=== PATIENT | female | born 1965 ===

== ENCOUNTER 2016-11-25 02:43 | Inpatient (IN) | payer MEDICAID ==
[2016-11-25 03:09] VITALS: BMI 20.7
[2016-11-25 03:26] LABS: HEMATOCRIT 29.7 % (36.0-48.0); MEAN CELL VOLUME 79.4 fL (80.0-105.0); MEAN CORPUSCULAR HEMOGLOBIN 26.2 pg (25.0-35.0); MEAN PLATELET VOLUME 8.7 fl (7.0-11.0); RED CELL DISTRIBUTION WIDTH 16.6 % (11.5-14.5); WHITE BLOOD COUNT 6.1 10^3/ul (4.5-11.0)
--- NOTE | 2016-11-25 03:26 | ED PDOC ---
Arrival/HPI - General Time Seen by Provider: 11/25/16 02:44 Historian: Patient - History of Present Illness Narrative History of Present Illness (Text): 11/25/16 03:19 Susan Kerr is a 51 year old female, whose past medical history includes MT, asthma, bipolar disorder, cholecystitis, chronic kidney disease, depression, diabetes, DVT, hyperlipidemia, hypertension, uterine CA, Lung CA, and thromboembolic disorder, presents to the emergency department complaining of chest pain and right heal pain. Patient was recently transferred to the [facility], after being treated for right heel osteomyelitis at [facility] (Formerly [facility]). Patient on IV Zosyn and is requesting pain medication for right heal pain. Earlier yesterday, patient developed some chest pain, but no shortness of breath. Currently patient denies any chest pain. Denies fever, chills, headache, nausea, vomiting, diarrhea, urinary symptoms, or any other complaints at this time. Time/Duration: Other (yesterday ) Symptom Onset: Gradual Symptom Course: Improving Activities at Onset: Light Past Medical History - Provider Review Nursing Documentation Reviewed: Yes Family/Social History - Physician Review Nursing Documentation Reviewed: Yes Family/Social History: No Known Family HX Allergies/Home Meds Allergies/Adverse Reactions: Allergies ketorolac [From Toradol] Allergy (Verified 11/25/16 02:56) RASH morphine Allergy (Verified 11/25/16 02:56) VOMITING Home Medications: Home Meds Medication Instructions Recorded Confirmed Albuterol/Ipratropium [Duoneb 3 0.5 - 2.5 mg INH Q6 PRN 11/25/16 11/25/16 mg/0.5 mg (3 ml) UD] Carisoprodol [Soma] 350 mg PO QID PRN 11/25/16 11/25/16 Clopidogrel [Plavix] 75 mg PO DAILY 11/25/16 11/25/16 DiphenhydrAMINE [Benadryl] 25 mg PO HS 11/25/16 11/25/16 Docusate [Colace] 100 mg PO DAILY 11/25/16 11/25/16 Fluticasone Nasal [Flonase] 0.05 mg NS DAILY 11/25/16 11/25/16 Furosemide [Lasix] 20 mg PO BID 11/25/16 11/25/16 HYDROmorphone [Dilaudid] 4 mg PO Q4 PRN 11/25/16 11/25/16 Heparin Sod,Porcine/0.9 % NaCl 30 unit IV Q8 PRN 11/25/16 11/25/16 [Heparin-Ns 30 Units/3 ml Syrng] Insulin Glargine,Hum.rec.anlog 20 unit SQ HS 11/25/16 11/25/16 [Lantus Solostar] Metoprolol Tartrate [Lopressor] 25 mg PO BID 11/25/16 11/25/16 Morphine [Morphine Extended 30 mg PO Q12 11/25/16 11/25/16 Release Tab] Nystatin [Nyamyc] 1 applic TOP DAILY 11/25/16 11/25/16 Pregabalin [Lyrica] 50 mg PO BID 11/25/16 11/25/16 Simvastatin 40 mg PO DAILY 11/25/16 11/25/16 Review of Systems - Physician Review All systems were reviewed & negative as marked: Yes - Review of Systems Constitutional: Normal. absent: Fatigue, Fevers Respiratory: absent: SOB, Cough, Sputum Cardiovascular: Chest Pain. absent: Palpitations, Edema Gastrointestinal: absent: Abdominal Pain, Diarrhea, Nausea, Vomiting Genitourinary Female: Normal. absent: Dysuria, Frequency Musculoskeletal: Other (right heal pain ). absent: Arthralgias, Back Pain, Neck Pain Skin: Normal Neurological: Normal. absent: Headache, Dizziness Psychiatric: Normal Physical Exam Vital Signs Reviewed: Yes Vital Signs Temp Pulse Resp BP Pulse Ox 11/25/16 05:28 89 14 151/93 H 100 11/25/16 02:56 98.0 F 100 H 20 147/92 H 96 Temperature: Afebrile Blood Pressure: Normal Pulse: Regular Respiratory Rate: Normal Appearance: Positive for: Well-Appearing, Non-Toxic, Comfortable Pain Distress: None Mental Status: Positive for: Alert and Oriented X 3 - Systems Exam Head: Present: Atraumatic, Normocephalic Pupils: Present: PERRL Extroacular Muscles: Present: EOMI Conjunctiva: Present: Normal Ears: Present: Normal, NORMAL TM, Normal Canal. No: Erythema, TM Bulging, Fluid Mouth: Present: Moist Mucous Membranes Pharnyx: Present: Normal. No: ERYTHEMA, EXUDATE, TONSILS ENLARGED Neck: Present: Normal Range of Motion Respiratory/Chest: Present: Clear to Auscultation, Good Air Exchange. No: Respiratory Distress, Accessory Muscle Use Cardiovascular: Present: Regular Rate and Rhythm, Normal S1, S2. No: Murmurs Abdomen: Present: Normal Bowel Sounds. No: Tenderness, Distention, Peritoneal Signs Upper Extremity: Present: Normal Inspection. No: Cyanosis, Edema Lower Extremity: Present: NORMAL PULSES, Normal ROM, Neurovascularly Intact, Capillary Refill < 2 s, Other (right heal ulcer, dressing in place. ). No: Edema, CALF TENDERNESS, Cyanosis, Valerie's Sign, Tenderness, Swelling, Erythema, Deformity, Temperature Abnormalties Neurological: Present: GCS=15, CN II-XII Intact, Speech Normal, Motor Func Grossly Intact, Normal Sensory Function Skin: Present: Warm Psychiatric: Present: Alert, Oriented x 3, Normal Insight, Normal Concentration Medical Decision Making ED Course and Treatment: 11/25/16 03:28 Impression: a 51 year old female who presents to the ed complaining of chest pain and right heal pain. States chest pain has resolved now. Plan: -- EKG -- Labs, cardiac enzymes -- CXR -- Duplex lower extremity Progress Notes: 11/25/16 03:29 EKG interpreted by me: Sinus Tachycardia @ 117 bpm. PVCs. LAD. non specific ST/T changes. 11/25/16 04:27 CXR interpreted by me: CXR shows lung masses. US tech informs that Doppler negative for DVT. Patient with a positive d-dimer. Due to poor renal function, will need to under go VQ scan. - Lab Interpretations Lab Results: 11/25/16 03:00 11/25/16 03:00 Lab Results 11/25/16 03:00: D-Dimer, Quantitative 1.55 H 11/25/16 03:00: WBC 6.1, RBC 3.74, Hgb 9.8 L, Hct 29.7 L, MCV 79.4 L, MCH 26.2, MCHC 33.0, RDW 16.6 H, Plt Count 314, MPV 8.7 11/25/16 03:00: Sodium 134, Potassium 5.2 H, Chloride 102, Carbon Dioxide 23, Anion Gap 14, BUN 55 H, Creatinine 1.5 H, Est GFR ( Amer) 44, Est GFR ( Non-Af Amer) 36, Random Glucose 379 H*, Calcium 9.5, Total Bilirubin 0.5, AST 58 H, ALT 66 H, Alkaline Phosphatase 704 H, Lactate Dehydrogenase 499, Total Creatine Kinase 50, Troponin I 0.01, Total Protein 8.0, Albumin 4.0, Globulin 4.0, Albumin/Globulin Ratio 1.0 L 11/25/16 03:00: PT 11.6, INR 1.07, APTT 24.2 - RAD Interpretation Radiology Orders: 11/25/16 03:10 CHEST PORTABLE [RAD] Stat 11/25/16 03:12 DUPLEX LOWER EXTRM VEIN BILAT [US] Stat 11/25/16 04:24 LUNG PERF & VENT SCAN [NM] Stat - Medication Orders Current Medication Orders: Discontinued Medications Hydromorphone HCl (Dilaudid) 2 mg IVP STAT STA Stop: 11/25/16 05:17 Last Admin: 11/25/16 05:27 Dose: 2 mg - Transfer of Care Patient signed out to Dr:: Peoln Pending Radiology Studies:: V/Q Scan/reassess/anticipate admission/final disposition - Scribe Statement The provider has reviewed the documentation as recorded by the Elena Guerrier Provider Attestation: All medical record entries made by the Jennieibe were at my direction and personally dictated by me. I have reviewed the chart and agree that the record accurately reflects my personal performance of the history, physical exam, medical decision making, and the department course for this patient. I have also personally directed, reviewed, and agree with the discharge instructions and disposition. Disposition/Present on Arrival - Present on Arrival Any Indicators Present on Arrival: No - Disposition Have Diagnosis and Disposition been Completed?: No Diagnosis: Chest pain Disposition Time: 07:00 Condition: STABLE Discharge Instructions (ExitCare): Chest Pain (ED)
[2016-11-25 03:27] LABS: BILIRUBIN,TOTAL 0.5 mg/dL (0.2-1.3); CALCIUM 9.5 mg/dL (8.4-10.5); POTASSIUM 5.2 mmol/L (3.6-5.0)
[2016-11-25 03:33] LABS: INR 1.07 (0.93-1.08); PARTIAL THROMBOPLASTIN TIME 24.2 Seconds (23.7-30.8)
[2016-11-25 03:38] LABS: TROPONIN I 0.01 ng/mL
[2016-11-25] MEDS ORDERED: HYDROmorphone 2 mg/ml ISec IVP STA (05:16)
--- NOTE | 2016-11-25 08:45 | CARD ---
APPROVED REPORT EKG Measurement Heart [id number] <Conclusion> Sinus tachycardia Left axis deviation Low voltage QRS Abnormal ECG
--- NOTE | 2016-11-25 08:51 | NM ---
PROCEDURE: Ventilation-perfusion scan HISTORY: r/o DVT COMPARISON: Not available TECHNIQUE: Pulmonary ventilation scan was performed utilizing 35.0 mCi of technetium 99 M DTPA, inhaled. Images of the lungs were obtained in multiple projections. A pulmonary perfusion scan was performed utilizing 4.0 mCi of technetium 99 M and a a administered intravenously. Images of the lungs were obtained in multiple projections. FINDINGS: There is no pulmonary perfusion defect identified. There is no pulmonary ventilation defect identified. Normal examination. No evidence of pulmonary embolism IMPRESSION: Normal examination. No evidence of pulmonary embolism.
--- NOTE | 2016-11-25 11:01 | RAD ---
HISTORY: pain COMPARISON: No prior. FINDINGS: LUNGS: Examination limited. Patient's hands obscure lung apices. No consolidation identified. PLEURA: No significant pleural effusion identified, no pneumothorax apparent. CARDIOVASCULAR: Normal. OSSEOUS STRUCTURES: No significant abnormalities. VISUALIZED UPPER ABDOMEN: Normal. OTHER FINDINGS: None. IMPRESSION: Normal limited examination.
[2016-11-25] MEDS ORDERED: Albuterol-Ipratrop 3 mg / 0.5 (3 ml) UD IH PRN (11:33)
[2016-11-25] MEDS ORDERED: Morphine 2 mg/ml ISec IVP PRN (12:09)
[2016-11-25] MEDS: Insulin Reg-LOW-Coverage SC SCH ×2 (12:30→18:16)
--- NOTE | 2016-11-25 12:51 | US ---
HISTORY: Leg pain and swelling. Evaluate for DVT PHYSICIAN(S): Celio Elder MD. TECHNIQUE: Duplex sonography and color-flow Doppler with graded compression were used to evaluate the deep venous systems of both lower extremities. The left tibial vessels are not visualized. FINDINGS: The visualized deep venous systems of both lower extremities are sonographically normal and compressible. Normal wave forms and augmentation are seen. There is no sonographic evidence for deep venous thrombosis in the visualized segments of both lower extremities. IMPRESSION: No sonographic evidence for deep venous thrombosis in the visualized segments of both lower extremities. Limited study
[2016-11-25 13:11] LABS: CHOLESTEROL 201 mg/dL (130-200); PHOSPHOROUS 3.6 mg/dL (2.5-4.5)
[2016-11-25 13:22] LABS: TROPONIN I < 0.01 ng/mL
[2016-11-25 13:26] LABS: IRON 78 ug/dL (45-180)
--- NOTE | 2016-11-25 13:30 | CP.PCM.CON ---
History of Present Illness - History of Present Illness History of Present Illness: left heel pain and ulcer 51 yo female [place] LEFT ARM PIC LINE Review of Systems - Constitutional Constitutional: Lethargy, Weight Loss, Weakness - EENT Eyes: absent: As Per HPI, Blind Spots, Blurred Vision, Change in Vision, Decreased Night Vision, Diplopia, Discharge, Dry Eye, Exophthalmos, Floaters, Irritation, Itchy Eyes, Loss of Peripheral Vision, Pain, Photophobia, Requires Corrective Lenses, Sees Flashes, Spots in Vision, Tunnel Vision, Other Visual Disturbances, Loss of Vision, Other Ears: absent: As Per HPI, Decreased Hearing, Ear Discharge, Ear Pain, Tinnitus, Abnormal Hearing, Disequilibrium, Dizziness, Other Nose/Mouth/Throat: absent: As Per HPI, Epistaxis, Nasal Congestion, Nasal Discharge, Nasal Obstruction, Nasal Trauma, Nose Pain, Post Nasal Drip, Sinus Pain, Sinus Pressure, Bleeding Gums, Change in Voice, Dental Pain, Dry Mouth, Dysphagia, Halitosis, Hoarsness, Lip Swelling, Mouth Lesions, Mouth Pain, Odynophagia, Sore Throat, Throat Swelling, Tongue Swelling, Facial Pain, Neck Pain, Neck Mass, Other - Breasts Breasts: absent: As Per HPI, Change in Shape, Mass, Pain, Nipple Discharge, Nipple Inversion, Skin Changes, Swelling, Other - Cardiovascular Cardiovascular: absent: As Per HPI, Acrocyanosis, Chest Pain, Chest Pain at Rest , Chest Pain with Activity, Claudication, Diaphoresis, Dyspnea, Dyspnea on Exertion, Edema, Irregular Heart Rhythm, Pain Radiating to Arm/Neck/Jaw, Leg Edema, Leg Ulcers, Lightheadedness, Orthopnea, Palpitations, Paroxysmal Nocturnal Dyspnea, Pedal Edema, Radiating Pain, Rapid Heart Rate, Slow Heart Rate, Syncope, Other - Respiratory Respiratory: absent: As Per HPI, Cough, Dyspnea, Hemoptysis, Dyspnea on Exertion , Wheezing, Snoring, Stridor, Pain on Inspiration, Chest Congestion, Excessive Mucous Production, Change in Mucous Color, Pain with Coughing, Other - Gastrointestinal Gastrointestinal: absent: As Per HPI, Abdominal Pain, Belching, Bloating, Change in Bowel Habits, Change in Stool Character, Coffee Ground Emesis, Constipation, Cramping, Diarrhea, Dyspepsia, Dysphagia, Early Satiety, Excessive Flatus, Fecal Incontinence, Heartburn, Hematemesis, Hematochezia, Loose Stools, Melena, Nausea, Odynophagia, Temesmus, Vomiting, Other - Genitourinary Genitourinary: absent: As Per HPI, Change in Urinary Stream, Difficulty Urinating, Dysuria, Flank Pain, Hematuria, Pyuria, Nocturia, Urinary Incontinence, Urinary Frequency, Urinary Hesitance, Urinary Urgency, Voiding Freq/Small Amts, Freq UTI, Hx Renal/Bladder Calculi, Hx /Renal Surgery, Bladder Distension, Other - Musculoskeletal Musculoskeletal: Abnormal Gait, Muscle Weakness - Integumentary Integumentary: Lesions, Non-Healing Lesions, Skin Pain, Skin Ulcer (LEFT HEAL LARGE ULCR DICHARGE ERYTHEMA), Swelling, Wounds - Endocrine Endocrine: absent: As Per HPI, Change in Body Appearance, Change in Libido, Cold Intolorance, Deepening of Voice, Excessive Sweating, Fatigue, Flushing, Heat Intolorance, Increase in Ring/Shoe/Hat Size, Palpitations, Polydipsia, Polyphagia, Polyuria, Other Past Patient History - Past Medical History & Family History Past Medical History?: Yes - Past Social History Smoking Status: Never Smoked - CARDIAC Hx Heart Attack: Yes Hx Hypertension: Yes - PULMONARY Hx Asthma: Yes Hx Lung Cancer: Yes - HEENT Hx HEENT Problems: Yes Other/Comment: diff vision - RENAL Hx Renal Failure: Yes Other/Comment: cancer - ENDOCRINE/METABOLIC Hx Diabetes Mellitus Type 2: Yes - INTEGUMENTARY Other/Comment: osteomylitis r foot - MUSCULOSKELETAL/RHEUMATOLOGICAL Hx Osteomyelitis: Yes (r foot) Other/Comment: dvt rue - PSYCHIATRIC Hx Bipolar Disorder: Yes Hx Depression: Yes Hx Substance Use: No Other/Comment: drug seeking - SURGICAL HISTORY Other/Comment: r nephrectomy/r foot. / picc left upper arm Meds Allergies/Adverse Reactions: Allergies Allergy/AdvReac Type Severity Reaction Status Date / Time ketorolac [From Toradol] Allergy RASH Verified 11/25/16 02:56 morphine Allergy VOMITING Verified 11/25/16 02:56 - Medications Medications: Current Medications Albuterol/Ipratropium (Duoneb 3 Mg/0.5 Mg (3 Ml) Ud) 3 ml IH [id number] PRN PRN Reason: Shortness of Breath Aspirin (Aspirin Chewable) 81 mg PO DAILY [facility] Atorvastatin Calcium (Lipitor) 20 mg PO DIN [facility] Clopidogrel Bisulfate (Plavix) 75 mg PO DAILY [facility] Last Admin: 11/25/16 12:36 Dose: Not Given Docusate Sodium (Colace) 100 mg PO DAILY [facility] Furosemide (Lasix) 20 mg PO BID [facility] Heparin Sodium (Porcine) (Heparin) 5,000 units SC Q12 MIKKI PRN Reason: Protocol Hydromorphone HCl (Dilaudid) 0.5 mg IVP Q4H PRN PRN Reason: Pain, severe (8-10) Sodium Chloride (Sodium Chloride 0.9%) 1,000 mls @ 75 mls/hr IV .[id number] [facility] Ceftaroline Fosamil 400 mg/ (Sodium Chloride) 100 mls @ 100 mls/hr IVPB Q12 MIKKI PRN Reason: Protocol Stop: 12/04/16 22:01 Insulin Detemir (Levemir) 10 unit SC HS [facility] Insulin Human Regular (Humulin R Low) 0 units SC ACHS MIKKI PRN Reason: Protocol Last Admin: 11/25/16 12:30 Dose: 4 units Metoprolol Tartrate (Lopressor) 25 mg PO BID [facility] Pantoprazole Sodium (Protonix Inj) 40 mg IVP DAILY [facility] Physical Exam - Constitutional Appears: Well - Head Exam Head Exam: ATRAUMATIC, NORMAL INSPECTION, NORMOCEPHALIC - Eye Exam Eye Exam: EOMI, Normal appearance, PERRL Pupil Exam: NORMAL ACCOMODATION, PERRL - ENT Exam ENT Exam: Mucous Membranes Moist, Normal Exam. absent: Mucous Membranes Dry, Normal External Ear Exam, Normal Oropharynx, TM's Normal Bilaterally - Neck Exam Neck exam: Positive for: Normal Inspection - Respiratory Exam Respiratory Exam: Clear to Auscultation Bilateral, NORMAL BREATHING PATTERN. absent: Accessory Muscle Use, Chest Wall Tenderness, Decreased Breath Sounds, Prolonged Expiratory Phase, Rales, Rhonchi, Wheezes, Respiratory Distress, Stridor - Cardiovascular Exam Cardiovascular Exam: REGULAR RHYTHM. absent: Bradycardia, Tachycardia, Clicks, Diastolic murmur, Gallop, Irregular Rhythm, JVD, RRR, Rubs, +S1, +S2, +S4, Systolic Murmur - GI/Abdominal Exam GI & Abdominal Exam: Normal Bowel Sounds, Soft - Rectal Exam Rectal Exam: NORMAL INSPECTION. absent: Deferred, Black Stool, Bloody Stool, Hemorrhoids, Fecal Impaction - Exam Exam: Circumcision, NORMAL INSPECTION External exam: NORMAL EXTERNAL EXAM Speculum exam: NORMAL SPECULUM EXAM Bimanual exam: NORMAL BIMANUAL EXAM - Extremities Exam Extremities exam: Positive for: normal inspection - Expanded Lower Extremities Exam Left Foot/Toe exam: abrasion, full ROM, laceration, nail avulsion, normal inspection , onychomycosis, puncture wound, subungual hematoma, swelling, tenderness, tenderness at base of 5th metatarsal, amputation, calcaneal tenderness, crepitus , deformity, dislocation, ecchymosis, erythema (LEFT HEEL LARGE ULCERN AND DISCHARGE), foreign body - Back Exam Back exam: NORMAL INSPECTION - Neurological Exam Neurological exam: Alert, CN II-XII Intact, Normal Gait, Oriented x3, Reflexes Normal - Psychiatric Exam Psychiatric exam: Normal Affect, Normal Mood - Skin Skin Exam: Dry, Intact, Normal Color, Warm Results - Vital Signs Recent Vital Signs: Last Vital Signs Temp 98.1 F 11/25/16 11:00 Pulse 93 H 11/25/16 11:00 Resp 16 11/25/16 11:00 BP 142/77 11/25/16 11:00 Pulse Ox 95 11/25/16 11:00 - Labs Result Diagrams: 11/25/16 03:00 11/25/16 03:00 Assessment & Plan (1) Chest pain Status: Acute (2) Intractable left heel pain Status: Acute (3) Open wound of left heel Status: Acute (4) Cellulitis of left heel Status: Acute (5) Foot osteomyelitis, left Status: Acute (6) Renal failure Status: Acute (7) Hepatitis Status: Acute - Assessment and Plan (Free Text) Plan: [facility] VASCULAR COOK CULTURES PT HAS LEFT ARM PIC LINE DOPPLERS WOUND CULTURES RENAL EVAL OLD RECORDS ,CULTURE AND IMAGING - Date & Time Date: 11/25/16 Time: 13:00
--- NOTE | 2016-11-25 14:15 | CP.PCM.CON ---
History of Present Illness - History of Present Illness History of Present Illness: reason for Consult: chest pain, Hx of CAD. 51 year old female tx from [facility] b/c of nonhealing left foot ulcer, Hx of CAD, S/p PTCA with two stents at [facility] 2 years ago, c/o reproducible chest pain and non healing ulcer on lef foot PMHX. Bipolar CAD as above CKD PAD [place] ca [place] DVT with thromoembolic issuesHx of AK as above shx denies smoking, ETOH mostly bed bound. Past Patient History - Past Medical History & Family History Past Medical History?: Yes - Past Social History Smoking Status: Never Smoked - CARDIAC Hx Heart Attack: Yes Hx Hypertension: Yes - PULMONARY Hx Asthma: Yes Hx Lung Cancer: Yes - HEENT Hx HEENT Problems: Yes Other/Comment: diff vision - RENAL Hx Renal Failure: Yes Other/Comment: cancer - ENDOCRINE/METABOLIC Hx Diabetes Mellitus Type 2: Yes - INTEGUMENTARY Other/Comment: osteomylitis r foot - MUSCULOSKELETAL/RHEUMATOLOGICAL Hx Osteomyelitis: Yes (r foot) Other/Comment: dvt rue - PSYCHIATRIC Hx Bipolar Disorder: Yes Hx Depression: Yes Hx Substance Use: No Other/Comment: drug seeking - SURGICAL HISTORY Other/Comment: r nephrectomy/r foot. / picc left upper arm Meds Allergies/Adverse Reactions: Allergies Allergy/AdvReac Type Severity Reaction Status Date / Time ketorolac [From Toradol] Allergy RASH Verified 11/25/16 02:56 morphine Allergy VOMITING Verified 11/25/16 02:56 - Medications Medications: Current Medications Albuterol/Ipratropium (Duoneb 3 Mg/0.5 Mg (3 Ml) Ud) 3 ml IH [id number] PRN PRN Reason: Shortness of Breath Aspirin (Aspirin Chewable) 81 mg PO DAILY [facility] Atorvastatin Calcium (Lipitor) 20 mg PO DIN [facility] Clopidogrel Bisulfate (Plavix) 75 mg PO DAILY [facility] Last Admin: 11/25/16 12:36 Dose: Not Given Docusate Sodium (Colace) 100 mg PO DAILY [facility] Furosemide (Lasix) 20 mg PO BID [facility] Heparin Sodium (Porcine) (Heparin) 5,000 units SC Q12 [facility] PRN Reason: Protocol Hydromorphone HCl (Dilaudid) 0.5 mg IVP Q4H PRN PRN Reason: Pain, severe (8-10) Sodium Chloride (Sodium Chloride 0.9%) 1,000 mls @ 75 mls/hr IV .[id number] [facility] Ceftaroline Fosamil 400 mg/ (Sodium Chloride) 100 mls @ 100 mls/hr IVPB Q12 [facility] PRN Reason: Protocol Stop: 12/04/16 22:01 Insulin Detemir (Levemir) 10 unit SC HS [facility] Insulin Human Regular (Humulin R Low) 0 units SC ACHS [facility] PRN Reason: Protocol Last Admin: 11/25/16 12:30 Dose: 4 units Metoprolol Tartrate (Lopressor) 25 mg PO BID [facility] Pantoprazole Sodium (Protonix Inj) 40 mg IVP DAILY [facility] Results - Vital Signs Recent Vital Signs: Last Vital Signs Temp 98.1 F 11/25/16 11:00 Pulse 93 H 11/25/16 11:00 Resp 16 11/25/16 11:00 BP 142/77 11/25/16 11:00 Pulse Ox 95 11/25/16 11:00 - Labs Result Diagrams: 11/25/16 03:00 11/25/16 03:00 Labs: Laboratory Results - last 24 hr 11/25/16 11/25/16 11/25/16 12:55 12:55 12:55 Phosphorus 3.6 Magnesium 2.0 Iron TIBC % Saturation Troponin I < 0.01 < 0.01 NT-Pro-B Natriuret Pep 1060 H Triglycerides 111 Cholesterol 201 H LDL Cholesterol Direct 103 HDL Cholesterol 54 TSH 3rd Generation 3.86 11/25/16 12:55 Phosphorus Magnesium Iron 78 TIBC 285 % Saturation 27 Troponin I NT-Pro-B Natriuret Pep Triglycerides Cholesterol LDL Cholesterol Direct HDL Cholesterol TSH 3rd Generation - EKG Data EKG comments: sinus tach at 108 Assessment & Plan - Assessment and Plan (Free Text) Assessment: 51 year old female tx from [facility] with Non healing left foot ulcer C/o atypical chest pain , tenderness with reproducible Hx of Mi, Hx of PTCa two years ago in [facility] HTN Hyperlidemias CKD Hx Of DVT with thrombo-embolic issues Bipolar diorder Hx of Ut Ca hx of lung Ca So far no evidece of ACS / STEMI/NSTEMI Plan: ASA/ Plavix/ beta rima/ statin/Lovenox f/o serial CPK, doubt mi lizzy foloow echo to assessd lvfx TSH. Lipids profile, Ha1c. thx
[2016-11-25] MEDS: Sodium Chloride 0.9% 1,000 ML IV SCH (14:58)
[2016-11-25] MEDS: HYDROmorphone 0.5 mg/0.5 ml ISec IVP PRN ×3 (15:02→22:57)
--- NOTE | 2016-11-25 16:13 | CP.PCM.HP ---
<TRES ARTHUR - Last Filed: 11/25/16 16:13> History of Present Illness - History of Present Illness History of Present Illness: History of Present Illness: cc: chest pain/L heel pain HPI: 51 year old female presents with a one day duration of chest pain and left heel pain. Patient reports that the chest pain lasted about one hour in duration and started when she was mistakenly transferred to an [facility] by mistake after undergoing wound debridement of an ulcer complicated by osteomyelitis on her L heel one week ago at [facility]. Today she reports that the chest pain is still present but has lessened in intensity. In the ED, she reported that the chest pain had completely resolved but that she began experiencing it to a lesser degree once she was moved to the floor and that it was now accompanied by palpitations. She reports that her L heel pain has been present for quite some time and that this isn't a new complication. Patient denies fevers, chills, headaches, changes in vision, LOC, dysphagia, shortness of breath, hemoptysis, focal motor deficits, abdominal pain, nausea, vomiting, or diarrhea. 12point ROS as per HPI above, otherwise negative PMHx: PR (2016), hyperlipidemia, diabetes, HTN, CKD, asthma, bipolar disease, cholecystitis, depression, DVT, uterine cancer, lung cancer and thromboembolic disease PSHx: Removal of R kidney d/t cancer Allergies: Ketorolac, Morphine Family Hx: Father: Heart Attack, Diabetes; Mother: Lung Ca Social Hx: Nonsmoker, No alcohol, No drug use, Lives in [place] with son, aunt and cousin. Present on Admission - Present on Admission Any Indicators Present on Admission: No History of DVT/PE: Yes History of Uncontrolled Diabetes: Yes Urinary Catheter: No Decubitus Ulcer Present: No Past Patient History - Tetanus Immunizations Tetanus Immunization: Unknown - Past Medical History & Family History Past Medical History?: Yes - Past Social History Smoking Status: Never Smoked Alcohol: None Drugs: Denies Home Situation {Lives}: With Family - CARDIAC Hx Heart Attack: Yes Hx Hypertension: Yes - PULMONARY Hx Asthma: Yes Hx Lung Cancer: Yes - HEENT Hx HEENT Problems: Yes Other/Comment: diff vision - RENAL Hx Chronic Kidney Disease: Yes Hx Renal Failure: Yes Other/Comment: cancer - ENDOCRINE/METABOLIC Hx Diabetes Mellitus Type 2: Yes - INTEGUMENTARY Other/Comment: osteomylitis r foot - MUSCULOSKELETAL/RHEUMATOLOGICAL Hx Osteomyelitis: Yes (r foot) Other/Comment: dvt rue - PSYCHIATRIC Hx Bipolar Disorder: Yes Hx Depression: Yes Hx Substance Use: No Other/Comment: drug seeking - SURGICAL HISTORY Other/Comment: r nephrectomy/r foot. / picc left upper arm Meds Allergies/Adverse Reactions: Allergies Allergy/AdvReac Type Severity Reaction Status Date / Time ketorolac [From Toradol] Allergy RASH Verified 11/25/16 02:56 morphine Allergy VOMITING Verified 11/25/16 02:56 Physical Exam - Constitutional Appears: Unkempt - Head Exam Head Exam: ATRAUMATIC, NORMAL INSPECTION - Eye Exam Eye Exam: EOMI, Normal appearance - ENT Exam ENT Exam: Mucous Membranes Moist, Normal Exam - Neck Exam Neck exam: Positive for: Full Rom - Respiratory Exam Respiratory Exam: Clear to Auscultation Bilateral, NORMAL BREATHING PATTERN. absent: Rales, Rhonchi, Wheezes, Respiratory Distress - Cardiovascular Exam Cardiovascular Exam: REGULAR RHYTHM, RRR. absent: Systolic Murmur - GI/Abdominal Exam GI & Abdominal Exam: Normal Bowel Sounds. absent: Distended, Firm, Guarding, Tenderness - Extremities Exam Extremities exam: Negative for: calf tenderness, pedal edema - Neurological Exam Neurological exam: Alert, Oriented x3 - Psychiatric Exam Psychiatric exam: Flat Affect - Skin Skin Exam: Dry, Intact, Normal Color, Warm Additional comments: Open wound on L heel; PICC line in place on L upper ext Results - Vital Signs Recent Vital Signs: Last Vital Signs Temp 98.1 F 11/25/16 11:00 Pulse 93 H 11/25/16 11:00 Resp 16 11/25/16 11:00 BP 142/77 11/25/16 11:00 Pulse Ox 95 11/25/16 11:00 - Labs Result Diagrams: 11/25/16 03:00 11/25/16 03:00 Labs: Laboratory Results - last 24 hr 11/25/16 11/25/16 11/25/16 12:55 12:55 12:55 Phosphorus 3.6 Magnesium 2.0 Iron TIBC % Saturation Troponin I < 0.01 < 0.01 NT-Pro-B Natriuret Pep 1060 H Triglycerides 111 Cholesterol 201 H LDL Cholesterol Direct 103 HDL Cholesterol 54 TSH 3rd Generation 3.86 11/25/16 12:55 Phosphorus Magnesium Iron 78 TIBC 285 % Saturation 27 Troponin I NT-Pro-B Natriuret Pep Triglycerides Cholesterol LDL Cholesterol Direct HDL Cholesterol TSH 3rd Generation Assessment & Plan - Assessment and Plan (Free Text) Assessment: 51 yo female with a history of PR, hyperlipidemia, diabetes, HTN, CKD, asthma, DVT, uterine cancer, lung cancer and thromboembolic disease S/P left heel osteo debridement presents with chest pain and left heel pain. 1. Chest pain/ACS rule out -EKG in ED showed sinus tachycardia and left axis deviation -cardiology consulted -first troponin negative -BNP elevated at 1060 -ECHO pending -TSH, lipid panel, A1c -mag/phos within normal limits -continue aspirin, lipitor, plavix, lasix, lopressor 2. Elevated d-dimer/history of cancer and thromboembolic disease -V/Q scan negative -LE venous doppler showed no DVT's -placed on heparin drip 3. S/P Left heel ulcer debridement/osteomyelitis -consulted ID and podiatry -started on ceftaroline -wound and blood cultures pending -pt has left arm PICC line -will try to obtain records of procedure done at [facility] -PT/OT eval 4. Anemia -Hb/Hct are 9.8/29.7 -B12, Folate, Iron Studies pending 5. Asthma -Duoneb q4 PRN 6. GI/DVT prophylaxis -protonix/heparin Patient seen and case discussed with attending physician, Dr. Poe. Decision To Admit - . Admitting Physician: Matthew Poe <Matthew Poe - Last Filed: 11/25/16 17:47> Results - Vital Signs Recent Vital Signs: Last Vital Signs Temp 98.2 F 11/25/16 11:19 Pulse 90 11/25/16 11:19 Resp 16 11/25/16 11:19 BP 163/83 H 11/25/16 11:19 Pulse Ox 95 11/25/16 11:00 - Labs Result Diagrams: 11/25/16 03:00 11/25/16 03:00 Labs: Laboratory Results - last 24 hr 11/25/16 11/25/16 11/25/16 12:55 12:55 12:55 Phosphorus 3.6 Magnesium 2.0 Iron TIBC % Saturation Ferritin 33.1 Troponin I < 0.01 < 0.01 NT-Pro-B Natriuret Pep 1060 H Triglycerides 111 Cholesterol 201 H LDL Cholesterol Direct 103 HDL Cholesterol 54 TSH 3rd Generation 3.86 11/25/16 12:55 Phosphorus Magnesium Iron 78 TIBC 285 % Saturation 27 Ferritin Troponin I NT-Pro-B Natriuret Pep Triglycerides Cholesterol LDL Cholesterol Direct HDL Cholesterol TSH 3rd Generation Attending/Attestation - Attestation I have personally seen and examined this patient.: Yes I have fully participated in the care of the patient.: Yes I have reviewed all pertinent clinical information: Yes Notes (Text): 11/25/16 17:38 51 year old female with past medical history of PR, diabetes, hypertension, ? history of DVT, ?history of uterine and lung cancer (patient is poor historian) , chronic left heel ulcer and ?OM who was recently discharged to [place] on iv antibiotics who presents with complaint of chest pain. Will obtain serial cardiac enzymes to rule out ACS. Cardiology evaluation is requested and echocardiogram is ordered. Continue with aspirin, plavix, statin and lopressor. Ddimer was elevated however VQ scan and LE doppler is negative. Patient is on SC heparin. ID and podiatry evaluation is requested for left heel ulcer. Patient reports she was on iv antibiotics which we will resume and request for prior recent medical records from [facility]. Patient also reports CKD and anemia (possibly from anemia of chronic disease) which we will continue to monitor. Patient reports she will follow up with her pmd/oncologist for history of lung and uterine cancer. Matthew Poe MD Hospitalist.
[2016-11-25 17:35] LABS: URINE BILIRUBIN NEGATIVE (NEGATIVE); URINE BLOOD TRACE-INTACT (NEGATIVE); URINE GLUCOSE (UA) 250 mg/dL (NEGATIVE); URINE KETONE NEGATIVE (NEGATIVE); URINE LEUKOCYTE ESTERASE NEGATIVE Leu/uL (NEGATIVE); URINE PROTEIN 100 mg/dL (<30 mg/dL); URINE UROBILINOGEN 0.2 E.U./dL (<1 E.U./dL)
[2016-11-25 17:42] LABS: URINE APPEARANCE CLEAR (CLEAR); URINE COLOR YELLOW (YELLOW)
[2016-11-25 17:49] LABS: FOLATE > 20.0 ng/mL
[2016-11-25 17:57] LABS: URINE WBC 0 - 2 /hpf (0-6)
[2016-11-25] MEDS ORDERED: Piperacillin/Tazobact 3.375 gm 100 ML IVPB SCH (18:00)
[2016-11-25] MEDS: Insulin Detemir 100 units/ml Vial (Levemir) SC SCH (21:53)
[2016-11-26] MEDS: Insulin Reg-LOW-Coverage SC SCH ×4 (00:14→19:30)
[2016-11-26] MEDS ORDERED: HYDROmorphone 0.5 mg/0.5 ml ISec IVP STA ×2 (00:41→14:17)
[2016-11-26] MEDS: Sodium Chloride 0.9% 1,000 ML IV SCH (00:55)
[2016-11-26] MEDS: HYDROmorphone 0.5 mg/0.5 ml ISec IVP PRN ×3 (03:04→13:29)
[2016-11-26 06:31] LABS: ADD MANUAL DIFF? NO
[2016-11-26 06:41] LABS: BASO # 0.04 K/mm3 (0.0-2.0); BASO % 0.7 % (0.0-3.0); EOS # 0.2 (0.0-0.7); EOS % 3.1 % (1.5-5.0); GRAN # 2.72 (1.4-6.5); GRAN % 44.6 % (50.0-68.0); HEMATOCRIT 27.5 % (36.0-48.0); LYMPH # 2.8 (1.2-3.4); LYMPH % 45.2 % (22.0-35.0); MEAN CELL VOLUME 79.9 fL (80.0-105.0); MEAN CORPUSCULAR HEMOGLOBIN 25.9 pg (25.0-35.0); MEAN CORPUSCULAR HGB CONC 32.4 g/dl (31.0-37.0); MEAN PLATELET VOLUME 9.2 fl (7.0-11.0); MONO # 0.4 (0.1-0.6); MONO % 6.4 % (1.0-6.0); PLATELET COUNT 283 10^3/uL (120.0-450.0); RED CELL DISTRIBUTION WIDTH 16.8 % (11.5-14.5); WHITE BLOOD COUNT 6.1 10^3/ul (4.5-11.0)
[2016-11-26 07:08] LABS: ALB/GLOB RATIO 0.9 (1.1-1.8); BILIRUBIN,TOTAL 0.5 mg/dL (0.2-1.3); CALCIUM 9.3 mg/dL (8.4-10.5); MAGNESIUM 1.8 mg/dL (1.7-2.2); PHOSPHOROUS 3.3 mg/dL (2.5-4.5); POTASSIUM 4.1 mmol/L (3.6-5.0); TOTAL PROTEIN 7.2 g/dL (5.8-8.3)
[2016-11-26] MEDS ORDERED: HYDROmorphone 1 mg/ml ISec IVP STA (09:11)
--- NOTE | 2016-11-26 09:42 | CP.PCM.PN ---
Subjective - Date & Time of Evaluation Date of Evaluation: 11/26/16 Time of Evaluation: 07:00 - Subjective Subjective: Denies any chest pain today, but mild tender on left side of chest. Objective - Vital Signs/Intake and Output Vital Signs (last 24 hours): Temp Pulse Resp BP Pulse Ox 97.8 F 78 18 128/74 98 11/26/16 04:00 11/26/16 04:00 11/26/16 04:00 11/26/16 04:00 11/26/16 04:00 Intake and Output: 11/26/16 11/26/16 06:59 18:59 Intake Total 310 Output Total 1200 Balance -890 - Medications Medications: Current Medications Albuterol/Ipratropium (Duoneb 3 Mg/0.5 Mg (3 Ml) Ud) 3 ml IH [id number] PRN PRN Reason: Shortness of Breath Aspirin (Aspirin Chewable) 81 mg PO DAILY [facility] Atorvastatin Calcium (Lipitor) 20 mg PO DIN [facility] Last Admin: 11/25/16 18:15 Dose: 20 mg Clopidogrel Bisulfate (Plavix) 75 mg PO DAILY [facility] Last Admin: 11/25/16 12:36 Dose: Not Given Docusate Sodium (Colace) 100 mg PO DAILY [facility] Furosemide (Lasix) 20 mg PO BID [facility] Last Admin: 11/25/16 18:15 Dose: 20 mg Heparin Sodium (Porcine) (Heparin) 5,000 units SC Q12 [facility] PRN Reason: Protocol Last Admin: 11/26/16 00:19 Dose: Not Given Hydromorphone HCl (Dilaudid) 0.5 mg IVP Q4H PRN PRN Reason: Pain, severe (8-10) Last Admin: 11/26/16 07:40 Dose: 0.5 mg Sodium Chloride (Sodium Chloride 0.9%) 1,000 mls @ 75 mls/hr IV .[id number] [facility] Last Admin: 11/26/16 00:55 Dose: 75 mls/hr Ceftaroline Fosamil 400 mg/ (Sodium Chloride) 100 mls @ 100 mls/hr IVPB Q12 [facility] PRN Reason: Protocol Stop: 12/04/16 22:01 Last Admin: 11/25/16 21:52 Dose: 100 mls/hr Insulin Detemir (Levemir) 10 unit SC [facility] Last Admin: 11/25/16 21:53 Dose: 10 unit Insulin Human Regular (Humulin R Low) 0 units SC ACHS [facility] PRN Reason: Protocol Last Admin: 11/26/16 00:14 Dose: Not Given Metoprolol Tartrate (Lopressor) 25 mg PO BID [facility] Last Admin: 11/25/16 18:14 Dose: 25 mg Pantoprazole Sodium (Protonix Inj) 40 mg IVP DAILY [facility] - Labs Labs: 11/26/16 05:45 11/26/16 05:45 PT 11.6 Seconds (9.9-11.8) 11/25/16 03:00 INR 1.07 (0.93-1.08) 11/25/16 03:00 APTT 24.2 Seconds (23.7-30.8) 11/25/16 03:00 - Respiratory Exam Respiratory Exam: Chest Wall Tenderness Additional comments: Tenderness on left dide of chest. Assessment and Plan - Assessment and Plan (Free Text) Assessment: Atypical chest pain, with tenderness on left side of chest. Hx of CAD ,S/p Ptca 2 tears ago in [facility] HTN Hyperlidemia Non healing wouind in left foot Hx of Ut ca Hx of lung Csa No evidence of ACS/ nor unstable angina CKD Bipolar disorder Plan: Aggressive medical treatment Dc telemetry.
--- NOTE | 2016-11-26 10:42 | CP.PCM.CON ---
<Andree Mcdonough - Last Filed: 11/26/16 10:37> History of Present Illness - History of Present Illness History of Present Illness: 51 year old female with PMHx including LA, hyperlipidemia, diabetes, HTN, CKD, asthma, bipolar disease, cholecystitis, depression, DVT, uterine cancer, lung cancer and thromboembolic disease was seen at bedside with attending, Dr. Brady regarding left heel ulcer. Patient states that a week ago she was at a [facility] ([place]) and had a wound debridement of her left heel. She states that she has pain to her left heel. Admits that she has not walked in 4 years. She denies any n/v/f/c/sob/cp. Past Patient History - Tetanus Immunizations Tetanus Immunization: Unknown - Past Medical History & Family History Past Medical History?: Yes - Past Social History Smoking Status: Never Smoked Alcohol: None Drugs: Denies Home Situation {Lives}: With Family - CARDIAC Hx Heart Attack: Yes Hx Hypertension: Yes - PULMONARY Hx Asthma: Yes Hx Lung Cancer: Yes - HEENT Hx HEENT Problems: Yes Other/Comment: diff vision - RENAL Hx Chronic Kidney Disease: Yes Hx Renal Failure: Yes Other/Comment: cancer - ENDOCRINE/METABOLIC Hx Diabetes Mellitus Type 2: Yes - HEMATOLOGICAL/ONCOLOGICAL Hx Anemia: Yes Hx Cancer: Yes Hx Chemotherapy: Yes - INTEGUMENTARY Other/Comment: osteomylitis r foot - MUSCULOSKELETAL/RHEUMATOLOGICAL Hx Osteomyelitis: Yes (r foot) Other/Comment: dvt rue - GASTROINTESTINAL Hx Gastrointestinal Disorders: No - GENITOURINARY/GYNECOLOGICAL Hx Genitourinary Disorders: No - PSYCHIATRIC Hx Bipolar Disorder: Yes Hx Depression: Yes Hx Substance Use: No Other/Comment: drug seeking - SURGICAL HISTORY Other/Comment: r nephrectomy/r foot. / picc left upper arm Meds Allergies/Adverse Reactions: Allergies Allergy/AdvReac Type Severity Reaction Status Date / Time ketorolac [From Toradol] Allergy RASH Verified 11/25/16 02:56 - Medications Medications: Current Medications Albuterol/Ipratropium (Duoneb 3 Mg/0.5 Mg (3 Ml) Ud) 3 ml IH [id number] PRN PRN Reason: Shortness of Breath Aspirin (Aspirin Chewable) 81 mg PO DAILY [facility] Last Admin: 11/26/16 10:18 Dose: 81 mg Atorvastatin Calcium (Lipitor) 20 mg PO DIN [facility] Last Admin: 11/25/16 18:15 Dose: 20 mg Clopidogrel Bisulfate (Plavix) 75 mg PO DAILY [facility] Last Admin: 11/26/16 10:18 Dose: 75 mg Docusate Sodium (Colace) 100 mg PO DAILY [facility] Last Admin: 11/26/16 10:18 Dose: 100 mg Furosemide (Lasix) 20 mg PO BID [facility] Last Admin: 11/26/16 10:25 Dose: Not Given Heparin Sodium (Porcine) (Heparin) 5,000 units SC Q12 [facility] PRN Reason: Protocol Last Admin: 11/26/16 10:27 Dose: Not Given Hydromorphone HCl (Dilaudid) 0.5 mg IVP Q4H PRN PRN Reason: Pain, severe (8-10) Last Admin: 11/26/16 07:40 Dose: 0.5 mg Sodium Chloride (Sodium Chloride 0.9%) 1,000 mls @ 75 mls/hr IV .[id number] [facility] Last Admin: 11/26/16 00:55 Dose: 75 mls/hr Ceftaroline Fosamil 400 mg/ (Sodium Chloride) 100 mls @ 100 mls/hr IVPB Q12 [facility] PRN Reason: Protocol Stop: 12/04/16 22:01 Last Admin: 11/25/16 21:52 Dose: 100 mls/hr Insulin Detemir (Levemir) 10 unit SC HS [facility] Last Admin: 11/25/16 21:53 Dose: 10 unit Insulin Human Regular (Humulin R Low) 0 units SC ACHS [facility] PRN Reason: Protocol Last Admin: 11/26/16 10:19 Dose: Not Given Metoprolol Tartrate (Lopressor) 25 mg PO BID [facility] Last Admin: 11/26/16 10:26 Dose: Not Given Pantoprazole Sodium (Protonix Inj) 40 mg IVP DAILY [facility] Last Admin: 11/26/16 10:17 Dose: 40 mg Physical Exam - Constitutional Appears: Non-toxic, No Acute Distress - Extremities Exam Additional comments: Left lower extremity focused exam: Vasc: DP and PT pulses noted. CFT < 3 seconds to digits x5. Skin temperature warm to cool from proximal to distal Derm: Ulceration noted to the left heel measuring approximately 4 cm by 4 cm by 0.4 cm with exposed bone. no abscess noted, no necrotic tissue noted, no drainage noted, edema noted to the maren-wound area. Sutures noted to the proximal and distal aspect of ulcer to left heel Ortho: Tenderness to palpation of the left heel Neuro: Gross sensation diminished - Neurological Exam Neurological exam: Alert, Oriented x3 - Psychiatric Exam Psychiatric exam: Normal Affect, Normal Mood Results - Vital Signs Recent Vital Signs: Last Vital Signs Temp 97.8 F 11/26/16 04:00 Pulse 78 11/26/16 04:00 Resp 18 11/26/16 04:00 BP 128/74 11/26/16 04:00 Pulse Ox 98 11/26/16 04:00 - Labs Result Diagrams: 11/26/16 05:45 11/26/16 05:45 Labs: Laboratory Results - last 24 hr 11/25/16 11/25/16 11/25/16 12:26 12:55 12:55 WBC RBC Hgb Hct MCV MCH MCHC RDW Plt Count MPV Gran % Lymph % (Auto) [place] % (Auto) Eos % (Auto) Baso % (Auto) Gran # Lymph # [place] # Eos # Baso # Sodium Potassium Chloride Carbon Dioxide Anion Gap BUN Creatinine Est GFR ( Amer) Est GFR (Non-Af Amer) POC Glucose (mg/dL) 344 H Random Glucose Hemoglobin A1c 8.1 H Calcium Phosphorus 3.6 Magnesium 2.0 Iron TIBC % Saturation Ferritin 33.1 Total Bilirubin AST ALT Alkaline Phosphatase Troponin I < 0.01 NT-Pro-B Natriuret Pep 1060 H Total Protein Albumin Globulin Albumin/Globulin Ratio Triglycerides 111 Cholesterol 201 H LDL Cholesterol Direct 103 HDL Cholesterol 54 Vitamin B12 282 Folate > 20.0 TSH 3rd Generation Urine Color Urine Appearance Urine pH Ur Specific [place] Urine Protein Urine Glucose (UA) Urine Ketones Urine Blood Urine Nitrate Urine Bilirubin Urine Urobilinogen Ur Leukocyte Esterase Urine RBC Urine WBC Ur Epithelial Cells 11/25/16 11/25/16 11/25/16 12:55 12:55 12:55 WBC RBC Hgb Hct MCV MCH MCHC RDW Plt Count MPV Gran % Lymph % (Auto) Catron % (Auto) Eos % (Auto) Baso % (Auto) Gran # Lymph # [place] # Eos # Baso # Sodium Potassium Chloride Carbon Dioxide Anion Gap BUN Creatinine Est GFR ( Amer) Est GFR (Non-Af Amer) POC Glucose (mg/dL) Random Glucose Hemoglobin A1c Calcium Phosphorus Magnesium Iron 78 TIBC 285 % Saturation 27 Ferritin Total Bilirubin AST ALT Alkaline Phosphatase Troponin I < 0.01 NT-Pro-B Natriuret Pep Total Protein Albumin Globulin Albumin/Globulin Ratio Triglycerides Cholesterol LDL Cholesterol Direct HDL Cholesterol Vitamin B12 Folate TSH 3rd Generation 3.86 Urine Color Urine Appearance Urine pH Ur Specific [place] Urine Protein Urine Glucose (UA) Urine Ketones Urine Blood Urine Nitrate Urine Bilirubin Urine Urobilinogen Ur Leukocyte Esterase Urine RBC Urine WBC Ur Epithelial Cells 11/25/16 11/25/16 11/25/16 16:10 17:20 21:18 WBC RBC Hgb Hct MCV MCH MCHC RDW Plt Count MPV Gran % Lymph % (Auto) Catron % (Auto) Eos % (Auto) Baso % (Auto) Gran # Lymph # Cat[place] # Eos # Baso # Sodium Potassium Chloride Carbon Dioxide Anion Gap BUN Creatinine Est GFR ( Amer) Est GFR (Non-Af Amer) POC Glucose (mg/dL) 304 H 170 H Random Glucose Hemoglobin A1c Calcium Phosphorus Magnesium Iron TIBC % Saturation Ferritin Total Bilirubin AST ALT Alkaline Phosphatase Troponin I NT-Pro-B Natriuret Pep Total Protein Albumin Globulin Albumin/Globulin Ratio Triglycerides Cholesterol LDL Cholesterol Direct HDL Cholesterol Vitamin B12 Folate TSH 3rd Generation Urine Color Yellow Urine Appearance Clear Urine pH 6.0 Ur Specific [place] 1.025 Urine Protein 100 H Urine Glucose (UA) 250 H Urine Ketones Negative Urine Blood Trace-intact H Urine Nitrate Negative Urine Bilirubin Negative Urine Urobilinogen 0.2 Ur Leukocyte Esterase Negative Urine RBC 1 - 3 Urine WBC 0 - 2 Ur Epithelial Cells 3 - 4 11/26/16 11/26/16 05:45 05:45 WBC 6.1 RBC 3.44 L Hgb 8.9 L Hct 27.5 L MCV 79.9 L MCH 25.9 MCHC 32.4 RDW 16.8 H Plt Count 283 MPV 9.2 Gran % 44.6 L Lymph % (Auto) 45.2 H Catron % (Auto) 6.4 H Eos % (Auto) 3.1 Baso % (Auto) 0.7 Gran # 2.72 Lymph # 2.8 Catron # 0.4 Eos # 0.2 Baso # 0.04 Sodium 142 Potassium 4.1 Chloride 108 H Carbon Dioxide 25 Anion Gap 13 BUN 47 H Creatinine 1.4 Est GFR ( Amer) 48 Est GFR (Non-Af Amer) 39 POC Glucose (mg/dL) Random Glucose 119 H Hemoglobin A1c Calcium 9.3 Phosphorus 3.3 Magnesium 1.8 Iron TIBC % Saturation Ferritin Total Bilirubin 0.5 AST 46 H ALT 53 Alkaline Phosphatase 580 H Troponin I NT-Pro-B Natriuret Pep Total Protein 7.2 Albumin 3.5 Globulin 3.7 Albumin/Globulin Ratio 0.9 L Triglycerides Cholesterol LDL Cholesterol Direct HDL Cholesterol Vitamin B12 Folate TSH 3rd Generation Urine Color Urine Appearance Urine pH Ur Specific [place] Urine Protein Urine Glucose (UA) Urine Ketones Urine Blood Urine Nitrate Urine Bilirubin Urine Urobilinogen Ur Leukocyte Esterase Urine RBC Urine WBC Ur Epithelial Cells Assessment & Plan - Assessment and Plan (Free Text) Assessment: 51 year old female with ulceration to left heel with exposed bone and osteomylitis Plan: patient examined and evaluated with attending, Dr. Brady chart, labs, vitals reviewed wound culture-pending left heel cleansed with normal sterile saline sutures removed from distal aspect of ulcer, proximal sutures left intact left heel dressed with 4x4 gauze, ABD, kerlix heel offloading shoe to LLE multipodus boots ordered, to be worn at all times in bed to offload heels b/l Stable for d/c to [facility] for longterm abx <Sheridan Brady - Last Filed: 11/29/16 14:47> Meds - Medications Medications: Current Medications Albuterol/Ipratropium (Duoneb 3 Mg/0.5 Mg (3 Ml) Ud) 3 ml IH [id number] PRN PRN Reason: Shortness of Breath Aspirin (Aspirin Chewable) 81 mg PO DAILY [facility] Last Admin: 11/29/16 09:46 Dose: 81 mg Atorvastatin Calcium (Lipitor) 20 mg PO DIN [facility] Last Admin: 11/28/16 17:49 Dose: 20 mg Clopidogrel Bisulfate (Plavix) 75 mg PO DAILY [facility] Last Admin: 11/29/16 09:46 Dose: 75 mg Docusate Sodium (Colace) 100 mg PO DAILY [facility] Last Admin: 11/29/16 09:45 Dose: 100 mg Furosemide (Lasix) 20 mg PO BID [facility] Last Admin: 11/29/16 09:42 Dose: Not Given Heparin Sodium (Porcine) (Heparin) 5,000 units SC Q12 [facility] PRN Reason: Protocol Last Admin: 11/28/16 21:28 Dose: Not Given Hydromorphone HCl (Dilaudid) 0.5 mg IVP Q4H PRN PRN Reason: Pain, severe (8-10) Last Admin: 11/29/16 14:41 Dose: 0.5 mg Sodium Chloride (Sodium Chloride 0.9%) 1,000 mls @ 75 mls/hr IV .[id number] [facility] Last Admin: 11/29/16 10:44 Dose: Not Given Piperacillin Sod/Tazobactam Sod (Zosyn 3.375 In Ns 100ml) 100 mls @ 200 mls/hr IVPB Q6 [facility] PRN Reason: Protocol Stop: 12/06/16 12:01 Last Admin: 11/29/16 13:40 Dose: Not Given Insulin Detemir (Levemir) 10 unit SC [facility] Last Admin: 11/28/16 22:39 Dose: Not Given Insulin Human Regular (Humulin R Low) 0 units SC [facility] PRN Reason: Protocol Last Admin: 11/29/16 13:40 Dose: Not Given Lorazepam (Ativan) 0.5 mg PO TID PRN; Protocol PRN Reason: Anxiety Last Admin: 11/29/16 09:46 Dose: 0.5 mg Metoprolol Tartrate (Lopressor) 25 mg PO BID [facility] Last Admin: 11/29/16 09:47 Dose: 25 mg Morphine Sulfate (Morphine Extended Release Tab) 30 mg PO Q12 [facility] Last Admin: 11/29/16 09:45 Dose: 30 mg Risperidone (Risperdal Oral Soln) 0.5 mg PO TID PRN; Protocol PRN Reason: agitation/psychosis Trazodone HCl (Desyrel) 50 mg PO [facility] Last Admin: 11/28/16 21:33 Dose: 50 mg Ziprasidone (Geodon Inj) 10 mg IM Q6 PRN; Protocol PRN Reason: Agitation Results - Vital Signs Recent Vital Signs: Last Vital Signs Temp 98.4 F 11/29/16 08:00 Pulse 72 11/29/16 09:47 Resp 18 11/29/16 08:00 BP 123/88 11/29/16 09:47 Pulse Ox 96 11/29/16 08:00 - Labs Result Diagrams: 11/29/16 06:00 11/28/16 06:10 Labs: Laboratory Results - last 24 hr 11/28/16 11/28/16 11/29/16 16:08 22:03 06:00 WBC 3.6 L D RBC 3.38 L Hgb 8.7 L Hct 27.0 L MCV 79.9 L MCH 25.7 MCHC 32.2 RDW 16.2 H Plt Count 90 L MPV 9.8 Gran % 41.9 L Lymph % (Auto) 48.3 H Catron % (Auto) 6.1 H Eos % (Auto) 3.4 Baso % (Auto) 0.3 Gran # 1.50 Lymph # 1.7 Catron # 0.2 Eos # 0.1 Baso # 0.01 POC Glucose (mg/dL) 226 H 208 H Attending/Attestation - Attestation I have personally seen and examined this patient.: Yes I have fully participated in the care of the patient.: Yes I have reviewed all pertinent clinical information: Yes
--- NOTE | 2016-11-26 10:59 | CP.PCM.PN ---
Subjective - Date & Time of Evaluation Date of Evaluation: 11/26/16 Time of Evaluation: 10:00 - Subjective Subjective: Patient is still complaining of occasional pain in the left foot, no fevers overnight. Objective - Vital Signs/Intake and Output Vital Signs (last 24 hours): Temp Pulse Resp BP Pulse Ox 97.8 F 78 18 128/74 98 11/26/16 04:00 11/26/16 04:00 11/26/16 04:00 11/26/16 04:00 11/26/16 04:00 Intake and Output: 11/26/16 11/26/16 06:59 18:59 Intake Total 310 Output Total 1200 Balance -890 - Medications Medications: Current Medications Albuterol/Ipratropium (Duoneb 3 Mg/0.5 Mg (3 Ml) Ud) 3 ml IH [id number] PRN PRN Reason: Shortness of Breath Aspirin (Aspirin Chewable) 81 mg PO DAILY [facility] Atorvastatin Calcium (Lipitor) 20 mg PO DIN [facility] Last Admin: 11/25/16 18:15 Dose: 20 mg Clopidogrel Bisulfate (Plavix) 75 mg PO DAILY [facility] Last Admin: 11/25/16 12:36 Dose: Not Given Docusate Sodium (Colace) 100 mg PO DAILY [facility] Furosemide (Lasix) 20 mg PO BID [facility] Last Admin: 11/25/16 18:15 Dose: 20 mg Heparin Sodium (Porcine) (Heparin) 5,000 units SC Q12 [facility] PRN Reason: Protocol Last Admin: 11/26/16 00:19 Dose: Not Given Hydromorphone HCl (Dilaudid) 0.5 mg IVP Q4H PRN PRN Reason: Pain, severe (8-10) Last Admin: 11/26/16 07:40 Dose: 0.5 mg Sodium Chloride (Sodium Chloride 0.9%) 1,000 mls @ 75 mls/hr IV .[id number] [facility] Last Admin: 11/26/16 00:55 Dose: 75 mls/hr Ceftaroline Fosamil 400 mg/ (Sodium Chloride) 100 mls @ 100 mls/hr IVPB Q12 [facility] PRN Reason: Protocol Stop: 12/04/16 22:01 Last Admin: 11/25/16 21:52 Dose: 100 mls/hr Insulin Detemir (Levemir) 10 unit SC [facility] Last Admin: 11/25/16 21:53 Dose: 10 unit Insulin Human Regular (Humulin R Low) 0 units SC ACHS [facility] PRN Reason: Protocol Last Admin: 11/26/16 00:14 Dose: Not Given Metoprolol Tartrate (Lopressor) 25 mg PO BID [facility] Last Admin: 11/25/16 18:14 Dose: 25 mg Pantoprazole Sodium (Protonix Inj) 40 mg IVP DAILY [facility] - Labs Labs: 11/26/16 05:45 11/26/16 05:45 PT 11.6 Seconds (9.9-11.8) 11/25/16 03:00 INR 1.07 (0.93-1.08) 11/25/16 03:00 APTT 24.2 Seconds (23.7-30.8) 11/25/16 03:00 - Constitutional Appears: Non-toxic, No Acute Distress - Head Exam Head Exam: NORMAL INSPECTION - Neck Exam Neck Exam: absent: Meningismus - Respiratory Exam Respiratory Exam: Decreased Breath Sounds - Cardiovascular Exam Cardiovascular Exam: +S1, +S2 - GI/Abdominal Exam GI & Abdominal Exam: Soft. absent: Tenderness - Extremities Exam Additional comments: left foot with dry dressings in place Assessment and Plan - Assessment and Plan (Free Text) Plan: Assessment Probable left foot osteomyelitis (was on antibiotics prior to admission) chest pain rule out acute coronary syndrome S/P left PICC line placement dyslipidemia DM HTN history of cholecystitis chronic renal failure history of uterine cancer CAD history of depression history of DVT Plan Continue Teflaro (day 2) and follow up Podiatry evaluation and old medical records to see culture results from the bone (patient apparently had a sample of the bone from the heel removed) will follow clinically
--- NOTE | 2016-11-26 15:34 | RAD ---
HISTORY: PICC line placement COMPARISON: No prior. FINDINGS: LUNGS: No active pulmonary disease. PLEURA: No significant pleural effusion identified, no pneumothorax apparent. CARDIOVASCULAR: Normal. OSSEOUS STRUCTURES: No significant abnormalities. VISUALIZED UPPER ABDOMEN: Normal. OTHER FINDINGS: There is a left-sided PICC line which terminates in the SVC IMPRESSION: No active disease.
[2016-11-26] MEDS: HYDROmorphone 1 mg/ml ISec IVP PRN ×2 (17:51→21:28)
--- NOTE | 2016-11-26 18:47 | CP.PCM.PN ---
<TRES ARTHUR - Last Filed: 11/26/16 18:31> Subjective - Date & Time of Evaluation Date of Evaluation: 11/26/16 Time of Evaluation: 12:15 - Subjective Subjective: Medicine Progress Note: Pt seen and assessed at bedside. Pt had complaints of her pain not being controlled with current pain regimen. Left heel pain has not improved, per pt. Pt denies headache, fever, changes in vision, SOB, or nausea/vomiting. Objective - Vital Signs/Intake and Output Vital Signs (last 24 hours): Temp Pulse Resp BP Pulse Ox 97.9 F 80 20 141/81 98 11/26/16 16:00 11/26/16 16:00 11/26/16 16:00 11/26/16 16:00 11/26/16 16:00 Intake and Output: 11/26/16 11/26/16 06:59 18:59 Intake Total 310 Output Total 1200 Balance -890 - Medications Medications: Current Medications Albuterol/Ipratropium (Duoneb 3 Mg/0.5 Mg (3 Ml) Ud) 3 ml IH [id number] PRN PRN Reason: Shortness of Breath Aspirin (Aspirin Chewable) 81 mg PO DAILY [facility] Last Admin: 11/26/16 10:18 Dose: 81 mg Atorvastatin Calcium (Lipitor) 20 mg PO DIN [facility] Last Admin: 11/25/16 18:15 Dose: 20 mg Clopidogrel Bisulfate (Plavix) 75 mg PO DAILY [facility] Last Admin: 11/26/16 10:18 Dose: 75 mg Docusate Sodium (Colace) 100 mg PO DAILY [facility] Last Admin: 11/26/16 10:18 Dose: 100 mg Furosemide (Lasix) 20 mg PO BID [facility] Last Admin: 11/26/16 10:25 Dose: Not Given Heparin Sodium (Porcine) (Heparin) 5,000 units SC Q12 [facility] PRN Reason: Protocol Last Admin: 11/26/16 10:27 Dose: Not Given Hydromorphone HCl (Dilaudid) 1 mg IVP Q4H PRN PRN Reason: Pain, severe (8-10) Last Admin: 11/26/16 17:51 Dose: 1 mg Sodium Chloride (Sodium Chloride 0.9%) 1,000 mls @ 75 mls/hr IV .[id number] [facility] Last Admin: 11/26/16 00:55 Dose: 75 mls/hr Ceftaroline Fosamil 400 mg/ (Sodium Chloride) 100 mls @ 100 mls/hr IVPB Q12 [facility] PRN Reason: Protocol Stop: 12/04/16 22:01 Last Admin: 11/26/16 10:45 Dose: Not Given Insulin Detemir (Levemir) 10 unit SC HS [facility] Last Admin: 11/25/16 21:53 Dose: 10 unit Insulin Human Regular (Humulin R Low) 0 units SC ACHS [facility] PRN Reason: Protocol Last Admin: 11/26/16 13:14 Dose: Not Given Metoprolol Tartrate (Lopressor) 25 mg PO BID [facility] Last Admin: 11/26/16 10:26 Dose: Not Given Pantoprazole Sodium (Protonix Inj) 40 mg IVP DAILY [facility] Last Admin: 11/26/16 10:17 Dose: 40 mg - Labs Labs: 11/26/16 05:45 11/26/16 05:45 PT 11.6 Seconds (9.9-11.8) 11/25/16 03:00 INR 1.07 (0.93-1.08) 11/25/16 03:00 APTT 24.2 Seconds (23.7-30.8) 11/25/16 03:00 - Constitutional Appears: No Acute Distress - Head Exam Head Exam: ATRAUMATIC, NORMAL INSPECTION - Eye Exam Eye Exam: EOMI, Normal appearance - ENT Exam ENT Exam: Mucous Membranes Moist, Normal Exam - Respiratory Exam Respiratory Exam: Clear to Ausculation Bilateral, NORMAL BREATHING PATTERN. absent: Rales, Rhonchi, Wheezes - Cardiovascular Exam Cardiovascular Exam: REGULAR RHYTHM, +S1, +S2. absent: Murmur - GI/Abdominal Exam GI & Abdominal Exam: absent: Distended, Tenderness - Extremities Exam Extremities Exam: absent: Calf Tenderness, Pedal Edema - Neurological Exam Neurological Exam: Alert, Awake - Psychiatric Exam Psychiatric exam: Agitated - Skin Skin Exam: Dry, Intact, Normal Color, Warm Additional comments: Wound dressing on L heel Assessment and Plan - Assessment and Plan (Free Text) Assessment: 51 yo female with a history of MT, hyperlipidemia, diabetes, HTN, CKD, asthma, DVT, uterine cancer, lung cancer and thromboembolic disease S/P left heel osteo debridement presents with chest pain and left heel pain. 1. S/P Left heel ulcer debridement/osteomyelitis -sutures removed, wound dressing reapplied, heel offloading shoe to LLE, multipodus boots to be worn at all times in bed and patient stable to [facility], per podiatry -continue Teflaro, per ID -blood and wound cultures negative after 24 hours -Chest Xray confirmed PICC line terminating in SVC, dressing applied to relieve pain -reviewed [facility] records which revealed no bone culture or imaging of LLE -PT/OT will see once boot is on patient -case assistant working on fpc placement; only care facility that has accepted patient thus far has been refused by patient; trying to reach family members for home care assessment -pain controlled with increase in dilaudid to 1mg IV q4 2. Atypical chest pain/ACS rule out -cardiology doubts MT, DC telemetry -three troponins negative -awaiting TSH and lipid panel -continue aspirin, lipitor, plavix, lasix, lopressor 3. Elevated d-dimer/history of cancer and thromboembolic disease -V/Q scan negative -LE venous doppler showed no DVT's 4. Anemia -Hb/Hct are 8.9/27.5 -Iron studies within normal limits -awaiting B12, Folate -continuing to monitor with daily CBC's 5. Asthma -Duoneb q4 PRN 6. GI/DVT prophylaxis -protonix/heparin Patient seen and case discussed with attending physician, Dr. Poe. <Matthew Poe - Last Filed: 11/27/16 07:22> Objective - Vital Signs/Intake and Output Vital Signs (last 24 hours): Temp Pulse Resp BP Pulse Ox 97.9 F 80 20 156/94 H 98 11/26/16 16:00 11/26/16 19:27 11/26/16 16:00 11/26/16 19:27 11/26/16 16:00 Intake and Output: 11/27/16 11/27/16 06:59 18:59 Intake Total 360 Balance 360 - Medications Medications: Current Medications Albuterol/Ipratropium (Duoneb 3 Mg/0.5 Mg (3 Ml) Ud) 3 ml IH [id number] PRN PRN Reason: Shortness of Breath Aspirin (Aspirin Chewable) 81 mg PO DAILY [facility] Last Admin: 11/26/16 10:18 Dose: 81 mg Atorvastatin Calcium (Lipitor) 20 mg PO DIN [facility] Last Admin: 11/26/16 21:25 Dose: Not Given Clopidogrel Bisulfate (Plavix) 75 mg PO DAILY [facility] Last Admin: 11/26/16 10:18 Dose: 75 mg Docusate Sodium (Colace) 100 mg PO DAILY [facility] Last Admin: 11/26/16 10:18 Dose: 100 mg Furosemide (Lasix) 20 mg PO BID [facility] Last Admin: 11/26/16 19:27 Dose: 20 mg Heparin Sodium (Porcine) (Heparin) 5,000 units SC Q12 [facility] PRN Reason: Protocol Last Admin: 11/27/16 00:06 Dose: Not Given Hydromorphone HCl (Dilaudid) 1 mg IVP Q4H PRN PRN Reason: Pain, severe (8-10) Last Admin: 11/27/16 04:31 Dose: 1 mg Sodium Chloride (Sodium Chloride 0.9%) 1,000 mls @ 75 mls/hr IV .[id number] [facility] Last Admin: 11/26/16 00:55 Dose: 75 mls/hr Ceftaroline Fosamil 400 mg/ (Sodium Chloride) 100 mls @ 100 mls/hr IVPB Q12 [facility] PRN Reason: Protocol Stop: 12/04/16 22:01 Last Admin: 11/27/16 00:03 Dose: Not Given Insulin Detemir (Levemir) 10 unit SC HS [facility] Last Admin: 11/27/16 00:05 Dose: Not Given Insulin Human Regular (Humulin R Low) 0 units SC ACHS [facility] PRN Reason: Protocol Last Admin: 11/27/16 00:05 Dose: Not Given Metoprolol Tartrate (Lopressor) 25 mg PO BID [facility] Last Admin: 11/26/16 19:27 Dose: 25 mg Pantoprazole Sodium (Protonix Inj) 40 mg IVP DAILY [facility] Last Admin: 11/26/16 10:17 Dose: 40 mg - Labs Labs: 11/26/16 05:45 11/26/16 05:45 PT 11.6 Seconds (9.9-11.8) 11/25/16 03:00 INR 1.07 (0.93-1.08) 11/25/16 03:00 APTT 24.2 Seconds (23.7-30.8) 11/25/16 03:00 Attending/Attestation - Attestation I have personally seen and examined this patient.: Yes I have fully participated in the care of the patient.: Yes I have reviewed all pertinent clinical information, including history, physical exam and plan: Yes Notes (Text): 11/26/16 51 year old female with past medical history of MT, diabetes, hypertension, ? history of DVT, ?history of uterine and lung cancer (patient is poor historian) , chronic left heel ulcer and ?OM who was recently discharged to [facility] on iv antibiotics who presented with complaint of chest pain. Serial cardiac enzymes were negative and ACS was ruled out. Cardiology evaluation was appreciated. Continue with aspirin, plavix, statin and lopressor. Ddimer was elevated however VQ scan and LE doppler is negative. Patient is on SC heparin. ID and podiatry evaluation was appreciated for chronic left heel ulcer. Prior recent medical records from [facility] were reviewed. Continue with iv antibiotics as per ID and wound care as per podiatry. Picc line will need to be assessed by vascular nurse and cxr. Patient also has CKD and anemia (possibly from anemia of chronic disease) which we will continue to monitor. Patient reports she will follow up with her pmd/oncologist for history of lung and uterine cancer. Case was discussed with case assistant / director of social work regarding d/c planning to [facility]. Matthew Poe MD Hospitalist.
[2016-11-27] MEDS: Insulin Reg-LOW-Coverage SC SCH ×5 (00:05→21:12)
[2016-11-27] MEDS: Insulin Detemir 100 units/ml Vial (Levemir) SC SCH ×2 (00:05→21:11)
[2016-11-27] MEDS: HYDROmorphone 1 mg/ml ISec IVP PRN ×4 (00:59→12:59)
[2016-11-27 08:29] LABS: ADD MANUAL DIFF? NO
[2016-11-27 08:33] LABS: BASO # 0.05 K/mm3 (0.0-2.0); BASO % 0.8 % (0.0-3.0); EOS # 0.2 (0.0-0.7); EOS % 3.1 % (1.5-5.0); GRAN # 3.24 (1.4-6.5); GRAN % 50.2 % (50.0-68.0); HEMATOCRIT 28.8 % (36.0-48.0); LYMPH # 2.4 (1.2-3.4); LYMPH % 37.7 % (22.0-35.0); MEAN CELL VOLUME 79.8 fL (80.0-105.0); MEAN CORPUSCULAR HEMOGLOBIN 26.3 pg (25.0-35.0); MEAN PLATELET VOLUME 8.8 fl (7.0-11.0); MONO # 0.5 (0.1-0.6); MONO % 8.2 % (1.0-6.0); PLATELET COUNT 274 10^3/uL (120.0-450.0); RED CELL DISTRIBUTION WIDTH 16.2 % (11.5-14.5); WHITE BLOOD COUNT 6.5 10^3/ul (4.5-11.0)
[2016-11-27 08:41] LABS: BILIRUBIN,TOTAL 0.6 mg/dL (0.2-1.3); CALCIUM 9.2 mg/dL (8.4-10.5); POTASSIUM 3.9 mmol/L (3.6-5.0); TOTAL PROTEIN 7.4 g/dL (5.8-8.3)
--- NOTE | 2016-11-27 10:05 | CP.PCM.PN ---
Subjective - Date & Time of Evaluation Date of Evaluation: 11/27/16 Time of Evaluation: 09:15 - Subjective Subjective: C/o pain in back, No chest pain Objective - Vital Signs/Intake and Output Vital Signs (last 24 hours): Temp Pulse Resp BP Pulse Ox 97.8 F 72 20 144/75 97 11/27/16 07:39 11/27/16 07:39 11/27/16 07:39 11/27/16 07:39 11/27/16 07:39 Intake and Output: 11/27/16 11/27/16 06:59 18:59 Intake Total 360 Balance 360 - Medications Medications: Current Medications Albuterol/Ipratropium (Duoneb 3 Mg/0.5 Mg (3 Ml) Ud) 3 ml IH [id number] PRN PRN Reason: Shortness of Breath Aspirin (Aspirin Chewable) 81 mg PO DAILY [facility] Last Admin: 11/26/16 10:18 Dose: 81 mg Atorvastatin Calcium (Lipitor) 20 mg PO DIN [facility] Last Admin: 11/26/16 21:25 Dose: Not Given Clopidogrel Bisulfate (Plavix) 75 mg PO DAILY [facility] Last Admin: 11/26/16 10:18 Dose: 75 mg Docusate Sodium (Colace) 100 mg PO DAILY [facility] Last Admin: 11/26/16 10:18 Dose: 100 mg Furosemide (Lasix) 20 mg PO BID [facility] Last Admin: 11/26/16 19:27 Dose: 20 mg Heparin Sodium (Porcine) (Heparin) 5,000 units SC Q12 [facility] PRN Reason: Protocol Last Admin: 11/27/16 00:06 Dose: Not Given Hydromorphone HCl (Dilaudid) 1 mg IVP Q4H PRN PRN Reason: Pain, severe (8-10) Last Admin: 11/27/16 07:56 Dose: 1 mg Sodium Chloride (Sodium Chloride 0.9%) 1,000 mls @ 75 mls/hr IV .[id number] [facility] Last Admin: 11/26/16 00:55 Dose: 75 mls/hr Ceftaroline Fosamil 400 mg/ (Sodium Chloride) 100 mls @ 100 mls/hr IVPB Q12 [facility] PRN Reason: Protocol Stop: 12/04/16 22:01 Last Admin: 11/27/16 00:03 Dose: Not Given Insulin Detemir (Levemir) 10 unit SC [facility] Last Admin: 11/27/16 00:05 Dose: Not Given Insulin Human Regular (Humulin R Low) [address] [facility] PRN Reason: Protocol Last Admin: 11/27/16 00:05 Dose: Not Given Metoprolol Tartrate (Lopressor) 25 mg PO BID [facility] Last Admin: 11/26/16 19:27 Dose: 25 mg Morphine Sulfate (Morphine Extended Release Tab) 30 mg PO Q12 [facility] Pantoprazole Sodium (Protonix Inj) 40 mg IVP DAILY [facility] Last Admin: 11/26/16 10:17 Dose: 40 mg - Labs Labs: 11/27/16 08:20 11/27/16 08:20 PT 11.6 Seconds (9.9-11.8) 11/25/16 03:00 INR 1.07 (0.93-1.08) 11/25/16 03:00 APTT 24.2 Seconds (23.7-30.8) 11/25/16 03:00 - Constitutional Appears: Non-toxic - Head Exam Head Exam: ATRAUMATIC - Eye Exam Eye Exam: EOMI - ENT Exam ENT Exam: Mucous Membranes Moist - Neck Exam Neck Exam: Full ROM - Respiratory Exam Respiratory Exam: Chest Wall Tenderness, Clear to Ausculation Bilateral Additional comments: On left side - Cardiovascular Exam Cardiovascular Exam: REGULAR RHYTHM Assessment and Plan - Assessment and Plan (Free Text) Assessment: Non ischemic chest pain with tenderness CAD Hx of two Stent in past no evidence of ACS ... during this admission Bipolar diorder Ca Ut Back olivia, Lung ca non healinf left foot ulcer Plan: Aggressive medical treatment Adequate analgesia CVs status ok no further cardiac w.u is waerrented.
[2016-11-27] MEDS: Morphine 30 mg SR Tab PO SCH ×2 (10:07→21:00)
[2016-11-27] MEDS ORDERED: Lidocaine 2% Inj (20ml) ONE (10:27)
--- NOTE | 2016-11-27 11:02 | CP.PCM.PN ---
<Andree Mcdonough - Last Filed: 11/27/16 10:57> Subjective - Date & Time of Evaluation Date of Evaluation: 11/27/16 Time of Evaluation: 10:58 - Subjective Subjective: 51 year old female was seen at bedside with attending, Dr. Brady regarding left heel ulcer. She states that she has pain to her left heel. States that she does use her left foot for transferring. She denies any n/v/f/c/sob/cp. Objective - Vital Signs/Intake and Output Vital Signs (last 24 hours): Temp Pulse Resp BP Pulse Ox 97.8 F 72 20 145/75 97 11/27/16 07:39 11/27/16 10:08 11/27/16 07:39 11/27/16 10:11 11/27/16 07:39 Intake and Output: 11/27/16 11/27/16 06:59 18:59 Intake Total 360 Balance 360 - Medications Medications: Current Medications Albuterol/Ipratropium (Duoneb 3 Mg/0.5 Mg (3 Ml) Ud) 3 ml IH [id number] PRN PRN Reason: Shortness of Breath Aspirin (Aspirin Chewable) 81 mg PO DAILY [facility] Last Admin: 11/26/16 10:18 Dose: 81 mg Atorvastatin Calcium (Lipitor) 20 mg PO DIN [facility] Last Admin: 11/26/16 21:25 Dose: Not Given Clopidogrel Bisulfate (Plavix) 75 mg PO DAILY [facility] Last Admin: 11/26/16 10:18 Dose: 75 mg Docusate Sodium (Colace) 100 mg PO DAILY [facility] Last Admin: 11/27/16 10:26 Dose: Not Given Furosemide (Lasix) 20 mg PO BID [facility] Last Admin: 11/27/16 10:11 Dose: 20 mg Heparin Sodium (Porcine) (Heparin) 5,000 units SC Q12 [facility] PRN Reason: Protocol Last Admin: 11/27/16 00:06 Dose: Not Given Hydromorphone HCl (Dilaudid) 1 mg IVP Q4H PRN PRN Reason: Pain, severe (8-10) Last Admin: 11/27/16 07:56 Dose: 1 mg Sodium Chloride (Sodium Chloride 0.9%) 1,000 mls @ 75 mls/hr IV .[id number] [facility] Last Admin: 11/26/16 00:55 Dose: 75 mls/hr Ceftaroline Fosamil 400 mg/ (Sodium Chloride) 100 mls @ 100 mls/hr IVPB Q12 [facility] PRN Reason: Protocol Stop: 12/04/16 22:01 Last Admin: 11/27/16 10:11 Dose: 100 mls/hr Insulin Detemir (Levemir) 10 unit SC HS [facility] Last Admin: 11/27/16 00:05 Dose: Not Given Insulin Human Regular (Humulin R Low) 0 units SC ACHS [facility] PRN Reason: Protocol Last Admin: 11/27/16 08:10 Dose: Not Given Metoprolol Tartrate (Lopressor) 25 mg PO BID [facility] Last Admin: 11/27/16 10:08 Dose: 25 mg Morphine Sulfate (Morphine Extended Release Tab) 30 mg PO Q12 [facility] Last Admin: 11/27/16 10:07 Dose: 30 mg Pantoprazole Sodium (Protonix Inj) 40 mg IVP DAILY [facility] Last Admin: 11/27/16 10:05 Dose: 40 mg - Labs Labs: 11/27/16 08:20 11/27/16 08:20 PT 11.6 Seconds (9.9-11.8) 11/25/16 03:00 INR 1.07 (0.93-1.08) 11/25/16 03:00 APTT 24.2 Seconds (23.7-30.8) 11/25/16 03:00 - Constitutional Appears: No Acute Distress, Chronically Ill - Extremities Exam Additional comments: Left lower extremity focused exam: Vasc: DP and PT pulses noted. CFT < 3 seconds to digits x5. Skin temperature warm to cool from proximal to distal Derm: Ulceration noted to the left heel measuring approximately 4 cm by 4 cm by 0.4 cm with exposed bone, with small pieces of bone coming out of the wound. no abscess noted, no necrotic tissue noted, scant amount of sanginous drainage noted, edema noted to the maren-wound area. Sutures noted to the proximal and distal aspect of ulcer to left heel Ortho: Tenderness to palpation of the left heel Neuro: Gross sensation diminished - Neurological Exam Neurological Exam: Alert, Awake - Psychiatric Exam Psychiatric exam: Normal Affect, Normal Mood Assessment and Plan - Assessment and Plan (Free Text) Assessment: 51 year old female with ulceration to left heel with exposed bone and osteomylitis Plan: patient examined and evaluated with attending, Dr. Brady chart, labs, vitals reviewed wound culture-pending continue iv abx per ID left heel cleansed with normal sterile saline left heel dressed with vaseline gauze dressing,4x4 gauze, ABD, kerlix heel offloading shoe to LLE while patient transfering multipodus boots ordered, to be worn at all times in bed to offload heels b/l Stable for d/c to [facility] for detention abx <Sheridan Brady - Last Filed: 11/29/16 14:53> Objective - Vital Signs/Intake and Output Vital Signs (last 24 hours): Temp Pulse Resp BP Pulse Ox 98.4 F 72 18 123/88 96 11/29/16 08:00 11/29/16 09:47 11/29/16 08:00 11/29/16 09:47 11/29/16 08:00 Intake and Output: 11/29/16 11/29/16 06:59 18:59 Intake Total 240 Output Total 0 Balance 240 - Medications Medications: Current Medications Albuterol/Ipratropium (Duoneb 3 Mg/0.5 Mg (3 Ml) Ud) 3 ml IH [id number] PRN PRN Reason: Shortness of Breath Aspirin (Aspirin Chewable) 81 mg PO DAILY [facility] Last Admin: 11/29/16 09:46 Dose: 81 mg Atorvastatin Calcium (Lipitor) 20 mg PO DIN [facility] Last Admin: 11/28/16 17:49 Dose: 20 mg Clopidogrel Bisulfate (Plavix) 75 mg PO DAILY [facility] Last Admin: 11/29/16 09:46 Dose: 75 mg Docusate Sodium (Colace) 100 mg PO DAILY [facility] Last Admin: 11/29/16 09:45 Dose: 100 mg Furosemide (Lasix) 20 mg PO BID [facility] Last Admin: 11/29/16 09:42 Dose: Not Given Heparin Sodium (Porcine) (Heparin) 5,000 units SC Q12 [facility] PRN Reason: Protocol Last Admin: 11/28/16 21:28 Dose: Not Given Hydromorphone HCl (Dilaudid) 0.5 mg IVP Q4H PRN PRN Reason: Pain, severe (8-10) Last Admin: 11/29/16 14:41 Dose: 0.5 mg Sodium Chloride (Sodium Chloride 0.9%) 1,000 mls @ 75 mls/hr IV .[id number] [facility] Last Admin: 11/29/16 10:44 Dose: Not Given Piperacillin Sod/Tazobactam Sod (Zosyn 3.375 In Ns 100ml) 100 mls @ 200 mls/hr IVPB Q6 [facility] PRN Reason: Protocol Stop: 12/06/16 12:01 Last Admin: 11/29/16 13:40 Dose: Not Given Insulin Detemir (Levemir) 10 unit SC [facility] Last Admin: 11/28/16 22:39 Dose: Not Given Insulin Human Regular (Humulin R Low) 0 units SC ACHS [facility] PRN Reason: Protocol Last Admin: 11/29/16 13:40 Dose: Not Given Lorazepam (Ativan) 0.5 mg PO TID PRN; Protocol PRN Reason: Anxiety Last Admin: 11/29/16 09:46 Dose: 0.5 mg Metoprolol Tartrate (Lopressor) 25 mg PO BID [facility] Last Admin: 11/29/16 09:47 Dose: 25 mg Morphine Sulfate (Morphine Extended Release Tab) 30 mg PO Q12 [facility] Last Admin: 11/29/16 09:45 Dose: 30 mg Risperidone (Risperdal Oral Soln) 0.5 mg PO TID PRN; Protocol PRN Reason: agitation/psychosis Trazodone HCl (Desyrel) 50 mg PO [facility] Last Admin: 11/28/16 21:33 Dose: 50 mg Ziprasidone (Geodon Inj) 10 mg IM Q6 PRN; Protocol PRN Reason: Agitation - Labs Labs: 11/29/16 06:00 11/28/16 06:10 PT 11.6 Seconds (9.9-11.8) 11/25/16 03:00 INR 1.07 (0.93-1.08) 11/25/16 03:00 APTT 24.2 Seconds (23.7-30.8) 11/25/16 03:00 Attending/Attestation - Attestation I have personally seen and examined this patient.: Yes I have fully participated in the care of the patient.: Yes I have reviewed all pertinent clinical information, including history, physical exam and plan: Yes
--- NOTE | 2016-11-27 11:55 | CP.PCM.PN ---
Subjective - Date & Time of Evaluation Date of Evaluation: 11/27/16 Time of Evaluation: 11:20 - Subjective Subjective: Comfortable, not in distress, afebrile, still with occasional pain in the foot. Objective - Vital Signs/Intake and Output Vital Signs (last 24 hours): Temp Pulse Resp BP Pulse Ox 97.8 F 72 20 144/75 97 11/27/16 07:39 11/27/16 07:39 11/27/16 07:39 11/27/16 07:39 11/27/16 07:39 Intake and Output: 11/27/16 11/27/16 06:59 18:59 Intake Total 360 Balance 360 - Medications Medications: Current Medications Albuterol/Ipratropium (Duoneb 3 Mg/0.5 Mg (3 Ml) Ud) 3 ml IH [id number] PRN PRN Reason: Shortness of Breath Aspirin (Aspirin Chewable) 81 mg PO DAILY [facility] Last Admin: 11/26/16 10:18 Dose: 81 mg Atorvastatin Calcium (Lipitor) 20 mg PO DIN [facility] Last Admin: 11/26/16 21:25 Dose: Not Given Clopidogrel Bisulfate (Plavix) 75 mg PO DAILY [facility] Last Admin: 11/26/16 10:18 Dose: 75 mg Docusate Sodium (Colace) 100 mg PO DAILY [facility] Last Admin: 11/26/16 10:18 Dose: 100 mg Furosemide (Lasix) 20 mg PO BID [facility] Last Admin: 11/26/16 19:27 Dose: 20 mg Heparin Sodium (Porcine) (Heparin) 5,000 units SC Q12 [facility] PRN Reason: Protocol Last Admin: 11/27/16 00:06 Dose: Not Given Hydromorphone HCl (Dilaudid) 1 mg IVP Q4H PRN PRN Reason: Pain, severe (8-10) Last Admin: 11/27/16 07:56 Dose: 1 mg Sodium Chloride (Sodium Chloride 0.9%) 1,000 mls @ 75 mls/hr IV .[id number] [facility] Last Admin: 11/26/16 00:55 Dose: 75 mls/hr Ceftaroline Fosamil 400 mg/ (Sodium Chloride) 100 mls @ 100 mls/hr IVPB Q12 [facility] PRN Reason: Protocol Stop: 12/04/16 22:01 Last Admin: 11/27/16 00:03 Dose: Not Given Insulin Detemir (Levemir) 10 unit SC HS [facility] Last Admin: 11/27/16 00:05 Dose: Not Given Insulin Human Regular (Humulin R Low) 0 units SC [facility] PRN Reason: Protocol Last Admin: 11/27/16 00:05 Dose: Not Given Metoprolol Tartrate (Lopressor) 25 mg PO BID [facility] Last Admin: 11/26/16 19:27 Dose: 25 mg Pantoprazole Sodium (Protonix Inj) 40 mg IVP DAILY [facility] Last Admin: 11/26/16 10:17 Dose: 40 mg - Labs Labs: 11/27/16 08:20 11/27/16 08:20 PT 11.6 Seconds (9.9-11.8) 11/25/16 03:00 INR 1.07 (0.93-1.08) 11/25/16 03:00 APTT 24.2 Seconds (23.7-30.8) 11/25/16 03:00 - Constitutional Appears: Non-toxic, No Acute Distress - Head Exam Head Exam: NORMAL INSPECTION - Neck Exam Neck Exam: absent: Meningismus - Respiratory Exam Respiratory Exam: Decreased Breath Sounds - Cardiovascular Exam Cardiovascular Exam: +S1, +S2 - GI/Abdominal Exam GI & Abdominal Exam: Soft. absent: Tenderness Assessment and Plan - Assessment and Plan (Free Text) Plan: Assessment Probable left foot osteomyelitis (was on antibiotics prior to admission) chest pain rule out acute coronary syndrome S/P left PICC line placement dyslipidemia DM HTN history of cholecystitis chronic renal failure history of uterine cancer CAD history of depression history of DVT Plan Continue Teflaro (day 3) and follow up Podiatry evaluation and old medical records to see culture results from the bone (patient apparently had a sample of the bone from the heel removed) will follow clinically while the patient is in the hospital Discussed with Dr. Poe
--- NOTE | 2016-11-27 14:48 | VASCULAR ---
PROCEDURE: Ultrasound and fluoroscopically placed left upper extremity PICC line. HISTORY: Left heel osteomyelitis. Long-term IV antibiotics. Needs PICC line. PHYSICIAN(S): Celio Elder MD. TECHNIQUE: The relative risks and indications of the procedure were explained to the patient and consent obtained. The patient's malfunctioning left upper extremity PICC line was removed and hemostasis obtained. The patient was placed supine on the arteriogram table and the left arm prepped and draped in the usual sterile fashion. A tourniquet was applied to the left axilla. 1% Xylocaine was used to anesthetize the skin and soft tissues at the puncture site above the elbow. The left basilic vein was punctured under direct ultrasound guidance with a micropuncture set. A 0.018 guidewire was advanced centrally and used to measure the length to the SVC/RA junction. A 5 [place] single-lumen PICC line 44 cm long was advanced to the SVC/RA junction. The catheter was flushed and secured. The patient tolerated the procedure well. IMPRESSION: 1. Ultrasound and fluoroscopically placed left upper extremity PICC line. A 5 [place] single-lumen PICC line 44 cm long was advanced to the SVC/RA junction.
[2016-11-27] MEDS: Sodium Chloride 0.9% 1,000 ML IV SCH (17:40)
[2016-11-27] MEDS: HYDROmorphone 0.5 mg/0.5 ml ISec IVP PRN ×2 (17:42→22:00)
--- NOTE | 2016-11-27 18:31 | CP.PCM.PN ---
<TRES ARTHUR - Last Filed: 11/27/16 18:24> Subjective - Date & Time of Evaluation Date of Evaluation: 11/27/16 Time of Evaluation: 11:30 - Subjective Subjective: Medicine Progress Note: Pt seen and assessed at bedside. Pt continued to have complaints of her pain not being controlled with current pain regimen, which nursing confirmed. Left heel pain has not improved, per pt. Pt denies headache, fever, dizziness, SOB, edema, nausea/vomiting or diarrhea. Objective - Vital Signs/Intake and Output Vital Signs (last 24 hours): Temp Pulse Resp BP Pulse Ox 97.5 F L 104 H 20 110/67 97 11/27/16 16:00 11/27/16 17:39 11/27/16 16:00 11/27/16 17:39 11/27/16 07:39 - Medications Medications: Current Medications Albuterol/Ipratropium (Duoneb 3 Mg/0.5 Mg (3 Ml) Ud) 3 ml IH [id number] PRN PRN Reason: Shortness of Breath Aspirin (Aspirin Chewable) 81 mg PO DAILY [facility] Last Admin: 11/27/16 12:59 Dose: 81 mg Atorvastatin Calcium (Lipitor) 20 mg PO DIN [facility] Last Admin: 11/27/16 17:39 Dose: 20 mg Clopidogrel Bisulfate (Plavix) 75 mg PO DAILY [facility] Last Admin: 11/27/16 12:59 Dose: 75 mg Docusate Sodium (Colace) 100 mg PO DAILY [facility] Last Admin: 11/27/16 10:26 Dose: Not Given Furosemide (Lasix) 20 mg PO BID [facility] Last Admin: 11/27/16 10:11 Dose: 20 mg Heparin Sodium (Porcine) (Heparin) 5,000 units SC Q12 [facility] PRN Reason: Protocol Last Admin: 11/27/16 12:58 Dose: 5,000 units Hydromorphone HCl (Dilaudid) 0.5 mg IVP Q4H PRN PRN Reason: Pain, severe (8-10) Last Admin: 11/27/16 17:42 Dose: 0.5 mg Sodium Chloride (Sodium Chloride 0.9%) 1,000 mls @ 75 mls/hr IV .[id number] [facility] Last Admin: 11/27/16 17:40 Dose: Not Given Ceftaroline Fosamil 400 mg/ (Sodium Chloride) 100 mls @ 100 mls/hr IVPB Q12 [facility] PRN Reason: Protocol Stop: 12/04/16 22:01 Last Admin: 11/27/16 10:11 Dose: 100 mls/hr Insulin Detemir (Levemir) 10 unit SC HS [facility] Last Admin: 11/27/16 00:05 Dose: Not Given Insulin Human Regular (Humulin R Low) 0 units SC ACHS [facility] PRN Reason: Protocol Last Admin: 11/27/16 16:28 Dose: Not Given Metoprolol Tartrate (Lopressor) 25 mg PO BID [facility] Last Admin: 11/27/16 17:39 Dose: 25 mg Morphine Sulfate (Morphine Extended Release Tab) 30 mg PO Q12 [facility] Last Admin: 11/27/16 10:07 Dose: 30 mg Pantoprazole Sodium (Protonix Inj) 40 mg IVP DAILY [facility] Last Admin: 11/27/16 10:05 Dose: 40 mg - Labs Labs: PT 11.6 Seconds (9.9-11.8) 11/25/16 03:00 INR 1.07 (0.93-1.08) 11/25/16 03:00 APTT 24.2 Seconds (23.7-30.8) 11/25/16 03:00 - Constitutional Appears: No Acute Distress - Head Exam Head Exam: NORMAL INSPECTION, NORMOCEPHALIC - ENT Exam ENT Exam: Mucous Membranes Moist, Normal Exam - Neck Exam Neck Exam: Full ROM - Respiratory Exam Respiratory Exam: Clear to Ausculation Bilateral, NORMAL BREATHING PATTERN. absent: Rales, Rhonchi, Wheezes - Cardiovascular Exam Cardiovascular Exam: REGULAR RHYTHM, +S1, +S2. absent: Murmur - GI/Abdominal Exam GI & Abdominal Exam: Normal Bowel Sounds. absent: Distended, Tenderness - Extremities Exam Extremities Exam: absent: Calf Tenderness, Tenderness - Neurological Exam Neurological Exam: Alert, Awake - Psychiatric Exam Psychiatric exam: Normal Affect, Normal Mood - Skin Skin Exam: Dry, Intact, Normal Color, Warm Assessment and Plan - Assessment and Plan (Free Text) Assessment: 51 yo female with a history of HI, hyperlipidemia, diabetes, HTN, CKD, asthma, DVT, uterine cancer, lung cancer and thromboembolic disease S/P left heel osteo debridement presents with chest pain and left heel pain. 1. 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 Atypical chest pain/ACS rule out -awaiting TSH and lipid panel -continue aspirin, lipitor, plavix, lasix, lopressor -three troponins negative 3. Elevated d-dimer/history of cancer and thromboembolic disease -V/Q scan negative -LE venous doppler showed no DVT's 4. Anemia -Hb/Hct improving at 9.5/28.8 -Iron studies within normal limits -awaiting B12, Folate -continuing to monitor with daily CBC's 5. Asthma -Duoneb q4 PRN 6. GI/DVT prophylaxis -protonix/heparin Patient seen and case discussed with attending physician, Dr. Poe. <Matthew Poe - Last Filed: 11/28/16 07:32> Objective - Vital Signs/Intake and Output Vital Signs (last 24 hours): Temp Pulse Resp BP Pulse Ox 97.5 F L 104 H 20 131/70 97 11/27/16 16:00 11/27/16 17:39 11/27/16 16:00 11/27/16 18:26 11/27/16 07:39 Intake and Output: 11/28/16 11/28/16 06:59 18:59 Intake Total 420 Balance 420 - Medications Medications: Current Medications Albuterol/Ipratropium (Duoneb 3 Mg/0.5 Mg (3 Ml) Ud) 3 ml IH [id number] PRN PRN Reason: Shortness of Breath Aspirin (Aspirin Chewable) 81 mg PO DAILY [facility] Last Admin: 11/27/16 12:59 Dose: 81 mg Atorvastatin Calcium (Lipitor) 20 mg PO DIN [facility] Last Admin: 11/27/16 17:39 Dose: 20 mg Clopidogrel Bisulfate (Plavix) 75 mg PO DAILY [facility] Last Admin: 11/27/16 12:59 Dose: 75 mg Docusate Sodium (Colace) 100 mg PO DAILY [facility] Last Admin: 11/27/16 10:26 Dose: Not Given Furosemide (Lasix) 20 mg PO BID [facility] Last Admin: 11/27/16 18:26 Dose: Not Given Heparin Sodium (Porcine) (Heparin) 5,000 units SC Q12 [facility] PRN Reason: Protocol Last Admin: 11/27/16 23:49 Dose: Not Given Hydromorphone HCl (Dilaudid) 0.5 mg IVP Q4H PRN PRN Reason: Pain, severe (8-10) Last Admin: 11/28/16 06:11 Dose: 0.5 mg Sodium Chloride (Sodium Chloride 0.9%) 1,000 mls @ 75 mls/hr IV .[id number] [facility] Last Admin: 11/27/16 17:40 Dose: Not Given Ceftaroline Fosamil 400 mg/ (Sodium Chloride) 100 mls @ 100 mls/hr IVPB Q12 [facility] PRN Reason: Protocol Stop: 12/04/16 22:01 Last Admin: 11/27/16 21:00 Dose: 100 mls/hr Insulin Detemir (Levemir) 10 unit SC HS [facility] Last Admin: 11/27/16 21:11 Dose: 10 unit Insulin Human Regular (Humulin R Low) 0 units SC ACHS [facility] PRN Reason: Protocol Last Admin: 11/27/16 21:12 Dose: Not Given Metoprolol Tartrate (Lopressor) 25 mg PO BID [facility] Last Admin: 11/27/16 17:39 Dose: 25 mg Morphine Sulfate (Morphine Extended Release Tab) 30 mg PO Q12 [facility] Last Admin: 11/27/16 21:00 Dose: 30 mg Pantoprazole Sodium (Protonix Inj) 40 mg IVP DAILY [facility] - Labs Labs: 11/28/16 06:10 11/28/16 06:10 PT 11.6 Seconds (9.9-11.8) 11/25/16 03:00 INR 1.07 (0.93-1.08) 11/25/16 03:00 APTT 24.2 Seconds (23.7-30.8) 11/25/16 03:00 Attending/Attestation - Attestation I have personally seen and examined this patient.: Yes I have fully participated in the care of the patient.: Yes I have reviewed all pertinent clinical information, including history, physical exam and plan: Yes Notes (Text): 11/27/16 51 year old female with past medical history of HI, diabetes, hypertension, ? history of DVT, ?history of uterine and lung cancer (patient is poor historian) , chronic left heel ulcer and ?OM who was recently discharged to [place] on iv antibiotics who presented with complaint of chest pain. Serial cardiac enzymes were negative and ACS was ruled out. Cardiology is following and she is on aspirin, plavix, statin and lopressor. Ddimer was elevated however VQ scan and LE doppler is negative. Continue with iv antibiotics as per ID and wound care as per podiatry for chronic left heel ulcer. Prior recent medical records from [facility] were reviewed. Wound culture is growing gram negative rods and Staph Aureus. She is on levemir and insulin ss for diabetes. Patient also has CKD and anemia (possibly from anemia of chronic disease) which we will continue to monitor. Patient reports she will follow up with her pmd/oncologist for history of lung and uterine cancer. She complains of chronic pain. As per nurse she is refusing to eat at times and asking only for iv dilaudid every 4 hours. Morphine ER was added. Case was discussed with onsite case manager / nursing home social worker regarding d/c planning to [place]. Matthew Poe MD Hospitalist.
[2016-11-28] MEDS: HYDROmorphone 0.5 mg/0.5 ml ISec IVP PRN ×5 (02:00→20:29)
[2016-11-28] MEDS ORDERED: Pantoprazole 40 mg EC Tab PO SCH (06:00)
[2016-11-28 06:53] LABS: ADD MANUAL DIFF? NO
[2016-11-28 07:07] LABS: ALB/GLOB RATIO 0.9 (1.1-1.8); BILIRUBIN,TOTAL 0.5 mg/dL (0.2-1.3); CALCIUM 9.3 mg/dL (8.4-10.5); TOTAL PROTEIN 7.6 g/dL (5.8-8.3)
[2016-11-28 07:11] LABS: BASO # 0.03 K/mm3 (0.0-2.0); BASO % 0.4 % (0.0-3.0); EOS # 0.3 (0.0-0.7); GRAN # 3.23 (1.4-6.5); GRAN % 46.2 % (50.0-68.0); HEMATOCRIT 30.7 % (36.0-48.0); LYMPH # 2.9 (1.2-3.4); MEAN CELL VOLUME 79.7 fL (80.0-105.0); MEAN CORPUSCULAR HGB CONC 32.6 g/dl (31.0-37.0); MEAN PLATELET VOLUME 9.1 fl (7.0-11.0); MONO # 0.5 (0.1-0.6); MONO % 7.4 % (1.0-6.0); PLATELET COUNT 286 10^3/uL (120.0-450.0); RED CELL DISTRIBUTION WIDTH 16.2 % (11.5-14.5)
[2016-11-28] MEDS: Insulin Reg-LOW-Coverage SC SCH ×3 (08:19→22:33)
--- NOTE | 2016-11-28 09:41 | CP.PCM.PN ---
Subjective - Date & Time of Evaluation Date of Evaluation: 11/28/16 Time of Evaluation: 08:30 - Subjective Subjective: No chest pain, C/o back pain Objective - Vital Signs/Intake and Output Vital Signs (last 24 hours): Temp Pulse Resp BP Pulse Ox 98.3 F 75 20 155/70 H 97 11/28/16 07:54 11/28/16 07:54 11/28/16 07:54 11/28/16 07:54 11/28/16 07:54 Intake and Output: 11/28/16 11/28/16 06:59 18:59 Intake Total 420 Balance 420 - Medications Medications: Current Medications Albuterol/Ipratropium (Duoneb 3 Mg/0.5 Mg (3 Ml) Ud) 3 ml IH [id number] PRN PRN Reason: Shortness of Breath Aspirin (Aspirin Chewable) 81 mg PO DAILY [facility] Last Admin: 11/27/16 12:59 Dose: 81 mg Atorvastatin Calcium (Lipitor) 20 mg PO DIN [facility] Last Admin: 11/27/16 17:39 Dose: 20 mg Clopidogrel Bisulfate (Plavix) 75 mg PO DAILY [facility] Last Admin: 11/27/16 12:59 Dose: 75 mg Docusate Sodium (Colace) 100 mg PO DAILY [facility] Last Admin: 11/27/16 10:26 Dose: Not Given Furosemide (Lasix) 20 mg PO BID [facility] Last Admin: 11/27/16 18:26 Dose: Not Given Heparin Sodium (Porcine) (Heparin) 5,000 units SC Q12 [facility] PRN Reason: Protocol Last Admin: 11/27/16 23:49 Dose: Not Given Hydromorphone HCl (Dilaudid) 0.5 mg IVP Q4H PRN PRN Reason: Pain, severe (8-10) Last Admin: 11/28/16 06:11 Dose: 0.5 mg Sodium Chloride (Sodium Chloride 0.9%) 1,000 mls @ 75 mls/hr IV .[id number] [facility] Last Admin: 11/27/16 17:40 Dose: Not Given Ceftaroline Fosamil 400 mg/ (Sodium Chloride) 100 mls @ 100 mls/hr IVPB Q12 [facility] PRN Reason: Protocol Stop: 12/04/16 22:01 Last Admin: 11/27/16 21:00 Dose: 100 mls/hr Insulin Detemir (Levemir) 10 unit SC HS [facility] Last Admin: 11/27/16 21:11 Dose: 10 unit Insulin Human Regular (Humulin R Low) 0 units SC ACHS [facility] PRN Reason: Protocol Last Admin: 11/27/16 21:12 Dose: Not Given Metoprolol Tartrate (Lopressor) 25 mg PO BID [facility] Last Admin: 11/27/16 17:39 Dose: 25 mg Morphine Sulfate (Morphine Extended Release Tab) 30 mg PO Q12 [facility] Last Admin: 11/27/16 21:00 Dose: 30 mg Pantoprazole Sodium (Protonix Inj) 40 mg IVP DAILY [facility] - Labs Labs: 11/28/16 06:10 11/28/16 06:10 PT 11.6 Seconds (9.9-11.8) 11/25/16 03:00 INR 1.07 (0.93-1.08) 11/25/16 03:00 APTT 24.2 Seconds (23.7-30.8) 11/25/16 03:00 - Constitutional Appears: Non-toxic - Head Exam Head Exam: ATRAUMATIC - Eye Exam Eye Exam: Conjunctival injection - ENT Exam ENT Exam: Mucous Membranes Moist - Neck Exam Neck Exam: Full ROM - Respiratory Exam Respiratory Exam: Chest Wall Tenderness, Clear to Ausculation Bilateral Additional comments: Mild tenderness on left side of chest. - Cardiovascular Exam Cardiovascular Exam: REGULAR RHYTHM - GI/Abdominal Exam GI & Abdominal Exam: Soft Assessment and Plan - Assessment and Plan (Free Text) Assessment: tenderness in chest wall Non ischemic Chest pain Hx of CAD, S/p PTCA with two stent in the past no Evidence of ACS Hx of Ca uterus Hx of Ca lung Bipolar disrde Hx of Spinalstenosi CKD Anemia Plan: Aggressive medical treatment ASa/Plavix statin adequate analgesia Rehab. No invasive cardiac w/u is warranted for now.
[2016-11-28] MEDS: Morphine 30 mg SR Tab PO SCH ×2 (09:59→21:33)
[2016-11-28] MEDS: Sodium Chloride 0.9% 1,000 ML IV SCH (09:59)
--- NOTE | 2016-11-28 11:22 | CP.PCM.PN ---
<Andree Mcdonough - Last Filed: 11/28/16 11:44> Subjective - Date & Time of Evaluation Date of Evaluation: 11/28/16 Time of Evaluation: 11:16 - Subjective Subjective: 51 year old female was seen at bedside regarding left heel ulcer. She states that she has pain to her left heel. She has an offloading boot to her left foot. She She denies any n/v/f/c/sob/cp. Objective - Vital Signs/Intake and Output Vital Signs (last 24 hours): Temp Pulse Resp BP Pulse Ox 98.3 F 75 20 155/70 H 97 11/28/16 07:54 11/28/16 09:56 11/28/16 07:54 11/28/16 09:56 11/28/16 07:54 Intake and Output: 11/28/16 11/28/16 06:59 18:59 Intake Total 420 Balance 420 - Medications Medications: Current Medications Albuterol/Ipratropium (Duoneb 3 Mg/0.5 Mg (3 Ml) Ud) 3 ml IH [id number] PRN PRN Reason: Shortness of Breath Aspirin (Aspirin Chewable) 81 mg PO DAILY [facility] Last Admin: 11/28/16 09:56 Dose: 81 mg Atorvastatin Calcium (Lipitor) 20 mg PO DIN [facility] Last Admin: 11/27/16 17:39 Dose: 20 mg Clopidogrel Bisulfate (Plavix) 75 mg PO DAILY [facility] Last Admin: 11/28/16 09:56 Dose: 75 mg Docusate Sodium (Colace) 100 mg PO DAILY [facility] Last Admin: 11/28/16 09:56 Dose: 100 mg Furosemide (Lasix) 20 mg PO BID [facility] Last Admin: 11/28/16 09:55 Dose: Not Given Heparin Sodium (Porcine) (Heparin) 5,000 units SC Q12 [facility] PRN Reason: Protocol Last Admin: 11/28/16 10:07 Dose: Not Given Hydromorphone HCl (Dilaudid) 0.5 mg IVP Q4H PRN PRN Reason: Pain, severe (8-10) Last Admin: 11/28/16 10:09 Dose: 0.5 mg Sodium Chloride (Sodium Chloride 0.9%) 1,000 mls @ 75 mls/hr IV .[id number] [facility] Last Admin: 11/28/16 09:59 Dose: Not Given Ceftaroline Fosamil 400 mg/ (Sodium Chloride) 100 mls @ 100 mls/hr IVPB Q12 [facility] PRN Reason: Protocol Stop: 12/04/16 22:01 Last Admin: 11/28/16 09:57 Dose: 100 mls/hr Insulin Detemir (Levemir) 10 unit SC HS [facility] Last Admin: 11/27/16 21:11 Dose: 10 unit Insulin Human Regular (Humulin R Low) 0 units SC ACHS [facility] PRN Reason: Protocol Last Admin: 11/27/16 21:12 Dose: Not Given Metoprolol Tartrate (Lopressor) 25 mg PO BID [facility] Last Admin: 11/28/16 09:56 Dose: 25 mg Morphine Sulfate (Morphine Extended Release Tab) 30 mg PO Q12 [facility] Last Admin: 11/28/16 09:59 Dose: 30 mg Pantoprazole Sodium (Protonix Inj) 40 mg IVP DAILY [facility] Last Admin: 11/28/16 09:55 Dose: 40 mg - Labs Labs: 11/28/16 06:10 11/28/16 06:10 PT 11.6 Seconds (9.9-11.8) 11/25/16 03:00 INR 1.07 (0.93-1.08) 11/25/16 03:00 APTT 24.2 Seconds (23.7-30.8) 11/25/16 03:00 - Constitutional Appears: No Acute Distress, Chronically Ill - Extremities Exam Additional comments: Left lower extremity focused exam: Vasc: DP and PT pulses noted. CFT < 3 seconds to digits x5. Skin temperature warm to cool from proximal to distal Derm: Ulceration noted to the left heel measuring approximately 4 cm by 4 cm by 0.4 cm with exposed bone,no abscess noted, no necrotic tissue noted, scant amount of sanginous drainage noted, edema noted to the maren-wound area. Sutures noted to the proximal and distal aspect of ulcer to left heel Ortho: Tenderness to palpation of the left heel Neuro: Gross sensation diminished - Neurological Exam Neurological Exam: Alert, Awake - Psychiatric Exam Psychiatric exam: Normal Affect, Normal Mood Assessment and Plan - Assessment and Plan (Free Text) Assessment: 51 year old female with ulceration to left heel with exposed bone and osteomylitis Plan: patient examined and evaluated discussed with attending, Dr. 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 <Tyler Hughes - Last Filed: 11/28/16 12:17> Objective - Vital Signs/Intake and Output Vital Signs (last 24 hours): Temp Pulse Resp BP Pulse Ox 98.3 F 75 20 155/70 H 97 11/28/16 07:54 11/28/16 09:56 11/28/16 07:54 11/28/16 09:56 11/28/16 07:54 Intake and Output: 11/28/16 11/28/16 06:59 18:59 Intake Total 420 Balance 420 - Medications Medications: Current Medications Albuterol/Ipratropium (Duoneb 3 Mg/0.5 Mg (3 Ml) Ud) 3 ml IH [id number] PRN PRN Reason: Shortness of Breath Aspirin (Aspirin Chewable) 81 mg PO DAILY [facility] Last Admin: 11/28/16 09:56 Dose: 81 mg Atorvastatin Calcium (Lipitor) 20 mg PO DIN [facility] Last Admin: 11/27/16 17:39 Dose: 20 mg Clopidogrel Bisulfate (Plavix) 75 mg PO DAILY [facility] Last Admin: 11/28/16 09:56 Dose: 75 mg Docusate Sodium (Colace) 100 mg PO DAILY [facility] Last Admin: 11/28/16 09:56 Dose: 100 mg Furosemide (Lasix) 20 mg PO BID [facility] Last Admin: 11/28/16 09:55 Dose: Not Given Heparin Sodium (Porcine) (Heparin) 5,000 units SC Q12 [facility] PRN Reason: Protocol Last Admin: 11/28/16 10:07 Dose: Not Given Hydromorphone HCl (Dilaudid) 0.5 mg IVP Q4H PRN PRN Reason: Pain, severe (8-10) Last Admin: 11/28/16 10:09 Dose: 0.5 mg Sodium Chloride (Sodium Chloride 0.9%) 1,000 mls @ 75 mls/hr IV .[id number] [facility] Last Admin: 11/28/16 09:59 Dose: Not Given Ceftaroline Fosamil 400 mg/ (Sodium Chloride) 100 mls @ 100 mls/hr IVPB Q12 [facility] PRN Reason: Protocol Stop: 12/04/16 22:01 Last Admin: 11/28/16 09:57 Dose: 100 mls/hr Insulin Detemir (Levemir) 10 unit SC HS [facility] Last Admin: 11/27/16 21:11 Dose: 10 unit Insulin Human Regular (Humulin R Low) 0 units SC ACHS [facility] PRN Reason: Protocol Last Admin: 11/27/16 21:12 Dose: Not Given Metoprolol Tartrate (Lopressor) 25 mg PO BID [facility] Last Admin: 11/28/16 09:56 Dose: 25 mg Morphine Sulfate (Morphine Extended Release Tab) 30 mg PO Q12 [facility] Last Admin: 11/28/16 09:59 Dose: 30 mg Pantoprazole Sodium (Protonix Inj) 40 mg IVP DAILY [facility] Last Admin: 11/28/16 09:55 Dose: 40 mg - Labs Labs: 11/28/16 06:10 11/28/16 06:10 PT 11.6 Seconds (9.9-11.8) 11/25/16 03:00 INR 1.07 (0.93-1.08) 11/25/16 03:00 APTT 24.2 Seconds (23.7-30.8) 11/25/16 03:00 Attending/Attestation - Attestation I have personally seen and examined this patient.: Yes I have fully participated in the care of the patient.: Yes I have reviewed all pertinent clinical information, including history, physical exam and plan: Yes
--- NOTE | 2016-11-28 11:27 | CP.PCM.PN ---
Subjective - Date & Time of Evaluation Date of Evaluation: 11/28/16 Time of Evaluation: 10:25 - Subjective Subjective: Comfortable in bed, not in distress, afebrile, still with some pain in the foot. Objective - Vital Signs/Intake and Output Vital Signs (last 24 hours): Temp Pulse Resp BP Pulse Ox 98.3 F 75 20 155/70 H 97 11/28/16 07:54 11/28/16 07:54 11/28/16 07:54 11/28/16 07:54 11/28/16 07:54 Intake and Output: 11/28/16 11/28/16 06:59 18:59 Intake Total 420 Balance 420 - Medications Medications: Current Medications Albuterol/Ipratropium (Duoneb 3 Mg/0.5 Mg (3 Ml) Ud) 3 ml IH [id number] PRN PRN Reason: Shortness of Breath Aspirin (Aspirin Chewable) 81 mg PO DAILY [facility] Last Admin: 11/27/16 12:59 Dose: 81 mg Atorvastatin Calcium (Lipitor) 20 mg PO DIN [facility] Last Admin: 11/27/16 17:39 Dose: 20 mg Clopidogrel Bisulfate (Plavix) 75 mg PO DAILY [facility] Last Admin: 11/27/16 12:59 Dose: 75 mg Docusate Sodium (Colace) 100 mg PO DAILY [facility] Last Admin: 11/27/16 10:26 Dose: Not Given Furosemide (Lasix) 20 mg PO BID [facility] Last Admin: 11/27/16 18:26 Dose: Not Given Heparin Sodium (Porcine) (Heparin) 5,000 units SC Q12 MIKKI PRN Reason: Protocol Last Admin: 11/27/16 23:49 Dose: Not Given Hydromorphone HCl (Dilaudid) 0.5 mg IVP Q4H PRN PRN Reason: Pain, severe (8-10) Last Admin: 11/28/16 06:11 Dose: 0.5 mg Sodium Chloride (Sodium Chloride 0.9%) 1,000 mls @ 75 mls/hr IV .[id number] [facility] Last Admin: 11/27/16 17:40 Dose: Not Given Ceftaroline Fosamil 400 mg/ (Sodium Chloride) 100 mls @ 100 mls/hr IVPB Q12 MIKKI PRN Reason: Protocol Stop: 12/04/16 22:01 Last Admin: 11/27/16 21:00 Dose: 100 mls/hr Insulin Detemir (Levemir) 10 unit SC HS [facility] Last Admin: 11/27/16 21:11 Dose: 10 unit Insulin Human Regular (Humulin R Low) 0 units SC ACHS [facility] PRN Reason: Protocol Last Admin: 11/27/16 21:12 Dose: Not Given Metoprolol Tartrate (Lopressor) 25 mg PO BID [facility] Last Admin: 11/27/16 17:39 Dose: 25 mg Morphine Sulfate (Morphine Extended Release Tab) 30 mg PO Q12 [facility] Last Admin: 11/27/16 21:00 Dose: 30 mg Pantoprazole Sodium (Protonix Inj) 40 mg IVP DAILY [facility] - Labs Labs: 11/28/16 06:10 11/28/16 06:10 PT 11.6 Seconds (9.9-11.8) 11/25/16 03:00 INR 1.07 (0.93-1.08) 11/25/16 03:00 APTT 24.2 Seconds (23.7-30.8) 11/25/16 03:00 - Constitutional Appears: Non-toxic, No Acute Distress - Head Exam Head Exam: NORMAL INSPECTION - Neck Exam Neck Exam: absent: Meningismus - Respiratory Exam Respiratory Exam: Decreased Breath Sounds - Cardiovascular Exam Cardiovascular Exam: +S1, +S2 - GI/Abdominal Exam GI & Abdominal Exam: Soft. absent: Tenderness - Extremities Exam Additional comments: foot with dressings in place Assessment and Plan - Assessment and Plan (Free Text) Plan: Assessment Probable left foot osteomyelitis (was on antibiotics prior to admission) chest pain rule out acute coronary syndrome S/P left PICC line placement dyslipidemia DM HTN history of cholecystitis chronic renal failure history of uterine cancer CAD history of depression history of DVT Plan Continue Teflaro (day 4) pending final wound cx results; reviewed Podiatry evaluation and old medical records (patient apparently had a sample of the bone from the heel removed but no cultures seen on the medical records) will follow clinically while the patient is in the hospital Discussed with Dr. Poe
--- NOTE | 2016-11-28 16:51 | CP.PCM.CON ---
History of Present Illness - History of Present Illness History of Present Illness: Shortly patient is 51 years old female, reported history of bipolar disorder, patient denied, patient was admitted on the medical side for evaluation of chest pain, psych consult was called for evaluation of possible depressive symptoms, patient is verbal abuse towards staff, possible medication management. Patient was seen and examined, patient reluctant to have interview, patient made statement "I do need psychiatrist, I am fine, I don't want to speak to you ". Patient has multiple medical issues including [place], asthma, cholecystitis, chronic kidney disease, depression, diabetes, DVT, hyperlipidemia, hypertension , uterine CA, Lung CA, and thromboembolic disorder, right heel osteomyelitis on IV Zosyn. she reported that she has difficulty to fall asleep, patient seems to be aware of psychotropic medications, patient knows that Zyprexa is antipsychotic medications, patient also knows majority of antidepressants. Patient was in agreement to take trazodone as needed for insomnia, patient was educated about the risk, benefits, and alternatives of the medications, patient was reluctantly accepting this advertising copy writer help. Patient was obviously irritable, angry, guarded. pt asked this advertising copy writer to leave. RN approached this advertising copy writer 3 times, because patient is verbally abusive, patient demanding, disrespectful. this wrier will start some PRN meds for the pt. patient denied thoughts of harming herself or others. Patient denied history of mental illness, but obviously has symptoms, as well as patient is aware of majority off psychotropic medications, which gives this advertising copy writer impression that patient has long history of mental illness. 11/28/16 06:10 11/28/16 06:10 Lab Results 11/28/16 16:08: POC Glucose (mg/dL) 226 H 11/28/16 11:54: POC Glucose (mg/dL) 198 H 11/28/16 06:10: Sodium 138, Potassium 4.0, Chloride 103, Carbon Dioxide 26, Anion Gap 13, BUN 39 H, Creatinine 1.5 H, Est GFR ( Amer) 44, Est GFR ( Non-Af Amer) 36, Random Glucose 165 H, Calcium 9.3, Total Bilirubin 0.5, AST 35 , ALT 52, Alkaline Phosphatase 553 H, Total Protein 7.6, Albumin 3.7, Globulin 3.9, Albumin/Globulin Ratio 0.9 L 11/28/16 06:10: WBC 7.0, RBC 3.85, Hgb 10.0 L, Hct 30.7 L, MCV 79.7 L, MCH 26.0 , MCHC 32.6, RDW 16.2 H, Plt Count 286, MPV 9.1, Gran % 46.2 L, Lymph % (Auto) 42.0 H, [place] % (Auto) 7.4 H, Eos % (Auto) 4.0, Baso % (Auto) 0.4, Gran # 3.23, Lymph # 2.9, [place] # 0.5, Eos # 0.3, Baso # 0.03 11/27/16 12:50: POC Glucose (mg/dL) 231 H 11/27/16 08:20: Sodium 141, Potassium 3.9, Chloride 105, Carbon Dioxide 25, Anion Gap 15, BUN 39 H, Creatinine 1.4, Est GFR ( Amer) 48, Est GFR (Non- Af Amer) 39, Random Glucose 198 H, Calcium 9.2, Total Bilirubin 0.6, AST 50 H, ALT 53, Alkaline Phosphatase 619 H, Total Protein 7.4, Albumin 3.7, Globulin 3.8 , Albumin/Globulin Ratio 1.0 L 11/27/16 08:20: WBC 6.5, RBC 3.61, Hgb 9.5 L, Hct 28.8 L, MCV 79.8 L, MCH 26.3, MCHC 33.0, RDW 16.2 H, Plt Count 274, MPV 8.8, Gran % 50.2, Lymph % (Auto) 37.7 H, [place] % (Auto) 8.2 H, Eos % (Auto) 3.1, Baso % (Auto) 0.8, Gran # 3.24, Lymph # 2.4, [place] # 0.5, Eos # 0.2, Baso # 0.05 11/27/16 07:35: POC Glucose (mg/dL) 222 H 11/26/16 11:30: POC Glucose (mg/dL) 189 H 11/26/16 07:39: POC Glucose (mg/dL) 109 11/26/16 05:45: Hemoglobin A1c 8.2 H 11/26/16 05:45: Sodium 142, Potassium 4.1, Chloride 108 H, Carbon Dioxide 25, Anion Gap 13, BUN 47 H, Creatinine 1.4, Est GFR ( Amer) 48, Est GFR (Non- Af Amer) 39, Random Glucose 119 H, Calcium 9.3, Phosphorus 3.3, Magnesium 1.8, Total Bilirubin 0.5, AST 46 H, ALT 53, Alkaline Phosphatase 580 H, Total Protein 7.2, Albumin 3.5, Globulin 3.7, Albumin/Globulin Ratio 0.9 L 11/26/16 05:45: WBC 6.1, RBC 3.44 L, Hgb 8.9 L, Hct 27.5 L, MCV 79.9 L, MCH 25.9 , MCHC 32.4, RDW 16.8 H, Plt Count 283, MPV 9.2, Gran % 44.6 L, Lymph % (Auto) 45.2 H, [place] % (Auto) 6.4 H, Eos % (Auto) 3.1, Baso % (Auto) 0.7, Gran # 2.72, Lymph # 2.8, [place] # 0.4, Eos # 0.2, Baso # 0.04 11/25/16 21:18: POC Glucose (mg/dL) 170 H 11/25/16 17:20: Urine Color Yellow, Urine Appearance Clear, Urine pH 6.0, Ur Specific [place] 1.025, Urine Protein 100 H, Urine Glucose (UA) 250 H, Urine Ketones Negative, Urine Blood Trace-intact H, Urine Nitrate Negative, Urine Bilirubin Negative, Urine Urobilinogen 0.2, Ur Leukocyte Esterase Negative, Urine RBC 1 - 3, Urine WBC 0 - 2, Ur Epithelial Cells 3 - 4 11/25/16 16:10: POC Glucose (mg/dL) 304 H 11/25/16 12:55: Iron 78, TIBC 285, % Saturation 27 11/25/16 12:55: Troponin I < 0.01 11/25/16 12:55: TSH 3rd Generation 3.86 11/25/16 12:55: Hemoglobin A1c 8.1 H 11/25/16 12:55: Phosphorus 3.6, Magnesium 2.0, Ferritin 33.1, Troponin I < 0.01 , NT-Pro-B Natriuret Pep 1060 H, Triglycerides 111, Cholesterol 201 H, LDL Cholesterol Direct 103, HDL Cholesterol 54, Vitamin B12 282, Folate > 20.0 11/25/16 12:26: POC Glucose (mg/dL) 344 H 11/25/16 03:00: D-Dimer, Quantitative 1.55 H 11/25/16 03:00: WBC 6.1, RBC 3.74, Hgb 9.8 L, Hct 29.7 L, MCV 79.4 L, MCH 26.2, MCHC 33.0, RDW 16.6 H, Plt Count 314, MPV 8.7 11/25/16 03:00: Sodium 134, Potassium 5.2 H, Chloride 102, Carbon Dioxide 23, Anion Gap 14, BUN 55 H, Creatinine 1.5 H, Est GFR ( Amer) 44, Est GFR ( Non-Af Amer) 36, Random Glucose 379 H*, Calcium 9.5, Total Bilirubin 0.5, AST 58 H, ALT 66 H, Alkaline Phosphatase 704 H, Lactate Dehydrogenase 499, Total Creatine Kinase 50, Troponin I 0.01, Total Protein 8.0, Albumin 4.0, Globulin 4.0, Albumin/Globulin Ratio 1.0 L 11/25/16 03:00: PT 11.6, INR 1.07, APTT 24.2 Temp Pulse Resp BP Pulse Ox 97.4 F L 69 20 143/72 92 L 11/28/16 16:00 11/28/16 16:00 11/28/16 16:00 11/28/16 16:00 11/28/16 16:00 mental status examination: Patient presented to be alert, oriented, intense eye contact, angry Luke, speech is underproductive, yes no answers, mood described "I'm fine, I do need to speak to psychiatrist", affect is mood congruent, thought process is concrete, thought content patient is guarded, seems to be paranoid, but denied visual distorted tactile hallucinations, denied thoughts of harming self or others. Insight and judgment are limited, impulses are unpredictable. Impression this advertising copy writer would like to rule out mood disorder due to general medical condition patient has multiple medical issues As per history most likely patient has bipolar disorder versus schizoaffective disorder Rule out adjustment disorder Plan: Risperdal 0.5 mg 3 times a day as needed for possible agitation and psychosis Geodon 10 mg 3 times a day as needed for severe agitation and aggression Head 7.5 mg 3 times a day as needed for anxiety Trazodone 50 mg at the nighttime for mood symptoms as well as for insomnia Continue current management call me if you have any questions SW evaluation family involvement this advertising copy writer will sign off if pt will change her mind and willing to talk to this wrier, please reconsult. Past Patient History - Tetanus Immunizations Tetanus Immunization: Unknown - Past Medical History & Family History Past Medical History?: Yes - Past Social History Smoking Status: Never Smoked Alcohol: None Drugs: Denies Home Situation {Lives}: With Family - CARDIAC Hx Heart Attack: Yes Hx Hypertension: Yes - PULMONARY Hx Asthma: Yes Hx Lung Cancer: Yes - HEENT Hx HEENT Problems: Yes Other/Comment: diff vision - RENAL Hx Chronic Kidney Disease: Yes Hx Renal Failure: Yes Other/Comment: cancer - ENDOCRINE/METABOLIC Hx Diabetes Mellitus Type 2: Yes - HEMATOLOGICAL/ONCOLOGICAL Hx Anemia: Yes Hx Cancer: Yes Hx Chemotherapy: Yes - INTEGUMENTARY Other/Comment: osteomylitis r foot - MUSCULOSKELETAL/RHEUMATOLOGICAL Hx Osteomyelitis: Yes (r foot) Other/Comment: dvt rue - GASTROINTESTINAL Hx Gastrointestinal Disorders: No - GENITOURINARY/GYNECOLOGICAL Hx Genitourinary Disorders: No - PSYCHIATRIC Hx Bipolar Disorder: Yes Hx Depression: Yes Hx Substance Use: No Other/Comment: drug seeking - SURGICAL HISTORY Other/Comment: r nephrectomy/r foot. / picc left upper arm Meds Allergies/Adverse Reactions: Allergies Allergy/AdvReac Type Severity Reaction Status Date / Time ketorolac [From Toradol] Allergy RASH Verified 11/25/16 02:56 - Medications Medications: Current Medications Albuterol/Ipratropium (Duoneb 3 Mg/0.5 Mg (3 Ml) Ud) 3 ml IH [id number] PRN PRN Reason: Shortness of Breath Aspirin (Aspirin Chewable) 81 mg PO DAILY [facility] Last Admin: 11/28/16 09:56 Dose: 81 mg Atorvastatin Calcium (Lipitor) 20 mg PO DIN [facility] Last Admin: 11/27/16 17:39 Dose: 20 mg Clopidogrel Bisulfate (Plavix) 75 mg PO DAILY [facility] Last Admin: 11/28/16 09:56 Dose: 75 mg Docusate Sodium (Colace) 100 mg PO DAILY [facility] Last Admin: 11/28/16 09:56 Dose: 100 mg Furosemide (Lasix) 20 mg PO BID [facility] Last Admin: 11/28/16 09:55 Dose: Not Given Heparin Sodium (Porcine) (Heparin) 5,000 units SC Q12 [facility] PRN Reason: Protocol Last Admin: 11/28/16 10:07 Dose: Not Given Hydromorphone HCl (Dilaudid) 0.5 mg IVP Q4H PRN PRN Reason: Pain, severe (8-10) Last Admin: 11/28/16 15:10 Dose: 0.5 mg Sodium Chloride (Sodium Chloride 0.9%) 1,000 mls @ 75 mls/hr IV .[id number] [facility] Last Admin: 11/28/16 09:59 Dose: Not Given Ceftaroline Fosamil 400 mg/ (Sodium Chloride) 100 mls @ 100 mls/hr IVPB Q12 [facility] PRN Reason: Protocol Stop: 12/04/16 22:01 Last Admin: 11/28/16 09:57 Dose: 100 mls/hr Insulin Detemir (Levemir) 10 unit SC HS [facility] Last Admin: 11/27/16 21:11 Dose: 10 unit Insulin Human Regular (Humulin R Low) 0 units SC ACHS [facility] PRN Reason: Protocol Last Admin: 11/28/16 12:00 Dose: Not Given Lorazepam (Ativan) 0.5 mg PO TID PRN; Protocol PRN Reason: Anxiety Metoprolol Tartrate (Lopressor) 25 mg PO BID [facility] Last Admin: 11/28/16 09:56 Dose: 25 mg Morphine Sulfate (Morphine Extended Release Tab) 30 mg PO Q12 [facility] Last Admin: 11/28/16 09:59 Dose: 30 mg Pantoprazole Sodium (Protonix Inj) 40 mg IVP DAILY [facility] Last Admin: 11/28/16 09:55 Dose: 40 mg Trazodone HCl (Desyrel) 50 mg PO HS [facility] Ziprasidone (Geodon Inj) 10 mg IM Q6 PRN; Protocol PRN Reason: Agitation Results - Vital Signs Recent Vital Signs: Last Vital Signs Temp 97.4 F L 11/28/16 16:00 Pulse 69 11/28/16 16:00 Resp 20 11/28/16 16:00 BP 143/72 11/28/16 16:00 Pulse Ox 92 L 11/28/16 16:00 - Labs Result Diagrams: 11/28/16 06:10 11/28/16 06:10 Labs: Laboratory Results - last 24 hr 11/28/16 11/28/16 11/28/16 06:10 06:10 11:54 WBC 7.0 RBC 3.85 Hgb 10.0 L Hct 30.7 L MCV 79.7 L MCH 26.0 MCHC 32.6 RDW 16.2 H Plt Count 286 MPV 9.1 Gran % 46.2 L Lymph % (Auto) 42.0 H [place] % (Auto) 7.4 H Eos % (Auto) 4.0 Baso % (Auto) 0.4 Gran # 3.23 Lymph # 2.9 [place] # 0.5 Eos # 0.3 Baso # 0.03 Sodium 138 Potassium 4.0 Chloride 103 Carbon Dioxide 26 Anion Gap 13 BUN 39 H Creatinine 1.5 H Est GFR ( Amer) 44 Est GFR (Non-Af Amer) 36 POC Glucose (mg/dL) 198 H Random Glucose 165 H Calcium 9.3 Total Bilirubin 0.5 AST 35 ALT 52 Alkaline Phosphatase 553 H Total Protein 7.6 Albumin 3.7 Globulin 3.9 Albumin/Globulin Ratio 0.9 L 11/28/16 16:08 WBC RBC Hgb Hct MCV MCH MCHC RDW Plt Count MPV Gran % Lymph % (Auto) [place] % (Auto) Eos % (Auto) Baso % (Auto) Gran # Lymph # [place] # Eos # Baso # Sodium Potassium Chloride Carbon Dioxide Anion Gap BUN Creatinine Est GFR ( Amer) Est GFR (Non-Af Amer) POC Glucose (mg/dL) 226 H Random Glucose Calcium Total Bilirubin AST ALT Alkaline Phosphatase Total Protein Albumin Globulin Albumin/Globulin Ratio
--- NOTE | 2016-11-28 18:49 | CP.PCM.PN ---
<JERSONTRES - Last Filed: 11/28/16 18:42> Subjective - Date & Time of Evaluation Date of Evaluation: 11/28/16 Time of Evaluation: 07:50 - Subjective Subjective: Medicine Progress Note: Pt was seen and assessed at bedside. Pt reports that she is concerned with changes in her vision. She reports that this has been ongoing for a few months. She describes it as "I just can't see as well as I used to". She denies any acute optic pain, sudden vision loss or trauma. She had no other complaints. She denies headache, dizziness, chest pain, shortness of breath, nausea/ vomiting or abdominal pain. Objective - Vital Signs/Intake and Output Vital Signs (last 24 hours): Temp Pulse Resp BP Pulse Ox 97.4 F L 70 20 143/72 92 L 11/28/16 16:00 11/28/16 17:49 11/28/16 16:00 11/28/16 17:49 11/28/16 16:00 Intake and Output: 11/28/16 11/28/16 06:59 18:59 Intake Total 420 Balance 420 - Medications Medications: Current Medications Albuterol/Ipratropium (Duoneb 3 Mg/0.5 Mg (3 Ml) Ud) 3 ml IH [id number] PRN PRN Reason: Shortness of Breath Aspirin (Aspirin Chewable) 81 mg PO DAILY [facility] Last Admin: 11/28/16 09:56 Dose: 81 mg Atorvastatin Calcium (Lipitor) 20 mg PO DIN [facility] Last Admin: 11/28/16 17:49 Dose: 20 mg Clopidogrel Bisulfate (Plavix) 75 mg PO DAILY [facility] Last Admin: 11/28/16 09:56 Dose: 75 mg Docusate Sodium (Colace) 100 mg PO DAILY [facility] Last Admin: 11/28/16 09:56 Dose: 100 mg Furosemide (Lasix) 20 mg PO BID [facility] Last Admin: 11/28/16 17:48 Dose: Not Given Heparin Sodium (Porcine) (Heparin) 5,000 units SC Q12 [facility] PRN Reason: Protocol Last Admin: 11/28/16 10:07 Dose: Not Given Hydromorphone HCl (Dilaudid) 0.5 mg IVP Q4H PRN PRN Reason: Pain, severe (8-10) Last Admin: 11/28/16 15:10 Dose: 0.5 mg Sodium Chloride (Sodium Chloride 0.9%) 1,000 mls @ 75 mls/hr IV .[id number] [facility] Last Admin: 11/28/16 09:59 Dose: Not Given Ceftaroline Fosamil 400 mg/ (Sodium Chloride) 100 mls @ 100 mls/hr IVPB Q12 [facility] PRN Reason: Protocol Stop: 12/04/16 22:01 Last Admin: 11/28/16 09:57 Dose: 100 mls/hr Insulin Detemir (Levemir) 10 unit SC HS [facility] Last Admin: 11/27/16 21:11 Dose: 10 unit Insulin Human Regular (Humulin R Low) 0 units SC ACHS [facility] PRN Reason: Protocol Last Admin: 11/28/16 12:00 Dose: Not Given Lorazepam (Ativan) 0.5 mg PO TID PRN; Protocol PRN Reason: Anxiety Metoprolol Tartrate (Lopressor) 25 mg PO BID [facility] Last Admin: 11/28/16 17:49 Dose: 25 mg Morphine Sulfate (Morphine Extended Release Tab) 30 mg PO Q12 [facility] Last Admin: 11/28/16 09:59 Dose: 30 mg Pantoprazole Sodium (Protonix Inj) 40 mg IVP DAILY [facility] Last Admin: 11/28/16 09:55 Dose: 40 mg Risperidone (Risperdal Oral Soln) 0.5 mg PO TID PRN; Protocol PRN Reason: agitation/psychosis Trazodone HCl (Desyrel) 50 mg PO [facility] Ziprasidone (Geodon Inj) 10 mg IM Q6 PRN; Protocol PRN Reason: Agitation - Labs Labs: 11/28/16 06:10 11/28/16 06:10 PT 11.6 Seconds (9.9-11.8) 11/25/16 03:00 INR 1.07 (0.93-1.08) 11/25/16 03:00 APTT 24.2 Seconds (23.7-30.8) 11/25/16 03:00 - Constitutional Appears: No Acute Distress - Head Exam Head Exam: NORMAL INSPECTION, NORMOCEPHALIC - Eye Exam Eye Exam: EOMI, Normal appearance - ENT Exam ENT Exam: Mucous Membranes Moist, Normal Exam - Neck Exam Neck Exam: Full ROM, Normal Inspection. absent: Lymphadenopathy - Respiratory Exam Respiratory Exam: Clear to Ausculation Bilateral, NORMAL BREATHING PATTERN. absent: Rales, Rhonchi, Wheezes - Cardiovascular Exam Cardiovascular Exam: REGULAR RHYTHM, +S1, +S2. absent: Murmur - GI/Abdominal Exam GI & Abdominal Exam: Normal Bowel Sounds. absent: Tenderness - Rectal Exam Rectal Exam: absent: NORMAL INSPECTION - Extremities Exam Extremities Exam: absent: Calf Tenderness, Pedal Edema - Neurological Exam Neurological Exam: Alert, Awake - Psychiatric Exam Psychiatric exam: Agitated - Skin Skin Exam: Dry, Intact, Normal Color, Warm Assessment and Plan - Assessment and Plan (Free Text) Assessment: 51 yo female with a history of ID, hyperlipidemia, diabetes, HTN, CKD, asthma, DVT, uterine cancer, lung cancer and thromboembolic disease S/P left heel osteo debridement presents with chest pain and left heel pain. 1. 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 Vision Changes -optho consulted and agreed to see as outpatient 3. Agitation -PRN Geodon, Risperidone and Ativan added PRN 4. Atypical chest pain/ACS rule out -TSH and lipid panel WNL -continue aspirin, lipitor, plavix, lasix, lopressor -three troponins negative 5. Elevated d-dimer/history of cancer and thromboembolic disease -V/Q scan negative -LE venous doppler showed no DVT's 6. Anemia -Hb/Hct improving at 10.0/30.7 -Iron studies within normal limits -B12 and Folate WNL -continuing to monitor with daily CBC's 7. Asthma -Duoneb q4 PRN 8. GI/DVT prophylaxis -protonix/heparin Patient seen and case discussed with attending physician, Dr. Poe. <Matthew Poe - Last Filed: 11/29/16 06:57> Objective - Vital Signs/Intake and Output Vital Signs (last 24 hours): Temp Pulse Resp BP Pulse Ox 97.4 F L 70 20 143/72 92 L 11/28/16 16:00 11/28/16 17:49 11/28/16 16:00 11/28/16 17:49 11/28/16 16:00 Intake and Output: 11/28/16 11/29/16 18:59 06:59 Intake Total 240 Output Total 0 Balance 240 - Medications Medications: Current Medications Albuterol/Ipratropium (Duoneb 3 Mg/0.5 Mg (3 Ml) Ud) 3 ml IH [id number] PRN PRN Reason: Shortness of Breath Aspirin (Aspirin Chewable) 81 mg PO DAILY [facility] Last Admin: 11/28/16 09:56 Dose: 81 mg Atorvastatin Calcium (Lipitor) 20 mg PO DIN [facility] Last Admin: 11/28/16 17:49 Dose: 20 mg Clopidogrel Bisulfate (Plavix) 75 mg PO DAILY [facility] Last Admin: 11/28/16 09:56 Dose: 75 mg Docusate Sodium (Colace) 100 mg PO DAILY [facility] Last Admin: 11/28/16 09:56 Dose: 100 mg Furosemide (Lasix) 20 mg PO BID [facility] Last Admin: 11/28/16 17:48 Dose: Not Given Heparin Sodium (Porcine) (Heparin) 5,000 units SC Q12 [facility] PRN Reason: Protocol Last Admin: 11/28/16 21:28 Dose: Not Given Hydromorphone HCl (Dilaudid) 0.5 mg IVP Q4H PRN PRN Reason: Pain, severe (8-10) Last Admin: 11/29/16 05:22 Dose: 0.5 mg Sodium Chloride (Sodium Chloride 0.9%) 1,000 mls @ 75 mls/hr IV .[id number] [facility] Last Admin: 11/28/16 09:59 Dose: Not Given Ceftaroline Fosamil 400 mg/ (Sodium Chloride) 100 mls @ 100 mls/hr IVPB Q12 [facility] PRN Reason: Protocol Stop: 12/04/16 22:01 Last Admin: 11/28/16 22:40 Dose: Not Given Insulin Detemir (Levemir) 10 unit SC HS [facility] Last Admin: 11/28/16 22:39 Dose: Not Given Insulin Human Regular (Humulin R Low) 0 units SC ACHS [facility] PRN Reason: Protocol Last Admin: 11/28/16 22:33 Dose: Not Given Lorazepam (Ativan) 0.5 mg PO TID PRN; Protocol PRN Reason: Anxiety Last Admin: 11/29/16 01:21 Dose: 0.5 mg Metoprolol Tartrate (Lopressor) 25 mg PO BID [facility] Last Admin: 11/28/16 17:49 Dose: 25 mg Morphine Sulfate (Morphine Extended Release Tab) 30 mg PO Q12 [facility] Last Admin: 11/28/16 21:33 Dose: 30 mg Pantoprazole Sodium (Protonix Inj) 40 mg IVP DAILY [facility] Last Admin: 11/28/16 09:55 Dose: 40 mg Risperidone (Risperdal Oral Soln) 0.5 mg PO TID PRN; Protocol PRN Reason: agitation/psychosis Trazodone HCl (Desyrel) 50 mg PO HS [facility] Last Admin: 11/28/16 21:33 Dose: 50 mg Ziprasidone (Geodon Inj) 10 mg IM Q6 PRN; Protocol PRN Reason: Agitation - Labs Labs: 11/29/16 06:00 11/28/16 06:10 PT 11.6 Seconds (9.9-11.8) 11/25/16 03:00 INR 1.07 (0.93-1.08) 11/25/16 03:00 APTT 24.2 Seconds (23.7-30.8) 11/25/16 03:00 Attending/Attestation - Attestation I have personally seen and examined this patient.: Yes I have fully participated in the care of the patient.: Yes I have reviewed all pertinent clinical information, including history, physical exam and plan: Yes Notes (Text): 11/28/16 51 year old female with past medical history of ID, diabetes, hypertension, ? history of uterine and lung cancer (patient is poor historian), chronic left heel ulcer and ?OM who was recently discharged to [place] on iv antibiotics who presented with complaint of chest pain. Serial cardiac enzymes were negative and ACS was ruled out. Cardiology is following and she is on aspirin, plavix, statin and lopressor. Ddimer was elevated however VQ scan and LE doppler is negative. Continue with iv antibiotics as per ID and wound care as per podiatry for chronic left heel ulcer. Prior recent medical records from [facility] were reviewed. Wound culture is growing Proteus Mirabilis and Staph Aureus. She is on levemir and insulin ss for diabetes. Patient also has CKD and anemia (possibly from anemia of chronic disease) which we will continue to monitor. Patient reports she will follow up with her pmd/oncologist for history of lung and uterine cancer. She complains of chronic pain. As per nurse she is refusing to eat at times and asking only for iv dilaudid every 4 hours. Morphine ER was added. She is agitated at times and often refusing medications and even eating. Psychiatry evaluation was requested. She complains of poor vision over the past few weeks-months and ophthalmology evaluation was requested. Case was discussed with porter sample case / sr. social media & mobile manager regarding d/c planning to [place]. Matthew Poe MD Hospitalist.
[2016-11-28] MEDS: Insulin Detemir 100 units/ml Vial (Levemir) SC SCH (22:39)
[2016-11-29] MEDS: HYDROmorphone 0.5 mg/0.5 ml ISec IVP PRN ×5 (01:13→19:54)
[2016-11-29 06:18] LABS: ADD MANUAL DIFF? NO
[2016-11-29 06:26] LABS: BASO # 0.01 K/mm3 (0.0-2.0); BASO % 0.3 % (0.0-3.0); EOS # 0.1 (0.0-0.7); EOS % 3.4 % (1.5-5.0); GRAN % 41.9 % (50.0-68.0); LYMPH # 1.7 (1.2-3.4); LYMPH % 48.3 % (22.0-35.0); MEAN CELL VOLUME 79.9 fL (80.0-105.0); MEAN CORPUSCULAR HEMOGLOBIN 25.7 pg (25.0-35.0); MEAN CORPUSCULAR HGB CONC 32.2 g/dl (31.0-37.0); MEAN PLATELET VOLUME 9.8 fl (7.0-11.0); MONO # 0.2 (0.1-0.6); MONO % 6.1 % (1.0-6.0); PLATELET COUNT 90 10^3/uL (120.0-450.0); RED CELL DISTRIBUTION WIDTH 16.2 % (11.5-14.5); WHITE BLOOD COUNT 3.6 10^3/ul (4.5-11.0)
[2016-11-29] MEDS: Insulin Reg-LOW-Coverage SC SCH ×4 (07:54→22:34)
[2016-11-29] MEDS: Morphine 30 mg SR Tab PO SCH ×2 (09:45→21:41)
--- NOTE | 2016-11-29 10:01 | CP.PCM.PN ---
<KandyMahesh - Last Filed: 11/29/16 09:54> Subjective - Date & Time of Evaluation Date of Evaluation: 11/29/16 Time of Evaluation: 09:54 - Subjective Subjective: 51 year old female seen at bedside for left heel ulceration with osteomyelitis. She states that she is in some discomfort this morning but denies any acute overnight events. Patient denies N/V/F/C/CP/SOB. Patient denies any further pedal complaints at this time Objective - Vital Signs/Intake and Output Vital Signs (last 24 hours): Temp Pulse Resp BP Pulse Ox 98.4 F 72 18 123/88 96 11/29/16 08:00 11/29/16 09:47 11/29/16 08:00 11/29/16 09:47 11/29/16 08:00 Intake and Output: 11/29/16 11/29/16 06:59 18:59 Intake Total 240 Output Total 0 Balance 240 - Medications Medications: Current Medications Albuterol/Ipratropium (Duoneb 3 Mg/0.5 Mg (3 Ml) Ud) 3 ml IH [id number] PRN PRN Reason: Shortness of Breath Aspirin (Aspirin Chewable) 81 mg PO DAILY [facility] Last Admin: 11/29/16 09:46 Dose: 81 mg Atorvastatin Calcium (Lipitor) 20 mg PO DIN [facility] Last Admin: 11/28/16 17:49 Dose: 20 mg Clopidogrel Bisulfate (Plavix) 75 mg PO DAILY [facility] Last Admin: 11/29/16 09:46 Dose: 75 mg Docusate Sodium (Colace) 100 mg PO DAILY [facility] Last Admin: 11/29/16 09:45 Dose: 100 mg Furosemide (Lasix) 20 mg PO BID [facility] Last Admin: 11/29/16 09:42 Dose: Not Given Heparin Sodium (Porcine) (Heparin) 5,000 units SC Q12 [facility] PRN Reason: Protocol Last Admin: 11/28/16 21:28 Dose: Not Given Hydromorphone HCl (Dilaudid) 0.5 mg IVP Q4H PRN PRN Reason: Pain, severe (8-10) Last Admin: 11/29/16 05:22 Dose: 0.5 mg Sodium Chloride (Sodium Chloride 0.9%) 1,000 mls @ 75 mls/hr IV .[id number] [facility] Last Admin: 11/28/16 09:59 Dose: Not Given Piperacillin Sod/Tazobactam Sod (Zosyn 3.375 In Ns 100ml) 100 mls @ 200 mls/hr IVPB Q6 [facility] PRN Reason: Protocol Stop: 12/06/16 12:01 Insulin Detemir (Levemir) 10 unit SC HS [facility] Last Admin: 11/28/16 22:39 Dose: Not Given Insulin Human Regular (Humulin R Low) 0 units SC ACHS [facility] PRN Reason: Protocol Last Admin: 11/29/16 07:54 Dose: Not Given Lorazepam (Ativan) 0.5 mg PO TID PRN; Protocol PRN Reason: Anxiety Last Admin: 11/29/16 09:46 Dose: 0.5 mg Metoprolol Tartrate (Lopressor) 25 mg PO BID [facility] Last Admin: 11/29/16 09:47 Dose: 25 mg Morphine Sulfate (Morphine Extended Release Tab) 30 mg PO Q12 [facility] Last Admin: 11/29/16 09:45 Dose: 30 mg Risperidone (Risperdal Oral Soln) 0.5 mg PO TID PRN; Protocol PRN Reason: agitation/psychosis Trazodone HCl (Desyrel) 50 mg PO [facility] Last Admin: 11/28/16 21:33 Dose: 50 mg Ziprasidone (Geodon Inj) 10 mg IM Q6 PRN; Protocol PRN Reason: Agitation - Labs Labs: 11/29/16 06:00 11/28/16 06:10 PT 11.6 Seconds (9.9-11.8) 11/25/16 03:00 INR 1.07 (0.93-1.08) 11/25/16 03:00 APTT 24.2 Seconds (23.7-30.8) 11/25/16 03:00 - Constitutional Appears: Well, Non-toxic, No Acute Distress - Extremities Exam Additional comments: LLE focused exam: Vasc: DP/PT pulses present. CFT < 3 seconds to digits 1-10. Skin temperature warm to cool from proximal to distal Neuro: Epicrtic and protective sensation grossly diminished Derm: Ulceration noted to left heel measuring roughly 4 cm x 4 cm x 0.4 cm with exposed bone present. No abcess or fluctuance is noted at this time. No necrotic tissue or drainage noted. Mild, pitting edema noted to the periwound area. Sutures noted to proximal and distal ends of ulcer. Sutures are intact with skin edges well coapted. No signs of dehiscence noted MSK: Pain on palpation noted to left heel - Neurological Exam Neurological Exam: Alert, Awake, Oriented x3 - Psychiatric Exam Psychiatric exam: Normal Affect, Normal Mood Assessment and Plan - Assessment and Plan (Free Text) Assessment: 51 year old female with left posterior heel ulceration and osteomyelitis Plan: Patient seen and evaluated at bedside with attending Dr. Brady Labs, charts and vitals reviewed; pt afebrile, WBC low at 3.6 Wound dressed with xeroform, ABD and kirlix Patient to continue NWB at this time Continue abx per ID Possible D/C to [facility] Podiatry will continue to follow while in house <Sheridan Brady - Last Filed: 11/29/16 14:55> Objective - Vital Signs/Intake and Output Vital Signs (last 24 hours): Temp Pulse Resp BP Pulse Ox 98.4 F 72 18 123/88 96 11/29/16 08:00 11/29/16 09:47 11/29/16 08:00 11/29/16 09:47 11/29/16 08:00 Intake and Output: 11/29/16 11/29/16 06:59 18:59 Intake Total 240 Output Total 0 Balance 240 - Medications Medications: Current Medications Albuterol/Ipratropium (Duoneb 3 Mg/0.5 Mg (3 Ml) Ud) 3 ml IH [id number] PRN PRN Reason: Shortness of Breath Aspirin (Aspirin Chewable) 81 mg PO DAILY [facility] Last Admin: 11/29/16 09:46 Dose: 81 mg Atorvastatin Calcium (Lipitor) 20 mg PO DIN [facility] Last Admin: 11/28/16 17:49 Dose: 20 mg Clopidogrel Bisulfate (Plavix) 75 mg PO DAILY [facility] Last Admin: 11/29/16 09:46 Dose: 75 mg Docusate Sodium (Colace) 100 mg PO DAILY [facility] Last Admin: 11/29/16 09:45 Dose: 100 mg Furosemide (Lasix) 20 mg PO BID [facility] Last Admin: 11/29/16 09:42 Dose: Not Given Heparin Sodium (Porcine) (Heparin) 5,000 units SC Q12 [facility] PRN Reason: Protocol Last Admin: 11/28/16 21:28 Dose: Not Given Hydromorphone HCl (Dilaudid) 0.5 mg IVP Q4H PRN PRN Reason: Pain, severe (8-10) Last Admin: 11/29/16 14:41 Dose: 0.5 mg Sodium Chloride (Sodium Chloride 0.9%) 1,000 mls @ 75 mls/hr IV .[id number] [facility] Last Admin: 11/29/16 10:44 Dose: Not Given Piperacillin Sod/Tazobactam Sod (Zosyn 3.375 In Ns 100ml) 100 mls @ 200 mls/hr IVPB Q6 [facility] PRN Reason: Protocol Stop: 12/06/16 12:01 Last Admin: 11/29/16 13:40 Dose: Not Given Insulin Detemir (Levemir) 10 unit SC [facility] Last Admin: 11/28/16 22:39 Dose: Not Given Insulin Human Regular (Humulin R Low) [address] [facility] PRN Reason: Protocol Last Admin: 11/29/16 13:40 Dose: Not Given Lorazepam (Ativan) 0.5 mg PO TID PRN; Protocol PRN Reason: Anxiety Last Admin: 11/29/16 09:46 Dose: 0.5 mg Metoprolol Tartrate (Lopressor) 25 mg PO BID [facility] Last Admin: 11/29/16 09:47 Dose: 25 mg Morphine Sulfate (Morphine Extended Release Tab) 30 mg PO Q12 [facility] Last Admin: 11/29/16 09:45 Dose: 30 mg Risperidone (Risperdal Oral Soln) 0.5 mg PO TID PRN; Protocol PRN Reason: agitation/psychosis Trazodone HCl (Desyrel) 50 mg PO [facility] Last Admin: 11/28/16 21:33 Dose: 50 mg Ziprasidone (Geodon Inj) 10 mg IM Q6 PRN; Protocol PRN Reason: Agitation - Labs Labs: 11/29/16 06:00 11/28/16 06:10 PT 11.6 Seconds (9.9-11.8) 11/25/16 03:00 INR 1.07 (0.93-1.08) 11/25/16 03:00 APTT 24.2 Seconds (23.7-30.8) 11/25/16 03:00 Attending/Attestation - Attestation I have personally seen and examined this patient.: Yes I have fully participated in the care of the patient.: Yes I have reviewed all pertinent clinical information, including history, physical exam and plan: Yes
[2016-11-29] MEDS: Sodium Chloride 0.9% 1,000 ML IV SCH (10:44)
--- NOTE | 2016-11-29 11:49 | CP.PCM.PN ---
Subjective - Date & Time of Evaluation Date of Evaluation: 11/29/16 Time of Evaluation: 11:15 - Subjective Subjective: Comfortable in bed, not in distress, afebrile. Still with some foot pain. Objective - Vital Signs/Intake and Output Vital Signs (last 24 hours): Temp Pulse Resp BP Pulse Ox 97.4 F L 70 20 143/72 92 L 11/28/16 16:00 11/28/16 17:49 11/28/16 16:00 11/28/16 17:49 11/28/16 16:00 Intake and Output: 11/28/16 11/29/16 18:59 06:59 Intake Total 240 Output Total 0 Balance 240 - Medications Medications: Current Medications Albuterol/Ipratropium (Duoneb 3 Mg/0.5 Mg (3 Ml) Ud) 3 ml IH [id number] PRN PRN Reason: Shortness of Breath Aspirin (Aspirin Chewable) 81 mg PO DAILY [facility] Last Admin: 11/28/16 09:56 Dose: 81 mg Atorvastatin Calcium (Lipitor) 20 mg PO DIN [facility] Last Admin: 11/28/16 17:49 Dose: 20 mg Clopidogrel Bisulfate (Plavix) 75 mg PO DAILY [facility] Last Admin: 11/28/16 09:56 Dose: 75 mg Docusate Sodium (Colace) 100 mg PO DAILY [facility] Last Admin: 11/28/16 09:56 Dose: 100 mg Furosemide (Lasix) 20 mg PO BID [facility] Last Admin: 11/28/16 17:48 Dose: Not Given Heparin Sodium (Porcine) (Heparin) 5,000 units SC Q12 [facility] PRN Reason: Protocol Last Admin: 11/28/16 21:28 Dose: Not Given Hydromorphone HCl (Dilaudid) 0.5 mg IVP Q4H PRN PRN Reason: Pain, severe (8-10) Last Admin: 11/29/16 05:22 Dose: 0.5 mg Sodium Chloride (Sodium Chloride 0.9%) 1,000 mls @ 75 mls/hr IV .[id number] [facility] Last Admin: 11/28/16 09:59 Dose: Not Given Piperacillin Sod/Tazobactam Sod (Zosyn 3.375 In Ns 100ml) 100 mls @ 200 mls/hr IVPB Q6 [facility] PRN Reason: Protocol Stop: 12/06/16 12:01 Insulin Detemir (Levemir) 10 unit SC [facility] Last Admin: 11/28/16 22:39 Dose: Not Given Insulin Human Regular (Humulin R Low) 0 units SC [facility] PRN Reason: Protocol Last Admin: 11/28/16 22:33 Dose: Not Given Lorazepam (Ativan) 0.5 mg PO TID PRN; Protocol PRN Reason: Anxiety Last Admin: 11/29/16 01:21 Dose: 0.5 mg Metoprolol Tartrate (Lopressor) 25 mg PO BID [facility] Last Admin: 11/28/16 17:49 Dose: 25 mg Morphine Sulfate (Morphine Extended Release Tab) 30 mg PO Q12 [facility] Last Admin: 11/28/16 21:33 Dose: 30 mg Pantoprazole Sodium (Protonix Inj) 40 mg IVP DAILY [facility] Last Admin: 11/28/16 09:55 Dose: 40 mg Risperidone (Risperdal Oral Soln) 0.5 mg PO TID PRN; Protocol PRN Reason: agitation/psychosis Trazodone HCl (Desyrel) 50 mg PO [facility] Last Admin: 11/28/16 21:33 Dose: 50 mg Ziprasidone (Geodon Inj) 10 mg IM Q6 PRN; Protocol PRN Reason: Agitation - Labs Labs: 11/29/16 06:00 11/28/16 06:10 PT 11.6 Seconds (9.9-11.8) 11/25/16 03:00 INR 1.07 (0.93-1.08) 11/25/16 03:00 APTT 24.2 Seconds (23.7-30.8) 11/25/16 03:00 - Constitutional Appears: Non-toxic, No Acute Distress - ENT Exam ENT Exam: Mucous Membranes Moist - Neck Exam Neck Exam: absent: Lymphadenopathy, Meningismus - Respiratory Exam Respiratory Exam: Decreased Breath Sounds - Cardiovascular Exam Cardiovascular Exam: +S1, +S2 - GI/Abdominal Exam GI & Abdominal Exam: Soft. absent: Tenderness Assessment and Plan - Assessment and Plan (Free Text) Plan: Assessment Probable left foot osteomyelitis (was on antibiotics prior to admission), growing staph aureus and multidrug resistant Proteus only sensitive to Zosyn thrombocytopenia, acute, etiology to be determined chest pain rule out acute coronary syndrome S/P left PICC line placement dyslipidemia DM HTN history of cholecystitis chronic renal failure history of uterine cancer CAD history of depression history of DVT Plan switch Teflaro to Zosyn; reviewed Podiatry evaluation and old medical records ( patient apparently had a sample of the bone from the heel removed but no cultures seen on the medical records) will follow clinically while the patient is in the hospital; patient should have 4-6 weeks of antibiotics with weekly ESR, CRP, CBC, CMP follow up repeat CBC
--- NOTE | 2016-11-29 11:59 | CP.PCM.PN ---
<Orlando Brasher - Last Filed: 11/29/16 13:32> Subjective - Date & Time of Evaluation Date of Evaluation: 11/29/16 Time of Evaluation: 10:30 - Subjective Subjective: Patient seen and examined at bedside. No acute events overnight. Patient is resting in bed. States that she is having vision changes which is chronic in nature. Patient education provided regarding medication compliance. Denies fever , chills, chest pain, SOB, abdominal pain, N/V. Objective - Vital Signs/Intake and Output Vital Signs (last 24 hours): Temp Pulse Resp BP Pulse Ox 98.4 F 72 18 123/88 96 11/29/16 08:00 11/29/16 09:47 11/29/16 08:00 11/29/16 09:47 11/29/16 08:00 Intake and Output: 11/29/16 11/29/16 06:59 18:59 Intake Total 240 Output Total 0 Balance 240 - Medications Medications: Current Medications Albuterol/Ipratropium (Duoneb 3 Mg/0.5 Mg (3 Ml) Ud) 3 ml IH [id number] PRN PRN Reason: Shortness of Breath Aspirin (Aspirin Chewable) 81 mg PO DAILY [facility] Last Admin: 11/29/16 09:46 Dose: 81 mg Atorvastatin Calcium (Lipitor) 20 mg PO DIN [facility] Last Admin: 11/28/16 17:49 Dose: 20 mg Clopidogrel Bisulfate (Plavix) 75 mg PO DAILY [facility] Last Admin: 11/29/16 09:46 Dose: 75 mg Docusate Sodium (Colace) 100 mg PO DAILY [facility] Last Admin: 11/29/16 09:45 Dose: 100 mg Furosemide (Lasix) 20 mg PO BID [facility] Last Admin: 11/29/16 09:42 Dose: Not Given Heparin Sodium (Porcine) (Heparin) 5,000 units SC Q12 [facility] PRN Reason: Protocol Last Admin: 11/28/16 21:28 Dose: Not Given Hydromorphone HCl (Dilaudid) 0.5 mg IVP Q4H PRN PRN Reason: Pain, severe (8-10) Last Admin: 11/29/16 10:40 Dose: 0.5 mg Sodium Chloride (Sodium Chloride 0.9%) 1,000 mls @ 75 mls/hr IV .[id number] [facility] Last Admin: 11/29/16 10:44 Dose: Not Given Piperacillin Sod/Tazobactam Sod (Zosyn 3.375 In Ns 100ml) 100 mls @ 200 mls/hr IVPB Q6 [facility] PRN Reason: Protocol Stop: 12/06/16 12:01 Insulin Detemir (Levemir) 10 unit SC [facility] Last Admin: 11/28/16 22:39 Dose: Not Given Insulin Human Regular (Humulin R Low) 0 units SC ACHS [facility] PRN Reason: Protocol Last Admin: 11/29/16 07:54 Dose: Not Given Lorazepam (Ativan) 0.5 mg PO TID PRN; Protocol PRN Reason: Anxiety Last Admin: 11/29/16 09:46 Dose: 0.5 mg Metoprolol Tartrate (Lopressor) 25 mg PO BID [facility] Last Admin: 11/29/16 09:47 Dose: 25 mg Morphine Sulfate (Morphine Extended Release Tab) 30 mg PO Q12 [facility] Last Admin: 11/29/16 09:45 Dose: 30 mg Risperidone (Risperdal Oral Soln) 0.5 mg PO TID PRN; Protocol PRN Reason: agitation/psychosis Trazodone HCl (Desyrel) 50 mg PO [facility] Last Admin: 11/28/16 21:33 Dose: 50 mg Ziprasidone (Geodon Inj) 10 mg IM Q6 PRN; Protocol PRN Reason: Agitation - Labs Labs: 11/29/16 06:00 11/28/16 06:10 PT 11.6 Seconds (9.9-11.8) 11/25/16 03:00 INR 1.07 (0.93-1.08) 11/25/16 03:00 APTT 24.2 Seconds (23.7-30.8) 11/25/16 03:00 - Additional Findings Additional findings: - Constitutional Appears: No Acute Distress - Head Exam Head Exam: NORMAL INSPECTION, NORMOCEPHALIC - Eye Exam Eye Exam: EOMI, Normal appearance - ENT Exam ENT Exam: Mucous Membranes Moist, Normal Exam - Neck Exam Neck Exam: Full ROM, Normal Inspection. absent: Lymphadenopathy - Respiratory Exam Respiratory Exam: Clear to Ausculation Bilateral, NORMAL BREATHING PATTERN. absent: Rales, Rhonchi, Wheezes - Cardiovascular Exam Cardiovascular Exam: REGULAR RHYTHM, +S1, +S2. absent: Murmur - GI/Abdominal Exam GI & Abdominal Exam: Normal Bowel Sounds. - Extremities Exam Extremities Exam: absent: Calf Tenderness, Pedal Edema - Neurological Exam Neurological Exam: Alert, Awake, responds to verbal stimuli, answers questions, follows commands. - Psychiatric Exam Psychiatric exam: Normal Mood - Skin Skin Exam: Left Heel ucler covered with bandage Assessment and Plan - Assessment and Plan (Free Text) Assessment: Patient is a 51 yo female with a past medical history of [place], hyperlipidemia, diabetes, HTN, CKD, asthma, DVT, uterine cancer, lung cancer and thromboembolic disease S/P left heel osteo debridement who was admitted for evaluation and treatment of chest pain and left heel pain. Plan: 1. S/P Left heel ulcer debridement/osteomyelitis -wound cultures have grown staph aureus and amikacin sensitive proteus mirabilis -antibiotic switched to zosyn per ID -patient should have 4-6 weeks of antibiotics with weekly ESR, CRP, CBC, CMP as per ID -blood cultures negative after 48 hours -PICC line replaced to ensure adequate mcfp use for IV antibiotics -pain control with PO morphine and IV dilaudid -pt is continues to refuse PT/OT -podiatry and wound care on board- recs include Wound dressed with xeroform, ABD and kirlix; patient to continue NWB at this time -SW/case management working on acute care placement 2. Vision Changes -optho consulted and agreed to see as outpatient 3. Agitation -PRN Geodon, Risperidone and Ativan added PRN 4. Atypical chest pain/ACS rule out -TSH and lipid panel WNL -continue aspirin, lipitor, plavix, lasix, lopressor -three troponins negative 5. Elevated d-dimer/history of cancer and thromboembolic disease -V/Q scan negative -LE venous doppler showed no DVT's 6. Anemia -Hb/Hct decreased to 8.12/18, patient currently asymptomatic and no reported source of bleed, monitor via daily CBC -Iron studies within normal limits -B12 and Folate WNL -continuing to monitor with daily CBC's 7. Asthma -Duoneb q4 PRN 8. GI/DVT prophylaxis -protonix - stop heparin, replaced with SCD 9. Medication Noncompliance - patient education provided Patient seen and case discussed with attending physician, Dr. Poe. <Lui,Anwar A - Last Filed: 11/29/16 14:57> Objective - Vital Signs/Intake and Output Vital Signs (last 24 hours): Temp Pulse Resp BP Pulse Ox 98.4 F 72 18 123/88 96 11/29/16 08:00 11/29/16 09:47 11/29/16 08:00 11/29/16 09:47 11/29/16 08:00 Intake and Output: 11/29/16 11/29/16 06:59 18:59 Intake Total 240 Output Total 0 Balance 240 - Medications Medications: Current Medications Albuterol/Ipratropium (Duoneb 3 Mg/0.5 Mg (3 Ml) Ud) 3 ml IH [id number] PRN PRN Reason: Shortness of Breath Aspirin (Aspirin Chewable) 81 mg PO DAILY [facility] Last Admin: 11/29/16 09:46 Dose: 81 mg Atorvastatin Calcium (Lipitor) 20 mg PO DIN [facility] Last Admin: 11/28/16 17:49 Dose: 20 mg Clopidogrel Bisulfate (Plavix) 75 mg PO DAILY [facility] Last Admin: 11/29/16 09:46 Dose: 75 mg Docusate Sodium (Colace) 100 mg PO DAILY [facility] Last Admin: 11/29/16 09:45 Dose: 100 mg Furosemide (Lasix) 20 mg PO BID [facility] Last Admin: 11/29/16 09:42 Dose: Not Given Heparin Sodium (Porcine) (Heparin) 5,000 units SC Q12 [facility] PRN Reason: Protocol Last Admin: 11/28/16 21:28 Dose: Not Given Hydromorphone HCl (Dilaudid) 0.5 mg IVP Q4H PRN PRN Reason: Pain, severe (8-10) Last Admin: 11/29/16 14:41 Dose: 0.5 mg Sodium Chloride (Sodium Chloride 0.9%) 1,000 mls @ 75 mls/hr IV .[id number] [facility] Last Admin: 11/29/16 10:44 Dose: Not Given Piperacillin Sod/Tazobactam Sod (Zosyn 3.375 In Ns 100ml) 100 mls @ 200 mls/hr IVPB Q6 [facility] PRN Reason: Protocol Stop: 12/06/16 12:01 Last Admin: 11/29/16 13:40 Dose: Not Given Insulin Detemir (Levemir) 10 unit SC HS [facility] Last Admin: 11/28/16 22:39 Dose: Not Given Insulin Human Regular (Humulin R Low) 0 units SC ACHS [facility] PRN Reason: Protocol Last Admin: 11/29/16 13:40 Dose: Not Given Lorazepam (Ativan) 0.5 mg PO TID PRN; Protocol PRN Reason: Anxiety Last Admin: 11/29/16 09:46 Dose: 0.5 mg Metoprolol Tartrate (Lopressor) 25 mg PO BID [facility] Last Admin: 11/29/16 09:47 Dose: 25 mg Morphine Sulfate (Morphine Extended Release Tab) 30 mg PO Q12 [facility] Last Admin: 11/29/16 09:45 Dose: 30 mg Risperidone (Risperdal Oral Soln) 0.5 mg PO TID PRN; Protocol PRN Reason: agitation/psychosis Trazodone HCl (Desyrel) 50 mg PO [facility] Last Admin: 11/28/16 21:33 Dose: 50 mg Ziprasidone (Geodon Inj) 10 mg IM Q6 PRN; Protocol PRN Reason: Agitation - Labs Labs: 11/29/16 06:00 11/28/16 06:10 PT 11.6 Seconds (9.9-11.8) 11/25/16 03:00 INR 1.07 (0.93-1.08) 11/25/16 03:00 APTT 24.2 Seconds (23.7-30.8) 11/25/16 03:00 Attending/Attestation - Attestation I have personally seen and examined this patient.: Yes I have fully participated in the care of the patient.: Yes I have reviewed all pertinent clinical information, including history, physical exam and plan: Yes Notes (Text): 11/29/16 14:52 51 year old female with past medical history of [place], diabetes, hypertension, ? history of uterine and lung cancer (patient is poor historian), chronic left heel ulcer and ?OM who was recently discharged to [facility] on iv antibiotics who presented with complaint of chest pain. Ddimer was elevated however VQ scan and LE doppler is negative. Serial cardiac enzymes were negative and ACS was ruled out. Cardiology is following and she is on aspirin, plavix, statin and lopressor. Prior recent medical records from [facility] were reviewed. Wound culture is growing Proteus Mirabilis and Staph Aureus. Continue with iv antibiotics as per ID and wound care as per podiatry for chronic left heel ulcer. As per nurse she is still refusing medications at times. Refusing IVF and eating as well at times. I did speak with the patient regarding importance of treatment as above including antibiotics and she was agreeable. However shortly after nurse again informed me she was refusing medications and labs. Psychiatry evaluation was requested. Will follow up with recommendations. Patient also has CKD and anemia (possibly from anemia of chronic disease) which we will continue to monitor. Patient reports she will follow up with her pmd/oncologist for history of lung and uterine cancer. She is on levemir and insulin ss for diabetes. She complains of poor vision over the past few weeks-months and ophthalmology evaluation was requested. Matthew Poe MD Hospitalist.
[2016-11-29] MEDS: Piperacillin/Tazobact 3.375 gm 100 ML IVPB SCH ×2 (13:40→17:52)
[2016-11-29] MEDS: Insulin Detemir 100 units/ml Vial (Levemir) SC SCH (22:35)
[2016-11-30] MEDS: Sodium Chloride 0.9% 1,000 ML IV SCH ×2 (00:18→17:58)
[2016-11-30] MEDS: Piperacillin/Tazobact 3.375 gm 100 ML IVPB SCH ×5 (00:18→23:00)
[2016-11-30] MEDS: HYDROmorphone 0.5 mg/0.5 ml ISec IVP PRN ×3 (00:48→10:19)
[2016-11-30 05:33] LABS: ADD MANUAL DIFF? NO
[2016-11-30 06:06] LABS: BASO # 0.04 K/mm3 (0.0-2.0); BASO % 0.6 % (0.0-3.0); EOS # 0.3 (0.0-0.7); EOS % 3.9 % (1.5-5.0); GRAN # 3.57 (1.4-6.5); GRAN % 55.2 % (50.0-68.0); HEMATOCRIT 31.2 % (36.0-48.0); LYMPH # 2.2 (1.2-3.4); LYMPH % 33.2 % (22.0-35.0); MEAN CELL VOLUME 79.8 fL (80.0-105.0); MEAN CORPUSCULAR HEMOGLOBIN 26.6 pg (25.0-35.0); MEAN CORPUSCULAR HGB CONC 33.3 g/dl (31.0-37.0); MEAN PLATELET VOLUME 9.3 fl (7.0-11.0); MONO # 0.5 (0.1-0.6); MONO % 7.1 % (1.0-6.0); PLATELET COUNT 274 10^3/uL (120.0-450.0); RED CELL DISTRIBUTION WIDTH 16.3 % (11.5-14.5); WHITE BLOOD COUNT 6.5 10^3/ul (4.5-11.0)
[2016-11-30] MEDS: Morphine 30 mg SR Tab PO SCH ×2 (10:06→22:44)
[2016-11-30] MEDS: Insulin Reg-LOW-Coverage SC SCH ×3 (10:07→17:57)
[2016-11-30] MEDS ORDERED: HYDROmorphone 0.5 mg/0.5 ml ISec SC PRN (10:36)
--- NOTE | 2016-11-30 12:10 | CP.PCM.PN ---
Subjective - Date & Time of Evaluation Date of Evaluation: 11/30/16 Time of Evaluation: 10:50 - Subjective Subjective: Afebrile, still with some foot pain, refusing to take her antibiotics currently. Objective - Vital Signs/Intake and Output Vital Signs (last 24 hours): Temp Pulse Resp BP Pulse Ox 97.6 F 87 20 143/98 H 96 11/30/16 08:08 11/30/16 08:08 11/30/16 08:08 11/30/16 08:08 11/30/16 08:08 Intake and Output: 11/30/16 11/30/16 06:59 18:59 Intake Total 480 Balance 480 - Medications Medications: Current Medications Albuterol/Ipratropium (Duoneb 3 Mg/0.5 Mg (3 Ml) Ud) 3 ml IH [id number] PRN PRN Reason: Shortness of Breath Aspirin (Aspirin Chewable) 81 mg PO DAILY [facility] Last Admin: 11/29/16 09:46 Dose: 81 mg Atorvastatin Calcium (Lipitor) 20 mg PO DIN [facility] Last Admin: 11/29/16 17:40 Dose: Not Given Clopidogrel Bisulfate (Plavix) 75 mg PO DAILY [facility] Last Admin: 11/29/16 09:46 Dose: 75 mg Docusate Sodium (Colace) 100 mg PO DAILY [facility] Last Admin: 11/29/16 09:45 Dose: 100 mg Furosemide (Lasix) 20 mg PO BID [facility] Last Admin: 11/29/16 17:39 Dose: Not Given Heparin Sodium (Porcine) (Heparin) 5,000 units SC Q12 [facility] PRN Reason: Protocol Last Admin: 11/28/16 21:28 Dose: Not Given Hydromorphone HCl (Dilaudid) 0.5 mg IVP Q4H PRN PRN Reason: Pain, severe (8-10) Last Admin: 11/30/16 04:27 Dose: 0.5 mg Sodium Chloride (Sodium Chloride 0.9%) 1,000 mls @ 75 mls/hr IV .[id number] [facility] Last Admin: 11/30/16 00:18 Dose: Not Given Piperacillin Sod/Tazobactam Sod (Zosyn 3.375 In Ns 100ml) 100 mls @ 200 mls/hr IVPB Q6 [facility] PRN Reason: Protocol Stop: 12/06/16 12:01 Last Admin: 11/30/16 00:18 Dose: Not Given Insulin Detemir (Levemir) 10 unit SC HS [facility] Last Admin: 11/29/16 22:35 Dose: Not Given Insulin Human Regular (Humulin R Low) 0 units SC [facility] PRN Reason: Protocol Last Admin: 11/29/16 22:34 Dose: Not Given Lorazepam (Ativan) 0.5 mg PO TID PRN; Protocol PRN Reason: Anxiety Last Admin: 11/30/16 04:27 Dose: 0.5 mg Metoprolol Tartrate (Lopressor) 25 mg PO BID [facility] Last Admin: 11/29/16 17:40 Dose: Not Given Morphine Sulfate (Morphine Extended Release Tab) 30 mg PO Q12 [facility] Last Admin: 11/29/16 21:41 Dose: 30 mg Risperidone (Risperdal Oral Soln) 0.5 mg PO TID PRN; Protocol PRN Reason: agitation/psychosis Trazodone HCl (Desyrel) 50 mg PO [facility] Last Admin: 11/29/16 21:41 Dose: 50 mg Ziprasidone (Geodon Inj) 10 mg IM Q6 PRN; Protocol PRN Reason: Agitation - Labs Labs: 11/30/16 05:05 11/28/16 06:10 PT 11.6 Seconds (9.9-11.8) 11/25/16 03:00 INR 1.07 (0.93-1.08) 11/25/16 03:00 APTT 24.2 Seconds (23.7-30.8) 11/25/16 03:00 - Constitutional Appears: Non-toxic, No Acute Distress - Head Exam Head Exam: NORMAL INSPECTION - Neck Exam Neck Exam: absent: Meningismus - Respiratory Exam Respiratory Exam: Decreased Breath Sounds - Cardiovascular Exam Cardiovascular Exam: +S1, +S2 - GI/Abdominal Exam GI & Abdominal Exam: Soft. absent: Tenderness - Extremities Exam Additional comments: left foot with dry dressings in place Assessment and Plan - Assessment and Plan (Free Text) Plan: Assessment Probable left foot osteomyelitis (was on antibiotics prior to admission), growing staph aureus and multidrug resistant Proteus only sensitive to Zosyn S/P left PICC line placement dyslipidemia DM HTN history of cholecystitis chronic renal failure history of uterine cancer CAD history of depression history of DVT Plan continue Zosyn; reviewed Podiatry evaluation and old medical records (patient apparently had a sample of the bone from the heel removed but no cultures seen on the medical records) will follow clinically while the patient is in the hospital; patient should have 4-6 weeks of antibiotics with weekly ESR, CRP, CBC, CMP explained to patient she needs to take antibiotics otherwise she may lose the foot or worse lead to
--- NOTE | 2016-11-30 12:56 | CP.PCM.PN ---
<Orlando Brasher - Last Filed: 11/30/16 12:52> Subjective - Date & Time of Evaluation Date of Evaluation: 11/30/16 Time of Evaluation: 10:45 - Subjective Subjective: Patient seen and examined at bedside. . Patient is resting in bed. Patient was thoroughly educated on the importance of antibiotics for treatment of her foot infection. Patient is still refusing antibiotics despite being informed that not receiving the appropriate medications can increase her risk of morbidity and mortality. Denies fever, chills, chest pain, SOB, abdominal pain, N/V. Objective - Vital Signs/Intake and Output Vital Signs (last 24 hours): Temp Pulse Resp BP Pulse Ox 97.6 F 87 20 143/98 H 96 11/30/16 08:08 11/30/16 09:53 11/30/16 08:08 11/30/16 09:54 11/30/16 08:08 Intake and Output: 11/30/16 11/30/16 06:59 18:59 Intake Total 480 Balance 480 - Medications Medications: Current Medications Albuterol/Ipratropium (Duoneb 3 Mg/0.5 Mg (3 Ml) Ud) 3 ml IH [id number] PRN PRN Reason: Shortness of Breath Aspirin (Aspirin Chewable) 81 mg PO DAILY [facility] Last Admin: 11/30/16 09:54 Dose: Not Given Atorvastatin Calcium (Lipitor) 20 mg PO DIN [facility] Last Admin: 11/29/16 17:40 Dose: Not Given Clopidogrel Bisulfate (Plavix) 75 mg PO DAILY [facility] Last Admin: 11/30/16 10:06 Dose: Not Given Docusate Sodium (Colace) 100 mg PO DAILY [facility] Last Admin: 11/30/16 09:54 Dose: Not Given Furosemide (Lasix) 20 mg PO BID [facility] Last Admin: 11/30/16 09:54 Dose: Not Given Heparin Sodium (Porcine) (Heparin) 5,000 units SC Q12 [facility]I PRN Reason: Protocol Last Admin: 11/28/16 21:28 Dose: Not Given Hydromorphone HCl (Dilaudid) 0.5 mg SC Q6H PRN PRN Reason: pain Sodium Chloride (Sodium Chloride 0.9%) 1,000 mls @ 75 mls/hr IV .[id number] [facility] Last Admin: 11/30/16 00:18 Dose: Not Given Piperacillin Sod/Tazobactam Sod (Zosyn 3.375 In Ns 100ml) 100 mls @ 200 mls/hr IVPB Q6 [facility] PRN Reason: Protocol Stop: 12/06/16 12:01 Last Admin: 11/30/16 10:05 Dose: Not Given Insulin Detemir (Levemir) 10 unit SC [facility] Last Admin: 11/29/16 22:35 Dose: Not Given Insulin Human Regular (Humulin R Low) 0 units SC [facility] PRN Reason: Protocol Last Admin: 11/30/16 10:07 Dose: Not Given Lorazepam (Ativan) 0.5 mg PO TID PRN; Protocol PRN Reason: Anxiety Last Admin: 11/30/16 04:27 Dose: 0.5 mg Metoprolol Tartrate (Lopressor) 25 mg PO BID [facility] Last Admin: 11/30/16 09:53 Dose: Not Given Morphine Sulfate (Morphine Extended Release Tab) 30 mg PO Q12 [facility] Last Admin: 11/30/16 10:06 Dose: Not Given Risperidone (Risperdal Oral Soln) 0.5 mg PO TID PRN; Protocol PRN Reason: agitation/psychosis Trazodone HCl (Desyrel) 50 mg PO [facility] Last Admin: 11/29/16 21:41 Dose: 50 mg Ziprasidone (Geodon Inj) 10 mg IM Q6 PRN; Protocol PRN Reason: Agitation - Labs Labs: 11/30/16 05:05 11/28/16 06:10 PT 11.6 Seconds (9.9-11.8) 11/25/16 03:00 INR 1.07 (0.93-1.08) 11/25/16 03:00 APTT 24.2 Seconds (23.7-30.8) 11/25/16 03:00 - Additional Findings Additional findings: - Constitutional Appears: No Acute Distress - Head Exam Head Exam: NORMAL INSPECTION, NORMOCEPHALIC - Eye Exam Eye Exam: EOMI, Normal appearance - ENT Exam ENT Exam: Mucous Membranes Moist, Normal Exam - Neck Exam Neck Exam: Full ROM, Normal Inspection. absent: Lymphadenopathy - Respiratory Exam Respiratory Exam: Clear to Ausculation Bilateral, NORMAL BREATHING PATTERN. absent: Rales, Rhonchi, Wheezes - Cardiovascular Exam Cardiovascular Exam: REGULAR RHYTHM, +S1, +S2. absent: Murmur - GI/Abdominal Exam GI & Abdominal Exam: Normal Bowel Sounds. - Extremities Exam Extremities Exam: absent: Calf Tenderness, Pedal Edema - Neurological Exam Neurological Exam: Alert, Awake, responds to verbal stimuli, answers questions, - Psychiatric Exam Psychiatric exam: Mildly agitated, irritated when asked about medication compliance - Skin Skin Exam: Left Heel ucler covered with bandage Assessment and Plan - Assessment and Plan (Free Text) Assessment: Patient is a 51 yo female with a past medical history of MA, hyperlipidemia, diabetes, HTN, CKD, asthma, DVT, uterine cancer, lung cancer and thromboembolic disease S/P left heel osteo debridement who was admitted for evaluation and treatment of chest pain and left heel pain. Plan: 1. S/P Left heel ulcer debridement/osteomyelitis - zosyn per ID- patient encouraged to resume antibiotic regiment -pain control with PO morphine and IV dilaudid- reduced frequency of IV dilaudid from q4 to q6 -wound cultures have grown staph aureus and amikacin sensitive proteus mirabilis -patient should have 4-6 weeks of antibiotics with weekly ESR, CRP, CBC, CMP as per ID -blood cultures negative after 48 hours -PICC line replaced to ensure adequate exterminator termite use for IV antibiotics -pt is continues to refuse PT/OT -podiatry and wound care on board- recs include Wound dressed with xeroform, ABD and kirlix; patient to continue NWB at this time -SW/case management working on acute care placement 2. Vision Changes -optho consulted and agreed to see as outpatient 3. Agitation -PRN Geodon, Risperidone and Ativan added PRN 4. Atypical chest pain/ACS rule out -TSH and lipid panel WNL -continue aspirin, lipitor, plavix, lasix, lopressor -three troponins negative 5. Elevated d-dimer/history of cancer and thromboembolic disease -V/Q scan negative -LE venous doppler showed no DVT's 6. Anemia -Hb/Hct increased to 10.4/31.2 -Iron studies within normal limits -B12 and Folate WNL -continuing to monitor with daily CBC's 7. Asthma -Duoneb q4 PRN 8. GI/DVT prophylaxis -protonix - stop heparin, replaced with SCD 9. Medication Noncompliance - patient education provided 10. Patient Reports History of Heart and Uterine Cancer - no written record or means of attaining written record were provided by patient despite multiple inquiries - noncontrast CT of Chest, Abdomen, and Pelvis Patient seen and case discussed with attending physician, Dr. Poe. <Matthew Poe - Last Filed: 11/30/16 14:11> Objective - Vital Signs/Intake and Output Vital Signs (last 24 hours): Temp Pulse Resp BP Pulse Ox 97.6 F 87 20 143/98 H 96 11/30/16 08:08 11/30/16 09:53 11/30/16 08:08 11/30/16 09:54 11/30/16 08:08 Intake and Output: 11/30/16 11/30/16 06:59 18:59 Intake Total 480 Balance 480 - Medications Medications: Current Medications Albuterol/Ipratropium (Duoneb 3 Mg/0.5 Mg (3 Ml) Ud) 3 ml IH [id number] PRN PRN Reason: Shortness of Breath Aspirin (Aspirin Chewable) 81 mg PO DAILY [facility] Last Admin: 11/30/16 09:54 Dose: Not Given Atorvastatin Calcium (Lipitor) 20 mg PO DIN [facility] Last Admin: 11/29/16 17:40 Dose: Not Given Clopidogrel Bisulfate (Plavix) 75 mg PO DAILY [facility] Last Admin: 11/30/16 10:06 Dose: Not Given Docusate Sodium (Colace) 100 mg PO DAILY [facility] Last Admin: 11/30/16 09:54 Dose: Not Given Furosemide (Lasix) 20 mg PO BID [facility] Last Admin: 11/30/16 09:54 Dose: Not Given Heparin Sodium (Porcine) (Heparin) 5,000 units SC Q12 [facility] PRN Reason: Protocol Last Admin: 11/28/16 21:28 Dose: Not Given Hydromorphone HCl (Dilaudid) 0.5 mg SC Q6H PRN PRN Reason: pain Sodium Chloride (Sodium Chloride 0.9%) 1,000 mls @ 75 mls/hr IV .[id number] [facility] Last Admin: 11/30/16 00:18 Dose: Not Given Piperacillin Sod/Tazobactam Sod (Zosyn 3.375 In Ns 100ml) 100 mls @ 200 mls/hr IVPB Q6 [facility] PRN Reason: Protocol Stop: 12/06/16 12:01 Last Admin: 11/30/16 10:05 Dose: Not Given Insulin Detemir (Levemir) 10 unit SC [facility] Last Admin: 11/29/16 22:35 Dose: Not Given Insulin Human Regular (Humulin R Low) 0 units SC [facility] PRN Reason: Protocol Last Admin: 11/30/16 10:07 Dose: Not Given Lorazepam (Ativan) 0.5 mg PO TID PRN; Protocol PRN Reason: Anxiety Last Admin: 11/30/16 04:27 Dose: 0.5 mg Metoprolol Tartrate (Lopressor) 25 mg PO BID [facility] Last Admin: 11/30/16 09:53 Dose: Not Given Morphine Sulfate (Morphine Extended Release Tab) 30 mg PO Q12 [facility] Last Admin: 11/30/16 10:06 Dose: Not Given Pantoprazole Sodium (Protonix Ec Tab) 40 mg PO 0600 [facility] Risperidone (Risperdal Oral Soln) 0.5 mg PO TID PRN; Protocol PRN Reason: agitation/psychosis Trazodone HCl (Desyrel) 50 mg PO [facility] Last Admin: 11/29/16 21:41 Dose: 50 mg Ziprasidone (Geodon Inj) 10 mg IM Q6 PRN; Protocol PRN Reason: Agitation - Labs Labs: 11/30/16 05:05 11/28/16 06:10 PT 11.6 Seconds (9.9-11.8) 11/25/16 03:00 INR 1.07 (0.93-1.08) 11/25/16 03:00 APTT 24.2 Seconds (23.7-30.8) 11/25/16 03:00 Attending/Attestation - Attestation I have personally seen and examined this patient.: Yes I have fully participated in the care of the patient.: Yes I have reviewed all pertinent clinical information, including history, physical exam and plan: Yes Notes (Text): 11/30/16 13:58 51 year old female with past medical history of MA, diabetes, hypertension, ? history of uterine and lung cancer (patient is poor historian), chronic left heel ulcer and ?OM who was recently discharged to [facility] on iv antibiotics who presented with complaint of chest pain. D-dimer was elevated however VQ scan and LE doppler is negative. Serial cardiac enzymes were negative and ACS was ruled out. Cardiology is following and she is on aspirin, plavix, statin and lopressor. She refused echocardiogram. Prior recent medical records from [facility] were reviewed. Wound culture is growing Proteus Mirabilis and Staph Aureus. Continue with iv antibiotics as per ID and wound care as per podiatry for chronic left heel ulcer. Patient also has CKD and anemia (possibly from anemia of chronic disease) which we will continue to monitor. However patient is intermittently refusing labs. She is on levemir and insulin ss for diabetes. She is intermittently refusing fingersticks. She complains of poor vision over the past few weeks-months and ophthalmology evaluation was requested. The patient has been refusing labs, iv antibiotics, fluids and medications over the past few days. She is only requesting iv dilaudid every 4 hrs. When asked why she is in the hospital she acknowledges she has "a foot infection." However she states she "has been on antibiotics for months and this one won't do anything." When asked why she has a picc line she states "it was placed because for cancer treatment". She initially stated she has history of lung and uterine cancer. Today she states it is heart and uterine cancer. She is unable to provide any of her provider's names or number. She states her daughter is a nurse and her son is a doctor but again is unable to provide any numbers. Overall the patient is a very poor historian. The number listed on her face sheet is a non-working number. At this point we will begin to taper her dilaudid. CT chest/abd/pelvis is ordered to assess for any malignancies. If positive may consider oncology evaluation. In the meantime she is encouraged to take her medications. Risks of medication noncompliance were explained to the patient. We will request psychiatry follow up and speak with JOHNNY/Beena in AM as well. Matthew Poe MD Hospitalist.
--- NOTE | 2016-11-30 21:42 | CT ---
EXAM: CT Chest Without Intravenous Contrast CLINICAL HISTORY: 51 years old, female; Pain; Abdominal pain; Generalized; Chest pain; Type not specified; Additional info: Intract pain, HX ovarian ca, previous nephrectomy TECHNIQUE: Axial computed tomography images of the chest without intravenous contrast. This CT exam was performed using one or more of the following dose reduction techniques: automated exposure control, adjustment of the mA and/or kV according to patient size, and/or use of iterative reconstruction technique. Coronal and sagittal reformatted images were created and reviewed. COMPARISON: No relevant prior studies available. FINDINGS: Limitations: Lack of intravenous contrast. Lungs: Minimal atelectasis. No consolidation. Pleural space: No pneumothorax. No significant effusion. Heart: No cardiomegaly. No significant pericardial effusion. Coronary artery calcifications. Thyroid: 3.6 x 3.0 x 3.1 cm cyst or nodule RIGHT lobe of thyroid. Bones/joints: Mild degenerative changes of spine. Soft tissues: Unremarkable. Vasculature: Minimal atherosclerotic disease. No aneurysm. Lymph nodes: No pathologically enlarged lymph nodes. Tubes, lines and devices: PICC, tip deep within RIGHT atrium. IMPRESSION: 1. Thyroid nodule. Followup as clinically warranted. 2. PICC, tip within RIGHT atrium. Clinical correlation is needed. 3. Incidental/non-acute findings are described above. EXAM: CT Abdomen and Pelvis Without Intravenous Contrast CLINICAL HISTORY: 51 years old, female; Pain; Abdominal pain; Generalized; Chest pain; Type not specified; Additional info: Intract pain, HX ovarian ca, previous nephrectomy TECHNIQUE: Axial computed tomography images of the abdomen and pelvis without intravenous contrast. This CT exam was performed using one or more of the following dose reduction techniques: automated exposure control, adjustment of the mA and/or kV according to patient size, and/or use of iterative reconstruction technique. Coronal and sagittal reformatted images were created and reviewed. COMPARISON: No relevant prior studies available. FINDINGS: Limitations: Lack of intravenous contrast. ABDOMEN: Liver: Unremarkable. Gallbladder and bile ducts: Cholecystectomy. Mild prominence of common bile duct. Pancreas: Multiple calcifications within pancreas. No ductal dilation. Spleen: No splenomegaly. Adrenals: No mass. Kidneys and ureters: LEFT nephrectomy. No renal calculi. No hydronephrosis. Stomach and bowel: Segmental areas of mild mural thickening vs underdistention of ascending, transverse, descending colon; rectum. No associated inflammatory stranding. No obstruction. Appendix: Normal caliber. No definite inflammation. PELVIS: Bladder: Unremarkable. No stones. Reproductive: Lobulated uterus with few coarse calcifications. Suboptimal evaluation of adnexa. ABDOMEN and PELVIS: Intraperitoneal space: No significant fluid collection. No free air. Bones/joints: No acute fracture. Soft tissues: Unremarkable. Vasculature: Mild atherosclerotic disease. No aneurysm. Lymph nodes: No pathologically enlarged lymph nodes. IMPRESSION: 1. Mild colitis versus underdistention. Clinical correlation is needed. 2. Probable fibroid uterus. 3. Suboptimal evaluation of the adnexa. Suggest ultrasound. 4. Chronic pancreatitis. 5. Incidental/non-acute findings are described above.
[2016-11-30] MEDS: Insulin Detemir 100 units/ml Vial (Levemir) SC SCH (22:44)
[2016-12-01] MEDS: HYDROmorphone 0.5 mg/0.5 ml ISec IVP PRN ×4 (03:00→21:24)
[2016-12-01] MEDS: Piperacillin/Tazobact 3.375 gm 100 ML IVPB SCH ×4 (05:55→23:55)
[2016-12-01] MEDS: Pantoprazole 40 mg EC Tab PO SCH (06:03)
[2016-12-01] MEDS: Insulin Reg-LOW-Coverage SC SCH ×4 (08:30→22:54)
[2016-12-01] MEDS: Morphine 30 mg SR Tab PO SCH ×2 (09:30→21:26)
--- NOTE | 2016-12-01 09:37 | CP.PCM.PN ---
Subjective - Date & Time of Evaluation Date of Evaluation: 11/30/16 Time of Evaluation: 08:30 - Subjective Subjective: Pt s&e at bedside to d/c obtaining a CT scan for her abdomen. Patient was advised of the risks and benefits of obtaining the CT, namely, addressing any potential infections or malignancies to apply warranted intervention. Patient was agreeable to CT as long as she could take something for anxiety. I agreed to two grams of ativan for the procedure. Objective - Vital Signs/Intake and Output Vital Signs (last 24 hours): Temp Pulse Resp BP Pulse Ox 97.7 F 91 H 20 135/78 99 12/01/16 08:07 12/01/16 08:07 12/01/16 08:07 12/01/16 08:07 12/01/16 08:07 - Medications Medications: Current Medications Albuterol/Ipratropium (Duoneb 3 Mg/0.5 Mg (3 Ml) Ud) 3 ml IH [id number] PRN PRN Reason: Shortness of Breath Aspirin (Aspirin Chewable) 81 mg PO DAILY [facility] Last Admin: 12/01/16 09:28 Dose: Not Given Atorvastatin Calcium (Lipitor) 20 mg PO DIN [facility] Last Admin: 11/30/16 17:57 Dose: Not Given Clopidogrel Bisulfate (Plavix) 75 mg PO DAILY [facility] Last Admin: 12/01/16 09:30 Dose: Not Given Docusate Sodium (Colace) 100 mg PO DAILY [facility] Last Admin: 12/01/16 09:28 Dose: Not Given Furosemide (Lasix) 20 mg PO BID [facility] Last Admin: 12/01/16 09:29 Dose: Not Given Heparin Sodium (Porcine) (Heparin) 5,000 units SC Q12 [facility] PRN Reason: Protocol Last Admin: 11/28/16 21:28 Dose: Not Given Hydromorphone HCl (Dilaudid) 0.5 mg IVP Q6H PRN PRN Reason: pain Last Admin: 12/01/16 09:25 Dose: 0.5 mg Sodium Chloride (Sodium Chloride 0.9%) 1,000 mls @ 75 mls/hr IV .[id number] [facility] Last Admin: 11/30/16 17:58 Dose: Not Given Piperacillin Sod/Tazobactam Sod (Zosyn 3.375 In Ns 100ml) 100 mls @ 200 mls/hr IVPB Q6 [facility] PRN Reason: Protocol Stop: 12/06/16 12:01 Last Admin: 12/01/16 05:55 Dose: 200 mls/hr Insulin Detemir (Levemir) 10 unit SC HS [facility] Last Admin: 11/30/16 22:44 Dose: 10 unit Insulin Human Regular (Humulin R Low) 0 units SC [facility] PRN Reason: Protocol Last Admin: 12/01/16 08:30 Dose: Not Given Lorazepam (Ativan) 0.5 mg PO TID PRN; Protocol PRN Reason: Anxiety Last Admin: 11/30/16 04:27 Dose: 0.5 mg Metoprolol Tartrate (Lopressor) 25 mg PO BID [facility] Last Admin: 12/01/16 09:30 Dose: Not Given Morphine Sulfate (Morphine Extended Release Tab) 30 mg PO Q12 [facility] Last Admin: 12/01/16 09:30 Dose: Not Given Pantoprazole Sodium (Protonix Ec Tab) 40 mg PO 0600 [facility] Last Admin: 12/01/16 06:03 Dose: Not Given Risperidone (Risperdal Oral Soln) 0.5 mg PO TID PRN; Protocol PRN Reason: agitation/psychosis Trazodone HCl (Desyrel) 50 mg PO HS [facility] Last Admin: 11/30/16 22:00 Dose: Not Given Ziprasidone (Geodon Inj) 10 mg IM Q6 PRN; Protocol PRN Reason: Agitation - Labs Labs: 11/30/16 05:05 11/28/16 06:10 PT 11.6 Seconds (9.9-11.8) 11/25/16 03:00 INR 1.07 (0.93-1.08) 11/25/16 03:00 APTT 24.2 Seconds (23.7-30.8) 11/25/16 03:00
--- NOTE | 2016-12-01 11:45 | CP.PCM.PN ---
Subjective - Date & Time of Evaluation Date of Evaluation: 12/01/16 Time of Evaluation: 08:30 - Subjective Subjective: Complains of Back Pain.Lying Flat in Bed. Objective - Vital Signs/Intake and Output Vital Signs (last 24 hours): Temp Pulse Resp BP Pulse Ox 97.7 F 91 H 20 135/78 99 12/01/16 08:07 12/01/16 08:07 12/01/16 08:07 12/01/16 08:07 12/01/16 08:07 - Medications Medications: Current Medications Albuterol/Ipratropium (Duoneb 3 Mg/0.5 Mg (3 Ml) Ud) 3 ml IH [id number] PRN PRN Reason: Shortness of Breath Aspirin (Aspirin Chewable) 81 mg PO DAILY [facility] Last Admin: 12/01/16 09:28 Dose: Not Given Atorvastatin Calcium (Lipitor) 20 mg PO DIN [facility] Last Admin: 11/30/16 17:57 Dose: Not Given Clopidogrel Bisulfate (Plavix) 75 mg PO DAILY [facility] Last Admin: 12/01/16 09:30 Dose: Not Given Docusate Sodium (Colace) 100 mg PO DAILY [facility] Last Admin: 12/01/16 09:28 Dose: Not Given Furosemide (Lasix) 20 mg PO BID [facility] Last Admin: 12/01/16 09:29 Dose: Not Given Heparin Sodium (Porcine) (Heparin) 5,000 units SC Q12 [facility] PRN Reason: Protocol Last Admin: 11/28/16 21:28 Dose: Not Given Hydromorphone HCl (Dilaudid) 0.5 mg IVP Q6H PRN PRN Reason: pain Last Admin: 12/01/16 09:25 Dose: 0.5 mg Sodium Chloride (Sodium Chloride 0.9%) 1,000 mls @ 75 mls/hr IV .[id number] [facility] Last Admin: 11/30/16 17:58 Dose: Not Given Piperacillin Sod/Tazobactam Sod (Zosyn 3.375 In Ns 100ml) 100 mls @ 200 mls/hr IVPB Q6 [facility] PRN Reason: Protocol Stop: 12/06/16 12:01 Last Admin: 12/01/16 05:55 Dose: 200 mls/hr Insulin Detemir (Levemir) 10 unit SC HS [facility] Last Admin: 11/30/16 22:44 Dose: 10 unit Insulin Human Regular (Humulin R Low) 0 units SC ACHS [facility] PRN Reason: Protocol Last Admin: 12/01/16 08:30 Dose: Not Given Lorazepam (Ativan) 0.5 mg PO TID PRN; Protocol PRN Reason: Anxiety Last Admin: 11/30/16 04:27 Dose: 0.5 mg Metoprolol Tartrate (Lopressor) 25 mg PO BID [facility] Last Admin: 12/01/16 09:30 Dose: Not Given Pantoprazole Sodium (Protonix Ec Tab) 40 mg PO 0600 [facility] Last Admin: 12/01/16 06:03 Dose: Not Given Risperidone (Risperdal Oral Soln) 0.5 mg PO TID PRN; Protocol PRN Reason: agitation/psychosis Trazodone HCl (Desyrel) 50 mg PO HS [facility] Last Admin: 11/30/16 22:00 Dose: Not Given Ziprasidone (Geodon Inj) 10 mg IM Q6 PRN; Protocol PRN Reason: Agitation - Labs Labs: 11/30/16 05:05 11/28/16 06:10 PT 11.6 Seconds (9.9-11.8) 11/25/16 03:00 INR 1.07 (0.93-1.08) 11/25/16 03:00 APTT 24.2 Seconds (23.7-30.8) 11/25/16 03:00 - Constitutional Appears: Well - Head Exam Head Exam: NORMOCEPHALIC - Eye Exam Additional comments: Conjunctiva Slightly Pale. - ENT Exam ENT Exam: Mucous Membranes Moist, Normal Exam - Neck Exam Neck Exam: Full ROM, Normal Inspection. absent: Lymphadenopathy - Respiratory Exam Respiratory Exam: Clear to Ausculation Bilateral, NORMAL BREATHING PATTERN - Cardiovascular Exam Cardiovascular Exam: REGULAR RHYTHM, +S1, +S2 - GI/Abdominal Exam GI & Abdominal Exam: Soft, Normal Bowel Sounds. absent: Tenderness Assessment and Plan - Assessment and Plan (Free Text) Assessment: Back Pain. CAD h/o Two Stents in Past.H/O CA Lung. H/O CA Uterus, Anaemia, Spinal Stenosis, Bipolar Disorder. Plan: Analgesics, Heparin,Metoprolol, Plavix. Clinically no Anginal Symptoms.
--- NOTE | 2016-12-01 11:45 | CP.PCM.PN ---
Subjective - Date & Time of Evaluation Date of Evaluation: 12/01/16 Time of Evaluation: 10:45 - Subjective Subjective: Patient would still intermittently refuse antibiotics. No fevers overnight. Objective - Vital Signs/Intake and Output Vital Signs (last 24 hours): Temp Pulse Resp BP Pulse Ox 97.7 F 91 H 20 135/78 99 12/01/16 08:07 12/01/16 08:07 12/01/16 08:07 12/01/16 08:07 12/01/16 08:07 - Medications Medications: Current Medications Albuterol/Ipratropium (Duoneb 3 Mg/0.5 Mg (3 Ml) Ud) 3 ml IH [id number] PRN PRN Reason: Shortness of Breath Aspirin (Aspirin Chewable) 81 mg PO DAILY [facility] Last Admin: 12/01/16 09:28 Dose: Not Given Atorvastatin Calcium (Lipitor) 20 mg PO DIN [facility] Last Admin: 11/30/16 17:57 Dose: Not Given Clopidogrel Bisulfate (Plavix) 75 mg PO DAILY [facility] Last Admin: 12/01/16 09:30 Dose: Not Given Docusate Sodium (Colace) 100 mg PO DAILY [facility] Last Admin: 12/01/16 09:28 Dose: Not Given Furosemide (Lasix) 20 mg PO BID [facility] Last Admin: 12/01/16 09:29 Dose: Not Given Heparin Sodium (Porcine) (Heparin) 5,000 units SC Q12 MIKKI PRN Reason: Protocol Last Admin: 11/28/16 21:28 Dose: Not Given Hydromorphone HCl (Dilaudid) 0.5 mg IVP Q6H PRN PRN Reason: pain Last Admin: 12/01/16 09:25 Dose: 0.5 mg Sodium Chloride (Sodium Chloride 0.9%) 1,000 mls @ 75 mls/hr IV .[id number] [facility] Last Admin: 11/30/16 17:58 Dose: Not Given Piperacillin Sod/Tazobactam Sod (Zosyn 3.375 In Ns 100ml) 100 mls @ 200 mls/hr IVPB Q6 [facility]KKI PRN Reason: Protocol Stop: 12/06/16 12:01 Last Admin: 12/01/16 05:55 Dose: 200 mls/hr Insulin Detemir (Levemir) 10 unit SC HS [facility] Last Admin: 11/30/16 22:44 Dose: 10 unit Insulin Human Regular (Humulin R Low) 0 units SC ACHS MIKKI PRN Reason: Protocol Last Admin: 12/01/16 08:30 Dose: Not Given Linezolid (Zyvox) 600 mg PO BID [facility] PRN Reason: Protocol Stop: 12/29/16 18:01 Lorazepam (Ativan) 0.5 mg PO TID PRN; Protocol PRN Reason: Anxiety Last Admin: 11/30/16 04:27 Dose: 0.5 mg Metoprolol Tartrate (Lopressor) 25 mg PO BID [facility] Last Admin: 12/01/16 09:30 Dose: Not Given Pantoprazole Sodium (Protonix Ec Tab) 40 mg PO 0600 [facility] Last Admin: 12/01/16 06:03 Dose: Not Given Risperidone (Risperdal Oral Soln) 0.5 mg PO TID PRN; Protocol PRN Reason: agitation/psychosis Trazodone HCl (Desyrel) 50 mg PO HS [facility] Last Admin: 11/30/16 22:00 Dose: Not Given Ziprasidone (Geodon Inj) 10 mg IM Q6 PRN; Protocol PRN Reason: Agitation - Labs Labs: 11/30/16 05:05 11/28/16 06:10 PT 11.6 Seconds (9.9-11.8) 11/25/16 03:00 INR 1.07 (0.93-1.08) 11/25/16 03:00 APTT 24.2 Seconds (23.7-30.8) 11/25/16 03:00 - Constitutional Appears: Non-toxic, No Acute Distress - Head Exam Head Exam: NORMAL INSPECTION - ENT Exam ENT Exam: Mucous Membranes Moist - Neck Exam Neck Exam: absent: Lymphadenopathy, Meningismus - Respiratory Exam Respiratory Exam: Decreased Breath Sounds - Cardiovascular Exam Cardiovascular Exam: +S1, +S2 - GI/Abdominal Exam GI & Abdominal Exam: Soft. absent: Tenderness - Extremities Exam Additional comments: left foot with dressings in place Assessment and Plan - Assessment and Plan (Free Text) Plan: Assessment Probable left foot osteomyelitis (was on antibiotics prior to admission), growing staph aureus and multidrug resistant Proteus only sensitive to Zosyn and MRSA S/P left PICC line placement dyslipidemia DM HTN history of cholecystitis chronic renal failure history of uterine cancer CAD history of depression history of DVT Plan continue Zosyn and add Zyvox; reviewed Podiatry evaluation and old medical records (patient apparently had a sample of the bone from the heel removed but no cultures seen on the medical records) will follow clinically while the patient is in the hospital; patient should have 4-6 weeks of Zosyn with weekly ESR, CRP, CBC, CMP and 3-4 more weeks of Zyvox explained to patient she needs to take antibiotics otherwise she may lose the foot or worse lead to
--- NOTE | 2016-12-01 12:13 | CP.PCM.PN ---
<Andree Mcdonough - Last Filed: 12/01/16 12:35> Subjective - Date & Time of Evaluation Date of Evaluation: 12/01/16 Time of Evaluation: 11:53 - Subjective Subjective: 51 year old female was seen at bedside regarding left heel ulcer. She states that she has pain to her left heel. She does not have any offloading boots to her LE b/l. She denies any n/v/f/c/sob/cp. Objective - Vital Signs/Intake and Output Vital Signs (last 24 hours): Temp Pulse Resp BP Pulse Ox 97.7 F 91 H 20 135/78 99 12/01/16 08:07 12/01/16 08:07 12/01/16 08:07 12/01/16 08:07 12/01/16 08:07 - Medications Medications: Current Medications Albuterol/Ipratropium (Duoneb 3 Mg/0.5 Mg (3 Ml) Ud) 3 ml IH [id number] PRN PRN Reason: Shortness of Breath Aspirin (Aspirin Chewable) 81 mg PO DAILY [facility] Last Admin: 12/01/16 09:28 Dose: Not Given Atorvastatin Calcium (Lipitor) 20 mg PO DIN [facility] Last Admin: 11/30/16 17:57 Dose: Not Given Clopidogrel Bisulfate (Plavix) 75 mg PO DAILY [facility] Last Admin: 12/01/16 09:30 Dose: Not Given Docusate Sodium (Colace) 100 mg PO DAILY [facility] Last Admin: 12/01/16 09:28 Dose: Not Given Furosemide (Lasix) 20 mg PO BID [facility] Last Admin: 12/01/16 09:29 Dose: Not Given Heparin Sodium (Porcine) (Heparin) 5,000 units SC Q12 [facility]KKI PRN Reason: Protocol Last Admin: 11/28/16 21:28 Dose: Not Given Hydromorphone HCl (Dilaudid) 0.5 mg IVP Q6H PRN PRN Reason: pain Last Admin: 12/01/16 09:25 Dose: 0.5 mg Sodium Chloride (Sodium Chloride 0.9%) 1,000 mls @ 75 mls/hr IV .[id number] [facility] Last Admin: 11/30/16 17:58 Dose: Not Given Piperacillin Sod/Tazobactam Sod (Zosyn 3.375 In Ns 100ml) 100 mls @ 200 mls/hr IVPB Q6 [facility] PRN Reason: Protocol Stop: 12/06/16 12:01 Last Admin: 12/01/16 05:55 Dose: 200 mls/hr Insulin Detemir (Levemir) 10 unit SC [facility] Last Admin: 11/30/16 22:44 Dose: 10 unit Insulin Human Regular (Humulin R Low) 0 units SC [facility] PRN Reason: Protocol Last Admin: 12/01/16 08:30 Dose: Not Given Linezolid (Zyvox) 600 mg PO BID [facility] PRN Reason: Protocol Stop: 12/29/16 18:01 Lorazepam (Ativan) 0.5 mg PO TID PRN; Protocol PRN Reason: Anxiety Last Admin: 11/30/16 04:27 Dose: 0.5 mg Metoprolol Tartrate (Lopressor) 25 mg PO BID [facility] Last Admin: 12/01/16 09:30 Dose: Not Given Pantoprazole Sodium (Protonix Ec Tab) 40 mg PO 0600 [facility] Last Admin: 12/01/16 06:03 Dose: Not Given Risperidone (Risperdal Oral Soln) 0.5 mg PO TID PRN; Protocol PRN Reason: agitation/psychosis Trazodone HCl (Desyrel) 50 [address] [facility] Last Admin: 11/30/16 22:00 Dose: Not Given Ziprasidone (Geodon Inj) 10 mg IM Q6 PRN; Protocol PRN Reason: Agitation - Labs Labs: 11/30/16 05:05 11/28/16 06:10 PT 11.6 Seconds (9.9-11.8) 11/25/16 03:00 INR 1.07 (0.93-1.08) 11/25/16 03:00 APTT 24.2 Seconds (23.7-30.8) 11/25/16 03:00 - Constitutional Appears: Chronically Ill - Extremities Exam Additional comments: Left lower extremity focused exam: Vasc: DP and PT pulses noted. CFT < 3 seconds to digits x5. Skin temperature warm to cool from proximal to distal Derm: Ulceration noted to the left heel measuring approximately 4 cm by 4 cm by 0.4 cm with exposed bone,no abscess noted, no necrotic tissue noted, scant amount of sanginous drainage noted, edema noted to the maren-wound area. Sutures noted to the proximal aspect of ulcer to left heel Ortho: Tenderness to palpation of the left heel Neuro: Gross sensation diminished Assessment and Plan - Assessment and Plan (Free Text) Assessment: 51 year old female with ulceration to left heel with exposed bone and osteomylitis Plan: patient examined and evaluated with attending, Dr. Brady chart, labs, vitals reviewed;afebrile wound culture-staph aureus continue IV abx per ID left heel cleansed with normal sterile saline left heel dressed with vaseline gauze dressing,4x4 gauze, ABD, kerlix offloading boots to be applied to LE b/l at all times while in bed Stable for d/c to [facility] for ultrasound supervisor abx <Sheridan Brady - Last Filed: 12/07/16 17:18> Objective - Vital Signs/Intake and Output Vital Signs (last 24 hours): Temp Pulse Resp BP Pulse Ox 98.7 F 80 15 243/144 H 100 12/07/16 16:00 12/07/16 16:00 12/07/16 16:00 12/07/16 16:00 12/07/16 16:00 Intake and Output: 12/07/16 12/07/16 06:59 18:59 Intake Total 240 Balance 240 - Medications Medications: Current Medications Albuterol/Ipratropium (Duoneb 3 Mg/0.5 Mg (3 Ml) Ud) 3 ml IH [id number] PRN PRN Reason: Shortness of Breath Aspirin (Aspirin Chewable) 81 mg PO DAILY [facility] Last Admin: 12/07/16 09:15 Dose: 81 mg Atorvastatin Calcium (Lipitor) 20 mg PO DIN [facility] Last Admin: 12/06/16 17:43 Dose: Not Given Clopidogrel Bisulfate (Plavix) 75 mg PO DAILY [facility] Last Admin: 12/07/16 09:14 Dose: 75 mg Docusate Sodium (Colace) 100 mg PO BID [facility] Heparin Sodium (Porcine) (Heparin) 5,000 units SC Q12 [facility]I PRN Reason: Protocol Last Admin: 11/28/16 21:28 Dose: Not Given Hydralazine HCl (Apresoline) 10 mg IVP Q6 PRN PRN Reason: Systolic Blood Pressure Hydromorphone HCl (Dilaudid) 0.5 mg IVP Q6H PRN PRN Reason: Pain, severe (8-10) Last Admin: 12/07/16 12:40 Dose: 0.5 mg Piperacillin Sod/Tazobactam Sod (Zosyn 3.375 In Ns 100ml) 100 mls @ 200 mls/hr IVPB Q6 [facility]I PRN Reason: Protocol Stop: 12/27/16 12:01 Last Admin: 12/07/16 12:12 Dose: 200 mls/hr Insulin Detemir (Levemir) 12 unit SC HS [facility] Last Admin: 12/06/16 22:41 Dose: Not Given Insulin Human Regular (Humulin R Low) 0 units SC ACHS [facility] PRN Reason: Protocol Last Admin: 12/07/16 12:12 Dose: 3 units Linezolid (Zyvox) 600 mg PO BID [facility] PRN Reason: Protocol Stop: 12/29/16 18:01 Last Admin: 12/07/16 09:14 Dose: 600 mg Lorazepam (Ativan) 0.5 mg PO TID PRN; Protocol PRN Reason: Anxiety Last Admin: 12/04/16 21:12 Dose: 0.5 mg Metoclopramide HCl (Reglan) 5 mg IVP [facility] Metoprolol Tartrate (Lopressor) 25 mg PO BID [facility] Last Admin: 12/07/16 09:16 Dose: 25 mg Morphine Sulfate (Morphine Extended Release Tab) 30 mg PO Q12 [facility] Last Admin: 12/07/16 09:16 Dose: 30 mg Olanzapine (Zyprexa Zydis) 5 mg PO HS [facility] PRN Reason: Protocol Last Admin: 12/06/16 22:41 Dose: Not Given Ondansetron HCl (Zofran Inj) 4 mg IVP Q4 PRN PRN Reason: Nausea/Vomiting Pantoprazole Sodium (Protonix Ec Tab) 40 mg PO 0600 [facility] Last Admin: 12/07/16 06:26 Dose: Not Given Polyethylene Glycol (Miralax) 17 gm PO DAILY PRN PRN Reason: Constipation Last Admin: 12/07/16 15:12 Dose: 17 gm Trazodone HCl (Desyrel) 50 mg PO HS [facility] Last Admin: 12/06/16 22:41 Dose: Not Given Ziprasidone (Geodon Inj) 20 mg IM Q6 PRN; Protocol PRN Reason: Agitation - Labs Labs: 12/03/16 18:45 12/07/16 06:30 PT 11.6 Seconds (9.9-11.8) 11/25/16 03:00 INR 1.07 (0.93-1.08) 11/25/16 03:00 APTT 24.2 Seconds (23.7-30.8) 11/25/16 03:00 Attending/Attestation - Attestation I have personally seen and examined this patient.: Yes I have fully participated in the care of the patient.: Yes I have reviewed all pertinent clinical information, including history, physical exam and plan: Yes
--- NOTE | 2016-12-01 15:13 | CP.PCM.PN ---
<TRES ARTHUR - Last Filed: 12/01/16 16:14> Subjective - Date & Time of Evaluation Date of Evaluation: 12/01/16 Time of Evaluation: 09:00 - Subjective Subjective: Medicine Progress Note: Patient seen and examined at bedside. . Patient is resting in bed. Patient was again thoroughly educated on the importance of antibiotics for treatment of her foot infection as well as all of her other recommended pharmacotherapy. Denies fever, chills, chest pain, SOB, abdominal pain, N/V or diarrhea. Objective - Vital Signs/Intake and Output Vital Signs (last 24 hours): Temp Pulse Resp BP Pulse Ox 97.7 F 91 H 20 135/78 99 12/01/16 08:07 12/01/16 08:07 12/01/16 08:07 12/01/16 08:07 12/01/16 08:07 Intake and Output: 12/01/16 12/01/16 06:59 18:59 Intake Total 620 Balance 620 - Medications Medications: Current Medications Albuterol/Ipratropium (Duoneb 3 Mg/0.5 Mg (3 Ml) Ud) 3 ml IH [id number] PRN PRN Reason: Shortness of Breath Aspirin (Aspirin Chewable) 81 mg PO DAILY [facility] Last Admin: 12/01/16 09:28 Dose: Not Given Atorvastatin Calcium (Lipitor) 20 mg PO DIN [facility] Last Admin: 11/30/16 17:57 Dose: Not Given Clopidogrel Bisulfate (Plavix) 75 mg PO DAILY [facility] Last Admin: 12/01/16 09:30 Dose: Not Given Docusate Sodium (Colace) 100 mg PO DAILY [facility] Last Admin: 12/01/16 09:28 Dose: Not Given Furosemide (Lasix) 20 mg PO BID [facility] Last Admin: 12/01/16 09:29 Dose: Not Given Heparin Sodium (Porcine) (Heparin) 5,000 units SC Q12 [facility]KKI PRN Reason: Protocol Last Admin: 11/28/16 21:28 Dose: Not Given Hydromorphone HCl (Dilaudid) 0.5 mg IVP Q6H PRN PRN Reason: pain Last Admin: 12/01/16 14:57 Dose: 0.5 mg Sodium Chloride (Sodium Chloride 0.9%) 1,000 mls @ 75 mls/hr IV .[id number] [facility] Last Admin: 11/30/16 17:58 Dose: Not Given Piperacillin Sod/Tazobactam Sod (Zosyn 3.375 In Ns 100ml) 100 mls @ 200 mls/hr IVPB Q6 [facility] PRN Reason: Protocol Stop: 12/06/16 12:01 Last Admin: 12/01/16 05:55 Dose: 200 mls/hr Insulin Detemir (Levemir) 10 unit SC HS [facility] Last Admin: 11/30/16 22:44 Dose: 10 unit Insulin Human Regular (Humulin R Low) 0 units SC ACHS [facility] PRN Reason: Protocol Last Admin: 12/01/16 08:30 Dose: Not Given Linezolid (Zyvox) 600 mg PO BID [facility] PRN Reason: Protocol Stop: 12/29/16 18:01 Lorazepam (Ativan) 0.5 mg PO TID PRN; Protocol PRN Reason: Anxiety Last Admin: 11/30/16 04:27 Dose: 0.5 mg Metoprolol Tartrate (Lopressor) 25 mg PO BID [facility] Last Admin: 12/01/16 09:30 Dose: Not Given Morphine Sulfate (Morphine Extended Release Tab) 30 mg PO Q12 [facility] Pantoprazole Sodium (Protonix Ec Tab) 40 mg PO 0600 [facility] Last Admin: 12/01/16 06:03 Dose: Not Given Risperidone (Risperdal Oral Soln) 0.5 mg PO TID PRN; Protocol PRN Reason: agitation/psychosis Trazodone HCl (Desyrel) 50 mg PO [facility] Last Admin: 11/30/16 22:00 Dose: Not Given Ziprasidone (Geodon Inj) 10 mg IM Q6 PRN; Protocol PRN Reason: Agitation - Labs Labs: 11/30/16 05:05 11/28/16 06:10 PT 11.6 Seconds (9.9-11.8) 11/25/16 03:00 INR 1.07 (0.93-1.08) 11/25/16 03:00 APTT 24.2 Seconds (23.7-30.8) 11/25/16 03:00 - Constitutional Appears: No Acute Distress - Head Exam Head Exam: NORMAL INSPECTION, NORMOCEPHALIC - Eye Exam Eye Exam: Normal appearance - ENT Exam ENT Exam: Mucous Membranes Moist, Normal Exam - Neck Exam Neck Exam: Full ROM - Respiratory Exam Respiratory Exam: Clear to Ausculation Bilateral. absent: Rales, Rhonchi, Wheezes - Cardiovascular Exam Cardiovascular Exam: REGULAR RHYTHM, RRR, +S1, +S2 - GI/Abdominal Exam GI & Abdominal Exam: absent: Tenderness - Extremities Exam Extremities Exam: absent: Calf Tenderness, Pedal Edema - Neurological Exam Neurological Exam: Alert, Awake, Oriented x3 - Psychiatric Exam Psychiatric exam: Agitated - Skin Skin Exam: Dry, Intact, Normal Color, Warm Assessment and Plan - Assessment and Plan (Free Text) Assessment: Patient is a 51 yo female with a past medical history of NJ, hyperlipidemia, diabetes, HTN, CKD, asthma, DVT, uterine cancer, lung cancer and thromboembolic disease S/P left heel osteo debridement who was admitted for evaluation and treatment of chest pain and left heel pain. Plan: 1. S/P Left heel ulcer debridement/osteomyelitis - Zosyn and Zyvox ID- patient encouraged to resume antibiotic regiment -pain control with PO morphine and IV dilaudid -wound cultures have grown MRSA and amikacin sensitive proteus mirabilis -patient should have 4-6 weeks of Zosyn and 3-4 weeks of Zyvox with weekly ESR, CRP, CBC, CMP as per ID -blood cultures negative -PICC line replaced to ensure adequate prison use for IV antibiotics -pt is continues to refuse PT/OT -podiatry and wound care on board- recs include Wound dressed with xeroform, ABD and kirlix; patient to continue NWB at this time -SW/case management working on acute care placement 2. Chronic Pancreatitis -patient currently refusing insulin -pain control with morphine and dilaudid -heart healthy diet with low fat 3. Thyroid Nodule -TSH wnl -asymptomatic at this time 4. Vision Changes -optho consulted and agreed to see as outpatient 5. Agitation -PRN Geodon, PRN Risperidone and PRN Ativan added 6. Atypical chest pain/ACS rule out -TSH and lipid panel WNL -continue aspirin, lipitor, plavix, lasix, lopressor -three troponins negative 7. Elevated d-dimer/history of cancer and thromboembolic disease -V/Q scan negative -LE venous doppler showed no DVT's 8. Anemia -Iron studies within normal limits -B12 and Folate WNL -continuing to monitor with daily CBC's 9. Asthma -Duoneb q4 PRN 10. GI/DVT prophylaxis -protonix - stop heparin, replaced with SCD 11. Medication Noncompliance - patient education provided 12. Patient Reports History of Heart and Uterine Cancer - no written record or means of attaining written record were provided by patient despite multiple inquiries - noncontrast CT of chest/abdomen/ pelvis showed no acute disease processes in heart or lungs Patient seen and case discussed with attending physician, Dr. Poe. <Matthew Poe - Last Filed: 12/01/16 17:54> Objective - Vital Signs/Intake and Output Vital Signs (last 24 hours): Temp Pulse Resp BP Pulse Ox 97.7 F 91 H 20 135/78 99 12/01/16 08:07 12/01/16 08:07 12/01/16 08:07 12/01/16 08:07 12/01/16 08:07 Intake and Output: 12/01/16 12/01/16 06:59 18:59 Intake Total 620 Balance 620 - Medications Medications: Current Medications Albuterol/Ipratropium (Duoneb 3 Mg/0.5 Mg (3 Ml) Ud) 3 ml IH [id number] PRN PRN Reason: Shortness of Breath Aspirin (Aspirin Chewable) 81 mg PO DAILY [facility] Last Admin: 12/01/16 09:28 Dose: Not Given Atorvastatin Calcium (Lipitor) 20 mg PO DIN [facility] Last Admin: 11/30/16 17:57 Dose: Not Given Clopidogrel Bisulfate (Plavix) 75 mg PO DAILY [facility] Last Admin: 12/01/16 09:30 Dose: Not Given Docusate Sodium (Colace) 100 mg PO DAILY [facility] Last Admin: 12/01/16 09:28 Dose: Not Given Furosemide (Lasix) 20 mg PO BID [facility] Last Admin: 12/01/16 09:29 Dose: Not Given Heparin Sodium (Porcine) (Heparin) 5,000 units SC Q12 [facility] PRN Reason: Protocol Last Admin: 11/28/16 21:28 Dose: Not Given Hydromorphone HCl (Dilaudid) 0.5 mg IVP Q6H PRN PRN Reason: pain Last Admin: 12/01/16 14:57 Dose: 0.5 mg Sodium Chloride (Sodium Chloride 0.9%) 1,000 mls @ 75 mls/hr IV .[id number] [facility] Last Admin: 11/30/16 17:58 Dose: Not Given Piperacillin Sod/Tazobactam Sod (Zosyn 3.375 In Ns 100ml) 100 mls @ 200 mls/hr IVPB Q6 [facility] PRN Reason: Protocol Stop: 12/06/16 12:01 Last Admin: 12/01/16 05:55 Dose: 200 mls/hr Insulin Detemir (Levemir) 10 unit SC [facility] Last Admin: 11/30/16 22:44 Dose: 10 unit Insulin Human Regular (Humulin R Low) [address] [facility] PRN Reason: Protocol Last Admin: 12/01/16 12:30 Dose: Not Given Linezolid (Zyvox) 600 mg PO BID [facility] PRN Reason: Protocol Stop: 12/29/16 18:01 Lorazepam (Ativan) 0.5 mg PO TID PRN; Protocol PRN Reason: Anxiety Last Admin: 11/30/16 04:27 Dose: 0.5 mg Metoprolol Tartrate (Lopressor) 25 mg PO BID [facility] Last Admin: 12/01/16 09:30 Dose: Not Given Morphine Sulfate (Morphine Extended Release Tab) 30 mg PO Q12 [facility] Pantoprazole Sodium (Protonix Ec Tab) 40 mg PO 0600 [facility] Last Admin: 12/01/16 06:03 Dose: Not Given Risperidone (Risperdal Oral Soln) 0.5 mg PO TID PRN; Protocol PRN Reason: agitation/psychosis Trazodone HCl (Desyrel) 50 mg PO [facility] Last Admin: 11/30/16 22:00 Dose: Not Given Ziprasidone (Geodon Inj) 10 mg IM Q6 PRN; Protocol PRN Reason: Agitation - Labs Labs: 11/30/16 05:05 11/28/16 06:10 PT 11.6 Seconds (9.9-11.8) 11/25/16 03:00 INR 1.07 (0.93-1.08) 11/25/16 03:00 APTT 24.2 Seconds (23.7-30.8) 11/25/16 03:00 Attending/Attestation - Attestation I have personally seen and examined this patient.: Yes I have fully participated in the care of the patient.: Yes I have reviewed all pertinent clinical information, including history, physical exam and plan: Yes Notes (Text): 12/01/16 17:49 51 year old female with past medical history of [place], diabetes, hypertension, ? history of uterine and lung cancer (patient is poor historian), chronic left heel ulcer and ?OM who was recently discharged to [facility] on iv antibiotics who presented with complaint of chest pain. D-dimer was elevated however VQ scan and LE doppler is negative. Serial cardiac enzymes were negative and ACS was ruled out. Cardiology is following and she is on aspirin, plavix, statin and lopressor. She refused echocardiogram. Prior recent medical records from [facility] were reviewed. Wound culture is growing Proteus Mirabilis and Staph Aureus. Continue with iv antibiotics as per ID and wound care as per podiatry for chronic left heel ulcer. Patient also has CKD and anemia (possibly from anemia of chronic disease) which we will continue to monitor. However patient is intermittently refusing labs. She is on levemir and insulin ss for diabetes. She is intermittently refusing fingersticks. She complains of poor vision over the past few weeks-months and ophthalmology evaluation was requested. Patient continues to be refusing labs, iv antibiotics, fluids and medications as she have for the past few days. She is only requesting iv dilaudid but refusing all other medications. She states she is in pain because of her lung/ heart/uterus cancer. However CT chest/abdomen/pelvis was obtained which showed chronic pancreatitis and ?fibroid uterus. She is overall a poor and unreliable historian. Psychiatry is following. Case was also discussed with social work lecturer today if more information can be obtained from her prior hospitalization as her only listed number is an non-working number. Again she is encouraged to take her medications. Risks of medication noncompliance were explained to the patient. Matthew Poe MD Hospitalist.
[2016-12-01 18:50] LABS: ADD MANUAL DIFF? NO
[2016-12-01 18:53] LABS: BASO # 0.03 K/mm3 (0.0-2.0); BASO % 0.5 % (0.0-3.0); EOS # 0.3 (0.0-0.7); EOS % 4.2 % (1.5-5.0); GRAN # 4.06 (1.4-6.5); GRAN % 62.3 % (50.0-68.0); HEMATOCRIT 30.2 % (36.0-48.0); LYMPH # 1.7 (1.2-3.4); LYMPH % 26.5 % (22.0-35.0); MEAN CELL VOLUME 79.1 fL (80.0-105.0); MEAN CORPUSCULAR HEMOGLOBIN 26.2 pg (25.0-35.0); MEAN CORPUSCULAR HGB CONC 33.1 g/dl (31.0-37.0); MEAN PLATELET VOLUME 9.8 fl (7.0-11.0); MONO # 0.4 (0.1-0.6); MONO % 6.5 % (1.0-6.0); PLATELET COUNT 249 10^3/uL (120.0-450.0); RED CELL DISTRIBUTION WIDTH 16.1 % (11.5-14.5); WHITE BLOOD COUNT 6.5 10^3/ul (4.5-11.0)
[2016-12-01] MEDS: Sodium Chloride 0.9% 1,000 ML IV SCH (19:02)
[2016-12-01] MEDS: Insulin Detemir 100 units/ml Vial (Levemir) SC SCH ×2 (21:27→22:37)
[2016-12-02] MEDS: HYDROmorphone 0.5 mg/0.5 ml ISec IVP PRN ×3 (03:28→18:39)
[2016-12-02] MEDS: Sodium Chloride 0.9% 1,000 ML IV SCH (04:53)
[2016-12-02] MEDS: Piperacillin/Tazobact 3.375 gm 100 ML IVPB SCH ×3 (05:20→17:53)
[2016-12-02 06:12] LABS: BILIRUBIN,TOTAL 0.5 mg/dL (0.2-1.3); POTASSIUM 4.1 mmol/L (3.6-5.0)
[2016-12-02] MEDS: Pantoprazole 40 mg EC Tab PO SCH (06:39)
[2016-12-02] MEDS: Insulin Reg-LOW-Coverage SC SCH ×4 (10:04→16:57)
--- NOTE | 2016-12-02 11:47 | CP.PCM.PN ---
Subjective - Date & Time of Evaluation Date of Evaluation: 12/02/16 Time of Evaluation: 10:00 - Subjective Subjective: feels ok but not happy here and thinking to sign out AMA. Objective - Vital Signs/Intake and Output Vital Signs (last 24 hours): Temp Pulse Resp BP Pulse Ox 97.9 F 94 H 18 138/68 99 12/02/16 07:30 12/02/16 07:30 12/02/16 07:30 12/02/16 07:30 12/02/16 07:30 Intake and Output: 12/02/16 12/02/16 06:59 18:59 Intake Total 480 Balance 480 - Medications Medications: Current Medications Albuterol/Ipratropium (Duoneb 3 Mg/0.5 Mg (3 Ml) Ud) 3 ml IH [id number] PRN PRN Reason: Shortness of Breath Aspirin (Aspirin Chewable) 81 mg PO DAILY [facility] Last Admin: 12/02/16 10:08 Dose: 81 mg Atorvastatin Calcium (Lipitor) 20 mg PO DIN [facility] Last Admin: 12/01/16 19:02 Dose: Not Given Clopidogrel Bisulfate (Plavix) 75 mg PO DAILY [facility] Last Admin: 12/02/16 10:08 Dose: 75 mg Docusate Sodium (Colace) 100 mg PO DAILY [facility] Last Admin: 12/02/16 10:08 Dose: 100 mg Furosemide (Lasix) 20 mg PO BID [facility] Last Admin: 12/02/16 10:04 Dose: Not Given Heparin Sodium (Porcine) (Heparin) 5,000 units SC Q12 [facility] PRN Reason: Protocol Last Admin: 11/28/16 21:28 Dose: Not Given Hydromorphone HCl (Dilaudid) 0.5 mg IVP Q6H PRN PRN Reason: pain Last Admin: 12/02/16 10:15 Dose: 0.5 mg Sodium Chloride (Sodium Chloride 0.9%) 1,000 mls @ 75 mls/hr IV .[id number] [facility] Last Admin: 12/02/16 04:53 Dose: Not Given Piperacillin Sod/Tazobactam Sod (Zosyn 3.375 In Ns 100ml) 100 mls @ 200 mls/hr IVPB Q6 [facility] PRN Reason: Protocol Stop: 12/06/16 12:01 Last Admin: 12/02/16 05:20 Dose: 200 mls/hr Insulin Detemir (Levemir) 10 unit SC HS [facility] Last Admin: 12/01/16 22:37 Dose: Not Given Insulin Human Regular (Humulin R Low) [address] [facility] PRN Reason: Protocol Last Admin: 12/02/16 10:04 Dose: Not Given Linezolid (Zyvox) 600 mg PO BID [facility] PRN Reason: Protocol Stop: 12/29/16 18:01 Last Admin: 12/02/16 10:08 Dose: 600 mg Lorazepam (Ativan) 0.5 mg PO TID PRN; Protocol PRN Reason: Anxiety Last Admin: 12/02/16 01:33 Dose: 0.5 mg Metoprolol Tartrate (Lopressor) 25 mg PO BID [facility] Last Admin: 12/02/16 10:08 Dose: 25 mg Morphine Sulfate (Morphine Extended Release Tab) 30 mg PO Q12 [facility] Last Admin: 12/01/16 21:26 Dose: 30 mg Pantoprazole Sodium (Protonix Ec Tab) 40 mg PO 0600 [facility] Last Admin: 12/02/16 06:39 Dose: 40 mg Risperidone (Risperdal Oral Soln) 0.5 mg PO TID PRN; Protocol PRN Reason: agitation/psychosis Trazodone HCl (Desyrel) 50 mg PO HS [facility] Last Admin: 12/01/16 22:34 Dose: Not Given Ziprasidone (Geodon Inj) 10 mg IM Q6 PRN; Protocol PRN Reason: Agitation - Labs Labs: 12/01/16 18:49 12/02/16 05:30 PT 11.6 Seconds (9.9-11.8) 11/25/16 03:00 INR 1.07 (0.93-1.08) 11/25/16 03:00 APTT 24.2 Seconds (23.7-30.8) 11/25/16 03:00 Assessment and Plan - Assessment and Plan (Free Text) Assessment: Atypical chest pain Hx of CAD S/p Ptca No evidence of ACS Hx of spinal stenosis Hx of Ca col;on Hx of ca uterus Plan: continue current meds no anginal symptoms CV status ok will sign out and Glad to follow PRN, Thx.
[2016-12-02] MEDS: Morphine 30 mg SR Tab PO SCH ×2 (12:08→22:03)
--- NOTE | 2016-12-02 12:09 | CP.PCM.PN ---
<Andree Mcdonough - Last Filed: 12/02/16 12:05> Subjective - Date & Time of Evaluation Date of Evaluation: 12/02/16 Time of Evaluation: 12:05 - Subjective Subjective: 51 year old female was seen at bedside regarding left heel ulcer. Patient NAD. She does not have any offloading boots to her LE b/l, per nurse, she refuses to wear them. Objective - Vital Signs/Intake and Output Vital Signs (last 24 hours): Temp Pulse Resp BP Pulse Ox 97.9 F 94 H 18 138/68 99 12/02/16 07:30 12/02/16 07:30 12/02/16 07:30 12/02/16 07:30 12/02/16 07:30 Intake and Output: 12/02/16 12/02/16 06:59 18:59 Intake Total 480 Balance 480 - Medications Medications: Current Medications Albuterol/Ipratropium (Duoneb 3 Mg/0.5 Mg (3 Ml) Ud) 3 ml IH [id number] PRN PRN Reason: Shortness of Breath Aspirin (Aspirin Chewable) 81 mg PO DAILY [facility] Last Admin: 12/02/16 10:08 Dose: 81 mg Atorvastatin Calcium (Lipitor) 20 mg PO DIN [facility] Last Admin: 12/01/16 19:02 Dose: Not Given Clopidogrel Bisulfate (Plavix) 75 mg PO DAILY [facility] Last Admin: 12/02/16 10:08 Dose: 75 mg Docusate Sodium (Colace) 100 mg PO DAILY [facility] Last Admin: 12/02/16 10:08 Dose: 100 mg Furosemide (Lasix) 20 mg PO BID [facility] Last Admin: 12/02/16 10:04 Dose: Not Given Heparin Sodium (Porcine) (Heparin) 5,000 units SC Q12 [facility] PRN Reason: Protocol Last Admin: 11/28/16 21:28 Dose: Not Given Hydromorphone HCl (Dilaudid) 0.5 mg IVP Q6H PRN PRN Reason: pain Last Admin: 12/02/16 10:15 Dose: 0.5 mg Sodium Chloride (Sodium Chloride 0.9%) 1,000 mls @ 75 mls/hr IV .[id number] [facility] Last Admin: 12/02/16 04:53 Dose: Not Given Piperacillin Sod/Tazobactam Sod (Zosyn 3.375 In Ns 100ml) 100 mls @ 200 mls/hr IVPB Q6 [facility] PRN Reason: Protocol Stop: 12/06/16 12:01 Last Admin: 12/02/16 05:20 Dose: 200 mls/hr Insulin Detemir (Levemir) 10 unit SC HS [facility] Last Admin: 12/01/16 22:37 Dose: Not Given Insulin Human Regular (Humulin R Low) 0 units SC ACHS [facility] PRN Reason: Protocol Last Admin: 12/02/16 10:04 Dose: Not Given Linezolid (Zyvox) 600 mg PO BID [facility] PRN Reason: Protocol Stop: 12/29/16 18:01 Last Admin: 12/02/16 10:08 Dose: 600 mg Lorazepam (Ativan) 0.5 mg PO TID PRN; Protocol PRN Reason: Anxiety Last Admin: 12/02/16 01:33 Dose: 0.5 mg Metoprolol Tartrate (Lopressor) 25 mg PO BID [facility] Last Admin: 12/02/16 10:08 Dose: 25 mg Morphine Sulfate (Morphine Extended Release Tab) 30 mg PO Q12 [facility] Last Admin: 12/01/16 21:26 Dose: 30 mg Pantoprazole Sodium (Protonix Ec Tab) 40 mg PO 0600 [facility] Last Admin: 12/02/16 06:39 Dose: 40 mg Risperidone (Risperdal Oral Soln) 0.5 mg PO TID PRN; Protocol PRN Reason: agitation/psychosis Trazodone HCl (Desyrel) 50 mg PO [facility] Last Admin: 12/01/16 22:34 Dose: Not Given Ziprasidone (Geodon Inj) 10 mg IM Q6 PRN; Protocol PRN Reason: Agitation - Labs Labs: 12/01/16 18:49 12/02/16 05:30 PT 11.6 Seconds (9.9-11.8) 11/25/16 03:00 INR 1.07 (0.93-1.08) 11/25/16 03:00 APTT 24.2 Seconds (23.7-30.8) 11/25/16 03:00 - Constitutional Appears: No Acute Distress - Extremities Exam Additional comments: Left lower extremity focused exam: Vasc: DP and PT pulses noted. CFT < 3 seconds to digits x5. Skin temperature warm to cool from proximal to distal Derm: Ulceration noted to the left heel measuring approximately 4 cm by 4 cm by 0.4 cm with exposed bone, no abscess noted, no necrotic tissue noted, mild amount of sanginous drainage noted, edema noted to the maren-wound area. Sutures noted to the proximal aspect of ulcer to left heel Ortho: Tenderness to palpation of the left heel Neuro: Gross sensation diminished - Neurological Exam Neurological Exam: Awake Assessment and Plan - Assessment and Plan (Free Text) Assessment: 51 year old female with ulceration to left heel with exposed bone and osteomylitis Plan: patient examined and evaluated discussed with attending, Dr. Brady chart, labs, vitals reviewed;afebrile, WBC 6.5 (12/01/16) wound culture-staph aureus continue IV abx per ID left heel cleansed with normal sterile saline left heel dressed with vaseline gauze dressing,4x4 gauze, ABD, kerlix offloading boots to be applied to LE b/l at all times while in bed Stable for d/c to [facility] for assistant terminal manager abx <Sheridan Brady - Last Filed: 12/07/16 17:20> Objective - Vital Signs/Intake and Output Vital Signs (last 24 hours): Temp Pulse Resp BP Pulse Ox 98.7 F 80 15 243/144 H 100 12/07/16 16:00 12/07/16 16:00 12/07/16 16:00 12/07/16 16:00 12/07/16 16:00 Intake and Output: 12/07/16 12/07/16 06:59 18:59 Intake Total 240 Balance 240 - Medications Medications: Current Medications Albuterol/Ipratropium (Duoneb 3 Mg/0.5 Mg (3 Ml) Ud) 3 ml IH [id number] PRN PRN Reason: Shortness of Breath Aspirin (Aspirin Chewable) 81 mg PO DAILY [facility] Last Admin: 12/07/16 09:15 Dose: 81 mg Atorvastatin Calcium (Lipitor) 20 mg PO DIN [facility] Last Admin: 12/06/16 17:43 Dose: Not Given Clopidogrel Bisulfate (Plavix) 75 mg PO DAILY [facility] Last Admin: 12/07/16 09:14 Dose: 75 mg Docusate Sodium (Colace) 100 mg PO BID [facility] Heparin Sodium (Porcine) (Heparin) 5,000 units SC Q12 [facility] PRN Reason: Protocol Last Admin: 11/28/16 21:28 Dose: Not Given Hydralazine HCl (Apresoline) 10 mg IVP Q6 PRN PRN Reason: Systolic Blood Pressure Hydromorphone HCl (Dilaudid) 0.5 mg IVP Q6H PRN PRN Reason: Pain, severe (8-10) Last Admin: 12/07/16 12:40 Dose: 0.5 mg Piperacillin Sod/Tazobactam Sod (Zosyn 3.375 In Ns 100ml) 100 mls @ 200 mls/hr IVPB Q6 [facility] PRN Reason: Protocol Stop: 12/27/16 12:01 Last Admin: 12/07/16 12:12 Dose: 200 mls/hr Insulin Detemir (Levemir) 12 unit SC HS [facility] Last Admin: 12/06/16 22:41 Dose: Not Given Insulin Human Regular (Humulin R Low) 0 units SC ACHS [facility] PRN Reason: Protocol Last Admin: 12/07/16 12:12 Dose: 3 units Linezolid (Zyvox) 600 mg PO BID [facility] PRN Reason: Protocol Stop: 12/29/16 18:01 Last Admin: 12/07/16 09:14 Dose: 600 mg Lorazepam (Ativan) 0.5 mg PO TID PRN; Protocol PRN Reason: Anxiety Last Admin: 12/04/16 21:12 Dose: 0.5 mg Metoclopramide HCl (Reglan) 5 mg IVP ACHS [facility] Metoprolol Tartrate (Lopressor) 25 mg PO BID [facility] Last Admin: 12/07/16 09:16 Dose: 25 mg Morphine Sulfate (Morphine Extended Release Tab) 30 mg PO Q12 [facility] Last Admin: 12/07/16 09:16 Dose: 30 mg Olanzapine (Zyprexa Zydis) 5 mg PO HS [facility] PRN Reason: Protocol Last Admin: 12/06/16 22:41 Dose: Not Given Ondansetron HCl (Zofran Inj) 4 mg IVP Q4 PRN PRN Reason: Nausea/Vomiting Pantoprazole Sodium (Protonix Ec Tab) 40 mg PO 0600 [facility] Last Admin: 12/07/16 06:26 Dose: Not Given Polyethylene Glycol (Miralax) 17 gm PO DAILY PRN PRN Reason: Constipation Last Admin: 12/07/16 15:12 Dose: 17 gm Trazodone HCl (Desyrel) 50 mg PO HS [facility] Last Admin: 12/06/16 22:41 Dose: Not Given Ziprasidone (Geodon Inj) 20 mg IM Q6 PRN; Protocol PRN Reason: Agitation - Labs Labs: 12/03/16 18:45 12/07/16 06:30 PT 11.6 Seconds (9.9-11.8) 11/25/16 03:00 INR 1.07 (0.93-1.08) 11/25/16 03:00 APTT 24.2 Seconds (23.7-30.8) 11/25/16 03:00 Attending/Attestation - Attestation I have personally seen and examined this patient.: Yes I have fully participated in the care of the patient.: Yes I have reviewed all pertinent clinical information, including history, physical exam and plan: Yes
--- NOTE | 2016-12-02 15:58 | CP.PCM.PN ---
<TRES ARTHUR - Last Filed: 12/02/16 16:23> Subjective - Date & Time of Evaluation Date of Evaluation: 12/02/16 Time of Evaluation: 07:30 - Subjective Subjective: Medicine Progress Note: Pt seen and assessed at bedside. Pt currently refusing meals because she "doesn' t have an appetite" and offered no reasoning for refusing many of her medications. Pt verbalized understanding the importance of eating and taking her medications. Pt has no new complaints. Pt denies fever, headache, chest pain , shortness of breath, N/V or diarrhea. Objective - Vital Signs/Intake and Output Vital Signs (last 24 hours): Temp Pulse Resp BP Pulse Ox 97.9 F 94 H 18 138/68 99 12/02/16 07:30 12/02/16 07:30 12/02/16 07:30 12/02/16 07:30 12/02/16 07:30 Intake and Output: 12/02/16 12/02/16 06:59 18:59 Intake Total 480 240 Balance 480 240 - Medications Medications: Current Medications Albuterol/Ipratropium (Duoneb 3 Mg/0.5 Mg (3 Ml) Ud) 3 ml IH [id number] PRN PRN Reason: Shortness of Breath Aspirin (Aspirin Chewable) 81 mg PO DAILY [facility] Last Admin: 12/02/16 10:08 Dose: 81 mg Atorvastatin Calcium (Lipitor) 20 mg PO DIN [facility] Last Admin: 12/01/16 19:02 Dose: Not Given Clopidogrel Bisulfate (Plavix) 75 mg PO DAILY [facility] Last Admin: 12/02/16 10:08 Dose: 75 mg Docusate Sodium (Colace) 100 mg PO DAILY [facility] Last Admin: 12/02/16 10:08 Dose: 100 mg Furosemide (Lasix) 20 mg PO BID [facility] Last Admin: 12/02/16 10:04 Dose: Not Given Heparin Sodium (Porcine) (Heparin) 5,000 units SC Q12 [facility] PRN Reason: Protocol Last Admin: 11/28/16 21:28 Dose: Not Given Hydromorphone HCl (Dilaudid) 0.5 mg IVP Q6H PRN PRN Reason: pain Last Admin: 12/02/16 10:15 Dose: 0.5 mg Sodium Chloride (Sodium Chloride 0.9%) 1,000 mls @ 75 mls/hr IV .[id number] [facility] Last Admin: 12/02/16 04:53 Dose: Not Given Piperacillin Sod/Tazobactam Sod (Zosyn 3.375 In Ns 100ml) 100 mls @ 200 mls/hr IVPB Q6 [facility] PRN Reason: Protocol Stop: 12/06/16 12:01 Last Admin: 12/02/16 13:09 Dose: Not Given Insulin Detemir (Levemir) 10 unit SC [facility] Last Admin: 12/01/16 22:37 Dose: Not Given Insulin Human Regular (Humulin R Low) 0 units SC [facility] PRN Reason: Protocol Last Admin: 12/02/16 12:23 Dose: Not Given Linezolid (Zyvox) 600 mg PO BID [facility] PRN Reason: Protocol Stop: 12/29/16 18:01 Last Admin: 12/02/16 10:08 Dose: 600 mg Lorazepam (Ativan) 0.5 mg PO TID PRN; Protocol PRN Reason: Anxiety Last Admin: 12/02/16 13:21 Dose: 0.5 mg Metoprolol Tartrate (Lopressor) 25 mg PO BID [facility] Last Admin: 12/02/16 10:08 Dose: 25 mg Morphine Sulfate (Morphine Extended Release Tab) 30 mg PO Q12 [facility] Last Admin: 12/02/16 12:08 Dose: 30 mg Pantoprazole Sodium (Protonix Ec Tab) 40 mg PO 0600 [facility] Last Admin: 12/02/16 06:39 Dose: 40 mg Risperidone (Risperdal Oral Soln) 0.5 mg PO TID PRN; Protocol PRN Reason: agitation/psychosis Trazodone HCl (Desyrel) 50 mg PO [facility] Last Admin: 12/01/16 22:34 Dose: Not Given Ziprasidone (Geodon Inj) 10 mg IM Q6 PRN; Protocol PRN Reason: Agitation - Labs Labs: 12/01/16 18:49 12/02/16 05:30 PT 11.6 Seconds (9.9-11.8) 11/25/16 03:00 INR 1.07 (0.93-1.08) 11/25/16 03:00 APTT 24.2 Seconds (23.7-30.8) 11/25/16 03:00 - Constitutional Appears: No Acute Distress - Head Exam Head Exam: NORMAL INSPECTION - Eye Exam Eye Exam: EOMI, Normal appearance - ENT Exam ENT Exam: Mucous Membranes Moist, Normal Exam - Neck Exam Neck Exam: absent: Full ROM - Respiratory Exam Respiratory Exam: Clear to Ausculation Bilateral, NORMAL BREATHING PATTERN. absent: Rales, Rhonchi, Wheezes - Cardiovascular Exam Cardiovascular Exam: REGULAR RHYTHM, +S1, +S2. absent: Murmur - GI/Abdominal Exam GI & Abdominal Exam: absent: Distended - Extremities Exam Extremities Exam: absent: Calf Tenderness, Pedal Edema Additional comments: Left heel wound dressing clean, dry and intact - Neurological Exam Neurological Exam: Alert, Awake, Oriented x3 - Psychiatric Exam Psychiatric exam: Agitated - Skin Skin Exam: Dry, Intact, Normal Color, Warm Assessment and Plan - Assessment and Plan (Free Text) Assessment: Patient is a 51 yo female with a past medical history of DE, hyperlipidemia, diabetes, HTN, CKD, asthma, DVT, uterine cancer, lung cancer and thromboembolic disease S/P left heel osteo debridement who was admitted for evaluation and treatment of chest pain and left heel pain. Plan: 1. S/P Left heel ulcer debridement/osteomyelitis - Zosyn and Zyvox ID- patient encouraged to resume antibiotic regiment -pain control with PO morphine and IV dilaudid -wound cultures have grown MRSA and amikacin sensitive proteus mirabilis -patient should have 4-6 weeks of Zosyn and 3-4 weeks of Zyvox with weekly ESR, CRP, CBC, CMP as per ID -blood cultures negative -PICC line replaced to ensure adequate rodent exterminator use for IV antibiotics -pt continues to refuse PT/OT -pt currently refusing boots -podiatry and wound care on board- recs include Wound dressed with xeroform, ABD and kirlix; patient to continue NWB at this time -SW/case management working on acute care placement 2. Chronic Pancreatitis -patient currently refusing insulin -pain control with morphine and dilaudid -heart healthy diet with low fat -will continue to monitor 3. Thyroid Nodule -TSH wnl -asymptomatic at this time -will continue to monitor 4. Vision Changes -optho consulted and agreed to see as outpatient -will assist pt in scheduling upon d/c 5. Agitation -PRN Geodon, PRN Risperidone and PRN Ativan 6. Anemia -Iron studies within normal limits -B12 and Folate WNL -continuing to monitor with daily CBC's 7. Asthma -Duoneb q4 PRN 8. Medication Noncompliance - patient education provided 9. Patient Reports History of Heart and Uterine Cancer - no written record or means of attaining written record were provided by patient despite multiple inquiries - noncontrast CT of chest/abdomen/ pelvis showed no acute disease processes in heart or lungs 10. GI/DVT prophylaxis -protonix/ SCD Patient seen and case discussed with attending physician, Dr. Manuel. <Jorge Manuel - Last Filed: 12/02/16 18:03> Objective - Vital Signs/Intake and Output Vital Signs (last 24 hours): Temp Pulse Resp BP Pulse Ox 97.9 F 94 H 18 138/68 99 12/02/16 07:30 12/02/16 07:30 12/02/16 07:30 12/02/16 07:30 12/02/16 07:30 Intake and Output: 12/02/16 12/02/16 06:59 18:59 Intake Total 480 240 Balance 480 240 - Medications Medications: Current Medications Albuterol/Ipratropium (Duoneb 3 Mg/0.5 Mg (3 Ml) Ud) 3 ml IH [id number] PRN PRN Reason: Shortness of Breath Aspirin (Aspirin Chewable) 81 mg PO DAILY [facility] Last Admin: 12/02/16 10:08 Dose: 81 mg Atorvastatin Calcium (Lipitor) 20 mg PO DIN [facility] Last Admin: 12/02/16 17:52 Dose: Not Given Clopidogrel Bisulfate (Plavix) 75 mg PO DAILY [facility] Last Admin: 12/02/16 10:08 Dose: 75 mg Docusate Sodium (Colace) 100 mg PO DAILY [facility] Last Admin: 12/02/16 10:08 Dose: 100 mg Furosemide (Lasix) 20 mg PO BID [facility] Last Admin: 12/02/16 17:51 Dose: Not Given Heparin Sodium (Porcine) (Heparin) 5,000 units SC Q12 [facility] PRN Reason: Protocol Last Admin: 11/28/16 21:28 Dose: Not Given Hydromorphone HCl (Dilaudid) 0.5 mg IVP Q6H PRN PRN Reason: pain Last Admin: 12/02/16 10:15 Dose: 0.5 mg Sodium Chloride (Sodium Chloride 0.9%) 1,000 mls @ 75 mls/hr IV .[id number] [facility] Last Admin: 12/02/16 04:53 Dose: Not Given Piperacillin Sod/Tazobactam Sod (Zosyn 3.375 In Ns 100ml) 100 mls @ 200 mls/hr IVPB Q6 [facility] PRN Reason: Protocol Stop: 12/06/16 12:01 Last Admin: 12/02/16 17:53 Dose: Not Given Insulin Detemir (Levemir) 10 unit SC HS [facility] Last Admin: 12/01/16 22:37 Dose: Not Given Insulin Human Regular (Humulin R Low) 0 units SC [facility] PRN Reason: Protocol Last Admin: 12/02/16 16:57 Dose: Not Given Linezolid (Zyvox) 600 mg PO BID [facility] PRN Reason: Protocol Stop: 12/29/16 18:01 Last Admin: 12/02/16 17:53 Dose: Not Given Lorazepam (Ativan) 0.5 mg PO TID PRN; Protocol PRN Reason: Anxiety Last Admin: 12/02/16 13:21 Dose: 0.5 mg Metoprolol Tartrate (Lopressor) 25 mg PO BID [facility] Last Admin: 12/02/16 17:52 Dose: Not Given Morphine Sulfate (Morphine Extended Release Tab) 30 mg PO Q12 [facility] Last Admin: 12/02/16 12:08 Dose: 30 mg Pantoprazole Sodium (Protonix Ec Tab) 40 mg PO 0600 [facility] Last Admin: 12/02/16 06:39 Dose: 40 mg Risperidone (Risperdal Oral Soln) 0.5 mg PO TID PRN; Protocol PRN Reason: agitation/psychosis Trazodone HCl (Desyrel) 50 mg PO [facility] Last Admin: 12/01/16 22:34 Dose: Not Given Ziprasidone (Geodon Inj) 10 mg IM Q6 PRN; Protocol PRN Reason: Agitation - Labs Labs: 12/02/16 16:19 12/02/16 05:30 PT 11.6 Seconds (9.9-11.8) 11/25/16 03:00 INR 1.07 (0.93-1.08) 11/25/16 03:00 APTT 24.2 Seconds (23.7-30.8) 11/25/16 03:00 Attending/Attestation - Attestation I have personally seen and examined this patient.: Yes I have fully participated in the care of the patient.: Yes I have reviewed all pertinent clinical information, including history, physical exam and plan: Yes Notes (Text): 12/02/16 17:58 Attending note; Patient seen and examined with resident. Patient is a 51 year old female with past medical history of DE, diabetes, hypertension, ?history of uterine and lung cancer (patient is poor historian), chronic left heel ulcer and ?OM who was recently discharged to [facility] on iv antibiotics who presented with complaint of chest pain. D-dimer was elevated however VQ scan and LE doppler is negative. Serial cardiac enzymes were negative and ACS was ruled out. Cardiology is following and she is on aspirin, plavix, statin and lopressor. Follow-up with podiatry for chronic left heel ulcer. Dressing changed. Off loading boots ordered. Compliance advised. Patient also has CKD and anemia (possibly from anemia of chronic disease) which we will continue to monitor. She is on levemir and insulin ss for diabetes. Dosage increased. Patient continues to be refusing labs, iv antibiotics, fluids and medications on and off. Patient is alert, awake and oriented. Psychiatric re evaluation requested. She states she is in pain because of her lung/heart/uterus cancer. However CT chest/abdomen/pelvis was obtained which showed chronic pancreatitis and ? fibroid uterus. Again she is encouraged to take her medications. Risks of medication noncompliance were explained to the patient. Case discussed with caser shoe parts and social media marketing analyst for discharge planning. Patient wanted to sign AGAINST MEDICAL ADVICE. We will wait for the family member to visit the patient.
[2016-12-02 16:20] LABS: ADD MANUAL DIFF? NO
[2016-12-02 16:27] LABS: BASO # 0.03 K/mm3 (0.0-2.0); BASO % 0.5 % (0.0-3.0); EOS # 0.3 (0.0-0.7); EOS % 5.3 % (1.5-5.0); GRAN # 2.98 (1.4-6.5); GRAN % 51.1 % (50.0-68.0); HEMATOCRIT 29.9 % (36.0-48.0); LYMPH % 34.9 % (22.0-35.0); MEAN CELL VOLUME 80.6 fL (80.0-105.0); MEAN CORPUSCULAR HEMOGLOBIN 26.7 pg (25.0-35.0); MEAN CORPUSCULAR HGB CONC 33.1 g/dl (31.0-37.0); MEAN PLATELET VOLUME 9.6 fl (7.0-11.0); MONO # 0.5 (0.1-0.6); MONO % 8.2 % (1.0-6.0); PLATELET COUNT 225 10^3/uL (120.0-450.0); RED CELL DISTRIBUTION WIDTH 16.2 % (11.5-14.5); WHITE BLOOD COUNT 5.8 10^3/ul (4.5-11.0)
[2016-12-02] MEDS: Insulin Detemir 100 units/ml Vial (Levemir) SC SCH (22:00)
[2016-12-03] MEDS: HYDROmorphone 0.5 mg/0.5 ml ISec IVP PRN ×4 (00:40→18:30)
[2016-12-03] MEDS: Piperacillin/Tazobact 3.375 gm 100 ML IVPB SCH ×5 (00:40→18:54)
[2016-12-03] MEDS: Pantoprazole 40 mg EC Tab PO SCH (06:00)
[2016-12-03 07:17] LABS: BILIRUBIN,TOTAL 0.5 mg/dL (0.2-1.3); CALCIUM 9.5 mg/dL (8.4-10.5); POTASSIUM 4.2 mmol/L (3.6-5.0); TOTAL PROTEIN 7.8 g/dL (5.8-8.3)
[2016-12-03] MEDS: Insulin Reg-LOW-Coverage SC SCH ×4 (08:33→21:38)
--- NOTE | 2016-12-03 11:17 | CP.PCM.PN ---
Subjective - Date & Time of Evaluation Date of Evaluation: 12/03/16 Time of Evaluation: 08:10 - Subjective Subjective: Patient would still refuse antibiotics on occasion, still complaining of occasional foot pain. No fevers overnight. Objective - Vital Signs/Intake and Output Vital Signs (last 24 hours): Temp Pulse Resp BP Pulse Ox 97.9 F 94 H 18 138/68 99 12/02/16 07:30 12/02/16 07:30 12/02/16 07:30 12/02/16 07:30 12/02/16 07:30 Intake and Output: 12/03/16 12/03/16 06:59 18:59 Intake Total 170 Balance 170 - Medications Medications: Current Medications Albuterol/Ipratropium (Duoneb 3 Mg/0.5 Mg (3 Ml) Ud) 3 ml IH [id number] PRN PRN Reason: Shortness of Breath Aspirin (Aspirin Chewable) 81 mg PO DAILY [facility] Last Admin: 12/02/16 10:08 Dose: 81 mg Atorvastatin Calcium (Lipitor) 20 mg PO DIN [facility] Last Admin: 12/02/16 17:52 Dose: Not Given Clopidogrel Bisulfate (Plavix) 75 mg PO DAILY [facility] Last Admin: 12/02/16 10:08 Dose: 75 mg Docusate Sodium (Colace) 100 mg PO DAILY [facility] Last Admin: 12/02/16 10:08 Dose: 100 mg Furosemide (Lasix) 20 mg PO BID [facility] Last Admin: 12/02/16 17:51 Dose: Not Given Heparin Sodium (Porcine) (Heparin) 5,000 units SC Q12 [facility] PRN Reason: Protocol Last Admin: 11/28/16 21:28 Dose: Not Given Hydromorphone HCl (Dilaudid) 0.5 mg IVP Q6H PRN PRN Reason: pain Last Admin: 12/03/16 06:13 Dose: 0.5 mg Sodium Chloride (Sodium Chloride 0.9%) 1,000 mls @ 75 mls/hr IV .[id number] [facility] Last Admin: 12/02/16 04:53 Dose: Not Given Piperacillin Sod/Tazobactam Sod (Zosyn 3.375 In Ns 100ml) 100 mls @ 200 mls/hr IVPB Q6 [facility] PRN Reason: Protocol Stop: 12/06/16 12:01 Last Admin: 12/03/16 06:14 Dose: 200 mls/hr Insulin Detemir (Levemir) 12 unit SC HS [facility] Last Admin: 12/02/16 22:00 Dose: Not Given Insulin Human Regular (Humulin R Low) 0 units SC ACHS [facility] PRN Reason: Protocol Last Admin: 12/03/16 08:33 Dose: Not Given Linezolid (Zyvox) 600 mg PO BID [facility] PRN Reason: Protocol Stop: 12/29/16 18:01 Last Admin: 12/02/16 17:53 Dose: Not Given Lorazepam (Ativan) 0.5 mg PO TID PRN; Protocol PRN Reason: Anxiety Last Admin: 12/03/16 06:13 Dose: 0.5 mg Metoprolol Tartrate (Lopressor) 25 mg PO BID [facility] Last Admin: 12/02/16 17:52 Dose: Not Given Morphine Sulfate (Morphine Extended Release Tab) 30 mg PO Q12 [facility] Last Admin: 12/02/16 22:03 Dose: 30 mg Pantoprazole Sodium (Protonix Ec Tab) 40 mg PO 0600 [facility] Last Admin: 12/02/16 06:39 Dose: 40 mg Risperidone (Risperdal Oral Soln) 0.5 mg PO TID PRN; Protocol PRN Reason: agitation/psychosis Trazodone HCl (Desyrel) 50 mg PO [facility] Last Admin: 12/03/16 00:18 Dose: Not Given Ziprasidone (Geodon Inj) 10 mg IM Q6 PRN; Protocol PRN Reason: Agitation - Labs Labs: 12/02/16 16:19 12/03/16 06:30 PT 11.6 Seconds (9.9-11.8) 11/25/16 03:00 INR 1.07 (0.93-1.08) 11/25/16 03:00 APTT 24.2 Seconds (23.7-30.8) 11/25/16 03:00 - Constitutional Appears: Non-toxic, No Acute Distress - Head Exam Head Exam: NORMAL INSPECTION - Neck Exam Neck Exam: absent: Meningismus - Respiratory Exam Respiratory Exam: Decreased Breath Sounds - Cardiovascular Exam Cardiovascular Exam: +S1, +S2 - GI/Abdominal Exam GI & Abdominal Exam: Soft. absent: Tenderness Assessment and Plan - Assessment and Plan (Free Text) Plan: Assessment Probable left foot osteomyelitis (was on antibiotics prior to admission), growing staph aureus and multidrug resistant Proteus only sensitive to Zosyn and MRSA S/P left PICC line placement dyslipidemia DM HTN history of cholecystitis chronic renal failure history of uterine cancer CAD history of depression history of DVT Plan continue Zosyn and Zyvox; reviewed Podiatry evaluation and old medical records ( patient apparently had a sample of the bone from the heel removed but no cultures seen on the medical records) will follow clinically while the patient is in the hospital; patient should have 4-6 weeks of Zosyn and Zyvox with weekly ESR, CRP, CBC, CMP explained to patient she needs to take antibiotics otherwise she may lose the foot or worse lead to
[2016-12-03] MEDS: Morphine 30 mg SR Tab PO SCH ×2 (11:25→21:35)
--- NOTE | 2016-12-03 15:19 | CP.PCM.PN ---
<TRES ARTHUR - Last Filed: 12/03/16 15:28> Subjective - Date & Time of Evaluation Date of Evaluation: 12/03/16 Time of Evaluation: 09:35 - Subjective Subjective: Medicine Progress Note: Pt seen and assessed at bedside. Pt continues to refuse most medications, including PO Zyvox and Insulin. Pt states that she isn't taking Zyvox because "it isn't the antibiotic my foot doctor gave me". Pt also refusing to eat food. Pt states that "If I'm not eating I don't need insulin". Pt states that her pain has not alleviated. Pt has no other complaints at this time. Pt denies fever, headache, chills, chest pain, shortness of breath, N/V or diarrhea. Objective - Vital Signs/Intake and Output Vital Signs (last 24 hours): Temp Pulse Resp BP Pulse Ox 97.9 F 94 H 18 138/68 99 12/02/16 07:30 12/02/16 07:30 12/02/16 07:30 12/02/16 07:30 12/02/16 07:30 Intake and Output: 12/03/16 12/03/16 06:59 18:59 Intake Total 170 480 Balance 170 480 - Medications Medications: Current Medications Albuterol/Ipratropium (Duoneb 3 Mg/0.5 Mg (3 Ml) Ud) 3 ml IH [id number] PRN PRN Reason: Shortness of Breath Aspirin (Aspirin Chewable) 81 mg PO DAILY [facility] Last Admin: 12/03/16 11:24 Dose: Not Given Atorvastatin Calcium (Lipitor) 20 mg PO DIN [facility] Last Admin: 12/02/16 17:52 Dose: Not Given Clopidogrel Bisulfate (Plavix) 75 mg PO DAILY [facility] Last Admin: 12/03/16 11:25 Dose: Not Given Docusate Sodium (Colace) 100 mg PO DAILY [facility] Last Admin: 12/03/16 11:24 Dose: Not Given Furosemide (Lasix) 20 mg PO BID [facility] Last Admin: 12/03/16 11:24 Dose: Not Given Heparin Sodium (Porcine) (Heparin) 5,000 units SC Q12 [facility] PRN Reason: Protocol Last Admin: 11/28/16 21:28 Dose: Not Given Hydromorphone HCl (Dilaudid) 0.5 mg IVP Q6H PRN PRN Reason: pain Last Admin: 12/03/16 12:25 Dose: 0.5 mg Sodium Chloride (Sodium Chloride 0.9%) 1,000 mls @ 75 mls/hr IV .[id number] [facility] Last Admin: 12/02/16 04:53 Dose: Not Given Piperacillin Sod/Tazobactam Sod (Zosyn 3.375 In Ns 100ml) 100 mls @ 200 mls/hr IVPB Q6 [facility] PRN Reason: Protocol Stop: 12/06/16 12:01 Last Admin: 12/03/16 12:27 Dose: 200 mls/hr Insulin Detemir (Levemir) 12 unit SC [facility] Last Admin: 12/02/16 22:00 Dose: Not Given Insulin Human Regular (Humulin R Low) 0 units SC [facility] PRN Reason: Protocol Last Admin: 12/03/16 12:26 Dose: Not Given Linezolid (Zyvox) 600 mg PO BID [facility] PRN Reason: Protocol Stop: 12/29/16 18:01 Last Admin: 12/03/16 11:25 Dose: Not Given Lorazepam (Ativan) 0.5 mg PO TID PRN; Protocol PRN Reason: Anxiety Last Admin: 12/03/16 06:13 Dose: 0.5 mg Metoprolol Tartrate (Lopressor) 25 mg PO BID [facility] Last Admin: 12/03/16 11:25 Dose: Not Given Morphine Sulfate (Morphine Extended Release Tab) 30 mg PO Q12 [facility] Last Admin: 12/03/16 11:25 Dose: Not Given Ondansetron HCl (Zofran Inj) 4 mg IVP Q6H PRN PRN Reason: Nausea/Vomiting Pantoprazole Sodium (Protonix Ec Tab) 40 mg PO 0600 [facility] Last Admin: 12/02/16 06:39 Dose: 40 mg Risperidone (Risperdal Oral Soln) 0.5 mg PO TID PRN; Protocol PRN Reason: agitation/psychosis Trazodone HCl (Desyrel) 50 mg PO [facility] Last Admin: 12/03/16 00:18 Dose: Not Given Ziprasidone (Geodon Inj) 10 mg IM Q6 PRN; Protocol PRN Reason: Agitation - Labs Labs: 12/02/16 16:19 12/03/16 06:30 PT 11.6 Seconds (9.9-11.8) 11/25/16 03:00 INR 1.07 (0.93-1.08) 11/25/16 03:00 APTT 24.2 Seconds (23.7-30.8) 11/25/16 03:00 - Constitutional Appears: No Acute Distress - Head Exam Head Exam: NORMAL INSPECTION - Eye Exam Eye Exam: Normal appearance - ENT Exam ENT Exam: Mucous Membranes Moist, Normal Exam - Neck Exam Neck Exam: Full ROM - Respiratory Exam Respiratory Exam: Clear to Ausculation Bilateral, NORMAL BREATHING PATTERN. absent: Rales, Rhonchi, Wheezes, Respiratory Distress - Cardiovascular Exam Cardiovascular Exam: REGULAR RHYTHM, +S1, +S2. absent: Murmur - GI/Abdominal Exam GI & Abdominal Exam: absent: Distended, Guarding - Extremities Exam Extremities Exam: absent: Calf Tenderness, Pedal Edema - Neurological Exam Neurological Exam: Alert, Awake, Normal Gait - Psychiatric Exam Psychiatric exam: Normal Affect, Normal Mood - Skin Skin Exam: Dry, Intact, Normal Color, Warm - Additional Findings Additional findings: R heel dressing clean, dry and intact. PICC line insertion site free of erythema or drainage. Assessment and Plan - Assessment and Plan (Free Text) Assessment: Patient is a 51 yo female with a past medical history of [place], hyperlipidemia, diabetes, HTN, CKD, asthma, DVT, uterine cancer, lung cancer and thromboembolic disease S/P left heel osteo debridement who was admitted for evaluation and treatment of chest pain and left heel pain. Plan: 1. S/P Left heel ulcer debridement/osteomyelitis - Zosyn and Zyvox ID- patient encouraged to stop refusing Zyvox and explained in detail the importance of doing so -pain control with PO morphine and IV dilaudid -wound cultures have grown MRSA and amikacin sensitive proteus mirabilis -patient should have 4-6 weeks of Zosyn and 3-4 weeks of Zyvox with weekly ESR, CRP, CBC, CMP as per ID; would consider PO antibiotics if these trend downward -blood cultures negative -PICC line replaced to ensure adequate manager terminal use for IV antibiotics -pt continues to refuse PT/OT -pt currently refusing boots -podiatry and wound care on board- recs include Wound dressed with xeroform, ABD and kirlix; patient to continue NWB at this time -SW/case management working on acute care placement 2. Chronic Pancreatitis -patient currently refusing insulin -pain control with morphine and dilaudid -heart healthy diet with low fat -will continue to monitor 3. Thyroid Nodule -TSH wnl -asymptomatic at this time -will continue to monitor 4. Vision Changes -optho consulted and agreed to see as outpatient -will assist pt in scheduling upon d/c 5. Agitation -PRN Geodon, PRN Risperidone and PRN Ativan -psychiatry following 6. Anemia -Iron studies within normal limits -B12 and Folate WNL -continuing to monitor with daily CBC's 7. Asthma -Duoneb q4 PRN 8. Medication Noncompliance - patient education provided 9. Patient Reports History of Heart and Uterine Cancer - no written record or means of attaining written record were provided by patient despite multiple inquiries - noncontrast CT of chest/abdomen/ pelvis showed no acute disease processes in heart or lungs 10. GI/DVT prophylaxis -protonix/ SCD Patient seen and case discussed with attending physician, Dr. Manuel. <Jorge Manuel - Last Filed: 12/03/16 17:02> Objective - Vital Signs/Intake and Output Vital Signs (last 24 hours): Temp Pulse Resp BP Pulse Ox 97.9 F 94 H 18 138/68 99 12/02/16 07:30 12/02/16 07:30 12/02/16 07:30 12/02/16 07:30 12/02/16 07:30 Intake and Output: 12/03/16 12/03/16 06:59 18:59 Intake Total 170 480 Balance 170 480 - Medications Medications: Current Medications Albuterol/Ipratropium (Duoneb 3 Mg/0.5 Mg (3 Ml) Ud) 3 ml IH [id number] PRN PRN Reason: Shortness of Breath Aspirin (Aspirin Chewable) 81 mg PO DAILY [facility] Last Admin: 12/03/16 11:24 Dose: Not Given Atorvastatin Calcium (Lipitor) 20 mg PO DIN [facility] Last Admin: 12/02/16 17:52 Dose: Not Given Clopidogrel Bisulfate (Plavix) 75 mg PO DAILY [facility] Last Admin: 12/03/16 11:25 Dose: Not Given Docusate Sodium (Colace) 100 mg PO DAILY [facility] Last Admin: 12/03/16 11:24 Dose: Not Given Furosemide (Lasix) 20 mg PO BID [facility] Last Admin: 12/03/16 11:24 Dose: Not Given Heparin Sodium (Porcine) (Heparin) 5,000 units SC Q12 [facility] PRN Reason: Protocol Last Admin: 11/28/16 21:28 Dose: Not Given Hydromorphone HCl (Dilaudid) 0.5 mg IVP Q6H PRN PRN Reason: pain Last Admin: 12/03/16 12:25 Dose: 0.5 mg Sodium Chloride (Sodium Chloride 0.9%) 1,000 mls @ 75 mls/hr IV .[id number] [facility] Last Admin: 12/02/16 04:53 Dose: Not Given Piperacillin Sod/Tazobactam Sod (Zosyn 3.375 In Ns 100ml) 100 mls @ 200 mls/hr IVPB Q6 [facility] PRN Reason: Protocol Stop: 12/06/16 12:01 Last Admin: 12/03/16 12:27 Dose: 200 mls/hr Insulin Detemir (Levemir) 12 unit SC HS [facility] Last Admin: 12/02/16 22:00 Dose: Not Given Insulin Human Regular (Humulin R Low) 0 units SC ACHS [facility] PRN Reason: Protocol Last Admin: 12/03/16 12:26 Dose: Not Given Linezolid (Zyvox) 600 mg PO BID [facility] PRN Reason: Protocol Stop: 12/29/16 18:01 Last Admin: 12/03/16 11:25 Dose: Not Given Lorazepam (Ativan) 0.5 mg PO TID PRN; Protocol PRN Reason: Anxiety Last Admin: 12/03/16 16:11 Dose: 0.5 mg Metoprolol Tartrate (Lopressor) 25 mg PO BID [facility] Last Admin: 12/03/16 11:25 Dose: Not Given Morphine Sulfate (Morphine Extended Release Tab) 30 mg PO Q12 [facility] Last Admin: 12/03/16 11:25 Dose: Not Given Olanzapine (Zyprexa Zydis) 5 mg PO HS [facility] PRN Reason: Protocol Ondansetron HCl (Zofran Inj) 4 mg IVP Q6H PRN PRN Reason: Nausea/Vomiting Pantoprazole Sodium (Protonix Ec Tab) 40 mg PO 0600 [facility] Last Admin: 12/02/16 06:39 Dose: 40 mg Risperidone (Risperdal Oral Soln) 0.5 mg PO TID PRN; Protocol PRN Reason: agitation/psychosis Trazodone HCl (Desyrel) 50 mg PO HS [facility] Last Admin: 12/03/16 00:18 Dose: Not Given Ziprasidone (Geodon Inj) 10 mg IM Q6 PRN; Protocol PRN Reason: Agitation - Labs Labs: 12/02/16 16:19 12/03/16 06:30 PT 11.6 Seconds (9.9-11.8) 11/25/16 03:00 INR 1.07 (0.93-1.08) 11/25/16 03:00 APTT 24.2 Seconds (23.7-30.8) 11/25/16 03:00 Attending/Attestation - Attestation I have personally seen and examined this patient.: Yes I have fully participated in the care of the patient.: Yes I have reviewed all pertinent clinical information, including history, physical exam and plan: Yes Notes (Text): 12/03/16 16:53 Attending note; Patient seen and examined with resident and psychiatrist. Patient is a 51 year old female with past medical history of [place], diabetes, hypertension, ?history of uterine and lung cancer (patient is poor historian), chronic left heel ulcer and ?OM who was recently discharged to [facility] on iv antibiotics who presented with complaint of chest pain. D-dimer was elevated however VQ scan and LE doppler is negative. Serial cardiac enzymes were negative and ACS was ruled out. Cardiology is following and she is on aspirin, plavix, statin and lopressor. Follow-up with podiatry for chronic left heel ulcer. Dressing changed. Off loading boots ordered. Compliance advised. Patient also has CKD and anemia (possibly from anemia of chronic disease) which we will continue to monitor. cr is 1.5 today. She is on levemir and insulin ss for diabetes. Patient continues to be refusing labs, iv antibiotics, fluids and medications on and off. Patient is alert, awake and oriented. Psychiatric evaluation appreciated. Again she is encouraged to take her medications. Risks of medication noncompliance were explained to the patient. Case discussed with transplant case manager and social welfare research worker for discharge planning. patient is refusing to back to [facility].
--- NOTE | 2016-12-03 15:41 | CP.PCM.PN ---
Subjective - Date & Time of Evaluation Date of Evaluation: 12/03/16 Time of Evaluation: 15:29 - Subjective Subjective: 51 year old female was seen at bedside with nurse regarding left heel ulcer. Patient states that she is hungry and "need to eat my sandwich because I am a diabetic". Patient did not object to a dressing change while she was eating. She does not have any offloading boots to her LE b/l, per nurse, she refuses to wear them. Objective - Vital Signs/Intake and Output Vital Signs (last 24 hours): Temp Pulse Resp BP Pulse Ox 97.9 F 94 H 18 138/68 99 12/02/16 07:30 12/02/16 07:30 12/02/16 07:30 12/02/16 07:30 12/02/16 07:30 Intake and Output: 12/03/16 12/03/16 06:59 18:59 Intake Total 170 480 Balance 170 480 - Medications Medications: Current Medications Albuterol/Ipratropium (Duoneb 3 Mg/0.5 Mg (3 Ml) Ud) 3 ml IH [id number] PRN PRN Reason: Shortness of Breath Aspirin (Aspirin Chewable) 81 mg PO DAILY [facility] Last Admin: 12/03/16 11:24 Dose: Not Given Atorvastatin Calcium (Lipitor) 20 mg PO DIN [facility] Last Admin: 12/02/16 17:52 Dose: Not Given Clopidogrel Bisulfate (Plavix) 75 mg PO DAILY [facility] Last Admin: 12/03/16 11:25 Dose: Not Given Docusate Sodium (Colace) 100 mg PO DAILY [facility] Last Admin: 12/03/16 11:24 Dose: Not Given Furosemide (Lasix) 20 mg PO BID [facility] Last Admin: 12/03/16 11:24 Dose: Not Given Heparin Sodium (Porcine) (Heparin) 5,000 units SC Q12 [facility] PRN Reason: Protocol Last Admin: 11/28/16 21:28 Dose: Not Given Hydromorphone HCl (Dilaudid) 0.5 mg IVP Q6H PRN PRN Reason: pain Last Admin: 12/03/16 12:25 Dose: 0.5 mg Sodium Chloride (Sodium Chloride 0.9%) 1,000 mls @ 75 mls/hr IV .[id number] [facility] Last Admin: 12/02/16 04:53 Dose: Not Given Piperacillin Sod/Tazobactam Sod (Zosyn 3.375 In Ns 100ml) 100 mls @ 200 mls/hr IVPB Q6 [facility] PRN Reason: Protocol Stop: 12/06/16 12:01 Last Admin: 12/03/16 12:27 Dose: 200 mls/hr Insulin Detemir (Levemir) 12 unit SC HS [facility] Last Admin: 12/02/16 22:00 Dose: Not Given Insulin Human Regular (Humulin R Low) [address] [facility] PRN Reason: Protocol Last Admin: 12/03/16 12:26 Dose: Not Given Linezolid (Zyvox) 600 mg PO BID [facility] PRN Reason: Protocol Stop: 12/29/16 18:01 Last Admin: 12/03/16 11:25 Dose: Not Given Lorazepam (Ativan) 0.5 mg PO TID PRN; Protocol PRN Reason: Anxiety Last Admin: 12/03/16 06:13 Dose: 0.5 mg Metoprolol Tartrate (Lopressor) 25 mg PO BID [facility] Last Admin: 12/03/16 11:25 Dose: Not Given Morphine Sulfate (Morphine Extended Release Tab) 30 mg PO Q12 [facility] Last Admin: 12/03/16 11:25 Dose: Not Given Olanzapine (Zyprexa Zydis) 5 mg PO HS [facility] PRN Reason: Protocol Ondansetron HCl (Zofran Inj) 4 mg IVP Q6H PRN PRN Reason: Nausea/Vomiting Pantoprazole Sodium (Protonix Ec Tab) 40 mg PO 0600 [facility] Last Admin: 12/02/16 06:39 Dose: 40 mg Risperidone (Risperdal Oral Soln) 0.5 mg PO TID PRN; Protocol PRN Reason: agitation/psychosis Trazodone HCl (Desyrel) 50 mg PO HS [facility] Last Admin: 12/03/16 00:18 Dose: Not Given Ziprasidone (Geodon Inj) 10 mg IM Q6 PRN; Protocol PRN Reason: Agitation - Labs Labs: 12/02/16 16:19 12/03/16 06:30 PT 11.6 Seconds (9.9-11.8) 11/25/16 03:00 INR 1.07 (0.93-1.08) 11/25/16 03:00 APTT 24.2 Seconds (23.7-30.8) 11/25/16 03:00 - Constitutional Appears: No Acute Distress - Extremities Exam Additional comments: Left lower extremity focused exam: Vasc: DP and PT pulses noted. CFT < 3 seconds to digits x5. Skin temperature warm to cool from proximal to distal Derm: Ulceration noted to the left heel measuring approximately 4 cm by 4 cm by 0.4 cm with exposed bone, no abscess noted, no necrotic tissue noted, mild amount of sanginous drainage noted, maceration and edema noted to the maren- wound area. Sutures noted to the proximal aspect of ulcer to left heel Ortho: Tenderness to palpation of the left heel Neuro: Gross sensation diminished - Neurological Exam Neurological Exam: Alert, Awake Assessment and Plan - Assessment and Plan (Free Text) Assessment: 51 year old female with ulceration to left heel with exposed bone and osteomylitis Plan: patient examined and evaluated discussed with attending, Dr. Brady chart, labs, vitals reviewed;afebrile, WBC 5.8 (12/02/16) wound culture-MRSA, proteus continue IV abx per ID left heel dressed with vaseline gauze dressing, ABD, kerlix offloading boots to be applied to LE b/l at all times while in bed Stable for d/c to [facility] for custodial abx patient to follow up with her surgeon for further wound treatment
[2016-12-03 18:46] LABS: ADD MANUAL DIFF? NO
[2016-12-03 18:51] LABS: BASO # 0.02 K/mm3 (0.0-2.0); BASO % 0.3 % (0.0-3.0); EOS # 0.3 (0.0-0.7); EOS % 3.8 % (1.5-5.0); GRAN % 65.3 % (50.0-68.0); HEMATOCRIT 31.1 % (36.0-48.0); LYMPH # 1.8 (1.2-3.4); LYMPH % 24.5 % (22.0-35.0); MEAN CORPUSCULAR HEMOGLOBIN 26.8 pg (25.0-35.0); MEAN CORPUSCULAR HGB CONC 33.1 g/dl (31.0-37.0); MEAN PLATELET VOLUME 9.7 fl (7.0-11.0); MONO # 0.4 (0.1-0.6); MONO % 6.1 % (1.0-6.0); PLATELET COUNT 255 10^3/uL (120.0-450.0); RED CELL DISTRIBUTION WIDTH 16.2 % (11.5-14.5); WHITE BLOOD COUNT 7.2 10^3/ul (4.5-11.0)
[2016-12-03] MEDS: Sodium Chloride 0.9% 1,000 ML IV SCH ×2 (20:00→23:27)
[2016-12-03 20:04] LABS: ERYTHROCYTE SEDIMENTATION RATE 70 mm/hr (0.0-20.0)
[2016-12-03] MEDS: Insulin Detemir 100 units/ml Vial (Levemir) SC SCH (21:39)
[2016-12-03] MEDS: OLANZapine 5 mg Disintegrating Tab PO SCH (23:28)
[2016-12-04] MEDS: HYDROmorphone 0.5 mg/0.5 ml ISec IVP PRN ×3 (00:49→21:14)
[2016-12-04] MEDS: Piperacillin/Tazobact 3.375 gm 100 ML IVPB SCH ×5 (05:54→23:59)
[2016-12-04] MEDS: Pantoprazole 40 mg EC Tab PO SCH (06:00)
--- NOTE | 2016-12-04 10:12 | CP.PCM.PN ---
<Andree Mcdonough - Last Filed: 12/04/16 10:08> Subjective - Date & Time of Evaluation Date of Evaluation: 12/04/16 Time of Evaluation: 10:09 - Subjective Subjective: 51 year old female was seen at bedside with attending, Dr. Brady, regarding left heel ulcer. She does not have any offloading boots to her LE b/l, per nurse , she refuses to wear them. She is NAD. Objective - Vital Signs/Intake and Output Vital Signs (last 24 hours): Temp Pulse Resp BP Pulse Ox 97.9 F 94 H 18 138/68 99 12/02/16 07:30 12/02/16 07:30 12/02/16 07:30 12/02/16 07:30 12/02/16 07:30 Intake and Output: 12/04/16 12/04/16 06:59 18:59 Intake Total 360 480 Balance 360 480 - Medications Medications: Current Medications Albuterol/Ipratropium (Duoneb 3 Mg/0.5 Mg (3 Ml) Ud) 3 ml IH [id number] PRN PRN Reason: Shortness of Breath Aspirin (Aspirin Chewable) 81 mg PO DAILY [facility] Last Admin: 12/03/16 11:24 Dose: Not Given Atorvastatin Calcium (Lipitor) 20 mg PO DIN [facility] Last Admin: 12/03/16 18:52 Dose: Not Given Clopidogrel Bisulfate (Plavix) 75 mg PO DAILY [facility] Last Admin: 12/03/16 11:25 Dose: Not Given Docusate Sodium (Colace) 100 mg PO DAILY [facility] Last Admin: 12/03/16 11:24 Dose: Not Given Furosemide (Lasix) 20 mg PO BID [facility] Last Admin: 12/03/16 18:52 Dose: Not Given Heparin Sodium (Porcine) (Heparin) 5,000 units SC Q12 [facility] PRN Reason: Protocol Last Admin: 11/28/16 21:28 Dose: Not Given Hydromorphone HCl (Dilaudid) 0.5 mg IVP Q6H PRN PRN Reason: pain Last Admin: 12/04/16 00:49 Dose: 0.5 mg Sodium Chloride (Sodium Chloride 0.9%) 1,000 mls @ 75 mls/hr IV .[id number] [facility] Last Admin: 12/03/16 23:27 Dose: Not Given Piperacillin Sod/Tazobactam Sod (Zosyn 3.375 In Ns 100ml) 100 mls @ 200 mls/hr IVPB Q6 [facility] PRN Reason: Protocol Stop: 12/06/16 12:01 Last Admin: 12/04/16 05:54 Dose: 200 mls/hr Insulin Detemir (Levemir) 12 unit SC HS [facility] Last Admin: 12/03/16 21:39 Dose: Not Given Insulin Human Regular (Humulin R Low) 0 units SC [facility] PRN Reason: Protocol Last Admin: 12/03/16 21:38 Dose: Not Given Linezolid (Zyvox) 600 mg PO BID [facility] PRN Reason: Protocol Stop: 12/29/16 18:01 Last Admin: 12/03/16 18:53 Dose: Not Given Lorazepam (Ativan) 0.5 mg PO TID PRN; Protocol PRN Reason: Anxiety Last Admin: 12/03/16 16:11 Dose: 0.5 mg Metoprolol Tartrate (Lopressor) 25 mg PO BID [facility] Last Admin: 12/03/16 18:52 Dose: Not Given Morphine Sulfate (Morphine Extended Release Tab) 30 mg PO Q12 [facility] Last Admin: 12/03/16 21:35 Dose: 30 mg Olanzapine (Zyprexa Zydis) 5 mg PO [facility] PRN Reason: Protocol Last Admin: 12/03/16 23:28 Dose: Not Given Ondansetron HCl (Zofran Inj) 4 mg IVP Q4 PRN PRN Reason: Nausea/Vomiting Pantoprazole Sodium (Protonix Ec Tab) 40 mg PO 0600 [facility] Last Admin: 12/04/16 06:00 Dose: Not Given Trazodone HCl (Desyrel) 50 mg PO HS [facility] Last Admin: 12/03/16 21:35 Dose: 50 mg Ziprasidone (Geodon Inj) 10 mg IM Q6 PRN; Protocol PRN Reason: Agitation - Labs Labs: 12/03/16 18:45 12/03/16 06:30 PT 11.6 Seconds (9.9-11.8) 11/25/16 03:00 INR 1.07 (0.93-1.08) 11/25/16 03:00 APTT 24.2 Seconds (23.7-30.8) 11/25/16 03:00 - Constitutional Appears: Non-toxic, No Acute Distress - Extremities Exam Additional comments: Left lower extremity focused exam: Vasc: DP and PT pulses noted. CFT < 3 seconds to digits x 5. Skin temperature warm to cool from proximal to distal Derm: Ulceration noted to the left heel measuring approximately 4 cm by 4 cm by 0.4 cm with exposed bone, no abscess noted, no necrotic tissue noted, mild amount of sanginous drainage noted, maceration and edema noted to the maren- wound area. Sutures noted to the proximal aspect of ulcer to left heel Ortho: Tenderness to palpation of the left heel Neuro: Gross sensation diminished - Neurological Exam Neurological Exam: Alert, Awake, Oriented x3 - Psychiatric Exam Psychiatric exam: Normal Affect, Normal Mood Assessment and Plan - Assessment and Plan (Free Text) Assessment: 51 year old female with ulceration to left heel with exposed bone and osteomyelitis Plan: patient examined and evaluated with attending, Dr. 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 patient to follow up with her surgeon for further wound treatment podiatry will continue to follow patient while in house <Sheridan Brady - Last Filed: 12/07/16 17:30> Objective - Vital Signs/Intake and Output Vital Signs (last 24 hours): Temp Pulse Resp BP Pulse Ox 98.7 F 80 15 243/144 H 100 12/07/16 16:00 12/07/16 16:00 12/07/16 16:00 12/07/16 16:00 12/07/16 16:00 Intake and Output: 12/07/16 12/07/16 06:59 18:59 Intake Total 240 Balance 240 - Medications Medications: Current Medications Albuterol/Ipratropium (Duoneb 3 Mg/0.5 Mg (3 Ml) Ud) 3 ml IH [id number] PRN PRN Reason: Shortness of Breath Aspirin (Aspirin Chewable) 81 mg PO DAILY [facility] Last Admin: 12/07/16 09:15 Dose: 81 mg Atorvastatin Calcium (Lipitor) 20 mg PO DIN [facility] Last Admin: 12/06/16 17:43 Dose: Not Given Clopidogrel Bisulfate (Plavix) 75 mg PO DAILY [facility] Last Admin: 12/07/16 09:14 Dose: 75 mg Docusate Sodium (Colace) 100 mg PO BID [facility] Heparin Sodium (Porcine) (Heparin) 5,000 units SC Q12 [facility] PRN Reason: Protocol Last Admin: 11/28/16 21:28 Dose: Not Given Hydralazine HCl (Apresoline) 10 mg IVP Q6 PRN PRN Reason: Systolic Blood Pressure Hydromorphone HCl (Dilaudid) 0.5 mg IVP Q6H PRN PRN Reason: Pain, severe (8-10) Last Admin: 12/07/16 12:40 Dose: 0.5 mg Piperacillin Sod/Tazobactam Sod (Zosyn 3.375 In Ns 100ml) 100 mls @ 200 mls/hr IVPB Q6 [facility] PRN Reason: Protocol Stop: 12/27/16 12:01 Last Admin: 12/07/16 12:12 Dose: 200 mls/hr Insulin Detemir (Levemir) 12 unit SC HS [facility] Last Admin: 12/06/16 22:41 Dose: Not Given Insulin Human Regular (Humulin R Low) 0 units SC ACHS [facility] PRN Reason: Protocol Last Admin: 12/07/16 12:12 Dose: 3 units Linezolid (Zyvox) 600 mg PO BID [facility] PRN Reason: Protocol Stop: 12/29/16 18:01 Last Admin: 12/07/16 09:14 Dose: 600 mg Lorazepam (Ativan) 0.5 mg PO TID PRN; Protocol PRN Reason: Anxiety Last Admin: 12/04/16 21:12 Dose: 0.5 mg Metoclopramide HCl (Reglan) 5 mg IVP ACHS [facility] Metoprolol Tartrate (Lopressor) 25 mg PO BID [facility] Last Admin: 12/07/16 09:16 Dose: 25 mg Morphine Sulfate (Morphine Extended Release Tab) 30 mg PO Q12 [facility] Last Admin: 12/07/16 09:16 Dose: 30 mg Olanzapine (Zyprexa Zydis) 5 mg PO HS [facility] PRN Reason: Protocol Last Admin: 12/06/16 22:41 Dose: Not Given Ondansetron HCl (Zofran Inj) 4 mg IVP Q4 PRN PRN Reason: Nausea/Vomiting Pantoprazole Sodium (Protonix Ec Tab) 40 mg PO 0600 [facility] Last Admin: 12/07/16 06:26 Dose: Not Given Polyethylene Glycol (Miralax) 17 gm PO DAILY PRN PRN Reason: Constipation Last Admin: 12/07/16 15:12 Dose: 17 gm Trazodone HCl (Desyrel) 50 mg PO HS [facility] Last Admin: 12/06/16 22:41 Dose: Not Given Ziprasidone (Geodon Inj) 20 mg IM Q6 PRN; Protocol PRN Reason: Agitation - Labs Labs: 12/03/16 18:45 12/07/16 06:30 PT 11.6 Seconds (9.9-11.8) 11/25/16 03:00 INR 1.07 (0.93-1.08) 11/25/16 03:00 APTT 24.2 Seconds (23.7-30.8) 11/25/16 03:00 Attending/Attestation - Attestation I have personally seen and examined this patient.: Yes I have fully participated in the care of the patient.: Yes I have reviewed all pertinent clinical information, including history, physical exam and plan: Yes
--- NOTE | 2016-12-04 14:03 | CP.PCM.PN ---
<TRES ARTHUR - Last Filed: 12/04/16 14:08> Subjective - Date & Time of Evaluation Date of Evaluation: 12/04/16 Time of Evaluation: 09:00 - Subjective Subjective: Medicine Progress Note: Pt seen and assessed at bedside. Pt continues to refuse PO antibiotics, hypertension medications and insulin. Pt states "I just don't want to" when asked for reasoning behind refusing these medications. Pt denies fever, headache , shortness of breath, chest pain, nausea, vomiting and diarrhea. Objective - Vital Signs/Intake and Output Vital Signs (last 24 hours): Temp Pulse Resp BP Pulse Ox 97.9 F 94 H 18 138/68 99 12/02/16 07:30 12/02/16 07:30 12/02/16 07:30 12/02/16 07:30 12/02/16 07:30 Intake and Output: 12/04/16 12/04/16 06:59 18:59 Intake Total 360 980 Balance 360 980 - Medications Medications: Current Medications Albuterol/Ipratropium (Duoneb 3 Mg/0.5 Mg (3 Ml) Ud) 3 ml IH [id number] PRN PRN Reason: Shortness of Breath Aspirin (Aspirin Chewable) 81 mg PO DAILY [facility] Last Admin: 12/03/16 11:24 Dose: Not Given Atorvastatin Calcium (Lipitor) 20 mg PO DIN [facility] Last Admin: 12/03/16 18:52 Dose: Not Given Clopidogrel Bisulfate (Plavix) 75 mg PO DAILY [facility] Last Admin: 12/03/16 11:25 Dose: Not Given Docusate Sodium (Colace) 100 mg PO DAILY [facility] Last Admin: 12/03/16 11:24 Dose: Not Given Furosemide (Lasix) 20 mg PO BID [facility] Last Admin: 12/03/16 18:52 Dose: Not Given Heparin Sodium (Porcine) (Heparin) 5,000 units SC Q12 [facility] PRN Reason: Protocol Last Admin: 11/28/16 21:28 Dose: Not Given Hydromorphone HCl (Dilaudid) 0.5 mg IVP Q6H PRN PRN Reason: pain Last Admin: 12/04/16 00:49 Dose: 0.5 mg Sodium Chloride (Sodium Chloride 0.9%) 1,000 mls @ 75 mls/hr IV .[id number] [facility] Last Admin: 12/03/16 23:27 Dose: Not Given Piperacillin Sod/Tazobactam Sod (Zosyn 3.375 In Ns 100ml) 100 mls @ 200 mls/hr IVPB Q6 [facility] PRN Reason: Protocol Stop: 12/06/16 12:01 Last Admin: 12/04/16 05:54 Dose: 200 mls/hr Insulin Detemir (Levemir) 12 unit SC HS [facility] Last Admin: 12/03/16 21:39 Dose: Not Given Insulin Human Regular (Humulin R Low) 0 units SC ACHS [facility] PRN Reason: Protocol Last Admin: 12/03/16 21:38 Dose: Not Given Linezolid (Zyvox) 600 mg PO BID [facility] PRN Reason: Protocol Stop: 12/29/16 18:01 Last Admin: 12/03/16 18:53 Dose: Not Given Lorazepam (Ativan) 0.5 mg PO TID PRN; Protocol PRN Reason: Anxiety Last Admin: 12/03/16 16:11 Dose: 0.5 mg Metoprolol Tartrate (Lopressor) 25 mg PO BID [facility] Last Admin: 12/03/16 18:52 Dose: Not Given Morphine Sulfate (Morphine Extended Release Tab) 30 mg PO Q12 [facility] Last Admin: 12/03/16 21:35 Dose: 30 mg Olanzapine (Zyprexa Zydis) 5 mg PO HS [facility] PRN Reason: Protocol Last Admin: 12/03/16 23:28 Dose: Not Given Ondansetron HCl (Zofran Inj) 4 mg IVP Q4 PRN PRN Reason: Nausea/Vomiting Pantoprazole Sodium (Protonix Ec Tab) 40 mg PO 0600 [facility] Last Admin: 12/04/16 06:00 Dose: Not Given Trazodone HCl (Desyrel) 50 mg PO HS [facility] Last Admin: 12/03/16 21:35 Dose: 50 mg Ziprasidone (Geodon Inj) 10 mg IM Q6 PRN; Protocol PRN Reason: Agitation - Labs Labs: 12/03/16 18:45 12/03/16 06:30 PT 11.6 Seconds (9.9-11.8) 11/25/16 03:00 INR 1.07 (0.93-1.08) 11/25/16 03:00 APTT 24.2 Seconds (23.7-30.8) 11/25/16 03:00 - Constitutional Appears: In Acute Distress - Head Exam Head Exam: NORMAL INSPECTION - Eye Exam Eye Exam: EOMI, Normal appearance - ENT Exam ENT Exam: Mucous Membranes Moist, Normal Exam - Neck Exam Neck Exam: Full ROM - Respiratory Exam Respiratory Exam: Clear to Ausculation Bilateral, NORMAL BREATHING PATTERN. absent: Rales, Rhonchi, Wheezes - Cardiovascular Exam Cardiovascular Exam: REGULAR RHYTHM, +S1, +S2. absent: Murmur - GI/Abdominal Exam GI & Abdominal Exam: Normal Bowel Sounds - Extremities Exam Extremities Exam: absent: Calf Tenderness, Pedal Edema - Neurological Exam Neurological Exam: Alert, Awake - Psychiatric Exam Psychiatric exam: Agitated - Skin Skin Exam: Dry, Intact, Normal Color, Warm - Additional Findings Additional findings: Left heel wound dressing clean, dry and intact. Assessment and Plan - Assessment and Plan (Free Text) Assessment: Patient is a 51 yo female with a past medical history of MA, hyperlipidemia, diabetes, HTN, CKD, asthma, DVT, uterine cancer, lung cancer and thromboembolic disease S/P left heel osteo debridement who was admitted for evaluation and treatment of chest pain and left heel pain. Plan: 1. S/P Left heel ulcer debridement/osteomyelitis - Zosyn and Zyvox ID- patient encouraged to stop refusing Zyvox and explained in detail the importance of doing so -pain control with PO morphine and IV dilaudid -wound cultures have grown MRSA and amikacin sensitive proteus mirabilis -patient should have 4-6 weeks of Zosyn and 3-4 weeks of Zyvox with weekly ESR, CRP, CBC, CMP as per ID; would consider PO antibiotics if these trend downward -PICC line replaced to ensure adequate [facility] use for IV antibiotics -pt continues to refuse PT/OT -pt currently refusing boots -podiatry and wound care on board- recs include Wound dressed with xeroform, ABD and kirlix; patient to continue NWB at this time -SW/case management working on acute care placement 2. Chronic Pancreatitis -patient currently refusing insulin -pain control with morphine and dilaudid -heart healthy diet with low fat -will continue to monitor 3. Thyroid Nodule -TSH wnl -asymptomatic at this time -will continue to monitor 4. Vision Changes -optho consulted and agreed to see as outpatient -will assist pt in scheduling upon d/c 5. Agitation -PRN Geodon, PRN Risperidone and PRN Ativan -psychiatry suggested mood stabilizers but patient refused -psychiatry following 6. Anemia -Iron studies within normal limits -B12 and Folate WNL -continuing to monitor with daily CBC's 7. Asthma -Duoneb q4 PRN 8. Medication Noncompliance - patient education provided 9. Patient Reports History of Heart and Uterine Cancer - no written record or means of attaining written record were provided by patient despite multiple inquiries - noncontrast CT of chest/abdomen/ pelvis showed no acute disease processes in heart or lungs 10. GI/DVT prophylaxis -protonix/ SCD Patient seen and case discussed with attending physician, Dr. Manuel. <Jorge Manuel - Last Filed: 12/04/16 17:31> Objective - Vital Signs/Intake and Output Vital Signs (last 24 hours): Temp Pulse Resp BP Pulse Ox 97.8 F 94 H 20 210/112 H 99 12/04/16 16:00 12/04/16 16:00 12/04/16 16:00 12/04/16 16:00 12/02/16 07:30 Intake and Output: 12/04/16 12/04/16 06:59 18:59 Intake Total 360 1140 Balance 360 1140 - Medications Medications: Current Medications Albuterol/Ipratropium (Duoneb 3 Mg/0.5 Mg (3 Ml) Ud) 3 ml IH [id number] PRN PRN Reason: Shortness of Breath Aspirin (Aspirin Chewable) 81 mg PO DAILY [facility] Last Admin: 12/04/16 14:18 Dose: 81 mg Atorvastatin Calcium (Lipitor) 20 mg PO DIN [facility] Last Admin: 12/03/16 18:52 Dose: Not Given Clopidogrel Bisulfate (Plavix) 75 mg PO DAILY [facility] Last Admin: 12/04/16 14:19 Dose: 75 mg Docusate Sodium (Colace) 100 mg PO DAILY [facility] Last Admin: 12/04/16 14:18 Dose: 100 mg Heparin Sodium (Porcine) (Heparin) 5,000 units SC Q12 [facility] PRN Reason: Protocol Last Admin: 11/28/16 21:28 Dose: Not Given Hydromorphone HCl (Dilaudid) 0.5 mg IVP Q6H PRN PRN Reason: pain Last Admin: 12/04/16 16:03 Dose: 0.5 mg Sodium Chloride (Sodium Chloride 0.9%) 1,000 mls @ 75 mls/hr IV .[id number] [facility] Last Admin: 12/03/16 23:27 Dose: Not Given Piperacillin Sod/Tazobactam Sod (Zosyn 3.375 In Ns 100ml) 100 mls @ 200 mls/hr IVPB Q6 [facility] PRN Reason: Protocol Stop: 12/06/16 12:01 Last Admin: 12/04/16 14:07 Dose: 200 mls/hr Insulin Detemir (Levemir) 12 unit SC HS [facility] Last Admin: 12/03/16 21:39 Dose: Not Given Insulin Human Regular (Humulin R Low) 0 units SC ACHS [facility] PRN Reason: Protocol Last Admin: 12/03/16 21:38 Dose: Not Given Linezolid (Zyvox) 600 mg PO BID [facility] PRN Reason: Protocol Stop: 12/29/16 18:01 Last Admin: 12/04/16 14:19 Dose: 600 mg Lorazepam (Ativan) 0.5 mg PO TID PRN; Protocol PRN Reason: Anxiety Last Admin: 12/03/16 16:11 Dose: 0.5 mg Metoprolol Tartrate (Lopressor) 25 mg PO BID [facility] Last Admin: 12/03/16 18:52 Dose: Not Given Morphine Sulfate (Morphine Extended Release Tab) 30 mg PO Q12 [facility] Last Admin: 12/04/16 14:18 Dose: 30 mg Olanzapine (Zyprexa Zydis) 5 mg PO [facility] PRN Reason: Protocol Last Admin: 12/03/16 23:28 Dose: Not Given Ondansetron HCl (Zofran Inj) 4 mg IVP Q4 PRN PRN Reason: Nausea/Vomiting Pantoprazole Sodium (Protonix Ec Tab) 40 mg PO 0600 [facility] Last Admin: 12/04/16 06:00 Dose: Not Given Trazodone HCl (Desyrel) 50 mg PO HS [facility] Last Admin: 12/03/16 21:35 Dose: 50 mg Ziprasidone (Geodon Inj) 10 mg IM Q6 PRN; Protocol PRN Reason: Agitation - Labs Labs: 12/03/16 18:45 12/03/16 06:30 PT 11.6 Seconds (9.9-11.8) 11/25/16 03:00 INR 1.07 (0.93-1.08) 11/25/16 03:00 APTT 24.2 Seconds (23.7-30.8) 11/25/16 03:00 Attending/Attestation - Attestation I have personally seen and examined this patient.: Yes I have fully participated in the care of the patient.: Yes I have reviewed all pertinent clinical information, including history, physical exam and plan: Yes Notes (Text): 12/04/16 16:54 Attending note; Patient seen and examined with resident. Patient is still with labile mood and refusing medications on and off. Patient is a 51 year old female with past medical history of MA, diabetes, hypertension, ?history of uterine and lung cancer ( not confirmed), chronic heel ulcer and chronic OM who was recently discharged to [facility] on iv antibiotics who presented with complaint of chest pain. D-dimer was elevated however VQ scan and LE doppler is negative. Serial cardiac enzymes were negative and ACS was ruled out. she is on aspirin, plavix, statin and lopressor. Podiatry follow-up appreciated. Dressing changed. Off loading boots ordered. Compliance advised. Patient also has CKD and anemia. She is on levemir and insulin ss for diabetes. not taking insulin. Psychiatric re evaluation appreciated. Again she is encouraged to take her medications. Risks of medication noncompliance explained to the patient. Chart from [facility] reviewed. Patient has been in multiple hospitals before. She is from [facility]. Has been refused by multiple rehabs. cargo station worker got in touch with the family/aunt. Patient doesn't have power of erisa attorney or healthcare proxy. Patient is refusing to go back to [facility]. Refusing to go to [place] [facility] acute [facility]. We'll follow up with manager social work and shoe parts caser for discharge planning closely.
[2016-12-04] MEDS: Morphine 30 mg SR Tab PO SCH ×2 (14:18→21:13)
[2016-12-04] MEDS: Insulin Reg-LOW-Coverage SC SCH ×2 (21:08→21:58)
[2016-12-04] MEDS: Insulin Detemir 100 units/ml Vial (Levemir) SC SCH (21:58)
[2016-12-04] MEDS: OLANZapine 5 mg Disintegrating Tab PO SCH (21:59)
[2016-12-05] MEDS: HYDROmorphone 0.5 mg/0.5 ml ISec IVP PRN ×4 (02:28→22:14)
[2016-12-05] MEDS: Pantoprazole 40 mg EC Tab PO SCH (06:00)
[2016-12-05] MEDS: Piperacillin/Tazobact 3.375 gm 100 ML IVPB SCH ×4 (06:41→23:13)
[2016-12-05 07:29] LABS: ALB/GLOB RATIO 0.9 (1.1-1.8); BILIRUBIN,TOTAL 0.5 mg/dL (0.2-1.3); CALCIUM 9.2 mg/dL (8.4-10.5); POTASSIUM 4.2 mmol/L (3.6-5.0)
[2016-12-05] MEDS: Insulin Reg-LOW-Coverage SC SCH ×3 (08:45→15:51)
[2016-12-05] MEDS: Morphine 30 mg SR Tab PO SCH ×3 (09:20→23:13)
--- NOTE | 2016-12-05 15:41 | CP.PCM.PN ---
Subjective - Date & Time of Evaluation Date of Evaluation: 12/05/16 Time of Evaluation: 10:30 - Subjective Subjective: Comfortable in bed, afebrile, still refusing meds. Objective - Vital Signs/Intake and Output Vital Signs (last 24 hours): Temp Pulse Resp BP Pulse Ox 97.8 F 94 H 20 210/112 H 99 12/04/16 16:00 12/04/16 16:00 12/04/16 16:00 12/04/16 16:00 12/02/16 07:30 Intake and Output: 12/05/16 12/05/16 06:59 18:59 Intake Total 360 Balance 360 - Medications Medications: Current Medications Albuterol/Ipratropium (Duoneb 3 Mg/0.5 Mg (3 Ml) Ud) 3 ml IH [id number] PRN PRN Reason: Shortness of Breath Aspirin (Aspirin Chewable) 81 mg PO DAILY [facility] Last Admin: 12/04/16 14:18 Dose: 81 mg Atorvastatin Calcium (Lipitor) 20 mg PO DIN [facility] Last Admin: 12/04/16 21:08 Dose: Not Given Clopidogrel Bisulfate (Plavix) 75 mg PO DAILY [facility] Last Admin: 12/04/16 14:19 Dose: 75 mg Docusate Sodium (Colace) 100 mg PO DAILY [facility] Last Admin: 12/04/16 14:18 Dose: 100 mg Heparin Sodium (Porcine) (Heparin) 5,000 units SC Q12 [facility] PRN Reason: Protocol Last Admin: 11/28/16 21:28 Dose: Not Given Hydromorphone HCl (Dilaudid) 0.5 mg IVP Q6H PRN PRN Reason: Pain, severe (8-10) Last Admin: 12/05/16 02:28 Dose: 0.5 mg Sodium Chloride (Sodium Chloride 0.9%) 1,000 mls @ 75 mls/hr IV .[id number] [facility] Last Admin: 12/03/16 23:27 Dose: Not Given Piperacillin Sod/Tazobactam Sod (Zosyn 3.375 In Ns 100ml) 100 mls @ 200 mls/hr IVPB Q6 [facility] PRN Reason: Protocol Stop: 12/27/16 12:01 Last Admin: 12/05/16 06:41 Dose: 200 mls/hr Insulin Detemir (Levemir) 12 unit SC HS [facility] Last Admin: 12/04/16 21:58 Dose: Not Given Insulin Human Regular (Humulin R Low) 0 units SC [facility] PRN Reason: Protocol Last Admin: 12/04/16 21:58 Dose: Not Given Linezolid (Zyvox) 600 mg PO BID [facility] PRN Reason: Protocol Stop: 12/29/16 18:01 Last Admin: 12/04/16 21:11 Dose: Not Given Lorazepam (Ativan) 0.5 mg PO TID PRN; Protocol PRN Reason: Anxiety Last Admin: 12/04/16 21:12 Dose: 0.5 mg Metoprolol Tartrate (Lopressor) 25 mg PO BID [facility] Last Admin: 12/04/16 21:10 Dose: Not Given Morphine Sulfate (Morphine Extended Release Tab) 30 mg PO Q12 [facility] Last Admin: 12/04/16 21:13 Dose: 30 mg Olanzapine (Zyprexa Zydis) [address] [facility] PRN Reason: Protocol Last Admin: 12/04/16 21:59 Dose: Not Given Ondansetron HCl (Zofran Inj) 4 mg IVP Q4 PRN PRN Reason: Nausea/Vomiting Pantoprazole Sodium (Protonix Ec Tab) 40 mg PO 0600 [facility] Last Admin: 12/05/16 06:00 Dose: Not Given Trazodone HCl (Desyrel) [address] [facility] Last Admin: 12/04/16 21:59 Dose: Not Given Ziprasidone (Geodon Inj) 10 mg IM Q6 PRN; Protocol PRN Reason: Agitation - Labs Labs: 12/03/16 18:45 12/05/16 06:30 PT 11.6 Seconds (9.9-11.8) 11/25/16 03:00 INR 1.07 (0.93-1.08) 11/25/16 03:00 APTT 24.2 Seconds (23.7-30.8) 11/25/16 03:00 - Constitutional Appears: Non-toxic, No Acute Distress - Head Exam Head Exam: NORMAL INSPECTION - Neck Exam Neck Exam: absent: Meningismus - Respiratory Exam Respiratory Exam: Decreased Breath Sounds - Cardiovascular Exam Cardiovascular Exam: +S1, +S2 - GI/Abdominal Exam GI & Abdominal Exam: Soft. absent: Tenderness Assessment and Plan - Assessment and Plan (Free Text) Plan: Assessment Probable left foot osteomyelitis (was on antibiotics prior to admission), growing staph aureus and multidrug resistant Proteus only sensitive to Zosyn and MRSA S/P left PICC line placement dyslipidemia DM HTN history of cholecystitis chronic renal failure history of uterine cancer CAD history of depression history of DVT Plan continue Zosyn and Zyvox; reviewed Podiatry evaluation and old medical records ( patient apparently had a sample of the bone from the heel removed but no cultures seen on the medical records) will follow clinically while the patient is in the hospital; patient should have 4-6 weeks of Zosyn and Zyvox with weekly ESR, CRP, CBC, CMP we have explained to patient she needs to take her antibiotics otherwise she may lose the foot or worse even lead to
--- NOTE | 2016-12-05 15:44 | CP.PCM.PN ---
<TRES ARTHUR - Last Filed: 12/05/16 15:40> Subjective - Date & Time of Evaluation Date of Evaluation: 12/05/16 Time of Evaluation: 09:00 - Subjective Subjective: Medicine Progress Note: Pt was seen and assessed at bedside. Pt has no new complaints this morning. Pt continues to refuse most of her medications and offered no explanation this morning when asked her reasoning for this. Pt denies fever, headache, chest pain , shortness of breath, N/V or diarrhea. Objective - Vital Signs/Intake and Output Vital Signs (last 24 hours): Temp Pulse Resp BP Pulse Ox 98.2 F 95 H 20 148/88 98 12/05/16 07:30 12/05/16 07:30 12/05/16 07:30 12/05/16 07:30 12/05/16 07:30 Intake and Output: 12/05/16 12/05/16 06:59 18:59 Intake Total 360 480 Balance 360 480 - Medications Medications: Current Medications Albuterol/Ipratropium (Duoneb 3 Mg/0.5 Mg (3 Ml) Ud) 3 ml IH [id number] PRN PRN Reason: Shortness of Breath Aspirin (Aspirin Chewable) 81 mg PO DAILY [facility] Last Admin: 12/05/16 09:20 Dose: Not Given Atorvastatin Calcium (Lipitor) 20 mg PO DIN [facility] Last Admin: 12/04/16 21:08 Dose: Not Given Clopidogrel Bisulfate (Plavix) 75 mg PO DAILY [facility] Last Admin: 12/05/16 09:20 Dose: Not Given Docusate Sodium (Colace) 100 mg PO DAILY [facility] Last Admin: 12/05/16 09:20 Dose: Not Given Heparin Sodium (Porcine) (Heparin) 5,000 units SC Q12 MIKKI PRN Reason: Protocol Last Admin: 11/28/16 21:28 Dose: Not Given Hydromorphone HCl (Dilaudid) 0.5 mg IVP Q6H PRN PRN Reason: Pain, severe (8-10) Last Admin: 12/05/16 08:44 Dose: 0.5 mg Sodium Chloride (Sodium Chloride 0.9%) 1,000 mls @ 75 mls/hr IV .[id number] [facility] Last Admin: 12/03/16 23:27 Dose: Not Given Piperacillin Sod/Tazobactam Sod (Zosyn 3.375 In Ns 100ml) 100 mls @ 200 mls/hr IVPB Q6 MIKKI PRN Reason: Protocol Stop: 12/27/16 12:01 Last Admin: 12/05/16 13:34 Dose: 200 mls/hr Insulin Detemir (Levemir) 12 unit SC HS [facility] Last Admin: 12/04/16 21:58 Dose: Not Given Insulin Human Regular (Humulin R Low) 0 units SC ACHS [facility] PRN Reason: Protocol Last Admin: 12/05/16 13:34 Dose: 2 units Linezolid (Zyvox) 600 mg PO BID [facility] PRN Reason: Protocol Stop: 12/29/16 18:01 Last Admin: 12/04/16 21:11 Dose: Not Given Lorazepam (Ativan) 0.5 mg PO TID PRN; Protocol PRN Reason: Anxiety Last Admin: 12/04/16 21:12 Dose: 0.5 mg Metoprolol Tartrate (Lopressor) 25 mg PO BID [facility] Last Admin: 12/05/16 09:20 Dose: Not Given Morphine Sulfate (Morphine Extended Release Tab) 30 mg PO Q12 [facility] Last Admin: 12/05/16 13:35 Dose: 30 mg Olanzapine (Zyprexa Zydis) 5 mg PO HS [facility] PRN Reason: Protocol Last Admin: 12/04/16 21:59 Dose: Not Given Ondansetron HCl (Zofran Inj) 4 mg IVP Q4 PRN PRN Reason: Nausea/Vomiting Pantoprazole Sodium (Protonix Ec Tab) 40 mg PO 0600 [facility] Last Admin: 12/05/16 06:00 Dose: Not Given Trazodone HCl (Desyrel) 50 mg PO HS [facility] Last Admin: 12/04/16 21:59 Dose: Not Given Ziprasidone (Geodon Inj) 10 mg IM Q6 PRN; Protocol PRN Reason: Agitation - Labs Labs: 12/03/16 18:45 12/05/16 06:30 PT 11.6 Seconds (9.9-11.8) 11/25/16 03:00 INR 1.07 (0.93-1.08) 11/25/16 03:00 APTT 24.2 Seconds (23.7-30.8) 11/25/16 03:00 - Constitutional Appears: No Acute Distress - Head Exam Head Exam: NORMOCEPHALIC - Eye Exam Eye Exam: EOMI, Normal appearance Pupil Exam: PERRL - ENT Exam ENT Exam: Mucous Membranes Moist, Normal Exam - Neck Exam Neck Exam: Full ROM - Respiratory Exam Respiratory Exam: Clear to Ausculation Bilateral, NORMAL BREATHING PATTERN. absent: Rales, Rhonchi, Wheezes - Cardiovascular Exam Cardiovascular Exam: REGULAR RHYTHM, +S1, +S2. absent: Murmur - GI/Abdominal Exam GI & Abdominal Exam: Normal Bowel Sounds. absent: Distended - Extremities Exam Extremities Exam: absent: Calf Tenderness, Pedal Edema - Neurological Exam Neurological Exam: Alert, Awake, Oriented x3 - Psychiatric Exam Psychiatric exam: Normal Affect, Normal Mood - Skin Skin Exam: Dry, Intact, Normal Color, Warm - Additional Findings Additional findings: L heel wound dressing clean, dry and intact. Assessment and Plan - Assessment and Plan (Free Text) Assessment: Patient is a 51 yo female with a past medical history of AZ, hyperlipidemia, diabetes, HTN, CKD, asthma, DVT, uterine cancer, lung cancer and thromboembolic disease S/P left heel osteo debridement who was admitted for evaluation and treatment of chest pain and left heel pain. Plan: 1. S/P Left heel ulcer debridement/osteomyelitis - Zosyn and Zyvox ID- patient encouraged to stop refusing Zyvox despite multiple conversations explaining the importance of doing so -pain control with PO morphine and IV dilaudid -wound cultures have grown MRSA and amikacin sensitive proteus mirabilis -patient should have 4-6 weeks of Zosyn and 3-4 weeks of Zyvox with weekly ESR, CRP, CBC, CMP as per ID; would consider PO antibiotics if these trend downward -PICC line replaced to ensure adequate oil heaterman use for IV antibiotics -pt continues to refuse PT/OT -pt currently refusing boots -podiatry and wound care on board- recs include Wound dressed with xeroform, ABD and kirlix; patient to continue NWB at this time -SW/case management working on acute care placement 2. Chronic Pancreatitis -pt given 2 units of humulin today; cont to refuse levemir -pain control with morphine and dilaudid -heart healthy diet with low fat -will continue to monitor 3. Thyroid Nodule -TSH wnl -asymptomatic at this time -will continue to monitor 4. Vision Changes -optho consulted and agreed to see as outpatient -will assist pt in scheduling upon d/c 5. Agitation -PRN Geodon, PRN Risperidone and PRN Ativan -psychiatry suggested mood stabilizers but patient refused -psychiatry following 6. Anemia -Iron studies within normal limits -B12 and Folate WNL -continuing to monitor with daily CBC's 7. Asthma -Duoneb q4 PRN 8. Medication Noncompliance - patient education provided 9. Patient Reports History of Heart and Uterine Cancer - no mention of heart cancer or labs/imaging documenting other malignancies/ treatment of said malignancies in review of [facility] records - no written record or means of attaining written record were provided by patient despite multiple inquiries - noncontrast CT of chest/abdomen/ pelvis showed no acute disease processes in heart or lungs 10. GI/DVT prophylaxis -protonix/ SCD Patient seen and case discussed with attending physician, Dr. Manuel. <Jorge Manuel - Last Filed: 12/05/16 17:29> Objective - Vital Signs/Intake and Output Vital Signs (last 24 hours): Temp Pulse Resp BP Pulse Ox 98.2 F 95 H 20 148/88 98 12/05/16 07:30 12/05/16 07:30 12/05/16 07:30 12/05/16 07:30 12/05/16 07:30 Intake and Output: 12/05/16 12/05/16 06:59 18:59 Intake Total 360 480 Balance 360 480 - Medications Medications: Current Medications Albuterol/Ipratropium (Duoneb 3 Mg/0.5 Mg (3 Ml) Ud) 3 ml IH [id number] PRN PRN Reason: Shortness of Breath Aspirin (Aspirin Chewable) 81 mg PO DAILY [facility] Last Admin: 12/05/16 09:20 Dose: Not Given Atorvastatin Calcium (Lipitor) 20 mg PO DIN [facility] Last Admin: 12/04/16 21:08 Dose: Not Given Clopidogrel Bisulfate (Plavix) 75 mg PO DAILY [facility] Last Admin: 12/05/16 09:20 Dose: Not Given Docusate Sodium (Colace) 100 mg PO DAILY [facility] Last Admin: 12/05/16 09:20 Dose: Not Given Heparin Sodium (Porcine) (Heparin) 5,000 units SC Q12 MIKKI PRN Reason: Protocol Last Admin: 11/28/16 21:28 Dose: Not Given Hydromorphone HCl (Dilaudid) 0.5 mg IVP Q6H PRN PRN Reason: Pain, severe (8-10) Last Admin: 12/05/16 16:16 Dose: 0.5 mg Sodium Chloride (Sodium Chloride 0.9%) 1,000 mls @ 75 mls/hr IV .[id number] [facility] Last Admin: 12/03/16 23:27 Dose: Not Given Piperacillin Sod/Tazobactam Sod (Zosyn 3.375 In Ns 100ml) 100 mls @ 200 mls/hr IVPB Q6 MIKKI PRN Reason: Protocol Stop: 12/27/16 12:01 Last Admin: 12/05/16 13:34 Dose: 200 mls/hr Insulin Detemir (Levemir) 12 unit SC HS [facility] Last Admin: 12/04/16 21:58 Dose: Not Given Insulin Human Regular (Humulin R Low) 0 units SC ACHS [facility] PRN Reason: Protocol Last Admin: 12/05/16 15:51 Dose: Not Given Linezolid (Zyvox) 600 mg PO BID [facility] PRN Reason: Protocol Stop: 12/29/16 18:01 Last Admin: 12/04/16 21:11 Dose: Not Given Lorazepam (Ativan) 0.5 mg PO TID PRN; Protocol PRN Reason: Anxiety Last Admin: 12/04/16 21:12 Dose: 0.5 mg Metoprolol Tartrate (Lopressor) 25 mg PO BID [facility] Last Admin: 12/05/16 09:20 Dose: Not Given Morphine Sulfate (Morphine Extended Release Tab) 30 mg PO Q12 [facility] Last Admin: 12/05/16 13:35 Dose: 30 mg Olanzapine (Zyprexa Zydis) 5 mg PO HS [facility] PRN Reason: Protocol Last Admin: 12/04/16 21:59 Dose: Not Given Ondansetron HCl (Zofran Inj) 4 mg IVP Q4 PRN PRN Reason: Nausea/Vomiting Pantoprazole Sodium (Protonix Ec Tab) 40 mg PO 0600 [facility] Last Admin: 12/05/16 06:00 Dose: Not Given Trazodone HCl (Desyrel) 50 mg PO [facility] Last Admin: 12/04/16 21:59 Dose: Not Given Ziprasidone (Geodon Inj) 10 mg IM Q6 PRN; Protocol PRN Reason: Agitation - Labs Labs: 12/03/16 18:45 12/05/16 06:30 PT 11.6 Seconds (9.9-11.8) 11/25/16 03:00 INR 1.07 (0.93-1.08) 11/25/16 03:00 APTT 24.2 Seconds (23.7-30.8) 11/25/16 03:00 Attending/Attestation - Attestation I have personally seen and examined this patient.: Yes I have fully participated in the care of the patient.: Yes I have reviewed all pertinent clinical information, including history, physical exam and plan: Yes Notes (Text): 12/05/16 17:27 Attending note; Patient seen and examined with resident. Patient is still with labile mood and refusing medications on and off. Patient is a 51 year old female with past medical history of AZ, diabetes, hypertension, ?history of uterine and lung cancer ( not confirmed), chronic heel ulcer and chronic OM who was recently discharged to [facility] on iv antibiotics who presented with complaint of chest pain. D-dimer was elevated however VQ scan and LE doppler is negative. Serial cardiac enzymes were negative and ACS was ruled out. she is on aspirin, plavix, statin and lopressor. Podiatry follow-up appreciated. Dressing changed. Off loading boots ordered. Compliance advised. Patient also has CKD and anemia. cr 1.3 today. She is on levemir and insulin ss for diabetes. not taking insulin. Psychiatric re evaluation appreciated. Again she is encouraged to take her medications. Risks of medication noncompliance explained to the patient. Chart from [facility] reviewed. Patient has been in multiple hospitals before. She is from [facility]. Has been refused by multiple rehabs. day care worker got in touch with the family/aunt. Patient doesn't have power of patent attorney or healthcare proxy. Patient is refusing to go back to [facility]. Refusing to go to [place] [facility]. We'll follow up with social psychologist and comp field case manager for discharge planning closely.
[2016-12-05] MEDS: Insulin Detemir 100 units/ml Vial (Levemir) SC SCH (23:15)
[2016-12-05] MEDS: OLANZapine 5 mg Disintegrating Tab PO SCH (23:50)
[2016-12-06] MEDS: Insulin Reg-LOW-Coverage SC SCH ×5 (03:15→22:40)
[2016-12-06] MEDS: HYDROmorphone 0.5 mg/0.5 ml ISec IVP PRN ×4 (03:52→23:58)
[2016-12-06] MEDS: Piperacillin/Tazobact 3.375 gm 100 ML IVPB SCH ×3 (05:26→17:42)
[2016-12-06] MEDS: Pantoprazole 40 mg EC Tab PO SCH ×2 (07:32→10:21)
[2016-12-06 07:34] LABS: ALB/GLOB RATIO 0.9 (1.1-1.8); BILIRUBIN,TOTAL 0.5 mg/dL (0.2-1.3); CALCIUM 9.1 mg/dL (8.4-10.5); POTASSIUM 4.4 mmol/L (3.6-5.0); TOTAL PROTEIN 7.1 g/dL (5.8-8.3)
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
--- NOTE | 2016-12-06 10:28 | CP.PCM.CON ---
History of Present Illness - History of Present Illness History of Present Illness: Shortly patient is 51 years old female, reported history of bipolar disorder, (most likely pt has schizoaffective disorder) but patient denied h/o mental illness, patient was admitted on the medical side for evaluation of chest pain, initially psych consult was called for evaluation of possible depressive symptoms, patient is verbal abuse towards staff, possible medication management, please see initial note for more detailed information. medical team called psychiatric f/u for this pt because pt was not making rational decisions , was refusing antibiotics, emotionally labile, pt was seen by this fha underwriter on daily basis since 12/03/16. pt was followed up today, presented the same way, irritable, angry, simple questions making pt scream at this fha underwriter and cursing her out "you are asking so many questions...", pt takes abx sporadically, pt took only two doses of PO antibiotics and 9doses of IV antibiotics. when this fha underwriter asked about reason "what do you mean, I am taking them....", pt then offered to take po abx now, pt said "I do not take it now, I will take it later moreover it was started two days ago". No reasoning ability. as per staffing executive pt is still irritable, screaming, cursing, refused majority of meds, not giving explanation why. this fha underwriter initiated zyprexa zydis 5mg hs for mood stabilization and psychosis , pt was educated about this medication, risk, benefits and alternatives, pt said "I know my rights, I will not take sh...t from you". today pt said "I have Power of [employer]", when this fha underwriter asked who is he, pt said "I don't know his name", pt was asked how he related to the pt, pt said " he is a kettleman", pt said that "he is my mother's "?. there is no option to have meaningful conversation. Patient denied history of mental illness, but obviously has symptoms of mood disorder, borderline and passive aggressive personality traits, as well as patient is aware of majority of psychotropic medications, which gives this fha underwriter impression that patient has long history of mental illness. "a lot of psychiatrists said that I am fine, I am good", when was asked why psychiatrists were involved in pt's care, pt said "It was only one, I was 14, everyone would need to have psychiatrist at age of 14, I had a boyfriend problems". as per RN report takes meds sporadically, was refusing BP medications, antibiotics, FS, refused PT, OT. MSE: pt alert, knows the name of the hospital, but disoriented in time, does not remember this fha underwriter "I cannot see as you know". poor hygiene, intense eye contact, speech was loud, overproductive, mood "why you asking all these stupid questions?", affect was irritable, angry, mood incongruent, thought process is disorganized, circumstantial and tangential, thought content: pt obviously psychotic, delusional, paranoid. Pt has no insight into her illness psychiatric and medical illness, poor judgment, impulses unpredictable. Impression: r/o schizophrenia spectrum d/co r/o schizoaffective disorder r/o paranoid personality r/o borderline personality passive aggressive Plan: pt has no capacity to sing AMA (pt was nota able to understand what are the consequences of being without treatment even ID and medical team as well as this wrier educated pt about) pt has no capacity to refuse abx pt was started on zyprexa zydis 5mg hs (pt was on this medication before, pt refused, this fha underwriter educated pt about the risk, benefits and alternatives of this medication) d/w medical, ID, [facility], housing case manager pt has case management involved PT (pt refused) pt also was refusing to go to the most of the [facility] Chart from [facility] reviewed with yesterday, pt was not consulted by psychiatrist there behavior description was "pt is drug seeking behavior" we will f/u and advise accordingly today pt said that she has POA "he is a kettleman, he is my mother's , I don 't remember his name or phone number". Past Patient History - Tetanus Immunizations Tetanus Immunization: Unknown - Past Medical History & Family History Past Medical History?: Yes - Past Social History Smoking Status: Never Smoked Alcohol: None Drugs: Denies Home Situation {Lives}: With Family - CARDIAC Hx Heart Attack: Yes Hx Hypertension: Yes - PULMONARY Hx Asthma: Yes Hx Lung Cancer: Yes - HEENT Hx HEENT Problems: Yes Other/Comment: diff vision - RENAL Hx Chronic Kidney Disease: Yes Hx Renal Failure: Yes Other/Comment: cancer - ENDOCRINE/METABOLIC Hx Diabetes Mellitus Type 2: Yes - HEMATOLOGICAL/ONCOLOGICAL Hx Anemia: Yes Hx Cancer: Yes Hx Chemotherapy: Yes - INTEGUMENTARY Other/Comment: osteomylitis r foot - MUSCULOSKELETAL/RHEUMATOLOGICAL Hx Osteomyelitis: Yes (r foot) Other/Comment: dvt rue - GASTROINTESTINAL Hx Gastrointestinal Disorders: No - GENITOURINARY/GYNECOLOGICAL Hx Genitourinary Disorders: No - PSYCHIATRIC Hx Bipolar Disorder: Yes Hx Depression: Yes Hx Substance Use: No Other/Comment: drug seeking - SURGICAL HISTORY Other/Comment: r nephrectomy/r foot. / picc left upper arm Meds Allergies/Adverse Reactions: Allergies Allergy/AdvReac Type Severity Reaction Status Date / Time ketorolac [From Toradol] Allergy RASH Verified 11/25/16 02:56 - Medications Medications: Current Medications Albuterol/Ipratropium (Duoneb 3 Mg/0.5 Mg (3 Ml) Ud) 3 ml IH [id number] PRN PRN Reason: Shortness of Breath Aspirin (Aspirin Chewable) 81 mg PO DAILY [facility] Last Admin: 12/04/16 14:18 Dose: 81 mg Atorvastatin Calcium (Lipitor) 20 mg PO DIN [facility] Last Admin: 12/04/16 21:08 Dose: Not Given Clopidogrel Bisulfate (Plavix) 75 mg PO DAILY [facility] Last Admin: 12/04/16 14:19 Dose: 75 mg Docusate Sodium (Colace) 100 mg PO DAILY [facility] Last Admin: 12/04/16 14:18 Dose: 100 mg Heparin Sodium (Porcine) (Heparin) 5,000 units SC Q12 [facility]KKI PRN Reason: Protocol Last Admin: 11/28/16 21:28 Dose: Not Given Hydromorphone HCl (Dilaudid) 0.5 mg IVP Q6H PRN PRN Reason: Pain, severe (8-10) Last Admin: 12/05/16 02:28 Dose: 0.5 mg Sodium Chloride (Sodium Chloride 0.9%) 1,000 mls @ 75 mls/hr IV .[id number] [facility] Last Admin: 12/03/16 23:27 Dose: Not Given Piperacillin Sod/Tazobactam Sod (Zosyn 3.375 In Ns 100ml) 100 mls @ 200 mls/hr IVPB Q6 MIKKI PRN Reason: Protocol Stop: 12/06/16 12:01 Last Admin: 12/05/16 06:41 Dose: 200 mls/hr Insulin Detemir (Levemir) 12 unit SC HS [facility] Last Admin: 12/04/16 21:58 Dose: Not Given Insulin Human Regular (Humulin R Low) 0 units SC [facility] PRN Reason: Protocol Last Admin: 12/04/16 21:58 Dose: Not Given Linezolid (Zyvox) 600 mg PO BID [facility] PRN Reason: Protocol Stop: 12/29/16 18:01 Last Admin: 12/04/16 21:11 Dose: Not Given Lorazepam (Ativan) 0.5 mg PO TID PRN; Protocol PRN Reason: Anxiety Last Admin: 12/04/16 21:12 Dose: 0.5 mg Metoprolol Tartrate (Lopressor) 25 mg PO BID [facility] Last Admin: 12/04/16 21:10 Dose: Not Given Morphine Sulfate (Morphine Extended Release Tab) 30 mg PO Q12 [facility] Last Admin: 12/04/16 21:13 Dose: 30 mg Olanzapine (Zyprexa Zydis) 5 mg PO [facility] PRN Reason: Protocol Last Admin: 12/04/16 21:59 Dose: Not Given Ondansetron HCl (Zofran Inj) 4 mg IVP Q4 PRN PRN Reason: Nausea/Vomiting Pantoprazole Sodium (Protonix Ec Tab) 40 mg PO 0600 [facility] Last Admin: 12/05/16 06:00 Dose: Not Given Trazodone HCl (Desyrel) 50 mg PO [facility] Last Admin: 12/04/16 21:59 Dose: Not Given Ziprasidone (Geodon Inj) 10 mg IM Q6 PRN; Protocol PRN Reason: Agitation Results - Vital Signs Recent Vital Signs: Last Vital Signs Temp 97.8 F 12/04/16 16:00 Pulse 94 H 12/04/16 16:00 Resp 20 12/04/16 16:00 BP 210/112 H 12/04/16 16:00 Pulse Ox 99 12/02/16 07:30 - Labs Result Diagrams: 12/03/16 18:45 12/05/16 06:30 Labs: Laboratory Results - last 24 hr 12/03/16 12/04/16 12/04/16 18:30 11:37 19:09 Sodium Potassium Chloride Carbon Dioxide Anion Gap BUN Creatinine Est GFR ( Amer) Est GFR (Non-Af Amer) POC Glucose (mg/dL) 332 H 222 H Random Glucose Calcium Total Bilirubin AST ALT Alkaline Phosphatase C-React Prot High Sens 4.90 H Total Protein Albumin Globulin Albumin/Globulin Ratio 12/05/16 06:30 Sodium 138 Potassium 4.2 Chloride 103 Carbon Dioxide 27 Anion Gap 12 BUN 26 H Creatinine 1.3 Est GFR ( Amer) 52 Est GFR (Non-Af Amer) 43 POC Glucose (mg/dL) Random Glucose 249 H Calcium 9.2 Total Bilirubin 0.5 AST 43 H ALT 53 Alkaline Phosphatase 510 H C-React Prot High Sens Total Protein 7.0 Albumin 3.4 Globulin 3.6 Albumin/Globulin Ratio 0.9 L
[2016-12-06] MEDS: Morphine 30 mg SR Tab PO SCH ×2 (10:30→22:40)
--- NOTE | 2016-12-06 10:39 | CP.PCM.CON ---
History of Present Illness - History of Present Illness History of Present Illness: Shortly patient is 51 years old female, reported history of bipolar disorder, (most likely pt has schizoaffective disorder) but patient denied h/o mental illness, patient was admitted on the medical side for evaluation of chest pain, initially psych consult was called for evaluation of possible depressive symptoms, patient is verbal abuse towards staff, possible medication management, please see initial note for more detailed information. medical team called psychiatric f/u for this pt because pt was not making rational decisions , was refusing antibiotics, emotionally labile, pt was seen by this creative services writer on daily basis since 12/03/16. pt was followed up today, presented the same way, irritable, angry, pt said "I miss my mom", started to cry, then pt said while she was in [facility] "my family was coming every day", this creative services writer asked why family does not come to visit pt here, pt said "are you stupid or what?, they all live in [place]", when was asked how come they could visit pt in [facility] and not here , pt started to scream "I want to peee, call the nurse or I will urinate on the floor....". Pt is disorganized, passive-aggressive. pt is preoccupied with pain medication only but was compliant with IV antibiotics yesterday, pt was refusing all po meds besides Ativan. medical and ID teams educating pt about poor prognosis if pt will be noncompliant with meds, but pt still takes them sporadically. as per RN report takes meds sporadically, cursing, agitated, loud, demanding. MSE: pt alert, knows the name of the hospital, but disoriented in time, does not remember this creative services writer "I cannot see as you know". poor hygiene, intense eye contact, speech was loud, overproductive, mood "why you asking all these stupid questions?", affect was irritable, angry, mood incongruent, thought process is disorganized, circumstantial and tangential, thought content: pt obviously disorganized, irrational. Pt has no insight into her psychiatric illness, pt has basic understanding of her medical dx, but poor judgment, impulses unpredictable. Impression: r/o schizophrenia spectrum d/co r/o schizoaffective disorder r/o paranoid personality r/o borderline personality r/o delirium due to a [facility] passive aggressive Plan: pt has no capacity to sing AMA (pt was nota able to understand what are the consequences of being without treatment even ID and medical team as well as this wrier educated pt about) pt was compliant with IV antibiotics yesterday (4doses) but no PO antibiotics, this creative services writer cannot exclude pt's mental status will be improving if medical condition will be better pt was started on zyprexa zydis 5mg hs (pt was on this medication before, pt refused, this creative services writer educated pt about the risk, benefits and alternatives of this medication) d/w medical, ID, [facility], adult protective caseworker pt has case management involved, pt does not have POA or legal guardian PT (pt refused) pt also was refusing to go to the most of the [facility] Chart from [facility] reviewed with 09/04/2016, pt was not consulted by psychiatrist there behavior description was "pt is drug seeking behavior" we will f/u and advise accordingly Past Patient History - Tetanus Immunizations Tetanus Immunization: Unknown - Past Medical History & Family History Past Medical History?: Yes - Past Social History Smoking Status: Never Smoked Alcohol: None Drugs: Denies Home Situation {Lives}: With Family - CARDIAC Hx Heart Attack: Yes Hx Hypertension: Yes - PULMONARY Hx Asthma: Yes Hx Lung Cancer: Yes - HEENT Hx HEENT Problems: Yes Other/Comment: diff vision - RENAL Hx Chronic Kidney Disease: Yes Hx Renal Failure: Yes Other/Comment: cancer - ENDOCRINE/METABOLIC Hx Diabetes Mellitus Type 2: Yes - HEMATOLOGICAL/ONCOLOGICAL Hx Anemia: Yes Hx Cancer: Yes Hx Chemotherapy: Yes - INTEGUMENTARY Other/Comment: osteomylitis r foot - MUSCULOSKELETAL/RHEUMATOLOGICAL Hx Osteomyelitis: Yes (r foot) Other/Comment: dvt rue - GASTROINTESTINAL Hx Gastrointestinal Disorders: No - GENITOURINARY/GYNECOLOGICAL Hx Genitourinary Disorders: No - PSYCHIATRIC Hx Bipolar Disorder: Yes Hx Depression: Yes Hx Substance Use: No Other/Comment: drug seeking - SURGICAL HISTORY Other/Comment: r nephrectomy/r foot. / picc left upper arm Meds Allergies/Adverse Reactions: Allergies Allergy/AdvReac Type Severity Reaction Status Date / Time chicken derived Allergy RASH Verified 12/05/16 16:21 ketorolac [From Toradol] Allergy RASH Verified 11/25/16 02:56 - Medications Medications: Current Medications Albuterol/Ipratropium (Duoneb 3 Mg/0.5 Mg (3 Ml) Ud) 3 ml IH [id number] PRN PRN Reason: Shortness of Breath Aspirin (Aspirin Chewable) [address] [facility] Last Admin: 12/06/16 10:20 Dose: 81 mg Atorvastatin Calcium (Lipitor) [address] [facility] Last Admin: 12/05/16 17:30 Dose: Not Given Clopidogrel Bisulfate (Plavix) [address] [facility] Last Admin: 12/06/16 10:20 Dose: 75 mg Docusate Sodium (Colace) [address] [facility] Last Admin: 12/06/16 10:20 Dose: 100 mg Heparin Sodium (Porcine) (Heparin) 5,000 units SC Q12 [facility]KK[facility] PRN Reason: Protocol Last Admin: 11/28/16 21:28 Dose: Not Given Hydromorphone HCl (Dilaudid) 0.5 mg IVP Q6H PRN PRN Reason: Pain, severe (8-10) Last Admin: 12/06/16 10:24 Dose: 0.5 mg Sodium Chloride (Sodium Chloride 0.9%) 1,000 mls @ 75 mls/hr IV .[id number] [facility] Last Admin: 12/03/16 23:27 Dose: Not Given Piperacillin Sod/Tazobactam Sod (Zosyn 3.375 In Ns 100ml) 100 mls @ 200 mls/hr IVPB Q6 [facility] PRN Reason: Protocol Stop: 12/27/16 12:01 Last Admin: 12/06/16 05:26 Dose: 200 mls/hr Insulin Detemir (Levemir) [address] [facility] Last Admin: 12/05/16 23:15 Dose: 12 unit Insulin Human Regular (Humulin R Low) [address] [facility] PRN Reason: Protocol Last Admin: 12/06/16 10:24 Dose: 2 units Linezolid (Zyvox) [address] [facility] PRN Reason: Protocol Stop: 12/29/16 18:01 Last Admin: 12/05/16 17:31 Dose: Not Given Lorazepam (Ativan) 0.5 mg PO TID PRN; Protocol PRN Reason: Anxiety Last Admin: 12/04/16 21:12 Dose: 0.5 mg Metoprolol Tartrate (Lopressor) [address] [facility] Last Admin: 12/06/16 10:20 Dose: 25 mg Morphine Sulfate (Morphine Extended Release Tab) 30 mg PO Q12 [facility] Last Admin: 12/05/16 23:13 Dose: 30 mg Olanzapine (Zyprexa Zydis) [address] [facility] PRN Reason: Protocol Last Admin: 12/05/16 23:50 Dose: Not Given Ondansetron HCl (Zofran Inj) 4 mg IVP Q4 PRN PRN Reason: Nausea/Vomiting Pantoprazole Sodium (Protonix Ec Tab) [address] [facility] Last Admin: 12/06/16 10:21 Dose: 40 mg Trazodone HCl (Desyrel) [address] [facility] Last Admin: 12/05/16 22:20 Dose: 50 mg Ziprasidone (Geodon Inj) 10 mg IM Q6 PRN; Protocol PRN Reason: Agitation Last Admin: 12/06/16 09:49 Dose: 10 mg Results - Vital Signs Recent Vital Signs: Last Vital Signs Temp 98.2 F 12/05/16 07:30 Pulse 95 H 12/05/16 07:30 Resp 20 12/05/16 07:30 BP 132/74 12/06/16 10:20 Pulse Ox 98 12/05/16 07:30 - Labs Result Diagrams: 12/03/16 18:45 12/06/16 06:15 Labs: Laboratory Results - last 24 hr 12/05/16 12/05/16 12/05/16 11:42 15:49 21:48 Sodium Potassium Chloride Carbon Dioxide Anion Gap BUN Creatinine Est GFR ( Amer) Est GFR (Non-Af Amer) POC Glucose (mg/dL) 220 H 52 L 159 H Random Glucose Calcium Total Bilirubin AST ALT Alkaline Phosphatase Total Protein Albumin Globulin Albumin/Globulin Ratio 12/06/16 12/06/16 06:15 07:38 Sodium 139 Potassium 4.4 Chloride 105 Carbon Dioxide 25 Anion Gap 13 BUN 26 H Creatinine 1.5 H Est GFR ( Amer) 44 Est GFR (Non-Af Amer) 36 POC Glucose (mg/dL) 227 H Random Glucose 203 H Calcium 9.1 Total Bilirubin 0.5 AST 57 H ALT 56 Alkaline Phosphatase 517 H Total Protein 7.1 Albumin 3.4 Globulin 3.7 Albumin/Globulin Ratio 0.9 L
--- NOTE | 2016-12-06 10:59 | PN ---
DATE: 12/04/2016 SUBJECTIVE: The patient was seen earlier today in room 571 and bed 2. No fevers, no chills. PHYSICAL EXAMINATION: VITAL SIGNS: Temperature is 97, blood pressure is 130/60, respiratory rate of 18, heart rate 94. HEENT: Unremarkable. NECK: Supple. CARDIOPULMONARY: Normal S1, S2. LUNGS: Decreased breath sounds. ABDOMEN: Soft. LABORATORY DATA: Reveals a white count of 7.2, hemoglobin of 10, and platelets of 255. BUN of 35, creatinine 1.5 and urinalysis was noted. Microbiology reveals a left foot with Proteus mirabilis and MRSA, and sensitivity of the Proteus is noted, panresistant and MRSA is noted and review of orders. MEDICATIONS: The patient to be on Zosyn and Zyvox. ASSESSMENT AND PLAN: A 51-year-old female with probable left foot osteomyelitis and with methicillin-resistant Staphylococcus aureus and Proteus. Currently, on Zyvox and Zosyn. The patient with dyslipidemia, diabetes, hypertension, history of cholecystitis, chronic renal failure, and follow weekly sed rate, C-reactive protein and CBC *------*. Should have 4 to 6 weeks of Zosyn and Zyvox. Chandana Acevedo MD
--- NOTE | 2016-12-06 14:31 | CP.PCM.PN ---
Addendum entered and electronically signed by TRES ARTHUR DO 12/06/16 16:23 : Patient seen and case discussed with attending physician, Dr. Woodward. Original Note: <TRES ARTHUR - Last Filed: 12/06/16 14:28> Subjective - Date & Time of Evaluation Date of Evaluation: 12/06/16 Time of Evaluation: 07:30 - Subjective Subjective: Medicine Progress Note: Pt was seen and assessed at bedside. Pt has no new complaints this morning. Pt continues to refuse most of her medications and became agitated when her reasoning behind this was questioned. Pt began to yell in senegalese after being questioned. Pt denies fever, headache, chest pain, shortness of breath, N/V or diarrhea. Objective - Vital Signs/Intake and Output Vital Signs (last 24 hours): Temp Pulse Resp BP Pulse Ox 98.2 F 95 H 20 132/74 98 12/05/16 07:30 12/05/16 07:30 12/05/16 07:30 12/06/16 10:20 12/05/16 07:30 Intake and Output: 12/06/16 12/06/16 06:59 18:59 Intake Total 720 Output Total 0 Balance 720 - Medications Medications: Current Medications Albuterol/Ipratropium (Duoneb 3 Mg/0.5 Mg (3 Ml) Ud) 3 ml IH [id number] PRN PRN Reason: Shortness of Breath Aspirin (Aspirin Chewable) 81 mg PO DAILY [facility] Last Admin: 12/06/16 10:20 Dose: 81 mg Atorvastatin Calcium (Lipitor) 20 mg PO DIN [facility] Last Admin: 12/05/16 17:30 Dose: Not Given Clopidogrel Bisulfate (Plavix) 75 mg PO DAILY [facility] Last Admin: 12/06/16 10:20 Dose: 75 mg Docusate Sodium (Colace) 100 mg PO DAILY [facility] Last Admin: 12/06/16 10:20 Dose: 100 mg Heparin Sodium (Porcine) (Heparin) 5,000 units SC Q12 [facility] PRN Reason: Protocol Last Admin: 11/28/16 21:28 Dose: Not Given Hydromorphone HCl (Dilaudid) 0.5 mg IVP Q6H PRN PRN Reason: Pain, severe (8-10) Last Admin: 12/06/16 10:24 Dose: 0.5 mg Sodium Chloride (Sodium Chloride 0.9%) 1,000 mls @ 75 mls/hr IV .[id number] [facility] Last Admin: 12/03/16 23:27 Dose: Not Given Piperacillin Sod/Tazobactam Sod (Zosyn 3.375 In Ns 100ml) 100 mls @ 200 mls/hr IVPB Q6 [facility] PRN Reason: Protocol Stop: 12/27/16 12:01 Last Admin: 12/06/16 11:42 Dose: 200 mls/hr Insulin Detemir (Levemir) 12 unit SC HS [facility] Last Admin: 12/05/16 23:15 Dose: 12 unit Insulin Human Regular (Humulin R Low) 0 units SC ACHS [facility] PRN Reason: Protocol Last Admin: 12/06/16 11:41 Dose: Not Given Linezolid (Zyvox) 600 mg PO BID [facility] PRN Reason: Protocol Stop: 12/29/16 18:01 Last Admin: 12/06/16 11:42 Dose: Not Given Lorazepam (Ativan) 0.5 mg PO TID PRN; Protocol PRN Reason: Anxiety Last Admin: 12/04/16 21:12 Dose: 0.5 mg Metoprolol Tartrate (Lopressor) 25 mg PO BID [facility] Last Admin: 12/06/16 10:20 Dose: 25 mg Morphine Sulfate (Morphine Extended Release Tab) 30 mg PO Q12 [facility] Last Admin: 12/06/16 10:30 Dose: Not Given Olanzapine (Zyprexa Zydis) [address] [facility] PRN Reason: Protocol Last Admin: 12/05/16 23:50 Dose: Not Given Ondansetron HCl (Zofran Inj) 4 mg IVP Q4 PRN PRN Reason: Nausea/Vomiting Pantoprazole Sodium (Protonix Ec Tab) 40 mg PO 0600 [facility] Last Admin: 12/06/16 10:21 Dose: 40 mg Trazodone HCl (Desyrel) 50 mg PO HS [facility] Last Admin: 12/05/16 22:20 Dose: 50 mg Ziprasidone (Geodon Inj) 10 mg IM Q6 PRN; Protocol PRN Reason: Agitation Last Admin: 12/06/16 09:49 Dose: 10 mg - Labs Labs: 12/03/16 18:45 12/06/16 06:15 PT 11.6 Seconds (9.9-11.8) 11/25/16 03:00 INR 1.07 (0.93-1.08) 11/25/16 03:00 APTT 24.2 Seconds (23.7-30.8) 11/25/16 03:00 - Constitutional Appears: No Acute Distress, Agitated, Confused - Head Exam Head Exam: NORMAL INSPECTION, NORMOCEPHALIC - Eye Exam Eye Exam: EOMI, Normal appearance - ENT Exam ENT Exam: Mucous Membranes Moist, Normal Exam - Neck Exam Neck Exam: Full ROM - Respiratory Exam Respiratory Exam: Clear to Ausculation Bilateral, NORMAL BREATHING PATTERN. absent: Rales, Rhonchi, Wheezes, Respiratory Distress - Cardiovascular Exam Cardiovascular Exam: REGULAR RHYTHM, +S1, +S2. absent: Murmur - GI/Abdominal Exam GI & Abdominal Exam: absent: Distended, Guarding - Extremities Exam Extremities Exam: absent: Calf Tenderness, Pedal Edema Additional comments: L heel wound dressing clean, dry and intact. - Neurological Exam Neurological Exam: Alert, Awake - Psychiatric Exam Psychiatric exam: Normal Affect, Normal Mood - Skin Skin Exam: Dry, Intact, Normal Color, Warm Assessment and Plan - Assessment and Plan (Free Text) Assessment: Patient is a 51 yo female with a past medical history of NE, hyperlipidemia, diabetes, HTN, CKD, asthma, DVT, uterine cancer, lung cancer and thromboembolic disease S/P left heel osteo debridement who was admitted for evaluation and treatment of chest pain and left heel pain. Plan: 1. S/P Left heel ulcer debridement/osteomyelitis - Zosyn and Zyvox ID- patient encouraged to stop refusing Zyvox despite multiple conversations explaining the importance of doing so -pain control with PO morphine and IV dilaudid -wound cultures have grown MRSA and amikacin sensitive proteus mirabilis -patient should have 4-6 weeks of Zosyn and 3-4 weeks of Zyvox with weekly ESR, CRP, CBC, CMP as per ID; would consider PO antibiotics if these trend downward -PICC line replaced to ensure adequate longterm use for IV antibiotics -pt continues to refuse PT/OT -pt currently refusing boots -podiatry and wound care on board- recs include Wound dressed with xeroform, ABD and kirlix; patient to continue NWB at this time -SW/case management working on acute care placement 2. Chronic Pancreatitis -pt refused humulin but received 12u of levemir overnight -pain control with morphine and dilaudid -heart healthy diet with low fat -will continue to monitor 3. Agitation -PRN Geodon, PRN Risperidone and PRN Ativan -likely has schizoaffective disorder and patient started on zyprexa zydis 5mg HS , per psych -psychiatry following 4. Thyroid Nodule -TSH wnl -asymptomatic at this time -will continue to monitor 5. Vision Changes -optho consulted and agreed to see as outpatient -will assist pt in scheduling upon d/c 6. Anemia -Iron studies within normal limits -B12 and Folate WNL -continuing to monitor with daily CBC's 7. Asthma -Duoneb q4 PRN 8. Medication Noncompliance - patient education provided 9. Patient Reports History of Heart and Uterine Cancer - no mention of heart cancer or labs/imaging documenting other malignancies/ treatment of said malignancies in review of [facility] records - no written record or means of attaining written record were provided by patient despite multiple inquiries - noncontrast CT of chest/abdomen/ pelvis showed no acute disease processes in heart or lungs 10. GI/DVT prophylaxis -protonix/ SCD Patient seen and case discussed with attending physician, Dr. Manuel. <Crissy HER,Mimi - Last Filed: 12/06/16 17:31> Objective - Vital Signs/Intake and Output Vital Signs (last 24 hours): Temp Pulse Resp BP Pulse Ox 98.2 F 95 H 20 132/74 98 12/05/16 07:30 12/05/16 07:30 12/05/16 07:30 12/06/16 10:20 12/05/16 07:30 Intake and Output: 12/06/16 12/06/16 06:59 18:59 Intake Total 720 240 Output Total 0 Balance 720 240 - Medications Medications: Current Medications Albuterol/Ipratropium (Duoneb 3 Mg/0.5 Mg (3 Ml) Ud) 3 ml IH [id number] PRN PRN Reason: Shortness of Breath Aspirin (Aspirin Chewable) 81 mg PO DAILY [facility] Last Admin: 12/06/16 10:20 Dose: 81 mg Atorvastatin Calcium (Lipitor) 20 mg PO DIN [facility] Last Admin: 12/05/16 17:30 Dose: Not Given Clopidogrel Bisulfate (Plavix) 75 mg PO DAILY [facility] Last Admin: 12/06/16 10:20 Dose: 75 mg Docusate Sodium (Colace) 100 mg PO DAILY [facility] Last Admin: 12/06/16 10:20 Dose: 100 mg Heparin Sodium (Porcine) (Heparin) 5,000 units SC Q12 [facility] PRN Reason: Protocol Last Admin: 11/28/16 21:28 Dose: Not Given Hydromorphone HCl (Dilaudid) 0.5 mg IVP Q6H PRN PRN Reason: Pain, severe (8-10) Last Admin: 12/06/16 10:24 Dose: 0.5 mg Sodium Chloride (Sodium Chloride 0.9%) 1,000 mls @ 75 mls/hr IV .[id number] [facility] Last Admin: 12/03/16 23:27 Dose: Not Given Piperacillin Sod/Tazobactam Sod (Zosyn 3.375 In Ns 100ml) 100 mls @ 200 mls/hr IVPB Q6 [facility] PRN Reason: Protocol Stop: 12/27/16 12:01 Last Admin: 12/06/16 11:42 Dose: 200 mls/hr Insulin Detemir (Levemir) 12 unit SC HS [facility] Last Admin: 12/05/16 23:15 Dose: 12 unit Insulin Human Regular (Humulin R Low) 0 units SC ACHS [facility] PRN Reason: Protocol Last Admin: 12/06/16 11:41 Dose: Not Given Linezolid (Zyvox) 600 mg PO BID [facility] PRN Reason: Protocol Stop: 12/29/16 18:01 Last Admin: 12/06/16 11:42 Dose: Not Given Lorazepam (Ativan) 0.5 mg PO TID PRN; Protocol PRN Reason: Anxiety Last Admin: 12/04/16 21:12 Dose: 0.5 mg Metoprolol Tartrate (Lopressor) 25 mg PO BID [facility] Last Admin: 12/06/16 10:20 Dose: 25 mg Morphine Sulfate (Morphine Extended Release Tab) 30 mg PO Q12 [facility] Last Admin: 12/06/16 10:30 Dose: Not Given Olanzapine (Zyprexa Zydis) 5 mg PO HS [facility] PRN Reason: Protocol Last Admin: 12/05/16 23:50 Dose: Not Given Ondansetron HCl (Zofran Inj) 4 mg IVP Q4 PRN PRN Reason: Nausea/Vomiting Pantoprazole Sodium (Protonix Ec Tab) 40 mg PO 0600 [facility] Last Admin: 12/06/16 10:21 Dose: 40 mg Trazodone HCl (Desyrel) 50 mg PO HS [facility] Last Admin: 12/05/16 22:20 Dose: 50 mg Ziprasidone (Geodon Inj) 10 mg IM Q6 PRN; Protocol PRN Reason: Agitation Last Admin: 12/06/16 09:49 Dose: 10 mg - Labs Labs: 12/03/16 18:45 12/06/16 06:15 PT 11.6 Seconds (9.9-11.8) 11/25/16 03:00 INR 1.07 (0.93-1.08) 11/25/16 03:00 APTT 24.2 Seconds (23.7-30.8) 11/25/16 03:00 Attending/Attestation - Attestation I have personally seen and examined this patient.: Yes I have fully participated in the care of the patient.: Yes I have reviewed all pertinent clinical information, including history, physical exam and plan: Yes Notes (Text): 12/06/16 17:26 Patient was seen and examined with medical illustrator. 51 year old female with past medical history of NE, diabetes, hypertension, obesity left heel osteomylitis , wound cultures are growing MRSA and proteus mirabilis, on antibiotics as per ID.Patient is still with labile mood and refusing medications on and off. The issue of compliance with medication was discussed in detail. Prognosis is guarded.
--- NOTE | 2016-12-06 17:25 | CP.PCM.PN ---
<Gwendolyn Iniguez - Last Filed: 12/06/16 18:06> Subjective - Date & Time of Evaluation Date of Evaluation: 12/06/16 Time of Evaluation: 11:20 - Subjective Subjective: 51 year old female was seen at bedside with attending, Dr. Brady, regarding left heel ulcer. Patient currently not wearing offloading boots despite our recommendation. As per nurse, she continually refuses to wear them. She is NAD. Objective - Vital Signs/Intake and Output Vital Signs (last 24 hours): Temp Pulse Resp BP Pulse Ox 98.2 F 95 H 20 132/74 98 12/05/16 07:30 12/05/16 07:30 12/05/16 07:30 12/06/16 10:20 12/05/16 07:30 Intake and Output: 12/06/16 12/06/16 06:59 18:59 Intake Total 720 240 Output Total 0 Balance 720 240 - Medications Medications: Current Medications Albuterol/Ipratropium (Duoneb 3 Mg/0.5 Mg (3 Ml) Ud) 3 ml IH [id number] PRN PRN Reason: Shortness of Breath Aspirin (Aspirin Chewable) 81 mg PO DAILY [facility] Last Admin: 12/06/16 10:20 Dose: 81 mg Atorvastatin Calcium (Lipitor) 20 mg PO DIN [facility] Last Admin: 12/05/16 17:30 Dose: Not Given Clopidogrel Bisulfate (Plavix) 75 mg PO DAILY [facility] Last Admin: 12/06/16 10:20 Dose: 75 mg Docusate Sodium (Colace) 100 mg PO DAILY [facility] Last Admin: 12/06/16 10:20 Dose: 100 mg Heparin Sodium (Porcine) (Heparin) 5,000 units SC Q12 [facility] PRN Reason: Protocol Last Admin: 11/28/16 21:28 Dose: Not Given Hydromorphone HCl (Dilaudid) 0.5 mg IVP Q6H PRN PRN Reason: Pain, severe (8-10) Last Admin: 12/06/16 10:24 Dose: 0.5 mg Sodium Chloride (Sodium Chloride 0.9%) 1,000 mls @ 75 mls/hr IV .[id number] [facility] Last Admin: 12/03/16 23:27 Dose: Not Given Piperacillin Sod/Tazobactam Sod (Zosyn 3.375 In Ns 100ml) 100 mls @ 200 mls/hr IVPB Q6 [facility] PRN Reason: Protocol Stop: 12/27/16 12:01 Last Admin: 12/06/16 11:42 Dose: 200 mls/hr Insulin Detemir (Levemir) 12 unit SC HS [facility] Last Admin: 12/05/16 23:15 Dose: 12 unit Insulin Human Regular (Humulin R Low) 0 units SC ACHS [facility] PRN Reason: Protocol Last Admin: 12/06/16 11:41 Dose: Not Given Linezolid (Zyvox) 600 mg PO BID [facility] PRN Reason: Protocol Stop: 12/29/16 18:01 Last Admin: 12/06/16 11:42 Dose: Not Given Lorazepam (Ativan) 0.5 mg PO TID PRN; Protocol PRN Reason: Anxiety Last Admin: 12/04/16 21:12 Dose: 0.5 mg Metoprolol Tartrate (Lopressor) 25 mg PO BID [facility] Last Admin: 12/06/16 10:20 Dose: 25 mg Morphine Sulfate (Morphine Extended Release Tab) 30 mg PO Q12 [facility] Last Admin: 12/06/16 10:30 Dose: Not Given Olanzapine (Zyprexa Zydis) 5 mg PO HS [facility] PRN Reason: Protocol Last Admin: 12/05/16 23:50 Dose: Not Given Ondansetron HCl (Zofran Inj) 4 mg IVP Q4 PRN PRN Reason: Nausea/Vomiting Pantoprazole Sodium (Protonix Ec Tab) 40 mg PO 0600 [facility] Last Admin: 12/06/16 10:21 Dose: 40 mg Trazodone HCl (Desyrel) 50 mg PO HS [facility] Last Admin: 12/05/16 22:20 Dose: 50 mg Ziprasidone (Geodon Inj) 10 mg IM Q6 PRN; Protocol PRN Reason: Agitation Last Admin: 12/06/16 09:49 Dose: 10 mg - Labs Labs: 12/03/16 18:45 12/06/16 06:15 PT 11.6 Seconds (9.9-11.8) 11/25/16 03:00 INR 1.07 (0.93-1.08) 11/25/16 03:00 APTT 24.2 Seconds (23.7-30.8) 11/25/16 03:00 - Constitutional Appears: Well, Non-toxic, No Acute Distress - Extremities Exam Additional comments: Left lower extremity focused exam: Vasc: DP and PT pulses palpable to L foot. CFT < 3 seconds to digits x 5. Skin temperature warm to cool from proximal to distal Derm: Ulceration noted to the left heel measuring approximately 4 cm by 4 cm by 0.4 cm with exposed bone, no abscess noted, no necrotic tissue noted, mild amount of sanginous drainage noted, maceration and edema noted to the maren- wound area. Sutures noted to the proximal aspect of ulcer to left heel Ortho: Tenderness to palpation of the left heel Neuro: Gross sensation diminished - Neurological Exam Neurological Exam: Alert, Awake, Oriented x3 - Psychiatric Exam Psychiatric exam: Normal Affect, Normal Mood Assessment and Plan - Assessment and Plan (Free Text) Assessment: 51 year old female with ulceration to left heel with exposed bone and osteomyelitis Plan: Patient examined and evaluated with attending, Dr. 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 Patient to follow up with her surgeon for further wound treatment Podiatry will continue to follow patient while in house <Sheridan Brady - Last Filed: 12/07/16 18:39> Objective - Vital Signs/Intake and Output Vital Signs (last 24 hours): Temp Pulse Resp BP Pulse Ox 98.7 F 80 15 243/144 H 100 12/07/16 16:00 12/07/16 16:00 12/07/16 16:00 12/07/16 16:00 12/07/16 16:00 Intake and Output: 12/07/16 12/07/16 06:59 18:59 Intake Total 240 Balance 240 - Medications Medications: Current Medications Albuterol/Ipratropium (Duoneb 3 Mg/0.5 Mg (3 Ml) Ud) 3 ml IH [id number] PRN PRN Reason: Shortness of Breath Aspirin (Aspirin Chewable) 81 mg PO DAILY [facility] Last Admin: 12/07/16 09:15 Dose: 81 mg Atorvastatin Calcium (Lipitor) 20 mg PO DIN [facility] Last Admin: 12/06/16 17:43 Dose: Not Given Clopidogrel Bisulfate (Plavix) 75 mg PO DAILY [facility] Last Admin: 12/07/16 09:14 Dose: 75 mg Docusate Sodium (Colace) 100 mg PO BID [facility] Heparin Sodium (Porcine) (Heparin) 5,000 units SC Q12 [facility] PRN Reason: Protocol Last Admin: 11/28/16 21:28 Dose: Not Given Hydralazine HCl (Apresoline) 10 mg IVP Q6 PRN PRN Reason: Systolic Blood Pressure Hydromorphone HCl (Dilaudid) 0.5 mg IVP Q6H PRN PRN Reason: Pain, severe (8-10) Last Admin: 12/07/16 12:40 Dose: 0.5 mg Piperacillin Sod/Tazobactam Sod (Zosyn 3.375 In Ns 100ml) 100 mls @ 200 mls/hr IVPB Q6 [facility] PRN Reason: Protocol Stop: 12/27/16 12:01 Last Admin: 12/07/16 12:12 Dose: 200 mls/hr Insulin Detemir (Levemir) 12 unit SC HS [facility] Last Admin: 12/06/16 22:41 Dose: Not Given Insulin Human Regular (Humulin R Low) 0 units SC ACHS [facility] PRN Reason: Protocol Last Admin: 12/07/16 12:12 Dose: 3 units Linezolid (Zyvox) 600 mg PO BID [facility] PRN Reason: Protocol Stop: 12/29/16 18:01 Last Admin: 12/07/16 09:14 Dose: 600 mg Lorazepam (Ativan) 0.5 mg PO TID PRN; Protocol PRN Reason: Anxiety Last Admin: 12/04/16 21:12 Dose: 0.5 mg Metoclopramide HCl (Reglan) 5 mg IVP Q6 PRN PRN Reason: Nausea/Vomiting Metoprolol Tartrate (Lopressor) 25 mg PO BID [facility] Last Admin: 12/07/16 09:16 Dose: 25 mg Morphine Sulfate (Morphine Extended Release Tab) 30 mg PO Q12 [facility] Last Admin: 12/07/16 09:16 Dose: 30 mg Olanzapine (Zyprexa Zydis) 5 mg PO HS [facility] PRN Reason: Protocol Last Admin: 12/06/16 22:41 Dose: Not Given Ondansetron HCl (Zofran Inj) 4 mg IVP Q4 PRN PRN Reason: Nausea/Vomiting Pantoprazole Sodium (Protonix Ec Tab) 40 mg PO 0600 [facility] Last Admin: 12/07/16 06:26 Dose: Not Given Polyethylene Glycol (Miralax) 17 gm PO DAILY PRN PRN Reason: Constipation Last Admin: 12/07/16 15:12 Dose: 17 gm Trazodone HCl (Desyrel) 50 mg PO HS [facility] Last Admin: 12/06/16 22:41 Dose: Not Given Ziprasidone (Geodon Inj) 20 mg IM Q6 PRN; Protocol PRN Reason: Agitation - Labs Labs: 12/03/16 18:45 12/07/16 06:30 PT 11.6 Seconds (9.9-11.8) 11/25/16 03:00 INR 1.07 (0.93-1.08) 11/25/16 03:00 APTT 24.2 Seconds (23.7-30.8) 11/25/16 03:00 Attending/Attestation - Attestation I have personally seen and examined this patient.: Yes I have fully participated in the care of the patient.: Yes I have reviewed all pertinent clinical information, including history, physical exam and plan: Yes
[2016-12-06] MEDS: OLANZapine 5 mg Disintegrating Tab PO SCH (22:41)
[2016-12-06] MEDS: Insulin Detemir 100 units/ml Vial (Levemir) SC SCH (22:41)
[2016-12-07] MEDS: Piperacillin/Tazobact 3.375 gm 100 ML IVPB SCH ×4 (01:00→19:14)
[2016-12-07] MEDS: Sodium Chloride 0.9% 1,000 ML IV SCH (05:00)
[2016-12-07] MEDS: HYDROmorphone 0.5 mg/0.5 ml ISec IVP PRN ×3 (06:25→19:03)
[2016-12-07] MEDS: Pantoprazole 40 mg EC Tab PO SCH (06:26)
[2016-12-07 08:28] LABS: BILIRUBIN,TOTAL 0.5 mg/dL (0.2-1.3); CALCIUM 9.4 mg/dL (8.4-10.5); POTASSIUM 4.2 mmol/L (3.6-5.0)
[2016-12-07] MEDS: Morphine 30 mg SR Tab PO SCH ×2 (09:16→22:00)
--- NOTE | 2016-12-07 10:38 | CP.PCM.CON ---
History of Present Illness - History of Present Illness History of Present Illness: Shortly patient is 51 years old female, reported history of bipolar disorder, (most likely pt has schizoaffective disorder) but patient denied h/o mental illness, patient was admitted on the medical side for evaluation of chest pain, initially psych consult was called for evaluation of possible depressive symptoms, patient is verbal abuse towards staff, possible medication management, please see initial note for more detailed information. medical team called psychiatric f/u for this pt because pt was not making rational decisions , was refusing antibiotics, emotionally labile, pt was seen by this ticket writer on daily basis since 12/03/16. pt was followed up today, presented the same way, irritable, angry, pt was selectively mute today, pt refused to talk initially, then started to speak in [place], pt "I don't want to talk to you because after talking to you my stomach is sour". pt was medicated IM of Geodon yesterday because pt was was trying to attack RN, then said "I am leaving here. I will get the lieutenant to come and pick me up. The police will be here with guns." Patient also used terms like "bitch" and "nigger" to nurse charge rn, pt also was threatening staff "I will get the mob on you , and will use a higher power to get back at you for what you've done to me." Pt is disorganized, passive-aggressive. pt is preoccupied with pain medication and ativa only, takes IV antibiotics sporadically, this ticket writer educated pt that she is on 4times a day doses, pt was yelling "I am compliant with medications, what are you talking about?", takes abx and all meds sporadically. pt was not able to repeat back back to this ticket writer what are potential risks are if pt will be noncompliant with meds. yesterday, pt was refusing all po meds besides Ativan. medical and ID teams educating pt about poor prognosis if pt will be noncompliant with meds. as per RN pt is cursing, agitated, loud, demanding. MSE: pt alert, knows the name of the hospital, does not remember this ticket writer "I cannot see as you know". hygiene is better, today pt asked about a tooth brush, intense eye contact, speech was loud, overproductive, mood "I don't want to talk to you", affect was irritable, angry, mood incongruent, thought process is disorganized, circumstantial and tangential, thought content: pt obviously disorganized, irrational. Pt has no insight into her psychiatric illness, pt has basic understanding of her medical dx, but poor judgment, impulses unpredictable. Impression: r/o schizophrenia spectrum d/co r/o schizoaffective disorder r/o paranoid personality r/o borderline personality r/o delirium due to a [facility] passive aggressive Plan: pt has no capacity to sing AMA (pt was nota able to understand what are the consequences of being without treatment even ID and medical team as well as this wrier educated pt about) pt takes IV and PO antibiotics sporadically, educated, but pt was not receptive pt was started on zyprexa zydis 5mg hs (pt was on this medication before, pt refused, this ticket writer educated pt about the risk, benefits and alternatives of this medication) Pt needed to be medicated (ALIX rapp), will continue PRN d/w medical, ID, [facility], bilingual patient support caseworker pt has case management involved, pt does not have POA or legal guardian PT (pt refused) pt also was refusing to go to the most of the [facility] Chart from [facility] reviewed with 09/04/2016, pt was not consulted by psychiatrist there behavior description was "pt is drug seeking behavior" we will f/u and advise accordingly Past Patient History - Tetanus Immunizations Tetanus Immunization: Unknown - Past Medical History & Family History Past Medical History?: Yes - Past Social History Smoking Status: Never Smoked Alcohol: None Drugs: Denies Home Situation {Lives}: With Family - CARDIAC Hx Heart Attack: Yes Hx Hypertension: Yes - PULMONARY Hx Asthma: Yes Hx Lung Cancer: Yes - HEENT Hx HEENT Problems: Yes Other/Comment: diff vision - RENAL Hx Chronic Kidney Disease: Yes Hx Renal Failure: Yes Other/Comment: cancer - ENDOCRINE/METABOLIC Hx Diabetes Mellitus Type 2: Yes - HEMATOLOGICAL/ONCOLOGICAL Hx Anemia: Yes Hx Cancer: Yes Hx Chemotherapy: Yes - INTEGUMENTARY Other/Comment: osteomylitis r foot - MUSCULOSKELETAL/RHEUMATOLOGICAL Hx Osteomyelitis: Yes (r foot) Other/Comment: dvt rue - GASTROINTESTINAL Hx Gastrointestinal Disorders: No - GENITOURINARY/GYNECOLOGICAL Hx Genitourinary Disorders: No - PSYCHIATRIC Hx Bipolar Disorder: Yes Hx Depression: Yes Hx Substance Use: No Other/Comment: drug seeking - SURGICAL HISTORY Other/Comment: r nephrectomy/r foot. / picc left upper arm Meds Allergies/Adverse Reactions: Allergies Allergy/AdvReac Type Severity Reaction Status Date / Time chicken derived Allergy RASH Verified 12/05/16 16:21 ketorolac [From Toradol] Allergy RASH Verified 11/25/16 02:56 - Medications Medications: Current Medications Albuterol/Ipratropium (Duoneb 3 Mg/0.5 Mg (3 Ml) Ud) 3 ml IH [id number] PRN PRN Reason: Shortness of Breath Aspirin (Aspirin Chewable) 81 mg PO DAILY [facility] Last Admin: 12/07/16 09:15 Dose: 81 mg Atorvastatin Calcium (Lipitor) 20 mg PO DIN [facility] Last Admin: 12/06/16 17:43 Dose: Not Given Clopidogrel Bisulfate (Plavix) 75 mg PO DAILY [facility] Last Admin: 12/07/16 09:14 Dose: 75 mg Docusate Sodium (Colace) 100 mg PO DAILY [facility] Last Admin: 12/07/16 09:14 Dose: 100 mg Heparin Sodium (Porcine) (Heparin) 5,000 units SC Q12 MIKKI PRN Reason: Protocol Last Admin: 11/28/16 21:28 Dose: Not Given Hydromorphone HCl (Dilaudid) 0.5 mg IVP Q6H PRN PRN Reason: Pain, severe (8-10) Last Admin: 12/07/16 06:25 Dose: 0.5 mg Sodium Chloride (Sodium Chloride 0.9%) 1,000 mls @ 75 mls/hr IV .[id number] [facility] Last Admin: 12/07/16 05:00 Dose: Not Given Piperacillin Sod/Tazobactam Sod (Zosyn 3.375 In Ns 100ml) 100 mls @ 200 mls/hr IVPB Q6 MIKKI PRN Reason: Protocol Stop: 12/27/16 12:01 Last Admin: 12/07/16 06:25 Dose: 200 mls/hr Insulin Detemir (Levemir) 12 unit SC HS [facility] Last Admin: 12/06/16 22:41 Dose: Not Given Insulin Human Regular (Humulin R Low) 0 units SC ACHS MIKKI PRN Reason: Protocol Last Admin: 12/06/16 22:40 Dose: Not Given Linezolid (Zyvox) 600 mg PO BID MIKKI PRN Reason: Protocol Stop: 12/29/16 18:01 Last Admin: 12/07/16 09:14 Dose: 600 mg Lorazepam (Ativan) 0.5 mg PO TID PRN; Protocol PRN Reason: Anxiety Last Admin: 12/04/16 21:12 Dose: 0.5 mg Metoprolol Tartrate (Lopressor) 25 mg PO BID [facility] Last Admin: 12/07/16 09:16 Dose: 25 mg Morphine Sulfate (Morphine Extended Release Tab) 30 mg PO Q12 MIKKI Last Admin: 12/07/16 09:16 Dose: 30 mg Olanzapine (Zyprexa Zydis) 5 mg PO HS MIKKI PRN Reason: Protocol Last Admin: 12/06/16 22:41 Dose: Not Given Ondansetron HCl (Zofran Inj) 4 mg IVP Q4 PRN PRN Reason: Nausea/Vomiting Pantoprazole Sodium (Protonix Ec Tab) 40 mg PO 0600 [facility] Last Admin: 12/07/16 06:26 Dose: Not Given Trazodone HCl (Desyrel) 50 mg PO HS [facility] Last Admin: 12/06/16 22:41 Dose: Not Given Ziprasidone (Geodon Inj) 10 mg IM Q6 PRN; Protocol PRN Reason: Agitation Last Admin: 12/07/16 01:00 Dose: 10 mg Results - Vital Signs Recent Vital Signs: Last Vital Signs Temp 98.2 F 12/05/16 07:30 Pulse 110 H 12/07/16 09:16 Resp 20 12/05/16 07:30 BP 140/109 H 12/07/16 09:16 Pulse Ox 98 12/05/16 07:30 - Labs Result Diagrams: 12/03/16 18:45 12/07/16 06:30 Labs: Laboratory Results - last 24 hr 12/06/16 12/07/16 17:15 06:30 Sodium 143 Potassium 4.2 Chloride 106 Carbon Dioxide 25 Anion Gap 16 BUN 24 H Creatinine 1.4 Est GFR ( Amer) 48 Est GFR (Non-Af Amer) 39 POC Glucose (mg/dL) 102 Random Glucose 106 Calcium 9.4 Total Bilirubin 0.5 AST 56 H ALT 56 Alkaline Phosphatase 508 H Total Protein 7.0 Albumin 3.5 Globulin 3.5 Albumin/Globulin Ratio 1.0 L
[2016-12-07] MEDS: Insulin Reg-LOW-Coverage SC SCH ×4 (12:12→22:10)
--- NOTE | 2016-12-07 14:29 | CP.PCM.PN ---
<TRES ARTHUR - Last Filed: 12/07/16 19:55> Subjective - Date & Time of Evaluation Date of Evaluation: 12/07/16 Time of Evaluation: 09:00 - Subjective Subjective: Medicine Progress Note: Pt seen and assessed at bedside. Pt complained that she hasn't had a BM in "a few days" and that this wasn't normal for her. This was the only new complaint the pt had at this time. Pt denied headache, fever, palpitations, shortness of breath, chest pain, N/V or abdominal pain. Objective - Vital Signs/Intake and Output Vital Signs (last 24 hours): Temp Pulse Resp BP Pulse Ox 98.2 F 110 H 20 140/109 H 98 12/05/16 07:30 12/07/16 09:16 12/05/16 07:30 12/07/16 09:16 12/05/16 07:30 Intake and Output: 12/07/16 12/07/16 06:59 18:59 Intake Total 240 Balance 240 - Medications Medications: Current Medications Albuterol/Ipratropium (Duoneb 3 Mg/0.5 Mg (3 Ml) Ud) 3 ml IH [id number] PRN PRN Reason: Shortness of Breath Aspirin (Aspirin Chewable) 81 mg PO DAILY [facility] Last Admin: 12/07/16 09:15 Dose: 81 mg Atorvastatin Calcium (Lipitor) 20 mg PO DIN [facility] Last Admin: 12/06/16 17:43 Dose: Not Given Clopidogrel Bisulfate (Plavix) 75 mg PO DAILY [facility] Last Admin: 12/07/16 09:14 Dose: 75 mg Docusate Sodium (Colace) 100 mg PO BID [facility] Heparin Sodium (Porcine) (Heparin) 5,000 units SC Q12 MIKKI PRN Reason: Protocol Last Admin: 11/28/16 21:28 Dose: Not Given Hydromorphone HCl (Dilaudid) 0.5 mg IVP Q6H PRN PRN Reason: Pain, severe (8-10) Last Admin: 12/07/16 12:40 Dose: 0.5 mg Sodium Chloride (Sodium Chloride 0.9%) 1,000 mls @ 75 mls/hr IV .[id number] [facility] Last Admin: 12/07/16 05:00 Dose: Not Given Piperacillin Sod/Tazobactam Sod (Zosyn 3.375 In Ns 100ml) 100 mls @ 200 mls/hr IVPB Q6 MIKKI PRN Reason: Protocol Stop: 12/27/16 12:01 Last Admin: 12/07/16 12:12 Dose: 200 mls/hr Insulin Detemir (Levemir) 12 unit SC HS [facility] Last Admin: 12/06/16 22:41 Dose: Not Given Insulin Human Regular (Humulin R Low) 0 units SC ACHS [facility] PRN Reason: Protocol Last Admin: 12/07/16 12:12 Dose: 3 units Linezolid (Zyvox) 600 mg PO BID [facility] PRN Reason: Protocol Stop: 12/29/16 18:01 Last Admin: 12/07/16 09:14 Dose: 600 mg Lorazepam (Ativan) 0.5 mg PO TID PRN; Protocol PRN Reason: Anxiety Last Admin: 12/04/16 21:12 Dose: 0.5 mg Metoprolol Tartrate (Lopressor) 25 mg PO BID [facility] Last Admin: 12/07/16 09:16 Dose: 25 mg Morphine Sulfate (Morphine Extended Release Tab) 30 mg PO Q12 [facility] Last Admin: 12/07/16 09:16 Dose: 30 mg Olanzapine (Zyprexa Zydis) 5 mg PO HS [facility] PRN Reason: Protocol Last Admin: 12/06/16 22:41 Dose: Not Given Ondansetron HCl (Zofran Inj) 4 mg IVP Q4 PRN PRN Reason: Nausea/Vomiting Pantoprazole Sodium (Protonix Ec Tab) 40 mg PO 0600 [facility] Last Admin: 12/07/16 06:26 Dose: Not Given Polyethylene Glycol (Miralax) 17 gm PO DAILY PRN PRN Reason: Constipation Trazodone HCl (Desyrel) 50 mg PO HS [facility] Last Admin: 12/06/16 22:41 Dose: Not Given Ziprasidone (Geodon Inj) 20 mg IM Q6 PRN; Protocol PRN Reason: Agitation - Labs Labs: 12/03/16 18:45 12/07/16 06:30 PT 11.6 Seconds (9.9-11.8) 11/25/16 03:00 INR 1.07 (0.93-1.08) 11/25/16 03:00 APTT 24.2 Seconds (23.7-30.8) 11/25/16 03:00 - Constitutional Appears: No Acute Distress - Head Exam Head Exam: NORMAL INSPECTION - Eye Exam Eye Exam: EOMI - ENT Exam ENT Exam: Mucous Membranes Moist - Neck Exam Neck Exam: Full ROM - Respiratory Exam Respiratory Exam: Clear to Ausculation Bilateral, NORMAL BREATHING PATTERN. absent: Rales, Rhonchi, Wheezes, Respiratory Distress - Cardiovascular Exam Cardiovascular Exam: REGULAR RHYTHM, +S1, +S2. absent: Murmur - GI/Abdominal Exam GI & Abdominal Exam: Normal Bowel Sounds. absent: Distended, Tenderness - Extremities Exam Extremities Exam: absent: Calf Tenderness, Pedal Edema Additional comments: Wound dressing on L heel clean dry and intact - Neurological Exam Neurological Exam: Alert, Awake, Oriented x3 - Psychiatric Exam Psychiatric exam: Normal Affect, Normal Mood - Skin Skin Exam: Dry, Intact, Normal Color, Warm Assessment and Plan - Assessment and Plan (Free Text) Assessment: Ms. Kerr is a 51 yo female with a past medical history of ME, hyperlipidemia, diabetes, HTN, CKD, asthma, DVT, uterine cancer, lung cancer and thromboembolic disease S/P left heel osteo debridement who was admitted for evaluation and treatment of chest pain and left heel pain. Plan: 1. S/P Left heel ulcer debridement/osteomyelitis - Zosyn and Zyvox ID- patient encouraged to stop refusing Zyvox -pain controlled with PO morphine and IV dilaudid -wound cultures showed MRSA and amikacin sensitive proteus mirabilis -"patient should have 4-6 weeks of Zosyn and 3-4 weeks of Zyvox with weekly ESR , CRP, CBC, CMP. Would consider PO antibiotics if these trend downward", per ID -pt continues to refuse PT/OT and to wear boots recommended by podiatry -podiatry and wound care on board; added petroleum gauze dressing today -SW/case management working on acute care placement 2. Chronic Pancreatitis -pt refused levemir but received 3u of humulin -pain control with morphine and dilaudid -heart healthy diet with low fat -will continue to monitor 3. Agitation -PRN Geodon, PRN Risperidone and PRN Ativan -likely has schizoaffective disorder and patient started on zyprexa zydis 5mg HS , per psych -psychiatry following, all recs appreciated 4. Constipation - PRN Miralax added - scheduled colace 5. Thyroid Nodule -TSH wnl -asymptomatic at this time -will continue to monitor 6. Vision Changes -optho consulted and agreed to see as outpatient -will assist pt in scheduling upon d/c 7. Anemia -Iron studies within normal limits -B12 and Folate WNL -continuing to monitor with daily CBC's 8. Asthma -Duoneb q4 PRN 9. Medication Noncompliance - patient education provided - no refusals today, per nursing - will continue to educate patient on the importance of medication compliance 10. Patient Reports History of Heart and Uterine Cancer - no mention of heart cancer or labs/imaging documenting other malignancies/ treatment of said malignancies in review of [facility] records - no written record or means of attaining written record were provided by patient despite multiple inquiries - noncontrast CT of chest/abdomen/ pelvis showed no acute disease processes in heart or lungs 11. GI/DVT prophylaxis -protonix/ SCD Patient seen and case discussed with attending physician, Dr. Manuel. <Jorge Manuel - Last Filed: 12/09/16 12:28> Objective - Vital Signs/Intake and Output Vital Signs (last 24 hours): Temp Pulse Resp BP Pulse Ox 98.7 F 25 L 15 166/88 H 100 12/07/16 16:00 12/08/16 10:37 12/07/16 16:00 12/08/16 10:37 12/07/16 16:00 Intake and Output: 12/08/16 12/08/16 06:59 18:59 Intake Total 480 480 Balance 480 480 - Medications Medications: Current Medications Albuterol/Ipratropium (Duoneb 3 Mg/0.5 Mg (3 Ml) Ud) 3 ml IH [id number] PRN PRN Reason: Shortness of Breath Aspirin (Aspirin Chewable) 81 mg PO DAILY [facility] Last Admin: 12/08/16 12:40 Dose: Not Given Atorvastatin Calcium (Lipitor) 20 mg PO DIN [facility] Last Admin: 12/07/16 19:13 Dose: Not Given Clopidogrel Bisulfate (Plavix) 75 mg PO DAILY [facility] Last Admin: 12/08/16 10:37 Dose: 75 mg Docusate Sodium (Colace) 100 mg PO BID [facility] Last Admin: 12/08/16 12:40 Dose: Not Given Heparin Sodium (Porcine) (Heparin) 5,000 units SC Q12 MIKKI PRN Reason: Protocol Last Admin: 11/28/16 21:28 Dose: Not Given Hydralazine HCl (Apresoline) 10 mg IVP Q6 PRN PRN Reason: Systolic Blood Pressure Hydromorphone HCl (Dilaudid) 0.5 mg IVP Q6H PRN PRN Reason: Pain, severe (8-10) Last Admin: 12/08/16 06:44 Dose: 0.5 mg Piperacillin Sod/Tazobactam Sod (Zosyn 3.375 In Ns 100ml) 100 mls @ 200 mls/hr IVPB Q6 MIKKI PRN Reason: Protocol Stop: 12/27/16 12:01 Last Admin: 12/08/16 12:43 Dose: 200 mls/hr Sodium Chloride (Sodium Chloride 0.9%) 1,000 mls @ 100 mls/hr IV .Q10H [facility] Last Admin: 12/08/16 12:39 Dose: 100 mls/hr Insulin Detemir (Levemir) 12 unit SC HS [facility] Last Admin: 12/07/16 22:10 Dose: Not Given Insulin Human Regular (Humulin R Low) 0 units SC ACHS [facility] PRN Reason: Protocol Last Admin: 12/08/16 12:40 Dose: Not Given Linezolid (Zyvox) 600 mg PO BID [facility] PRN Reason: Protocol Stop: 12/29/16 18:01 Last Admin: 12/08/16 12:41 Dose: Not Given Lorazepam (Ativan) 0.5 mg PO TID PRN; Protocol PRN Reason: Anxiety Last Admin: 12/08/16 10:37 Dose: 0.5 mg Metoclopramide HCl (Reglan) 5 mg IVP Q6 PRN PRN Reason: Nausea/Vomiting Metoprolol Tartrate (Lopressor) 25 mg PO BID [facility] Last Admin: 12/08/16 10:37 Dose: 25 mg Morphine Sulfate (Morphine Extended Release Tab) 30 mg PO Q12 [facility] Last Admin: 12/08/16 10:32 Dose: 30 mg Olanzapine (Zyprexa Zydis) 5 mg PO HS [facility] PRN Reason: Protocol Last Admin: 12/07/16 22:00 Dose: Not Given Ondansetron HCl (Zofran Inj) 4 mg IVP Q4 PRN PRN Reason: Nausea/Vomiting Pantoprazole Sodium (Protonix Ec Tab) 40 mg PO 0600 [facility] Last Admin: 12/08/16 06:42 Dose: Not Given Polyethylene Glycol (Miralax) 17 gm PO DAILY PRN PRN Reason: Constipation Last Admin: 12/07/16 15:12 Dose: 17 gm Trazodone HCl (Desyrel) 50 mg PO HS [facility] Last Admin: 12/07/16 22:00 Dose: Not Given Ziprasidone (Geodon Inj) 20 mg IM Q6 PRN; Protocol PRN Reason: Agitation - Labs Labs: 12/08/16 11:30 12/08/16 11:30 PT 11.6 Seconds (9.9-11.8) 11/25/16 03:00 INR 1.07 (0.93-1.08) 11/25/16 03:00 APTT 24.2 Seconds (23.7-30.8) 11/25/16 03:00 Attending/Attestation - Attestation I have personally seen and examined this patient.: Yes I have fully participated in the care of the patient.: Yes I have reviewed all pertinent clinical information, including history, physical exam and plan: Yes Notes (Text): 12/08/16 16:53 Attending note; Patient seen and examined with resident. Patient is still with labile mood. crying sometimes. patient complained of nausea and vomiting. Patient also had enema and had BM. NOt doing therapy. Right arm in compression bandage. Patient is a 51 year old female with past medical history of ME, diabetes, hypertension, ?history of uterine and lung cancer ( not confirmed), chronic heel ulcer and chronic OM who was recently discharged to [facility] on iv antibiotics who presented with complaint of chest pain.workup is negative. Podiatry follow-up appreciated. Dressing changed. Off loading boots ordered. Patient also has CKD and anemia. She is on levemir and insulin ss for diabetes. not taking insulin on and off. Psychiatric reevaluation appreciated. Again she is encouraged to take her medications. Risks of medication noncompliance explained to the patient. Patient doesn't have power of insurance attorney or healthcare proxy. We'll follow up with neonatal social worker and corrections caseworker for discharge planning closely.
[2016-12-07] MEDS: POLYETHYLENE GLYCOL 3350 17 GM/Dose PACKET PO PRN (15:12)
--- NOTE | 2016-12-07 15:55 | CP.PCM.PN ---
<HiraGwendolyn - Last Filed: 12/07/16 16:25> Subjective - Date & Time of Evaluation Date of Evaluation: 12/07/16 Time of Evaluation: 13:05 - Subjective Subjective: 51 year old female was seen at bedside regarding left heel ulceration. Patient currently not wearing offloading boots. As per nurse, she has no interest in them whatsoever. She is NAD. Denies F/C/N/V/SOB. Objective - Vital Signs/Intake and Output Vital Signs (last 24 hours): Temp Pulse Resp BP Pulse Ox 98.2 F 110 H 20 140/109 H 98 12/05/16 07:30 12/07/16 09:16 12/05/16 07:30 12/07/16 09:16 12/05/16 07:30 Intake and Output: 12/07/16 12/07/16 06:59 18:59 Intake Total 240 Balance 240 - Medications Medications: Current Medications Albuterol/Ipratropium (Duoneb 3 Mg/0.5 Mg (3 Ml) Ud) 3 ml IH [id number] PRN PRN Reason: Shortness of Breath Aspirin (Aspirin Chewable) 81 mg PO DAILY [facility] Last Admin: 12/07/16 09:15 Dose: 81 mg Atorvastatin Calcium (Lipitor) 20 mg PO DIN [facility] Last Admin: 12/06/16 17:43 Dose: Not Given Clopidogrel Bisulfate (Plavix) 75 mg PO DAILY [facility] Last Admin: 12/07/16 09:14 Dose: 75 mg Docusate Sodium (Colace) 100 mg PO BID [facility] Heparin Sodium (Porcine) (Heparin) 5,000 units SC Q12 [facility] PRN Reason: Protocol Last Admin: 11/28/16 21:28 Dose: Not Given Hydromorphone HCl (Dilaudid) 0.5 mg IVP Q6H PRN PRN Reason: Pain, severe (8-10) Last Admin: 12/07/16 12:40 Dose: 0.5 mg Sodium Chloride (Sodium Chloride 0.9%) 1,000 mls @ 75 mls/hr IV .[id number] [facility] Last Admin: 12/07/16 05:00 Dose: Not Given Piperacillin Sod/Tazobactam Sod (Zosyn 3.375 In Ns 100ml) 100 mls @ 200 mls/hr IVPB Q6 [facility] PRN Reason: Protocol Stop: 12/27/16 12:01 Last Admin: 12/07/16 12:12 Dose: 200 mls/hr Insulin Detemir (Levemir) 12 unit SC [facility] Last Admin: 12/06/16 22:41 Dose: Not Given Insulin Human Regular (Humulin R Low) 0 units SC [facility] PRN Reason: Protocol Last Admin: 12/07/16 12:12 Dose: 3 units Linezolid (Zyvox) 600 mg PO BID [facility] PRN Reason: Protocol Stop: 12/29/16 18:01 Last Admin: 12/07/16 09:14 Dose: 600 mg Lorazepam (Ativan) 0.5 mg PO TID PRN; Protocol PRN Reason: Anxiety Last Admin: 12/04/16 21:12 Dose: 0.5 mg Metoprolol Tartrate (Lopressor) 25 mg PO BID [facility] Last Admin: 12/07/16 09:16 Dose: 25 mg Morphine Sulfate (Morphine Extended Release Tab) 30 mg PO Q12 [facility] Last Admin: 12/07/16 09:16 Dose: 30 mg Olanzapine (Zyprexa Zydis) 5 mg PO [facility] PRN Reason: Protocol Last Admin: 12/06/16 22:41 Dose: Not Given Ondansetron HCl (Zofran Inj) 4 mg IVP Q4 PRN PRN Reason: Nausea/Vomiting Pantoprazole Sodium (Protonix Ec Tab) 40 mg PO 0600 [facility] Last Admin: 12/07/16 06:26 Dose: Not Given Polyethylene Glycol (Miralax) 17 gm PO DAILY PRN PRN Reason: Constipation Last Admin: 12/07/16 15:12 Dose: 17 gm Trazodone HCl (Desyrel) 50 mg PO [facility] Last Admin: 12/06/16 22:41 Dose: Not Given Ziprasidone (Geodon Inj) 20 mg IM Q6 PRN; Protocol PRN Reason: Agitation - Labs Labs: 12/03/16 18:45 12/07/16 06:30 PT 11.6 Seconds (9.9-11.8) 11/25/16 03:00 INR 1.07 (0.93-1.08) 11/25/16 03:00 APTT 24.2 Seconds (23.7-30.8) 11/25/16 03:00 - Constitutional Appears: Well, Non-toxic - Extremities Exam Additional comments: Left lower extremity focused exam: Vasc: DP and PT pulses palpable to L foot. CFT < 3 seconds to digits x 5. Skin temperature warm to cool from proximal to distal Derm: Ulceration noted to the left heel measuring approximately 3.8 cm by 3.5 cm by 0.4 cm with exposed bone, no abscess noted, no necrotic tissue noted, mild amount of sanguinous drainage noted on dressing, edema noted to the maren- wound area. Sutures noted to the proximal aspect of ulcer to left heel are intact. Ortho: Mild tenderness to palpation of the left heel Neuro: Gross sensation diminished - Neurological Exam Neurological Exam: Alert, Awake, Oriented x3 - Psychiatric Exam Psychiatric exam: Normal Affect, Normal Mood Assessment and Plan - Assessment and Plan (Free Text) Assessment: 51 year old female with ulceration to left heel with exposed bone and osteomyelitis Plan: Patient examined and evaluated at bedside Discussed plan in detail with attending Dr. 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 Patient to follow up with her surgeon for further wound treatment Podiatry will continue to follow patient while in house <Sheridan Brady - Last Filed: 12/07/16 18:44> Objective - Vital Signs/Intake and Output Vital Signs (last 24 hours): Temp Pulse Resp BP Pulse Ox 98.7 F 80 15 243/144 H 100 12/07/16 16:00 12/07/16 16:00 12/07/16 16:00 12/07/16 16:00 12/07/16 16:00 Intake and Output: 12/07/16 12/07/16 06:59 18:59 Intake Total 240 Balance 240 - Medications Medications: Current Medications Albuterol/Ipratropium (Duoneb 3 Mg/0.5 Mg (3 Ml) Ud) 3 ml IH [id number] PRN PRN Reason: Shortness of Breath Aspirin (Aspirin Chewable) 81 mg PO DAILY [facility] Last Admin: 12/07/16 09:15 Dose: 81 mg Atorvastatin Calcium (Lipitor) 20 mg PO DIN [facility] Last Admin: 12/06/16 17:43 Dose: Not Given Clopidogrel Bisulfate (Plavix) 75 mg PO DAILY [facility] Last Admin: 12/07/16 09:14 Dose: 75 mg Docusate Sodium (Colace) 100 mg PO BID [facility] Heparin Sodium (Porcine) (Heparin) 5,000 units SC Q12 [facility] PRN Reason: Protocol Last Admin: 11/28/16 21:28 Dose: Not Given Hydralazine HCl (Apresoline) 10 mg IVP Q6 PRN PRN Reason: Systolic Blood Pressure Hydromorphone HCl (Dilaudid) 0.5 mg IVP Q6H PRN PRN Reason: Pain, severe (8-10) Last Admin: 12/07/16 12:40 Dose: 0.5 mg Piperacillin Sod/Tazobactam Sod (Zosyn 3.375 In Ns 100ml) 100 mls @ 200 mls/hr IVPB Q6 [facility] PRN Reason: Protocol Stop: 12/27/16 12:01 Last Admin: 12/07/16 12:12 Dose: 200 mls/hr Insulin Detemir (Levemir) 12 unit SC HS [facility] Last Admin: 12/06/16 22:41 Dose: Not Given Insulin Human Regular (Humulin R Low) 0 units SC ACHS [facility] PRN Reason: Protocol Last Admin: 12/07/16 12:12 Dose: 3 units Linezolid (Zyvox) 600 mg PO BID [facility] PRN Reason: Protocol Stop: 12/29/16 18:01 Last Admin: 12/07/16 09:14 Dose: 600 mg Lorazepam (Ativan) 0.5 mg PO TID PRN; Protocol PRN Reason: Anxiety Last Admin: 12/04/16 21:12 Dose: 0.5 mg Metoclopramide HCl (Reglan) 5 mg IVP Q6 PRN PRN Reason: Nausea/Vomiting Metoprolol Tartrate (Lopressor) 25 mg PO BID [facility] Last Admin: 12/07/16 09:16 Dose: 25 mg Morphine Sulfate (Morphine Extended Release Tab) 30 mg PO Q12 [facility] Last Admin: 12/07/16 09:16 Dose: 30 mg Olanzapine (Zyprexa Zydis) 5 mg PO HS [facility] PRN Reason: Protocol Last Admin: 12/06/16 22:41 Dose: Not Given Ondansetron HCl (Zofran Inj) 4 mg IVP Q4 PRN PRN Reason: Nausea/Vomiting Pantoprazole Sodium (Protonix Ec Tab) 40 mg PO 0600 [facility] Last Admin: 12/07/16 06:26 Dose: Not Given Polyethylene Glycol (Miralax) 17 gm PO DAILY PRN PRN Reason: Constipation Last Admin: 12/07/16 15:12 Dose: 17 gm Trazodone HCl (Desyrel) 50 mg PO HS [facility] Last Admin: 12/06/16 22:41 Dose: Not Given Ziprasidone (Geodon Inj) 20 mg IM Q6 PRN; Protocol PRN Reason: Agitation - Labs Labs: 12/03/16 18:45 12/07/16 06:30 PT 11.6 Seconds (9.9-11.8) 11/25/16 03:00 INR 1.07 (0.93-1.08) 11/25/16 03:00 APTT 24.2 Seconds (23.7-30.8) 11/25/16 03:00 Attending/Attestation - Attestation I have personally seen and examined this patient.: Yes I have fully participated in the care of the patient.: Yes I have reviewed all pertinent clinical information, including history, physical exam and plan: Yes
--- NOTE | 2016-12-07 16:08 | CP.PCM.PN ---
Subjective - Date & Time of Evaluation Date of Evaluation: 12/07/16 Time of Evaluation: 11:50 - Subjective Subjective: Comfortable, afebrile. Objective - Vital Signs/Intake and Output Vital Signs (last 24 hours): Temp Pulse Resp BP Pulse Ox 98.2 F 110 H 20 140/109 H 98 12/05/16 07:30 12/07/16 09:16 12/05/16 07:30 12/07/16 09:16 12/05/16 07:30 Intake and Output: 12/07/16 12/07/16 06:59 18:59 Intake Total 240 Balance 240 - Medications Medications: Current Medications Albuterol/Ipratropium (Duoneb 3 Mg/0.5 Mg (3 Ml) Ud) 3 ml IH [id number] PRN PRN Reason: Shortness of Breath Aspirin (Aspirin Chewable) 81 mg PO DAILY [facility] Last Admin: 12/07/16 09:15 Dose: 81 mg Atorvastatin Calcium (Lipitor) 20 mg PO DIN [facility] Last Admin: 12/06/16 17:43 Dose: Not Given Clopidogrel Bisulfate (Plavix) 75 mg PO DAILY [facility] Last Admin: 12/07/16 09:14 Dose: 75 mg Docusate Sodium (Colace) 100 mg PO BID [facility] Heparin Sodium (Porcine) (Heparin) 5,000 units SC Q12 [facility] PRN Reason: Protocol Last Admin: 11/28/16 21:28 Dose: Not Given Hydromorphone HCl (Dilaudid) 0.5 mg IVP Q6H PRN PRN Reason: Pain, severe (8-10) Last Admin: 12/07/16 12:40 Dose: 0.5 mg Sodium Chloride (Sodium Chloride 0.9%) 1,000 mls @ 75 mls/hr IV .[id number] [facility] Last Admin: 12/07/16 05:00 Dose: Not Given Piperacillin Sod/Tazobactam Sod (Zosyn 3.375 In Ns 100ml) 100 mls @ 200 mls/hr IVPB Q6 [facility] PRN Reason: Protocol Stop: 12/27/16 12:01 Last Admin: 12/07/16 12:12 Dose: 200 mls/hr Insulin Detemir (Levemir) 12 unit SC HS [facility] Last Admin: 12/06/16 22:41 Dose: Not Given Insulin Human Regular (Humulin R Low) 0 units SC ACHS [facility] PRN Reason: Protocol Last Admin: 12/07/16 12:12 Dose: 3 units Linezolid (Zyvox) 600 mg PO BID [facility] PRN Reason: Protocol Stop: 12/29/16 18:01 Last Admin: 12/07/16 09:14 Dose: 600 mg Lorazepam (Ativan) 0.5 mg PO TID PRN; Protocol PRN Reason: Anxiety Last Admin: 12/04/16 21:12 Dose: 0.5 mg Metoprolol Tartrate (Lopressor) 25 mg PO BID [facility] Last Admin: 12/07/16 09:16 Dose: 25 mg Morphine Sulfate (Morphine Extended Release Tab) 30 mg PO Q12 [facility] Last Admin: 12/07/16 09:16 Dose: 30 mg Olanzapine (Zyprexa Zydis) 5 mg PO [facility] PRN Reason: Protocol Last Admin: 12/06/16 22:41 Dose: Not Given Ondansetron HCl (Zofran Inj) 4 mg IVP Q4 PRN PRN Reason: Nausea/Vomiting Pantoprazole Sodium (Protonix Ec Tab) 40 mg PO 0600 [facility] Last Admin: 12/07/16 06:26 Dose: Not Given Polyethylene Glycol (Miralax) 17 gm PO DAILY PRN PRN Reason: Constipation Last Admin: 12/07/16 15:12 Dose: 17 gm Trazodone HCl (Desyrel) 50 mg PO HS [facility] Last Admin: 12/06/16 22:41 Dose: Not Given Ziprasidone (Geodon Inj) 20 mg IM Q6 PRN; Protocol PRN Reason: Agitation - Labs Labs: 12/03/16 18:45 12/07/16 06:30 PT 11.6 Seconds (9.9-11.8) 11/25/16 03:00 INR 1.07 (0.93-1.08) 11/25/16 03:00 APTT 24.2 Seconds (23.7-30.8) 11/25/16 03:00 - Constitutional Appears: Non-toxic, No Acute Distress - Head Exam Head Exam: NORMAL INSPECTION - Neck Exam Neck Exam: absent: Meningismus - Respiratory Exam Respiratory Exam: Decreased Breath Sounds - Cardiovascular Exam Cardiovascular Exam: +S1, +S2 - GI/Abdominal Exam GI & Abdominal Exam: Soft. absent: Tenderness Assessment and Plan - Assessment and Plan (Free Text) Plan: Assessment Probable left foot osteomyelitis (was on antibiotics prior to admission), growing staph aureus and multidrug resistant Proteus only sensitive to Zosyn, and MRSA S/P left PICC line placement dyslipidemia DM HTN history of cholecystitis chronic renal failure history of uterine cancer CAD history of depression history of DVT Plan continue Zosyn and Zyvox; reviewed Podiatry evaluation and old medical records ( patient apparently had a sample of the bone from the heel removed but no cultures seen on the medical records) will follow clinically while the patient is in the hospital; patient should have 4-6 weeks of Zosyn and Zyvox with weekly ESR, CRP, CBC, CMP we have explained to patient she needs to take her antibiotics otherwise she may lose the foot or worse even lead to (needs to take both antibiotics)
[2016-12-07] MEDS: OLANZapine 5 mg Disintegrating Tab PO SCH (22:00)
[2016-12-07] MEDS: Insulin Detemir 100 units/ml Vial (Levemir) SC SCH (22:10)
[2016-12-08] MEDS: HYDROmorphone 0.5 mg/0.5 ml ISec IVP PRN ×4 (01:12→18:12)
[2016-12-08] MEDS: Piperacillin/Tazobact 3.375 gm 100 ML IVPB SCH ×6 (06:10→23:45)
[2016-12-08] MEDS: Pantoprazole 40 mg EC Tab PO SCH (06:42)
[2016-12-08] MEDS: Morphine 30 mg SR Tab PO SCH ×2 (10:32→22:18)
[2016-12-08 11:36] LABS: ADD MANUAL DIFF? NO
[2016-12-08 11:41] LABS: BASO # 0.02 K/mm3 (0.0-2.0); BASO % 0.3 % (0.0-3.0); EOS # 0.2 (0.0-0.7); EOS % 2.8 % (1.5-5.0); GRAN # 4.59 (1.4-6.5); GRAN % 63.7 % (50.0-68.0); HEMATOCRIT 30.6 % (36.0-48.0); LYMPH # 2.1 (1.2-3.4); LYMPH % 28.7 % (22.0-35.0); MEAN CELL VOLUME 79.5 fL (80.0-105.0); MEAN CORPUSCULAR HEMOGLOBIN 26.8 pg (25.0-35.0); MEAN CORPUSCULAR HGB CONC 33.7 g/dl (31.0-37.0); MEAN PLATELET VOLUME 9.5 fl (7.0-11.0); MONO # 0.3 (0.1-0.6); MONO % 4.5 % (1.0-6.0); PLATELET COUNT 255 10^3/uL (120.0-450.0); RED CELL DISTRIBUTION WIDTH 15.8 % (11.5-14.5); WHITE BLOOD COUNT 7.2 10^3/ul (4.5-11.0)
[2016-12-08 11:47] LABS: BILIRUBIN,TOTAL 0.6 mg/dL (0.2-1.3); CALCIUM 8.8 mg/dL (8.4-10.5); POTASSIUM 3.7 mmol/L (3.6-5.0); TOTAL PROTEIN 7.3 g/dL (5.8-8.3)
[2016-12-08] MEDS ORDERED: HYDROmorphone 0.5 mg/0.5 ml ISec IVP STA (11:54)
[2016-12-08] MEDS: Sodium Chloride 0.9% 1,000 ML IV SCH ×2 (12:39→22:18)
[2016-12-08] MEDS: Insulin Reg-LOW-Coverage SC SCH ×3 (12:40→22:20)
--- NOTE | 2016-12-08 14:45 | CP.PCM.PN ---
Subjective - Date & Time of Evaluation Date of Evaluation: 12/08/16 Time of Evaluation: 11:40 - Subjective Subjective: Resting comfortably in bed, not in distress, afebrile. Objective - Vital Signs/Intake and Output Vital Signs (last 24 hours): Temp Pulse Resp BP Pulse Ox 98.7 F 76 15 178/97 H 100 12/07/16 16:00 12/07/16 19:04 12/07/16 16:00 12/07/16 19:04 12/07/16 16:00 Intake and Output: 12/08/16 12/08/16 06:59 18:59 Intake Total 480 Balance 480 - Medications Medications: Current Medications Albuterol/Ipratropium (Duoneb 3 Mg/0.5 Mg (3 Ml) Ud) 3 ml IH [id number] PRN PRN Reason: Shortness of Breath Aspirin (Aspirin Chewable) 81 mg PO DAILY [facility] Last Admin: 12/07/16 09:15 Dose: 81 mg Atorvastatin Calcium (Lipitor) 20 mg PO DIN [facility] Last Admin: 12/07/16 19:13 Dose: Not Given Clopidogrel Bisulfate (Plavix) 75 mg PO DAILY [facility] Last Admin: 12/07/16 09:14 Dose: 75 mg Docusate Sodium (Colace) 100 mg PO BID [facility] Last Admin: 12/07/16 19:13 Dose: Not Given Heparin Sodium (Porcine) (Heparin) 5,000 units SC Q12 [facility] PRN Reason: Protocol Last Admin: 11/28/16 21:28 Dose: Not Given Hydralazine HCl (Apresoline) 10 mg IVP Q6 PRN PRN Reason: Systolic Blood Pressure Hydromorphone HCl (Dilaudid) 0.5 mg IVP Q6H PRN PRN Reason: Pain, severe (8-10) Last Admin: 12/08/16 06:44 Dose: 0.5 mg Piperacillin Sod/Tazobactam Sod (Zosyn 3.375 In Ns 100ml) 100 mls @ 200 mls/hr IVPB Q6 [facility] PRN Reason: Protocol Stop: 12/27/16 12:01 Last Admin: 12/08/16 06:43 Dose: Not Given Insulin Detemir (Levemir) 12 unit SC HS [facility] Last Admin: 12/07/16 22:10 Dose: Not Given Insulin Human Regular (Humulin R Low) 0 units SC A[facility]S [facility] PRN Reason: Protocol Last Admin: 12/07/16 22:10 Dose: Not Given Linezolid (Zyvox) 600 mg PO BID [facility] PRN Reason: Protocol Stop: 12/29/16 18:01 Last Admin: 12/07/16 19:14 Dose: Not Given Lorazepam (Ativan) 0.5 mg PO TID PRN; Protocol PRN Reason: Anxiety Last Admin: 12/04/16 21:12 Dose: 0.5 mg Metoclopramide HCl (Reglan) 5 mg IVP Q6 PRN PRN Reason: Nausea/Vomiting Metoprolol Tartrate (Lopressor) 25 mg PO BID [facility] Last Admin: 12/07/16 19:04 Dose: 25 mg Morphine Sulfate (Morphine Extended Release Tab) 30 mg PO Q12 [facility] Last Admin: 12/07/16 22:00 Dose: Not Given Olanzapine (Zyprexa Zydis) 5 mg PO HS [facility] PRN Reason: Protocol Last Admin: 12/07/16 22:00 Dose: Not Given Ondansetron HCl (Zofran Inj) 4 mg IVP Q4 PRN PRN Reason: Nausea/Vomiting Pantoprazole Sodium (Protonix Ec Tab) 40 mg PO 0600 [facility] Last Admin: 12/08/16 06:42 Dose: Not Given Polyethylene Glycol (Miralax) 17 gm PO DAILY PRN PRN Reason: Constipation Last Admin: 12/07/16 15:12 Dose: 17 gm Trazodone HCl (Desyrel) 50 mg PO HS [facility] Last Admin: 12/07/16 22:00 Dose: Not Given Ziprasidone (Geodon Inj) 20 mg IM Q6 PRN; Protocol PRN Reason: Agitation - Labs Labs: 12/03/16 18:45 12/07/16 06:30 PT 11.6 Seconds (9.9-11.8) 11/25/16 03:00 INR 1.07 (0.93-1.08) 11/25/16 03:00 APTT 24.2 Seconds (23.7-30.8) 11/25/16 03:00 - Constitutional Appears: Non-toxic, No Acute Distress - Head Exam Head Exam: NORMAL INSPECTION - Neck Exam Neck Exam: absent: Meningismus - Respiratory Exam Respiratory Exam: Decreased Breath Sounds - Cardiovascular Exam Cardiovascular Exam: +S1, +S2 - GI/Abdominal Exam GI & Abdominal Exam: Soft. absent: Tenderness - Extremities Exam Additional comments: left foot with dressings in place Assessment and Plan - Assessment and Plan (Free Text) Plan: Assessment Probable left foot osteomyelitis (was on antibiotics prior to admission), growing staph aureus and multidrug resistant Proteus only sensitive to Zosyn, and MRSA S/P left PICC line placement dyslipidemia DM HTN history of cholecystitis chronic renal failure history of uterine cancer CAD history of depression history of DVT Plan continue Zosyn and Zyvox; discussed with Dr. Brady and old medical records ( patient apparently had a sample of the bone from the heel removed but no cultures seen on the medical records - patient has exposed bone) will follow clinically while the patient is in the hospital; patient should have 4-6 weeks of Zosyn and Zyvox with weekly ESR, CRP, CBC, CMP we have explained to patient she needs to take her antibiotics otherwise she may lose the foot or worse even lead to (needs to take both antibiotics)
--- NOTE | 2016-12-08 15:31 | CP.PCM.PN ---
Addendum entered and electronically signed by Tiffany Joya DPM 12/08/16 15:35 : -Pt may shower if she is able to ambulate with plastic bag to foot, is not to get dressing or left foot wet. Original Note: <Tiffany Joya - Last Filed: 12/08/16 15:26> Subjective - Date & Time of Evaluation Date of Evaluation: 12/08/16 Time of Evaluation: 15:00 - Subjective Subjective: 51 year old female pt seen at bedside today with Dr. Brady present regarding left heel ulceration. Pt seen resting in bed at time of visit, appears AAOx3 and in NAD. Denies pain or discomfort to the foot at this time. Is complaining of feeling nauseous and states she has been throwing up for 2 days. Seen without wearing prevalon boot to right foot (however boot is present in pt's bed ). Pt is requesting to shower. Objective - Vital Signs/Intake and Output Vital Signs (last 24 hours): Temp Pulse Resp BP Pulse Ox 98.7 F 25 L 15 166/88 H 100 12/07/16 16:00 12/08/16 10:37 12/07/16 16:00 12/08/16 10:37 12/07/16 16:00 Intake and Output: 12/08/16 12/08/16 06:59 18:59 Intake Total 480 480 Balance 480 480 - Medications Medications: Current Medications Albuterol/Ipratropium (Duoneb 3 Mg/0.5 Mg (3 Ml) Ud) 3 ml IH [id number] PRN PRN Reason: Shortness of Breath Aspirin (Aspirin Chewable) 81 mg PO DAILY [facility] Last Admin: 12/08/16 12:40 Dose: Not Given Atorvastatin Calcium (Lipitor) 20 mg PO DIN [facility] Last Admin: 12/07/16 19:13 Dose: Not Given Clopidogrel Bisulfate (Plavix) 75 mg PO DAILY [facility] Last Admin: 12/08/16 10:37 Dose: 75 mg Docusate Sodium (Colace) 100 mg PO BID [facility] Last Admin: 12/08/16 12:40 Dose: Not Given Heparin Sodium (Porcine) (Heparin) 5,000 units SC Q12 [facility] PRN Reason: Protocol Last Admin: 11/28/16 21:28 Dose: Not Given Hydralazine HCl (Apresoline) 10 mg IVP Q6 PRN PRN Reason: Systolic Blood Pressure Hydromorphone HCl (Dilaudid) 0.5 mg IVP Q6H PRN PRN Reason: Pain, severe (8-10) Last Admin: 12/08/16 06:44 Dose: 0.5 mg Piperacillin Sod/Tazobactam Sod (Zosyn 3.375 In Ns 100ml) 100 mls @ 200 mls/hr IVPB Q6 [facility] PRN Reason: Protocol Stop: 12/27/16 12:01 Last Admin: 12/08/16 12:43 Dose: 200 mls/hr Sodium Chloride (Sodium Chloride 0.9%) 1,000 mls @ 100 mls/hr IV .Q10H [facility] Last Admin: 12/08/16 12:39 Dose: 100 mls/hr Insulin Detemir (Levemir) 12 unit SC HS [facility] Last Admin: 12/07/16 22:10 Dose: Not Given Insulin Human Regular (Humulin R Low) 0 units SC ACHS [facility] PRN Reason: Protocol Last Admin: 12/08/16 12:40 Dose: Not Given Linezolid (Zyvox) 600 mg PO BID [facility] PRN Reason: Protocol Stop: 12/29/16 18:01 Last Admin: 12/08/16 12:41 Dose: Not Given Lorazepam (Ativan) 0.5 mg PO TID PRN; Protocol PRN Reason: Anxiety Last Admin: 12/08/16 10:37 Dose: 0.5 mg Metoclopramide HCl (Reglan) 5 mg IVP Q6 PRN PRN Reason: Nausea/Vomiting Metoprolol Tartrate (Lopressor) 25 mg PO BID [facility] Last Admin: 12/08/16 10:37 Dose: 25 mg Morphine Sulfate (Morphine Extended Release Tab) 30 mg PO Q12 [facility] Last Admin: 12/08/16 10:32 Dose: 30 mg Olanzapine (Zyprexa Zydis) 5 mg PO HS [facility] PRN Reason: Protocol Last Admin: 12/07/16 22:00 Dose: Not Given Ondansetron HCl (Zofran Inj) 4 mg IVP Q4 PRN PRN Reason: Nausea/Vomiting Pantoprazole Sodium (Protonix Ec Tab) 40 mg PO 0600 [facility] Last Admin: 12/08/16 06:42 Dose: Not Given Polyethylene Glycol (Miralax) 17 gm PO DAILY PRN PRN Reason: Constipation Last Admin: 12/07/16 15:12 Dose: 17 gm Trazodone HCl (Desyrel) 50 mg PO HS [facility] Last Admin: 12/07/16 22:00 Dose: Not Given Ziprasidone (Geodon Inj) 20 mg IM Q6 PRN; Protocol PRN Reason: Agitation - Labs Labs: 12/08/16 11:30 12/08/16 11:30 PT 11.6 Seconds (9.9-11.8) 11/25/16 03:00 INR 1.07 (0.93-1.08) 11/25/16 03:00 APTT 24.2 Seconds (23.7-30.8) 11/25/16 03:00 - Constitutional Appears: Non-toxic, No Acute Distress, Agitated - Extremities Exam Extremities Exam: absent: Calf Tenderness Additional comments: LLE exam: Dressing to left foot appears c/d/i with no strikethrough Vasc: DP & PT pulses are palpable to L foot, skin temp runs warm to cool from proximal to distal, CFT < 3 seconds to digits x 5, no pedal edema Derm: there is a full thickness ulceration noted to the left heel measuring approximately 3.8x 3.5x0.4 cm with 100% granular base (bone is covered now), no purulence, slight sero-sanguinous drained noted to dressing, no fluctuance, (-) probe to bone, 3 sutures are intact to proximal aspect of ulceration Neuro: protective pedal sensation is grossly diminished Ortho:mild tenderness to palpation of the left heel - Neurological Exam Neurological Exam: Alert, Awake, Oriented x3 - Psychiatric Exam Psychiatric exam: Agitated, Flat Affect Assessment and Plan - Assessment and Plan (Free Text) Assessment: 51 year old female with unstageable ulceration to left heel with OM Plan: Patient S&E at the bedside w/ attending Dr. Brady present. Chart, labs, vitals reviewed: afebrile, wbc 7.2 All sutures removed from left foot. Pt tolerated well without incident. Ulceration cleansed with sterile water, petroleum gauze, ABD and kerlix applied to left heel. Advised pt of importance of wearing offloading boot for healing. Pt refusing boot at this time Pt is stable from podiatry standpoint to be D/C to [facility] for per diem clerk abx for + OM Patient to follow up with her surgeon for further wound treatment Podiatry will continue to follow patient while in house <Sheridan Brady - Last Filed: 12/08/16 19:49> Objective - Vital Signs/Intake and Output Vital Signs (last 24 hours): Temp Pulse Resp BP Pulse Ox 97.8 F 83 18 175/102 H 98 12/08/16 16:00 12/08/16 16:00 12/08/16 16:00 12/08/16 16:00 12/08/16 16:00 Intake and Output: 12/08/16 12/09/16 18:59 06:59 Intake Total 480 Balance 480 - Medications Medications: Current Medications Albuterol/Ipratropium (Duoneb 3 Mg/0.5 Mg (3 Ml) Ud) 3 ml IH [id number] PRN PRN Reason: Shortness of Breath Aspirin (Aspirin Chewable) 81 mg PO DAILY [facility] Last Admin: 12/08/16 12:40 Dose: Not Given Atorvastatin Calcium (Lipitor) 20 mg PO DIN [facility] Last Admin: 12/07/16 19:13 Dose: Not Given Clopidogrel Bisulfate (Plavix) 75 mg PO DAILY [facility] Last Admin: 12/08/16 10:37 Dose: 75 mg Docusate Sodium (Colace) 100 mg PO BID [facility] Last Admin: 12/08/16 18:32 Dose: Not Given Heparin Sodium (Porcine) (Heparin) 5,000 units SC Q12 [facility] PRN Reason: Protocol Last Admin: 11/28/16 21:28 Dose: Not Given Hydralazine HCl (Apresoline) 10 mg IVP Q6 PRN PRN Reason: Systolic Blood Pressure Hydromorphone HCl (Dilaudid) 0.5 mg IVP Q6H PRN PRN Reason: Pain, severe (8-10) Last Admin: 12/08/16 18:12 Dose: 0.5 mg Piperacillin Sod/Tazobactam Sod (Zosyn 3.375 In Ns 100ml) 100 mls @ 200 mls/hr IVPB Q6 [facility] PRN Reason: Protocol Stop: 12/27/16 12:01 Last Admin: 12/08/16 18:03 Dose: 200 mls/hr Sodium Chloride (Sodium Chloride 0.9%) 1,000 mls @ 100 mls/hr IV .Q10H [facility] Last Admin: 12/08/16 12:39 Dose: 100 mls/hr Insulin Detemir (Levemir) 12 unit SC HS [facility] Last Admin: 12/07/16 22:10 Dose: Not Given Insulin Human Regular (Humulin R Low) 0 units SC ACHS [facility] PRN Reason: Protocol Last Admin: 12/08/16 18:32 Dose: Not Given Linezolid (Zyvox) 600 mg PO BID [facility] PRN Reason: Protocol Stop: 12/29/16 18:01 Last Admin: 12/08/16 18:33 Dose: Not Given Lorazepam (Ativan) 0.5 mg PO TID PRN; Protocol PRN Reason: Anxiety Last Admin: 12/08/16 10:37 Dose: 0.5 mg Metoclopramide HCl (Reglan) 5 mg IVP Q6 PRN PRN Reason: Nausea/Vomiting Last Admin: 12/08/16 11:40 Dose: 5 mg Metoprolol Tartrate (Lopressor) 25 mg PO BID [facility] Last Admin: 12/08/16 10:37 Dose: 25 mg Morphine Sulfate (Morphine Extended Release Tab) 30 mg PO Q12 [facility] Last Admin: 12/08/16 10:32 Dose: 30 mg Olanzapine (Zyprexa Zydis) 5 mg PO HS [facility] PRN Reason: Protocol Last Admin: 12/07/16 22:00 Dose: Not Given Ondansetron HCl (Zofran Inj) 4 mg IVP Q4 PRN PRN Reason: Nausea/Vomiting Pantoprazole Sodium (Protonix Ec Tab) 40 mg PO 0600 [facility] Last Admin: 12/08/16 06:42 Dose: Not Given Polyethylene Glycol (Miralax) 17 gm PO DAILY PRN PRN Reason: Constipation Last Admin: 12/07/16 15:12 Dose: 17 gm Trazodone HCl (Desyrel) 50 mg PO HS [facility] Last Admin: 12/07/16 22:00 Dose: Not Given Ziprasidone (Geodon Inj) 20 mg IM Q6 PRN; Protocol PRN Reason: Agitation - Labs Labs: 12/08/16 11:30 12/08/16 11:30 PT 11.6 Seconds (9.9-11.8) 11/25/16 03:00 INR 1.07 (0.93-1.08) 11/25/16 03:00 APTT 24.2 Seconds (23.7-30.8) 11/25/16 03:00 Attending/Attestation - Attestation I have personally seen and examined this patient.: Yes I have fully participated in the care of the patient.: Yes I have reviewed all pertinent clinical information, including history, physical exam and plan: Yes
--- NOTE | 2016-12-08 15:46 | CP.PCM.CON ---
History of Present Illness - History of Present Illness History of Present Illness: follow-up note: Shortly patient is 51 years old female, reported history of bipolar disorder, (most likely pt has schizoaffective disorder) but patient denied h/o mental illness, patient was admitted on the medical side for evaluation of chest pain, initially psych consult was called for evaluation of possible depressive symptoms, patient is verbal abuse towards staff, possible medication management, please see initial note for more detailed information. medical team called psychiatric f/u for this pt because pt was not making rational decisions , was refusing antibiotics, emotionally labile, pt was seen by this marketing writer on daily basis since 12/03/16. pt was followed up today, presented the same way, irritable, angry, pt was selectively mute, on question how pt feels today, pt said "don't you see, I do not feel well", pt c/o nausea, pain in stomach. pt then started to cry hysterically, scream, said that "I don't want to talk to you, I don't feel well ". over the weekend pt was medicated IM jordy Tong 12/06/16 because pt was was trying to attack RN, then said "I am leaving here. I will get the lieutenant to come and pick me up. The police will be here with guns." Patient also used terms like "bitch" and "nigger" to dry pan charger, pt also was threatening staff "I will get the mob on you, and will use a higher power to get back at you for what you've done to me." Pt is disorganized, passive-aggressive. pt is preoccupied with pain medication and ativan only, takes IV antibiotics sporadically, this marketing writer educated pt that she is on 4times a day doses, pt was yelling "I am compliant with medications, what are you talking about?", takes abx and all meds sporadically. pt was not able to repeat back back to this marketing writer what are potential risks are if pt will be noncompliant with meds. medical and ID teams educating pt about poor prognosis if pt will be noncompliant with meds. as per RN pt is cursing, agitated, loud, demanding. MSE: pt alert, knows the name of the hospital, does not remember this marketing writer "I cannot see as you know". hygiene is better, today pt asked about a tooth brush, intense eye contact, speech was loud, overproductive, mood "I don't want to talk to you", affect was irritable, angry, mood incongruent, thought process is disorganized, circumstantial and tangential, thought content: pt obviously disorganized, irrational. Pt has no insight into her psychiatric illness, pt has basic understanding of her medical dx, but poor judgment, impulses unpredictable. Impression: r/o schizophrenia spectrum d/co r/o schizoaffective disorder r/o paranoid personality r/o borderline personality r/o delirium due to a [facility] passive aggressive Plan: pt has no capacity to sing AMA (pt was not able to understand what are the consequences of being without treatment even ID and medical team as well as this wrier educated pt about) pt takes IV and PO antibiotics sporadically, educated, but pt was not receptive pt was started on zyprexa zydis 5mg hs (pt was on this medication before, pt refused, this marketing writer educated pt about the risk, benefits and alternatives of this medication) Pt needed to be medicated (ALIX tong), will continue PRN d/w medical, ID, [facility], correctional case manager pt has case management involved, pt does not have POA or legal guardian PT (pt refused) pt also was refusing to go to the most of the [facility] reviewed with 09/04/2016, pt was not consulted by psychiatrist there behavior description was "pt is drug seeking behavior" we will f/u and advise accordingly Past Patient History - Tetanus Immunizations Tetanus Immunization: Unknown - Past Medical History & Family History Past Medical History?: Yes - Past Social History Smoking Status: Never Smoked Alcohol: None Drugs: Denies Home Situation {Lives}: With Family - CARDIAC Hx Heart Attack: Yes Hx Hypertension: Yes - PULMONARY Hx Asthma: Yes Hx Lung Cancer: Yes - HEENT Hx HEENT Problems: Yes Other/Comment: diff vision - RENAL Hx Chronic Kidney Disease: Yes Hx Renal Failure: Yes Other/Comment: cancer - ENDOCRINE/METABOLIC Hx Diabetes Mellitus Type 2: Yes - HEMATOLOGICAL/ONCOLOGICAL Hx Anemia: Yes Hx Cancer: Yes Hx Chemotherapy: Yes - INTEGUMENTARY Other/Comment: osteomylitis r foot - MUSCULOSKELETAL/RHEUMATOLOGICAL Hx Osteomyelitis: Yes (r foot) Other/Comment: dvt rue - GASTROINTESTINAL Hx Gastrointestinal Disorders: No - GENITOURINARY/GYNECOLOGICAL Hx Genitourinary Disorders: No - PSYCHIATRIC Hx Bipolar Disorder: Yes Hx Depression: Yes Hx Substance Use: No Other/Comment: drug seeking - SURGICAL HISTORY Other/Comment: r nephrectomy/r foot. / picc left upper arm Meds Allergies/Adverse Reactions: Allergies Allergy/AdvReac Type Severity Reaction Status Date / Time chicken derived Allergy RASH Verified 12/05/16 16:21 ketorolac [From Toradol] Allergy RASH Verified 11/25/16 02:56 - Medications Medications: Current Medications Albuterol/Ipratropium (Duoneb 3 Mg/0.5 Mg (3 Ml) Ud) 3 ml IH [id number] PRN PRN Reason: Shortness of Breath Aspirin (Aspirin Chewable) 81 mg PO DAILY [facility] Last Admin: 12/08/16 12:40 Dose: Not Given Atorvastatin Calcium (Lipitor) 20 mg PO DIN [facility] Last Admin: 12/07/16 19:13 Dose: Not Given Clopidogrel Bisulfate (Plavix) 75 mg PO DAILY [facility] Last Admin: 12/08/16 10:37 Dose: 75 mg Docusate Sodium (Colace) 100 mg PO BID [facility] Last Admin: 12/08/16 12:40 Dose: Not Given Heparin Sodium (Porcine) (Heparin) 5,000 units SC Q12 [facility] PRN Reason: Protocol Last Admin: 11/28/16 21:28 Dose: Not Given Hydralazine HCl (Apresoline) 10 mg IVP Q6 PRN PRN Reason: Systolic Blood Pressure Hydromorphone HCl (Dilaudid) 0.5 mg IVP Q6H PRN PRN Reason: Pain, severe (8-10) Last Admin: 12/08/16 06:44 Dose: 0.5 mg Piperacillin Sod/Tazobactam Sod (Zosyn 3.375 In Ns 100ml) 100 mls @ 200 mls/hr IVPB Q6 [facility] PRN Reason: Protocol Stop: 12/27/16 12:01 Last Admin: 12/08/16 12:43 Dose: 200 mls/hr Sodium Chloride (Sodium Chloride 0.9%) 1,000 mls @ 100 mls/hr IV .Q10H [facility] Last Admin: 12/08/16 12:39 Dose: 100 mls/hr Insulin Detemir (Levemir) 12 unit SC [facility] Last Admin: 12/07/16 22:10 Dose: Not Given Insulin Human Regular (Humulin R Low) 0 units SC [facility] PRN Reason: Protocol Last Admin: 12/08/16 12:40 Dose: Not Given Linezolid (Zyvox) 600 mg PO BID [facility] PRN Reason: Protocol Stop: 12/29/16 18:01 Last Admin: 12/08/16 12:41 Dose: Not Given Lorazepam (Ativan) 0.5 mg PO TID PRN; Protocol PRN Reason: Anxiety Last Admin: 12/08/16 10:37 Dose: 0.5 mg Metoclopramide HCl (Reglan) 5 mg IVP Q6 PRN PRN Reason: Nausea/Vomiting Metoprolol Tartrate (Lopressor) 25 mg PO BID [facility] Last Admin: 12/08/16 10:37 Dose: 25 mg Morphine Sulfate (Morphine Extended Release Tab) 30 mg PO Q12 [facility] Last Admin: 12/08/16 10:32 Dose: 30 mg Olanzapine (Zyprexa Zydis) 5 mg PO [facility] PRN Reason: Protocol Last Admin: 12/07/16 22:00 Dose: Not Given Ondansetron HCl (Zofran Inj) 4 mg IVP Q4 PRN PRN Reason: Nausea/Vomiting Pantoprazole Sodium (Protonix Ec Tab) 40 mg PO 0600 [facility] Last Admin: 12/08/16 06:42 Dose: Not Given Polyethylene Glycol (Miralax) 17 gm PO DAILY PRN PRN Reason: Constipation Last Admin: 12/07/16 15:12 Dose: 17 gm Trazodone HCl (Desyrel) 50 mg PO [facility] Last Admin: 12/07/16 22:00 Dose: Not Given Ziprasidone (Geodon Inj) 20 mg IM Q6 PRN; Protocol PRN Reason: Agitation Results - Vital Signs Recent Vital Signs: Last Vital Signs Temp 98.7 F 12/07/16 16:00 Pulse 25 L 12/08/16 10:37 Resp 15 12/07/16 16:00 BP 166/88 H 12/08/16 10:37 Pulse Ox 100 12/07/16 16:00 - Labs Result Diagrams: 12/08/16 11:30 12/08/16 11:30 Labs: Laboratory Results - last 24 hr 12/07/16 12/08/16 12/08/16 16:29 03:50 07:22 WBC RBC Hgb Hct MCV MCH MCHC RDW Plt Count MPV Gran % Lymph % (Auto) Gray % (Auto) Eos % (Auto) Baso % (Auto) Gran # Lymph # Gray # Eos # Baso # Sodium Potassium Chloride Carbon Dioxide Anion Gap BUN Creatinine Est GFR ( Amer) Est GFR (Non-Af Amer) POC Glucose (mg/dL) 283 H 221 H 202 H Random Glucose Calcium Total Bilirubin AST ALT Alkaline Phosphatase Total Protein Albumin Globulin Albumin/Globulin Ratio Lipase 12/08/16 12/08/16 12/08/16 11:28 11:30 11:30 WBC 7.2 RBC 3.85 Hgb 10.3 L Hct 30.6 L MCV 79.5 L MCH 26.8 MCHC 33.7 RDW 15.8 H Plt Count 255 MPV 9.5 Gran % 63.7 Lymph % (Auto) 28.7 Gray % (Auto) 4.5 Eos % (Auto) 2.8 Baso % (Auto) 0.3 Gran # 4.59 Lymph # 2.1 Gray # 0.3 Eos # 0.2 Baso # 0.02 Sodium 143 Potassium 3.7 Chloride 103 Carbon Dioxide 27 Anion Gap 17 BUN 24 H Creatinine 1.3 Est GFR ( Amer) 52 Est GFR (Non-Af Amer) 43 POC Glucose (mg/dL) 213 H Random Glucose 214 H Calcium 8.8 Total Bilirubin 0.6 AST 47 H ALT 51 Alkaline Phosphatase 488 H Total Protein 7.3 Albumin 3.7 Globulin 3.7 Albumin/Globulin Ratio 1.0 L Lipase 12/08/16 11:30 WBC RBC Hgb Hct MCV MCH MCHC RDW Plt Count MPV Gran % Lymph % (Auto) Gray % (Auto) Eos % (Auto) Baso % (Auto) Gran # Lymph # Gray # Eos # Baso # Sodium Potassium Chloride Carbon Dioxide Anion Gap BUN Creatinine Est GFR ( Amer) Est GFR (Non-Af Amer) POC Glucose (mg/dL) Random Glucose Calcium Total Bilirubin AST ALT Alkaline Phosphatase Total Protein Albumin Globulin Albumin/Globulin Ratio Lipase < 10 L
--- NOTE | 2016-12-08 16:40 | CP.PCM.PN ---
<TRES ARTHUR - Last Filed: 12/08/16 16:32> Subjective - Date & Time of Evaluation Date of Evaluation: 12/08/16 Time of Evaluation: 11:00 - Subjective Subjective: Medicine Progress Note: Pt seen and assessed at bedside. Pt reports that previous constipation has resolved and that she has had a BM since her exam yesterday. Pt continues to express that her pain isn't controlled, with sporadic crying and agitation when discussed during exam. Pt denied headache, fever, chills, palpitations, shortness of breath, chest pain, N/V, abdominal pain or constipation. Objective - Vital Signs/Intake and Output Vital Signs (last 24 hours): Temp Pulse Resp BP Pulse Ox 98.7 F 25 L 15 166/88 H 100 12/07/16 16:00 12/08/16 10:37 12/07/16 16:00 12/08/16 10:37 12/07/16 16:00 Intake and Output: 12/08/16 12/08/16 06:59 18:59 Intake Total 480 480 Balance 480 480 - Medications Medications: Current Medications Albuterol/Ipratropium (Duoneb 3 Mg/0.5 Mg (3 Ml) Ud) 3 ml IH [id number] PRN PRN Reason: Shortness of Breath Aspirin (Aspirin Chewable) 81 mg PO DAILY [facility] Last Admin: 12/08/16 12:40 Dose: Not Given Atorvastatin Calcium (Lipitor) 20 mg PO DIN [facility] Last Admin: 12/07/16 19:13 Dose: Not Given Clopidogrel Bisulfate (Plavix) 75 mg PO DAILY [facility] Last Admin: 12/08/16 10:37 Dose: 75 mg Docusate Sodium (Colace) 100 mg PO BID [facility] Last Admin: 12/08/16 12:40 Dose: Not Given Heparin Sodium (Porcine) (Heparin) 5,000 units SC Q12 [facility] PRN Reason: Protocol Last Admin: 11/28/16 21:28 Dose: Not Given Hydralazine HCl (Apresoline) 10 mg IVP Q6 PRN PRN Reason: Systolic Blood Pressure Hydromorphone HCl (Dilaudid) 0.5 mg IVP Q6H PRN PRN Reason: Pain, severe (8-10) Last Admin: 12/08/16 06:44 Dose: 0.5 mg Piperacillin Sod/Tazobactam Sod (Zosyn 3.375 In Ns 100ml) 100 mls @ 200 mls/hr IVPB Q6 [facility] PRN Reason: Protocol Stop: 12/27/16 12:01 Last Admin: 12/08/16 12:43 Dose: 200 mls/hr Sodium Chloride (Sodium Chloride 0.9%) 1,000 mls @ 100 mls/hr IV .Q10H [facility] Last Admin: 12/08/16 12:39 Dose: 100 mls/hr Insulin Detemir (Levemir) 12 unit SC [facility] Last Admin: 12/07/16 22:10 Dose: Not Given Insulin Human Regular (Humulin R Low) [address] [facility] PRN Reason: Protocol Last Admin: 12/08/16 12:40 Dose: Not Given Linezolid (Zyvox) 600 mg PO BID [facility] PRN Reason: Protocol Stop: 12/29/16 18:01 Last Admin: 12/08/16 12:41 Dose: Not Given Lorazepam (Ativan) 0.5 mg PO TID PRN; Protocol PRN Reason: Anxiety Last Admin: 12/08/16 10:37 Dose: 0.5 mg Metoclopramide HCl (Reglan) 5 mg IVP Q6 PRN PRN Reason: Nausea/Vomiting Metoprolol Tartrate (Lopressor) 25 mg PO BID [facility] Last Admin: 12/08/16 10:37 Dose: 25 mg Morphine Sulfate (Morphine Extended Release Tab) 30 mg PO Q12 [facility] Last Admin: 12/08/16 10:32 Dose: 30 mg Olanzapine (Zyprexa Zydis) 5 mg PO [facility] PRN Reason: Protocol Last Admin: 12/07/16 22:00 Dose: Not Given Ondansetron HCl (Zofran Inj) 4 mg IVP Q4 PRN PRN Reason: Nausea/Vomiting Pantoprazole Sodium (Protonix Ec Tab) 40 mg PO 0600 [facility] Last Admin: 12/08/16 06:42 Dose: Not Given Polyethylene Glycol (Miralax) 17 gm PO DAILY PRN PRN Reason: Constipation Last Admin: 12/07/16 15:12 Dose: 17 gm Trazodone HCl (Desyrel) 50 mg PO [facility] Last Admin: 12/07/16 22:00 Dose: Not Given Ziprasidone (Geodon Inj) 20 mg IM Q6 PRN; Protocol PRN Reason: Agitation - Labs Labs: 12/08/16 11:30 12/08/16 11:30 PT 11.6 Seconds (9.9-11.8) 11/25/16 03:00 INR 1.07 (0.93-1.08) 11/25/16 03:00 APTT 24.2 Seconds (23.7-30.8) 11/25/16 03:00 - Constitutional Appears: No Acute Distress - Head Exam Head Exam: NORMAL INSPECTION - Eye Exam Eye Exam: EOMI, Normal appearance - ENT Exam ENT Exam: Mucous Membranes Moist, Normal Exam - Neck Exam Neck Exam: Full ROM - Respiratory Exam Respiratory Exam: Clear to Ausculation Bilateral, NORMAL BREATHING PATTERN. absent: Rales, Rhonchi, Wheezes, Respiratory Distress - Cardiovascular Exam Cardiovascular Exam: REGULAR RHYTHM, +S1, +S2. absent: Murmur - GI/Abdominal Exam GI & Abdominal Exam: Normal Bowel Sounds. absent: Distended, Tenderness - Extremities Exam Extremities Exam: absent: Calf Tenderness, Pedal Edema - Neurological Exam Neurological Exam: Alert, Awake, Oriented x3 Additional comments: pt wheelchair bound - Psychiatric Exam Psychiatric exam: Normal Affect, Normal Mood - Skin Skin Exam: Dry, Intact, Normal Color, Warm - Additional Findings Additional findings: L heel wound dressing clean, dry and intact Assessment and Plan - Assessment and Plan (Free Text) Assessment: Ms. Kerr is a 51 yo female with a past medical history of OH, hyperlipidemia, diabetes, HTN, CKD, asthma, DVT, uterine cancer, lung cancer and thromboembolic disease S/P left heel osteo debridement who was admitted for evaluation and treatment of chest pain and left heel pain. Plan: 1. S/P Left heel ulcer debridement/osteomyelitis - Zosyn and Zyvox ID- patient encouraged to stop refusing Zyvox -pain control with PO morphine and IV dilaudid -wound cultures showed MRSA and amikacin sensitive proteus mirabilis -"4-6 weeks of Zosyn and 3-4 weeks of Zyvox with weekly ESR, CRP, CBC, CMP. Would consider PO antibiotics if these trend downward", per ID -pt continues to refuse PT/OT and to wear offloading boots recommended by podiatry -podiatry and wound care on board -SW/case management working on acute care placement 2. Chronic Pancreatitis -pt refused insulin today 12/08 -pain control with morphine and dilaudid -heart healthy diet with low fat -will continue to monitor 3. Agitation -PRN Geodon, PRN Risperidone and PRN Ativan -likely has schizoaffective disorder and patient started on zyprexa zydis 5mg HS , per psych -psychiatry following, all recs appreciated 4. Constipation - added enema and glycerin suppository, per patient request with no contraindications - cont scheduled colace and PRN miralax 5. Thyroid Nodule -TSH wnl -asymptomatic at this time -will continue to monitor 6. Vision Changes -optho consulted and agreed to see as outpatient -will assist pt in scheduling upon d/c -will cont to monitor 7. Anemia -Iron studies within normal limits -B12 and Folate WNL -continuing to monitor with daily CBC's 8. Asthma -Duoneb q4 PRN 9. Medication Noncompliance - 12/08 patient refused heparin, lipitor, zyprexa, trazadone, levemir, protonix , ASA, colace, humulin, and zyvox - of note, patient has not once refused IV dilaudid - will continue to educate patient on the importance of medication compliance 10. Patient Reports History of Heart and Uterine Cancer - no mention of heart cancer or labs/imaging documenting other malignancies/ treatment of said malignancies in review of [facility] records - no written record or means of attaining written record were provided by patient despite multiple inquiries - noncontrast CT of chest/abdomen/ pelvis showed no acute disease processes in heart or lungs 11. GI/DVT prophylaxis -protonix/ SCD Patient seen and case discussed with attending physician, Dr. Manuel. <Jorge Manuel - Last Filed: 12/09/16 12:29> Objective - Vital Signs/Intake and Output Vital Signs (last 24 hours): Temp Pulse Resp BP Pulse Ox 97.2 F L 93 H 20 173/96 H 100 12/09/16 07:30 12/09/16 10:13 12/09/16 07:30 12/09/16 10:13 12/09/16 07:30 Intake and Output: 12/09/16 12/09/16 06:59 18:59 Intake Total 660 Balance 660 - Medications Medications: Current Medications Albuterol/Ipratropium (Duoneb 3 Mg/0.5 Mg (3 Ml) Ud) 3 ml IH [id number] PRN PRN Reason: Shortness of Breath Aspirin (Aspirin Chewable) 81 mg PO DAILY [facility] Last Admin: 12/09/16 10:14 Dose: 81 mg Atorvastatin Calcium (Lipitor) 20 mg PO DIN [facility] Last Admin: 12/08/16 20:45 Dose: Not Given Clopidogrel Bisulfate (Plavix) 75 mg PO DAILY [facility] Last Admin: 12/09/16 10:14 Dose: 75 mg Docusate Sodium (Colace) 100 mg PO BID [facility] Last Admin: 12/09/16 10:20 Dose: Not Given Gabapentin (Neurontin) 300 mg PO TID [facility] PRN Reason: Protocol Heparin Sodium (Porcine) (Heparin) 5,000 units SC Q12 [facility] PRN Reason: Protocol Last Admin: 11/28/16 21:28 Dose: Not Given Hydralazine HCl (Apresoline) 10 mg IVP Q6 PRN PRN Reason: Systolic Blood Pressure Hydromorphone HCl (Dilaudid) 0.5 mg IVP Q6H PRN PRN Reason: Pain, severe (8-10) Last Admin: 12/09/16 12:18 Dose: 0.5 mg Piperacillin Sod/Tazobactam Sod (Zosyn 3.375 In Ns 100ml) 100 mls @ 200 mls/hr IVPB Q6 [facility] PRN Reason: Protocol Stop: 12/27/16 12:01 Last Admin: 12/09/16 06:20 Dose: 200 mls/hr Sodium Chloride (Sodium Chloride 0.9%) 1,000 mls @ 100 mls/hr IV .Q10H [facility] Last Admin: 12/08/16 22:18 Dose: 100 mls/hr Insulin Detemir (Levemir) 12 unit SC HS [facility] Last Admin: 12/08/16 22:21 Dose: 12 unit Insulin Human Regular (Humulin R Low) 0 units SC [facility] PRN Reason: Protocol Last Admin: 12/09/16 12:16 Dose: 1 units Linezolid (Zyvox) 600 mg PO BID [facility] PRN Reason: Protocol Stop: 12/29/16 18:01 Last Admin: 07/18/17 10:16 Dose: 600 mg Lorazepam (Ativan) 0.5 mg PO TID PRN; Protocol PRN Reason: Anxiety Last Admin: 12/08/16 10:37 Dose: 0.5 mg Metoclopramide HCl (Reglan) 5 mg IVP Q6 PRN PRN Reason: Nausea/Vomiting Last Admin: 12/08/16 11:40 Dose: 5 mg Metoprolol Tartrate (Lopressor) 25 mg PO BID [facility] Last Admin: 12/09/16 10:13 Dose: 25 mg Morphine Sulfate (Morphine Extended Release Tab) 30 mg PO Q12 [facility] Last Admin: 12/09/16 10:15 Dose: 30 mg Olanzapine (Zyprexa Zydis) 5 mg PO HS [facility] PRN Reason: Protocol Last Admin: 12/08/16 22:15 Dose: Not Given Ondansetron HCl (Zofran Inj) 4 mg IVP Q4 PRN PRN Reason: Nausea/Vomiting Pantoprazole Sodium (Protonix Ec Tab) 40 mg PO 0600 [facility] Last Admin: 12/09/16 06:21 Dose: 40 mg Polyethylene Glycol (Miralax) 17 gm PO DAILY PRN PRN Reason: Constipation Last Admin: 12/07/16 15:12 Dose: 17 gm Potassium Chloride (K-Dur 20 Meq Er Tab) 40 meq PO DAILY [facility] Last Admin: 12/09/16 10:06 Dose: 40 meq Trazodone HCl (Desyrel) 50 mg PO HS [facility] Last Admin: 12/08/16 22:15 Dose: Not Given Ziprasidone (Geodon Inj) 20 mg IM Q6 PRN; Protocol PRN Reason: Agitation - Labs Labs: 12/09/16 06:30 12/09/16 06:30 PT 11.6 Seconds (9.9-11.8) 11/25/16 03:00 INR 1.07 (0.93-1.08) 11/25/16 03:00 APTT 24.2 Seconds (23.7-30.8) 11/25/16 03:00 Attending/Attestation - Attestation I have personally seen and examined this patient.: Yes I have fully participated in the care of the patient.: Yes I have reviewed all pertinent clinical information, including history, physical exam and plan: Yes Notes (Text): 12/09/16 12:29 Attending note; Patient seen and examined with resident. Patient is still with labile mood. crying sometimes. patient complained of nausea and vomiting. Patient also had enema and had BM. screaming at times. Patient is a 51 year old female with past medical history of OH, diabetes, hypertension, ?history of uterine and lung cancer ( not confirmed), chronic heel ulcer and chronic OM who was recently discharged to [facility] on iv antibiotics who presented with complaint of chest pain.workup is negative. Podiatry follow-up appreciated. Dressing changed. Off loading boots ordered. Patient also has CKD and anemia. She is on levemir and insulin ss for diabetes. not taking insulin on and off. Psychiatric reevaluation appreciated. Again she is encouraged to take her medications. Risks of medication noncompliance explained to the patient. Patient doesn't have power of prosecuting attorney or healthcare proxy. We'll follow up with social work administrator and case making machine operator for discharge planning closely.
[2016-12-08] MEDS: OLANZapine 5 mg Disintegrating Tab PO SCH ×2 (22:15→22:18)
[2016-12-08] MEDS: Insulin Detemir 100 units/ml Vial (Levemir) SC SCH (22:21)
[2016-12-09] MEDS: HYDROmorphone 0.5 mg/0.5 ml ISec IVP PRN ×4 (00:47→17:34)
[2016-12-09] MEDS: Piperacillin/Tazobact 3.375 gm 100 ML IVPB SCH ×4 (06:20→23:20)
[2016-12-09] MEDS: Pantoprazole 40 mg EC Tab PO SCH (06:21)
[2016-12-09 07:02] LABS: ADD MANUAL DIFF? NO
[2016-12-09 07:06] LABS: BASO # 0.03 K/mm3 (0.0-2.0); BASO % 0.4 % (0.0-3.0); EOS # 0.2 (0.0-0.7); EOS % 2.9 % (1.5-5.0); GRAN # 3.94 (1.4-6.5); GRAN % 51.4 % (50.0-68.0); HEMATOCRIT 29.9 % (36.0-48.0); LYMPH # 3.1 (1.2-3.4); LYMPH % 39.9 % (22.0-35.0); MEAN CELL VOLUME 79.9 fL (80.0-105.0); MEAN CORPUSCULAR HEMOGLOBIN 26.5 pg (25.0-35.0); MEAN CORPUSCULAR HGB CONC 33.1 g/dl (31.0-37.0); MEAN PLATELET VOLUME 9.2 fl (7.0-11.0); MONO # 0.4 (0.1-0.6); MONO % 5.4 % (1.0-6.0); PLATELET COUNT 254 10^3/uL (120.0-450.0); RED CELL DISTRIBUTION WIDTH 15.9 % (11.5-14.5); WHITE BLOOD COUNT 7.7 10^3/ul (4.5-11.0)
[2016-12-09 07:13] LABS: BILIRUBIN,TOTAL 0.5 mg/dL (0.2-1.3); CALCIUM 8.3 mg/dL (8.4-10.5); POTASSIUM 3.4 mmol/L (3.6-5.0); TOTAL PROTEIN 7.4 g/dL (5.8-8.3)
[2016-12-09] MEDS: Insulin Reg-LOW-Coverage SC SCH ×4 (08:24→22:45)
[2016-12-09] MEDS ORDERED: Potassium Chloride 10 mEq ER Tab PO SCH (09:45)
[2016-12-09] MEDS: Potassium Chloride 20 mEq ER Tab PO SCH (10:06)
[2016-12-09] MEDS: Morphine 30 mg SR Tab PO SCH ×2 (10:15→22:30)
--- NOTE | 2016-12-09 14:53 | PN ---
DATE: 12/09/2016 SUBJECTIVE: The patient is in bed and in no acute distress and nontoxic. No fevers or chills. PHYSICAL EXAMINATION GENERAL: The patient was seen early this morning in 571, bed 2. VITAL SIGNS: With a temperature of 97, blood pressure is 130/70, and respiratory rate of 16. HEENT: Examination of HEENT is unremarkable. NECK: Supple. CARDIOPULMONARY: Hear exam has normal S1 and S2. LUNGS: Have decreased breath sounds. ABDOMEN: Soft and nontender. LABORATORY DATA: Examination reveals a white count of 7.7, hemoglobin of 9, and platelets of 254. BUN of and creatinine of 1.2. Urinalysis is noted. Microbiology reveals that the left foot culture is Proteus mirabilis and MRSA. Review of orders revealed that the patient to be on Zosyn and Zyvox. ASSESSMENT AND PLAN: A 51-year-old female with left foot osteomyelitis with methicillin-resistant Staphylococcus aureus and high drug resistant Proteus, currently on Zyvox and Zosyn and would complete four to six weeks of antibiotics with a weekly CBC, sedimentation rate, C-reactive protein and chemistries. Chandana Acevedo MD
--- NOTE | 2016-12-09 16:15 | CP.PCM.CON ---
History of Present Illness - History of Present Illness History of Present Illness: follow-up note: Shortly patient is 51 years old female, reported history of bipolar disorder, (most likely pt has schizoaffective disorder) but patient denied h/o mental illness, patient was admitted on the medical side for evaluation of chest pain, initially psych consult was called for evaluation of possible depressive symptoms, patient is verbal abuse towards staff, possible medication management, please see initial note for more detailed information. medical team called psychiatric f/u for this pt because pt was not making rational decisions , was refusing antibiotics, emotionally labile, pt was seen by this food writer on daily basis since 12/03/16. pt was followed up today with , as well as Director of Case Management, pt presented better today, was able to have somewhat meaningful conversation. Pt was compliant with IV abx yesterday, PO pt took today one dose , she refused to have po abx yesterday because of nausea. pt was in agreement to go to the [facility], SW is on this case. pt was encouraged to be compliant with meds, pt said that she will do, will keep eye on it because pt is passive-aggressive. "I am compliant with medications, what are you talking about?", takes abx and all meds sporadically. pt was not able to repeat back back to this food writer what are potential risks are if pt will be noncompliant with meds. medical and ID teams educating pt about poor prognosis if pt will be noncompliant with meds. as per RN pt is cursing, agitated, loud, demanding. MSE: pt alert, knows the name of the hospital, month. does not remember this food writer "I cannot see as you know". hygiene is better, intense eye contact, speech was loud, overproductive, mood "I don't want to talk to you", affect was irritable, angry, mood incongruent, thought process is disorganized, circumstantial and tangential, thought content: pt obviously disorganized, irrational. Pt has no insight into her psychiatric illness, pt has basic understanding of her medical dx, but poor judgment, impulses unpredictable. Impression: r/o schizophrenia spectrum d/co r/o schizoaffective disorder r/o paranoid personality r/o borderline personality r/o delirium due to a [facility] passive aggressive Plan: pt has no capacity to sing AMA (pt was not able to understand what are the consequences of being without treatment even ID and medical team as well as this wrier educated pt about) pt takes IV and PO antibiotics sporadically, educated, pt was receptive today pt was started on zyprexa zydis 5mg hs (pt was on this medication before, pt refused, "I have no mental issues") Pt needed to be medicated (IM geodon), will continue PRN d/w medical, ID, JC, briefcase sewer pt does not have POA or legal guardian pt was in agreement to go to [facility] Chart from [facility] reviewed with 09/04/2016, pt was not consulted by psychiatrist there behavior description was "pt is drug seeking behavior" we will f/u and advise accordingly Past Patient History - Tetanus Immunizations Tetanus Immunization: Unknown - Past Medical History & Family History Past Medical History?: Yes - Past Social History Smoking Status: Never Smoked Alcohol: None Drugs: Denies Home Situation {Lives}: With Family - CARDIAC Hx Heart Attack: Yes Hx Hypertension: Yes - PULMONARY Hx Asthma: Yes Hx Lung Cancer: Yes - HEENT Hx HEENT Problems: Yes Other/Comment: diff vision - RENAL Hx Chronic Kidney Disease: Yes Hx Renal Failure: Yes Other/Comment: cancer - ENDOCRINE/METABOLIC Hx Diabetes Mellitus Type 2: Yes - HEMATOLOGICAL/ONCOLOGICAL Hx Anemia: Yes Hx Cancer: Yes Hx Chemotherapy: Yes - INTEGUMENTARY Other/Comment: osteomylitis r foot - MUSCULOSKELETAL/RHEUMATOLOGICAL Hx Osteomyelitis: Yes (r foot) Other/Comment: dvt rue - GASTROINTESTINAL Hx Gastrointestinal Disorders: No - GENITOURINARY/GYNECOLOGICAL Hx Genitourinary Disorders: No - PSYCHIATRIC Hx Bipolar Disorder: Yes Hx Depression: Yes Hx Substance Use: No Other/Comment: drug seeking - SURGICAL HISTORY Other/Comment: r nephrectomy/r foot. / picc left upper arm Meds Allergies/Adverse Reactions: Allergies Allergy/AdvReac Type Severity Reaction Status Date / Time chicken derived Allergy RASH Verified 12/05/16 16:21 ketorolac [From Toradol] Allergy RASH Verified 11/25/16 02:56 - Medications Medications: Current Medications Albuterol/Ipratropium (Duoneb 3 Mg/0.5 Mg (3 Ml) Ud) 3 ml IH [id number] PRN PRN Reason: Shortness of Breath Aspirin (Aspirin Chewable) 81 mg PO DAILY [facility] Last Admin: 12/09/16 10:14 Dose: 81 mg Atorvastatin Calcium (Lipitor) 20 mg PO DIN [facility] Last Admin: 12/08/16 20:45 Dose: Not Given Clopidogrel Bisulfate (Plavix) 75 mg PO DAILY [facility] Last Admin: 12/09/16 10:14 Dose: 75 mg Diphenhydramine HCl (Benadryl) 25 mg PO Q6 PRN PRN Reason: Itching / Pruritus Last Admin: 12/09/16 14:19 Dose: 25 mg Docusate Sodium (Colace) 100 mg PO BID [facility] Last Admin: 12/09/16 10:20 Dose: Not Given Gabapentin (Neurontin) 300 mg PO TID [facility] PRN Reason: Protocol Last Admin: 12/09/16 14:54 Dose: 300 mg Heparin Sodium (Porcine) (Heparin) 5,000 units SC Q12 [facility] PRN Reason: Protocol Last Admin: 11/28/16 21:28 Dose: Not Given Hydralazine HCl (Apresoline) 10 mg IVP Q6 PRN PRN Reason: Systolic Blood Pressure Hydromorphone HCl (Dilaudid) 0.5 mg IVP Q6H PRN PRN Reason: Pain, severe (8-10) Last Admin: 12/09/16 12:18 Dose: 0.5 mg Piperacillin Sod/Tazobactam Sod (Zosyn 3.375 In Ns 100ml) 100 mls @ 200 mls/hr IVPB Q6 [facility] PRN Reason: Protocol Stop: 12/27/16 12:01 Last Admin: 12/09/16 12:42 Dose: 200 mls/hr Sodium Chloride (Sodium Chloride 0.9%) 1,000 mls @ 100 mls/hr IV .Q10H [facility] Last Admin: 12/08/16 22:18 Dose: 100 mls/hr Insulin Detemir (Levemir) 12 unit SC HS [facility] Last Admin: 12/08/16 22:21 Dose: 12 unit Insulin Human Regular (Humulin R Low) 0 units SC ACHS [facility] PRN Reason: Protocol Last Admin: 12/09/16 12:16 Dose: 1 units Linezolid (Zyvox) 600 mg PO BID [facility] PRN Reason: Protocol Stop: 08/07/17 18:01 Last Admin: 12/09/16 10:16 Dose: 600 mg Lorazepam (Ativan) 0.5 mg PO TID PRN; Protocol PRN Reason: Anxiety Last Admin: 12/08/16 10:37 Dose: 0.5 mg Metoclopramide HCl (Reglan) 5 mg IVP Q6 PRN PRN Reason: Nausea/Vomiting Last Admin: 12/08/16 11:40 Dose: 5 mg Metoprolol Tartrate (Lopressor) 25 mg PO BID [facility] Last Admin: 12/09/16 10:13 Dose: 25 mg Morphine Sulfate (Morphine Extended Release Tab) 30 mg PO Q12 [facility] Last Admin: 12/09/16 10:15 Dose: 30 mg Olanzapine (Zyprexa Zydis) 5 mg PO HS [facility] PRN Reason: Protocol Last Admin: 12/08/16 22:15 Dose: Not Given Ondansetron HCl (Zofran Inj) 4 mg IVP Q4 PRN PRN Reason: Nausea/Vomiting Pantoprazole Sodium (Protonix Ec Tab) 40 mg PO 0600 [facility] Last Admin: 12/09/16 06:21 Dose: 40 mg Polyethylene Glycol (Miralax) 17 gm PO DAILY PRN PRN Reason: Constipation Last Admin: 12/07/16 15:12 Dose: 17 gm Potassium Chloride (K-Dur 20 Meq Er Tab) 40 meq PO DAILY [facility] Last Admin: 12/09/16 10:06 Dose: 40 meq Trazodone HCl (Desyrel) 50 mg PO HS [facility] Last Admin: 12/08/16 22:15 Dose: Not Given Ziprasidone (Geodon Inj) 20 mg IM Q6 PRN; Protocol PRN Reason: Agitation Results - Vital Signs Recent Vital Signs: Last Vital Signs Temp 97.2 F L 12/09/16 07:30 Pulse 93 H 12/09/16 10:13 Resp 20 12/09/16 07:30 BP 173/96 H 12/09/16 10:13 Pulse Ox 100 12/09/16 07:30 - Labs Result Diagrams: 12/09/16 06:30 12/09/16 06:30 Labs: Laboratory Results - last 24 hr 11/27/16 12/08/16 12/08/16 21:04 16:17 21:42 WBC RBC Hgb Hct MCV MCH MCHC RDW Plt Count MPV Gran % Lymph % (Auto) Cloud % (Auto) Eos % (Auto) Baso % (Auto) Gran # Lymph # Cloud # Eos # Baso # Sodium Potassium Chloride Carbon Dioxide Anion Gap BUN Creatinine Est GFR ( Amer) Est GFR (Non-Af Amer) POC Glucose (mg/dL) 272 H 218 H 267 H Random Glucose Calcium Total Bilirubin AST ALT Alkaline Phosphatase Total Protein Albumin Globulin Albumin/Globulin Ratio 12/09/16 12/09/16 12/09/16 06:30 06:30 07:28 WBC 7.7 RBC 3.74 Hgb 9.9 L Hct 29.9 L MCV 79.9 L MCH 26.5 MCHC 33.1 RDW 15.9 H Plt Count 254 MPV 9.2 Gran % 51.4 Lymph % (Auto) 39.9 H Cloud % (Auto) 5.4 Eos % (Auto) 2.9 Baso % (Auto) 0.4 Gran # 3.94 Lymph # 3.1 Cloud # 0.4 Eos # 0.2 Baso # 0.03 Sodium 143 Potassium 3.4 L Chloride 106 Carbon Dioxide 26 Anion Gap 14 BUN 18 Creatinine 1.2 Est GFR ( Amer) 57 Est GFR (Non-Af Amer) 47 POC Glucose (mg/dL) 186 H Random Glucose 178 H Calcium 8.3 L Total Bilirubin 0.5 AST 40 H ALT 52 Alkaline Phosphatase 502 H Total Protein 7.4 Albumin 3.7 Globulin 3.7 Albumin/Globulin Ratio 1.0 L 12/09/16 11:20 WBC RBC Hgb Hct MCV MCH MCHC RDW Plt Count MPV Gran % Lymph % (Auto) Cloud % (Auto) Eos % (Auto) Baso % (Auto) Gran # Lymph # Cloud # Eos # Baso # Sodium Potassium Chloride Carbon Dioxide Anion Gap BUN Creatinine Est GFR ( Amer) Est GFR (Non-Af Amer) POC Glucose (mg/dL) 154 H Random Glucose Calcium Total Bilirubin AST ALT Alkaline Phosphatase Total Protein Albumin Globulin Albumin/Globulin Ratio
--- NOTE | 2016-12-09 16:39 | CP.PCM.PN ---
<Tiffany Joya - Last Filed: 12/09/16 16:34> Subjective - Date & Time of Evaluation Date of Evaluation: 12/09/16 Time of Evaluation: 16:00 - Subjective Subjective: 51 year old female pt seen at bedside today with Dr. Hughes present regarding followup of left heel ulceration. Pt seen resting comfortably in bed at time of visit. Dressing to left foot seen not adhered to to foot today and patient seen not wearing offloading heel boot. Pt denies any pain or discomfort to the foot at this time. Denies any other pedal complaints today. Objective - Vital Signs/Intake and Output Vital Signs (last 24 hours): Temp Pulse Resp BP Pulse Ox 97.2 F L 93 H 20 173/96 H 100 12/09/16 07:30 12/09/16 10:13 12/09/16 07:30 12/09/16 10:13 12/09/16 07:30 Intake and Output: 12/09/16 12/09/16 06:59 18:59 Intake Total 660 960 Output Total 550 Balance 660 410 - Medications Medications: Current Medications Albuterol/Ipratropium (Duoneb 3 Mg/0.5 Mg (3 Ml) Ud) 3 ml IH [id number] PRN PRN Reason: Shortness of Breath Aspirin (Aspirin Chewable) 81 mg PO DAILY [facility] Last Admin: 12/09/16 10:14 Dose: 81 mg Atorvastatin Calcium (Lipitor) 20 mg PO DIN [facility] Last Admin: 12/08/16 20:45 Dose: Not Given Clopidogrel Bisulfate (Plavix) 75 mg PO DAILY [facility] Last Admin: 12/09/16 10:14 Dose: 75 mg Diphenhydramine HCl (Benadryl) 25 mg PO Q6 PRN PRN Reason: Itching / Pruritus Last Admin: 12/09/16 14:19 Dose: 25 mg Docusate Sodium (Colace) 100 mg PO BID [facility] Last Admin: 12/09/16 10:20 Dose: Not Given Gabapentin (Neurontin) 300 mg PO TID [facility] PRN Reason: Protocol Last Admin: 12/09/16 14:54 Dose: 300 mg Heparin Sodium (Porcine) (Heparin) 5,000 units SC Q12 [facility] PRN Reason: Protocol Last Admin: 11/28/16 21:28 Dose: Not Given Hydralazine HCl (Apresoline) 10 mg IVP Q6 PRN PRN Reason: Systolic Blood Pressure Hydromorphone HCl (Dilaudid) 0.5 mg IVP Q6H PRN PRN Reason: Pain, severe (8-10) Last Admin: 12/09/16 12:18 Dose: 0.5 mg Piperacillin Sod/Tazobactam Sod (Zosyn 3.375 In Ns 100ml) 100 mls @ 200 mls/hr IVPB Q6 [facility] PRN Reason: Protocol Stop: 12/27/16 12:01 Last Admin: 12/09/16 12:42 Dose: 200 mls/hr Sodium Chloride (Sodium Chloride 0.9%) 1,000 mls @ 100 mls/hr IV .Q10H [facility] Last Admin: 12/08/16 22:18 Dose: 100 mls/hr Insulin Detemir (Levemir) 12 unit SC HS [facility] Last Admin: 12/08/16 22:21 Dose: 12 unit Insulin Human Regular (Humulin R Low) 0 units SC ACHS [facility] PRN Reason: Protocol Last Admin: 12/09/16 12:16 Dose: 1 units Linezolid (Zyvox) 600 mg PO BID [facility] PRN Reason: Protocol Stop: 12/29/16 18:01 Last Admin: 12/09/16 10:16 Dose: 600 mg Lorazepam (Ativan) 0.5 mg PO TID PRN; Protocol PRN Reason: Anxiety Last Admin: 12/08/16 10:37 Dose: 0.5 mg Metoclopramide HCl (Reglan) 5 mg IVP Q6 PRN PRN Reason: Nausea/Vomiting Last Admin: 12/08/16 11:40 Dose: 5 mg Metoprolol Tartrate (Lopressor) 25 mg PO BID [facility] Last Admin: 12/09/16 10:13 Dose: 25 mg Morphine Sulfate (Morphine Extended Release Tab) 30 mg PO Q12 [facility] Last Admin: 12/09/16 10:15 Dose: 30 mg Olanzapine (Zyprexa Zydis) 5 mg PO HS [facility] PRN Reason: Protocol Last Admin: 12/08/16 22:15 Dose: Not Given Ondansetron HCl (Zofran Inj) 4 mg IVP Q4 PRN PRN Reason: Nausea/Vomiting Pantoprazole Sodium (Protonix Ec Tab) 40 mg PO 0600 [facility] Last Admin: 12/09/16 06:21 Dose: 40 mg Polyethylene Glycol (Miralax) 17 gm PO DAILY PRN PRN Reason: Constipation Last Admin: 12/07/16 15:12 Dose: 17 gm Potassium Chloride (K-Dur 20 Meq Er Tab) 40 meq PO DAILY [facility] Last Admin: 12/09/16 10:06 Dose: 40 meq Trazodone HCl (Desyrel) 50 mg PO HS [facility] Last Admin: 12/08/16 22:15 Dose: Not Given Ziprasidone (Geodon Inj) 20 mg IM Q6 PRN; Protocol PRN Reason: Agitation - Labs Labs: 12/09/16 06:30 12/09/16 06:30 PT 11.6 Seconds (9.9-11.8) 11/25/16 03:00 INR 1.07 (0.93-1.08) 11/25/16 03:00 APTT 24.2 Seconds (23.7-30.8) 11/25/16 03:00 - Constitutional Appears: Non-toxic, No Acute Distress - Extremities Exam Additional comments: LLE exam: Vasc: DP & PT pulses are palpable to L foot, skin temp runs warm to cool from proximal to distal, CFT < 3 seconds to digits x 5, no pedal edema Derm: there is a full thickness ulceration noted to the left heel measuring approximately 3.8x 3.5x0.4 cm with 100% granular base (bone is covered now), no purulence, slight sero-sanguinous drained noted to dressing, no fluctuance, (-) probe to bone Neuro: protective pedal sensation is grossly diminished Ortho:mild tenderness to palpation of the left heel - Neurological Exam Neurological Exam: Alert, Awake - Psychiatric Exam Psychiatric exam: Agitated, Anxious, Flat Affect Assessment and Plan - Assessment and Plan (Free Text) Assessment: 51 year old female with unstageable ulceration to left heel with OM Plan: Patient S&E at the bedside w/ attending Dr. Hughse present Chart, labs, vitals reviewed: afebrile, wbc 7.7 Left foot ulceration cleansed with sterile water, dressing applied with petroleum gauze and DSD. Again readvised pt to wear offloading prevalon boot to heels at all times while in bed, advised pt that if she continues to refuse wearing the offloading boot she may risk worsening the ulcer and infection and potential loss of limb Pt is stable from podiatry standpoint to be D/C to [facility] for [facility] abx for + OM Patient to follow up with her surgeon for further wound treatment Podiatry will continue to follow patient while in house <John PaulsammyTyler - Last Filed: 12/12/16 11:22> Objective - Vital Signs/Intake and Output Vital Signs (last 24 hours): Temp Pulse Resp BP Pulse Ox 98 F 74 18 140/77 94 L 12/11/16 16:00 12/12/16 10:46 12/11/16 16:00 12/12/16 10:46 12/11/16 16:00 Intake and Output: 12/12/16 12/12/16 06:59 18:59 Intake Total 900 Output Total 350 Balance 550 - Medications Medications: Current Medications Albuterol/Ipratropium (Duoneb 3 Mg/0.5 Mg (3 Ml) Ud) 3 ml IH [id number] PRN PRN Reason: Shortness of Breath Atorvastatin Calcium (Lipitor) 20 mg PO DIN [facility] Last Admin: 12/11/16 19:04 Dose: 20 mg Clopidogrel Bisulfate (Plavix) 75 mg PO DAILY [facility] Last Admin: 12/12/16 10:49 Dose: 75 mg Diphenhydramine HCl (Benadryl) 25 mg PO Q6 PRN PRN Reason: Itching / Pruritus Last Admin: 12/11/16 15:01 Dose: 25 mg Diphenhydramine HCl (Benadryl) 25 mg PO HS PRN PRN Reason: Insomnia Last Admin: 12/12/16 00:42 Dose: 25 mg Docusate Sodium (Colace) 100 mg PO BID [facility] Last Admin: 12/11/16 09:24 Dose: 100 mg Gabapentin (Neurontin) 300 mg PO TID [facility] PRN Reason: Protocol Last Admin: 12/12/16 10:49 Dose: 300 mg Heparin Sodium (Porcine) (Heparin) 5,000 units SC Q12 [facility] PRN Reason: Protocol Last Admin: 11/28/16 21:28 Dose: Not Given Hydralazine HCl (Apresoline) 10 mg IVP Q6 PRN PRN Reason: Systolic Blood Pressure Hydromorphone HCl (Dilaudid) 0.5 mg IVP Q4H PRN PRN Reason: Pain, severe (8-10) Last Admin: 12/12/16 10:53 Dose: 0.5 mg Piperacillin Sod/Tazobactam Sod (Zosyn 3.375 In Ns 100ml) 100 mls @ 200 mls/hr IVPB Q6 [facility] PRN Reason: Protocol Stop: 12/27/16 12:01 Last Admin: 12/12/16 05:28 Dose: 200 mls/hr Sodium Chloride (Sodium Chloride 0.9%) 1,000 mls @ 100 mls/hr IV .Q10H [facility] Last Admin: 12/12/16 10:54 Dose: Not Given Insulin Detemir (Levemir) 12 unit SC HS [facility] Last Admin: 12/11/16 22:26 Dose: 12 unit Insulin Human Regular (Humulin R Low) 0 units SC ACHS [facility] PRN Reason: Protocol Last Admin: 12/11/16 22:21 Dose: Not Given Linezolid (Zyvox) 600 mg PO BID [facility] PRN Reason: Protocol Stop: 12/29/16 18:01 Last Admin: 12/12/16 10:49 Dose: 600 mg Lorazepam (Ativan) 0.5 mg PO TID PRN; Protocol PRN Reason: Anxiety Last Admin: 12/08/16 10:37 Dose: 0.5 mg Metoclopramide HCl (Reglan) 5 mg IVP Q6 PRN PRN Reason: Nausea/Vomiting Last Admin: 12/08/16 11:40 Dose: 5 mg Metoprolol Tartrate (Lopressor) 25 mg PO BID [facility] Last Admin: 12/12/16 10:46 Dose: 25 mg Morphine Sulfate (Morphine Extended Release Tab) 30 mg PO Q12 [facility] Last Admin: 12/12/16 10:45 Dose: 30 mg Olanzapine (Zyprexa Zydis) 5 mg PO HS [facility] PRN Reason: Protocol Last Admin: 12/11/16 22:25 Dose: Not Given Ondansetron HCl (Zofran Inj) 4 mg IVP Q4 PRN PRN Reason: Nausea/Vomiting Pantoprazole Sodium (Protonix Ec Tab) 40 mg PO 0600 [facility] Last Admin: 12/12/16 05:29 Dose: 40 mg Polyethylene Glycol (Miralax) 17 gm PO DAILY PRN PRN Reason: Constipation Last Admin: 12/11/16 09:22 Dose: 17 gm Potassium Chloride (K-Dur 20 Meq Er Tab) 40 meq PO DAILY [facility] Last Admin: 12/12/16 10:50 Dose: Not Given Trazodone HCl (Desyrel) 50 mg PO HS [facility] Last Admin: 12/11/16 22:26 Dose: Not Given Ziprasidone (Geodon Inj) 20 mg IM Q6 PRN; Protocol PRN Reason: Agitation - Labs Labs: 12/12/16 06:45 12/12/16 06:45 PT 11.6 Seconds (9.9-11.8) 11/25/16 03:00 INR 1.07 (0.93-1.08) 11/25/16 03:00 APTT 24.2 Seconds (23.7-30.8) 11/25/16 03:00 Attending/Attestation - Attestation I have personally seen and examined this patient.: Yes I have fully participated in the care of the patient.: Yes I have reviewed all pertinent clinical information, including history, physical exam and plan: Yes
--- NOTE | 2016-12-09 19:17 | CP.PCM.PN ---
<TRES ARTHUR - Last Filed: 12/09/16 19:06> Subjective - Date & Time of Evaluation Date of Evaluation: 12/09/16 Time of Evaluation: 09:15 - Subjective Subjective: Medicine Progress Note: Pt seen and assessed at bedside. Pt had no new complaints at this time. She reports that she had insomnia overnight but that the benadryl she was given resolved this issue. Pt denied headache, fever, shortness of breath, chest pain , N/V, abdominal pain or constipation. Objective - Vital Signs/Intake and Output Vital Signs (last 24 hours): Temp Pulse Resp BP Pulse Ox 97.2 F L 73 20 137/78 100 12/09/16 07:30 12/09/16 17:26 12/09/16 07:30 12/09/16 17:26 12/09/16 07:30 Intake and Output: 12/09/16 12/10/16 18:59 06:59 Intake Total 960 Output Total 550 Balance 410 - Medications Medications: Current Medications Albuterol/Ipratropium (Duoneb 3 Mg/0.5 Mg (3 Ml) Ud) 3 ml IH [id number] PRN PRN Reason: Shortness of Breath Aspirin (Aspirin Chewable) 81 mg PO DAILY [facility] Last Admin: 12/09/16 10:14 Dose: 81 mg Atorvastatin Calcium (Lipitor) 20 mg PO DIN [facility] Last Admin: 12/09/16 17:20 Dose: 20 mg Clopidogrel Bisulfate (Plavix) 75 mg PO DAILY [facility] Last Admin: 12/09/16 10:14 Dose: 75 mg Diphenhydramine HCl (Benadryl) 25 mg PO Q6 PRN PRN Reason: Itching / Pruritus Last Admin: 12/09/16 14:19 Dose: 25 mg Docusate Sodium (Colace) 100 mg PO BID [facility] Last Admin: 12/09/16 10:20 Dose: Not Given Gabapentin (Neurontin) 300 mg PO TID [facility] PRN Reason: Protocol Last Admin: 12/09/16 14:54 Dose: 300 mg Heparin Sodium (Porcine) (Heparin) 5,000 units SC Q12 [facility] PRN Reason: Protocol Last Admin: 11/28/16 21:28 Dose: Not Given Hydralazine HCl (Apresoline) 10 mg IVP Q6 PRN PRN Reason: Systolic Blood Pressure Hydromorphone HCl (Dilaudid) 0.5 mg IVP Q6H PRN PRN Reason: Pain, severe (8-10) Last Admin: 12/09/16 17:34 Dose: 0.5 mg Piperacillin Sod/Tazobactam Sod (Zosyn 3.375 In Ns 100ml) 100 mls @ 200 mls/hr IVPB Q6 [facility] PRN Reason: Protocol Stop: 12/27/16 12:01 Last Admin: 12/09/16 17:26 Dose: 200 mls/hr Sodium Chloride (Sodium Chloride 0.9%) 1,000 mls @ 100 mls/hr IV .Q10H [facility] Last Admin: 12/08/16 22:18 Dose: 100 mls/hr Insulin Detemir (Levemir) 12 unit SC HS [facility] Last Admin: 12/08/16 22:21 Dose: 12 unit Insulin Human Regular (Humulin R Low) 0 units SC ACHS [facility] PRN Reason: Protocol Last Admin: 12/09/16 12:16 Dose: 1 units Linezolid (Zyvox) 600 mg PO BID [facility] PRN Reason: Protocol Stop: 12/29/16 18:01 Last Admin: 12/09/16 10:16 Dose: 600 mg Lorazepam (Ativan) 0.5 mg PO TID PRN; Protocol PRN Reason: Anxiety Last Admin: 12/08/16 10:37 Dose: 0.5 mg Metoclopramide HCl (Reglan) 5 mg IVP Q6 PRN PRN Reason: Nausea/Vomiting Last Admin: 12/08/16 11:40 Dose: 5 mg Metoprolol Tartrate (Lopressor) 25 mg PO BID [facility] Last Admin: 12/09/16 17:26 Dose: 25 mg Morphine Sulfate (Morphine Extended Release Tab) 30 mg PO Q12 [facility] Last Admin: 12/09/16 10:15 Dose: 30 mg Olanzapine (Zyprexa Zydis) 5 mg PO HS [facility] PRN Reason: Protocol Last Admin: 12/08/16 22:15 Dose: Not Given Ondansetron HCl (Zofran Inj) 4 mg IVP Q4 PRN PRN Reason: Nausea/Vomiting Pantoprazole Sodium (Protonix Ec Tab) 40 mg PO 0600 [facility] Last Admin: 12/09/16 06:21 Dose: 40 mg Polyethylene Glycol (Miralax) 17 gm PO DAILY PRN PRN Reason: Constipation Last Admin: 12/07/16 15:12 Dose: 17 gm Potassium Chloride (K-Dur 20 Meq Er Tab) 40 meq PO DAILY [facility] Last Admin: 12/09/16 10:06 Dose: 40 meq Trazodone HCl (Desyrel) 50 mg PO HS [facility] Last Admin: 12/08/16 22:15 Dose: Not Given Ziprasidone (Geodon Inj) 20 mg IM Q6 PRN; Protocol PRN Reason: Agitation - Labs Labs: 12/09/16 06:30 12/09/16 06:30 PT 11.6 Seconds (9.9-11.8) 11/25/16 03:00 INR 1.07 (0.93-1.08) 11/25/16 03:00 APTT 24.2 Seconds (23.7-30.8) 11/25/16 03:00 - Constitutional Appears: No Acute Distress - Head Exam Head Exam: NORMAL INSPECTION - Eye Exam Eye Exam: EOMI, Normal appearance - ENT Exam ENT Exam: Mucous Membranes Moist, Normal Exam - Neck Exam Neck Exam: Full ROM - Respiratory Exam Respiratory Exam: Clear to Ausculation Bilateral, NORMAL BREATHING PATTERN. absent: Rales, Rhonchi, Wheezes, Respiratory Distress - Cardiovascular Exam Cardiovascular Exam: REGULAR RHYTHM, RRR, +S1, +S2 - GI/Abdominal Exam GI & Abdominal Exam: Normal Bowel Sounds. absent: Distended, Tenderness - Extremities Exam Extremities Exam: absent: Calf Tenderness, Pedal Edema Additional comments: L heel ulcer wound dressing clean dry and intact - Neurological Exam Neurological Exam: Alert, Awake, Oriented x3 - Psychiatric Exam Psychiatric exam: Normal Affect, Normal Mood - Skin Skin Exam: Dry, Intact, Normal Color, Warm Assessment and Plan - Assessment and Plan (Free Text) Assessment: Ms. Kerr is a 51 yo female with a past medical history of VA, hyperlipidemia, diabetes, HTN, CKD, asthma, DVT, uterine cancer, lung cancer and thromboembolic disease S/P left heel osteomyelitis debridement who was admitted for evaluation and treatment of chest pain and left heel pain. Plan: 1. S/P Left heel ulcer debridement/osteomyelitis - Zosyn and Zyvox ID, patient compliant with both on 12/09 -pain control with PO morphine and IV dilaudid -wound cultures showed MRSA and amikacin sensitive proteus mirabilis -"4-6 weeks of Zosyn and 3-4 weeks of Zyvox with weekly ESR, CRP, CBC, CMP. Would consider PO antibiotics if these trend downward", per ID -pt continues to refuse PT/OT and to wear offloading boots recommended by podiatry -podiatry and wound care on board -SW/case management working on acute care placement 2. Chronic Pancreatitis -pt given 3 units of humulin and 12 units of levimir -pain control with morphine and dilaudid -heart healthy diet with low fat -will continue to monitor 3. Agitation -PRN Geodon, PRN Risperidone and PRN Ativan -zyprexa zydis 5mg HS, per psych -psychiatry following, all recs appreciated 4. Constipation - cont scheduled colace and PRN miralax 5. Thyroid Nodule -TSH wnl -asymptomatic at this time -will continue to monitor 6. Vision Changes -optho consulted and agreed to see as outpatient -will assist pt in scheduling upon d/c -will cont to monitor 7. Anemia -Iron studies within normal limits -B12 and Folate WNL -continuing to monitor with daily CBC's 8. Asthma -Duoneb q4 PRN 9. Medication Noncompliance - 12/09 patient refused zyprexa and trazadone. - of note, patient has not refused IV dilaudid - will continue to educate patient on the importance of medication compliance with all prescribed medications 10. Patient Reports History of Heart and Uterine Cancer - no mention of heart cancer or labs/imaging documenting other malignancies/ treatment of said malignancies in review of [facility] records - no written record or means of attaining written record were provided by patient despite multiple inquiries - noncontrast CT of chest/abdomen/ pelvis showed no acute disease processes in heart or lungs 11. GI/DVT prophylaxis -protonix/ SCD Patient seen and case discussed with attending physician, Dr. Manuel. <Jorge Manuel - Last Filed: 12/13/16 11:42> Objective - Vital Signs/Intake and Output Vital Signs (last 24 hours): Temp Pulse Resp BP Pulse Ox 97.5 F L 71 18 144/80 100 12/12/16 18:09 12/12/16 18:14 12/12/16 18:09 12/12/16 18:14 12/12/16 18:09 Intake and Output: 12/13/16 12/13/16 06:59 18:59 Intake Total 840 Balance 840 - Medications Medications: Current Medications Albuterol/Ipratropium (Duoneb 3 Mg/0.5 Mg (3 Ml) Ud) 3 ml IH [id number] PRN PRN Reason: Shortness of Breath Atorvastatin Calcium (Lipitor) 20 mg PO DIN [facility] Last Admin: 12/12/16 18:10 Dose: 20 mg Clopidogrel Bisulfate (Plavix) 75 mg PO DAILY [facility] Last Admin: 12/13/16 09:12 Dose: 75 mg Diphenhydramine HCl (Benadryl) 25 mg PO Q6 PRN PRN Reason: Itching / Pruritus Last Admin: 12/12/16 13:10 Dose: 25 mg Diphenhydramine HCl (Benadryl) 25 mg PO HS PRN PRN Reason: Insomnia Last Admin: 12/13/16 00:16 Dose: 25 mg Docusate Sodium (Colace) 100 mg PO BID [facility] Last Admin: 12/11/16 09:24 Dose: 100 mg Gabapentin (Neurontin) 300 mg PO TID [facility] PRN Reason: Protocol Last Admin: 12/13/16 09:14 Dose: 300 mg Heparin Sodium (Porcine) (Heparin) 5,000 units SC Q12 [facility] PRN Reason: Protocol Last Admin: 11/28/16 21:28 Dose: Not Given Hydralazine HCl (Apresoline) 10 mg IVP Q6 PRN PRN Reason: Systolic Blood Pressure Hydromorphone HCl (Dilaudid) 0.5 mg IVP Q4H PRN PRN Reason: Pain, severe (8-10) Last Admin: 12/13/16 10:25 Dose: 0.5 mg Piperacillin Sod/Tazobactam Sod (Zosyn 3.375 In Ns 100ml) 100 mls @ 200 mls/hr IVPB Q6 [facility] PRN Reason: Protocol Stop: 12/27/16 12:01 Last Admin: 12/13/16 05:13 Dose: 200 mls/hr Sodium Chloride (Sodium Chloride 0.9%) 1,000 mls @ 100 mls/hr IV .Q10H [facility] Last Admin: 12/13/16 04:37 Dose: Not Given Insulin Detemir (Levemir) 12 unit SC HS [facility] Last Admin: 12/12/16 21:37 Dose: 12 unit Insulin Human Regular (Humulin R Low) 0 units SC [facility] PRN Reason: Protocol Last Admin: 12/13/16 08:35 Dose: 4 units Linezolid (Zyvox) 600 mg PO BID [facility] PRN Reason: Protocol Stop: 12/29/16 18:01 Last Admin: 12/13/16 09:15 Dose: 600 mg Lorazepam (Ativan) 0.5 mg PO TID PRN; Protocol PRN Reason: Anxiety Last Admin: 12/08/16 10:37 Dose: 0.5 mg Metoclopramide HCl (Reglan) 5 mg IVP Q6 PRN PRN Reason: Nausea/Vomiting Last Admin: 12/08/16 11:40 Dose: 5 mg Metoprolol Tartrate (Lopressor) 25 mg PO BID [facility] Last Admin: 12/13/16 09:13 Dose: 25 mg Morphine Sulfate (Morphine Extended Release Tab) 30 mg PO Q12 [facility] Last Admin: 12/13/16 09:13 Dose: 30 mg Olanzapine (Zyprexa Zydis) 5 mg PO [facility] PRN Reason: Protocol Last Admin: 12/13/16 00:15 Dose: 5 mg Ondansetron HCl (Zofran Inj) 4 mg IVP Q4 PRN PRN Reason: Nausea/Vomiting Pantoprazole Sodium (Protonix Ec Tab) 40 mg PO 0600 [facility] Last Admin: 12/13/16 05:12 Dose: 40 mg Polyethylene Glycol (Miralax) 17 gm PO DAILY PRN PRN Reason: Constipation Last Admin: 12/13/16 09:12 Dose: 17 gm Potassium Chloride (K-Dur 20 Meq Er Tab) 40 meq PO DAILY [facility] Last Admin: 12/13/16 09:14 Dose: 40 meq Trazodone HCl (Desyrel) 50 mg PO [facility] Last Admin: 12/13/16 04:37 Dose: Not Given Ziprasidone (Geodon Inj) 20 mg IM Q6 PRN; Protocol PRN Reason: Agitation - Labs Labs: 12/13/16 05:20 12/13/16 05:20 PT 11.6 Seconds (9.9-11.8) 11/25/16 03:00 INR 1.07 (0.93-1.08) 11/25/16 03:00 APTT 24.2 Seconds (23.7-30.8) 11/25/16 03:00 Attending/Attestation - Attestation I have personally seen and examined this patient.: Yes I have fully participated in the care of the patient.: Yes I have reviewed all pertinent clinical information, including history, physical exam and plan: Yes Notes (Text): 12/13/16 11:31 Attending note; Patient seen and examined with resident. Patient is still with labile mood. crying sometimes. Patient is a 51 year old female with past medical history of VA, diabetes, hypertension, ?history of uterine and lung cancer ( not confirmed), chronic heel ulcer and chronic OM who was recently discharged to [facility] on iv antibiotics who presented with complaint of chest pain.workup is negative. Podiatry follow-up appreciated. Dressing changed. Off loading boots ordered. Patient also has CKD and anemia. She is on levemir and insulin ss for diabetes. not taking insulin on and off. Psychiatric reevaluation appreciated. Again she is encouraged to take her medications. Risks of medication noncompliance explained to the patient. case discussed with case hardener Sushma zheng and perinatal social worker Kevin Crockett in detail.
[2016-12-09] MEDS: OLANZapine 5 mg Disintegrating Tab PO SCH (22:44)
[2016-12-09] MEDS: Insulin Detemir 100 units/ml Vial (Levemir) SC SCH (22:46)
[2016-12-10] MEDS: HYDROmorphone 0.5 mg/0.5 ml ISec IVP PRN ×5 (00:13→21:21)
[2016-12-10] MEDS: Piperacillin/Tazobact 3.375 gm 100 ML IVPB SCH ×3 (05:30→17:38)
[2016-12-10] MEDS: Pantoprazole 40 mg EC Tab PO SCH (06:50)
[2016-12-10 07:48] LABS: ADD MANUAL DIFF? NO
[2016-12-10 07:55] LABS: BASO # 0.03 K/mm3 (0.0-2.0); BASO % 0.5 % (0.0-3.0); EOS # 0.3 (0.0-0.7); GRAN # 3.08 (1.4-6.5); GRAN % 49.6 % (50.0-68.0); HEMATOCRIT 29.7 % (36.0-48.0); LYMPH # 2.5 (1.2-3.4); LYMPH % 39.8 % (22.0-35.0); MEAN CELL VOLUME 80.5 fL (80.0-105.0); MEAN CORPUSCULAR HGB CONC 32.3 g/dl (31.0-37.0); MEAN PLATELET VOLUME 9.2 fl (7.0-11.0); MONO # 0.4 (0.1-0.6); MONO % 6.1 % (1.0-6.0); PLATELET COUNT 235 10^3/uL (120.0-450.0); RED CELL DISTRIBUTION WIDTH 15.8 % (11.5-14.5); WHITE BLOOD COUNT 6.2 10^3/ul (4.5-11.0)
[2016-12-10 08:09] LABS: BILIRUBIN,TOTAL 0.6 mg/dL (0.2-1.3); CALCIUM 8.5 mg/dL (8.4-10.5); TOTAL PROTEIN 6.6 g/dL (5.8-8.3)
[2016-12-10] MEDS: Insulin Reg-LOW-Coverage SC SCH ×3 (08:22→17:16)
--- NOTE | 2016-12-10 10:26 | CP.PCM.PCO ---
Physician Communication Note - Physician Communication Note Physician Communication Note: no acute issues, pt refused po abx, will f/u tomorrow
[2016-12-10] MEDS: Potassium Chloride 20 mEq ER Tab PO SCH (11:09)
[2016-12-10] MEDS: Morphine 30 mg SR Tab PO SCH (11:10)
--- NOTE | 2016-12-10 15:18 | CP.PCM.PN ---
Subjective - Date & Time of Evaluation Date of Evaluation: 12/10/16 Time of Evaluation: 14:30 - Subjective Subjective: 51 year old female pt seen at bedside today regarding followup of left heel ulceration. Pt seen resting comfortably in bed at time of visit. Dressing to left foot appears clean dry and intact. Pt seen not wearing offloading boot to left heel again. Denies f/n/v/c/sob/cp at this time. Denies pain or discomfort to the foot, however pt is requesting nails to be cut today. Denies any other problems today. Objective - Vital Signs/Intake and Output Vital Signs (last 24 hours): Temp Pulse Resp BP Pulse Ox 97.2 F L 79 20 149/80 100 12/09/16 07:30 12/10/16 11:08 12/09/16 07:30 12/10/16 11:08 12/09/16 07:30 Intake and Output: 12/10/16 12/10/16 06:59 18:59 Intake Total 800 Output Total 250 Balance 550 - Medications Medications: Current Medications Albuterol/Ipratropium (Duoneb 3 Mg/0.5 Mg (3 Ml) Ud) 3 ml IH [id number] PRN PRN Reason: Shortness of Breath Aspirin (Aspirin Chewable) 81 mg PO DAILY [facility] Last Admin: 12/10/16 11:07 Dose: 81 mg Atorvastatin Calcium (Lipitor) 20 mg PO DIN [facility] Last Admin: 12/09/16 17:20 Dose: 20 mg Clopidogrel Bisulfate (Plavix) 75 mg PO DAILY [facility] Last Admin: 12/10/16 11:08 Dose: 75 mg Diphenhydramine HCl (Benadryl) 25 mg PO Q6 PRN PRN Reason: Itching / Pruritus Last Admin: 12/09/16 14:19 Dose: 25 mg Diphenhydramine HCl (Benadryl) 25 mg PO HS PRN PRN Reason: Insomnia Last Admin: 12/10/16 02:57 Dose: 25 mg Docusate Sodium (Colace) 100 mg PO BID [facility] Last Admin: 12/10/16 14:36 Dose: Not Given Gabapentin (Neurontin) 300 mg PO TID [facility] PRN Reason: Protocol Last Admin: 12/10/16 11:07 Dose: 300 mg Heparin Sodium (Porcine) (Heparin) 5,000 units SC Q12 [facility] PRN Reason: Protocol Last Admin: 11/28/16 21:28 Dose: Not Given Hydralazine HCl (Apresoline) 10 mg IVP Q6 PRN PRN Reason: Systolic Blood Pressure Hydromorphone HCl (Dilaudid) 0.5 mg IVP Q6H PRN PRN Reason: Pain, severe (8-10) Last Admin: 12/10/16 12:35 Dose: 0.5 mg Piperacillin Sod/Tazobactam Sod (Zosyn 3.375 In Ns 100ml) 100 mls @ 200 mls/hr IVPB Q6 [facility] PRN Reason: Protocol Stop: 12/27/16 12:01 Last Admin: 12/10/16 11:11 Dose: 200 mls/hr Sodium Chloride (Sodium Chloride 0.9%) 1,000 mls @ 100 mls/hr IV .Q10H [facility] Last Admin: 12/08/16 22:18 Dose: 100 mls/hr Insulin Detemir (Levemir) 12 unit SC HS [facility] Last Admin: 12/09/16 22:46 Dose: Not Given Insulin Human Regular (Humulin R Low) 0 units SC ACHS [facility] PRN Reason: Protocol Last Admin: 12/10/16 12:24 Dose: 4 units Linezolid (Zyvox) 600 mg PO BID [facility] PRN Reason: Protocol Stop: 12/29/16 18:01 Last Admin: 12/10/16 11:10 Dose: 600 mg Lorazepam (Ativan) 0.5 mg PO TID PRN; Protocol PRN Reason: Anxiety Last Admin: 12/08/16 10:37 Dose: 0.5 mg Metoclopramide HCl (Reglan) 5 mg IVP Q6 PRN PRN Reason: Nausea/Vomiting Last Admin: 12/08/16 11:40 Dose: 5 mg Metoprolol Tartrate (Lopressor) 25 mg PO BID [facility] Last Admin: 12/10/16 11:08 Dose: 25 mg Morphine Sulfate (Morphine Extended Release Tab) 30 mg PO Q12 [facility] Last Admin: 12/10/16 11:10 Dose: 30 mg Olanzapine (Zyprexa Zydis) 5 mg PO HS [facility] PRN Reason: Protocol Last Admin: 12/09/16 22:44 Dose: Not Given Ondansetron HCl (Zofran Inj) 4 mg IVP Q4 PRN PRN Reason: Nausea/Vomiting Pantoprazole Sodium (Protonix Ec Tab) 40 mg PO 0600 [facility] Last Admin: 12/10/16 06:50 Dose: 40 mg Polyethylene Glycol (Miralax) 17 gm PO DAILY PRN PRN Reason: Constipation Last Admin: 12/07/16 15:12 Dose: 17 gm Potassium Chloride (K-Dur 20 Meq Er Tab) 40 meq PO DAILY [facility] Last Admin: 12/10/16 11:09 Dose: 40 meq Trazodone HCl (Desyrel) 50 mg PO HS [facility] Last Admin: 12/09/16 22:47 Dose: Not Given Ziprasidone (Geodon Inj) 20 mg IM Q6 PRN; Protocol PRN Reason: Agitation - Labs Labs: 12/10/16 07:30 12/10/16 07:30 PT 11.6 Seconds (9.9-11.8) 11/25/16 03:00 INR 1.07 (0.93-1.08) 11/25/16 03:00 APTT 24.2 Seconds (23.7-30.8) 11/25/16 03:00 - Constitutional Appears: Non-toxic, No Acute Distress - Extremities Exam Extremities Exam: absent: Calf Tenderness Additional comments: LLE exam: Vasc: DP & PT pulses are palpable to L foot, skin temp runs warm to cool from proximal to distal, CFT < 3 seconds to digits x 5, no pedal edema Derm: there is a full thickness ulceration noted to the left heel measuring approximately 3.8x 3.5x0.4 cm with 100% granular base, negative probe to bone, no purulence, slight sero-sanguinous drained noted to dressing, no fluctuance Ortho:mild tenderness to palpation of the left heel - Neurological Exam Neurological Exam: Alert, Awake - Psychiatric Exam Psychiatric exam: Flat Affect Assessment and Plan - Assessment and Plan (Free Text) Assessment: 51 year old female with unstageable ulceration to left heel with OM Plan: Patient S&E at the bedside Plan discussed with attending Dr. Brady Chart, labs, vitals reviewed: afebrile, wbc 6.2 Left foot ulceration cleansed with sterile water, dressing applied with petroleum gauze and DSD. Again discussed with pt the importance of strict use of wearing offloading heel cushion to bed at all times when in bed (pt non-compliant) Again reminded pt of potential worsening of ulceration or potential loss of limb if she is not compliant. Pt is stable from podiatry standpoint to be D/C to [facility] for long-term abx for + OM c/w IV abx as per ID Patient to follow up with her surgeon for further wound treatment Podiatry will continue to follow patient while in house
--- NOTE | 2016-12-10 18:11 | CP.PCM.PN ---
<TRES ARTHUR - Last Filed: 12/10/16 18:05> Subjective - Date & Time of Evaluation Date of Evaluation: 12/10/16 Time of Evaluation: 10:00 - Subjective Subjective: Medicine Progress Note: Pt seen and assessed at bedside. Pt complained of increased pain and stated that the current pain regimen was not adequate. PT discussed and agreed to new pain regimen with medicine team. Pt denied headache, fever, shortness of breath , chest pain, N/V, abdominal pain or constipation. Objective - Vital Signs/Intake and Output Vital Signs (last 24 hours): Temp Pulse Resp BP Pulse Ox 98.6 F 74 16 137/82 100 12/10/16 16:00 12/10/16 17:38 12/10/16 16:00 12/10/16 17:38 12/10/16 16:00 Intake and Output: 12/10/16 12/10/16 06:59 18:59 Intake Total 800 600 Output Total 250 Balance 550 600 - Medications Medications: Current Medications Albuterol/Ipratropium (Duoneb 3 Mg/0.5 Mg (3 Ml) Ud) 3 ml IH [id number] PRN PRN Reason: Shortness of Breath Aspirin (Aspirin Chewable) 81 mg PO DAILY [facility] Last Admin: 12/10/16 11:07 Dose: 81 mg Atorvastatin Calcium (Lipitor) 20 mg PO DIN [facility] Last Admin: 12/10/16 17:32 Dose: 20 mg Clopidogrel Bisulfate (Plavix) 75 mg PO DAILY [facility] Last Admin: 12/10/16 11:08 Dose: 75 mg Diphenhydramine HCl (Benadryl) 25 mg PO Q6 PRN PRN Reason: Itching / Pruritus Last Admin: 12/09/16 14:19 Dose: 25 mg Diphenhydramine HCl (Benadryl) 25 mg PO HS PRN PRN Reason: Insomnia Last Admin: 12/10/16 02:57 Dose: 25 mg Docusate Sodium (Colace) 100 mg PO BID [facility] Last Admin: 12/10/16 14:36 Dose: Not Given Gabapentin (Neurontin) 300 mg PO TID [facility] PRN Reason: Protocol Last Admin: 12/10/16 17:32 Dose: 300 mg Heparin Sodium (Porcine) (Heparin) 5,000 units SC Q12 [facility] PRN Reason: Protocol Last Admin: 11/28/16 21:28 Dose: Not Given Hydralazine HCl (Apresoline) 10 mg IVP Q6 PRN PRN Reason: Systolic Blood Pressure Hydromorphone HCl (Dilaudid) 0.5 mg IVP Q4H PRN PRN Reason: Pain, severe (8-10) Last Admin: 12/10/16 17:16 Dose: 0.5 mg Piperacillin Sod/Tazobactam Sod (Zosyn 3.375 In Ns 100ml) 100 mls @ 200 mls/hr IVPB Q6 [facility] PRN Reason: Protocol Stop: 12/27/16 12:01 Last Admin: 12/10/16 17:38 Dose: 200 mls/hr Sodium Chloride (Sodium Chloride 0.9%) 1,000 mls @ 100 mls/hr IV .Q10H [facility] Last Admin: 12/08/16 22:18 Dose: 100 mls/hr Insulin Detemir (Levemir) 12 unit SC HS [facility] Last Admin: 12/09/16 22:46 Dose: Not Given Insulin Human Regular (Humulin R Low) 0 units SC ACHS [facility] PRN Reason: Protocol Last Admin: 12/10/16 17:16 Dose: 2 units Linezolid (Zyvox) 600 mg PO BID [facility] PRN Reason: Protocol Stop: 12/29/16 18:01 Last Admin: 12/10/16 17:33 Dose: 600 mg Lorazepam (Ativan) 0.5 mg PO TID PRN; Protocol PRN Reason: Anxiety Last Admin: 12/08/16 10:37 Dose: 0.5 mg Metoclopramide HCl (Reglan) 5 mg IVP Q6 PRN PRN Reason: Nausea/Vomiting Last Admin: 12/08/16 11:40 Dose: 5 mg Metoprolol Tartrate (Lopressor) 25 mg PO BID [facility] Last Admin: 12/10/16 17:38 Dose: 25 mg Morphine Sulfate (Morphine Extended Release Tab) 30 mg PO Q12 [facility] Last Admin: 12/10/16 11:10 Dose: 30 mg Olanzapine (Zyprexa Zydis) 5 mg PO HS [facility] PRN Reason: Protocol Last Admin: 12/09/16 22:44 Dose: Not Given Ondansetron HCl (Zofran Inj) 4 mg IVP Q4 PRN PRN Reason: Nausea/Vomiting Pantoprazole Sodium (Protonix Ec Tab) 40 mg PO 0600 [facility] Last Admin: 12/10/16 06:50 Dose: 40 mg Polyethylene Glycol (Miralax) 17 gm PO DAILY PRN PRN Reason: Constipation Last Admin: 12/07/16 15:12 Dose: 17 gm Potassium Chloride (K-Dur 20 Meq Er Tab) 40 meq PO DAILY [facility] Last Admin: 12/10/16 11:09 Dose: 40 meq Trazodone HCl (Desyrel) 50 mg PO HS [facility] Last Admin: 12/09/16 22:47 Dose: Not Given Ziprasidone (Geodon Inj) 20 mg IM Q6 PRN; Protocol PRN Reason: Agitation - Labs Labs: 12/10/16 07:30 12/10/16 07:30 PT 11.6 Seconds (9.9-11.8) 11/25/16 03:00 INR 1.07 (0.93-1.08) 11/25/16 03:00 APTT 24.2 Seconds (23.7-30.8) 11/25/16 03:00 - Constitutional Appears: No Acute Distress - Head Exam Head Exam: NORMAL INSPECTION - Eye Exam Eye Exam: EOMI, Normal appearance - ENT Exam ENT Exam: Mucous Membranes Moist, Normal Exam - Neck Exam Neck Exam: Full ROM - Respiratory Exam Respiratory Exam: Clear to Ausculation Bilateral, NORMAL BREATHING PATTERN. absent: Rales, Rhonchi, Wheezes, Respiratory Distress - Cardiovascular Exam Cardiovascular Exam: REGULAR RHYTHM, RRR, +S1, +S2. absent: Murmur - GI/Abdominal Exam GI & Abdominal Exam: Normal Bowel Sounds. absent: Tenderness - Extremities Exam Extremities Exam: absent: Calf Tenderness, Pedal Edema Additional comments: L heel wound dressing clean, dry and intact. - Neurological Exam Neurological Exam: Alert, Awake, CN II-XII Intact, Normal Gait, Oriented x3 - Psychiatric Exam Psychiatric exam: Normal Affect, Normal Mood - Skin Skin Exam: Dry, Intact, Normal Color, Warm Assessment and Plan - Assessment and Plan (Free Text) Assessment: Ms. Kerr is a 51 yo female with a past medical history of NH, hyperlipidemia, diabetes, HTN, CKD, asthma, DVT, uterine cancer, lung cancer and thromboembolic disease S/P left heel osteomyelitis debridement who was admitted for evaluation and treatment of chest pain and left heel pain. Plan: 1. S/P Left heel ulcer debridement/osteomyelitis - Zosyn and Zyvox ID, patient compliant with both on 12/10 -pain control with PO morphine and IV dilaudid; Dilaudid increased from Q6 to Q4 at the same dose for better pain control -wound cultures showed MRSA and amikacin sensitive proteus mirabilis -"4-6 weeks of Zosyn and 3-4 weeks of Zyvox with weekly ESR, CRP, CBC, CMP. Would consider PO antibiotics if these trend downward", per ID -pt continues to refuse PT/OT and to wear offloading boots recommended by podiatry -podiatry and wound care on board -SW/case management working on acute care placement; discharge from hospital delayed due to patient refusal to all accepting rehab facilities thus far 2. Chronic Pancreatitis -pt given 8 units of humulin on 12/10 and refused levemir; most recent blood sugar 341 -pain control with morphine and dilaudid; Dilaudid increased from Q6 to Q4 at the same dose for better pain control -heart healthy diet with low fat -will continue to monitor 3. Agitation -PRN Geodon, PRN Risperidone and PRN Ativan -zyprexa zydis 5mg HS, per psych; refused on 12/10 -psychiatry following, all recs appreciated 4. Constipation - cont scheduled colace and PRN miralax 5. Thyroid Nodule -TSH wnl -asymptomatic at this time -will continue to monitor 6. Vision Changes -optho consulted and agreed to see as outpatient -will assist pt in scheduling upon d/c -will cont to monitor 7. Anemia -Iron studies within normal limits -B12 and Folate WNL -continuing to monitor with daily CBC's 8. Asthma -Duoneb q4 PRN 9. Medication Noncompliance - 12/10 patient refused levemir, zyprexa and trazadone. - of note, patient has not refused IV dilaudid - will continue to educate patient on the importance of medication compliance with all prescribed medications 10. Patient Reports History of Heart and Uterine Cancer - no mention of heart cancer or labs/imaging documenting other malignancies/ treatment of said malignancies in review of [facility] records - no written record or means of attaining written record were provided by patient despite multiple inquiries - noncontrast CT of chest/abdomen/ pelvis showed no acute disease processes in heart or lungs 11. GI/DVT prophylaxis -protonix/ SCD Patient seen and case discussed with attending physician, Dr. Sands. <Mao Sands - Last Filed: 01/22/17 16:53> Objective - Vital Signs/Intake and Output Vital Signs (last 24 hours): Temp Pulse Resp BP Pulse Ox 98.1 F 80 20 140/80 96 12/24/16 08:00 12/24/16 08:00 12/24/16 08:00 12/24/16 08:00 12/24/16 08:00 - Labs Labs: 12/24/16 08:00 12/22/16 06:30 PT 11.6 Seconds (9.9-11.8) 11/25/16 03:00 INR 1.07 (0.93-1.08) 11/25/16 03:00 APTT 24.2 Seconds (23.7-30.8) 11/25/16 03:00 Attending/Attestation - Attestation I have personally seen and examined this patient.: Yes I have fully participated in the care of the patient.: Yes I have reviewed all pertinent clinical information, including history, physical exam and plan: Yes Notes (Text): 51 yo female with a past medical history of NH, hyperlipidemia, diabetes, HTN, CKD, asthma, DVT, uterine cancer, lung cancer and thromboembolic disease S/P left heel osteomyelitis debridement who was admitted for evaluation and treatment of chest pain and left heel pain. Plan: 1. S/P Left heel ulcer debridement/osteomyelitis - Zosyn and Zyvox ID, patient compliant with both on 12/10 -SW/case management working on acute care placement; discharge from hospital delayed due to patient refusal to all accepting rehab facilities thus far 2. Chronic Pancreatitis -pt given 8 units of humulin on 12/10 and refused levemir; most recent blood sugar 341 -pain control with morphine and dilaudid; Dilaudid increased from Q6 to Q4 at the same dose for better pain control -heart healthy diet with low fat -will continue to monitor 3. Agitation -PRN Geodon, PRN Risperidone and PRN Ativan -zyprexa zydis 5mg HS, per psych; refused on 12/10 -psychiatry following, all recs appreciated 4. Constipation - cont scheduled colace and PRN miralax 5. Thyroid Nodule -TSH wnl -asymptomatic at this time -will continue to monitor as outpatient 6. Vision Changes -optho consulted and agreed to see as outpatient -will assist pt in scheduling upon d/c -will cont to monitor 7. Medication Noncompliance - 12/10 patient refused levemir, zyprexa and trazadone. - of note, patient has not refused IV dilaudid - will continue to educate patient on the importance of medication compliance with all prescribed medications 8. Patient Reports History of Heart and Uterine Cancer - no mention of heart cancer or labs/imaging documenting other malignancies/ treatment of said malignancies in review of [facility] records - no written record or means of attaining written record were provided by patient despite multiple inquiries - noncontrast CT of chest/abdomen/ pelvis showed no acute disease processes in heart or lungs
[2016-12-11] MEDS: OLANZapine 5 mg Disintegrating Tab PO SCH ×2 (00:08→22:25)
[2016-12-11] MEDS: Piperacillin/Tazobact 3.375 gm 100 ML IVPB SCH ×4 (00:14→19:04)
[2016-12-11] MEDS: Morphine 30 mg SR Tab PO SCH ×3 (00:14→22:26)
[2016-12-11] MEDS: Sodium Chloride 0.9% 1,000 ML IV SCH ×2 (00:14→12:14)
[2016-12-11] MEDS: Insulin Reg-LOW-Coverage SC SCH ×6 (00:15→22:21)
[2016-12-11] MEDS: Insulin Detemir 100 units/ml Vial (Levemir) SC SCH ×2 (00:15→22:26)
[2016-12-11] MEDS: HYDROmorphone 0.5 mg/0.5 ml ISec IVP PRN ×5 (01:03→20:23)
--- NOTE | 2016-12-11 02:45 | PN ---
DATE: 12/10/2016 SUBJECTIVE: The patient seen earlier this morning in room 571, bed 2. No fevers. No chills. PHYSICAL EXAMINATION VITAL SIGNS: Temperature is 98, blood pressure is 140/90, respiratory rate of 16. HEENT: Unremarkable. NECK: Supple. LUNGS: Decreased breath sounds. HEART: Normal S1 and S2. ABDOMEN: Soft, nontender. LABORATORY DATA: Reveals a white count of 6.2, hemoglobin of 9. Chemistries reveal a BUN of 19, creatinine of 1.5. LFTs are mildly elevated and review of orders reveal the patient to be on Zosyn. ASSESSMENT AND PLAN: She is a 51-year-old female with left foot osteomyelitis with methicillin-resistant Staphylococcus aureus and resistant Proteus, currently on Zyvox and Zosyn and would complete four to six weeks of therapy with a weekly CBC *------* sedimentation rate, C-reactive protein and Zyvox will require renewal, which I will do so and Zosyn appears to be active at this time. Chandana Acevedo MD
[2016-12-11 06:34] LABS: ADD MANUAL DIFF? NO
[2016-12-11 06:44] LABS: ALB/GLOB RATIO 0.9 (1.1-1.8); BILIRUBIN,TOTAL 0.4 mg/dL (0.2-1.3); CALCIUM 8.1 mg/dL (8.4-10.5); TOTAL PROTEIN 6.4 g/dL (5.8-8.3)
[2016-12-11 06:48] LABS: BASO # 0.03 K/mm3 (0.0-2.0); BASO % 0.5 % (0.0-3.0); EOS # 0.4 (0.0-0.7); EOS % 5.8 % (1.5-5.0); GRAN # 2.77 (1.4-6.5); GRAN % 46.1 % (50.0-68.0); HEMATOCRIT 28.9 % (36.0-48.0); LYMPH # 2.4 (1.2-3.4); LYMPH % 39.9 % (22.0-35.0); MEAN CELL VOLUME 82.3 fL (80.0-105.0); MEAN CORPUSCULAR HEMOGLOBIN 26.8 pg (25.0-35.0); MEAN CORPUSCULAR HGB CONC 32.5 g/dl (31.0-37.0); MEAN PLATELET VOLUME 9.5 fl (7.0-11.0); MONO # 0.5 (0.1-0.6); MONO % 7.7 % (1.0-6.0); PLATELET COUNT 233 10^3/uL (120.0-450.0)
[2016-12-11] MEDS: Pantoprazole 40 mg EC Tab PO SCH (07:24)
[2016-12-11] MEDS: POLYETHYLENE GLYCOL 3350 17 GM/Dose PACKET PO PRN (09:22)
[2016-12-11] MEDS: Potassium Chloride 20 mEq ER Tab PO SCH ×2 (09:24→09:44)
--- NOTE | 2016-12-11 11:16 | CP.PCM.PN ---
<Tiffany Joya - Last Filed: 12/11/16 11:13> Subjective - Date & Time of Evaluation Date of Evaluation: 12/11/16 Time of Evaluation: 09:45 - Subjective Subjective: 51 year old female pt seen at bedside today regarding followup of left heel ulceration. Pt seen sitting upright in bed at time of visit. Per nurse patient is asking for shower and then refusing shower intermittently. Dressing to right foot appears non-intact to heel. Pt again seen not wearing offloading heel boots after multiple reminders to wear them. Does complain of some tenderness to the heel today. Denies any other complaints. Objective - Vital Signs/Intake and Output Vital Signs (last 24 hours): Temp Pulse Resp BP Pulse Ox 98.6 F 78 16 154/77 H 100 12/10/16 16:00 12/11/16 09:24 12/10/16 16:00 12/11/16 09:24 12/10/16 16:00 Intake and Output: 12/11/16 12/11/16 06:59 18:59 Intake Total 1440 Output Total 900 Balance 540 - Medications Medications: Current Medications Albuterol/Ipratropium (Duoneb 3 Mg/0.5 Mg (3 Ml) Ud) 3 ml IH [id number] PRN PRN Reason: Shortness of Breath Atorvastatin Calcium (Lipitor) 20 mg PO DIN [facility] Last Admin: 12/10/16 17:32 Dose: 20 mg Clopidogrel Bisulfate (Plavix) 75 mg PO DAILY [facility] Last Admin: 12/11/16 09:30 Dose: 75 mg Diphenhydramine HCl (Benadryl) 25 mg PO Q6 PRN PRN Reason: Itching / Pruritus Last Admin: 12/09/16 14:19 Dose: 25 mg Diphenhydramine HCl (Benadryl) 25 mg PO HS PRN PRN Reason: Insomnia Last Admin: 12/11/16 01:53 Dose: 25 mg Docusate Sodium (Colace) 100 mg PO BID [facility] Last Admin: 12/11/16 09:24 Dose: 100 mg Gabapentin (Neurontin) 300 mg PO TID [facility] PRN Reason: Protocol Last Admin: 12/11/16 09:30 Dose: 300 mg Heparin Sodium (Porcine) (Heparin) 5,000 units SC Q12 [facility] PRN Reason: Protocol Last Admin: 11/28/16 21:28 Dose: Not Given Hydralazine HCl (Apresoline) 10 mg IVP Q6 PRN PRN Reason: Systolic Blood Pressure Hydromorphone HCl (Dilaudid) 0.5 mg IVP Q4H PRN PRN Reason: Pain, severe (8-10) Last Admin: 12/11/16 09:31 Dose: 0.5 mg Piperacillin Sod/Tazobactam Sod (Zosyn 3.375 In Ns 100ml) 100 mls @ 200 mls/hr IVPB Q6 [facility] PRN Reason: Protocol Stop: 12/27/16 12:01 Last Admin: 12/11/16 05:31 Dose: 200 mls/hr Sodium Chloride (Sodium Chloride 0.9%) 1,000 mls @ 100 mls/hr IV .Q10H [facility] Last Admin: 12/11/16 00:14 Dose: 100 mls/hr Insulin Detemir (Levemir) 12 unit SC HS [facility] Last Admin: 12/11/16 00:15 Dose: 12 unit Insulin Human Regular (Humulin R Low) 0 units SC ACHS [facility] PRN Reason: Protocol Last Admin: 12/11/16 09:47 Dose: 3 units Linezolid (Zyvox) 600 mg PO BID [facility] PRN Reason: Protocol Stop: 12/29/16 18:01 Last Admin: 12/11/16 09:29 Dose: 600 mg Lorazepam (Ativan) 0.5 mg PO TID PRN; Protocol PRN Reason: Anxiety Last Admin: 12/08/16 10:37 Dose: 0.5 mg Metoclopramide HCl (Reglan) 5 mg IVP Q6 PRN PRN Reason: Nausea/Vomiting Last Admin: 12/08/16 11:40 Dose: 5 mg Metoprolol Tartrate (Lopressor) 25 mg PO BID [facility] Last Admin: 12/11/16 09:24 Dose: 25 mg Morphine Sulfate (Morphine Extended Release Tab) 30 mg PO Q12 [facility] Last Admin: 12/11/16 09:28 Dose: 30 mg Olanzapine (Zyprexa Zydis) 5 mg PO HS [facility] PRN Reason: Protocol Last Admin: 12/11/16 00:08 Dose: Not Given Ondansetron HCl (Zofran Inj) 4 mg IVP Q4 PRN PRN Reason: Nausea/Vomiting Pantoprazole Sodium (Protonix Ec Tab) 40 mg PO 0600 [facility] Last Admin: 12/11/16 07:24 Dose: Not Given Polyethylene Glycol (Miralax) 17 gm PO DAILY PRN PRN Reason: Constipation Last Admin: 12/11/16 09:22 Dose: 17 gm Potassium Chloride (K-Dur 20 Meq Er Tab) 40 meq PO DAILY [facility] Last Admin: 12/11/16 09:44 Dose: Not Given Trazodone HCl (Desyrel) 50 mg PO HS [facility] Last Admin: 12/11/16 00:07 Dose: Not Given Ziprasidone (Geodon Inj) 20 mg IM Q6 PRN; Protocol PRN Reason: Agitation - Labs Labs: 12/11/16 06:15 12/11/16 06:15 PT 11.6 Seconds (9.9-11.8) 11/25/16 03:00 INR 1.07 (0.93-1.08) 11/25/16 03:00 APTT 24.2 Seconds (23.7-30.8) 11/25/16 03:00 - Constitutional Appears: Non-toxic, No Acute Distress - Extremities Exam Extremities Exam: absent: Calf Tenderness Additional comments: LLE exam: Vasc: DP & PT pulses are palpable to L foot, skin temp runs warm to cool from proximal to distal, CFT < 3 seconds to digits x 5, no pedal edema Derm: there is a full thickness ulceration noted to the left heel measuring approximately 3.8x 3.5x0.4 cm with 100% granular base, negative probe to bone, no purulence, slight sero-sanguinous drained noted to dressing, no fluctuance Ortho:mild tenderness to palpation of the left heel - Neurological Exam Neurological Exam: Alert, Awake - Psychiatric Exam Psychiatric exam: Flat Affect Assessment and Plan - Assessment and Plan (Free Text) Assessment: 51 year old female with unstageable ulceration to left heel with + OM Plan: Patient S&E at the bedside Plan discussed with attending Dr. Brady Chart, labs, vitals reviewed: afebrile, wbc 6.0 Left foot ulceration cleansed with sterile water, dressing applied with petroleum gauze and DSD. Again advised pt of importance with compliance in wearing heel boot. Pt is stable from podiatry standpoint to be D/C to [facility] for skilled nursing abx for + OM c/w IV abx as per ID Patient to follow up with her surgeon for further wound treatment Podiatry will continue to follow patient while in house <Sheridan Brady - Last Filed: 12/12/16 14:25> Objective - Vital Signs/Intake and Output Vital Signs (last 24 hours): Temp Pulse Resp BP Pulse Ox 98 F 74 18 140/77 94 L 12/11/16 16:00 12/12/16 10:46 12/11/16 16:00 12/12/16 10:46 12/11/16 16:00 Intake and Output: 12/12/16 12/12/16 06:59 18:59 Intake Total 900 Output Total 350 Balance 550 - Medications Medications: Current Medications Albuterol/Ipratropium (Duoneb 3 Mg/0.5 Mg (3 Ml) Ud) 3 ml IH [id number] PRN PRN Reason: Shortness of Breath Atorvastatin Calcium (Lipitor) 20 mg PO DIN [facility] Last Admin: 12/11/16 19:04 Dose: 20 mg Clopidogrel Bisulfate (Plavix) 75 mg PO DAILY [facility] Last Admin: 12/12/16 10:49 Dose: 75 mg Diphenhydramine HCl (Benadryl) 25 mg PO Q6 PRN PRN Reason: Itching / Pruritus Last Admin: 12/12/16 13:10 Dose: 25 mg Diphenhydramine HCl (Benadryl) 25 mg PO HS PRN PRN Reason: Insomnia Last Admin: 12/12/16 00:42 Dose: 25 mg Docusate Sodium (Colace) 100 mg PO BID [facility] Last Admin: 12/11/16 09:24 Dose: 100 mg Gabapentin (Neurontin) 300 mg PO TID [facility] PRN Reason: Protocol Last Admin: 12/12/16 10:49 Dose: 300 mg Heparin Sodium (Porcine) (Heparin) 5,000 units SC Q12 [facility] PRN Reason: Protocol Last Admin: 11/28/16 21:28 Dose: Not Given Hydralazine HCl (Apresoline) 10 mg IVP Q6 PRN PRN Reason: Systolic Blood Pressure Hydromorphone HCl (Dilaudid) 0.5 mg IVP Q4H PRN PRN Reason: Pain, severe (8-10) Last Admin: 12/12/16 10:53 Dose: 0.5 mg Piperacillin Sod/Tazobactam Sod (Zosyn 3.375 In Ns 100ml) 100 mls @ 200 mls/hr IVPB Q6 [facility] PRN Reason: Protocol Stop: 12/27/16 12:01 Last Admin: 12/12/16 13:15 Dose: 200 mls/hr Sodium Chloride (Sodium Chloride 0.9%) 1,000 mls @ 100 mls/hr IV .Q10H [facility] Last Admin: 12/12/16 10:54 Dose: Not Given Insulin Detemir (Levemir) 12 unit SC HS [facility] Last Admin: 12/11/16 22:26 Dose: 12 unit Insulin Human Regular (Humulin R Low) 0 units SC ACHS [facility] PRN Reason: Protocol Last Admin: 12/12/16 12:00 Dose: Not Given Linezolid (Zyvox) 600 mg PO BID [facility] PRN Reason: Protocol Stop: 12/29/16 18:01 Last Admin: 12/12/16 10:49 Dose: 600 mg Lorazepam (Ativan) 0.5 mg PO TID PRN; Protocol PRN Reason: Anxiety Last Admin: 12/08/16 10:37 Dose: 0.5 mg Metoclopramide HCl (Reglan) 5 mg IVP Q6 PRN PRN Reason: Nausea/Vomiting Last Admin: 12/08/16 11:40 Dose: 5 mg Metoprolol Tartrate (Lopressor) 25 mg PO BID [facility] Last Admin: 12/12/16 10:46 Dose: 25 mg Morphine Sulfate (Morphine Extended Release Tab) 30 mg PO Q12 [facility] Last Admin: 12/12/16 10:45 Dose: 30 mg Olanzapine (Zyprexa Zydis) 5 mg PO HS [facility] PRN Reason: Protocol Last Admin: 12/11/16 22:25 Dose: Not Given Ondansetron HCl (Zofran Inj) 4 mg IVP Q4 PRN PRN Reason: Nausea/Vomiting Pantoprazole Sodium (Protonix Ec Tab) 40 mg PO 0600 [facility] Last Admin: 12/12/16 05:29 Dose: 40 mg Polyethylene Glycol (Miralax) 17 gm PO DAILY PRN PRN Reason: Constipation Last Admin: 12/11/16 09:22 Dose: 17 gm Potassium Chloride (K-Dur 20 Meq Er Tab) 40 meq PO DAILY [facility] Last Admin: 12/12/16 10:50 Dose: Not Given Trazodone HCl (Desyrel) 50 mg PO HS [facility] Last Admin: 12/11/16 22:26 Dose: Not Given Ziprasidone (Geodon Inj) 20 mg IM Q6 PRN; Protocol PRN Reason: Agitation - Labs Labs: 12/12/16 06:45 12/12/16 06:45 PT 11.6 Seconds (9.9-11.8) 11/25/16 03:00 INR 1.07 (0.93-1.08) 11/25/16 03:00 APTT 24.2 Seconds (23.7-30.8) 11/25/16 03:00 Attending/Attestation - Attestation I have personally seen and examined this patient.: Yes I have fully participated in the care of the patient.: Yes I have reviewed all pertinent clinical information, including history, physical exam and plan: Yes
--- NOTE | 2016-12-11 16:11 | CP.PCM.CON ---
History of Present Illness - History of Present Illness History of Present Illness: follow-up note: Shortly patient is 51 years old female, reported history of bipolar disorder, (most likely pt has schizoaffective disorder) but patient denied h/o mental illness, patient was admitted on the medical side for evaluation of chest pain, initially psych consult was called for evaluation of possible depressive symptoms, patient is verbal abuse towards staff, possible medication management, please see initial note for more detailed information. medical team called psychiatric f/u for this pt because pt was not making rational decisions , was refusing antibiotics, emotionally labile, pt was seen by this database report writer on daily basis since 12/03/16. pt was followed up today hygiene is better, pt is much calmer, pt was more rational, more pleasant, was asking reasonable questions about her medical issues, as per RNs pt is meds compliance, appetite is much better, pt was asking to take a shower. today pt asked about xanax, pt has tendency asking for pain meds an benzos. pt was educated about trazodone. MSE: pt alert, knows the name of the hospital, month, pt was able to recognize this database report writer, "travis Green". hygiene is better, intense eye contact, speech was underproductive "yes-no", mood "I am doing fine....", affect was less irritable, pt seems to be annoyed, thought process is goal directed, thought content: denied v/a/t hallucinations, pt guarded but not paranoid. pt has basic understanding of her medical dx,judgment is fair, impulses are well controlled Impression: delirium is better r/o r/o paranoid personality r/o borderline personality passive aggressive Plan: pt is improving pt has rights to refuse psychotropic medications SW is trying to find [facility] med compliance is good no behavioral incidents improved insight this database report writer will sign off ID as per medical team Podiatry PT Past Patient History - Tetanus Immunizations Tetanus Immunization: Unknown - Past Medical History & Family History Past Medical History?: Yes - Past Social History Smoking Status: Never Smoked Alcohol: None Drugs: Denies Home Situation {Lives}: With Family - CARDIAC Hx Heart Attack: Yes Hx Hypertension: Yes - PULMONARY Hx Asthma: Yes Hx Lung Cancer: Yes - HEENT Hx HEENT Problems: Yes Other/Comment: diff vision - RENAL Hx Chronic Kidney Disease: Yes Hx Renal Failure: Yes Other/Comment: cancer - ENDOCRINE/METABOLIC Hx Diabetes Mellitus Type 2: Yes - HEMATOLOGICAL/ONCOLOGICAL Hx Anemia: Yes Hx Cancer: Yes Hx Chemotherapy: Yes - INTEGUMENTARY Other/Comment: osteomylitis r foot - MUSCULOSKELETAL/RHEUMATOLOGICAL Hx Osteomyelitis: Yes (r foot) Other/Comment: dvt rue - GASTROINTESTINAL Hx Gastrointestinal Disorders: No - GENITOURINARY/GYNECOLOGICAL Hx Genitourinary Disorders: No - PSYCHIATRIC Hx Bipolar Disorder: Yes Hx Depression: Yes Hx Substance Use: No Other/Comment: drug seeking - SURGICAL HISTORY Other/Comment: r nephrectomy/r foot. / picc left upper arm Meds Allergies/Adverse Reactions: Allergies Allergy/AdvReac Type Severity Reaction Status Date / Time EGG Allergy ITCHING Verified 12/09/16 17:07 ketorolac [From Toradol] Allergy RASH Verified 11/25/16 02:56 - Medications Medications: Current Medications Albuterol/Ipratropium (Duoneb 3 Mg/0.5 Mg (3 Ml) Ud) 3 ml IH [id number] PRN PRN Reason: Shortness of Breath Atorvastatin Calcium (Lipitor) 20 mg PO DIN [facility] Last Admin: 12/10/16 17:32 Dose: 20 mg Clopidogrel Bisulfate (Plavix) 75 mg PO DAILY [facility] Last Admin: 12/11/16 09:30 Dose: 75 mg Diphenhydramine HCl (Benadryl) 25 mg PO Q6 PRN PRN Reason: Itching / Pruritus Last Admin: 12/11/16 15:01 Dose: 25 mg Diphenhydramine HCl (Benadryl) 25 mg PO HS PRN PRN Reason: Insomnia Last Admin: 12/11/16 01:53 Dose: 25 mg Docusate Sodium (Colace) 100 mg PO BID [facility] Last Admin: 12/11/16 09:24 Dose: 100 mg Gabapentin (Neurontin) 300 mg PO TID [facility] PRN Reason: Protocol Last Admin: 12/11/16 09:30 Dose: 300 mg Heparin Sodium (Porcine) (Heparin) 5,000 units SC Q12 [facility] PRN Reason: Protocol Last Admin: 11/28/16 21:28 Dose: Not Given Hydralazine HCl (Apresoline) 10 mg IVP Q6 PRN PRN Reason: Systolic Blood Pressure Hydromorphone HCl (Dilaudid) 0.5 mg IVP Q4H PRN PRN Reason: Pain, severe (8-10) Last Admin: 12/11/16 13:30 Dose: 0.5 mg Piperacillin Sod/Tazobactam Sod (Zosyn 3.375 In Ns 100ml) 100 mls @ 200 mls/hr IVPB Q6 [facility] PRN Reason: Protocol Stop: 12/27/16 12:01 Last Admin: 12/11/16 12:13 Dose: 200 mls/hr Sodium Chloride (Sodium Chloride 0.9%) 1,000 mls @ 100 mls/hr IV .Q10H [facility] Last Admin: 12/11/16 12:14 Dose: Not Given Insulin Detemir (Levemir) 12 unit SC HS [facility] Last Admin: 12/11/16 00:15 Dose: 12 unit Insulin Human Regular (Humulin R Low) 0 units SC ACHS [facility] PRN Reason: Protocol Last Admin: 12/11/16 12:12 Dose: 2 units Linezolid (Zyvox) 600 mg PO BID [facility] PRN Reason: Protocol Stop: 12/29/16 18:01 Last Admin: 12/11/16 09:29 Dose: 600 mg Lorazepam (Ativan) 0.5 mg PO TID PRN; Protocol PRN Reason: Anxiety Last Admin: 12/08/16 10:37 Dose: 0.5 mg Metoclopramide HCl (Reglan) 5 mg IVP Q6 PRN PRN Reason: Nausea/Vomiting Last Admin: 12/08/16 11:40 Dose: 5 mg Metoprolol Tartrate (Lopressor) 25 mg PO BID [facility] Last Admin: 12/11/16 09:24 Dose: 25 mg Morphine Sulfate (Morphine Extended Release Tab) 30 mg PO Q12 [facility] Last Admin: 12/11/16 09:28 Dose: 30 mg Olanzapine (Zyprexa Zydis) 5 mg PO HS [facility] PRN Reason: Protocol Last Admin: 12/11/16 00:08 Dose: Not Given Ondansetron HCl (Zofran Inj) 4 mg IVP Q4 PRN PRN Reason: Nausea/Vomiting Pantoprazole Sodium (Protonix Ec Tab) 40 mg PO 0600 [facility] Last Admin: 12/11/16 07:24 Dose: Not Given Polyethylene Glycol (Miralax) 17 gm PO DAILY PRN PRN Reason: Constipation Last Admin: 12/11/16 09:22 Dose: 17 gm Potassium Chloride (K-Dur 20 Meq Er Tab) 40 meq PO DAILY [facility] Last Admin: 12/11/16 09:44 Dose: Not Given Trazodone HCl (Desyrel) 50 mg PO HS [facility] Last Admin: 12/11/16 00:07 Dose: Not Given Ziprasidone (Geodon Inj) 20 mg IM Q6 PRN; Protocol PRN Reason: Agitation Results - Vital Signs Recent Vital Signs: Last Vital Signs Temp 98.6 F 12/10/16 16:00 Pulse 78 12/11/16 09:24 Resp 16 12/10/16 16:00 BP 154/77 H 12/11/16 09:24 Pulse Ox 100 12/10/16 16:00 - Labs Result Diagrams: 12/11/16 06:15 12/11/16 06:15 Labs: Laboratory Results - last 24 hr 12/10/16 12/10/16 12/11/16 15:52 21:56 06:15 WBC 6.0 RBC 3.51 Hgb 9.4 L Hct 28.9 L MCV 82.3 MCH 26.8 MCHC 32.5 RDW 16.0 H Plt Count 233 MPV 9.5 Gran % 46.1 L Lymph % (Auto) 39.9 H Petroleum % (Auto) 7.7 H Eos % (Auto) 5.8 H Baso % (Auto) 0.5 Gran # 2.77 Lymph # 2.4 Petroleum # 0.5 Eos # 0.4 Baso # 0.03 Sodium Potassium Chloride Carbon Dioxide Anion Gap BUN Creatinine Est GFR ( Amer) Est GFR (Non-Af Amer) POC Glucose (mg/dL) 244 H 388 H Random Glucose Calcium Total Bilirubin AST ALT Alkaline Phosphatase Total Protein Albumin Globulin Albumin/Globulin Ratio 12/11/16 12/11/16 06:15 07:28 WBC RBC Hgb Hct MCV MCH MCHC RDW Plt Count MPV Gran % Lymph % (Auto) Petroleum % (Auto) Eos % (Auto) Baso % (Auto) Gran # Lymph # Petroleum # Eos # Baso # Sodium 141 Potassium 5.0 Chloride 107 Carbon Dioxide 25 Anion Gap 14 BUN 22 H Creatinine 1.7 H Est GFR ( Amer) 38 Est GFR (Non-Af Amer) 31 POC Glucose (mg/dL) 257 H Random Glucose 258 H Calcium 8.1 L Total Bilirubin 0.4 AST 39 ALT 48 Alkaline Phosphatase 358 H Total Protein 6.4 Albumin 3.0 Globulin 3.3 Albumin/Globulin Ratio 0.9 L
--- NOTE | 2016-12-11 20:26 | CP.PCM.PN ---
<TRES ARTHUR - Last Filed: 12/11/16 20:20> Subjective - Date & Time of Evaluation Date of Evaluation: 12/11/16 Time of Evaluation: 10:00 - Subjective Subjective: Medicine Progress Note: Pt seen and assessed at bedside. Pt had no new complaints at this time. Pt noticeably more pleasant and engaging during exam than previously. Pt denied headache, fever, shortness of breath, chest pain, N/V, abdominal pain, diarrhea or constipation. Objective - Vital Signs/Intake and Output Vital Signs (last 24 hours): Temp Pulse Resp BP Pulse Ox 98 F 72 18 147/88 94 L 12/11/16 16:00 12/11/16 19:01 12/11/16 16:00 12/11/16 19:01 12/11/16 16:00 Intake and Output: 12/11/16 12/12/16 18:59 06:59 Intake Total 600 Balance 600 - Medications Medications: Current Medications Albuterol/Ipratropium (Duoneb 3 Mg/0.5 Mg (3 Ml) Ud) 3 ml IH [id number] PRN PRN Reason: Shortness of Breath Atorvastatin Calcium (Lipitor) 20 mg PO DIN [facility] Last Admin: 12/11/16 19:04 Dose: 20 mg Clopidogrel Bisulfate (Plavix) 75 mg PO DAILY [facility] Last Admin: 12/11/16 09:30 Dose: 75 mg Diphenhydramine HCl (Benadryl) 25 mg PO Q6 PRN PRN Reason: Itching / Pruritus Last Admin: 12/11/16 15:01 Dose: 25 mg Diphenhydramine HCl (Benadryl) 25 mg PO HS PRN PRN Reason: Insomnia Last Admin: 12/11/16 01:53 Dose: 25 mg Docusate Sodium (Colace) 100 mg PO BID [facility] Last Admin: 12/11/16 09:24 Dose: 100 mg Gabapentin (Neurontin) 300 mg PO TID [facility] PRN Reason: Protocol Last Admin: 12/11/16 19:03 Dose: 300 mg Heparin Sodium (Porcine) (Heparin) 5,000 units SC Q12 [facility] PRN Reason: Protocol Last Admin: 11/28/16 21:28 Dose: Not Given Hydralazine HCl (Apresoline) 10 mg IVP Q6 PRN PRN Reason: Systolic Blood Pressure Hydromorphone HCl (Dilaudid) 0.5 mg IVP Q4H PRN PRN Reason: Pain, severe (8-10) Last Admin: 12/11/16 13:30 Dose: 0.5 mg Piperacillin Sod/Tazobactam Sod (Zosyn 3.375 In Ns 100ml) 100 mls @ 200 mls/hr IVPB Q6 [facility] PRN Reason: Protocol Stop: 12/27/16 12:01 Last Admin: 12/11/16 19:04 Dose: 200 mls/hr Sodium Chloride (Sodium Chloride 0.9%) 1,000 mls @ 100 mls/hr IV .Q10H [facility] Last Admin: 12/11/16 12:14 Dose: Not Given Insulin Detemir (Levemir) 12 unit SC HS [facility] Last Admin: 12/11/16 00:15 Dose: 12 unit Insulin Human Regular (Humulin R Low) 0 units SC ACHS [facility] PRN Reason: Protocol Last Admin: 12/11/16 19:08 Dose: Not Given Linezolid (Zyvox) 600 mg PO BID [facility] PRN Reason: Protocol Stop: 12/29/16 18:01 Last Admin: 12/11/16 19:04 Dose: 600 mg Lorazepam (Ativan) 0.5 mg PO TID PRN; Protocol PRN Reason: Anxiety Last Admin: 12/08/16 10:37 Dose: 0.5 mg Metoclopramide HCl (Reglan) 5 mg IVP Q6 PRN PRN Reason: Nausea/Vomiting Last Admin: 12/08/16 11:40 Dose: 5 mg Metoprolol Tartrate (Lopressor) 25 mg PO BID [facility] Last Admin: 12/11/16 19:01 Dose: 25 mg Morphine Sulfate (Morphine Extended Release Tab) 30 mg PO Q12 [facility] Last Admin: 12/11/16 09:28 Dose: 30 mg Olanzapine (Zyprexa Zydis) 5 mg PO HS [facility] PRN Reason: Protocol Last Admin: 12/11/16 00:08 Dose: Not Given Ondansetron HCl (Zofran Inj) 4 mg IVP Q4 PRN PRN Reason: Nausea/Vomiting Pantoprazole Sodium (Protonix Ec Tab) 40 mg PO 0600 [facility] Last Admin: 12/11/16 07:24 Dose: Not Given Polyethylene Glycol (Miralax) 17 gm PO DAILY PRN PRN Reason: Constipation Last Admin: 12/11/16 09:22 Dose: 17 gm Potassium Chloride (K-Dur 20 Meq Er Tab) 40 meq PO DAILY [facility] Last Admin: 12/11/16 09:44 Dose: Not Given Trazodone HCl (Desyrel) 50 mg PO HS [facility] Last Admin: 12/11/16 00:07 Dose: Not Given Ziprasidone (Geodon Inj) 20 mg IM Q6 PRN; Protocol PRN Reason: Agitation - Labs Labs: 12/11/16 06:15 12/11/16 06:15 PT 11.6 Seconds (9.9-11.8) 11/25/16 03:00 INR 1.07 (0.93-1.08) 11/25/16 03:00 APTT 24.2 Seconds (23.7-30.8) 11/25/16 03:00 - Constitutional Appears: No Acute Distress - Head Exam Head Exam: NORMAL INSPECTION - Eye Exam Eye Exam: EOMI, Normal appearance - ENT Exam ENT Exam: Mucous Membranes Moist, Normal Exam - Neck Exam Neck Exam: Full ROM - Respiratory Exam Respiratory Exam: Clear to Ausculation Bilateral, NORMAL BREATHING PATTERN. absent: Rales, Rhonchi, Wheezes, Respiratory Distress - Cardiovascular Exam Cardiovascular Exam: REGULAR RHYTHM, +S1, +S2. absent: Murmur - GI/Abdominal Exam GI & Abdominal Exam: Normal Bowel Sounds. absent: Distended, Firm, Guarding, Tenderness - Extremities Exam Extremities Exam: absent: Calf Tenderness, Pedal Edema Additional comments: L heel dressing clean dry and intact - Neurological Exam Neurological Exam: Alert, Awake, Oriented x3 - Psychiatric Exam Psychiatric exam: Normal Affect, Normal Mood - Skin Skin Exam: Dry, Intact, Normal Color, Warm Assessment and Plan - Assessment and Plan (Free Text) Assessment: Ms. Kerr is a 51 yo female with a past medical history of NM, hyperlipidemia, diabetes, HTN, CKD, asthma, DVT, uterine cancer, lung cancer and thromboembolic disease S/P left heel osteomyelitis debridement who was admitted for evaluation and treatment of chest pain and left heel pain. Plan: 1. S/P Left heel ulcer debridement/osteomyelitis - Zosyn and Zyvox ID, patient compliant with both on 12/11 -pain control with PO morphine and IV dilaudid -wound cultures showed MRSA and amikacin sensitive proteus mirabilis -"4-6 weeks of Zosyn and 3-4 weeks of Zyvox with weekly ESR, CRP, CBC, CMP. Would consider PO antibiotics if these trend downward", per ID -PT will attempt to reassess 12/12 -podiatry and wound care on board, all recommendations appreciated -SW/case management working on acute care placement; discharge from hospital delayed due to placement issues 2. Chronic Pancreatitis -pt given 8 units of humulin and 12 units levemir on 12/11; most recent blood sugar 258 -pain control with morphine and dilaudid -heart healthy diet with low fat -will continue to monitor 3. Delirium -psychiatry following, all recommendations appreciated -psychiatry notes improvement -PRN Geodon, PRN Risperidone and PRN Ativan -zyprexa zydis 5mg HS, per psych; refused on 12/11 4. Constipation - cont scheduled colace and PRN miralax 5. Thyroid Nodule -TSH wnl -asymptomatic at this time -will continue to monitor 6. Vision Changes -optho consulted and agreed to see as outpatient -will assist pt in scheduling upon d/c -will cont to monitor 7. Anemia -Iron studies within normal limits -B12 and Folate WNL -continuing to monitor with daily CBC's 8. Asthma -Duoneb q4 PRN 9. Medication Noncompliance - patient noted to be more compliant with her medications as of this week - 12/11 patient refused IVF, protonix, zyprexa and trazadone. - of note, patient has not refused IV dilaudid - will continue to educate patient on the importance of medication compliance with all prescribed medications 10. Patient Reports History of Heart and Uterine Cancer - no mention of heart cancer or labs/imaging documenting other malignancies/ treatment of said malignancies in review of [facility] records - no written record or means of attaining written record were provided by patient despite multiple inquiries - noncontrast CT of chest/abdomen/ pelvis showed no acute disease processes in heart or lungs 11. GI/DVT prophylaxis -protonix/ SCD Patient seen and case discussed with attending physician, Dr. Sands. <Mao Sands - Last Filed: 01/22/17 16:54> Objective - Vital Signs/Intake and Output Vital Signs (last 24 hours): Temp Pulse Resp BP Pulse Ox 98.1 F 80 20 140/80 96 12/24/16 08:00 12/24/16 08:00 12/24/16 08:00 12/24/16 08:00 12/24/16 08:00 - Labs Labs: 12/24/16 08:00 12/22/16 06:30 PT 11.6 Seconds (9.9-11.8) 11/25/16 03:00 INR 1.07 (0.93-1.08) 11/25/16 03:00 APTT 24.2 Seconds (23.7-30.8) 11/25/16 03:00 Attending/Attestation - Attestation I have personally seen and examined this patient.: Yes I have fully participated in the care of the patient.: Yes I have reviewed all pertinent clinical information, including history, physical exam and plan: Yes Notes (Text): 51 yo female with a past medical history of NM, hyperlipidemia, diabetes, HTN, CKD, asthma, DVT, uterine cancer, lung cancer and thromboembolic disease S/P left heel osteomyelitis debridement who was admitted for evaluation and treatment of chest pain and left heel pain. Plan: 1. S/P Left heel ulcer debridement/osteomyelitis - Zosyn and Zyvox ID, patient compliant with both on 12/10 -SW/case management working on acute care placement; discharge from hospital delayed due to patient refusal to all accepting rehab facilities thus far 2. Chronic Pancreatitis -pt given 8 units of humulin on 12/10 and refused levemir; most recent blood sugar 341 -pain control with morphine and dilaudid; Dilaudid increased from Q6 to Q4 at the same dose for better pain control -heart healthy diet with low fat -will continue to monitor 3. Agitation -PRN Geodon, PRN Risperidone and PRN Ativan -zyprexa zydis 5mg HS, per psych; refused on 12/10 -psychiatry following, all recs appreciated 4. Constipation - cont scheduled colace and PRN miralax 5. Thyroid Nodule -TSH wnl -asymptomatic at this time -will continue to monitor as outpatient 6. Vision Changes -optho consulted and agreed to see as outpatient -will assist pt in scheduling upon d/c -will cont to monitor 7. Medication Noncompliance - 12/10 patient refused levemir, zyprexa and trazadone. - of note, patient has not refused IV dilaudid - will continue to educate patient on the importance of medication compliance with all prescribed medications 8. Patient Reports History of Heart and Uterine Cancer - no mention of heart cancer or labs/imaging documenting other malignancies/ treatment of said malignancies in review of [facility] records - no written record or means of attaining written record were provided by patient despite multiple inquiries - noncontrast CT of chest/abdomen/ pelvis showed no acute disease processes in heart or lungs
--- NOTE | 2016-12-11 22:12 | PN ---
SUBJECTIVE: The patient is in bed, in no acute distress. Nontoxic. PHYSICAL EXAMINATION: VITAL SIGNS: Temperature is 98, blood pressure is 140/80, respiratory rate of 16. HEENT: Unremarkable. NECK: Supple. LUNGS: Decreased breath sounds. HEART: Normal S1 and S2. ABDOMEN: Soft. LABORATORY DATA: Noted. White count is reported to be 6 and the platelets are 233,000. Chemistry reveals a creatinine is 1.7 with microbiology noted to have Proteus and MRSA. ASSESSMENT AND PLAN: This is a 51-year-old female with a left foot osteomyelitis, methicillin-resistant Staphylococcus aureus, and resistant Proteus, on Zyvox dose, would complete 4 to 6 weeks with a weekly CBC, SMA-18, sedimentation rate and C-reactive protein. Hesitant to use vancomycin in this patient with a creatinine of 1.7. Chandana Acevedo MD
[2016-12-12] MEDS: HYDROmorphone 0.5 mg/0.5 ml ISec IVP PRN ×5 (00:42→20:10)
[2016-12-12] MEDS: Piperacillin/Tazobact 3.375 gm 100 ML IVPB SCH ×4 (00:43→18:15)
[2016-12-12] MEDS: Pantoprazole 40 mg EC Tab PO SCH (05:29)
[2016-12-12 06:51] LABS: ADD MANUAL DIFF? NO
[2016-12-12 07:24] LABS: BASO # 0.01 K/mm3 (0.0-2.0); BASO % 0.2 % (0.0-3.0); EOS # 0.3 (0.0-0.7); EOS % 5.6 % (1.5-5.0); GRAN # 2.88 (1.4-6.5); GRAN % 48.7 % (50.0-68.0); HEMATOCRIT 27.5 % (36.0-48.0); LYMPH # 2.3 (1.2-3.4); LYMPH % 39.1 % (22.0-35.0); MEAN CELL VOLUME 80.4 fL (80.0-105.0); MEAN CORPUSCULAR HEMOGLOBIN 25.7 pg (25.0-35.0); MEAN PLATELET VOLUME 9.3 fl (7.0-11.0); MONO # 0.4 (0.1-0.6); MONO % 6.4 % (1.0-6.0); PLATELET COUNT 210 10^3/uL (120.0-450.0); WHITE BLOOD COUNT 5.9 10^3/ul (4.5-11.0)
[2016-12-12 07:29] LABS: BILIRUBIN,TOTAL 0.3 mg/dL (0.2-1.3); CALCIUM 8.1 mg/dL (8.4-10.5); TOTAL PROTEIN 5.9 g/dL (5.8-8.3)
[2016-12-12] MEDS: Insulin Reg-LOW-Coverage SC SCH ×4 (07:30→21:36)
--- NOTE | 2016-12-12 09:18 | CP.PCM.PN ---
<TRES ARTHUR - Last Filed: 12/12/16 22:24> Subjective - Date & Time of Evaluation Date of Evaluation: 12/12/16 Time of Evaluation: 07:30 - Subjective Subjective: Medicine Progress Note: Pt seen and assessed at bedside. Pt had no complaints. Pt stated that her pain was "better". Pt denied headache, fever, dizziness, shortness of breath, chest pain, N/V, or abdominal pain. Objective - Vital Signs/Intake and Output Vital Signs (last 24 hours): Temp Pulse Resp BP Pulse Ox 98 F 72 18 147/88 94 L 12/11/16 16:00 12/11/16 19:01 12/11/16 16:00 12/11/16 19:01 12/11/16 16:00 Intake and Output: 12/12/16 12/12/16 06:59 18:59 Intake Total 900 Output Total 350 Balance 550 - Medications Medications: Current Medications Albuterol/Ipratropium (Duoneb 3 Mg/0.5 Mg (3 Ml) Ud) 3 ml IH [id number] PRN PRN Reason: Shortness of Breath Atorvastatin Calcium (Lipitor) 20 mg PO DIN [facility] Last Admin: 12/11/16 19:04 Dose: 20 mg Clopidogrel Bisulfate (Plavix) 75 mg PO DAILY [facility] Last Admin: 12/11/16 09:30 Dose: 75 mg Diphenhydramine HCl (Benadryl) 25 mg PO Q6 PRN PRN Reason: Itching / Pruritus Last Admin: 12/11/16 15:01 Dose: 25 mg Diphenhydramine HCl (Benadryl) 25 mg PO HS PRN PRN Reason: Insomnia Last Admin: 12/12/16 00:42 Dose: 25 mg Docusate Sodium (Colace) 100 mg PO BID [facility] Last Admin: 12/11/16 09:24 Dose: 100 mg Gabapentin (Neurontin) 300 mg PO TID [facility] PRN Reason: Protocol Last Admin: 12/11/16 19:03 Dose: 300 mg Heparin Sodium (Porcine) (Heparin) 5,000 units SC Q12 [facility] PRN Reason: Protocol Last Admin: 11/28/16 21:28 Dose: Not Given Hydralazine HCl (Apresoline) 10 mg IVP Q6 PRN PRN Reason: Systolic Blood Pressure Hydromorphone HCl (Dilaudid) 0.5 mg IVP Q4H PRN PRN Reason: Pain, severe (8-10) Last Admin: 12/12/16 05:27 Dose: 0.5 mg Piperacillin Sod/Tazobactam Sod (Zosyn 3.375 In Ns 100ml) 100 mls @ 200 mls/hr IVPB Q6 [facility] PRN Reason: Protocol Stop: 12/27/16 12:01 Last Admin: 12/12/16 05:28 Dose: 200 mls/hr Sodium Chloride (Sodium Chloride 0.9%) 1,000 mls @ 100 mls/hr IV .Q10H [facility] Last Admin: 12/11/16 12:14 Dose: Not Given Insulin Detemir (Levemir) 12 unit SC HS [facility] Last Admin: 12/11/16 22:26 Dose: 12 unit Insulin Human Regular (Humulin R Low) 0 units SC ACHS [facility] PRN Reason: Protocol Last Admin: 12/11/16 22:21 Dose: Not Given Linezolid (Zyvox) 600 mg PO BID [facility] PRN Reason: Protocol Stop: 12/29/16 18:01 Last Admin: 12/11/16 19:04 Dose: 600 mg Lorazepam (Ativan) 0.5 mg PO TID PRN; Protocol PRN Reason: Anxiety Last Admin: 12/08/16 10:37 Dose: 0.5 mg Metoclopramide HCl (Reglan) 5 mg IVP Q6 PRN PRN Reason: Nausea/Vomiting Last Admin: 12/08/16 11:40 Dose: 5 mg Metoprolol Tartrate (Lopressor) 25 mg PO BID [facility] Last Admin: 12/11/16 19:01 Dose: 25 mg Morphine Sulfate (Morphine Extended Release Tab) 30 mg PO Q12 [facility] Last Admin: 12/11/16 22:26 Dose: 30 mg Olanzapine (Zyprexa Zydis) 5 mg PO HS [facility] PRN Reason: Protocol Last Admin: 12/11/16 22:25 Dose: Not Given Ondansetron HCl (Zofran Inj) 4 mg IVP Q4 PRN PRN Reason: Nausea/Vomiting Pantoprazole Sodium (Protonix Ec Tab) 40 mg PO 0600 [facility] Last Admin: 12/12/16 05:29 Dose: 40 mg Polyethylene Glycol (Miralax) 17 gm PO DAILY PRN PRN Reason: Constipation Last Admin: 12/11/16 09:22 Dose: 17 gm Potassium Chloride (K-Dur 20 Meq Er Tab) 40 meq PO DAILY [facility] Last Admin: 12/11/16 09:44 Dose: Not Given Trazodone HCl (Desyrel) 50 mg PO HS [facility] Last Admin: 12/11/16 22:26 Dose: Not Given Ziprasidone (Geodon Inj) 20 mg IM Q6 PRN; Protocol PRN Reason: Agitation - Labs Labs: 12/12/16 06:45 12/12/16 06:45 PT 11.6 Seconds (9.9-11.8) 11/25/16 03:00 INR 1.07 (0.93-1.08) 11/25/16 03:00 APTT 24.2 Seconds (23.7-30.8) 11/25/16 03:00 - Constitutional Appears: No Acute Distress - Head Exam Head Exam: NORMAL INSPECTION - Eye Exam Eye Exam: EOMI, Normal appearance - ENT Exam ENT Exam: Mucous Membranes Moist, Normal Exam - Neck Exam Neck Exam: Full ROM - Respiratory Exam Respiratory Exam: Clear to Ausculation Bilateral, NORMAL BREATHING PATTERN. absent: Rales, Rhonchi, Wheezes, Respiratory Distress - Cardiovascular Exam Cardiovascular Exam: REGULAR RHYTHM, RRR, +S1, +S2. absent: Murmur - GI/Abdominal Exam GI & Abdominal Exam: Normal Bowel Sounds. absent: Distended, Firm, Guarding, Tenderness - Extremities Exam Extremities Exam: absent: Calf Tenderness, Joint Swelling, Pedal Edema Additional comments: L heel wound dressing clean, dry and intact L PICC line insertion site with no erythema, fluctuance or drainage. - Neurological Exam Neurological Exam: Alert, Awake, Oriented x3 - Psychiatric Exam Psychiatric exam: Normal Affect, Normal Mood - Skin Skin Exam: Dry, Intact, Normal Color, Warm Assessment and Plan - Assessment and Plan (Free Text) Assessment: Ms. Kerr is a 51 yo female with a past medical history of ID, hyperlipidemia, diabetes, HTN, CKD, asthma, DVT, uterine cancer, lung cancer and thromboembolic disease S/P left heel osteomyelitis debridement who was admitted for evaluation and treatment of chest pain and left heel pain. Plan: 1. Osteomyelitis of L heel - cont with Zosyn and Zyvox, per ID -pain control with PO morphine and IV dilaudid -wound cultures showed MRSA and amikacin sensitive proteus mirabilis -"4-6 weeks of Zosyn and 3-4 weeks of Zyvox with weekly ESR, CRP, CBC, CMP. Would consider PO antibiotics if these trend downward", per ID -podiatry and wound care on board, all recommendations appreciated -PT/OT with new evaluation on 12/12 -SW/case management working on acute care placement; discharge from hospital delayed due to placement issues 2. Chronic Pancreatitis -cont with humilin and levemir; most recent blood sugar was 289 -pain control with morphine and dilaudid -heart healthy diet with low fat -will continue to monitor 3. Delirium -psychiatry following, all recommendations appreciated -psychiatry notes improvement; medicine team also notes improved communication during assessments -PRN Geodon, PRN Risperidone and PRN Ativan -zyprexa zydis 5mg HS, per psych 4. Constipation - PRN miralax 5. Thyroid Nodule -TSH wnl -asymptomatic at this time -will continue to monitor 6. Vision Changes -optho consulted and agreed to see as outpatient -will assist pt in scheduling upon d/c -will cont to monitor 7. Anemia -Iron studies within normal limits -B12 and Folate WNL -continuing to monitor with daily CBC's 8. Asthma -Duoneb q4 PRN 9. History of Medication Noncompliance - patient noticeably more compliant with medication therapy; patient refused IVF on 12/12 and was compliant with all other medications - will continue to educate patient on the importance of medication compliance with all prescribed medications when appropriate 10. History of Heart and Uterine Cancer - no mention of heart cancer or labs/imaging documenting other malignancies/ treatment of said malignancies in review of [facility] records - no written record or means of attaining written record were provided by patient despite multiple inquiries - noncontrast CT of chest/abdomen/ pelvis showed no acute disease processes in heart or lungs - will continue to monitor clinically and consult hem/onc when clinically appropriate 11. GI/DVT prophylaxis -protonix/ SCD Patient seen and case discussed with attending physician, Dr. Sands. <Mao Sands - Last Filed: 01/22/17 16:54> Objective - Vital Signs/Intake and Output Vital Signs (last 24 hours): Temp Pulse Resp BP Pulse Ox 98.1 F 80 20 140/80 96 12/24/16 08:00 12/24/16 08:00 12/24/16 08:00 12/24/16 08:00 12/24/16 08:00 - Labs Labs: 12/24/16 08:00 12/22/16 06:30 PT 11.6 Seconds (9.9-11.8) 11/25/16 03:00 INR 1.07 (0.93-1.08) 11/25/16 03:00 APTT 24.2 Seconds (23.7-30.8) 11/25/16 03:00 Attending/Attestation - Attestation I have personally seen and examined this patient.: Yes I have fully participated in the care of the patient.: Yes I have reviewed all pertinent clinical information, including history, physical exam and plan: Yes Notes (Text): 51 yo female with a past medical history of ID, hyperlipidemia, diabetes, HTN, CKD, asthma, DVT, uterine cancer, lung cancer and thromboembolic disease S/P left heel osteomyelitis debridement who was admitted for evaluation and treatment of chest pain and left heel pain. Plan: 1. S/P Left heel ulcer debridement/osteomyelitis - Zosyn and Zyvox ID, patient compliant with both on 12/10 -SW/case management working on acute care placement; discharge from hospital delayed due to patient refusal to all accepting rehab facilities thus far 2. Chronic Pancreatitis -pt given 8 units of humulin on 12/10 and refused levemir; most recent blood sugar 341 -pain control with morphine and dilaudid; Dilaudid increased from Q6 to Q4 at the same dose for better pain control -heart healthy diet with low fat -will continue to monitor 3. Agitation -PRN Geodon, PRN Risperidone and PRN Ativan -zyprexa zydis 5mg HS, per psych; refused on 12/10 -psychiatry following, all recs appreciated 4. Constipation - cont scheduled colace and PRN miralax 5. Thyroid Nodule -TSH wnl -asymptomatic at this time -will continue to monitor as outpatient 6. Vision Changes -optho consulted and agreed to see as outpatient -will assist pt in scheduling upon d/c -will cont to monitor 7. Medication Noncompliance - 12/10 patient refused levemir, zyprexa and trazadone. - of note, patient has not refused IV dilaudid - will continue to educate patient on the importance of medication compliance with all prescribed medications 8. Patient Reports History of Heart and Uterine Cancer - no mention of heart cancer or labs/imaging documenting other malignancies/ treatment of said malignancies in review of [facility] records - no written record or means of attaining written record were provided by patient despite multiple inquiries - noncontrast CT of chest/abdomen/ pelvis showed no acute disease processes in heart or lungs
[2016-12-12] MEDS: Morphine 30 mg SR Tab PO SCH (10:45)
[2016-12-12] MEDS: Potassium Chloride 20 mEq ER Tab PO SCH (10:50)
[2016-12-12] MEDS: Sodium Chloride 0.9% 1,000 ML IV SCH ×2 (10:54→18:15)
--- NOTE | 2016-12-12 12:05 | CP.PCM.PN ---
<Tiffany Joya - Last Filed: 12/12/16 12:02> Subjective - Date & Time of Evaluation Date of Evaluation: 12/12/16 Time of Evaluation: 10:15 - Subjective Subjective: 51 year old female pt seen at bedside today for left heel ulceration. Pt appears quite lethargic on exam this morning, she is somewhat alert but not answering many questions at this time. Pt seen with offloading heel cushions applied to bilateral feet. Denies any acute events overnight. Objective - Vital Signs/Intake and Output Vital Signs (last 24 hours): Temp Pulse Resp BP Pulse Ox 98 F 74 18 140/77 94 L 12/11/16 16:00 12/12/16 10:46 12/11/16 16:00 12/12/16 10:46 12/11/16 16:00 Intake and Output: 12/12/16 12/12/16 06:59 18:59 Intake Total 900 Output Total 350 Balance 550 - Medications Medications: Current Medications Albuterol/Ipratropium (Duoneb 3 Mg/0.5 Mg (3 Ml) Ud) 3 ml IH [id number] PRN PRN Reason: Shortness of Breath Atorvastatin Calcium (Lipitor) 20 mg PO DIN [facility] Last Admin: 12/11/16 19:04 Dose: 20 mg Clopidogrel Bisulfate (Plavix) 75 mg PO DAILY [facility] Last Admin: 12/12/16 10:49 Dose: 75 mg Diphenhydramine HCl (Benadryl) 25 mg PO Q6 PRN PRN Reason: Itching / Pruritus Last Admin: 12/11/16 15:01 Dose: 25 mg Diphenhydramine HCl (Benadryl) 25 mg PO HS PRN PRN Reason: Insomnia Last Admin: 12/12/16 00:42 Dose: 25 mg Docusate Sodium (Colace) 100 mg PO BID [facility] Last Admin: 12/11/16 09:24 Dose: 100 mg Gabapentin (Neurontin) 300 mg PO TID [facility] PRN Reason: Protocol Last Admin: 12/12/16 10:49 Dose: 300 mg Heparin Sodium (Porcine) (Heparin) 5,000 units SC Q12 [facility] PRN Reason: Protocol Last Admin: 11/28/16 21:28 Dose: Not Given Hydralazine HCl (Apresoline) 10 mg IVP Q6 PRN PRN Reason: Systolic Blood Pressure Hydromorphone HCl (Dilaudid) 0.5 mg IVP Q4H PRN PRN Reason: Pain, severe (8-10) Last Admin: 12/12/16 10:53 Dose: 0.5 mg Piperacillin Sod/Tazobactam Sod (Zosyn 3.375 In Ns 100ml) 100 mls @ 200 mls/hr IVPB Q6 [facility] PRN Reason: Protocol Stop: 12/27/16 12:01 Last Admin: 12/12/16 05:28 Dose: 200 mls/hr Sodium Chloride (Sodium Chloride 0.9%) 1,000 mls @ 100 mls/hr IV .Q10H [facility] Last Admin: 12/12/16 10:54 Dose: Not Given Insulin Detemir (Levemir) 12 unit SC HS [facility] Last Admin: 12/11/16 22:26 Dose: 12 unit Insulin Human Regular (Humulin R Low) 0 units SC ACHS [facility] PRN Reason: Protocol Last Admin: 12/11/16 22:21 Dose: Not Given Linezolid (Zyvox) 600 mg PO BID [facility] PRN Reason: Protocol Stop: 12/29/16 18:01 Last Admin: 12/12/16 10:49 Dose: 600 mg Lorazepam (Ativan) 0.5 mg PO TID PRN; Protocol PRN Reason: Anxiety Last Admin: 12/08/16 10:37 Dose: 0.5 mg Metoclopramide HCl (Reglan) 5 mg IVP Q6 PRN PRN Reason: Nausea/Vomiting Last Admin: 12/08/16 11:40 Dose: 5 mg Metoprolol Tartrate (Lopressor) 25 mg PO BID [facility] Last Admin: 12/12/16 10:46 Dose: 25 mg Morphine Sulfate (Morphine Extended Release Tab) 30 mg PO Q12 [facility] Last Admin: 12/12/16 10:45 Dose: 30 mg Olanzapine (Zyprexa Zydis) 5 mg PO HS [facility] PRN Reason: Protocol Last Admin: 12/11/16 22:25 Dose: Not Given Ondansetron HCl (Zofran Inj) 4 mg IVP Q4 PRN PRN Reason: Nausea/Vomiting Pantoprazole Sodium (Protonix Ec Tab) 40 mg PO 0600 [facility] Last Admin: 12/12/16 05:29 Dose: 40 mg Polyethylene Glycol (Miralax) 17 gm PO DAILY PRN PRN Reason: Constipation Last Admin: 12/11/16 09:22 Dose: 17 gm Potassium Chloride (K-Dur 20 Meq Er Tab) 40 meq PO DAILY [facility] Last Admin: 12/12/16 10:50 Dose: Not Given Trazodone HCl (Desyrel) 50 mg PO HS [facility] Last Admin: 12/11/16 22:26 Dose: Not Given Ziprasidone (Geodon Inj) 20 mg IM Q6 PRN; Protocol PRN Reason: Agitation - Labs Labs: 12/12/16 06:45 12/12/16 06:45 PT 11.6 Seconds (9.9-11.8) 11/25/16 03:00 INR 1.07 (0.93-1.08) 11/25/16 03:00 APTT 24.2 Seconds (23.7-30.8) 11/25/16 03:00 - Constitutional Appears: Non-toxic, No Acute Distress - Extremities Exam Extremities Exam: absent: Calf Tenderness Additional comments: LLE exam: Dressing to left foot appears clean dry and intact Vasc: DP & PT pulses are palpable to L foot, skin temp runs warm to cool from proximal to distal, CFT < 3 seconds to digits x 5, no pedal edema Derm: there is a full thickness ulceration noted to the left heel measuring approximately 3.8x 3.5x0.4 cm with 100% granular base, negative probe to bone, no purulence, slight sero-sanguinous drained noted to dressing, no fluctuance Ortho:mild tenderness to palpation of the left heel - Neurological Exam Neurological Exam: Awake - Psychiatric Exam Psychiatric exam: Flat Affect Assessment and Plan - Assessment and Plan (Free Text) Assessment: 51 year old female with unstageable ulceration to left heel with + OM Plan: Patient S&E at the bedside Plan discussed with attending Dr. Hughes Chart, labs, vitals reviewed: afebrile, wbc 5.9 Left foot ulceration cleansed with sterile water, dressing applied with petroleum gauze and DSD. Reminded pt again of importance of wearing offloading boot to the foot. Pt is stable from podiatry standpoint to be D/C to [facility] for terminologist abx for + OM (awaiting placement) c/w IV abx as per ID Patient to follow up with her surgeon for further wound treatment Podiatry will continue to follow patient while in house <Tyler Hughes - Last Filed: 12/13/16 08:16> Objective - Vital Signs/Intake and Output Vital Signs (last 24 hours): Temp Pulse Resp BP Pulse Ox 97.5 F L 71 18 144/80 100 12/12/16 18:09 12/12/16 18:14 12/12/16 18:09 12/12/16 18:14 12/12/16 18:09 Intake and Output: 12/13/16 12/13/16 06:59 18:59 Intake Total 840 Balance 840 - Medications Medications: Current Medications Albuterol/Ipratropium (Duoneb 3 Mg/0.5 Mg (3 Ml) Ud) 3 ml IH [id number] PRN PRN Reason: Shortness of Breath Atorvastatin Calcium (Lipitor) 20 mg PO DIN [facility] Last Admin: 12/12/16 18:10 Dose: 20 mg Clopidogrel Bisulfate (Plavix) 75 mg PO DAILY [facility] Last Admin: 12/12/16 10:49 Dose: 75 mg Diphenhydramine HCl (Benadryl) 25 mg PO Q6 PRN PRN Reason: Itching / Pruritus Last Admin: 12/12/16 13:10 Dose: 25 mg Diphenhydramine HCl (Benadryl) 25 mg PO HS PRN PRN Reason: Insomnia Last Admin: 12/13/16 00:16 Dose: 25 mg Docusate Sodium (Colace) 100 mg PO BID [facility] Last Admin: 12/11/16 09:24 Dose: 100 mg Gabapentin (Neurontin) 300 mg PO TID [facility] PRN Reason: Protocol Last Admin: 12/12/16 18:09 Dose: 300 mg Heparin Sodium (Porcine) (Heparin) 5,000 units SC Q12 [facility] PRN Reason: Protocol Last Admin: 11/28/16 21:28 Dose: Not Given Hydralazine HCl (Apresoline) 10 mg IVP Q6 PRN PRN Reason: Systolic Blood Pressure Hydromorphone HCl (Dilaudid) 0.5 mg IVP Q4H PRN PRN Reason: Pain, severe (8-10) Last Admin: 12/13/16 04:33 Dose: 0.5 mg Piperacillin Sod/Tazobactam Sod (Zosyn 3.375 In Ns 100ml) 100 mls @ 200 mls/hr IVPB Q6 [facility] PRN Reason: Protocol Stop: 12/27/16 12:01 Last Admin: 12/13/16 05:13 Dose: 200 mls/hr Sodium Chloride (Sodium Chloride 0.9%) 1,000 mls @ 100 mls/hr IV .Q10H [facility] Last Admin: 12/13/16 04:37 Dose: Not Given Insulin Detemir (Levemir) 12 unit SC HS [facility] Last Admin: 12/12/16 21:37 Dose: 12 unit Insulin Human Regular (Humulin R Low) 0 units SC ACHS [facility] PRN Reason: Protocol Last Admin: 12/12/16 21:36 Dose: 3 units Linezolid (Zyvox) 600 mg PO BID [facility] PRN Reason: Protocol Stop: 12/29/16 18:01 Last Admin: 12/12/16 18:10 Dose: 600 mg Lorazepam (Ativan) 0.5 mg PO TID PRN; Protocol PRN Reason: Anxiety Last Admin: 12/08/16 10:37 Dose: 0.5 mg Metoclopramide HCl (Reglan) 5 mg IVP Q6 PRN PRN Reason: Nausea/Vomiting Last Admin: 12/08/16 11:40 Dose: 5 mg Metoprolol Tartrate (Lopressor) 25 mg PO BID [facility] Last Admin: 12/12/16 18:14 Dose: 25 mg Morphine Sulfate (Morphine Extended Release Tab) 30 mg PO Q12 [facility] Last Admin: 12/13/16 00:15 Dose: 30 mg Olanzapine (Zyprexa Zydis) 5 mg PO [facility] PRN Reason: Protocol Last Admin: 12/13/16 00:15 Dose: 5 mg Ondansetron HCl (Zofran Inj) 4 mg IVP Q4 PRN PRN Reason: Nausea/Vomiting Pantoprazole Sodium (Protonix Ec Tab) 40 mg PO 0600 [facility] Last Admin: 12/13/16 05:12 Dose: 40 mg Polyethylene Glycol (Miralax) 17 gm PO DAILY PRN PRN Reason: Constipation Last Admin: 12/11/16 09:22 Dose: 17 gm Potassium Chloride (K-Dur 20 Meq Er Tab) 40 meq PO DAILY [facility] Last Admin: 07/21/17 10:50 Dose: Not Given Trazodone HCl (Desyrel) 50 mg PO HS [facility] Last Admin: 12/13/16 04:37 Dose: Not Given Ziprasidone (Geodon Inj) 20 mg IM Q6 PRN; Protocol PRN Reason: Agitation - Labs Labs: 12/13/16 05:20 12/13/16 05:20 PT 11.6 Seconds (9.9-11.8) 11/25/16 03:00 INR 1.07 (0.93-1.08) 11/25/16 03:00 APTT 24.2 Seconds (23.7-30.8) 11/25/16 03:00 Attending/Attestation - Attestation I have personally seen and examined this patient.: Yes I have fully participated in the care of the patient.: Yes I have reviewed all pertinent clinical information, including history, physical exam and plan: Yes
--- NOTE | 2016-12-12 15:38 | CP.PCM.PN ---
Subjective - Date & Time of Evaluation Date of Evaluation: 12/12/16 Time of Evaluation: 10:55 - Subjective Subjective: Comfortable, no fevers, not in distress. Objective - Vital Signs/Intake and Output Vital Signs (last 24 hours): Temp Pulse Resp BP Pulse Ox 98 F 72 18 147/88 94 L 12/11/16 16:00 12/11/16 19:01 12/11/16 16:00 12/11/16 19:01 12/11/16 16:00 Intake and Output: 12/12/16 12/12/16 06:59 18:59 Intake Total 900 Output Total 350 Balance 550 - Medications Medications: Current Medications Albuterol/Ipratropium (Duoneb 3 Mg/0.5 Mg (3 Ml) Ud) 3 ml IH [id number] PRN PRN Reason: Shortness of Breath Atorvastatin Calcium (Lipitor) 20 mg PO DIN [facility] Last Admin: 12/11/16 19:04 Dose: 20 mg Clopidogrel Bisulfate (Plavix) 75 mg PO DAILY [facility] Last Admin: 12/11/16 09:30 Dose: 75 mg Diphenhydramine HCl (Benadryl) 25 mg PO Q6 PRN PRN Reason: Itching / Pruritus Last Admin: 12/11/16 15:01 Dose: 25 mg Diphenhydramine HCl (Benadryl) 25 mg PO HS PRN PRN Reason: Insomnia Last Admin: 12/12/16 00:42 Dose: 25 mg Docusate Sodium (Colace) 100 mg PO BID [facility] Last Admin: 12/11/16 09:24 Dose: 100 mg Gabapentin (Neurontin) 300 mg PO TID [facility] PRN Reason: Protocol Last Admin: 12/11/16 19:03 Dose: 300 mg Heparin Sodium (Porcine) (Heparin) 5,000 units SC Q12 [facility] PRN Reason: Protocol Last Admin: 11/28/16 21:28 Dose: Not Given Hydralazine HCl (Apresoline) 10 mg IVP Q6 PRN PRN Reason: Systolic Blood Pressure Hydromorphone HCl (Dilaudid) 0.5 mg IVP Q4H PRN PRN Reason: Pain, severe (8-10) Last Admin: 12/12/16 05:27 Dose: 0.5 mg Piperacillin Sod/Tazobactam Sod (Zosyn 3.375 In Ns 100ml) 100 mls @ 200 mls/hr IVPB Q6 [facility] PRN Reason: Protocol Stop: 12/27/16 12:01 Last Admin: 12/12/16 05:28 Dose: 200 mls/hr Sodium Chloride (Sodium Chloride 0.9%) 1,000 mls @ 100 mls/hr IV .Q10H [facility] Last Admin: 12/11/16 12:14 Dose: Not Given Insulin Detemir (Levemir) 12 unit SC HS [facility] Last Admin: 12/11/16 22:26 Dose: 12 unit Insulin Human Regular (Humulin R Low) 0 units SC ACHS [facility] PRN Reason: Protocol Last Admin: 12/11/16 22:21 Dose: Not Given Linezolid (Zyvox) 600 mg PO BID [facility] PRN Reason: Protocol Stop: 12/29/16 18:01 Last Admin: 12/11/16 19:04 Dose: 600 mg Lorazepam (Ativan) 0.5 mg PO TID PRN; Protocol PRN Reason: Anxiety Last Admin: 12/08/16 10:37 Dose: 0.5 mg Metoclopramide HCl (Reglan) 5 mg IVP Q6 PRN PRN Reason: Nausea/Vomiting Last Admin: 12/08/16 11:40 Dose: 5 mg Metoprolol Tartrate (Lopressor) 25 mg PO BID [facility] Last Admin: 12/11/16 19:01 Dose: 25 mg Morphine Sulfate (Morphine Extended Release Tab) 30 mg PO Q12 [facility] Last Admin: 12/11/16 22:26 Dose: 30 mg Olanzapine (Zyprexa Zydis) 5 mg PO [facility] PRN Reason: Protocol Last Admin: 12/11/16 22:25 Dose: Not Given Ondansetron HCl (Zofran Inj) 4 mg IVP Q4 PRN PRN Reason: Nausea/Vomiting Pantoprazole Sodium (Protonix Ec Tab) 40 mg PO 0600 [facility] Last Admin: 12/12/16 05:29 Dose: 40 mg Polyethylene Glycol (Miralax) 17 gm PO DAILY PRN PRN Reason: Constipation Last Admin: 12/11/16 09:22 Dose: 17 gm Potassium Chloride (K-Dur 20 Meq Er Tab) 40 meq PO DAILY [facility] Last Admin: 12/11/16 09:44 Dose: Not Given Trazodone HCl (Desyrel) 50 mg PO HS [facility] Last Admin: 12/11/16 22:26 Dose: Not Given Ziprasidone (Geodon Inj) 20 mg IM Q6 PRN; Protocol PRN Reason: Agitation - Labs Labs: 12/12/16 06:45 12/12/16 06:45 PT 11.6 Seconds (9.9-11.8) 11/25/16 03:00 INR 1.07 (0.93-1.08) 11/25/16 03:00 APTT 24.2 Seconds (23.7-30.8) 11/25/16 03:00 - Constitutional Appears: Non-toxic, No Acute Distress - Head Exam Head Exam: NORMAL INSPECTION - ENT Exam ENT Exam: Mucous Membranes Moist - Neck Exam Neck Exam: absent: Lymphadenopathy, Meningismus - Respiratory Exam Respiratory Exam: Decreased Breath Sounds - Cardiovascular Exam Cardiovascular Exam: +S1, +S2 - GI/Abdominal Exam GI & Abdominal Exam: Soft. absent: Tenderness Assessment and Plan - Assessment and Plan (Free Text) Plan: Assessment Probable left foot osteomyelitis (was on antibiotics prior to admission), growing staph aureus and multidrug resistant Proteus only sensitive to Zosyn, and MRSA S/P left PICC line placement dyslipidemia DM HTN history of cholecystitis chronic renal failure history of uterine cancer CAD history of depression history of DVT Plan continue Zosyn and Zyvox; discussed with Dr. Brady - patient has exposed bone will follow clinically while the patient is in the hospital; patient should have 4-6 weeks of Zosyn and Zyvox with weekly ESR, CRP, CBC, CMP
[2016-12-12] MEDS: Insulin Detemir 100 units/ml Vial (Levemir) SC SCH (21:37)
[2016-12-13] MEDS: Morphine 30 mg SR Tab PO SCH ×3 (00:15→22:52)
[2016-12-13] MEDS: OLANZapine 5 mg Disintegrating Tab PO SCH ×2 (00:15→21:57)
[2016-12-13] MEDS: HYDROmorphone 0.5 mg/0.5 ml ISec IVP PRN ×5 (00:16→20:52)
[2016-12-13] MEDS: Piperacillin/Tazobact 3.375 gm 100 ML IVPB SCH ×5 (00:34→23:59)
[2016-12-13] MEDS: Sodium Chloride 0.9% 1,000 ML IV SCH ×3 (04:37→21:57)
[2016-12-13] MEDS: Pantoprazole 40 mg EC Tab PO SCH (05:12)
[2016-12-13 05:27] LABS: ADD MANUAL DIFF? NO
[2016-12-13 05:39] LABS: ALB/GLOB RATIO 0.9 (1.1-1.8); BILIRUBIN,TOTAL 0.3 mg/dL (0.2-1.3); CALCIUM 8.2 mg/dL (8.4-10.5); POTASSIUM 4.5 mmol/L (3.6-5.0); TOTAL PROTEIN 6.1 g/dL (5.8-8.3)
[2016-12-13 06:42] LABS: BASO # 0.03 K/mm3 (0.0-2.0); BASO % 0.5 % (0.0-3.0); EOS # 0.4 (0.0-0.7); EOS % 6.9 % (1.5-5.0); HEMATOCRIT 27.6 % (36.0-48.0); LYMPH # 2.5 (1.2-3.4); LYMPH % 38.7 % (22.0-35.0); MEAN CELL VOLUME 80.7 fL (80.0-105.0); MEAN CORPUSCULAR HEMOGLOBIN 26.3 pg (25.0-35.0); MEAN CORPUSCULAR HGB CONC 32.6 g/dl (31.0-37.0); MEAN PLATELET VOLUME 9.6 fl (7.0-11.0); MONO # 0.4 (0.1-0.6); MONO % 6.9 % (1.0-6.0); PLATELET COUNT 215 10^3/uL (120.0-450.0); RED CELL DISTRIBUTION WIDTH 16.1 % (11.5-14.5); WHITE BLOOD COUNT 6.4 10^3/ul (4.5-11.0)
[2016-12-13] MEDS: Insulin Reg-LOW-Coverage SC SCH ×4 (08:35→21:55)
[2016-12-13] MEDS: POLYETHYLENE GLYCOL 3350 17 GM/Dose PACKET PO PRN (09:12)
[2016-12-13] MEDS: Potassium Chloride 20 mEq ER Tab PO SCH (09:14)
--- NOTE | 2016-12-13 09:14 | CP.PCM.PN ---
<Timbo Hernandez - Last Filed: 12/13/16 09:10> Subjective - Date & Time of Evaluation Date of Evaluation: 12/13/16 Time of Evaluation: 09:10 - Subjective Subjective: 51 y/o female seen at bedside today with attending Dr. Hughes for left heel ulceration. She appears to be awake and alert this morning. She is seen resting comfortably at bedside. She is seen without offloading heel cushions. Dressing is c/d/i. She denies any acute events overnight. She denies n/v/sob/cp/chills or fever. Objective - Vital Signs/Intake and Output Vital Signs (last 24 hours): Temp Pulse Resp BP Pulse Ox 97.5 F L 71 18 144/80 100 12/12/16 18:09 12/12/16 18:14 12/12/16 18:09 12/12/16 18:14 12/12/16 18:09 Intake and Output: 12/13/16 12/13/16 06:59 18:59 Intake Total 840 Balance 840 - Medications Medications: Current Medications Albuterol/Ipratropium (Duoneb 3 Mg/0.5 Mg (3 Ml) Ud) 3 ml IH [id number] PRN PRN Reason: Shortness of Breath Atorvastatin Calcium (Lipitor) 20 mg PO DIN [facility] Last Admin: 12/12/16 18:10 Dose: 20 mg Clopidogrel Bisulfate (Plavix) 75 mg PO DAILY [facility] Last Admin: 12/12/16 10:49 Dose: 75 mg Diphenhydramine HCl (Benadryl) 25 mg PO Q6 PRN PRN Reason: Itching / Pruritus Last Admin: 12/12/16 13:10 Dose: 25 mg Diphenhydramine HCl (Benadryl) 25 mg PO HS PRN PRN Reason: Insomnia Last Admin: 12/13/16 00:16 Dose: 25 mg Docusate Sodium (Colace) 100 mg PO BID [facility] Last Admin: 12/11/16 09:24 Dose: 100 mg Gabapentin (Neurontin) 300 mg PO TID [facility] PRN Reason: Protocol Last Admin: 12/12/16 18:09 Dose: 300 mg Heparin Sodium (Porcine) (Heparin) 5,000 units SC Q12 [facility] PRN Reason: Protocol Last Admin: 11/28/16 21:28 Dose: Not Given Hydralazine HCl (Apresoline) 10 mg IVP Q6 PRN PRN Reason: Systolic Blood Pressure Hydromorphone HCl (Dilaudid) 0.5 mg IVP Q4H PRN PRN Reason: Pain, severe (8-10) Last Admin: 12/13/16 04:33 Dose: 0.5 mg Piperacillin Sod/Tazobactam Sod (Zosyn 3.375 In Ns 100ml) 100 mls @ 200 mls/hr IVPB Q6 [facility] PRN Reason: Protocol Stop: 12/27/16 12:01 Last Admin: 12/13/16 05:13 Dose: 200 mls/hr Sodium Chloride (Sodium Chloride 0.9%) 1,000 mls @ 100 mls/hr IV .Q10H [facility] Last Admin: 12/13/16 04:37 Dose: Not Given Insulin Detemir (Levemir) 12 unit SC HS [facility] Last Admin: 12/12/16 21:37 Dose: 12 unit Insulin Human Regular (Humulin R Low) 0 units SC ACHS [facility] PRN Reason: Protocol Last Admin: 12/13/16 08:35 Dose: 4 units Linezolid (Zyvox) 600 mg PO BID [facility] PRN Reason: Protocol Stop: 12/29/16 18:01 Last Admin: 12/12/16 18:10 Dose: 600 mg Lorazepam (Ativan) 0.5 mg PO TID PRN; Protocol PRN Reason: Anxiety Last Admin: 12/08/16 10:37 Dose: 0.5 mg Metoclopramide HCl (Reglan) 5 mg IVP Q6 PRN PRN Reason: Nausea/Vomiting Last Admin: 12/08/16 11:40 Dose: 5 mg Metoprolol Tartrate (Lopressor) 25 mg PO BID [facility] Last Admin: 12/12/16 18:14 Dose: 25 mg Morphine Sulfate (Morphine Extended Release Tab) 30 mg PO Q12 [facility] Last Admin: 12/13/16 00:15 Dose: 30 mg Olanzapine (Zyprexa Zydis) 5 mg PO HS [facility] PRN Reason: Protocol Last Admin: 12/13/16 00:15 Dose: 5 mg Ondansetron HCl (Zofran Inj) 4 mg IVP Q4 PRN PRN Reason: Nausea/Vomiting Pantoprazole Sodium (Protonix Ec Tab) 40 mg PO 0600 [facility] Last Admin: 12/13/16 05:12 Dose: 40 mg Polyethylene Glycol (Miralax) 17 gm PO DAILY PRN PRN Reason: Constipation Last Admin: 12/11/16 09:22 Dose: 17 gm Potassium Chloride (K-Dur 20 Meq Er Tab) 40 meq PO DAILY [facility] Last Admin: 12/12/16 10:50 Dose: Not Given Trazodone HCl (Desyrel) 50 mg PO HS [facility] Last Admin: 12/13/16 04:37 Dose: Not Given Ziprasidone (Geodon Inj) 20 mg IM Q6 PRN; Protocol PRN Reason: Agitation - Labs Labs: 12/13/16 05:20 12/13/16 05:20 PT 11.6 Seconds (9.9-11.8) 11/25/16 03:00 INR 1.07 (0.93-1.08) 11/25/16 03:00 APTT 24.2 Seconds (23.7-30.8) 11/25/16 03:00 - Constitutional Appears: Well, Non-toxic, No Acute Distress - Extremities Exam Additional comments: LLE exam: Vasc: DP & PT pulses are palpable to L foot, skin temp runs warm to cool from proximal to distal, CFT < 3 seconds to digits x 5, no pedal edema noted Derm: there is a full thickness ulceration noted to the left heel measuring approximately 3.8x 3.5x0.4 cm with 100% granular base, negative probe to bone, no purulence, slight sero-sanguinous drained noted to dressing, no fluctuance noted Ortho:no pain to palpation of the left heel Neuro: protective sensation intact - Neurological Exam Neurological Exam: Alert, Awake, Oriented x3 - Psychiatric Exam Psychiatric exam: Normal Affect, Normal Mood Assessment and Plan - Assessment and Plan (Free Text) Assessment: 51 year old female with unstageable ulceration to left heel with + OM Plan: Patient seen and evaluated at bedside with attending Dr. Hughes Chart, labs, vitals reviewed: afebrile, WBC=6.4 Left foot ulceration cleansed with sterile water, dressing applied with petroleum gauze and DSD. Educated on the importance with compliance in wearing heel boot to left heel Pt is stable from podiatry standpoint to be D/C to [facility] for group home abx for + OM c/w IV abx as per ID Patient to follow up with her surgeon for further wound treatment Podiatry will continue to follow patient while in house <Tyler Hughes - Last Filed: 12/16/16 11:47> Objective - Vital Signs/Intake and Output Vital Signs (last 24 hours): Temp Pulse Resp BP Pulse Ox 97.8 F 80 16 127/65 97 12/16/16 07:30 12/16/16 11:28 12/16/16 07:30 12/16/16 11:28 12/16/16 07:30 Intake and Output: 12/16/16 12/16/16 06:59 18:59 Intake Total 420 Balance 420 - Medications Medications: Current Medications Albuterol/Ipratropium (Duoneb 3 Mg/0.5 Mg (3 Ml) Ud) 3 ml IH [id number] PRN PRN Reason: Shortness of Breath Atorvastatin Calcium (Lipitor) 20 mg PO DIN [facility] Last Admin: 12/15/16 17:58 Dose: 20 mg Clopidogrel Bisulfate (Plavix) 75 mg PO DAILY [facility] Last Admin: 12/16/16 11:27 Dose: 75 mg Diphenhydramine HCl (Benadryl) 25 mg PO Q6 PRN PRN Reason: Itching / Pruritus Last Admin: 12/13/16 22:53 Dose: 25 mg Diphenhydramine HCl (Benadryl) 25 mg PO HS PRN PRN Reason: Insomnia Last Admin: 12/15/16 23:04 Dose: 25 mg Docusate Sodium (Colace) 100 mg PO BID [facility] Last Admin: 12/16/16 11:30 Dose: Not Given Gabapentin (Neurontin) 300 mg PO TID [facility] PRN Reason: Protocol Last Admin: 12/16/16 11:28 Dose: 300 mg Heparin Sodium (Porcine) (Heparin) 5,000 units SC Q12 [facility] PRN Reason: Protocol Last Admin: 12/16/16 11:26 Dose: Not Given Hydralazine HCl (Apresoline) 10 mg IVP Q6 PRN PRN Reason: Systolic Blood Pressure Last Admin: 12/16/16 06:40 Dose: 10 mg Hydromorphone HCl (Dilaudid) 0.5 mg IVP Q4H PRN PRN Reason: Pain, severe (8-10) Last Admin: 12/16/16 08:32 Dose: 0.5 mg Piperacillin Sod/Tazobactam Sod (Zosyn 3.375 In Ns 100ml) 100 mls @ 200 mls/hr IVPB Q6 [facility] PRN Reason: Protocol Stop: 12/27/16 12:01 Last Admin: 12/16/16 11:25 Dose: 200 mls/hr Sodium Chloride (Sodium Chloride 0.9%) 1,000 mls @ 100 mls/hr IV .Q10H [facility] Last Admin: 12/16/16 11:29 Dose: Not Given Insulin Detemir (Levemir) 20 unit SC HS [facility] Last Admin: 12/15/16 21:58 Dose: 20 unit Insulin Human Regular (Humulin R Low) 0 units SC ACHS [facility] PRN Reason: Protocol Last Admin: 12/16/16 11:29 Dose: 2 units Linezolid (Zyvox) 600 mg PO BID [facility] PRN Reason: Protocol Stop: 12/29/16 18:01 Last Admin: 12/16/16 11:27 Dose: 600 mg Lorazepam (Ativan) 0.5 mg PO TID PRN; Protocol PRN Reason: Anxiety Last Admin: 12/08/16 10:37 Dose: 0.5 mg Metoclopramide HCl (Reglan) 5 mg IVP Q6 PRN PRN Reason: Nausea/Vomiting Last Admin: 12/08/16 11:40 Dose: 5 mg Metoprolol Tartrate (Lopressor) 25 mg PO BID [facility] Last Admin: 12/16/16 11:28 Dose: 25 mg Morphine Sulfate (Morphine Extended Release Tab) 30 mg PO Q12 [facility] Stop: 12/21/16 23:59 Last Admin: 12/16/16 11:27 Dose: 30 mg Olanzapine (Zyprexa Zydis) 5 mg PO HS [facility] PRN Reason: Protocol Last Admin: 12/15/16 22:01 Dose: Not Given Ondansetron HCl (Zofran Inj) 4 mg IVP Q4 PRN PRN Reason: Nausea/Vomiting Pantoprazole Sodium (Protonix Ec Tab) 40 mg PO 0600 [facility] Last Admin: 12/16/16 06:31 Dose: 40 mg Polyethylene Glycol (Miralax) 17 gm PO DAILY PRN PRN Reason: Constipation Last Admin: 12/13/16 09:12 Dose: 17 gm Trazodone HCl (Desyrel) 50 mg PO HS [facility]KKI Last Admin: 12/15/16 22:00 Dose: Not Given Ziprasidone (Geodon Inj) 20 mg IM Q6 PRN; Protocol PRN Reason: Agitation - Labs Labs: 12/14/16 07:00 12/14/16 07:00 PT 11.6 Seconds (9.9-11.8) 11/25/16 03:00 INR 1.07 (0.93-1.08) 11/25/16 03:00 APTT 24.2 Seconds (23.7-30.8) 11/25/16 03:00 Attending/Attestation - Attestation I have personally seen and examined this patient.: Yes I have fully participated in the care of the patient.: Yes I have reviewed all pertinent clinical information, including history, physical exam and plan: Yes
--- NOTE | 2016-12-13 10:19 | PN ---
DATE: 12/13/2016 SUBJECTIVE: The patient is in bed, in no acute distress, seen earlier this morning. PHYSICAL EXAMINATION VITAL SIGNS: Temperature is 97, blood pressure is 140/80, and respiratory rate of 18. HEENT: Unremarkable. NECK: Supple. LUNGS: Decreased breath sounds. CARDIOPULMONARY: Heart exam is normal S1 and S2. ABDOMEN: Soft and nontender. LABORATORY DATA: Examination reveals a white count of 6.4, hemoglobin of 9, and platelets of 215. Chemistries reveal a BUN of 18 and creatinine of 1.5. Proteus mirabilis and MRSA. Review of orders revealed the patient to be on Zosyn and Zyvox. ASSESSMENT AND PLAN: A 51-year-old female with left foot osteomyelitis, Staphylococcus aureus which is methicillin-resistant Staphylococcus aureus and Proteus on and Zosyn. Status post left peripherally inserted central catheter line placement, dyslipidemia, hypertension, history of cholecystitis and chronic renal failure and history of uterine cancer, depression and history of deep venous thrombosis . Will need four to six weeks of antibiotics with a weekly CBC, SMA 18, sedimentation rate, and C-reactive protein. We will follow with you. Chandana Acevedo MD
--- NOTE | 2016-12-13 11:04 | CP.PCM.PN ---
<TRES ARTHUR - Last Filed: 12/13/16 13:14> Subjective - Date & Time of Evaluation Date of Evaluation: 12/13/16 Time of Evaluation: 08:00 - Subjective Subjective: Medicine Progress Note: Pt seen and assessed at bedside. Pt had no complaints this morning. Pt denied headache, fever, dizziness, shortness of breath, chest pain, N/V, abdominal pain or constipation. Objective - Vital Signs/Intake and Output Vital Signs (last 24 hours): Temp Pulse Resp BP Pulse Ox 97.5 F L 71 18 144/80 100 12/12/16 18:09 12/12/16 18:14 12/12/16 18:09 12/12/16 18:14 12/12/16 18:09 Intake and Output: 12/13/16 12/13/16 06:59 18:59 Intake Total 840 Balance 840 - Medications Medications: Current Medications Albuterol/Ipratropium (Duoneb 3 Mg/0.5 Mg (3 Ml) Ud) 3 ml IH [id number] PRN PRN Reason: Shortness of Breath Atorvastatin Calcium (Lipitor) 20 mg PO DIN [facility] Last Admin: 12/12/16 18:10 Dose: 20 mg Clopidogrel Bisulfate (Plavix) 75 mg PO DAILY [facility] Last Admin: 12/13/16 09:12 Dose: 75 mg Diphenhydramine HCl (Benadryl) 25 mg PO Q6 PRN PRN Reason: Itching / Pruritus Last Admin: 12/12/16 13:10 Dose: 25 mg Diphenhydramine HCl (Benadryl) 25 mg PO HS PRN PRN Reason: Insomnia Last Admin: 12/13/16 00:16 Dose: 25 mg Docusate Sodium (Colace) 100 mg PO BID [facility] Last Admin: 12/11/16 09:24 Dose: 100 mg Gabapentin (Neurontin) 300 mg PO TID [facility] PRN Reason: Protocol Last Admin: 12/13/16 09:14 Dose: 300 mg Heparin Sodium (Porcine) (Heparin) 5,000 units SC Q12 [facility]I PRN Reason: Protocol Last Admin: 11/28/16 21:28 Dose: Not Given Hydralazine HCl (Apresoline) 10 mg IVP Q6 PRN PRN Reason: Systolic Blood Pressure Hydromorphone HCl (Dilaudid) 0.5 mg IVP Q4H PRN PRN Reason: Pain, severe (8-10) Last Admin: 12/13/16 10:25 Dose: 0.5 mg Piperacillin Sod/Tazobactam Sod (Zosyn 3.375 In Ns 100ml) 100 mls @ 200 mls/hr IVPB Q6 MIKKI PRN Reason: Protocol Stop: 12/27/16 12:01 Last Admin: 12/13/16 05:13 Dose: 200 mls/hr Sodium Chloride (Sodium Chloride 0.9%) 1,000 mls @ 100 mls/hr IV .Q10H [facility] Last Admin: 12/13/16 04:37 Dose: Not Given Insulin Detemir (Levemir) 12 unit SC HS [facility] Last Admin: 12/12/16 21:37 Dose: 12 unit Insulin Human Regular (Humulin R Low) 0 units SC ACHS [facility] PRN Reason: Protocol Last Admin: 12/13/16 08:35 Dose: 4 units Linezolid (Zyvox) 600 mg PO BID [facility] PRN Reason: Protocol Stop: 12/29/16 18:01 Last Admin: 12/13/16 09:15 Dose: 600 mg Lorazepam (Ativan) 0.5 mg PO TID PRN; Protocol PRN Reason: Anxiety Last Admin: 12/08/16 10:37 Dose: 0.5 mg Metoclopramide HCl (Reglan) 5 mg IVP Q6 PRN PRN Reason: Nausea/Vomiting Last Admin: 12/08/16 11:40 Dose: 5 mg Metoprolol Tartrate (Lopressor) 25 mg PO BID [facility] Last Admin: 12/13/16 09:13 Dose: 25 mg Morphine Sulfate (Morphine Extended Release Tab) 30 mg PO Q12 [facility] Last Admin: 12/13/16 09:13 Dose: 30 mg Olanzapine (Zyprexa Zydis) 5 mg PO HS [facility] PRN Reason: Protocol Last Admin: 12/13/16 00:15 Dose: 5 mg Ondansetron HCl (Zofran Inj) 4 mg IVP Q4 PRN PRN Reason: Nausea/Vomiting Pantoprazole Sodium (Protonix Ec Tab) 40 mg PO 0600 [facility] Last Admin: 12/13/16 05:12 Dose: 40 mg Polyethylene Glycol (Miralax) 17 gm PO DAILY PRN PRN Reason: Constipation Last Admin: 12/13/16 09:12 Dose: 17 gm Potassium Chloride (K-Dur 20 Meq Er Tab) 40 meq PO DAILY [facility] Last Admin: 12/13/16 09:14 Dose: 40 meq Trazodone HCl (Desyrel) 50 mg PO HS [facility]KKI Last Admin: 12/13/16 04:37 Dose: Not Given Ziprasidone (Geodon Inj) 20 mg IM Q6 PRN; Protocol PRN Reason: Agitation - Labs Labs: 12/13/16 05:20 12/13/16 05:20 PT 11.6 Seconds (9.9-11.8) 11/25/16 03:00 INR 1.07 (0.93-1.08) 11/25/16 03:00 APTT 24.2 Seconds (23.7-30.8) 11/25/16 03:00 - Constitutional Appears: No Acute Distress - Head Exam Head Exam: NORMAL INSPECTION, NORMOCEPHALIC - Eye Exam Eye Exam: EOMI, Normal appearance - ENT Exam ENT Exam: Mucous Membranes Moist, Normal Exam - Neck Exam Neck Exam: Full ROM. absent: Lymphadenopathy - Respiratory Exam Respiratory Exam: Clear to Ausculation Bilateral, NORMAL BREATHING PATTERN. absent: Rales, Rhonchi, Wheezes, Respiratory Distress - Cardiovascular Exam Cardiovascular Exam: REGULAR RHYTHM, +S1, +S2. absent: Murmur - GI/Abdominal Exam GI & Abdominal Exam: Soft, Normal Bowel Sounds. absent: Distended, Firm, Tenderness - Extremities Exam Extremities Exam: Normal Capillary Refill. absent: Calf Tenderness, Joint Swelling, Pedal Edema Additional comments: L heel dressing clean, dry and intact - Back Exam Back Exam: NORMAL INSPECTION - Neurological Exam Neurological Exam: Alert, Awake, Oriented x3 - Psychiatric Exam Psychiatric exam: Normal Affect, Normal Mood - Skin Skin Exam: Dry, Intact, Normal Color, Warm Assessment and Plan - Assessment and Plan (Free Text) Assessment: Ms. Kerr is a 51 yo female with a past medical history of FL, hyperlipidemia, diabetes, HTN, CKD, asthma, DVT, uterine cancer, lung cancer and thromboembolic disease S/P left heel osteomyelitis debridement who was admitted for evaluation and treatment of chest pain and left heel pain. Plan: 1. Osteomyelitis of L heel -cont with Zosyn and Zyvox (week 2), per ID -pain control with PO morphine and IV dilaudid -wound cultures showed MRSA and amikacin sensitive proteus mirabilis -4-6 weeks of Zosyn and 3-4 weeks of Zyvox with weekly ESR, CRP, CBC, CMP. Will consider PO antibiotics if these trend downward, per ID -podiatry and wound care on board, all recommendations appreciated -PT/OT with new evaluation on 12/12 stating [facility] placement on DC -SW/case management working on acute care placement; discharge from hospital delayed due to placement issues 2. Chronic Pancreatitis -pt refusing NS -cont with humilin and levemir -pain control with morphine and dilaudid -heart healthy diet with low fat -will continue to monitor 3. Delirium -psychiatry following, all recommendations appreciated -psychiatry notes improvement; medicine team also notes objective improvement in communication -PRN Geodon, PRN Risperidone and PRN Ativan -zyprexa zydis 5mg HS, per psych 4. Constipation - PRN miralax - monitor diarrhea 5. Thyroid Nodule -TSH wnl -asymptomatic at this time -will continue to monitor 6. Vision Changes -optho consulted and agreed to see as outpatient -will assist pt in scheduling upon d/c -will cont to monitor 7. Anemia -Iron studies within normal limits -B12 and Folate WNL -continuing to monitor with daily CBC's 8. Asthma -Duoneb q4 PRN 9. History of Medication Noncompliance - patient noticeably more compliant with medication therapy; patient refused IVF on 12/13 - will continue to educate patient on the importance of medication compliance with all prescribed medications when appropriate 10. History of Heart and Uterine Cancer - no mention of heart cancer or labs/imaging documenting other malignancies/ treatment of said malignancies in review of [facility] records - no written record or means of attaining written record were provided by patient despite multiple inquiries - noncontrast CT of chest/abdomen/ pelvis showed no acute disease processes in heart or lungs - will continue to monitor clinically and consult hem/onc when clinically appropriate 11. GI/DVT prophylaxis -protonix/ SCD Patient seen and case discussed with attending physician, Dr. Manuel. <Jorge Manuel - Last Filed: 12/13/16 15:56> Objective - Vital Signs/Intake and Output Vital Signs (last 24 hours): Temp Pulse Resp BP Pulse Ox 97.5 F L 71 18 144/80 100 12/12/16 18:09 12/12/16 18:14 12/12/16 18:09 12/12/16 18:14 12/12/16 18:09 Intake and Output: 12/13/16 12/13/16 06:59 18:59 Intake Total 840 Balance 840 - Medications Medications: Current Medications Albuterol/Ipratropium (Duoneb 3 Mg/0.5 Mg (3 Ml) Ud) 3 ml IH [id number] PRN PRN Reason: Shortness of Breath Atorvastatin Calcium (Lipitor) 20 mg PO DIN [facility] Last Admin: 12/12/16 18:10 Dose: 20 mg Clopidogrel Bisulfate (Plavix) 75 mg PO DAILY [facility] Last Admin: 12/13/16 09:12 Dose: 75 mg Diphenhydramine HCl (Benadryl) 25 mg PO Q6 PRN PRN Reason: Itching / Pruritus Last Admin: 12/13/16 13:59 Dose: 25 mg Diphenhydramine HCl (Benadryl) 25 mg PO HS PRN PRN Reason: Insomnia Last Admin: 12/13/16 00:16 Dose: 25 mg Docusate Sodium (Colace) 100 mg PO BID [facility] Last Admin: 12/11/16 09:24 Dose: 100 mg Gabapentin (Neurontin) 300 mg PO TID [facility]I PRN Reason: Protocol Last Admin: 12/13/16 13:59 Dose: 300 mg Heparin Sodium (Porcine) (Heparin) 5,000 units SC Q12 [facility]KKI PRN Reason: Protocol Last Admin: 11/28/16 21:28 Dose: Not Given Hydralazine HCl (Apresoline) 10 mg IVP Q6 PRN PRN Reason: Systolic Blood Pressure Hydromorphone HCl (Dilaudid) 0.5 mg IVP Q4H PRN PRN Reason: Pain, severe (8-10) Last Admin: 12/13/16 10:25 Dose: 0.5 mg Piperacillin Sod/Tazobactam Sod (Zosyn 3.375 In Ns 100ml) 100 mls @ 200 mls/hr IVPB Q6 MIKKI PRN Reason: Protocol Stop: 12/27/16 12:01 Last Admin: 12/13/16 11:56 Dose: 200 mls/hr Sodium Chloride (Sodium Chloride 0.9%) 1,000 mls @ 100 mls/hr IV .Q10H [facility] Last Admin: 12/13/16 04:37 Dose: Not Given Insulin Detemir (Levemir) 12 unit SC HS [facility] Last Admin: 12/12/16 21:37 Dose: 12 unit Insulin Human Regular (Humulin R Low) 0 units SC ACHS [facility]KKI PRN Reason: Protocol Last Admin: 12/13/16 11:57 Dose: 2 units Linezolid (Zyvox) 600 mg PO BID [facility] PRN Reason: Protocol Stop: 12/29/16 18:01 Last Admin: 12/13/16 09:15 Dose: 600 mg Lorazepam (Ativan) 0.5 mg PO TID PRN; Protocol PRN Reason: Anxiety Last Admin: 12/08/16 10:37 Dose: 0.5 mg Metoclopramide HCl (Reglan) 5 mg IVP Q6 PRN PRN Reason: Nausea/Vomiting Last Admin: 12/08/16 11:40 Dose: 5 mg Metoprolol Tartrate (Lopressor) 25 mg PO BID [facility] Last Admin: 12/13/16 09:13 Dose: 25 mg Morphine Sulfate (Morphine Extended Release Tab) 30 mg PO Q12 [facility] Last Admin: 12/13/16 09:13 Dose: 30 mg Olanzapine (Zyprexa Zydis) 5 mg PO HS [facility] PRN Reason: Protocol Last Admin: 12/13/16 00:15 Dose: 5 mg Ondansetron HCl (Zofran Inj) 4 mg IVP Q4 PRN PRN Reason: Nausea/Vomiting Pantoprazole Sodium (Protonix Ec Tab) 40 mg PO 0600 [facility] Last Admin: 12/13/16 05:12 Dose: 40 mg Polyethylene Glycol (Miralax) 17 gm PO DAILY PRN PRN Reason: Constipation Last Admin: 12/13/16 09:12 Dose: 17 gm Potassium Chloride (K-Dur 20 Meq Er Tab) 40 meq PO DAILY [facility] Last Admin: 12/13/16 09:14 Dose: 40 meq Trazodone HCl (Desyrel) 50 mg PO HS [facility] Last Admin: 12/13/16 04:37 Dose: Not Given Ziprasidone (Geodon Inj) 20 mg IM Q6 PRN; Protocol PRN Reason: Agitation - Labs Labs: 12/13/16 05:20 12/13/16 05:20 PT 11.6 Seconds (9.9-11.8) 11/25/16 03:00 INR 1.07 (0.93-1.08) 11/25/16 03:00 APTT 24.2 Seconds (23.7-30.8) 11/25/16 03:00 Attending/Attestation - Attestation I have personally seen and examined this patient.: Yes I have fully participated in the care of the patient.: Yes I have reviewed all pertinent clinical information, including history, physical exam and plan: Yes Notes (Text): 12/13/16 14:40 Attending note; Patient seen and examined with resident. Patient is alert and awake and calm today. Patient is a 51 year old female with past medical history of FL, diabetes, hypertension, chronic heel ulcer and chronic OM who was recently discharged to [facility] on iv antibiotics who presented with complaint of chest pain.workup is negative. Currently on IV zosyn. Podiatry follow-up appreciated. Dressing changed. Off loading boots applied. Patient also has CKD and anemia. She is on levemir and insulin ss for diabetes. dosage increased today. Psychiatric reevaluation appreciated. Again she is encouraged to take her medications. Risks of medication noncompliance explained to the patient. case discussed with case management associate Sushma zheng and director of social work Kevin Crockett in detail. 12/13/16 15:53
[2016-12-13] MEDS: Insulin Detemir 100 units/ml Vial (Levemir) SC SCH (21:51)
[2016-12-14] MEDS: HYDROmorphone 0.5 mg/0.5 ml ISec IVP PRN ×5 (00:54→22:48)
[2016-12-14] MEDS: Pantoprazole 40 mg EC Tab PO SCH (05:39)
[2016-12-14] MEDS: Piperacillin/Tazobact 3.375 gm 100 ML IVPB SCH ×4 (05:39→23:00)
[2016-12-14 07:14] LABS: ADD MANUAL DIFF? NO
[2016-12-14 07:25] LABS: BASO # 0.03 K/mm3 (0.0-2.0); BASO % 0.5 % (0.0-3.0); EOS # 0.5 (0.0-0.7); EOS % 7.6 % (1.5-5.0); GRAN # 3.79 (1.4-6.5); GRAN % 57.1 % (50.0-68.0); LYMPH % 30.1 % (22.0-35.0); MEAN CELL VOLUME 80.1 fL (80.0-105.0); MEAN CORPUSCULAR HEMOGLOBIN 26.1 pg (25.0-35.0); MEAN CORPUSCULAR HGB CONC 32.6 g/dl (31.0-37.0); MEAN PLATELET VOLUME 9.2 fl (7.0-11.0); MONO # 0.3 (0.1-0.6); MONO % 4.7 % (1.0-6.0); PLATELET COUNT 197 10^3/uL (120.0-450.0); RED CELL DISTRIBUTION WIDTH 16.3 % (11.5-14.5); WHITE BLOOD COUNT 6.6 10^3/ul (4.5-11.0)
[2016-12-14 07:44] LABS: ALB/GLOB RATIO 0.9 (1.1-1.8); BILIRUBIN,TOTAL 0.4 mg/dL (0.2-1.3); POTASSIUM 5.2 mmol/L (3.6-5.0)
[2016-12-14 08:01] LABS: CALCIUM 8.3 mg/dL (8.4-10.5)
[2016-12-14] MEDS: Insulin Reg-LOW-Coverage SC SCH ×4 (08:39→22:57)
[2016-12-14] MEDS: Morphine 30 mg SR Tab PO SCH ×2 (10:15→21:44)
--- NOTE | 2016-12-14 11:12 | CP.PCM.PN ---
<Timbo Hernandez - Last Filed: 12/14/16 11:08> Subjective - Date & Time of Evaluation Date of Evaluation: 12/14/16 Time of Evaluation: 11:08 - Subjective Subjective: 51 year old female patient seen at bedside today for left heel ulceration. She is seen resting comfortably in bed and AA0 x3. Dressing was c/d/i. She was seen without offloading boots. She reports mild pain to the left heel. She denies any acute events overnight. She denies n/v/sob/cp/chills or f but reports dizziness. Objective - Vital Signs/Intake and Output Vital Signs (last 24 hours): Temp Pulse Resp BP Pulse Ox 98.5 F 68 18 146/74 100 12/13/16 16:00 12/14/16 10:14 12/13/16 16:00 12/14/16 10:14 12/13/16 16:00 Intake and Output: 12/14/16 12/14/16 06:59 18:59 Intake Total 520 Balance 520 - Medications Medications: Current Medications Albuterol/Ipratropium (Duoneb 3 Mg/0.5 Mg (3 Ml) Ud) 3 ml IH [id number] PRN PRN Reason: Shortness of Breath Atorvastatin Calcium (Lipitor) 20 mg PO DIN [facility] Last Admin: 12/13/16 17:49 Dose: 20 mg Clopidogrel Bisulfate (Plavix) 75 mg PO DAILY [facility] Last Admin: 12/14/16 10:14 Dose: 75 mg Diphenhydramine HCl (Benadryl) 25 mg PO Q6 PRN PRN Reason: Itching / Pruritus Last Admin: 12/13/16 22:53 Dose: 25 mg Diphenhydramine HCl (Benadryl) 25 mg PO HS PRN PRN Reason: Insomnia Last Admin: 12/13/16 00:16 Dose: 25 mg Docusate Sodium (Colace) 100 mg PO BID [facility] Last Admin: 12/11/16 09:24 Dose: 100 mg Gabapentin (Neurontin) 300 mg PO TID [facility]I PRN Reason: Protocol Last Admin: 12/14/16 10:15 Dose: 300 mg Heparin Sodium (Porcine) (Heparin) 5,000 units SC Q12 MIKKI PRN Reason: Protocol Last Admin: 12/14/16 10:23 Dose: Not Given Hydralazine HCl (Apresoline) 10 mg IVP Q6 PRN PRN Reason: Systolic Blood Pressure Hydromorphone HCl (Dilaudid) 0.5 mg IVP Q4H PRN PRN Reason: Pain, severe (8-10) Last Admin: 12/14/16 05:38 Dose: 0.5 mg Piperacillin Sod/Tazobactam Sod (Zosyn 3.375 In Ns 100ml) 100 mls @ 200 mls/hr IVPB Q6 MIKKI PRN Reason: Protocol Stop: 12/27/16 12:01 Last Admin: 12/14/16 05:39 Dose: 200 mls/hr Sodium Chloride (Sodium Chloride 0.9%) 1,000 mls @ 100 mls/hr IV .Q10H [facility] Last Admin: 12/13/16 21:57 Dose: Not Given Insulin Detemir (Levemir) 20 unit SC HS [facility] Last Admin: 12/13/16 21:51 Dose: 20 unit Insulin Human Regular (Humulin R Low) 0 units SC ACHS [facility] PRN Reason: Protocol Last Admin: 12/14/16 08:39 Dose: 2 units Linezolid (Zyvox) 600 mg PO BID [facility] PRN Reason: Protocol Stop: 12/29/16 18:01 Last Admin: 12/13/16 17:49 Dose: 600 mg Lorazepam (Ativan) 0.5 mg PO TID PRN; Protocol PRN Reason: Anxiety Last Admin: 12/08/16 10:37 Dose: 0.5 mg Metoclopramide HCl (Reglan) 5 mg IVP Q6 PRN PRN Reason: Nausea/Vomiting Last Admin: 12/08/16 11:40 Dose: 5 mg Metoprolol Tartrate (Lopressor) 25 mg PO BID [facility] Last Admin: 12/14/16 10:14 Dose: 25 mg Morphine Sulfate (Morphine Extended Release Tab) 30 mg PO Q12 [facility] Last Admin: 12/14/16 10:15 Dose: 30 mg Olanzapine (Zyprexa Zydis) 5 mg PO HS [facility]KKI PRN Reason: Protocol Last Admin: 12/13/16 21:57 Dose: Not Given Ondansetron HCl (Zofran Inj) 4 mg IVP Q4 PRN PRN Reason: Nausea/Vomiting Pantoprazole Sodium (Protonix Ec Tab) 40 mg PO 0600 [facility] Last Admin: 12/14/16 05:39 Dose: 40 mg Polyethylene Glycol (Miralax) 17 gm PO DAILY PRN PRN Reason: Constipation Last Admin: 12/13/16 09:12 Dose: 17 gm Trazodone HCl (Desyrel) 50 mg PO HS [facility] Last Admin: 12/13/16 21:56 Dose: Not Given Ziprasidone (Geodon Inj) 20 mg IM Q6 PRN; Protocol PRN Reason: Agitation - Labs Labs: 12/14/16 07:00 12/14/16 07:00 PT 11.6 Seconds (9.9-11.8) 11/25/16 03:00 INR 1.07 (0.93-1.08) 11/25/16 03:00 APTT 24.2 Seconds (23.7-30.8) 11/25/16 03:00 - Constitutional Appears: Well, Non-toxic, No Acute Distress - Extremities Exam Additional comments: LLE exam: Vasc: DP & PT pulses are 1/4 bilaterally, temperature gradient WNL, DEVOPS < 3 seconds to digits x 5, no pedal edema noted Derm: there is a full thickness ulceration noted to the left heel measuring approximately 3.8x 3.5x0.4 cm with 100% granular base with no probe to bone noted, no purulence, no fluctuance, no drainage noted, (-) probe to bone Neuro: protective pedal sensation is grossly diminished Ortho:mild tenderness to palpation of the left heel - Neurological Exam Neurological Exam: Alert, Awake, Oriented x3 - Psychiatric Exam Psychiatric exam: Normal Affect, Normal Mood Assessment and Plan - Assessment and Plan (Free Text) Assessment: 51 year old female with unstageable ulceration to left heel with OM Plan: Patient seen and evaluated at bedside Discussed plan in detail with Dr. Hughes Chart, labs, vitals reviewed: afebrile, wbc 6.6 (wbc is 6.4 on 12/13/16) Ulceration cleansed with sterile water, petroleum gauze, ABD and kerlix applied to left heel. Educated on the importance of wearing offloading boot for left heel healing Offloading boot applied to left heel Pt is stable from podiatry standpoint to be D/C to [facility] for termite treater helper abx for + OM Patient to follow up with her surgeon for further wound treatment Podiatry will continue to follow patient while in house <Tyler Hughes - Last Filed: 12/16/16 11:50> Objective - Vital Signs/Intake and Output Vital Signs (last 24 hours): Temp Pulse Resp BP Pulse Ox 97.8 F 80 16 127/65 97 12/16/16 07:30 12/16/16 11:28 12/16/16 07:30 12/16/16 11:28 12/16/16 07:30 Intake and Output: 12/16/16 12/16/16 06:59 18:59 Intake Total 420 Balance 420 - Medications Medications: Current Medications Albuterol/Ipratropium (Duoneb 3 Mg/0.5 Mg (3 Ml) Ud) 3 ml IH [id number] PRN PRN Reason: Shortness of Breath Atorvastatin Calcium (Lipitor) 20 mg PO DIN [facility] Last Admin: 12/15/16 17:58 Dose: 20 mg Clopidogrel Bisulfate (Plavix) 75 mg PO DAILY [facility] Last Admin: 12/16/16 11:27 Dose: 75 mg Diphenhydramine HCl (Benadryl) 25 mg PO Q6 PRN PRN Reason: Itching / Pruritus Last Admin: 12/13/16 22:53 Dose: 25 mg Diphenhydramine HCl (Benadryl) 25 mg PO HS PRN PRN Reason: Insomnia Last Admin: 12/15/16 23:04 Dose: 25 mg Docusate Sodium (Colace) 100 mg PO BID [facility] Last Admin: 12/16/16 11:30 Dose: Not Given Gabapentin (Neurontin) 300 mg PO TID [facility] PRN Reason: Protocol Last Admin: 12/16/16 11:28 Dose: 300 mg Heparin Sodium (Porcine) (Heparin) 5,000 units SC Q12 [facility]I PRN Reason: Protocol Last Admin: 12/16/16 11:26 Dose: Not Given Hydralazine HCl (Apresoline) 10 mg IVP Q6 PRN PRN Reason: Systolic Blood Pressure Last Admin: 12/16/16 06:40 Dose: 10 mg Hydromorphone HCl (Dilaudid) 0.5 mg IVP Q4H PRN PRN Reason: Pain, severe (8-10) Last Admin: 12/16/16 08:32 Dose: 0.5 mg Piperacillin Sod/Tazobactam Sod (Zosyn 3.375 In Ns 100ml) 100 mls @ 200 mls/hr IVPB Q6 [facility] PRN Reason: Protocol Stop: 12/27/16 12:01 Last Admin: 12/16/16 11:25 Dose: 200 mls/hr Sodium Chloride (Sodium Chloride 0.9%) 1,000 mls @ 100 mls/hr IV .Q10H [facility] Last Admin: 12/16/16 11:29 Dose: Not Given Insulin Detemir (Levemir) 20 unit SC HS [facility] Last Admin: 12/15/16 21:58 Dose: 20 unit Insulin Human Regular (Humulin R Low) 0 units SC ACHS [facility] PRN Reason: Protocol Last Admin: 12/16/16 11:29 Dose: 2 units Linezolid (Zyvox) 600 mg PO BID [facility] PRN Reason: Protocol Stop: 12/29/16 18:01 Last Admin: 12/16/16 11:27 Dose: 600 mg Lorazepam (Ativan) 0.5 mg PO TID PRN; Protocol PRN Reason: Anxiety Last Admin: 12/08/16 10:37 Dose: 0.5 mg Metoclopramide HCl (Reglan) 5 mg IVP Q6 PRN PRN Reason: Nausea/Vomiting Last Admin: 12/08/16 11:40 Dose: 5 mg Metoprolol Tartrate (Lopressor) 25 mg PO BID [facility] Last Admin: 12/16/16 11:28 Dose: 25 mg Morphine Sulfate (Morphine Extended Release Tab) 30 mg PO Q12 [facility] Stop: 12/21/16 23:59 Last Admin: 12/16/16 11:27 Dose: 30 mg Olanzapine (Zyprexa Zydis) 5 mg PO [facility] PRN Reason: Protocol Last Admin: 12/15/16 22:01 Dose: Not Given Ondansetron HCl (Zofran Inj) 4 mg IVP Q4 PRN PRN Reason: Nausea/Vomiting Pantoprazole Sodium (Protonix Ec Tab) 40 mg PO 0600 [facility] Last Admin: 12/16/16 06:31 Dose: 40 mg Polyethylene Glycol (Miralax) 17 gm PO DAILY PRN PRN Reason: Constipation Last Admin: 12/13/16 09:12 Dose: 17 gm Trazodone HCl (Desyrel) 50 mg PO [facility] Last Admin: 12/15/16 22:00 Dose: Not Given Ziprasidone (Geodon Inj) 20 mg IM Q6 PRN; Protocol PRN Reason: Agitation - Labs Labs: 12/14/16 07:00 12/14/16 07:00 PT 11.6 Seconds (9.9-11.8) 11/25/16 03:00 INR 1.07 (0.93-1.08) 11/25/16 03:00 APTT 24.2 Seconds (23.7-30.8) 11/25/16 03:00 Attending/Attestation - Attestation I have personally seen and examined this patient.: Yes I have fully participated in the care of the patient.: Yes I have reviewed all pertinent clinical information, including history, physical exam and plan: Yes
--- NOTE | 2016-12-14 13:33 | PN ---
DATE: 12/14/2016 SUBJECTIVE: The patient is in bed in no acute distress, nontoxic. PHYSICAL EXAMINATION: VITAL SIGNS: Temperature is 98, blood pressure is 140/80 and respiratory rate of 16. HEENT: Unremarkable. NECK: Supple. LUNGS: Decreased breath sounds. HEART: Normal S1 and S2. ABDOMEN: Soft, nontender. LABORATORY DATA: Reveals a white count of 6.6, hemoglobin of 8, platelet of 194, BUN of 31, creatinine of 1.6. Urinalysis is noted. Microbiology is noted. ASSESSMENT AND PLAN: A 51-year-old female with a left foot osteomyelitis and Staphylococcus aureus, it is methicillin-resistant Staphylococcus aureus and Proteus and on Zyvox and Zosyn in a patient with status post left PICC line placement, dyslipidemia, hypertension, history of cholecystitis and chronic renal failure, history of uterine cancer, depression and deep venous thrombosis. We will need four to six weeks of antibiotics and pending weekly CBC, , sedimentation rate, C-reactive protein. Review of orders. Zosyn and Zyvox are both active. Chandana Acevedo MD
--- NOTE | 2016-12-14 14:16 | CP.PCM.PN ---
<TRES ARTHUR - Last Filed: 12/14/16 15:48> Subjective - Date & Time of Evaluation Date of Evaluation: 12/14/16 Time of Evaluation: 10:00 - Subjective Subjective: Medicine Progress Note: Pt seen and assessed at bedside. Pt had no complaints this morning and was resting comfortably prior to exam. She reports previous complaint of diarrhea has resolved. Pt denied headache, fever, dizziness, shortness of breath, chest pain, N/V, abdominal pain diarrhea or constipation. Objective - Vital Signs/Intake and Output Vital Signs (last 24 hours): Temp Pulse Resp BP Pulse Ox 98.5 F 68 18 146/74 100 12/13/16 16:00 12/14/16 10:14 12/13/16 16:00 12/14/16 10:14 12/13/16 16:00 Intake and Output: 12/14/16 12/14/16 06:59 18:59 Intake Total 520 Balance 520 - Medications Medications: Current Medications Albuterol/Ipratropium (Duoneb 3 Mg/0.5 Mg (3 Ml) Ud) 3 ml IH [id number] PRN PRN Reason: Shortness of Breath Atorvastatin Calcium (Lipitor) 20 mg PO DIN [facility] Last Admin: 12/13/16 17:49 Dose: 20 mg Clopidogrel Bisulfate (Plavix) 75 mg PO DAILY [facility] Last Admin: 12/14/16 10:14 Dose: 75 mg Diphenhydramine HCl (Benadryl) 25 mg PO Q6 PRN PRN Reason: Itching / Pruritus Last Admin: 12/13/16 22:53 Dose: 25 mg Diphenhydramine HCl (Benadryl) 25 mg PO HS PRN PRN Reason: Insomnia Last Admin: 12/13/16 00:16 Dose: 25 mg Docusate Sodium (Colace) 100 mg PO BID [facility] Last Admin: 12/11/16 09:24 Dose: 100 mg Gabapentin (Neurontin) 300 mg PO TID MIKKI PRN Reason: Protocol Last Admin: 12/14/16 10:15 Dose: 300 mg Heparin Sodium (Porcine) (Heparin) 5,000 units SC Q12 MIKKI PRN Reason: Protocol Last Admin: 12/14/16 10:23 Dose: Not Given Hydralazine HCl (Apresoline) 10 mg IVP Q6 PRN PRN Reason: Systolic Blood Pressure Hydromorphone HCl (Dilaudid) 0.5 mg IVP Q4H PRN PRN Reason: Pain, severe (8-10) Last Admin: 12/14/16 12:52 Dose: 0.5 mg Piperacillin Sod/Tazobactam Sod (Zosyn 3.375 In Ns 100ml) 100 mls @ 200 mls/hr IVPB Q6 MIKKI PRN Reason: Protocol Stop: 12/27/16 12:01 Last Admin: 12/14/16 13:00 Dose: 200 mls/hr Sodium Chloride (Sodium Chloride 0.9%) 1,000 mls @ 100 mls/hr IV .Q10H [facility] Last Admin: 12/13/16 21:57 Dose: Not Given Insulin Detemir (Levemir) 20 unit SC HS [facility] Last Admin: 12/13/16 21:51 Dose: 20 unit Insulin Human Regular (Humulin R Low) 0 units SC ACHS MIKKI PRN Reason: Protocol Last Admin: 12/14/16 08:39 Dose: 2 units Linezolid (Zyvox) 600 mg PO BID [facility] PRN Reason: Protocol Stop: 12/29/16 18:01 Last Admin: 12/13/16 17:49 Dose: 600 mg Lorazepam (Ativan) 0.5 mg PO TID PRN; Protocol PRN Reason: Anxiety Last Admin: 12/08/16 10:37 Dose: 0.5 mg Metoclopramide HCl (Reglan) 5 mg IVP Q6 PRN PRN Reason: Nausea/Vomiting Last Admin: 12/08/16 11:40 Dose: 5 mg Metoprolol Tartrate (Lopressor) 25 mg PO BID [facility] Last Admin: 12/14/16 10:14 Dose: 25 mg Morphine Sulfate (Morphine Extended Release Tab) 30 mg PO Q12 [facility] Last Admin: 12/14/16 10:15 Dose: 30 mg Olanzapine (Zyprexa Zydis) 5 mg PO HS [facility] PRN Reason: Protocol Last Admin: 12/13/16 21:57 Dose: Not Given Ondansetron HCl (Zofran Inj) 4 mg IVP Q4 PRN PRN Reason: Nausea/Vomiting Pantoprazole Sodium (Protonix Ec Tab) 40 mg PO 0600 [facility] Last Admin: 12/14/16 05:39 Dose: 40 mg Polyethylene Glycol (Miralax) 17 gm PO DAILY PRN PRN Reason: Constipation Last Admin: 12/13/16 09:12 Dose: 17 gm Trazodone HCl (Desyrel) 50 mg PO HS MIKKI Last Admin: 12/13/16 21:56 Dose: Not Given Ziprasidone (Geodon Inj) 20 mg IM Q6 PRN; Protocol PRN Reason: Agitation - Labs Labs: 12/14/16 07:00 12/14/16 07:00 PT 11.6 Seconds (9.9-11.8) 11/25/16 03:00 INR 1.07 (0.93-1.08) 11/25/16 03:00 APTT 24.2 Seconds (23.7-30.8) 11/25/16 03:00 - Constitutional Appears: No Acute Distress - Head Exam Head Exam: NORMAL INSPECTION - Eye Exam Eye Exam: EOMI, Normal appearance - ENT Exam ENT Exam: Mucous Membranes Moist, Normal Exam - Neck Exam Neck Exam: Full ROM - Respiratory Exam Respiratory Exam: Clear to Ausculation Bilateral, NORMAL BREATHING PATTERN. absent: Rales, Rhonchi, Wheezes, Respiratory Distress - Cardiovascular Exam Cardiovascular Exam: REGULAR RHYTHM, RRR, +S1, +S2. absent: Murmur - GI/Abdominal Exam GI & Abdominal Exam: Normal Bowel Sounds. absent: Distended, Firm, Tenderness - Extremities Exam Extremities Exam: absent: Calf Tenderness, Pedal Edema - Neurological Exam Neurological Exam: Alert, Awake, Oriented x3 - Psychiatric Exam Psychiatric exam: Normal Affect, Normal Mood - Skin Skin Exam: Dry, Intact, Normal Color, Warm - Additional Findings Additional findings: L heel wound dressing clean dry and intact Assessment and Plan - Assessment and Plan (Free Text) Assessment: Ms. Kerr is a 51 yo female with a past medical history of CO, hyperlipidemia, diabetes, HTN, CKD, asthma, DVT, uterine cancer, lung cancer and thromboembolic disease S/P left heel osteomyelitis debridement who was admitted for evaluation and treatment of chest pain and left heel pain. Plan: 1. Osteomyelitis of L heel -cont with Zosyn and Zyvox (week 2), per ID -pain control with PO morphine and IV dilaudid -wound cultures showed MRSA and amikacin sensitive proteus mirabilis -4-6 weeks of Zosyn and 3-4 weeks of Zyvox with weekly ESR, CRP, CBC, CMP. Will consider PO antibiotics if these trend downward, per ID -podiatry and wound care on board, all recommendations appreciated -offloading boot to L foot, per podiatry -cont PT/OT; stating [facility] placement on DC -SW/case management working on acute care placement; discharge from hospital delayed due to placement issues 2. Chronic Pancreatitis -pt currently refusing NS -cont with humilin SSI and levemir -pain control with morphine and dilaudid -heart healthy diet with low fat -will continue to monitor 3. Delirium -psychiatry following, all recommendations appreciated -psychiatry notes improvement; medicine team also notes objective improvement in communication -cont PRN Geodon, PRN Risperidone and PRN Ativan -zyprexa zydis 5mg HS, per psych 4. Vision Changes -optho consulted and agreed to see as outpatient -will assist pt in scheduling upon d/c -will cont to monitor 5. Constipation - PRN miralax - monitor diarrhea 6. Thyroid Nodule -TSH wnl -asymptomatic at this time -will continue to monitor 7. Anemia -Iron studies within normal limits -B12 and Folate WNL -continuing to monitor with daily CBC's 8. Asthma -Duoneb q4 PRN 9. History of Medication Noncompliance - patient noticeably more compliant with medication therapy; patient refused IVF and zyprexa on 12/14 - will continue to educate patient on the importance of medication compliance with all prescribed medications when appropriate 10. History of Heart, Lung, and Uterine Cancer - self reported by patient; no written record of illness at [facility] or [facility] - no written record or means of attaining written record were provided by patient despite multiple inquiries - noncontrast CT of chest/abdomen/ pelvis showed no acute disease processes in heart, lung or uterus - will continue to monitor clinically and consult hem/onc when clinically appropriate 11. GI/DVT prophylaxis -protonix/ SCD Patient seen and case discussed with attending physician, Dr. Manuel. <Jorge Manuel - Last Filed: 12/14/16 15:59> Objective - Vital Signs/Intake and Output Vital Signs (last 24 hours): Temp Pulse Resp BP Pulse Ox 98.5 F 68 18 146/74 100 12/13/16 16:00 12/14/16 10:14 12/13/16 16:00 12/14/16 10:14 12/13/16 16:00 Intake and Output: 12/14/16 12/14/16 06:59 18:59 Intake Total 520 480 Balance 520 480 - Medications Medications: Current Medications Albuterol/Ipratropium (Duoneb 3 Mg/0.5 Mg (3 Ml) Ud) 3 ml IH [id number] PRN PRN Reason: Shortness of Breath Atorvastatin Calcium (Lipitor) 20 mg PO DIN [facility] Last Admin: 12/13/16 17:49 Dose: 20 mg Clopidogrel Bisulfate (Plavix) 75 mg PO DAILY [facility] Last Admin: 12/14/16 10:14 Dose: 75 mg Diphenhydramine HCl (Benadryl) 25 mg PO Q6 PRN PRN Reason: Itching / Pruritus Last Admin: 12/13/16 22:53 Dose: 25 mg Diphenhydramine HCl (Benadryl) 25 mg PO HS PRN PRN Reason: Insomnia Last Admin: 12/13/16 00:16 Dose: 25 mg Docusate Sodium (Colace) 100 mg PO BID [facility] Last Admin: 12/11/16 09:24 Dose: 100 mg Gabapentin (Neurontin) 300 mg PO TID MIKKI PRN Reason: Protocol Last Admin: 12/14/16 14:43 Dose: 300 mg Heparin Sodium (Porcine) (Heparin) 5,000 units SC Q12 MIKKI PRN Reason: Protocol Last Admin: 12/14/16 10:23 Dose: Not Given Hydralazine HCl (Apresoline) 10 mg IVP Q6 PRN PRN Reason: Systolic Blood Pressure Hydromorphone HCl (Dilaudid) 0.5 mg IVP Q4H PRN PRN Reason: Pain, severe (8-10) Last Admin: 12/14/16 12:52 Dose: 0.5 mg Piperacillin Sod/Tazobactam Sod (Zosyn 3.375 In Ns 100ml) 100 mls @ 200 mls/hr IVPB Q6 MIKKI PRN Reason: Protocol Stop: 12/27/16 12:01 Last Admin: 12/14/16 13:00 Dose: 200 mls/hr Sodium Chloride (Sodium Chloride 0.9%) 1,000 mls @ 100 mls/hr IV .Q10H [facility] Last Admin: 12/13/16 21:57 Dose: Not Given Insulin Detemir (Levemir) 20 unit SC HS [facility] Last Admin: 12/13/16 21:51 Dose: 20 unit Insulin Human Regular (Humulin R Low) 0 units SC [facility] PRN Reason: Protocol Last Admin: 12/14/16 14:44 Dose: Not Given Linezolid (Zyvox) 600 mg PO BID [facility] PRN Reason: Protocol Stop: 12/29/16 18:01 Last Admin: 12/14/16 10:14 Dose: 600 mg Lorazepam (Ativan) 0.5 mg PO TID PRN; Protocol PRN Reason: Anxiety Last Admin: 12/08/16 10:37 Dose: 0.5 mg Metoclopramide HCl (Reglan) 5 mg IVP Q6 PRN PRN Reason: Nausea/Vomiting Last Admin: 12/08/16 11:40 Dose: 5 mg Metoprolol Tartrate (Lopressor) 25 mg PO BID [facility] Last Admin: 12/14/16 10:14 Dose: 25 mg Morphine Sulfate (Morphine Extended Release Tab) 30 mg PO Q12 [facility] Last Admin: 12/14/16 10:15 Dose: 30 mg Olanzapine (Zyprexa Zydis) 5 mg PO HS [facility] PRN Reason: Protocol Last Admin: 12/13/16 21:57 Dose: Not Given Ondansetron HCl (Zofran Inj) 4 mg IVP Q4 PRN PRN Reason: Nausea/Vomiting Pantoprazole Sodium (Protonix Ec Tab) 40 mg PO 0600 [facility] Last Admin: 12/14/16 05:39 Dose: 40 mg Polyethylene Glycol (Miralax) 17 gm PO DAILY PRN PRN Reason: Constipation Last Admin: 12/13/16 09:12 Dose: 17 gm Trazodone HCl (Desyrel) 50 mg PO HS [facility] Last Admin: 12/13/16 21:56 Dose: Not Given Ziprasidone (Geodon Inj) 20 mg IM Q6 PRN; Protocol PRN Reason: Agitation - Labs Labs: 12/14/16 07:00 12/14/16 07:00 PT 11.6 Seconds (9.9-11.8) 11/25/16 03:00 INR 1.07 (0.93-1.08) 11/25/16 03:00 APTT 24.2 Seconds (23.7-30.8) 11/25/16 03:00 Attending/Attestation - Attestation I have personally seen and examined this patient.: Yes I have fully participated in the care of the patient.: Yes I have reviewed all pertinent clinical information, including history, physical exam and plan: Yes Notes (Text): 12/14/16 15:57 Attending note; Patient seen and examined with resident. Patient is alert and awake and calm today. Patient is a 51 year old female with past medical history of CO, diabetes, hypertension, chronic heel ulcer and chronic OM who was recently discharged to [facility] on iv antibiotics who presented with complaint of chest pain.workup is negative. Currently on IV zosyn. Podiatry follow-up appreciated. Dressing changed. Off loading boots applied. Patient also has CKD and anemia. She is on levemir and insulin ss for diabetes. dosage increased. Psychiatric reevaluation appreciated. Again she is encouraged to take her medications. Risks of medication noncompliance explained to the patient. awaiting rehab placement.
[2016-12-14] MEDS: OLANZapine 5 mg Disintegrating Tab PO SCH (21:52)
[2016-12-14] MEDS: Insulin Detemir 100 units/ml Vial (Levemir) SC SCH (22:55)
[2016-12-15] MEDS: HYDROmorphone 0.5 mg/0.5 ml ISec IVP PRN ×5 (03:09→20:27)
[2016-12-15] MEDS: Sodium Chloride 0.9% 1,000 ML IV SCH (04:48)
[2016-12-15] MEDS: Piperacillin/Tazobact 3.375 gm 100 ML IVPB SCH ×4 (05:54→23:05)
[2016-12-15] MEDS: Pantoprazole 40 mg EC Tab PO SCH (05:55)
[2016-12-15] MEDS: Insulin Reg-LOW-Coverage SC SCH ×4 (08:57→22:00)
--- NOTE | 2016-12-15 11:22 | CP.PCM.PN ---
Subjective - Date & Time of Evaluation Date of Evaluation: 12/15/16 Time of Evaluation: 10:40 - Subjective Subjective: Comfortable, afebrile, not in distress. Objective - Vital Signs/Intake and Output Vital Signs (last 24 hours): Temp Pulse Resp BP Pulse Ox 97.8 F 70 18 168/84 H 98 12/14/16 16:18 12/14/16 16:18 12/14/16 16:18 12/14/16 16:18 12/14/16 16:18 Intake and Output: 12/15/16 12/15/16 06:59 18:59 Intake Total 1240 Balance 1240 - Medications Medications: Current Medications Albuterol/Ipratropium (Duoneb 3 Mg/0.5 Mg (3 Ml) Ud) 3 ml IH [id number] PRN PRN Reason: Shortness of Breath Atorvastatin Calcium (Lipitor) 20 mg PO DIN [facility] Last Admin: 12/14/16 18:14 Dose: 20 mg Clopidogrel Bisulfate (Plavix) 75 mg PO DAILY [facility] Last Admin: 12/14/16 10:14 Dose: 75 mg Diphenhydramine HCl (Benadryl) 25 mg PO Q6 PRN PRN Reason: Itching / Pruritus Last Admin: 12/13/16 22:53 Dose: 25 mg Diphenhydramine HCl (Benadryl) 25 mg PO HS PRN PRN Reason: Insomnia Last Admin: 12/14/16 22:50 Dose: 25 mg Docusate Sodium (Colace) 100 mg PO BID [facility] Last Admin: 12/11/16 09:24 Dose: 100 mg Gabapentin (Neurontin) 300 mg PO TID [facility] PRN Reason: Protocol Last Admin: 12/14/16 18:13 Dose: 300 mg Heparin Sodium (Porcine) (Heparin) 5,000 units SC Q12 MIKKI PRN Reason: Protocol Last Admin: 12/14/16 21:51 Dose: Not Given Hydralazine HCl (Apresoline) 10 mg IVP Q6 PRN PRN Reason: Systolic Blood Pressure Hydromorphone HCl (Dilaudid) 0.5 mg IVP Q4H PRN PRN Reason: Pain, severe (8-10) Last Admin: 12/15/16 07:10 Dose: 0.5 mg Piperacillin Sod/Tazobactam Sod (Zosyn 3.375 In Ns 100ml) 100 mls @ 200 mls/hr IVPB Q6 MIKKI PRN Reason: Protocol Stop: 12/27/16 12:01 Last Admin: 12/15/16 05:54 Dose: 200 mls/hr Sodium Chloride (Sodium Chloride 0.9%) 1,000 mls @ 100 mls/hr IV .Q10H [facility] Last Admin: 12/15/16 04:48 Dose: Not Given Insulin Detemir (Levemir) 20 unit SC HS [facility] Last Admin: 12/14/16 22:55 Dose: 20 unit Insulin Human Regular (Humulin R Low) 0 units SC ACHS [facility] PRN Reason: Protocol Last Admin: 12/15/16 08:57 Dose: 3 units Linezolid (Zyvox) 600 mg PO BID [facility] PRN Reason: Protocol Stop: 12/29/16 18:01 Last Admin: 12/14/16 18:14 Dose: 600 mg Lorazepam (Ativan) 0.5 mg PO TID PRN; Protocol PRN Reason: Anxiety Last Admin: 12/08/16 10:37 Dose: 0.5 mg Metoclopramide HCl (Reglan) 5 mg IVP Q6 PRN PRN Reason: Nausea/Vomiting Last Admin: 12/08/16 11:40 Dose: 5 mg Metoprolol Tartrate (Lopressor) 25 mg PO BID [facility] Last Admin: 12/14/16 18:14 Dose: 25 mg Olanzapine (Zyprexa Zydis) 5 mg PO [facility] PRN Reason: Protocol Last Admin: 12/14/16 21:52 Dose: Not Given Ondansetron HCl (Zofran Inj) 4 mg IVP Q4 PRN PRN Reason: Nausea/Vomiting Pantoprazole Sodium (Protonix Ec Tab) 40 mg PO 0600 [facility] Last Admin: 12/15/16 05:55 Dose: 40 mg Polyethylene Glycol (Miralax) 17 gm PO DAILY PRN PRN Reason: Constipation Last Admin: 12/13/16 09:12 Dose: 17 gm Trazodone HCl (Desyrel) 50 mg PO HS [facility] Last Admin: 12/14/16 22:00 Dose: Not Given Ziprasidone (Geodon Inj) 20 mg IM Q6 PRN; Protocol PRN Reason: Agitation - Labs Labs: 12/14/16 07:00 12/14/16 07:00 PT 11.6 Seconds (9.9-11.8) 11/25/16 03:00 INR 1.07 (0.93-1.08) 11/25/16 03:00 APTT 24.2 Seconds (23.7-30.8) 11/25/16 03:00 - Constitutional Appears: Non-toxic, No Acute Distress - Head Exam Head Exam: NORMAL INSPECTION - ENT Exam ENT Exam: Mucous Membranes Moist - Neck Exam Neck Exam: absent: Meningismus - Respiratory Exam Respiratory Exam: Decreased Breath Sounds - Cardiovascular Exam Cardiovascular Exam: +S1, +S2 - GI/Abdominal Exam GI & Abdominal Exam: Soft. absent: Tenderness Assessment and Plan - Assessment and Plan (Free Text) Plan: Assessment Probable left foot osteomyelitis (was on antibiotics prior to admission), growing staph aureus and multidrug resistant Proteus only sensitive to Zosyn, and MRSA S/P left PICC line placement dyslipidemia DM HTN history of cholecystitis chronic renal failure history of uterine cancer CAD history of depression history of DVT Plan continue Zosyn and Zyvox (day 19); discussed with Dr. Brady - patient has exposed bone will follow clinically while the patient is in the hospital; patient should have 4-6 weeks of Zosyn and Zyvox with weekly ESR, CRP, CBC, CMP
--- NOTE | 2016-12-15 13:05 | CP.PCM.PN ---
<TRES ARTHUR - Last Filed: 12/15/16 13:02> Subjective - Date & Time of Evaluation Date of Evaluation: 12/15/16 Time of Evaluation: 10:00 - Subjective Subjective: Medicine Progress Note: Pt seen and assessed at bedside. Pt had no complaints this morning and was pleasant during examination. Pt denied headache, fever, dizziness, shortness of breath, chest pain, N/V, abdominal pain diarrhea or constipation. Objective - Vital Signs/Intake and Output Vital Signs (last 24 hours): Temp Pulse Resp BP Pulse Ox 97.8 F 75 18 160/98 H 98 12/14/16 16:18 12/15/16 11:36 12/14/16 16:18 12/15/16 11:36 12/14/16 16:18 Intake and Output: 12/15/16 12/15/16 06:59 18:59 Intake Total 1240 Balance 1240 - Medications Medications: Current Medications Albuterol/Ipratropium (Duoneb 3 Mg/0.5 Mg (3 Ml) Ud) 3 ml IH [id number] PRN PRN Reason: Shortness of Breath Atorvastatin Calcium (Lipitor) 20 mg PO DIN [facility] Last Admin: 12/14/16 18:14 Dose: 20 mg Clopidogrel Bisulfate (Plavix) 75 mg PO DAILY [facility] Last Admin: 12/15/16 11:37 Dose: 75 mg Diphenhydramine HCl (Benadryl) 25 mg PO Q6 PRN PRN Reason: Itching / Pruritus Last Admin: 12/13/16 22:53 Dose: 25 mg Diphenhydramine HCl (Benadryl) 25 mg PO HS PRN PRN Reason: Insomnia Last Admin: 12/14/16 22:50 Dose: 25 mg Docusate Sodium (Colace) 100 mg PO BID [facility] Last Admin: 12/15/16 11:47 Dose: Not Given Gabapentin (Neurontin) 300 mg PO TID [facility] PRN Reason: Protocol Last Admin: 12/15/16 11:36 Dose: 300 mg Heparin Sodium (Porcine) (Heparin) 5,000 units SC Q12 [facility] PRN Reason: Protocol Last Admin: 12/15/16 11:48 Dose: Not Given Hydralazine HCl (Apresoline) 10 mg IVP Q6 PRN PRN Reason: Systolic Blood Pressure Hydromorphone HCl (Dilaudid) 0.5 mg IVP Q4H PRN PRN Reason: Pain, severe (8-10) Last Admin: 12/15/16 11:33 Dose: 0.5 mg Piperacillin Sod/Tazobactam Sod (Zosyn 3.375 In Ns 100ml) 100 mls @ 200 mls/hr IVPB Q6 [facility] PRN Reason: Protocol Stop: 12/27/16 12:01 Last Admin: 12/15/16 11:36 Dose: 200 mls/hr Sodium Chloride (Sodium Chloride 0.9%) 1,000 mls @ 100 mls/hr IV .Q10H [facility] [place] Last Admin: 12/15/16 04:48 Dose: Not Given Insulin Detemir (Levemir) 20 unit SC HS [facility] Last Admin: 12/14/16 22:55 Dose: 20 unit Insulin Human Regular (Humulin R Low) 0 units SC ACHS [facility] PRN Reason: Protocol Last Admin: 12/15/16 08:57 Dose: 3 units Linezolid (Zyvox) 600 mg PO BID [facility] PRN Reason: Protocol Stop: 12/29/16 18:01 Last Admin: 12/15/16 11:35 Dose: 600 mg Lorazepam (Ativan) 0.5 mg PO TID PRN; Protocol PRN Reason: Anxiety Last Admin: 12/08/16 10:37 Dose: 0.5 mg Metoclopramide HCl (Reglan) 5 mg IVP Q6 PRN PRN Reason: Nausea/Vomiting Last Admin: 12/08/16 11:40 Dose: 5 mg Metoprolol Tartrate (Lopressor) 25 mg PO BID [facility] [place] Last Admin: 12/15/16 11:36 Dose: 25 mg Olanzapine (Zyprexa Zydis) 5 mg PO [facility] PRN Reason: Protocol Last Admin: 12/14/16 21:52 Dose: Not Given Ondansetron HCl (Zofran Inj) 4 mg IVP Q4 PRN PRN Reason: Nausea/Vomiting Pantoprazole Sodium (Protonix Ec Tab) 40 mg PO 0600 [facility] Last Admin: 12/15/16 05:55 Dose: 40 mg Polyethylene Glycol (Miralax) 17 gm PO DAILY PRN PRN Reason: Constipation Last Admin: 12/13/16 09:12 Dose: 17 gm Trazodone HCl (Desyrel) 50 mg PO HS [facility] Last Admin: 12/14/16 22:00 Dose: Not Given Ziprasidone (Geodon Inj) 20 mg IM Q6 PRN; Protocol PRN Reason: Agitation - Labs Labs: 12/14/16 07:00 12/14/16 07:00 PT 11.6 Seconds (9.9-11.8) 11/25/16 03:00 INR 1.07 (0.93-1.08) 11/25/16 03:00 APTT 24.2 Seconds (23.7-30.8) 11/25/16 03:00 - Constitutional Appears: No Acute Distress - Head Exam Head Exam: NORMAL INSPECTION, NORMOCEPHALIC - Eye Exam Eye Exam: EOMI, Normal appearance - ENT Exam ENT Exam: Mucous Membranes Moist, Normal Exam - Neck Exam Neck Exam: Full ROM - Respiratory Exam Respiratory Exam: Clear to Ausculation Bilateral, NORMAL BREATHING PATTERN. absent: Rales, Rhonchi, Wheezes, Respiratory Distress - Cardiovascular Exam Cardiovascular Exam: REGULAR RHYTHM, +S1, +S2. absent: Murmur - GI/Abdominal Exam GI & Abdominal Exam: Normal Bowel Sounds. absent: Distended, Firm, Tenderness - Extremities Exam Extremities Exam: absent: Calf Tenderness, Pedal Edema - Neurological Exam Neurological Exam: Alert, Awake, Oriented x3 - Psychiatric Exam Psychiatric exam: Normal Affect, Normal Mood - Skin Skin Exam: Dry, Intact, Normal Color, Warm - Additional Findings Additional findings: L heel wound dressing clean dry and intact Assessment and Plan - Assessment and Plan (Free Text) Assessment: Ms. Kerr is a 51 yo female with a past medical history of CO, hyperlipidemia, diabetes, HTN, CKD, asthma, DVT, uterine cancer, lung cancer and thromboembolic disease S/P left heel osteomyelitis debridement who was admitted for evaluation and treatment of chest pain and left heel pain. Plan: 1. Osteomyelitis of L Calcaneus -ID consulted, all recommendations appreciated -podiatry and wound care on board, all recommendations appreciated -wound cultures showed MRSA and amikacin sensitive proteus mirabilis -cont with Zosyn and Zyvox (Day 19), per ID -4-6 weeks of Zosyn and 3-4 weeks of Zyvox with weekly ESR, CRP, CBC, CMP. Will consider PO antibiotics if these trend downward, per ID -pain control with PO morphine and IV dilaudid; no complaints of break through pain to medicine team -offloading boot to L foot, per podiatry -cont PT/OT who suggest [facility] placement upon DC -SW/case management working on acute care placement; discharge from hospital delayed due to placement issues 2. Chronic Pancreatitis -recommended IVF -cont with humilin SSI and levemir -pain control with morphine and dilaudid -heart healthy diet with low fat -will continue to monitor 3. Delirium -psychiatry following, all recommendations appreciated -psychiatry notes improvement; medicine team also notes objective improvement in goal directed communication with no emotional lability -cont PRN Geodon, PRN Risperidone and PRN Ativan -zyprexa zydis 5mg HS, per psych 4. Vision Changes -optho consulted and agreed to see as outpatient -will assist pt in scheduling upon d/c -will cont to monitor 5. Constipation - PRN miralax - will cont to monitor for diarrhea 6. Thyroid Nodule -TSH wnl -asymptomatic at this time -will continue to monitor 7. Anemia -Iron studies within normal limits -B12 and Folate WNL -continuing to monitor with daily CBC's 8. Asthma -Duoneb q4 PRN 9. History of Medication Noncompliance - patient noticeably more compliant with medication therapy as of late - will continue to educate patient on the importance of medication compliance with all prescribed medications whenever appropriate 10. History of Heart, Lung, and Uterine Cancer - self reported by patient; no written record of illness at [facility] or - noncontrast CT of chest/abdomen/ pelvis showed no acute disease processes in heart, lung or uterus - will continue to monitor clinically and consult hem/onc when clinically appropriate 11. GI/DVT prophylaxis -protonix/ SCD Patient seen and case discussed with attending physician, Dr. Manuel. <Jorge Manuel - Last Filed: 12/15/16 14:45> Objective - Vital Signs/Intake and Output Vital Signs (last 24 hours): Temp Pulse Resp BP Pulse Ox 97.8 F 75 18 160/98 H 98 12/14/16 16:18 12/15/16 11:36 12/14/16 16:18 12/15/16 11:36 12/14/16 16:18 Intake and Output: 12/15/16 12/15/16 06:59 18:59 Intake Total 1240 Balance 1240 - Medications Medications: Current Medications Albuterol/Ipratropium (Duoneb 3 Mg/0.5 Mg (3 Ml) Ud) 3 ml IH [id number] PRN PRN Reason: Shortness of Breath Atorvastatin Calcium (Lipitor) 20 mg PO DIN [facility] Last Admin: 12/14/16 18:14 Dose: 20 mg Clopidogrel Bisulfate (Plavix) 75 mg PO DAILY [facility] Last Admin: 12/15/16 11:37 Dose: 75 mg Diphenhydramine HCl (Benadryl) 25 mg PO Q6 PRN PRN Reason: Itching / Pruritus Last Admin: 12/13/16 22:53 Dose: 25 mg Diphenhydramine HCl (Benadryl) 25 mg PO HS PRN PRN Reason: Insomnia Last Admin: 12/14/16 22:50 Dose: 25 mg Docusate Sodium (Colace) 100 mg PO BID [facility] Last Admin: 12/15/16 11:47 Dose: Not Given Gabapentin (Neurontin) 300 mg PO TID [facility] [place] PRN Reason: Protocol Last Admin: 12/15/16 13:55 Dose: 300 mg Heparin Sodium (Porcine) (Heparin) 5,000 units SC Q12 [facility] PRN Reason: Protocol Last Admin: 12/15/16 11:48 Dose: Not Given Hydralazine HCl (Apresoline) 10 mg IVP Q6 PRN PRN Reason: Systolic Blood Pressure Hydromorphone HCl (Dilaudid) 0.5 mg IVP Q4H PRN PRN Reason: Pain, severe (8-10) Last Admin: 12/15/16 11:33 Dose: 0.5 mg Piperacillin Sod/Tazobactam Sod (Zosyn 3.375 In Ns 100ml) 100 mls @ 200 mls/hr IVPB Q6 [facility] PRN Reason: Protocol Stop: 12/27/16 12:01 Last Admin: 12/15/16 11:36 Dose: 200 mls/hr Sodium Chloride (Sodium Chloride 0.9%) 1,000 mls @ 100 mls/hr IV .Q10H [facility] Last Admin: 12/15/16 04:48 Dose: Not Given Insulin Detemir (Levemir) 20 unit SC HS [facility] Last Admin: 12/14/16 22:55 Dose: 20 unit Insulin Human Regular (Humulin R Low) 0 units SC ACHS [facility] PRN Reason: Protocol Last Admin: 12/15/16 13:07 Dose: 1 units Linezolid (Zyvox) 600 mg PO BID [facility] [place] PRN Reason: Protocol Stop: 12/29/16 18:01 Last Admin: 12/15/16 11:35 Dose: 600 mg Lorazepam (Ativan) 0.5 mg PO TID PRN; Protocol PRN Reason: Anxiety Last Admin: 12/08/16 10:37 Dose: 0.5 mg Metoclopramide HCl (Reglan) 5 mg IVP Q6 PRN PRN Reason: Nausea/Vomiting Last Admin: 12/08/16 11:40 Dose: 5 mg Metoprolol Tartrate (Lopressor) 25 mg PO BID [facility] Last Admin: 12/15/16 11:36 Dose: 25 mg Morphine Sulfate (Morphine Extended Release Tab) 30 mg PO Q12 [facility] Stop: 12/21/16 23:59 Last Admin: 12/15/16 14:33 Dose: 30 mg Olanzapine (Zyprexa Zydis) 5 mg PO HS [facility] PRN Reason: Protocol Last Admin: 12/14/16 21:52 Dose: Not Given Ondansetron HCl (Zofran Inj) 4 mg IVP Q4 PRN PRN Reason: Nausea/Vomiting Pantoprazole Sodium (Protonix Ec Tab) 40 mg PO 0600 [facility] Last Admin: 12/15/16 05:55 Dose: 40 mg Polyethylene Glycol (Miralax) 17 gm PO DAILY PRN PRN Reason: Constipation Last Admin: 12/13/16 09:12 Dose: 17 gm Trazodone HCl (Desyrel) 50 mg PO HS [facility] Last Admin: 12/14/16 22:00 Dose: Not Given Ziprasidone (Geodon Inj) 20 mg IM Q6 PRN; Protocol PRN Reason: Agitation - Labs Labs: 12/14/16 07:00 12/14/16 07:00 PT 11.6 Seconds (9.9-11.8) 11/25/16 03:00 INR 1.07 (0.93-1.08) 11/25/16 03:00 APTT 24.2 Seconds (23.7-30.8) 11/25/16 03:00 Attending/Attestation - Attestation I have personally seen and examined this patient.: Yes I have fully participated in the care of the patient.: Yes I have reviewed all pertinent clinical information, including history, physical exam and plan: Yes Notes (Text): 12/15/16 14:43 Attending note; Patient seen and examined with resident. Patient is alert and awake and calm today. Getting IV antibiotics as prescribed. Patient is a 51 year old female with past medical history of CO, diabetes, hypertension, chronic heel ulcer and chronic OM who was recently discharged to [facility] on iv antibiotics who presented with complaint of chest pain.workup is negative. Currently on IV zosyn and zyvox for Left heel osteomyelitis. Podiatry follow-up appreciated. Dressing changed. Off loading boots applied. Patient also has CKD and anemia. She is on levemir and insulin ss for diabetes. Physical therapy evaluation appreciated. Recommending subacute rehabilitation. Currently patient is alert, awake and oriented. Participating in medical treatment and physical therapy. Case discussed with social media senior associate in detail for discharge planning. awaiting rehab placement.
[2016-12-15] MEDS: Morphine 30 mg SR Tab PO SCH ×2 (14:33→21:59)
--- NOTE | 2016-12-15 16:41 | CP.PCM.PN ---
<Tiffany Joya - Last Filed: 12/15/16 16:37> Subjective - Date & Time of Evaluation Date of Evaluation: 12/15/16 Time of Evaluation: 16:30 - Subjective Subjective: 51 year old female pt seen at bedside today for follow-up of left heel ulceration. Pt seen resting bed watching tv at time of visit, appears quite lethargic today. Does complain of some mild pain to the left foot. Denies f/n/v/ c/sob/cp at this time. Denies any other problems today. Objective - Vital Signs/Intake and Output Vital Signs (last 24 hours): Temp Pulse Resp BP Pulse Ox 98.2 F 65 20 171/90 H 96 12/15/16 16:00 12/15/16 16:00 12/15/16 16:00 12/15/16 16:00 12/15/16 16:00 Intake and Output: 12/15/16 12/15/16 06:59 18:59 Intake Total 1240 480 Balance 1240 480 - Medications Medications: Current Medications Albuterol/Ipratropium (Duoneb 3 Mg/0.5 Mg (3 Ml) Ud) 3 ml IH [id number] PRN PRN Reason: Shortness of Breath Atorvastatin Calcium (Lipitor) 20 mg PO DIN [facility] Last Admin: 12/14/16 18:14 Dose: 20 mg Clopidogrel Bisulfate (Plavix) 75 mg PO DAILY [facility] Last Admin: 12/15/16 11:37 Dose: 75 mg Diphenhydramine HCl (Benadryl) 25 mg PO Q6 PRN PRN Reason: Itching / Pruritus Last Admin: 12/13/16 22:53 Dose: 25 mg Diphenhydramine HCl (Benadryl) 25 mg PO HS PRN PRN Reason: Insomnia Last Admin: 12/14/16 22:50 Dose: 25 mg Docusate Sodium (Colace) 100 mg PO BID [facility] Last Admin: 12/15/16 11:47 Dose: Not Given Gabapentin (Neurontin) 300 mg PO TID [facility] PRN Reason: Protocol Last Admin: 12/15/16 13:55 Dose: 300 mg Heparin Sodium (Porcine) (Heparin) 5,000 units SC Q12 [facility] PRN Reason: Protocol Last Admin: 12/15/16 11:48 Dose: Not Given Hydralazine HCl (Apresoline) 10 mg IVP Q6 PRN PRN Reason: Systolic Blood Pressure Hydromorphone HCl (Dilaudid) 0.5 mg IVP Q4H PRN PRN Reason: Pain, severe (8-10) Last Admin: 12/15/16 15:41 Dose: 0.5 mg Piperacillin Sod/Tazobactam Sod (Zosyn 3.375 In Ns 100ml) 100 mls @ 200 mls/hr IVPB Q6 [facility] PRN Reason: Protocol Stop: 12/27/16 12:01 Last Admin: 12/15/16 11:36 Dose: 200 mls/hr Sodium Chloride (Sodium Chloride 0.9%) 1,000 mls @ 100 mls/hr IV .Q10H [facility] Last Admin: 12/15/16 04:48 Dose: Not Given Insulin Detemir (Levemir) 20 unit SC HS [facility] Last Admin: 12/14/16 22:55 Dose: 20 unit Insulin Human Regular (Humulin R Low) 0 units SC ACHS [facility] PRN Reason: Protocol Last Admin: 12/15/16 13:07 Dose: 1 units Linezolid (Zyvox) 600 mg PO BID [facility] PRN Reason: Protocol Stop: 12/29/16 18:01 Last Admin: 12/15/16 11:35 Dose: 600 mg Lorazepam (Ativan) 0.5 mg PO TID PRN; Protocol PRN Reason: Anxiety Last Admin: 12/08/16 10:37 Dose: 0.5 mg Metoclopramide HCl (Reglan) 5 mg IVP Q6 PRN PRN Reason: Nausea/Vomiting Last Admin: 12/08/16 11:40 Dose: 5 mg Metoprolol Tartrate (Lopressor) 25 mg PO BID [facility] Last Admin: 12/15/16 11:36 Dose: 25 mg Morphine Sulfate (Morphine Extended Release Tab) 30 mg PO Q12 [facility] Stop: 12/21/16 23:59 Last Admin: 12/15/16 14:33 Dose: 30 mg Olanzapine (Zyprexa Zydis) 5 mg PO HS [facility] PRN Reason: Protocol Last Admin: 12/14/16 21:52 Dose: Not Given Ondansetron HCl (Zofran Inj) 4 mg IVP Q4 PRN PRN Reason: Nausea/Vomiting Pantoprazole Sodium (Protonix Ec Tab) 40 mg PO 0600 [facility] Last Admin: 12/15/16 05:55 Dose: 40 mg Polyethylene Glycol (Miralax) 17 gm PO DAILY PRN PRN Reason: Constipation Last Admin: 12/13/16 09:12 Dose: 17 gm Trazodone HCl (Desyrel) 50 mg PO HS [facility] Last Admin: 12/14/16 22:00 Dose: Not Given Ziprasidone (Geodon Inj) 20 mg IM Q6 PRN; Protocol PRN Reason: Agitation - Labs Labs: 12/14/16 07:00 12/14/16 07:00 PT 11.6 Seconds (9.9-11.8) 11/25/16 03:00 INR 1.07 (0.93-1.08) 11/25/16 03:00 APTT 24.2 Seconds (23.7-30.8) 11/25/16 03:00 - Constitutional Appears: Non-toxic, No Acute Distress - Extremities Exam Additional comments: LLE exam: Dressing to left foot appears loosened and not covering wound, again seen not wearing offloading boots Vasc: DP & PT pulses are 1/4 bilaterally, temperature gradient WNL, [employer]PER[employer]OR < 3 seconds to digits x 5, no pedal edema noted Derm: there is a full thickness ulceration noted to the left heel measuring approximately 3.8x 3.5x0.4 cm with 100% granular base with no probe to bone noted, no purulence, no fluctuance, no drainage noted, (-) probe to bone Neuro: protective pedal sensation is grossly diminished Ortho:mild tenderness to palpation of the left heel - Neurological Exam Neurological Exam: Awake - Psychiatric Exam Psychiatric exam: Flat Affect Assessment and Plan - Assessment and Plan (Free Text) Assessment: 51 year old female with unstageable ulceration to left heel with OM Plan: Patient seen and evaluated at bedside Discussed plan in detail with Dr. Brady Chart, labs, vitals reviewed: afebrile, no leukocytosis Ulceration cleansed with sterile water, petroleum gauze, ABD and kerlix applied to left heel. Offloading heel boot re-donned to left foot Once again reminded pt of importance of wearing offloading boot for healing purposes. Pt is stable from podiatry standpoint to be D/C to [facility] for [facility]itent[facility] abx for + OM Patient to follow up with her surgeon for further wound treatment Podiatry will follow while in house. <Sheridan Brady - Last Filed: 12/23/16 15:06> Objective - Vital Signs/Intake and Output Vital Signs (last 24 hours): Temp Pulse Resp BP Pulse Ox 98 F 89 20 128/85 98 12/23/16 08:17 12/23/16 08:17 12/23/16 08:17 12/23/16 09:58 12/23/16 08:17 Intake and Output: 12/23/16 12/23/16 06:59 18:59 Intake Total 720 320 Output Total 550 Balance 170 320 - Medications Medications: Current Medications Albuterol/Ipratropium (Duoneb 3 Mg/0.5 Mg (3 Ml) Ud) 3 ml IH [id number] PRN PRN Reason: Shortness of Breath Atorvastatin Calcium (Lipitor) 20 mg PO DIN [facility] Last Admin: 12/22/16 17:38 Dose: 20 mg Benzocaine/Menthol (Cepacol Sore Throat) 1 mickey MT Q2H PRN PRN Reason: Sore Throat Last Admin: 12/18/16 17:18 Dose: 1 mickey Clopidogrel Bisulfate (Plavix) 75 mg PO DAILY [facility] Last Admin: 12/23/16 09:58 Dose: 75 mg Diphenhydramine HCl (Benadryl) 25 mg PO Q6 PRN PRN Reason: Itching / Pruritus Last Admin: 12/20/16 09:26 Dose: 25 mg Diphenhydramine HCl (Benadryl) 25 mg PO HS PRN PRN Reason: Insomnia Last Admin: 12/22/16 21:19 Dose: 25 mg Docusate Sodium (Colace) 100 mg PO BID PRN PRN Reason: Constipation Last Admin: 12/19/16 09:27 Dose: 100 mg Gabapentin (Neurontin) 300 mg PO TID [facility] PRN Reason: Protocol Last Admin: 12/23/16 13:24 Dose: 300 mg Heparin Sodium (Porcine) (Heparin) 5,000 units SC Q12 [facility] PRN Reason: Protocol Last Admin: 12/23/16 09:57 Dose: Not Given Hydralazine HCl (Apresoline) 10 mg IVP Q6 PRN PRN Reason: Systolic Blood Pressure Last Admin: 12/16/16 06:40 Dose: 10 mg Hydromorphone HCl (Dilaudid) 0.5 mg IVP Q4H PRN PRN Reason: Pain, severe (8-10) Last Admin: 12/23/16 11:45 Dose: 0.5 mg Piperacillin Sod/Tazobactam Sod (Zosyn 3.375 In Ns 100ml) 100 mls @ 200 mls/hr IVPB Q6 [facility] PRN Reason: Protocol Stop: 01/05/17 12:01 Last Admin: 12/23/16 12:25 Dose: 200 mls/hr Insulin Detemir (Levemir) 25 unit SC HS [facility] Last Admin: 12/22/16 22:05 Dose: 25 unit Insulin Human Regular (Humulin R Low) 0 units SC [facility] PRN Reason: Protocol Last Admin: 12/23/16 13:21 Dose: Not Given Linezolid (Zyvox) 600 mg PO BID [facility] PRN Reason: Protocol Stop: 12/29/16 18:01 Last Admin: 12/23/16 09:59 Dose: 600 mg Lorazepam (Ativan) 0.5 mg PO TID PRN; Protocol PRN Reason: Anxiety Last Admin: 12/20/16 09:08 Dose: 0.5 mg Metoprolol Tartrate (Lopressor) 25 mg PO BID [facility] Last Admin: 12/23/16 09:58 Dose: 25 mg Morphine Sulfate (Morphine Extended Release Tab) 30 mg PO Q12 [facility] Last Admin: 12/23/16 09:59 Dose: 30 mg Ondansetron HCl (Zofran Inj) 4 mg IVP Q4H PRN PRN Reason: Nausea/Vomiting Pantoprazole Sodium (Protonix Ec Tab) 40 mg PO 0600 [facility] Last Admin: 12/23/16 05:17 Dose: 40 mg Trazodone HCl (Desyrel) 50 mg PO HS [facility] Last Admin: 12/22/16 21:23 Dose: Not Given - Labs Labs: 12/22/16 06:30 12/22/16 06:30 PT 11.6 Seconds (9.9-11.8) 11/25/16 03:00 INR 1.07 (0.93-1.08) 11/25/16 03:00 APTT 24.2 Seconds (23.7-30.8) 11/25/16 03:00 Attending/Attestation - Attestation I have personally seen and examined this patient.: Yes I have fully participated in the care of the patient.: Yes I have reviewed all pertinent clinical information, including history, physical exam and plan: Yes
[2016-12-15] MEDS: Insulin Detemir 100 units/ml Vial (Levemir) SC SCH (21:58)
[2016-12-15] MEDS: OLANZapine 5 mg Disintegrating Tab PO SCH (22:01)
[2016-12-16] MEDS: HYDROmorphone 0.5 mg/0.5 ml ISec IVP PRN ×6 (00:29→20:48)
[2016-12-16] MEDS: Piperacillin/Tazobact 3.375 gm 100 ML IVPB SCH ×4 (06:31→23:38)
[2016-12-16] MEDS: Pantoprazole 40 mg EC Tab PO SCH (06:31)
[2016-12-16] MEDS: Insulin Reg-LOW-Coverage SC SCH ×4 (08:09→22:24)
[2016-12-16] MEDS: Morphine 30 mg SR Tab PO SCH ×2 (11:27→22:22)
[2016-12-16] MEDS: Sodium Chloride 0.9% 1,000 ML IV SCH ×2 (11:29→23:37)
--- NOTE | 2016-12-16 13:40 | CP.PCM.PN ---
<TRES ARTHUR - Last Filed: 12/16/16 13:33> Subjective - Date & Time of Evaluation Date of Evaluation: 12/16/16 Time of Evaluation: 07:00 - Subjective Subjective: Medicine Progress Note: Pt seen and assessed at bedside. Pt complained of difficulty swallowing. Patient states that she is still able to swallow solid foods but just not as much at one time as she could before. Patient also complained of chronic vision loss. She states that she "just can't see as good as I used to". Ophthalmology consult and their recommendations were reiterated to patient. Pt denied headache , fever, dizziness, shortness of breath, chest pain, N/V, abdominal pain, diarrhea or constipation. Objective - Vital Signs/Intake and Output Vital Signs (last 24 hours): Temp Pulse Resp BP Pulse Ox 97.8 F 80 16 127/65 97 12/16/16 07:30 12/16/16 11:28 12/16/16 07:30 12/16/16 11:28 12/16/16 07:30 Intake and Output: 12/16/16 12/16/16 06:59 18:59 Intake Total 420 Balance 420 - Medications Medications: Current Medications Albuterol/Ipratropium (Duoneb 3 Mg/0.5 Mg (3 Ml) Ud) 3 ml IH [id number] PRN PRN Reason: Shortness of Breath Atorvastatin Calcium (Lipitor) 20 mg PO DIN [facility] Last Admin: 12/15/16 17:58 Dose: 20 mg Clopidogrel Bisulfate (Plavix) 75 mg PO DAILY [facility] Last Admin: 12/16/16 11:27 Dose: 75 mg Diphenhydramine HCl (Benadryl) 25 mg PO Q6 PRN PRN Reason: Itching / Pruritus Last Admin: 12/13/16 22:53 Dose: 25 mg Diphenhydramine HCl (Benadryl) 25 mg PO HS PRN PRN Reason: Insomnia Last Admin: 12/15/16 23:04 Dose: 25 mg Docusate Sodium (Colace) 100 mg PO BID [facility] Last Admin: 12/16/16 11:30 Dose: Not Given Gabapentin (Neurontin) 300 mg PO TID [facility]KKI PRN Reason: Protocol Last Admin: 12/16/16 11:28 Dose: 300 mg Heparin Sodium (Porcine) (Heparin) 5,000 units SC Q12 [facility]KKI PRN Reason: Protocol Last Admin: 12/16/16 11:26 Dose: Not Given Hydralazine HCl (Apresoline) 10 mg IVP Q6 PRN PRN Reason: Systolic Blood Pressure Last Admin: 12/16/16 06:40 Dose: 10 mg Hydromorphone HCl (Dilaudid) 0.5 mg IVP Q4H PRN PRN Reason: Pain, severe (8-10) Last Admin: 12/16/16 12:47 Dose: 0.5 mg Piperacillin Sod/Tazobactam Sod (Zosyn 3.375 In Ns 100ml) 100 mls @ 200 mls/hr IVPB Q6 MIKKI PRN Reason: Protocol Stop: 12/27/16 12:01 Last Admin: 12/16/16 11:25 Dose: 200 mls/hr Sodium Chloride (Sodium Chloride 0.9%) 1,000 mls @ 100 mls/hr IV .Q10H [facility] Last Admin: 12/16/16 11:29 Dose: Not Given Insulin Detemir (Levemir) 20 unit SC HS [facility] Last Admin: 12/15/16 21:58 Dose: 20 unit Insulin Human Regular (Humulin R Low) 0 units SC ACHS [facility] PRN Reason: Protocol Last Admin: 12/16/16 11:29 Dose: 2 units Linezolid (Zyvox) 600 mg PO BID [facility] PRN Reason: Protocol Stop: 12/29/16 18:01 Last Admin: 12/16/16 11:27 Dose: 600 mg Lorazepam (Ativan) 0.5 mg PO TID PRN; Protocol PRN Reason: Anxiety Last Admin: 12/08/16 10:37 Dose: 0.5 mg Metoclopramide HCl (Reglan) 5 mg IVP Q6 PRN PRN Reason: Nausea/Vomiting Last Admin: 12/08/16 11:40 Dose: 5 mg Metoprolol Tartrate (Lopressor) 25 mg PO BID [facility] Last Admin: 12/16/16 11:28 Dose: 25 mg Morphine Sulfate (Morphine Extended Release Tab) 30 mg PO Q12 [facility] Stop: 12/21/16 23:59 Last Admin: 12/16/16 11:27 Dose: 30 mg Olanzapine (Zyprexa Zydis) 5 mg PO HS [facility] PRN Reason: Protocol Last Admin: 12/15/16 22:01 Dose: Not Given Ondansetron HCl (Zofran Inj) 4 mg IVP Q4 PRN PRN Reason: Nausea/Vomiting Pantoprazole Sodium (Protonix Ec Tab) 40 mg PO 0600 [facility] Last Admin: 12/16/16 06:31 Dose: 40 mg Polyethylene Glycol (Miralax) 17 gm PO DAILY PRN PRN Reason: Constipation Last Admin: 12/13/16 09:12 Dose: 17 gm Trazodone HCl (Desyrel) 50 mg PO HS [facility] Last Admin: 12/15/16 22:00 Dose: Not Given Ziprasidone (Geodon Inj) 20 mg IM Q6 PRN; Protocol PRN Reason: Agitation - Labs Labs: 12/14/16 07:00 12/14/16 07:00 PT 11.6 Seconds (9.9-11.8) 11/25/16 03:00 INR 1.07 (0.93-1.08) 11/25/16 03:00 APTT 24.2 Seconds (23.7-30.8) 11/25/16 03:00 - Constitutional Appears: No Acute Distress - Head Exam Head Exam: NORMAL INSPECTION, NORMOCEPHALIC - Eye Exam Eye Exam: EOMI, Normal appearance - ENT Exam ENT Exam: Mucous Membranes Moist, Normal Exam - Neck Exam Neck Exam: Full ROM - Respiratory Exam Respiratory Exam: Clear to Ausculation Bilateral, NORMAL BREATHING PATTERN. absent: Rales, Rhonchi, Wheezes, Respiratory Distress - Cardiovascular Exam Cardiovascular Exam: REGULAR RHYTHM, RRR, +S1, +S2. absent: Bradycardia, Tachycardia, Murmur - GI/Abdominal Exam GI & Abdominal Exam: Normal Bowel Sounds. absent: Distended, Firm, Guarding, Tenderness - Extremities Exam Extremities Exam: Normal Capillary Refill. absent: Calf Tenderness, Pedal Edema Additional comments: L heel wound dressing clean dry and intact - Neurological Exam Neurological Exam: Alert, Awake, Oriented x3 - Psychiatric Exam Psychiatric exam: Normal Affect, Normal Mood - Skin Skin Exam: Dry, Intact, Normal Color, Warm Assessment and Plan - Assessment and Plan (Free Text) Assessment: Ms. Kerr is a 51 yo female with a past medical history of PA, hyperlipidemia, diabetes, HTN, CKD, asthma, DVT, uterine cancer, lung cancer and thromboembolic disease S/P left heel osteomyelitis debridement who was admitted for evaluation and treatment of chest pain and left heel pain. Plan: 1. Osteomyelitis of L Calcaneus -ID consulted, all recommendations appreciated -wound cultures showed MRSA and amikacin sensitive proteus mirabilis -4-6 weeks of Zosyn and 3-4 weeks of Zyvox with weekly ESR, CRP, CBC, CMP. Will consider PO antibiotics if these trend downward, per ID -cont with Zosyn and Zyvox (Day 20), per ID -pain control with PO morphine and IV dilaudid; no complaints of break through pain to medicine team -podiatry consulted, all recommendations appreciated -offloading boot to L foot, per podiatry -cont PT/OT who suggest [facility] placement upon DC -SW/case management working on acute care placement; discharge from hospital delayed due to placement issues 2. Dysphagia -patient reports dysphagia to medicine team however also asking for two lunch trays and finishing all meals with no reported difficulty swallowing per nursing reports -will continue to monitor at this time and obtain swallowing study when clinically indicated 3. Chronic Pancreatitis -recommended IVF -cont with humilin SSI and levemir -pain control with morphine and dilaudid -heart healthy diet with low fat -will cont to monitor 4. Delirium -psychiatry following, all recommendations appreciated -psychiatry notes improvement in patients communication skills -cont PRN Geodon, PRN Risperidone and PRN Ativan -zyprexa zydis 5mg HS, per psych 5. Vision Changes -optho consulted and agreed to see as outpatient; reinforced this with patient -will assist pt in scheduling upon discharge -will f/u with patients previous physicians mentioned during exam -will cont to monitor 6. Constipation - PRN miralax - will cont to monitor for diarrhea 7. Thyroid Nodule -TSH wnl -asymptomatic at this time -will continue to monitor 8. Anemia -Iron studies within normal limits -B12 and Folate WNL -continuing to monitor with daily CBC's 9. Asthma -Duoneb q4 PRN 10. History of Medication Noncompliance - patient noticeably more compliant with medication therapy as of late - will continue to educate patient on the importance of medication compliance with all prescribed medications whenever appropriate 11. History of Heart, Lung, and Uterine Cancer - self reported by patient; [place] [facility] [place] [facility] - noncontrast CT of chest/abdomen/ pelvis showed no acute disease processes in heart, lung or uterus - will continue to monitor clinically and consult hem/onc when clinically appropriate 12. GI/DVT prophylaxis -protonix/ SCD Patient seen and case discussed with attending physician, Dr. Woodward. <Crissy HER,Mimi - Last Filed: 12/16/16 14:27> Objective - Vital Signs/Intake and Output Vital Signs (last 24 hours): Temp Pulse Resp BP Pulse Ox 97.8 F 80 16 127/65 97 12/16/16 07:30 12/16/16 11:28 12/16/16 07:30 12/16/16 11:28 12/16/16 07:30 Intake and Output: 12/16/16 12/16/16 06:59 18:59 Intake Total 420 480 Balance 420 480 - Medications Medications: Current Medications Albuterol/Ipratropium (Duoneb 3 Mg/0.5 Mg (3 Ml) Ud) 3 ml IH [id number] PRN PRN Reason: Shortness of Breath Atorvastatin Calcium (Lipitor) 20 mg PO DIN [facility] Last Admin: 12/15/16 17:58 Dose: 20 mg Clopidogrel Bisulfate (Plavix) 75 mg PO DAILY [facility] Last Admin: 12/16/16 11:27 Dose: 75 mg Diphenhydramine HCl (Benadryl) 25 mg PO Q6 PRN PRN Reason: Itching / Pruritus Last Admin: 12/13/16 22:53 Dose: 25 mg Diphenhydramine HCl (Benadryl) 25 mg PO HS PRN PRN Reason: Insomnia Last Admin: 12/15/16 23:04 Dose: 25 mg Docusate Sodium (Colace) 100 mg PO BID [facility] Last Admin: 12/16/16 11:30 Dose: Not Given Gabapentin (Neurontin) 300 mg PO TID [facility] PRN Reason: Protocol Last Admin: 12/16/16 11:28 Dose: 300 mg Heparin Sodium (Porcine) (Heparin) 5,000 units SC Q12 [facility] PRN Reason: Protocol Last Admin: 12/16/16 11:26 Dose: Not Given Hydralazine HCl (Apresoline) 10 mg IVP Q6 PRN PRN Reason: Systolic Blood Pressure Last Admin: 12/16/16 06:40 Dose: 10 mg Hydromorphone HCl (Dilaudid) 0.5 mg IVP Q4H PRN PRN Reason: Pain, severe (8-10) Last Admin: 12/16/16 12:47 Dose: 0.5 mg Piperacillin Sod/Tazobactam Sod (Zosyn 3.375 In Ns 100ml) 100 mls @ 200 mls/hr IVPB Q6 [facility] PRN Reason: Protocol Stop: 12/27/16 12:01 Last Admin: 12/16/16 11:25 Dose: 200 mls/hr Sodium Chloride (Sodium Chloride 0.9%) 1,000 mls @ 100 mls/hr IV .Q10H [facility] Last Admin: 12/16/16 11:29 Dose: Not Given Insulin Detemir (Levemir) 20 unit SC HS [facility] Last Admin: 12/15/16 21:58 Dose: 20 unit Insulin Human Regular (Humulin R Low) 0 units SC ACHS [facility] PRN Reason: Protocol Last Admin: 12/16/16 11:29 Dose: 2 units Linezolid (Zyvox) 600 mg PO BID [facility] PRN Reason: Protocol Stop: 12/29/16 18:01 Last Admin: 12/16/16 11:27 Dose: 600 mg Lorazepam (Ativan) 0.5 mg PO TID PRN; Protocol PRN Reason: Anxiety Last Admin: 12/08/16 10:37 Dose: 0.5 mg Metoclopramide HCl (Reglan) 5 mg IVP Q6 PRN PRN Reason: Nausea/Vomiting Last Admin: 12/08/16 11:40 Dose: 5 mg Metoprolol Tartrate (Lopressor) 25 mg PO BID [facility] Last Admin: 12/16/16 11:28 Dose: 25 mg Morphine Sulfate (Morphine Extended Release Tab) 30 mg PO Q12 [facility] Stop: 12/21/16 23:59 Last Admin: 12/16/16 11:27 Dose: 30 mg Olanzapine (Zyprexa Zydis) 5 mg PO HS [facility] PRN Reason: Protocol Last Admin: 12/15/16 22:01 Dose: Not Given Ondansetron HCl (Zofran Inj) 4 mg IVP Q4 PRN PRN Reason: Nausea/Vomiting Pantoprazole Sodium (Protonix Ec Tab) 40 mg PO 0600 [facility] Last Admin: 12/16/16 06:31 Dose: 40 mg Polyethylene Glycol (Miralax) 17 gm PO DAILY PRN PRN Reason: Constipation Last Admin: 12/13/16 09:12 Dose: 17 gm Trazodone HCl (Desyrel) 50 mg PO HS [facility] Last Admin: 12/15/16 22:00 Dose: Not Given Ziprasidone (Geodon Inj) 20 mg IM Q6 PRN; Protocol PRN Reason: Agitation - Labs Labs: 12/14/16 07:00 12/14/16 07:00 PT 11.6 Seconds (9.9-11.8) 11/25/16 03:00 INR 1.07 (0.93-1.08) 11/25/16 03:00 APTT 24.2 Seconds (23.7-30.8) 11/25/16 03:00 Attending/Attestation - Attestation I have personally seen and examined this patient.: Yes I have fully participated in the care of the patient.: Yes I have reviewed all pertinent clinical information, including history, physical exam and plan: Yes Notes (Text): 12/16/16 14:24 Patient seen and examined with resident. 51 year old female with past medical history of PA, diabetes, hypertension, chronic heel ulcer and chronic OM who was recently discharged to [facility] on iv antibiotics who presented with complaint of chest pain.workup is negative. Currently on IV zosyn and zyvox for Left heel osteomyelitis, need total 6 weeks of antibiotics. Podiatry follow-up is appreciated Patient also has CKD and anemia, stable at base line. She is on levemir and insulin sliding scale for diabetes. Physical therapy evaluation appreciated. Recommending subacute rehabilitation. Patient is awaiting for placement. Managment plan was discussed in detail with patient.
--- NOTE | 2016-12-16 19:39 | PN ---
SUBJECTIVE: A 51-year-old female, seen at bedside today for continued evaluation and management of slowly resolving left heel ulceration. Once again, she presents not wearing the offloading foam heel-boots and she has been told to every single day since admission. She states that she does not want to wear them and the nurses take them away even though they are sitting right on the chair next to the bed. She denies any fever, chills, nausea, or vomiting. PHYSICAL EXAMINATION: VITAL SIGNS: Temperature of 97.8, pulse rate of 69, blood pressure of 127/65, respiratory rate of 16. EXTREMITIES: Palpable pedal pulses noted bilaterally. Temperature gradient is within normal limits. There is noted to be no edema, no erythema and no localized cellulitis on either foot. Capillary filling time is within normal limits. There is a full thickness ulceration on the left heel heel and measures approximately 3.5 x 3.5 x 0.4. The ulcer remains primarily granular with serous drainage only, there is no purulence to suggest underlying abscess formation. There is only minimal serous drainage. There is no probing to bone noted. The patient is unable to detect 5.07 gram monofilament wire testing bilaterally. LABORATORY DATA: White count of 6.6, hemoglobin of 8.8, hematocrit of 27, platelet count of 197. ASSESSMENT: A 51-year-old female with full thickness ulceration to the left heel with clinical osteomyelitis. PLAN: Once again, the patient was told that it is imperative that she uses a foam boots at bedside to offload her heels which I explained means it takes the weight off of her heels and allows the wound to heal. Wound was cleansed with normal sterile saline, applied petrolatum gauze, abdominal pad and Kerlix to the left heel. Reapplied the left foam boot. We will continue to follow her daily while in house and continue with IV antibiotics as per infectious disease. Tyler Hughes DPM
[2016-12-16] MEDS: Insulin Detemir 100 units/ml Vial (Levemir) SC SCH (22:23)
[2016-12-16] MEDS: OLANZapine 5 mg Disintegrating Tab PO SCH (22:39)
--- NOTE | 2016-12-16 23:43 | PN ---
DATE: SUBJECTIVE: The patient is in bed, in no acute distress, was seen earlier this morning in room 571, bed 2. She is tolerating the antibiotics well. No nausea. No vomiting. No fevers and chills. PHYSICAL EXAMINATION VITAL SIGNS: Temperature is 97, blood pressure is 160/80, respiratory rate of 18, heart rate of 69. HEENT: Unremarkable. NECK: Supple. LUNGS: Decreased breath sounds. HEART: Normal, S1 and S2. ABDOMEN: Soft and nontender. LABORATORY DATA: Reveals a white count of 6.6, hemoglobin of 8, platelets of 197. Chemistries are noted reveals patient's BUN of 31, creatinine of 1.6. Her last C-reactive protein was 1.78 which is on a . Microbiology reveals Proteus and MRSA. ASSESSMENT AND PLAN: A 51-year-old female with past medical history significant for diabetes, hypertension, dyslipidemia, left foot osteomyelitis and with Methicillin-resistant Staphylococcus aureus and resistant Proteus. Currently on Zyvox and Zosyn with 4 to 6 weeks of therapy. *------* C-reactive protein and *------* of 4 to 6 weeks of therapy. Chandana Acevedo MD
[2016-12-17] MEDS: HYDROmorphone 0.5 mg/0.5 ml ISec IVP PRN ×6 (00:56→23:01)
[2016-12-17] MEDS: Piperacillin/Tazobact 3.375 gm 100 ML IVPB SCH ×4 (06:02→23:13)
[2016-12-17] MEDS: Pantoprazole 40 mg EC Tab PO SCH (06:02)
[2016-12-17] MEDS: Sodium Chloride 0.9% 1,000 ML IV SCH ×2 (06:53→20:24)
[2016-12-17 07:04] LABS: ADD MANUAL DIFF? NO
[2016-12-17 07:12] LABS: BASO # 0.02 K/mm3 (0.0-2.0); BASO % 0.4 % (0.0-3.0); EOS # 0.4 (0.0-0.7); EOS % 6.9 % (1.5-5.0); GRAN # 2.92 (1.4-6.5); GRAN % 54.3 % (50.0-68.0); HEMATOCRIT 27.5 % (36.0-48.0); LYMPH # 1.8 (1.2-3.4); LYMPH % 32.5 % (22.0-35.0); MEAN CELL VOLUME 79.9 fL (80.0-105.0); MEAN CORPUSCULAR HEMOGLOBIN 26.2 pg (25.0-35.0); MEAN CORPUSCULAR HGB CONC 32.7 g/dl (31.0-37.0); MONO # 0.3 (0.1-0.6); MONO % 5.9 % (1.0-6.0); PLATELET COUNT 176 10^3/uL (120.0-450.0); RED CELL DISTRIBUTION WIDTH 16.6 % (11.5-14.5); WHITE BLOOD COUNT 5.4 10^3/ul (4.5-11.0)
[2016-12-17 07:30] LABS: ALB/GLOB RATIO 0.9 (1.1-1.8); BILIRUBIN,TOTAL 0.4 mg/dL (0.2-1.3); CALCIUM 8.9 mg/dL (8.4-10.5); POTASSIUM 5.3 mmol/L (3.6-5.0); TOTAL PROTEIN 6.5 g/dL (5.8-8.3)
[2016-12-17] MEDS ORDERED: Benzocaine/Menthol (Cepacol) Lozenge MT PRN (07:37)
[2016-12-17] MEDS: Insulin Reg-LOW-Coverage SC SCH ×4 (10:06→23:03)
[2016-12-17] MEDS: Morphine 30 mg SR Tab PO SCH ×2 (10:07→21:56)
[2016-12-17] MEDS ORDERED: Sodium Chloride 0.9% 1,000 ML IV SCH (11:15)
--- NOTE | 2016-12-17 16:57 | CARD ---
APPROVED REPORT EKG Measurement Heart [id number] <Conclusion> Normal sinus rhythm Low voltage QRS Borderline ECG
--- NOTE | 2016-12-17 21:17 | CP.PCM.PN ---
<TRES ARTHUR - Last Filed: 12/17/16 21:14> Subjective - Date & Time of Evaluation Date of Evaluation: 12/17/16 Time of Evaluation: 09:00 - Subjective Subjective: Medicine Progress Note: Pt seen and assessed at bedside. Pt continued to complain of worsening vision stating "I can't see as good as I used to. I lose my vision, I am going to an[facility]a" . She also stated that she "uterus pain" and that she had one episode of bloody vaginal discharge this AM. Pt denied headache, fever, dizziness, shortness of breath, chest pain, N/V, abdominal pain, diarrhea or constipation. Objective - Vital Signs/Intake and Output Vital Signs (last 24 hours): Temp Pulse Resp BP Pulse Ox 97.5 F L 71 20 163/91 H 90 L 12/17/16 16:00 12/17/16 17:50 12/17/16 16:00 12/17/16 17:50 12/17/16 16:00 - Medications Medications: Current Medications Albuterol/Ipratropium (Duoneb 3 Mg/0.5 Mg (3 Ml) Ud) 3 ml IH [id number] PRN PRN Reason: Shortness of Breath Atorvastatin Calcium (Lipitor) 20 mg PO DIN [facility] Last Admin: 12/17/16 17:51 Dose: 20 mg Benzocaine/Menthol (Cepacol Sore Throat) 1 mickey MT Q2H PRN PRN Reason: Sore Throat Clopidogrel Bisulfate (Plavix) 75 mg PO DAILY [facility] Last Admin: 12/17/16 10:08 Dose: 75 mg Diphenhydramine HCl (Benadryl) 25 mg PO Q6 PRN PRN Reason: Itching / Pruritus Last Admin: 12/13/16 22:53 Dose: 25 mg Diphenhydramine HCl (Benadryl) 25 mg PO HS PRN PRN Reason: Insomnia Last Admin: 12/16/16 23:38 Dose: 25 mg Docusate Sodium (Colace) 100 mg PO BID PRN PRN Reason: Constipation Gabapentin (Neurontin) 300 mg PO TID MIKKI PRN Reason: Protocol Last Admin: 12/17/16 17:51 Dose: 300 mg Heparin Sodium (Porcine) (Heparin) 5,000 units SC Q12 [facility]KKI PRN Reason: Protocol Last Admin: 12/17/16 14:36 Dose: Not Given Hydralazine HCl (Apresoline) 10 mg IVP Q6 PRN PRN Reason: Systolic Blood Pressure Last Admin: 12/16/16 06:40 Dose: 10 mg Hydromorphone HCl (Dilaudid) 0.5 mg IVP Q4H PRN PRN Reason: Pain, severe (8-10) Last Admin: 12/17/16 18:51 Dose: 0.5 mg Piperacillin Sod/Tazobactam Sod (Zosyn 3.375 In Ns 100ml) 100 mls @ 200 mls/hr IVPB Q6 MIKKI PRN Reason: Protocol Stop: 12/27/16 12:01 Last Admin: 12/17/16 17:52 Dose: 200 mls/hr Sodium Chloride (Sodium Chloride 0.9%) 1,000 mls @ 100 mls/hr IV .Q10H [facility] Last Admin: 12/17/16 20:24 Dose: Not Given Insulin Detemir (Levemir) 25 unit SC HS [facility] Insulin Human Regular (Humulin R Low) 0 units SC ACHS MIKKI PRN Reason: Protocol Last Admin: 12/17/16 18:08 Dose: Not Given Linezolid (Zyvox) 600 mg PO BID MIKKI PRN Reason: Protocol Stop: 12/29/16 18:01 Last Admin: 12/17/16 17:52 Dose: 600 mg Lorazepam (Ativan) 0.5 mg PO TID PRN; Protocol PRN Reason: Anxiety Last Admin: 12/08/16 10:37 Dose: 0.5 mg Metoclopramide HCl (Reglan) 5 mg IVP Q6 PRN PRN Reason: Nausea/Vomiting Last Admin: 12/08/16 11:40 Dose: 5 mg Metoprolol Tartrate (Lopressor) 25 mg PO BID [facility] Last Admin: 12/17/16 17:50 Dose: 25 mg Morphine Sulfate (Morphine Extended Release Tab) 30 mg PO Q12 [facility] Stop: 12/21/16 23:59 Last Admin: 12/17/16 10:07 Dose: 30 mg Olanzapine (Zyprexa Zydis) 5 mg PO HS MIKKI PRN Reason: Protocol Last Admin: 12/16/16 22:39 Dose: Not Given Ondansetron HCl (Zofran Inj) 4 mg IVP Q4 PRN PRN Reason: Nausea/Vomiting Pantoprazole Sodium (Protonix Ec Tab) 40 mg PO 0600 [facility] Last Admin: 12/17/16 06:02 Dose: 40 mg Polyethylene Glycol (Miralax) 17 gm PO DAILY PRN PRN Reason: Constipation Last Admin: 12/13/16 09:12 Dose: 17 gm Trazodone HCl (Desyrel) 50 mg PO HS [facility] Last Admin: 12/16/16 22:37 Dose: Not Given Ziprasidone (Geodon Inj) 20 mg IM Q6 PRN; Protocol PRN Reason: Agitation - Labs Labs: 12/17/16 06:55 12/17/16 06:55 PT 11.6 Seconds (9.9-11.8) 11/25/16 03:00 INR 1.07 (0.93-1.08) 11/25/16 03:00 APTT 24.2 Seconds (23.7-30.8) 11/25/16 03:00 - Constitutional Appears: No Acute Distress - Head Exam Head Exam: NORMAL INSPECTION, NORMOCEPHALIC - Eye Exam Eye Exam: EOMI, Normal appearance - ENT Exam ENT Exam: Mucous Membranes Moist, Normal Exam - Neck Exam Neck Exam: Full ROM - Respiratory Exam Respiratory Exam: NORMAL BREATHING PATTERN. absent: Rales, Rhonchi, Wheezes - Cardiovascular Exam Cardiovascular Exam: REGULAR RHYTHM, RRR, +S1, +S2 - GI/Abdominal Exam GI & Abdominal Exam: Normal Bowel Sounds. absent: Distended, Firm, Guarding, Tenderness - Extremities Exam Extremities Exam: Normal Capillary Refill. absent: Calf Tenderness, Pedal Edema Additional comments: L heel wound dressing clean dry and intact - Neurological Exam Neurological Exam: Alert, Awake, Oriented x3 - Psychiatric Exam Psychiatric exam: Normal Affect, Normal Mood - Skin Skin Exam: Dry, Intact, Normal Color, Warm Assessment and Plan - Assessment and Plan (Free Text) Assessment: Ms. Kerr is a 51 yo female with a past medical history of KS, hyperlipidemia, diabetes, HTN, CKD, asthma, DVT, uterine cancer, lung cancer and thromboembolic disease S/P left heel osteomyelitis debridement who was admitted for evaluation and treatment of chest pain and left heel pain. Plan: 1. Osteomyelitis of L Calcaneus -ID consulted, all recommendations appreciated -wound cultures showed MRSA and amikacin sensitive proteus mirabilis -4-6 weeks of Zosyn and 3-4 weeks of Zyvox with weekly ESR, CRP, CBC, CMP. Will consider PO antibiotics if these trend downward, per ID -cont with Zosyn and Zyvox (Day 21), per ID -pain control with PO morphine and IV dilaudid -podiatry consulted, all recommendations appreciated -offloading boot to L foot, per podiatry -cont PT/OT who suggest [facility] placement upon DC -SW/case management working on acute care placement; discharge from hospital delayed due to placement issues 2. Hyperkalemia - K+ at 5.3 on 12/17 - creatinine 1.9 on 12/17 - patient refused recommended IVF and EKG - will cont to monitor clinically and adjust medications that can cause hyperkalemia 3. Vaginal Discharge - no reports of bloody discharge per nursing staff - patient refused pelvic exam on 12/17 - stable hemoglobin and hematocrit - gonorrhea, chlamydia, BV and trichomonas cultures pending - will cont to monitor and consult [employer] when clinically appropriate 4. Dysphagia -will continue to monitor at this time and obtain swallowing study when clinically indicated 5. Chronic Pancreatitis -recommended IVF -cont with humilin SSI; increased levemir from 20u Hs to 25u Hs -pain control with morphine and dilaudid -heart healthy diet with low fat -will cont to monitor 6. Delirium -psychiatry following, all recommendations appreciated -psychiatry notes improvement in patients communication skills -cont PRN Geodon, PRN Risperidone and PRN Ativan -zyprexa zydis 5mg HS, per psych 7. Vision Changes -ophthalmology reconsulted on 12/17 -will assist pt in scheduling upon discharge, as per original ophthalmology recommendations -will cont to monitor 8. Constipation - PRN miralax - will cont to monitor for diarrhea 9. Thyroid Nodule -TSH wnl -asymptomatic at this time -will continue to monitor 10. Anemia -Iron studies within normal limits -B12 and Folate WNL -continuing to monitor with daily CBC's 11. Asthma -Duoneb q4 PRN 12. History of Medication Noncompliance - patient noticeably more compliant with medication therapy; only refusing heparin and IVF - will continue to educate patient on the importance of medication compliance with all prescribed medications whenever appropriate 13. History of Heart, Lung, and Uterine Cancer - self reported by patient; no written record of illness at [facility] or [facility] - noncontrast CT of chest/abdomen/ pelvis showed no acute disease processes in heart, lung or uterus - will continue to monitor clinically and consult hem/onc when clinically appropriate 14. GI/DVT prophylaxis -protonix/ SCD Patient seen and case discussed with attending physician, Dr. Woodward. <Crissy HER,Mimi - Last Filed: 12/19/16 15:32> Objective - Vital Signs/Intake and Output Vital Signs (last 24 hours): Temp Pulse Resp BP Pulse Ox 98 F 70 20 124/76 99 12/18/16 16:00 12/18/16 17:16 12/18/16 16:00 12/18/16 17:16 12/18/16 16:00 Intake and Output: 12/19/16 12/19/16 06:59 18:59 Intake Total 660 Balance 660 - Medications Medications: Current Medications Albuterol/Ipratropium (Duoneb 3 Mg/0.5 Mg (3 Ml) Ud) 3 ml IH [id number] PRN PRN Reason: Shortness of Breath Atorvastatin Calcium (Lipitor) 20 mg PO DIN [facility] Last Admin: 12/18/16 17:16 Dose: 20 mg Benzocaine/Menthol (Cepacol Sore Throat) 1 mickey MT Q2H PRN PRN Reason: Sore Throat Last Admin: 12/18/16 17:18 Dose: 1 mickey Clopidogrel Bisulfate (Plavix) 75 mg PO DAILY [facility] Last Admin: 12/19/16 09:27 Dose: 75 mg Diphenhydramine HCl (Benadryl) 25 mg PO Q6 PRN PRN Reason: Itching / Pruritus Last Admin: 12/19/16 00:39 Dose: 25 mg Diphenhydramine HCl (Benadryl) 25 mg PO HS PRN PRN Reason: Insomnia Last Admin: 12/17/16 23:01 Dose: 25 mg Docusate Sodium (Colace) 100 mg PO BID PRN PRN Reason: Constipation Last Admin: 12/19/16 09:27 Dose: 100 mg Gabapentin (Neurontin) 300 mg PO TID MIKKI PRN Reason: Protocol Last Admin: 12/19/16 14:14 Dose: 300 mg Heparin Sodium (Porcine) (Heparin) 5,000 units SC Q12 MIKKI PRN Reason: Protocol Last Admin: 12/19/16 09:27 Dose: 5,000 units Hydralazine HCl (Apresoline) 10 mg IVP Q6 PRN PRN Reason: Systolic Blood Pressure Last Admin: 12/16/16 06:40 Dose: 10 mg Hydromorphone HCl (Dilaudid) 0.5 mg IVP Q4H PRN PRN Reason: Pain, severe (8-10) Last Admin: 12/19/16 14:14 Dose: 0.5 mg Piperacillin Sod/Tazobactam Sod (Zosyn 3.375 In Ns 100ml) 100 mls @ 200 mls/hr IVPB Q6 [facility] PRN Reason: Protocol Stop: 12/27/16 12:01 Last Admin: 12/19/16 14:16 Dose: 200 mls/hr Sodium Chloride (Sodium Chloride 0.9%) 1,000 mls @ 100 mls/hr IV .Q10H [facility] Last Admin: 12/18/16 22:00 Dose: Not Given Insulin Detemir (Levemir) 25 unit SC HS [facility] Last Admin: 12/19/16 00:40 Dose: 25 unit Insulin Human Regular (Humulin R Low) 0 units SC ACHS [facility] PRN Reason: Protocol Last Admin: 12/19/16 11:30 Dose: Not Given Linezolid (Zyvox) 600 mg PO BID [facility] PRN Reason: Protocol Stop: 12/29/16 18:01 Last Admin: 12/19/16 09:28 Dose: 600 mg Lorazepam (Ativan) 0.5 mg PO TID PRN; Protocol PRN Reason: Anxiety Last Admin: 12/08/16 10:37 Dose: 0.5 mg Metoprolol Tartrate (Lopressor) 25 mg PO BID [facility] Last Admin: 12/19/16 09:28 Dose: 25 mg Morphine Sulfate (Morphine Extended Release Tab) 30 mg PO Q12 [facility] Stop: 12/21/16 23:59 Last Admin: 12/19/16 11:04 Dose: 30 mg Ondansetron HCl (Zofran Inj) 4 mg IVP Q4H PRN PRN Reason: Nausea/Vomiting Pantoprazole Sodium (Protonix Ec Tab) 40 mg PO 0600 [facility] Last Admin: 12/19/16 05:06 Dose: 40 mg Polyethylene Glycol (Miralax) 17 gm PO DAILY PRN PRN Reason: Constipation Last Admin: 12/13/16 09:12 Dose: 17 gm Trazodone HCl (Desyrel) 50 mg PO HS [facility] Last Admin: 12/18/16 22:00 Dose: Not Given - Labs Labs: 12/19/16 06:45 12/19/16 06:45 PT 11.6 Seconds (9.9-11.8) 11/25/16 03:00 INR 1.07 (0.93-1.08) 11/25/16 03:00 APTT 24.2 Seconds (23.7-30.8) 11/25/16 03:00 Attending/Attestation - Attestation I have personally seen and examined this patient.: Yes I have fully participated in the care of the patient.: Yes I have reviewed all pertinent clinical information, including history, physical exam and plan: Yes Notes (Text): 12/19/16 15:24 Patient seen and examined with resident. 51 year old female with past medical history of KS, diabetes, hypertension, chronic heel ulcer and chronic OM who was recently discharged to [facility] on iv antibiotics who presented with complaint of chest pain.workup is negative.Currently on IV zosyn and zyvox for Left heel osteomyelitis, need total 6 weeks of antibiotics.Patient also has CKD, creatinin is 1.9, slightly increased from his base line , also has mild hyperkalemia, Patient is refusiong IV fluid and EKG, the issue was discussed in detail with her.She is alert, awake and oriented at this time .Patient was giving history of uterine bleeding but she is refusing for pelvic examination and vaginal cultures. Patient is awaiting for placement. Prognosis is guarded. Management plan was discussed in detail with patient.
--- NOTE | 2016-12-17 21:42 | PN ---
DATE: 12/17/2016 SUBJECTIVE: The patient is in bed, in no acute distress, nontoxic. PHYSICAL EXAMINATION VITAL SIGNS: Temperature is 98, blood pressure is 160/70, respiratory rate of 18, heart rate of 20. HEENT: Unremarkable. NECK: Supple. CARDIOPULMONARY: Normal S1, S2. LUNGS: Decreased breath sounds. ABDOMEN: Soft, nontender. LABORATORY DATA: Reveals a white count of 5.4, hemoglobin of 9, platelets are noted. BUN of 35, creatinine of 1.9. Urinalysis is noted and microbiology. Review of orders. Review of the patient's Zyvox and Zosyn require *------* which I will do so. ASSESSMENT AND PLAN: This is a 51-year-old female with past medical history of diabetes, hypertension, dyslipidemia, left foot osteomyelitis with MRSA and resistant Proteus, on Zyvox and Zosyn. Will need 4 to 6 weeks of therapy. Weekly CBC, SMA-18, sed rate, C-reactive protein. Chandana Acevedo MD
[2016-12-17] MEDS: Insulin Detemir 100 units/ml Vial (Levemir) SC SCH (21:55)
[2016-12-17] MEDS: OLANZapine 5 mg Disintegrating Tab PO SCH (23:04)
[2016-12-18] MEDS: HYDROmorphone 0.5 mg/0.5 ml ISec IVP PRN ×4 (03:18→17:17)
[2016-12-18] MEDS: Sodium Chloride 0.9% 1,000 ML IV SCH ×3 (04:53→22:00)
[2016-12-18] MEDS: Pantoprazole 40 mg EC Tab PO SCH (06:04)
[2016-12-18] MEDS: Piperacillin/Tazobact 3.375 gm 100 ML IVPB SCH ×3 (06:04→17:19)
[2016-12-18 08:06] LABS: ADD MANUAL DIFF? NO
[2016-12-18 08:08] LABS: BASO # 0.02 K/mm3 (0.0-2.0); BASO % 0.4 % (0.0-3.0); EOS # 0.3 (0.0-0.7); EOS % 6.2 % (1.5-5.0); GRAN # 2.47 (1.4-6.5); GRAN % 49.2 % (50.0-68.0); HEMATOCRIT 29.6 % (36.0-48.0); LYMPH # 1.9 (1.2-3.4); LYMPH % 38.2 % (22.0-35.0); MEAN CELL VOLUME 80.2 fL (80.0-105.0); MEAN CORPUSCULAR HEMOGLOBIN 26.3 pg (25.0-35.0); MEAN CORPUSCULAR HGB CONC 32.8 g/dl (31.0-37.0); MEAN PLATELET VOLUME 8.9 fl (7.0-11.0); MONO # 0.3 (0.1-0.6); PLATELET COUNT 177 10^3/uL (120.0-450.0); RED CELL DISTRIBUTION WIDTH 16.2 % (11.5-14.5)
[2016-12-18] MEDS: Insulin Reg-LOW-Coverage SC SCH ×5 (08:13→22:00)
[2016-12-18 08:21] LABS: POTASSIUM 5.2 mmol/L (3.6-5.0)
[2016-12-18 08:22] LABS: BILIRUBIN,TOTAL 0.5 mg/dL (0.2-1.3); CALCIUM 9.2 mg/dL (8.4-10.5)
--- NOTE | 2016-12-18 10:33 | CP.PCM.PN ---
<Timbo Hernandez - Last Filed: 12/18/16 13:21> Subjective - Date & Time of Evaluation Date of Evaluation: 12/18/16 Time of Evaluation: 10:31 - Subjective Subjective: 51 year old female who was seen and evaluated at bedside for left heel ulcer. She is seen AAO x3 and in NAD resting comfortably in be. She states that she has pain at the left heel ulcer. Patient was not seen wearing boots as instructed to offload heels bilaterally. Complains of some chills today but denies n/v/sob/cp or fever. Objective - Vital Signs/Intake and Output Vital Signs (last 24 hours): Temp Pulse Resp BP Pulse Ox 97.6 F 74 20 154/79 H 100 12/18/16 07:30 12/18/16 07:30 12/18/16 07:30 12/18/16 07:30 12/18/16 07:30 Intake and Output: 12/18/16 12/18/16 06:59 18:59 Intake Total 480 Output Total 600 Balance -120 - Medications Medications: Current Medications Albuterol/Ipratropium (Duoneb 3 Mg/0.5 Mg (3 Ml) Ud) 3 ml IH [id number] PRN PRN Reason: Shortness of Breath Atorvastatin Calcium (Lipitor) 20 mg PO DIN [facility] Last Admin: 12/17/16 17:51 Dose: 20 mg Benzocaine/Menthol (Cepacol Sore Throat) 1 mickey MT Q2H PRN PRN Reason: Sore Throat Clopidogrel Bisulfate (Plavix) 75 mg PO DAILY [facility] Last Admin: 12/17/16 10:08 Dose: 75 mg Diphenhydramine HCl (Benadryl) 25 mg PO Q6 PRN PRN Reason: Itching / Pruritus Last Admin: 12/13/16 22:53 Dose: 25 mg Diphenhydramine HCl (Benadryl) 25 mg PO HS PRN PRN Reason: Insomnia Last Admin: 12/17/16 23:01 Dose: 25 mg Docusate Sodium (Colace) 100 mg PO BID PRN PRN Reason: Constipation Gabapentin (Neurontin) 300 mg PO TID [facility] PRN Reason: Protocol Last Admin: 12/17/16 17:51 Dose: 300 mg Heparin Sodium (Porcine) (Heparin) 5,000 units SC Q12 [facility]KKI PRN Reason: Protocol Last Admin: 12/17/16 23:03 Dose: Not Given Hydralazine HCl (Apresoline) 10 mg IVP Q6 PRN PRN Reason: Systolic Blood Pressure Last Admin: 12/16/16 06:40 Dose: 10 mg Hydromorphone HCl (Dilaudid) 0.5 mg IVP Q4H PRN PRN Reason: Pain, severe (8-10) Last Admin: 12/18/16 07:55 Dose: 0.5 mg Piperacillin Sod/Tazobactam Sod (Zosyn 3.375 In Ns 100ml) 100 mls @ 200 mls/hr IVPB Q6 [facility] PRN Reason: Protocol Stop: 12/27/16 12:01 Last Admin: 12/18/16 06:04 Dose: 200 mls/hr Sodium Chloride (Sodium Chloride 0.9%) 1,000 mls @ 100 mls/hr IV .Q10H [facility] Last Admin: 12/18/16 04:53 Dose: Not Given Insulin Detemir (Levemir) 25 unit SC HS [facility] Last Admin: 12/17/16 21:55 Dose: 25 unit Insulin Human Regular (Humulin R Low) 0 units SC ACHS [facility] PRN Reason: Protocol Last Admin: 12/18/16 08:13 Dose: 2 units Linezolid (Zyvox) 600 mg PO BID [facility] PRN Reason: Protocol Stop: 12/29/16 18:01 Last Admin: 12/17/16 17:52 Dose: 600 mg Lorazepam (Ativan) 0.5 mg PO TID PRN; Protocol PRN Reason: Anxiety Last Admin: 12/08/16 10:37 Dose: 0.5 mg Metoclopramide HCl (Reglan) 5 mg IVP Q6 PRN PRN Reason: Nausea/Vomiting Last Admin: 12/08/16 11:40 Dose: 5 mg Metoprolol Tartrate (Lopressor) 25 mg PO BID [facility] Last Admin: 12/17/16 17:50 Dose: 25 mg Morphine Sulfate (Morphine Extended Release Tab) 30 mg PO Q12 [facility] Stop: 12/21/16 23:59 Last Admin: 12/17/16 21:56 Dose: 30 mg Olanzapine (Zyprexa Zydis) 5 mg PO HS [facility] PRN Reason: Protocol Last Admin: 12/17/16 23:04 Dose: Not Given Ondansetron HCl (Zofran Inj) 4 mg IVP Q4 PRN PRN Reason: Nausea/Vomiting Pantoprazole Sodium (Protonix Ec Tab) 40 mg PO 0600 [facility] Last Admin: 12/18/16 06:04 Dose: 40 mg Polyethylene Glycol (Miralax) 17 gm PO DAILY PRN PRN Reason: Constipation Last Admin: 12/13/16 09:12 Dose: 17 gm Trazodone HCl (Desyrel) 50 mg PO HS [facility] Last Admin: 12/17/16 23:02 Dose: Not Given Ziprasidone (Geodon Inj) 20 mg IM Q6 PRN; Protocol PRN Reason: Agitation - Labs Labs: 12/18/16 07:30 12/18/16 07:30 PT 11.6 Seconds (9.9-11.8) 11/25/16 03:00 INR 1.07 (0.93-1.08) 11/25/16 03:00 APTT 24.2 Seconds (23.7-30.8) 11/25/16 03:00 - Constitutional Appears: Well, Non-toxic, No Acute Distress - Extremities Exam Additional comments: Vasc: DP and PT pulses are 1/4 bilaterally, temperature gradient WNL, [employer] < 3 seconds to digits x 5, no pedal edema noted Derm: there is a full thickness ulceration noted to the left heel measuring approximately 3.8x 3.5x0.4 cm with 100% granular base with no probe to bone noted, no purulence, no fluctuance, no drainage noted, (-) probe to bone Neuro: protective pedal sensation is grossly diminished Ortho: tenderness to palpation of the left heel - Neurological Exam Neurological Exam: Alert, Awake, Normal Gait - Psychiatric Exam Psychiatric exam: Agitated, Normal Affect, Normal Mood Assessment and Plan - Assessment and Plan (Free Text) Assessment: 51 year old female with unstageable ulceration to left heel with OM Plan: Patient seen and evaluated at bedside today Discussed plan with Dr. Brady Chart, labs, vitals reviewed: afebrile, no leukocytosis Ulceration cleansed with sterile water, petroleum gauze, ABD and kerlix applied to left heel. Offloading padding applied to heels bilaterally Educated on the importance of wearing offloading boot for healing Pt is stable from podiatry standpoint to be D/C to [facility] for correction abx for + OM Patient to follow up with her surgeon for further wound treatment Podiatry will follow while in house. <Sheridan Brady - Last Filed: 12/23/16 15:14> Objective - Vital Signs/Intake and Output Vital Signs (last 24 hours): Temp Pulse Resp BP Pulse Ox 98 F 89 20 128/85 98 12/23/16 08:17 12/23/16 08:17 12/23/16 08:17 12/23/16 09:58 12/23/16 08:17 Intake and Output: 12/23/16 12/23/16 06:59 18:59 Intake Total 720 320 Output Total 550 Balance 170 320 - Medications Medications: Current Medications Albuterol/Ipratropium (Duoneb 3 Mg/0.5 Mg (3 Ml) Ud) 3 ml IH [id number] PRN PRN Reason: Shortness of Breath Atorvastatin Calcium (Lipitor) 20 mg PO DIN [facility] Last Admin: 12/22/16 17:38 Dose: 20 mg Benzocaine/Menthol (Cepacol Sore Throat) 1 mickey MT Q2H PRN PRN Reason: Sore Throat Last Admin: 12/18/16 17:18 Dose: 1 mickey Clopidogrel Bisulfate (Plavix) 75 mg PO DAILY [facility] Last Admin: 12/23/16 09:58 Dose: 75 mg Diphenhydramine HCl (Benadryl) 25 mg PO Q6 PRN PRN Reason: Itching / Pruritus Last Admin: 12/20/16 09:26 Dose: 25 mg Diphenhydramine HCl (Benadryl) 25 mg PO HS PRN PRN Reason: Insomnia Last Admin: 12/22/16 21:19 Dose: 25 mg Docusate Sodium (Colace) 100 mg PO BID PRN PRN Reason: Constipation Last Admin: 12/19/16 09:27 Dose: 100 mg Gabapentin (Neurontin) 300 mg PO TID [facility]KKI PRN Reason: Protocol Last Admin: 12/23/16 13:24 Dose: 300 mg Heparin Sodium (Porcine) (Heparin) 5,000 units SC Q12 [facility]KK[facility] PRN Reason: Protocol Last Admin: 12/23/16 09:57 Dose: Not Given Hydralazine HCl (Apresoline) 10 mg IVP Q6 PRN PRN Reason: Systolic Blood Pressure Last Admin: 12/16/16 06:40 Dose: 10 mg Hydromorphone HCl (Dilaudid) 0.5 mg IVP Q4H PRN PRN Reason: Pain, severe (8-10) Last Admin: 12/23/16 11:45 Dose: 0.5 mg Piperacillin Sod/Tazobactam Sod (Zosyn 3.375 In Ns 100ml) 100 mls @ 200 mls/hr IVPB Q6 [facility] PRN Reason: Protocol Stop: 01/05/17 12:01 Last Admin: 12/23/16 12:25 Dose: 200 mls/hr Insulin Detemir (Levemir) 25 unit SC HS [facility] Last Admin: 12/22/16 22:05 Dose: 25 unit Insulin Human Regular (Humulin R Low) 0 units SC ACHS [facility] PRN Reason: Protocol Last Admin: 12/23/16 13:21 Dose: Not Given Linezolid (Zyvox) 600 mg PO BID [facility] PRN Reason: Protocol Stop: 12/29/16 18:01 Last Admin: 12/23/16 09:59 Dose: 600 mg Lorazepam (Ativan) 0.5 mg PO TID PRN; Protocol PRN Reason: Anxiety Last Admin: 12/20/16 09:08 Dose: 0.5 mg Metoprolol Tartrate (Lopressor) 25 mg PO BID [facility] Last Admin: 12/23/16 09:58 Dose: 25 mg Morphine Sulfate (Morphine Extended Release Tab) 30 mg PO Q12 [facility] Last Admin: 12/23/16 09:59 Dose: 30 mg Ondansetron HCl (Zofran Inj) 4 mg IVP Q4H PRN PRN Reason: Nausea/Vomiting Pantoprazole Sodium (Protonix Ec Tab) 40 mg PO 0600 [facility] Last Admin: 12/23/16 05:17 Dose: 40 mg Trazodone HCl (Desyrel) 50 mg PO HS [facility] Last Admin: 12/22/16 21:23 Dose: Not Given - Labs Labs: 12/22/16 06:30 12/22/16 06:30 PT 11.6 Seconds (9.9-11.8) 11/25/16 03:00 INR 1.07 (0.93-1.08) 11/25/16 03:00 APTT 24.2 Seconds (23.7-30.8) 11/25/16 03:00 Attending/Attestation - Attestation I have personally seen and examined this patient.: Yes I have fully participated in the care of the patient.: Yes I have reviewed all pertinent clinical information, including history, physical exam and plan: Yes
[2016-12-18] MEDS: Morphine 30 mg SR Tab PO SCH ×2 (10:39→22:00)
--- NOTE | 2016-12-18 12:27 | PN ---
DATE: 12/18/2016 SUBJECTIVE: The patient is in bed, in no acute distress, nontoxic. PHYSICAL EXAMINATION VITAL SIGNS: Temperature is 98, blood pressure is 150/70, respiratory rate of 20. HEENT: Unremarkable. NECK: Supple. LUNGS: Decreased breath sounds. HEART: Normal S1, S2. ABDOMEN: Soft, nontender. LABORATORY DATA: Reveals a white count of 5, hemoglobin of 9. BUN of 39, creatinine of 1.9. Urinalysis is noted. Microbiology is noted. Review of orders, reveals the patient Zosyn and Zyvox are active. Fermín's note is reviewed. ASSESSMENT AND PLAN: This is a 51-year-old female with past medical history of diabetes mellitus, hypertension, dyslipidemia, left foot osteomyelitis with MRSA and resistant Proteus on day #21 Zyvox and Zosyn. Will need 4 to 6 weeks of antibiotics. Follow weekly Sed rate, C-reactive protein, CBC, SMA-18. Chandana Acevedo MD
--- NOTE | 2016-12-18 19:59 | CP.PCM.PN ---
<TRES ARTHUR - Last Filed: 12/18/16 19:51> Subjective - Date & Time of Evaluation Date of Evaluation: 12/18/16 Time of Evaluation: 11:40 - Subjective Subjective: Medicine Progress Note: Pt seen and assessed at bedside. Pt had no new complaints. Pt denied fever, headache, shortness of breath, chest pain, palpitations, N/V, abdominal pain, diarrhea or constipation. Objective - Vital Signs/Intake and Output Vital Signs (last 24 hours): Temp Pulse Resp BP Pulse Ox 98 F 70 20 124/76 99 12/18/16 16:00 12/18/16 17:16 12/18/16 16:00 12/18/16 17:16 12/18/16 16:00 Intake and Output: 12/18/16 12/19/16 18:59 06:59 Intake Total 720 Balance 720 - Medications Medications: Current Medications Albuterol/Ipratropium (Duoneb 3 Mg/0.5 Mg (3 Ml) Ud) 3 ml IH [id number] PRN PRN Reason: Shortness of Breath Atorvastatin Calcium (Lipitor) 20 mg PO DIN [facility] Last Admin: 12/18/16 17:16 Dose: 20 mg Benzocaine/Menthol (Cepacol Sore Throat) 1 mickey MT Q2H PRN PRN Reason: Sore Throat Last Admin: 12/18/16 17:18 Dose: 1 mickey Clopidogrel Bisulfate (Plavix) 75 mg PO DAILY [facility] Last Admin: 12/18/16 10:39 Dose: 75 mg Diphenhydramine HCl (Benadryl) 25 mg PO Q6 PRN PRN Reason: Itching / Pruritus Last Admin: 12/13/16 22:53 Dose: 25 mg Diphenhydramine HCl (Benadryl) 25 mg PO HS PRN PRN Reason: Insomnia Last Admin: 12/17/16 23:01 Dose: 25 mg Docusate Sodium (Colace) 100 mg PO BID PRN PRN Reason: Constipation Gabapentin (Neurontin) 300 mg PO TID [facility] PRN Reason: Protocol Last Admin: 12/18/16 17:17 Dose: 300 mg Heparin Sodium (Porcine) (Heparin) 5,000 units SC Q12 [facility] PRN Reason: Protocol Last Admin: 12/18/16 10:40 Dose: Not Given Hydralazine HCl (Apresoline) 10 mg IVP Q6 PRN PRN Reason: Systolic Blood Pressure Last Admin: 12/16/16 06:40 Dose: 10 mg Hydromorphone HCl (Dilaudid) 0.5 mg IVP Q4H PRN PRN Reason: Pain, severe (8-10) Last Admin: 12/18/16 17:17 Dose: 0.5 mg Piperacillin Sod/Tazobactam Sod (Zosyn 3.375 In Ns 100ml) 100 mls @ 200 mls/hr IVPB Q6 [facility] PRN Reason: Protocol Stop: 12/27/16 12:01 Last Admin: 12/18/16 17:19 Dose: 200 mls/hr Sodium Chloride (Sodium Chloride 0.9%) 1,000 mls @ 100 mls/hr IV .Q10H [facility] Last Admin: 12/18/16 04:53 Dose: Not Given Insulin Detemir (Levemir) 25 unit SC HS [facility] Last Admin: 12/17/16 21:55 Dose: 25 unit Insulin Human Regular (Humulin R Low) 0 units SC ACHS [facility] PRN Reason: Protocol Last Admin: 12/18/16 17:18 Dose: Not Given Linezolid (Zyvox) 600 mg PO BID [facility] PRN Reason: Protocol Stop: 12/29/16 18:01 Last Admin: 12/18/16 17:17 Dose: 600 mg Lorazepam (Ativan) 0.5 mg PO TID PRN; Protocol PRN Reason: Anxiety Last Admin: 12/08/16 10:37 Dose: 0.5 mg Metoclopramide HCl (Reglan) 5 mg IVP Q6 PRN PRN Reason: Nausea/Vomiting Last Admin: 12/08/16 11:40 Dose: 5 mg Metoprolol Tartrate (Lopressor) 25 mg PO BID [facility] Last Admin: 12/18/16 17:16 Dose: 25 mg Morphine Sulfate (Morphine Extended Release Tab) 30 mg PO Q12 [facility] Stop: 12/21/16 23:59 Last Admin: 12/18/16 10:39 Dose: 30 mg Olanzapine (Zyprexa Zydis) 5 mg PO HS [facility] PRN Reason: Protocol Last Admin: 12/17/16 23:04 Dose: Not Given Pantoprazole Sodium (Protonix Ec Tab) 40 mg PO 0600 [facility] Last Admin: 12/18/16 06:04 Dose: 40 mg Polyethylene Glycol (Miralax) 17 gm PO DAILY PRN PRN Reason: Constipation Last Admin: 12/13/16 09:12 Dose: 17 gm Trazodone HCl (Desyrel) 50 mg PO HS [facility] Last Admin: 12/17/16 23:02 Dose: Not Given - Labs Labs: 12/18/16 07:30 12/18/16 07:30 PT 11.6 Seconds (9.9-11.8) 11/25/16 03:00 INR 1.07 (0.93-1.08) 11/25/16 03:00 APTT 24.2 Seconds (23.7-30.8) 11/25/16 03:00 - Constitutional Appears: No Acute Distress - Head Exam Head Exam: NORMAL INSPECTION, NORMOCEPHALIC - Eye Exam Eye Exam: EOMI - ENT Exam ENT Exam: Mucous Membranes Moist, Normal Exam - Neck Exam Neck Exam: Full ROM - Respiratory Exam Respiratory Exam: Clear to Ausculation Bilateral, NORMAL BREATHING PATTERN. absent: Rales, Rhonchi, Wheezes, Respiratory Distress - Cardiovascular Exam Cardiovascular Exam: REGULAR RHYTHM, RRR, +S1, +S2. absent: Diastolic murmur, Murmur - GI/Abdominal Exam GI & Abdominal Exam: Normal Bowel Sounds. absent: Distended, Firm, Guarding, Tenderness, Organomegaly - Extremities Exam Extremities Exam: Normal Capillary Refill. absent: Calf Tenderness, Pedal Edema Additional comments: L heel wound dressing clean dry and intact - Neurological Exam Neurological Exam: Alert, Awake, Oriented x3 - Psychiatric Exam Psychiatric exam: Normal Affect, Normal Mood - Skin Skin Exam: Dry, Intact, Normal Color, Warm Assessment and Plan - Assessment and Plan (Free Text) Assessment: Ms. Kerr is a 51 yo female with a past medical history of SD, hyperlipidemia, diabetes, HTN, CKD, asthma, DVT, uterine cancer, lung cancer and thromboembolic disease S/P left heel osteomyelitis debridement who was admitted for evaluation and treatment of chest pain and left heel pain. Plan: 1. Osteomyelitis of L Calcaneus -ID consulted, all recommendations appreciated -wound cultures showed MRSA and amikacin sensitive proteus mirabilis -4-6 weeks of Zosyn and 3-4 weeks of Zyvox with weekly ESR, CRP, CBC, CMP. Will consider PO antibiotics if these trend downward, per ID -cont with Zosyn and Zyvox (Day 22), per ID -pain control with PO morphine ER and IV dilaudid -podiatry consulted, all recommendations appreciated -offloading boot to L foot, per podiatry -cont PT/OT; suggest [facility] placement upon DC -SW/case management working on acute care placement; discharge from hospital delayed due to placement issues 2. Hyperkalemia - K+ at 5.2 on 12/18 (5.3 on 12/17) - creatinine 1.9 on 12/18 (stable from 12/17) - patient still refusing recommended IVF and EKG - will cont to monitor 3. Vaginal Discharge - no reports of bloody discharge per nursing staff - stable hemoglobin and hematocrit - gonorrhea, chlamydia, BV and trichomonas cultures pending - will cont to monitor and consult [employer] [facility] [employer] when clinically appropriate 4. Dysphagia -will continue to monitor at this time and obtain swallowing study when clinically indicated 5. Chronic Pancreatitis -recommended IVF -cont with humilin SSI and levemir 25u HS -pain control with IV morphine and dilaudid -heart healthy diet with low fat -will cont to monitor 6. Delirium -psychiatry following, all recommendations appreciated -psychiatry notes improvement in patients communication skills -cont zyprexa, PRN Risperidone and PRN Ativan 7. Vision Changes -ophthalmology reconsulted on 12/17; agreed to see patient on 12/19 -will assist pt in scheduling upon discharge, as per original ophthalmology recommendations -will cont to monitor 8. Constipation - PRN miralax - will cont to monitor for diarrhea 9. Thyroid Nodule -TSH wnl -asymptomatic at this time -will continue to monitor 10. Anemia -Iron studies within normal limits -B12 and Folate WNL -continuing to monitor with daily CBC's 11. Asthma -Duoneb q4 PRN 12. History of Medication Noncompliance - patient noticeably more compliant with medication therapy - will continue to educate patient on the importance of medication compliance with all prescribed medications whenever appropriate 13. History of Heart, Lung, and Uterine Cancer - self reported by patient; no written record of illness at [facility] or [facility] - noncontrast CT of chest/abdomen/ pelvis showed no acute disease processes in heart, lung or uterus - will continue to monitor clinically and consult hem/onc when clinically appropriate 14. GI/DVT prophylaxis -protonix/ SCD Patient seen and case discussed with attending physician, Dr. Woodward. <Mimi Woodward MD - Last Filed: 12/19/16 15:36> Objective - Vital Signs/Intake and Output Vital Signs (last 24 hours): Temp Pulse Resp BP Pulse Ox 98 F 70 20 124/76 99 12/18/16 16:00 12/18/16 17:16 12/18/16 16:00 12/18/16 17:16 12/18/16 16:00 Intake and Output: 12/19/16 12/19/16 06:59 18:59 Intake Total 660 Balance 660 - Medications Medications: Current Medications Albuterol/Ipratropium (Duoneb 3 Mg/0.5 Mg (3 Ml) Ud) 3 ml IH [id number] PRN PRN Reason: Shortness of Breath Atorvastatin Calcium (Lipitor) 20 mg PO DIN [facility] Last Admin: 12/18/16 17:16 Dose: 20 mg Benzocaine/Menthol (Cepacol Sore Throat) 1 mickey MT Q2H PRN PRN Reason: Sore Throat Last Admin: 12/18/16 17:18 Dose: 1 mickey Clopidogrel Bisulfate (Plavix) 75 mg PO DAILY [facility] Last Admin: 12/19/16 09:27 Dose: 75 mg Diphenhydramine HCl (Benadryl) 25 mg PO Q6 PRN PRN Reason: Itching / Pruritus Last Admin: 12/19/16 00:39 Dose: 25 mg Diphenhydramine HCl (Benadryl) 25 mg PO HS PRN PRN Reason: Insomnia Last Admin: 12/17/16 23:01 Dose: 25 mg Docusate Sodium (Colace) 100 mg PO BID PRN PRN Reason: Constipation Last Admin: 12/19/16 09:27 Dose: 100 mg Gabapentin (Neurontin) 300 mg PO TID [facility] PRN Reason: Protocol Last Admin: 12/19/16 14:14 Dose: 300 mg Heparin Sodium (Porcine) (Heparin) 5,000 units SC Q12 [facility] PRN Reason: Protocol Last Admin: 12/19/16 09:27 Dose: 5,000 units Hydralazine HCl (Apresoline) 10 mg IVP Q6 PRN PRN Reason: Systolic Blood Pressure Last Admin: 12/16/16 06:40 Dose: 10 mg Hydromorphone HCl (Dilaudid) 0.5 mg IVP Q4H PRN PRN Reason: Pain, severe (8-10) Last Admin: 12/19/16 14:14 Dose: 0.5 mg Piperacillin Sod/Tazobactam Sod (Zosyn 3.375 In Ns 100ml) 100 mls @ 200 mls/hr IVPB Q6 [facility] PRN Reason: Protocol Stop: 12/27/16 12:01 Last Admin: 12/19/16 14:16 Dose: 200 mls/hr Sodium Chloride (Sodium Chloride 0.9%) 1,000 mls @ 100 mls/hr IV .Q10H [facility] Last Admin: 12/18/16 22:00 Dose: Not Given Insulin Detemir (Levemir) 25 unit SC [facility] Last Admin: 12/19/16 00:40 Dose: 25 unit Insulin Human Regular (Humulin R Low) 0 units SC ACHS [facility] PRN Reason: Protocol Last Admin: 12/19/16 11:30 Dose: Not Given Linezolid (Zyvox) 600 mg PO BID [facility] PRN Reason: Protocol Stop: 12/29/16 18:01 Last Admin: 12/19/16 09:28 Dose: 600 mg Lorazepam (Ativan) 0.5 mg PO TID PRN; Protocol PRN Reason: Anxiety Last Admin: 12/08/16 10:37 Dose: 0.5 mg Metoprolol Tartrate (Lopressor) 25 mg PO BID [facility] Last Admin: 12/19/16 09:28 Dose: 25 mg Morphine Sulfate (Morphine Extended Release Tab) 30 mg PO Q12 [facility] Stop: 12/21/16 23:59 Last Admin: 12/19/16 11:04 Dose: 30 mg Ondansetron HCl (Zofran Inj) 4 mg IVP Q4H PRN PRN Reason: Nausea/Vomiting Pantoprazole Sodium (Protonix Ec Tab) 40 mg PO 0600 [facility] Last Admin: 12/19/16 05:06 Dose: 40 mg Polyethylene Glycol (Miralax) 17 gm PO DAILY PRN PRN Reason: Constipation Last Admin: 12/13/16 09:12 Dose: 17 gm Trazodone HCl (Desyrel) 50 mg PO [facility] Last Admin: 12/18/16 22:00 Dose: Not Given - Labs Labs: 12/19/16 06:45 12/19/16 06:45 PT 11.6 Seconds (9.9-11.8) 11/25/16 03:00 INR 1.07 (0.93-1.08) 11/25/16 03:00 APTT 24.2 Seconds (23.7-30.8) 11/25/16 03:00 Attending/Attestation - Attestation I have personally seen and examined this patient.: Yes I have fully participated in the care of the patient.: Yes I have reviewed all pertinent clinical information, including history, physical exam and plan: Yes Notes (Text): 12/19/16 15:33 Patient seen and examined with resident. 51 year old female with past medical history of SD, diabetes, hypertension, chronic heel ulcer with osteomylitis of heel .Currently on IV zosyn and zyvox for Left heel osteomyelitis, need total 6 weeks of antibiotics.Patient also has CKD, creatinin is 1.9, unchanges, Patient is refusiong IV fluid, the issue was discussed in detail with her.She is alert, awake and oriented at this time .Patient was giving history of uterine bleeding but she is refusing for pelvic examination and vaginal cultures. Patient is awaiting for placement. Prognosis is guarded. Management plan was discussed in detail with patient.
[2016-12-18] MEDS: OLANZapine 5 mg Disintegrating Tab PO SCH (22:00)
[2016-12-19] MEDS: HYDROmorphone 0.5 mg/0.5 ml ISec IVP PRN ×5 (00:39→18:50)
[2016-12-19] MEDS: Insulin Detemir 100 units/ml Vial (Levemir) SC SCH ×2 (00:40→22:48)
[2016-12-19] MEDS: Piperacillin/Tazobact 3.375 gm 100 ML IVPB SCH ×4 (00:41→18:50)
[2016-12-19] MEDS: Pantoprazole 40 mg EC Tab PO SCH (05:06)
[2016-12-19 07:14] LABS: ADD MANUAL DIFF? NO
[2016-12-19 07:18] LABS: BASO # 0.01 K/mm3 (0.0-2.0); BASO % 0.2 % (0.0-3.0); EOS # 0.3 (0.0-0.7); EOS % 6.4 % (1.5-5.0); GRAN # 2.19 (1.4-6.5); GRAN % 45.2 % (50.0-68.0); HEMATOCRIT 26.2 % (36.0-48.0); LYMPH # 2.1 (1.2-3.4); LYMPH % 43.2 % (22.0-35.0); MEAN CELL VOLUME 79.9 fL (80.0-105.0); MEAN CORPUSCULAR HEMOGLOBIN 26.5 pg (25.0-35.0); MEAN CORPUSCULAR HGB CONC 33.2 g/dl (31.0-37.0); MEAN PLATELET VOLUME 8.9 fl (7.0-11.0); MONO # 0.2 (0.1-0.6); PLATELET COUNT 152 10^3/uL (120.0-450.0); WHITE BLOOD COUNT 4.8 10^3/ul (4.5-11.0)
[2016-12-19] MEDS: Insulin Reg-LOW-Coverage SC SCH ×3 (08:00→22:32)
[2016-12-19 08:18] LABS: ALB/GLOB RATIO 0.9 (1.1-1.8); BILIRUBIN,TOTAL 0.4 mg/dL (0.2-1.3); POTASSIUM 5.1 mmol/L (3.6-5.0); TOTAL PROTEIN 6.5 g/dL (5.8-8.3)
[2016-12-19] MEDS: Morphine 30 mg SR Tab PO SCH ×2 (11:04→22:46)
--- NOTE | 2016-12-19 13:10 | CP.PCM.PCO ---
Addendum Addendum: 12/19/16 13:06 pt was seen and examined pt is calm, cooperative, doing better from the psychiatric stand point. pt was on PRN Geodon was given only twice when pt was in delirium stage, last dose was on 12/07/16 pt is participating in tx, compliant with medications, no behavioral incidents at times needy, but overall better. pt does not need to be on scheduled dose of geodon pt would benefit from f/u with psychiatrist at [facility] pt denied v/a/t hallucinations pt denied thoughts of harming self or others pt is not in imminent danger to self or others this advertising copywriter signed off 12/11/16 thank you
--- NOTE | 2016-12-19 13:40 | CON ---
DATE: 12/18/2016 HISTORY OF PRESENT ILLNESS: The patient is a 51-year-old female who was admitted for an infection in her ankle. She reports that during her stay, her vision has been getting worse. She also reports that she had seen an eye doctor a couple of months ago and was diagnosed with the cataracts and potentially diabetic retinopathy inside her eyes. Her vision today is hand motion in both eyes. EYES: Her pupils are equal and reactive to light. Her corneas are clear. Her anterior chamber is clear. She does have very dense cataracts in both eyes, which are hypermature. There is no view to the back of her eye. There is no way to determine if she has any diabetic retinopathy with this exam. ASSESSMENT: Hypermature cataracts, both eyes. RECOMMENDATIONS: Once the patient is discharged, she can be seen in the office to be evaluated for her cataracts. I informed the patient that the reason for her decreased vision is the worsening of her cataracts. Once she is discharge and make an appointment at [phone] or if you have any questions again call [phone]. Everton Benavides MD MTDD
--- NOTE | 2016-12-19 14:20 | PN ---
DATE: 12/19/2016 SUBJECTIVE: The patient seen in bed, no acute distress and nontoxic. PHYSICAL EXAMINATION VITAL SIGNS: Temperature is 98, blood pressure is 120/60, and respiratory rate of 20. HEENT: Unremarkable. NECK: Supple. LUNGS: Decreased breath sounds. HEART: Normal S1 and S2. ABDOMEN: Soft and nontender. LABORATORY DATA: Examination reveals a white count of 4.8, hemoglobin of 8, and platelets of 152. Bun of 41, and creatinine of 1.9. Urinalysis is noted and left foot culture is noted. Review of orders reveals the patient to be on Zosyn and Zyvox. note is reviewed. ASSESSMENT AND PLAN: This is a 51-year-old female with past history of the diabetes mellitus, hypertension, dyslipidemia, left foot osteomyelitis with methicillin-resistant Staphylococcus aureus and resistant Proteus on day number Last C-reactive protein was reported to be at 1.78 on the 12/12/2016 a week ago. We will repeat a sedimentation rate and C-reactive protein unless sedimentation rate is reported to be in 70 on the . Chandana Acevedo MD
--- NOTE | 2016-12-19 19:56 | CP.PCM.PN ---
<TRES ARTHUR - Last Filed: 12/19/16 21:26> Subjective - Date & Time of Evaluation Date of Evaluation: 12/19/16 Time of Evaluation: 10:00 - Subjective Subjective: Medicine Progress Note: Pt seen and assessed at bedside. Pt had no new complaints at this visit. Pt stated that she was looking forward to what ophthalmology was going to tell her. Pt denied fever, headache, shortness of breath, chest pain, palpitations, N/V, abdominal pain, diarrhea or constipation. Objective - Vital Signs/Intake and Output Vital Signs (last 24 hours): Temp Pulse Resp BP Pulse Ox 98 F 70 20 151/82 H 99 12/18/16 16:00 12/18/16 17:16 12/18/16 16:00 12/19/16 18:00 12/18/16 16:00 - Medications Medications: Current Medications Albuterol/Ipratropium (Duoneb 3 Mg/0.5 Mg (3 Ml) Ud) 3 ml IH [id number] PRN PRN Reason: Shortness of Breath Atorvastatin Calcium (Lipitor) 20 mg PO DIN [facility] Last Admin: 12/19/16 18:49 Dose: 20 mg Benzocaine/Menthol (Cepacol Sore Throat) 1 mickey MT Q2H PRN PRN Reason: Sore Throat Last Admin: 12/18/16 17:18 Dose: 1 mickey Clopidogrel Bisulfate (Plavix) 75 mg PO DAILY [facility] Last Admin: 12/19/16 09:27 Dose: 75 mg Diphenhydramine HCl (Benadryl) 25 mg PO Q6 PRN PRN Reason: Itching / Pruritus Last Admin: 12/19/16 18:50 Dose: 25 mg Diphenhydramine HCl (Benadryl) 25 mg PO HS PRN PRN Reason: Insomnia Last Admin: 12/17/16 23:01 Dose: 25 mg Docusate Sodium (Colace) 100 mg PO BID PRN PRN Reason: Constipation Last Admin: 12/19/16 09:27 Dose: 100 mg Gabapentin (Neurontin) 300 mg PO TID [facility] PRN Reason: Protocol Last Admin: 12/19/16 18:54 Dose: Not Given Heparin Sodium (Porcine) (Heparin) 5,000 units SC Q12 [facility] PRN Reason: Protocol Last Admin: 12/19/16 09:27 Dose: 5,000 units Hydralazine HCl (Apresoline) 10 mg IVP Q6 PRN PRN Reason: Systolic Blood Pressure Last Admin: 12/16/16 06:40 Dose: 10 mg Hydromorphone HCl (Dilaudid) 0.5 mg IVP Q4H PRN PRN Reason: Pain, severe (8-10) Last Admin: 12/19/16 18:50 Dose: 0.5 mg Piperacillin Sod/Tazobactam Sod (Zosyn 3.375 In Ns 100ml) 100 mls @ 200 mls/hr IVPB Q6 [facility] PRN Reason: Protocol Stop: 12/27/16 12:01 Last Admin: 12/19/16 18:50 Dose: 200 mls/hr Sodium Chloride (Sodium Chloride 0.9%) 1,000 mls @ 100 mls/hr IV .Q10H [facility] Last Admin: 12/18/16 22:00 Dose: Not Given Insulin Detemir (Levemir) 25 unit SC HS [facility] Last Admin: 12/19/16 00:40 Dose: 25 unit Insulin Human Regular (Humulin R Low) 0 units SC ACHS [facility] PRN Reason: Protocol Last Admin: 12/19/16 11:30 Dose: Not Given Linezolid (Zyvox) 600 mg PO BID [facility] PRN Reason: Protocol Stop: 12/29/16 18:01 Last Admin: 12/19/16 18:49 Dose: 600 mg Lorazepam (Ativan) 0.5 mg PO TID PRN; Protocol PRN Reason: Anxiety Last Admin: 12/08/16 10:37 Dose: 0.5 mg Metoprolol Tartrate (Lopressor) 25 mg PO BID [facility] Last Admin: 12/19/16 18:50 Dose: 25 mg Morphine Sulfate (Morphine Extended Release Tab) 30 mg PO Q12 [facility] Stop: 12/21/16 23:59 Last Admin: 12/19/16 11:04 Dose: 30 mg Ondansetron HCl (Zofran Inj) 4 mg IVP Q4H PRN PRN Reason: Nausea/Vomiting Pantoprazole Sodium (Protonix Ec Tab) 40 mg PO 0600 [facility] Last Admin: 12/19/16 05:06 Dose: 40 mg Polyethylene Glycol (Miralax) 17 gm PO DAILY PRN PRN Reason: Constipation Last Admin: 12/13/16 09:12 Dose: 17 gm Trazodone HCl (Desyrel) 50 mg PO HS [facility] Last Admin: 12/18/16 22:00 Dose: Not Given - Labs Labs: 12/19/16 06:45 12/19/16 06:45 PT 11.6 Seconds (9.9-11.8) 11/25/16 03:00 INR 1.07 (0.93-1.08) 11/25/16 03:00 APTT 24.2 Seconds (23.7-30.8) 11/25/16 03:00 - Constitutional Appears: No Acute Distress - Head Exam Head Exam: NORMAL INSPECTION, NORMOCEPHALIC - Eye Exam Eye Exam: EOMI, Normal appearance - ENT Exam ENT Exam: Mucous Membranes Moist, Normal Exam - Neck Exam Neck Exam: Full ROM - Respiratory Exam Respiratory Exam: Clear to Ausculation Bilateral, NORMAL BREATHING PATTERN. absent: Rales, Rhonchi, Wheezes, Respiratory Distress - Cardiovascular Exam Cardiovascular Exam: REGULAR RHYTHM, RRR, +S1, +S2 - GI/Abdominal Exam GI & Abdominal Exam: Normal Bowel Sounds. absent: Distended, Firm, Tenderness - Extremities Exam Extremities Exam: absent: Calf Tenderness, Pedal Edema Additional comments: L heel wound dressing clean dry and intact - Neurological Exam Neurological Exam: Alert, Awake, Oriented x3 - Psychiatric Exam Psychiatric exam: Normal Affect, Normal Mood - Skin Skin Exam: Dry, Intact, Normal Color, Warm Assessment and Plan - Assessment and Plan (Free Text) Assessment: Ms. Kerr is a 51 yo female with a past medical history of AL, hyperlipidemia, diabetes, HTN, CKD, asthma, DVT, uterine cancer, lung cancer and thromboembolic disease S/P left heel osteomyelitis debridement who was admitted for evaluation and treatment of chest pain and left heel pain. Plan: 1. Osteomyelitis of L Calcaneus -ID consulted, all recommendations appreciated -wound cultures showed MRSA and amikacin sensitive proteus mirabilis -4-6 weeks of Zosyn and 3-4 weeks of Zyvox with weekly ESR, CRP, CBC, CMP. 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 Hyperkalemia - K+ at 5.1 on 12/19 (5.2 on 12/18) - creatinine 1.9 on 12/19 (stable from 12/18) - patient still refusing recommended IVF and EKG - will cont to monitor 3. Vaginal Discharge - no reports of bloody discharge per nursing staff -currently refusing pelvic exam - stable hemoglobin and hematocrit - gonorrhea, chlamydia, BV and trichomonas cultures pending - will cont to monitor and consult [employer] when clinically appropriate 4. Dysphagia -will continue to monitor at this time and obtain swallowing study when clinically indicated 5. Chronic Pancreatitis -recommended IVF -cont with humilin SSI and levemir 25u HS -pain control with IV morphine and dilaudid -heart healthy diet with low fat -will cont to monitor 6. Delirium -psychiatry signed off of patient on 12/19; all recommendations appreciated -psychiatry notes improvement in patients communication skills and emotional lability -cont zyprexa, PRN Risperidone and PRN Ativan 7. Cataracts -ophthalmology reconsulted on 12/17 and states that they will see patient on outpatient basis upon discharge -will assist pt in scheduling upon discharge, as per original ophthalmology recommendations -will cont to monitor 8. Constipation - PRN miralax - will cont to monitor for diarrhea 9. Thyroid Nodule -TSH wnl -asymptomatic at this time -will continue to monitor 10. Anemia -Iron studies within normal limits -B12 and Folate WNL -continuing to monitor with daily CBC's 11. Asthma -Duoneb q4 PRN 12. History of Medication Noncompliance - patient noticeably more compliant with medication therapy - will continue to educate patient on the importance of medication compliance with all prescribed medications whenever appropriate 13. History of Heart, Lung, and Uterine Cancer - self reported by patient; no written record of illness at [facility] [place] or [facility] - noncontrast CT of chest/abdomen/ pelvis showed no acute disease processes in heart, lung or uterus - will continue to monitor clinically and consult hem/onc when clinically appropriate 14. GI/DVT prophylaxis -protonix/ SCD Patient seen and case discussed with attending physician, Dr. Woodward. <Crissy HER,Mimi - Last Filed: 12/20/16 12:26> Objective - Vital Signs/Intake and Output Vital Signs (last 24 hours): Temp Pulse Resp BP Pulse Ox 98.4 F 80 20 130/70 95 12/20/16 07:41 12/20/16 09:09 12/20/16 07:41 12/20/16 09:09 12/20/16 07:41 Intake and Output: 12/20/16 12/20/16 06:59 18:59 Intake Total 920 Output Total 750 Balance 170 - Medications Medications: Current Medications Albuterol/Ipratropium (Duoneb 3 Mg/0.5 Mg (3 Ml) Ud) 3 ml IH [id number] PRN PRN Reason: Shortness of Breath Atorvastatin Calcium (Lipitor) 20 mg PO DIN [facility] Last Admin: 12/19/16 18:49 Dose: 20 mg Benzocaine/Menthol (Cepacol Sore Throat) 1 mickey MT Q2H PRN PRN Reason: Sore Throat Last Admin: 12/18/16 17:18 Dose: 1 mickey Clopidogrel Bisulfate (Plavix) 75 mg PO DAILY [facility] Last Admin: 12/20/16 09:08 Dose: 75 mg Diphenhydramine HCl (Benadryl) 25 mg PO Q6 PRN PRN Reason: Itching / Pruritus Last Admin: 12/20/16 09:26 Dose: 25 mg Diphenhydramine HCl (Benadryl) 25 mg PO HS PRN PRN Reason: Insomnia Last Admin: 12/20/16 01:04 Dose: 25 mg Docusate Sodium (Colace) 100 mg PO BID PRN PRN Reason: Constipation Last Admin: 12/19/16 09:27 Dose: 100 mg Gabapentin (Neurontin) 300 mg PO TID [facility] PRN Reason: Protocol Last Admin: 12/20/16 09:08 Dose: 300 mg Heparin Sodium (Porcine) (Heparin) 5,000 units SC Q12 [facility] PRN Reason: Protocol Last Admin: 12/19/16 22:30 Dose: Not Given Hydralazine HCl (Apresoline) 10 mg IVP Q6 PRN PRN Reason: Systolic Blood Pressure Last Admin: 12/16/16 06:40 Dose: 10 mg Hydromorphone HCl (Dilaudid) 0.5 mg IVP Q4H PRN PRN Reason: Pain, severe (8-10) Last Admin: 12/20/16 09:18 Dose: 0.5 mg Piperacillin Sod/Tazobactam Sod (Zosyn 3.375 In Ns 100ml) 100 mls @ 200 mls/hr IVPB Q6 [facility] PRN Reason: Protocol Stop: 12/27/16 12:01 Last Admin: 12/20/16 05:07 Dose: 200 mls/hr Sodium Chloride (Sodium Chloride 0.9%) 1,000 mls @ 100 mls/hr IV .Q10H [facility] Last Admin: 12/18/16 22:00 Dose: Not Given Insulin Detemir (Levemir) [address] [facility] Last Admin: 12/19/16 22:48 Dose: 25 unit Insulin Human Regular (Humulin R Low) 0 units SC ACHS [facility] PRN Reason: Protocol Last Admin: 12/20/16 08:19 Dose: Not Given Linezolid (Zyvox) 600 mg PO BID [facility] PRN Reason: Protocol Stop: 12/29/16 18:01 Last Admin: 12/20/16 09:22 Dose: 600 mg Lorazepam (Ativan) 0.5 mg PO TID PRN; Protocol PRN Reason: Anxiety Last Admin: 12/20/16 09:08 Dose: 0.5 mg Metoprolol Tartrate (Lopressor) 25 mg PO BID [facility] Last Admin: 12/20/16 09:09 Dose: 25 mg Morphine Sulfate (Morphine Extended Release Tab) 30 mg PO Q12 [facility] Stop: 12/21/16 23:59 Last Admin: 12/20/16 09:09 Dose: 30 mg Ondansetron HCl (Zofran Inj) 4 mg IVP Q4H PRN PRN Reason: Nausea/Vomiting Pantoprazole Sodium (Protonix Ec Tab) 40 mg PO 0600 [facility] Last Admin: 12/20/16 05:07 Dose: 40 mg Polyethylene Glycol (Miralax) 17 gm PO DAILY PRN PRN Reason: Constipation Last Admin: 12/13/16 09:12 Dose: 17 gm Trazodone HCl (Desyrel) [address] [facility] Last Admin: 12/19/16 22:30 Dose: Not Given - Labs Labs: 12/20/16 06:00 12/20/16 06:00 PT 11.6 Seconds (9.9-11.8) 11/25/16 03:00 INR 1.07 (0.93-1.08) 11/25/16 03:00 APTT 24.2 Seconds (23.7-30.8) 11/25/16 03:00 Attending/Attestation - Attestation I have personally seen and examined this patient.: Yes I have fully participated in the care of the patient.: Yes I have reviewed all pertinent clinical information, including history, physical exam and plan: Yes Notes (Text): 12/20/16 12:22 Patient seen and examined with resident. 51 year old female with PMH of AL, diabetes, hypertension, chronic heel ulcer , chronic OM on IV zosyn and zyvox for Left heel osteomyelitis, need total 6 weeks of antibiotics.Patient also has CKD, creatinin is 1.9, stable , also has mild hyperkalemia which is also stable , Patient is refusing IV fluid and EKG, the issue was discussed in detail with her.She is alert, awake and oriented at this time .Patient was giving history of uterine bleeding but she is refusing for pelvic examination and vaginal cultures. Patient was also evaluated by Opthalmology and is found to have Cataract, will need out patient surgery. Patient is stable at her base line. Patient is awaiting for placement. Prognosis is guarded. Management plan was discussed in detail with patient.
[2016-12-20] MEDS: HYDROmorphone 0.5 mg/0.5 ml ISec IVP PRN ×6 (01:04→21:55)
[2016-12-20] MEDS: Pantoprazole 40 mg EC Tab PO SCH (05:07)
[2016-12-20] MEDS: Piperacillin/Tazobact 3.375 gm 100 ML IVPB SCH ×4 (05:07→18:19)
[2016-12-20 06:13] LABS: ADD MANUAL DIFF? NO
[2016-12-20 06:16] LABS: BASO # 0.02 K/mm3 (0.0-2.0); BASO % 0.4 % (0.0-3.0); EOS # 0.3 (0.0-0.7); EOS % 5.3 % (1.5-5.0); GRAN # 1.89 (1.4-6.5); GRAN % 40.4 % (50.0-68.0); HEMATOCRIT 25.2 % (36.0-48.0); LYMPH # 2.2 (1.2-3.4); LYMPH % 47.3 % (22.0-35.0); MEAN CORPUSCULAR HEMOGLOBIN 26.3 pg (25.0-35.0); MEAN CORPUSCULAR HGB CONC 33.3 g/dl (31.0-37.0); MEAN PLATELET VOLUME 8.3 fl (7.0-11.0); MONO # 0.3 (0.1-0.6); MONO % 6.6 % (1.0-6.0); PLATELET COUNT 122 10^3/uL (120.0-450.0); RED CELL DISTRIBUTION WIDTH 15.7 % (11.5-14.5); WHITE BLOOD COUNT 4.7 10^3/ul (4.5-11.0)
[2016-12-20 06:28] LABS: BILIRUBIN,TOTAL 0.4 mg/dL (0.2-1.3); CALCIUM 8.8 mg/dL (8.4-10.5); POTASSIUM 4.6 mmol/L (3.6-5.0); TOTAL PROTEIN 6.4 g/dL (5.8-8.3)
[2016-12-20] MEDS: Insulin Reg-LOW-Coverage SC SCH ×5 (08:19→21:50)
[2016-12-20] MEDS: Morphine 30 mg SR Tab PO SCH ×2 (09:09→21:12)
--- NOTE | 2016-12-20 11:53 | CP.PCM.PN ---
<Fatimah Brasher - Last Filed: 12/20/16 11:49> Subjective - Date & Time of Evaluation Date of Evaluation: 12/20/16 Time of Evaluation: 09:00 - Subjective Subjective: 51 y/o female seen and evaluated at bedside with attending Dr. Hughes for left heel ulcer. She is seen AAOx3 and in NAD. Pt appears to be resting comfortably in bed. She states that she is tender to touch on her left heel. Patient was not seen wearing boots as instructed to offload heels bilaterally. Pt denies of any recent F/N/V/C/SOB. Pt denies of any acute overnight events. Denies of any new pedal complains Objective - Vital Signs/Intake and Output Vital Signs (last 24 hours): Temp Pulse Resp BP Pulse Ox 98.4 F 80 20 130/70 95 12/20/16 07:41 12/20/16 09:09 12/20/16 07:41 12/20/16 09:09 12/20/16 07:41 Intake and Output: 12/20/16 12/20/16 06:59 18:59 Intake Total 920 Output Total 750 Balance 170 - Medications Medications: Current Medications Albuterol/Ipratropium (Duoneb 3 Mg/0.5 Mg (3 Ml) Ud) 3 ml IH [id number] PRN PRN Reason: Shortness of Breath Atorvastatin Calcium (Lipitor) 20 mg PO DIN [facility] Last Admin: 12/19/16 18:49 Dose: 20 mg Benzocaine/Menthol (Cepacol Sore Throat) 1 mickey MT Q2H PRN PRN Reason: Sore Throat Last Admin: 12/18/16 17:18 Dose: 1 mickey Clopidogrel Bisulfate (Plavix) 75 mg PO DAILY [facility] Last Admin: 12/20/16 09:08 Dose: 75 mg Diphenhydramine HCl (Benadryl) 25 mg PO Q6 PRN PRN Reason: Itching / Pruritus Last Admin: 12/20/16 09:26 Dose: 25 mg Diphenhydramine HCl (Benadryl) 25 mg PO HS PRN PRN Reason: Insomnia Last Admin: 12/20/16 01:04 Dose: 25 mg Docusate Sodium (Colace) 100 mg PO BID PRN PRN Reason: Constipation Last Admin: 12/19/16 09:27 Dose: 100 mg Gabapentin (Neurontin) 300 mg PO TID [facility] PRN Reason: Protocol Last Admin: 12/20/16 09:08 Dose: 300 mg Heparin Sodium (Porcine) (Heparin) 5,000 units SC Q12 [facility] PRN Reason: Protocol Last Admin: 12/19/16 22:30 Dose: Not Given Hydralazine HCl (Apresoline) 10 mg IVP Q6 PRN PRN Reason: Systolic Blood Pressure Last Admin: 12/16/16 06:40 Dose: 10 mg Hydromorphone HCl (Dilaudid) 0.5 mg IVP Q4H PRN PRN Reason: Pain, severe (8-10) Last Admin: 12/20/16 09:18 Dose: 0.5 mg Piperacillin Sod/Tazobactam Sod (Zosyn 3.375 In Ns 100ml) 100 mls @ 200 mls/hr IVPB Q6 [facility] PRN Reason: Protocol Stop: 12/27/16 12:01 Last Admin: 12/20/16 05:07 Dose: 200 mls/hr Sodium Chloride (Sodium Chloride 0.9%) 1,000 mls @ 100 mls/hr IV .Q10H [facility] Last Admin: 12/18/16 22:00 Dose: Not Given Insulin Detemir (Levemir) 25 unit SC HS [facility] Last Admin: 12/19/16 22:48 Dose: 25 unit Insulin Human Regular (Humulin R Low) 0 units SC ACHS [facility] PRN Reason: Protocol Last Admin: 12/20/16 08:19 Dose: Not Given Linezolid (Zyvox) 600 mg PO BID [facility] PRN Reason: Protocol Stop: 12/29/16 18:01 Last Admin: 12/20/16 09:22 Dose: 600 mg Lorazepam (Ativan) 0.5 mg PO TID PRN; Protocol PRN Reason: Anxiety Last Admin: 12/20/16 09:08 Dose: 0.5 mg Metoprolol Tartrate (Lopressor) 25 mg PO BID [facility] Last Admin: 12/20/16 09:09 Dose: 25 mg Morphine Sulfate (Morphine Extended Release Tab) 30 mg PO Q12 [facility] Stop: 12/21/16 23:59 Last Admin: 12/20/16 09:09 Dose: 30 mg Ondansetron HCl (Zofran Inj) 4 mg IVP Q4H PRN PRN Reason: Nausea/Vomiting Pantoprazole Sodium (Protonix Ec Tab) 40 mg PO 0600 [facility] Last Admin: 12/20/16 05:07 Dose: 40 mg Polyethylene Glycol (Miralax) 17 gm PO DAILY PRN PRN Reason: Constipation Last Admin: 12/13/16 09:12 Dose: 17 gm Trazodone HCl (Desyrel) 50 mg PO HS [facility] Last Admin: 12/19/16 22:30 Dose: Not Given - Labs Labs: 12/20/16 06:00 12/20/16 06:00 PT 11.6 Seconds (9.9-11.8) 11/25/16 03:00 INR 1.07 (0.93-1.08) 11/25/16 03:00 APTT 24.2 Seconds (23.7-30.8) 11/25/16 03:00 - Constitutional Appears: Well, Non-toxic, No Acute Distress - Extremities Exam Additional comments: Vasc: DP and PT pulses are palpable 1/4 bilaterally, 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 seconds to all digits, temperature gradient WNL, , no pitting or non-pitting edema noted Derm: Full thickness ulceration noted to the left heel measuring approximately 3.8x 3.5x0.4 cm with 100% granular base with no probe to bone noted, no purulence, no fluctuance, no active drainage noted, (-) probe to bone, no periwound erythema, no malodor, no clinical suspicion of infection Neuro: protective pedal sensation is grossly diminished Ortho: tenderness to palpation of the left heel - Neurological Exam Neurological Exam: Alert, Awake, Oriented x3 - Psychiatric Exam Psychiatric exam: Normal Affect, Normal Mood Assessment and Plan - Assessment and Plan (Free Text) Assessment: 51 y/o female seen at bedside with unstageable ulceration to left heel with OM Plan: Patient seen and evaluated at bedside with attending Dr. Hughes Chart, labs, vitals reviewed: afebrile, WBC @ 4.7 today Ulceration cleansed with sterile water and dressed using petroleum gauze, ABD and kerlix. Offloading padding applied to heels bilaterally Educated on the importance of wearing offloading boot for healing Pt is stable from podiatry standpoint to be D/C to [facility] for terminal manager abx for + OM Patient to follow up with her surgeon for further wound treatment Podiatry will follow while in house. <Tyler Hughes - Last Filed: 12/22/16 08:13> Objective - Vital Signs/Intake and Output Vital Signs (last 24 hours): Temp Pulse Resp BP Pulse Ox 98.1 F 80 18 138/80 99 12/21/16 20:00 12/21/16 20:00 12/21/16 20:00 12/21/16 20:00 12/21/16 20:00 Intake and Output: 12/22/16 12/22/16 06:59 18:59 Intake Total 240 Output Total 250 Balance -10 - Medications Medications: Current Medications Albuterol/Ipratropium (Duoneb 3 Mg/0.5 Mg (3 Ml) Ud) 3 ml IH [id number] PRN PRN Reason: Shortness of Breath Atorvastatin Calcium (Lipitor) 20 mg PO DIN [facility] Last Admin: 12/21/16 17:01 Dose: 20 mg Benzocaine/Menthol (Cepacol Sore Throat) 1 mickey MT Q2H PRN PRN Reason: Sore Throat Last Admin: 12/18/16 17:18 Dose: 1 mickey Clopidogrel Bisulfate (Plavix) 75 mg PO DAILY [facility] Last Admin: 12/21/16 10:56 Dose: 75 mg Diphenhydramine HCl (Benadryl) 25 mg PO Q6 PRN PRN Reason: Itching / Pruritus Last Admin: 12/20/16 09:26 Dose: 25 mg Diphenhydramine HCl (Benadryl) 25 mg PO HS PRN PRN Reason: Insomnia Last Admin: 12/21/16 22:01 Dose: 25 mg Docusate Sodium (Colace) 100 mg PO BID PRN PRN Reason: Constipation Last Admin: 12/19/16 09:27 Dose: 100 mg Gabapentin (Neurontin) 300 mg PO TID [facility] PRN Reason: Protocol Last Admin: 12/21/16 17:39 Dose: 300 mg Heparin Sodium (Porcine) (Heparin) 5,000 units SC Q12 [facility] PRN Reason: Protocol Last Admin: 12/21/16 21:46 Dose: 5,000 units Hydralazine HCl (Apresoline) 10 mg IVP Q6 PRN PRN Reason: Systolic Blood Pressure Last Admin: 12/16/16 06:40 Dose: 10 mg Hydromorphone HCl (Dilaudid) 0.5 mg IVP Q4H PRN PRN Reason: Pain, severe (8-10) Last Admin: 12/22/16 06:38 Dose: 0.5 mg Sodium Chloride (Sodium Chloride 0.9%) 1,000 mls @ 100 mls/hr IV .Q10H [facility] Last Admin: 12/22/16 07:03 Dose: 100 mls/hr Insulin Detemir (Levemir) 25 unit SC [facility] Last Admin: 12/21/16 21:55 Dose: 25 unit Insulin Human Regular (Humulin R Low) 0 units SC [facility] PRN Reason: Protocol Last Admin: 12/22/16 07:50 Dose: Not Given Linezolid (Zyvox) 600 mg PO BID [facility] PRN Reason: Protocol Stop: 12/29/16 18:01 Last Admin: 12/21/16 17:39 Dose: 600 mg Lorazepam (Ativan) 0.5 mg PO TID PRN; Protocol PRN Reason: Anxiety Last Admin: 12/20/16 09:08 Dose: 0.5 mg Metoprolol Tartrate (Lopressor) 25 mg PO BID [facility] Last Admin: 12/21/16 17:40 Dose: 25 mg Ondansetron HCl (Zofran Inj) 4 mg IVP Q4H PRN PRN Reason: Nausea/Vomiting Pantoprazole Sodium (Protonix Ec Tab) 40 mg PO 0600 [facility] Last Admin: 12/22/16 06:43 Dose: 40 mg Trazodone HCl (Desyrel) 50 mg PO [facility] Last Admin: 12/21/16 21:45 Dose: 50 mg - Labs Labs: 12/22/16 06:30 12/22/16 06:30 PT 11.6 Seconds (9.9-11.8) 11/25/16 03:00 INR 1.07 (0.93-1.08) 11/25/16 03:00 APTT 24.2 Seconds (23.7-30.8) 11/25/16 03:00 Attending/Attestation - Attestation I have personally seen and examined this patient.: Yes I have fully participated in the care of the patient.: Yes I have reviewed all pertinent clinical information, including history, physical exam and plan: Yes
--- NOTE | 2016-12-20 12:54 | PN ---
DATE: 12/20/2016 SUBJECTIVE: The patient is in bed, in no acute distress. PHYSICAL EXAMINATION VITAL SIGNS: Temperature is 98, blood pressure is 130/70, respiratory rate of 20. HEENT: Unremarkable. NECK: Supple. LUNGS: Decreased breath sounds. HEART: Normal S1, S2. ABDOMEN: Soft, nontender. LABORATORY DATA: Reveal the white count of 4.7, hemoglobin of 8, platelets of 122,000. The patient's sed rate is 80. Chemistry reveals the patient's C-reactive protein is 0.89, which is within normal limits, actually is low with a BUN of 42, creatinine of 1.8. Review of orders reveals the patient to be on Zosyn. We will reorder the Zyvox ASSESSMENT AND PLAN: A 51-year-old female with past medical history of diabetes, hypertension, dyslipidemia, left foot osteomyelitis with MRSA and resistant Proteus and now with a normal C-reactive protein, elevated sed rate and on Zyvox and Zosyn. Dr. Kovacs's note is reviewed. We will follow with you. Today is day #24 of antibiotics. We will need 4 to 6 weeks of antibiotics. Chandana Acevedo MD
--- NOTE | 2016-12-20 16:52 | CP.PCM.PN ---
<Garret Solorio - Last Filed: 12/20/16 16:56> Subjective - Date & Time of Evaluation Date of Evaluation: 12/20/16 Time of Evaluation: 08:00 - Subjective Subjective: Pt s/e at bedside. No new complaints today. Pt was agitated over night and refused to leave the facility. Security was called but was unable to get her to leave. Pt is at baseline right now. Objective - Vital Signs/Intake and Output Vital Signs (last 24 hours): Temp Pulse Resp BP Pulse Ox 98.3 F 74 20 147/94 H 95 12/20/16 16:00 12/20/16 16:00 12/20/16 16:00 12/20/16 16:00 12/20/16 07:41 Intake and Output: 12/20/16 12/20/16 06:59 18:59 Intake Total 920 620 Output Total 750 Balance 170 620 - Medications Medications: Current Medications Albuterol/Ipratropium (Duoneb 3 Mg/0.5 Mg (3 Ml) Ud) 3 ml IH [id number] PRN PRN Reason: Shortness of Breath Atorvastatin Calcium (Lipitor) 20 mg PO DIN [facility] Last Admin: 12/19/16 18:49 Dose: 20 mg Benzocaine/Menthol (Cepacol Sore Throat) 1 mickey MT Q2H PRN PRN Reason: Sore Throat Last Admin: 12/18/16 17:18 Dose: 1 mickey Clopidogrel Bisulfate (Plavix) 75 mg PO DAILY [facility] Last Admin: 12/20/16 09:08 Dose: 75 mg Diphenhydramine HCl (Benadryl) 25 mg PO Q6 PRN PRN Reason: Itching / Pruritus Last Admin: 12/20/16 09:26 Dose: 25 mg Diphenhydramine HCl (Benadryl) 25 mg PO HS PRN PRN Reason: Insomnia Last Admin: 12/20/16 01:04 Dose: 25 mg Docusate Sodium (Colace) 100 mg PO BID PRN PRN Reason: Constipation Last Admin: 12/19/16 09:27 Dose: 100 mg Gabapentin (Neurontin) 300 mg PO TID [facility] PRN Reason: Protocol Last Admin: 12/20/16 14:10 Dose: 300 mg Heparin Sodium (Porcine) (Heparin) 5,000 units SC Q12 [facility] PRN Reason: Protocol Last Admin: 12/19/16 22:30 Dose: Not Given Hydralazine HCl (Apresoline) 10 mg IVP Q6 PRN PRN Reason: Systolic Blood Pressure Last Admin: 12/16/16 06:40 Dose: 10 mg Hydromorphone HCl (Dilaudid) 0.5 mg IVP Q4H PRN PRN Reason: Pain, severe (8-10) Last Admin: 12/20/16 14:11 Dose: 0.5 mg Piperacillin Sod/Tazobactam Sod (Zosyn 3.375 In Ns 100ml) 100 mls @ 200 mls/hr IVPB Q6 [facility] PRN Reason: Protocol Stop: 12/27/16 12:01 Last Admin: 12/20/16 05:07 Dose: 200 mls/hr Sodium Chloride (Sodium Chloride 0.9%) 1,000 mls @ 100 mls/hr IV .Q10H [facility] Last Admin: 12/18/16 22:00 Dose: Not Given Insulin Detemir (Levemir) 25 unit SC HS [facility] Last Admin: 12/19/16 22:48 Dose: 25 unit Insulin Human Regular (Humulin R Low) 0 units SC ACHS [facility] PRN Reason: Protocol Last Admin: 12/20/16 08:19 Dose: Not Given Linezolid (Zyvox) 600 mg PO BID [facility] PRN Reason: Protocol Stop: 12/29/16 18:01 Last Admin: 12/20/16 09:22 Dose: 600 mg Lorazepam (Ativan) 0.5 mg PO TID PRN; Protocol PRN Reason: Anxiety Last Admin: 12/20/16 09:08 Dose: 0.5 mg Metoprolol Tartrate (Lopressor) 25 mg PO BID [facility] Last Admin: 12/20/16 09:09 Dose: 25 mg Morphine Sulfate (Morphine Extended Release Tab) 30 mg PO Q12 [facility] Stop: 12/21/16 23:59 Last Admin: 12/20/16 09:09 Dose: 30 mg Ondansetron HCl (Zofran Inj) 4 mg IVP Q4H PRN PRN Reason: Nausea/Vomiting Pantoprazole Sodium (Protonix Ec Tab) 40 mg PO 0600 [facility] Last Admin: 12/20/16 05:07 Dose: 40 mg Polyethylene Glycol (Miralax) 17 gm PO DAILY PRN PRN Reason: Constipation Last Admin: 12/13/16 09:12 Dose: 17 gm Trazodone HCl (Desyrel) 50 mg PO HS [facility] Last Admin: 12/19/16 22:30 Dose: Not Given - Labs Labs: 12/20/16 06:00 12/20/16 06:00 PT 11.6 Seconds (9.9-11.8) 11/25/16 03:00 INR 1.07 (0.93-1.08) 11/25/16 03:00 APTT 24.2 Seconds (23.7-30.8) 11/25/16 03:00 - Constitutional Appears: No Acute Distress - Head Exam Head Exam: ATRAUMATIC, NORMAL INSPECTION, NORMOCEPHALIC - Eye Exam Eye Exam: EOMI, Normal appearance, PERRL Pupil Exam: NORMAL ACCOMODATION - ENT Exam ENT Exam: Mucous Membranes Moist, Normal Exam - Neck Exam Neck Exam: Full ROM, Normal Inspection - Respiratory Exam Respiratory Exam: Clear to Ausculation Bilateral, NORMAL BREATHING PATTERN - Cardiovascular Exam Cardiovascular Exam: REGULAR RHYTHM, +S1, +S2 - GI/Abdominal Exam GI & Abdominal Exam: Soft, Normal Bowel Sounds - Rectal Exam Rectal Exam: NORMAL INSPECTION - Extremities Exam Extremities Exam: Full ROM Additional comments: ulceration but no malodor of L calcaneous; - Back Exam Back Exam: NORMAL INSPECTION - Neurological Exam Neurological Exam: Alert, Awake, CN II-XII Intact, Oriented x3 - Psychiatric Exam Psychiatric exam: Agitated, Anxious, Depressed Assessment and Plan - Assessment and Plan (Free Text) Assessment: Assessment: Ms. Kerr is a 51 yo female with a past medical history of [place], hyperlipidemia, diabetes, HTN, CKD, asthma, DVT, uterine cancer, lung cancer and thromboembolic disease S/P left heel osteomyelitis debridement who was admitted for evaluation and treatment of chest pain and left heel pain. Plan: 1. Osteomyelitis of L Calcaneus -ID consulted, all recommendations appreciated -wound cultures showed MRSA and amikacin sensitive proteus mirabilis -4-6 weeks of Zosyn and 3-4 weeks of Zyvox with weekly ESR, CRP, CBC, CMP. Will consider PO antibiotics if these trend downward, per ID -cont with Zosyn and Zyvox (Day 23), per ID -ESR 80(H) and CONSTRUCTION PERSON 0.89(L); will cont to trend -pain control with PO morphine ER and IV dilaudid -podiatry consulted, all recommendations appreciated -offloading boot to L foot, per podiatry -cont PT/OT; suggest [facility] placement upon DC -SW/case management working on acute care placement; discharge from hospital delayed due to placement issues and patient's refusal to leave 2. Hyperkalemia - K+ at 5.1 on 12/19 (5.2 on 12/18) - creatinine 1.9 on 12/19 (stable from 12/18) - patient still refusing recommended IVF and EKG - will cont to monitor 3. Vaginal Discharge - no reports of bloody discharge per nursing staff -currently refusing pelvic exam - stable hemoglobin and hematocrit - gonorrhea, chlamydia, BV and trichomonas cultures pending - will cont to monitor and consult FINISH CLEANER when clinically appropriate 4. Dysphagia -will continue to monitor at this time and obtain swallowing study when clinically indicated 5. Chronic Pancreatitis -recommended IVF -cont with humilin SSI and levemir 25u HS -pain control with IV morphine and dilaudid -heart healthy diet with low fat -will cont to monitor 6. Delirium -psychiatry signed off of patient on 12/19; all recommendations appreciated -psychiatry notes improvement in patients communication skills and emotional lability -cont zyprexa, PRN Risperidone and PRN Ativan 7. Cataracts -ophthalmology reconsulted on 12/17 and states that they will see patient on outpatient basis upon discharge -will assist pt in scheduling upon discharge, as per original ophthalmology recommendations -will cont to monitor 8. Constipation - PRN miralax - will cont to monitor for diarrhea 9. Thyroid Nodule -TSH wnl -asymptomatic at this time -will continue to monitor 10. Anemia -Iron studies within normal limits -B12 and Folate WNL -continuing to monitor with daily CBC's 11. Asthma -Duoneb q4 PRN 12. History of Medication Noncompliance - patient noticeably more compliant with medication therapy - will continue to educate patient on the importance of medication compliance with all prescribed medications whenever appropriate 13. History of Heart, Lung, and Uterine Cancer - self reported by patient; no written record [place] [facility] [place] [facility] - noncontrast CT of chest/abdomen/ pelvis showed no acute disease processes in heart, lung or uterus - will continue to monitor clinically and consult hem/onc when clinically appropriate 14. GI/DVT prophylaxis -protonix/ SCD <Mimi Woodward MD - Last Filed: 12/20/16 17:47> Objective - Vital Signs/Intake and Output Vital Signs (last 24 hours): Temp Pulse Resp BP Pulse Ox 98.3 F 74 20 147/94 H 95 12/20/16 16:00 12/20/16 16:00 12/20/16 16:00 12/20/16 16:00 12/20/16 07:41 Intake and Output: 12/20/16 12/20/16 06:59 18:59 Intake Total 920 620 Output Total 750 Balance 170 620 - Medications Medications: Current Medications Albuterol/Ipratropium (Duoneb 3 Mg/0.5 Mg (3 Ml) Ud) 3 ml IH [id number] PRN PRN Reason: Shortness of Breath Atorvastatin Calcium (Lipitor) 20 mg PO DIN [facility] Last Admin: 12/20/16 17:07 Dose: 20 mg Benzocaine/Menthol (Cepacol Sore Throat) 1 mickey MT Q2H PRN PRN Reason: Sore Throat Last Admin: 12/18/16 17:18 Dose: 1 mickey Clopidogrel Bisulfate (Plavix) 75 mg PO DAILY [facility] Last Admin: 12/20/16 09:08 Dose: 75 mg Diphenhydramine HCl (Benadryl) 25 mg PO Q6 PRN PRN Reason: Itching / Pruritus Last Admin: 12/20/16 09:26 Dose: 25 mg Diphenhydramine HCl (Benadryl) 25 mg PO HS PRN PRN Reason: Insomnia Last Admin: 12/20/16 01:04 Dose: 25 mg Docusate Sodium (Colace) 100 mg PO BID PRN PRN Reason: Constipation Last Admin: 12/19/16 09:27 Dose: 100 mg Gabapentin (Neurontin) 300 mg PO TID [facility] PRN Reason: Protocol Last Admin: 12/20/16 14:10 Dose: 300 mg Heparin Sodium (Porcine) (Heparin) 5,000 units SC Q12 [facility] PRN Reason: Protocol Last Admin: 12/20/16 10:13 Dose: Not Given Hydralazine HCl (Apresoline) 10 mg IVP Q6 PRN PRN Reason: Systolic Blood Pressure Last Admin: 12/16/16 06:40 Dose: 10 mg Hydromorphone HCl (Dilaudid) 0.5 mg IVP Q4H PRN PRN Reason: Pain, severe (8-10) Last Admin: 12/20/16 14:11 Dose: 0.5 mg Piperacillin Sod/Tazobactam Sod (Zosyn 3.375 In Ns 100ml) 100 mls @ 200 mls/hr IVPB Q6 [facility] PRN Reason: Protocol Stop: 12/27/16 12:01 Last Admin: 12/20/16 12:16 Dose: 200 mls/hr Sodium Chloride (Sodium Chloride 0.9%) 1,000 mls @ 100 mls/hr IV .Q10H [facility] Last Admin: 12/18/16 22:00 Dose: Not Given Insulin Detemir (Levemir) 25 unit SC [facility] Last Admin: 12/19/16 22:48 Dose: 25 unit Insulin Human Regular (Humulin R Low) 0 units SC [facility] PRN Reason: Protocol Last Admin: 12/20/16 17:14 Dose: 2 units Linezolid (Zyvox) 600 mg PO BID [facility] PRN Reason: Protocol Stop: 12/29/16 18:01 Last Admin: 12/20/16 09:22 Dose: 600 mg Lorazepam (Ativan) 0.5 mg PO TID PRN; Protocol PRN Reason: Anxiety Last Admin: 12/20/16 09:08 Dose: 0.5 mg Metoprolol Tartrate (Lopressor) 25 mg PO BID [facility] Last Admin: 12/20/16 09:09 Dose: 25 mg Morphine Sulfate (Morphine Extended Release Tab) 30 mg PO Q12 [facility] Stop: 12/21/16 23:59 Last Admin: 12/20/16 09:09 Dose: 30 mg Ondansetron HCl (Zofran Inj) 4 mg IVP Q4H PRN PRN Reason: Nausea/Vomiting Pantoprazole Sodium (Protonix Ec Tab) 40 mg PO 0600 [facility] Last Admin: 12/20/16 05:07 Dose: 40 mg Polyethylene Glycol (Miralax) 17 gm PO DAILY PRN PRN Reason: Constipation Last Admin: 12/13/16 09:12 Dose: 17 gm Trazodone HCl (Desyrel) 50 mg PO [facility] Last Admin: 12/19/16 22:30 Dose: Not Given - Labs Labs: 12/20/16 06:00 12/20/16 06:00 PT 11.6 Seconds (9.9-11.8) 11/25/16 03:00 INR 1.07 (0.93-1.08) 11/25/16 03:00 APTT 24.2 Seconds (23.7-30.8) 11/25/16 03:00 Attending/Attestation - Attestation I have personally seen and examined this patient.: Yes I have fully participated in the care of the patient.: Yes I have reviewed all pertinent clinical information, including history, physical exam and plan: Yes Notes (Text): 12/20/16 17:46 51 year old female with PMH of [place], diabetes, hypertension, chronic heel ulcer , chronic OM on IV zosyn and zyvox for Left heel osteomyelitis, need total 6 weeks of antibiotics.Patient also has CKD, creatinin is 1.8, stable . Patient has chronic anemia and hemoglobn is stable. Diarrhea is better. Patient was also evaluated by Ophthalmology and is found to have Cataract, will need out patient surgery. Patient is stable at her base line. Patient is awaiting for placement. Prognosis is guarded. Management plan was discussed in detail with patient.
[2016-12-20] MEDS: Insulin Detemir 100 units/ml Vial (Levemir) SC SCH (21:54)
[2016-12-21] MEDS: Piperacillin/Tazobact 3.375 gm 100 ML IVPB SCH ×2 (00:04→06:14)
[2016-12-21] MEDS: HYDROmorphone 0.5 mg/0.5 ml ISec IVP PRN ×4 (05:45→20:37)
[2016-12-21] MEDS: Pantoprazole 40 mg EC Tab PO SCH (06:15)
[2016-12-21 06:42] LABS: ADD MANUAL DIFF? NO
[2016-12-21 07:11] LABS: BILIRUBIN,TOTAL 0.4 mg/dL (0.2-1.3); CALCIUM 9.2 mg/dL (8.4-10.5); POTASSIUM 4.9 mmol/L (3.6-5.0); TOTAL PROTEIN 7.3 g/dL (5.8-8.3)
[2016-12-21 07:20] LABS: BASO # 0.03 K/mm3 (0.0-2.0); BASO % 0.5 % (0.0-3.0); EOS # 0.3 (0.0-0.7); EOS % 5.6 % (1.5-5.0); GRAN # 2.32 (1.4-6.5); GRAN % 40.5 % (50.0-68.0); HEMATOCRIT 28.3 % (36.0-48.0); LYMPH # 2.8 (1.2-3.4); LYMPH % 48.7 % (22.0-35.0); MEAN CELL VOLUME 79.1 fL (80.0-105.0); MEAN CORPUSCULAR HGB CONC 32.9 g/dl (31.0-37.0); MEAN PLATELET VOLUME 9.2 fl (7.0-11.0); MONO # 0.3 (0.1-0.6); MONO % 4.7 % (1.0-6.0); PLATELET COUNT 168 10^3/uL (120.0-450.0); RED CELL DISTRIBUTION WIDTH 15.6 % (11.5-14.5); WHITE BLOOD COUNT 5.7 10^3/ul (4.5-11.0)
[2016-12-21] MEDS: Sodium Chloride 0.9% 1,000 ML IV SCH ×4 (09:00→20:52)
[2016-12-21] MEDS: Insulin Reg-LOW-Coverage SC SCH ×3 (09:39→16:59)
[2016-12-21] MEDS: Morphine 30 mg SR Tab PO SCH ×2 (10:55→21:42)
--- NOTE | 2016-12-21 12:41 | CP.PCM.PN ---
<Fatimah Brasher - Last Filed: 12/21/16 12:37> Subjective - Date & Time of Evaluation Date of Evaluation: 12/21/16 Time of Evaluation: 12:00 - Subjective Subjective: 51 y/o female seen and evaluated at bedside for left heel ulcer. She is seen AAOx3 and in NAD. Pt appears to be resting comfortably in bed. She states that she is tender to touch on her left heel. Pt denies of any acute overnight events. Patient was not seen wearing boots as instructed to offload heels bilaterally. Pt denies of any recent F/N/V/C/SOB. Pt denies of any new pedal complains Objective - Vital Signs/Intake and Output Vital Signs (last 24 hours): Temp Pulse Resp BP Pulse Ox 97.9 F 80 18 133/71 100 12/21/16 10:55 12/21/16 10:56 12/21/16 10:55 12/21/16 10:56 12/21/16 10:55 Intake and Output: 12/21/16 12/21/16 06:59 18:59 Intake Total 240 Output Total 300 Balance -60 - Medications Medications: Current Medications Albuterol/Ipratropium (Duoneb 3 Mg/0.5 Mg (3 Ml) Ud) 3 ml IH [id number] PRN PRN Reason: Shortness of Breath Atorvastatin Calcium (Lipitor) 20 mg PO DIN [facility] Last Admin: 12/20/16 17:07 Dose: 20 mg Benzocaine/Menthol (Cepacol Sore Throat) 1 mickey MT Q2H PRN PRN Reason: Sore Throat Last Admin: 12/18/16 17:18 Dose: 1 mickey Clopidogrel Bisulfate (Plavix) 75 mg PO DAILY [facility] Last Admin: 12/21/16 10:56 Dose: 75 mg Diphenhydramine HCl (Benadryl) 25 mg PO Q6 PRN PRN Reason: Itching / Pruritus Last Admin: 12/20/16 09:26 Dose: 25 mg Diphenhydramine HCl (Benadryl) 25 mg PO HS PRN PRN Reason: Insomnia Last Admin: 12/20/16 21:12 Dose: 25 mg Docusate Sodium (Colace) 100 mg PO BID PRN PRN Reason: Constipation Last Admin: 12/19/16 09:27 Dose: 100 mg Gabapentin (Neurontin) 300 mg PO TID [facility] PRN Reason: Protocol Last Admin: 12/21/16 10:55 Dose: 300 mg Heparin Sodium (Porcine) (Heparin) 5,000 units SC Q12 [facility] PRN Reason: Protocol Last Admin: 12/20/16 21:12 Dose: 5,000 units Hydralazine HCl (Apresoline) 10 mg IVP Q6 PRN PRN Reason: Systolic Blood Pressure Last Admin: 12/16/16 06:40 Dose: 10 mg Hydromorphone HCl (Dilaudid) 0.5 mg IVP Q4H PRN PRN Reason: Pain, severe (8-10) Last Admin: 12/21/16 10:59 Dose: 0.5 mg Sodium Chloride (Sodium Chloride 0.9%) 1,000 mls @ 100 mls/hr IV .Q10H [facility] Piperacillin Sod/Tazobactam Sod (Zosyn 2.25 Gm In 0.9% 100 Ml) 2.25 gm in 100 mls @ 100 mls/hr IVPB Q8 [facility] PRN Reason: Protocol Stop: 12/21/16 22:59 Insulin Detemir (Levemir) 25 unit SC HS [facility] Last Admin: 12/20/16 21:54 Dose: 25 unit Insulin Human Regular (Humulin R Low) 0 units SC ACHS [facility] PRN Reason: Protocol Last Admin: 12/21/16 09:39 Dose: Not Given Linezolid (Zyvox) 600 mg PO BID [facility] PRN Reason: Protocol Stop: 12/29/16 18:01 Last Admin: 12/21/16 10:56 Dose: 600 mg Lorazepam (Ativan) 0.5 mg PO TID PRN; Protocol PRN Reason: Anxiety Last Admin: 12/20/16 09:08 Dose: 0.5 mg Metoprolol Tartrate (Lopressor) 25 mg PO BID [facility] Last Admin: 12/21/16 10:56 Dose: 25 mg Morphine Sulfate (Morphine Extended Release Tab) 30 mg PO Q12 [facility] Stop: 12/21/16 23:59 Last Admin: 12/21/16 10:55 Dose: 30 mg Ondansetron HCl (Zofran Inj) 4 mg IVP Q4H PRN PRN Reason: Nausea/Vomiting Pantoprazole Sodium (Protonix Ec Tab) 40 mg PO 0600 [facility] Last Admin: 12/21/16 06:15 Dose: Not Given Trazodone HCl (Desyrel) 50 mg PO HS [facility] Last Admin: 12/20/16 22:05 Dose: 50 mg - Labs Labs: 12/21/16 06:40 12/21/16 06:40 PT 11.6 Seconds (9.9-11.8) 11/25/16 03:00 INR 1.07 (0.93-1.08) 11/25/16 03:00 APTT 24.2 Seconds (23.7-30.8) 11/25/16 03:00 - Constitutional Appears: Well, Non-toxic, No Acute Distress - Extremities Exam Additional comments: Vasc: DP and PT pulses are palpable 1/4 bilaterally, FAMILY ASSESSMENT WORKER < 3 seconds to all digits, temperature gradient WNL, No pitting or non-pitting edema noted Derm: Full thickness ulceration noted to the left heel measuring approximately 3.8x 3.5x0.4 cm with 100% granular base with no probe to bone noted, no purulence, no fluctuance, no active drainage noted, (-) probe to bone, no periwound erythema, no malodor, no clinical suspicion of infection Neuro: protective pedal sensation is grossly diminished Ortho: tenderness to palpation of the left heel - Neurological Exam Neurological Exam: Alert, Awake, Oriented x3 - Psychiatric Exam Psychiatric exam: Normal Affect, Normal Mood Assessment and Plan - Assessment and Plan (Free Text) Assessment: 51 y/o female seen at bedside with unstageable ulceration to left heel with OM Plan: Patient seen and evaluated Chart, labs, vitals reviewed: afebrile, WBC @ 5.7 today Ulceration cleansed with sterile water and dressed using petroleum gauze, ABD and kerlix. Offloading padding applied to heels bilaterally Educated on the importance of wearing offloading boot for healing Pt is stable from podiatry standpoint to be D/C to [facility] for terminal gauger supervisor abx for + OM Patient to follow up with her surgeon for further wound treatment Podiatry will follow while in house. <Tyler Hughes - Last Filed: 01/06/17 12:02> Objective - Vital Signs/Intake and Output Vital Signs (last 24 hours): Temp Pulse Resp BP Pulse Ox 98.1 F 80 20 140/80 96 12/24/16 08:00 12/24/16 08:00 12/24/16 08:00 12/24/16 08:00 12/24/16 08:00 - Labs Labs: 12/24/16 08:00 12/22/16 06:30 PT 11.6 Seconds (9.9-11.8) 11/25/16 03:00 INR 1.07 (0.93-1.08) 11/25/16 03:00 APTT 24.2 Seconds (23.7-30.8) 11/25/16 03:00 Attending/Attestation - Attestation I have personally seen and examined this patient.: Yes I have fully participated in the care of the patient.: Yes I have reviewed all pertinent clinical information, including history, physical exam and plan: Yes
--- NOTE | 2016-12-21 13:20 | PN ---
DATE: 12/21/2016 SUBJECTIVE: The patient is in bed, in no acute distress, nontoxic. PHYSICAL EXAMINATION VITAL SIGNS: Temperature is 98, blood pressure is 140/70 and respiratory rate 20. HEENT: Unremarkable. NECK: Supple. LUNGS: Decreased breath sounds. HEART: Normal S1 and S2. ABDOMEN: Soft and nontender. LABORATORY DATA: Reveals the white count of 5.7, hemoglobin of 9, platelets of 160. Sed rate is 80. BUN of 44, creatinine of 2.2. C-reactive protein is down to 0.89. Urinalysis is noted. Microbiology reveals proteus mirabilis and MRSA. Review of order reveals the patient to be on Zosyn and Zyvox. ASSESSMENT AND PLAN: This is a 51-year-old female, with past medical history of diabetes mellitus, hypertension, dyslipidemia, left foot osteomyelitis, with MRSA and resistant proteus with currently on day #25 of antibiotics. We will need 4 to 6 weeks of antibiotics with CBC, SMA-18, sed rate, C-reactive protein and a local wound care. Chandana Acevedo MD
[2016-12-21] MEDS: Piperacillin/Tazobact 2.25gm 2.25 GM/100 ML BAG IVPB SCH ×2 (13:45→21:53)
[2016-12-21 17:15] LABS: PH,URINE 6.5 (4.7-8.0); URINE BILIRUBIN NEGATIVE (NEGATIVE); URINE BLOOD SMALL (NEGATIVE); URINE GLUCOSE (UA) NEGATIVE (NEGATIVE); URINE KETONE NEGATIVE (NEGATIVE); URINE LEUKOCYTE ESTERASE SMALL Leu/uL (NEGATIVE); URINE PROTEIN 100 mg/dL (<30 mg/dL); URINE UROBILINOGEN 0.2 E.U./dL (<1 E.U./dL)
[2016-12-21 17:20] LABS: URINE APPEARANCE CLEAR (CLEAR); URINE COLOR YELLOW (YELLOW)
[2016-12-21 17:57] LABS: URINE BACTERIA SMALL (NEG)
--- NOTE | 2016-12-21 18:03 | CP.PCM.PN ---
<Garret Solorio Aristeo - Last Filed: 12/21/16 18:05> Subjective - Date & Time of Evaluation Date of Evaluation: 12/21/16 Time of Evaluation: 08:40 - Subjective Subjective: Pt s/e at bedside. No new complaints today. Pt at baseline right now. Advised on importance of hydration. Will be d/c'd tomorrow pending placement Objective - Vital Signs/Intake and Output Vital Signs (last 24 hours): Temp Pulse Resp BP Pulse Ox 98.7 F 106 H 22 142/86 99 12/21/16 16:00 12/21/16 17:40 12/21/16 16:00 12/21/16 17:40 12/21/16 16:00 Intake and Output: 12/21/16 12/21/16 06:59 18:59 Intake Total 240 620 Output Total 300 Balance -60 620 - Medications Medications: Current Medications Albuterol/Ipratropium (Duoneb 3 Mg/0.5 Mg (3 Ml) Ud) 3 ml IH [id number] PRN PRN Reason: Shortness of Breath Atorvastatin Calcium (Lipitor) 20 mg PO DIN [facility] Last Admin: 12/21/16 17:01 Dose: 20 mg Benzocaine/Menthol (Cepacol Sore Throat) 1 mickey MT Q2H PRN PRN Reason: Sore Throat Last Admin: 12/18/16 17:18 Dose: 1 mickey Clopidogrel Bisulfate (Plavix) 75 mg PO DAILY [facility] Last Admin: 12/21/16 10:56 Dose: 75 mg Diphenhydramine HCl (Benadryl) 25 mg PO Q6 PRN PRN Reason: Itching / Pruritus Last Admin: 12/20/16 09:26 Dose: 25 mg Diphenhydramine HCl (Benadryl) 25 mg PO HS PRN PRN Reason: Insomnia Last Admin: 12/20/16 21:12 Dose: 25 mg Docusate Sodium (Colace) 100 mg PO BID PRN PRN Reason: Constipation Last Admin: 12/19/16 09:27 Dose: 100 mg Gabapentin (Neurontin) 300 mg PO TID [facility] PRN Reason: Protocol Last Admin: 12/21/16 17:39 Dose: 300 mg Heparin Sodium (Porcine) (Heparin) 5,000 units SC Q12 [facility] PRN Reason: Protocol Last Admin: 12/21/16 09:19 Dose: Not Given Hydralazine HCl (Apresoline) 10 mg IVP Q6 PRN PRN Reason: Systolic Blood Pressure Last Admin: 12/16/16 06:40 Dose: 10 mg Hydromorphone HCl (Dilaudid) 0.5 mg IVP Q4H PRN PRN Reason: Pain, severe (8-10) Last Admin: 12/21/16 16:25 Dose: 0.5 mg Sodium Chloride (Sodium Chloride 0.9%) 1,000 mls @ 100 mls/hr IV .Q10H [facility] Last Admin: 12/21/16 09:30 Dose: 100 mls/hr Piperacillin Sod/Tazobactam Sod (Zosyn 2.25 Gm In 0.9% 100 Ml) 2.25 gm in 100 mls @ 100 mls/hr IVPB Q8 [facility] PRN Reason: Protocol Stop: 12/21/16 22:59 Last Admin: 12/21/16 13:45 Dose: 100 mls/hr Insulin Detemir (Levemir) 25 unit SC HS [facility] Last Admin: 12/20/16 21:54 Dose: 25 unit Insulin Human Regular (Humulin R Low) 0 units SC [facility] PRN Reason: Protocol Last Admin: 12/21/16 16:59 Dose: Not Given Linezolid (Zyvox) 600 mg PO BID [facility] PRN Reason: Protocol Stop: 12/29/16 18:01 Last Admin: 12/21/16 17:39 Dose: 600 mg Lorazepam (Ativan) 0.5 mg PO TID PRN; Protocol PRN Reason: Anxiety Last Admin: 12/20/16 09:08 Dose: 0.5 mg Metoprolol Tartrate (Lopressor) 25 mg PO BID [facility] Last Admin: 12/21/16 17:40 Dose: 25 mg Morphine Sulfate (Morphine Extended Release Tab) 30 mg PO Q12 [facility] Stop: 12/21/16 23:59 Last Admin: 12/21/16 10:55 Dose: 30 mg Ondansetron HCl (Zofran Inj) 4 mg IVP Q4H PRN PRN Reason: Nausea/Vomiting Pantoprazole Sodium (Protonix Ec Tab) 40 mg PO 0600 [facility] Last Admin: 12/21/16 06:15 Dose: Not Given Trazodone HCl (Desyrel) 50 mg PO HS [facility] Last Admin: 12/20/16 22:05 Dose: 50 mg - Labs Labs: 12/21/16 06:40 12/21/16 06:40 PT 11.6 Seconds (9.9-11.8) 11/25/16 03:00 INR 1.07 (0.93-1.08) 11/25/16 03:00 APTT 24.2 Seconds (23.7-30.8) 11/25/16 03:00 - Constitutional Appears: Unkempt - Head Exam Head Exam: ATRAUMATIC, NORMAL INSPECTION, NORMOCEPHALIC - Eye Exam Eye Exam: EOMI, Normal appearance, PERRL Pupil Exam: NORMAL ACCOMODATION - ENT Exam ENT Exam: Mucous Membranes Moist, Normal Exam - Neck Exam Neck Exam: Full ROM, Normal Inspection - Respiratory Exam Respiratory Exam: Clear to Ausculation Bilateral, NORMAL BREATHING PATTERN - Cardiovascular Exam Cardiovascular Exam: REGULAR RHYTHM, +S1 - GI/Abdominal Exam GI & Abdominal Exam: Soft, Normal Bowel Sounds - Rectal Exam Rectal Exam: Deferred - Extremities Exam Extremities Exam: Full ROM, Normal Capillary Refill, Normal Inspection - Back Exam Back Exam: NORMAL INSPECTION - Neurological Exam Neurological Exam: Alert, Awake, CN II-XII Intact, Oriented x3 - Psychiatric Exam Psychiatric exam: Flat Affect - Skin Skin Exam: Intact Assessment and Plan - Assessment and Plan (Free Text) Assessment: Ms. Kerr is a 51 yo female with a past medical history of [place], hyperlipidemia, diabetes, HTN, CKD, asthma, DVT, uterine cancer, lung cancer and thromboembolic disease S/P left heel osteomyelitis debridement who was admitted for evaluation and treatment of chest pain and left heel pain. Plan: 1. Osteomyelitis of L Calcaneus -ID consulted, all recommendations appreciated -wound cultures showed MRSA and amikacin sensitive proteus mirabilis -4-6 weeks of Zosyn and 3-4 weeks of Zyvox with weekly ESR, CRP, CBC, CMP. 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 Elevated BUN likely 2/2 Dehydration - IVF started 3. Hyperkalemia - K+ at 5.1 on 12/19 (5.2 on 12/18) - creatinine 1.9 on 12/19 (stable from 12/18) - patient still refusing recommended IVF and EKG - will cont to monitor 4. Vaginal Discharge - no reports of bloody discharge per nursing staff -currently refusing pelvic exam - stable hemoglobin and hematocrit - gonorrhea, chlamydia, BV and trichomonas cultures pending - will cont to monitor and consult [employer] when clinically appropriate 5. Dysphagia -will continue to monitor at this time and obtain swallowing study when clinically indicated 6. Chronic Pancreatitis -recommended IVF -cont with humilin SSI and levemir 25u HS -pain control with IV morphine and dilaudid -heart healthy diet with low fat -will cont to monitor 7. Delirium -psychiatry signed off of patient on 12/19; all recommendations appreciated -psychiatry notes improvement in patients communication skills and emotional lability -cont zyprexa, PRN Risperidone and PRN Ativan 8. Cataracts -ophthalmology reconsulted on 12/17 and states that they will see patient on outpatient basis upon discharge -will assist pt in scheduling upon discharge, as per original ophthalmology recommendations -will cont to monitor 9. Constipation - PRN miralax - will cont to monitor for diarrhea 10. Thyroid Nodule -TSH wnl -asymptomatic at this time -will continue to monitor 11. Anemia -Iron studies within normal limits -B12 and Folate WNL -continuing to monitor with daily CBC's 12. Asthma -Duoneb q4 PRN 13. History of Medication Noncompliance - patient noticeably more compliant with medication therapy - will continue to educate patient on the importance of medication compliance with all prescribed medications whenever appropriate 14. History of Heart, Lung, and Uterine Cancer - self reported by patient; no written record of illness at [facility] or [facility] - noncontrast CT of chest/abdomen/ pelvis showed no acute disease processes in heart, lung or uterus - will continue to monitor clinically and consult hem/onc when clinically appropriate 15. GI/DVT prophylaxis -protonix/ SCD <Crissy HER,Mimi - Last Filed: 12/26/16 08:01> Objective - Vital Signs/Intake and Output Vital Signs (last 24 hours): Temp Pulse Resp BP Pulse Ox 98.1 F 80 20 140/80 96 12/24/16 08:00 12/24/16 08:00 12/24/16 08:00 12/24/16 08:00 12/24/16 08:00 - Labs Labs: 12/24/16 08:00 12/22/16 06:30 PT 11.6 Seconds (9.9-11.8) 11/25/16 03:00 INR 1.07 (0.93-1.08) 11/25/16 03:00 APTT 24.2 Seconds (23.7-30.8) 11/25/16 03:00 Attending/Attestation - Attestation I have personally seen and examined this patient.: Yes I have fully participated in the care of the patient.: Yes I have reviewed all pertinent clinical information, including history, physical exam and plan: Yes Notes (Text): 12/26/16 07:57 Patient was seen and examined with medical equipment technician. 51 year old female with PMH of [place], diabetes, hypertension, chronic heel ulcer , chronic OM on IV zosyn and zyvox for Left heel osteomyelitis, need total 6 weeks of antibiotics.Patient also has CKD, creatinin is 2.1 Creatinin is mildly up from base line Creatinin 1.5-1.7.We will hydrate patient. Patient has chronic anemia , hemoglobn is stable.Patient was also evaluated by Ophthalmology and is found to have Cataract, will need out patient surgery.Patient was accepted by one facility yesterday but she has refused to go, case management is aware off the situation.We will repeat renal function in 24 hour.Antibiotic doses are adjusted. Management plan was discussed in detail with patient.Education was provided.
[2016-12-21] MEDS: Insulin Detemir 100 units/ml Vial (Levemir) SC SCH (21:55)
[2016-12-22] MEDS: HYDROmorphone 0.5 mg/0.5 ml ISec IVP PRN ×6 (02:29→23:20)
[2016-12-22] MEDS: Insulin Reg-LOW-Coverage SC SCH ×5 (02:42→23:58)
[2016-12-22] MEDS: Pantoprazole 40 mg EC Tab PO SCH (06:43)
[2016-12-22 06:56] LABS: ADD MANUAL DIFF? NO
[2016-12-22 07:02] LABS: BASO # 0.01 K/mm3 (0.0-2.0); BASO % 0.2 % (0.0-3.0); EOS # 0.3 (0.0-0.7); EOS % 6.2 % (1.5-5.0); GRAN # 2.75 (1.4-6.5); GRAN % 49.8 % (50.0-68.0); HEMATOCRIT 24.9 % (36.0-48.0); LYMPH # 2.1 (1.2-3.4); LYMPH % 37.1 % (22.0-35.0); MEAN CORPUSCULAR HEMOGLOBIN 25.7 pg (25.0-35.0); MEAN CORPUSCULAR HGB CONC 32.5 g/dl (31.0-37.0); MEAN PLATELET VOLUME 8.8 fl (7.0-11.0); MONO # 0.4 (0.1-0.6); MONO % 6.7 % (1.0-6.0); PLATELET COUNT 114 10^3/uL (120.0-450.0); RED CELL DISTRIBUTION WIDTH 15.5 % (11.5-14.5); WHITE BLOOD COUNT 5.5 10^3/ul (4.5-11.0)
[2016-12-22] MEDS: Sodium Chloride 0.9% 1,000 ML IV SCH (07:03)
[2016-12-22 07:26] LABS: ALB/GLOB RATIO 0.9 (1.1-1.8); BILIRUBIN,TOTAL 0.4 mg/dL (0.2-1.3); CALCIUM 8.9 mg/dL (8.4-10.5); POTASSIUM 4.5 mmol/L (3.6-5.0); TOTAL PROTEIN 6.6 g/dL (5.8-8.3)
--- NOTE | 2016-12-22 09:43 | CP.PCM.PN ---
<Tiffany Joya - Last Filed: 12/22/16 09:40> Subjective - Date & Time of Evaluation Date of Evaluation: 12/22/16 Time of Evaluation: 08:30 - Subjective Subjective: 51 y/o female pt seen at bedside today with Dr. Hughes present regarding left heel ulceration. Pt seen resting comfortably in bed at time of visit, appears quite lethargic and dozing on and off however does answer questions. Says left foot does feel tender, denies any problems at this time. Objective - Vital Signs/Intake and Output Vital Signs (last 24 hours): Temp Pulse Resp BP Pulse Ox 98.1 F 80 18 138/80 99 12/21/16 20:00 12/21/16 20:00 12/21/16 20:00 12/21/16 20:00 12/21/16 20:00 Intake and Output: 12/22/16 12/22/16 06:59 18:59 Intake Total 240 Output Total 250 Balance -10 - Medications Medications: Current Medications Albuterol/Ipratropium (Duoneb 3 Mg/0.5 Mg (3 Ml) Ud) 3 ml IH [id number] PRN PRN Reason: Shortness of Breath Atorvastatin Calcium (Lipitor) 20 mg PO DIN [facility] Last Admin: 12/21/16 17:01 Dose: 20 mg Benzocaine/Menthol (Cepacol Sore Throat) 1 mickey MT Q2H PRN PRN Reason: Sore Throat Last Admin: 12/18/16 17:18 Dose: 1 mickey Clopidogrel Bisulfate (Plavix) 75 mg PO DAILY [facility] Last Admin: 12/21/16 10:56 Dose: 75 mg Diphenhydramine HCl (Benadryl) 25 mg PO Q6 PRN PRN Reason: Itching / Pruritus Last Admin: 12/20/16 09:26 Dose: 25 mg Diphenhydramine HCl (Benadryl) 25 mg PO HS PRN PRN Reason: Insomnia Last Admin: 12/21/16 22:01 Dose: 25 mg Docusate Sodium (Colace) 100 mg PO BID PRN PRN Reason: Constipation Last Admin: 12/19/16 09:27 Dose: 100 mg Gabapentin (Neurontin) 300 mg PO TID [facility] PRN Reason: Protocol Last Admin: 12/21/16 17:39 Dose: 300 mg Heparin Sodium (Porcine) (Heparin) 5,000 units SC Q12 [facility] PRN Reason: Protocol Last Admin: 12/21/16 21:46 Dose: 5,000 units Hydralazine HCl (Apresoline) 10 mg IVP Q6 PRN PRN Reason: Systolic Blood Pressure Last Admin: 12/16/16 06:40 Dose: 10 mg Hydromorphone HCl (Dilaudid) 0.5 mg IVP Q4H PRN PRN Reason: Pain, severe (8-10) Last Admin: 12/22/16 06:38 Dose: 0.5 mg Sodium Chloride (Sodium Chloride 0.9%) 1,000 mls @ 100 mls/hr IV .Q10H [facility] Last Admin: 12/22/16 07:03 Dose: 100 mls/hr Piperacillin Sod/Tazobactam Sod (Zosyn 3.375 In Ns 100ml) 100 mls @ 200 mls/hr IVPB Q6 [facility] PRN Reason: Protocol Stop: 01/05/17 12:01 Insulin Detemir (Levemir) 25 unit SC [facility] Last Admin: 12/21/16 21:55 Dose: 25 unit Insulin Human Regular (Humulin R Low) 0 units SC ACHS [facility] PRN Reason: Protocol Last Admin: 12/22/16 07:50 Dose: Not Given Linezolid (Zyvox) 600 mg PO BID [facility] PRN Reason: Protocol Stop: 12/29/16 18:01 Last Admin: 12/21/16 17:39 Dose: 600 mg Lorazepam (Ativan) 0.5 mg PO TID PRN; Protocol PRN Reason: Anxiety Last Admin: 12/20/16 09:08 Dose: 0.5 mg Metoprolol Tartrate (Lopressor) 25 mg PO BID [facility] Last Admin: 12/21/16 17:40 Dose: 25 mg Ondansetron HCl (Zofran Inj) 4 mg IVP Q4H PRN PRN Reason: Nausea/Vomiting Pantoprazole Sodium (Protonix Ec Tab) 40 mg PO 0600 [facility] Last Admin: 12/22/16 06:43 Dose: 40 mg Trazodone HCl (Desyrel) 50 mg PO HS [facility] Last Admin: 12/21/16 21:45 Dose: 50 mg - Labs Labs: 12/22/16 06:30 12/22/16 06:30 PT 11.6 Seconds (9.9-11.8) 11/25/16 03:00 INR 1.07 (0.93-1.08) 11/25/16 03:00 APTT 24.2 Seconds (23.7-30.8) 11/25/16 03:00 - Constitutional Appears: Non-toxic, No Acute Distress - Extremities Exam Extremities Exam: absent: Calf Tenderness Additional comments: Left foot focused exam: Dressing to left foot appears c/d/i, seen again not wearing offloading boots to feet Vasc: DP and PT pulses are palpable 1/4 bilaterally, MILK PICKUP DRIVER < 3 seconds to all digits, temperature gradient WNL, No pitting or non-pitting edema noted Derm: Full thickness ulceration noted to the left heel measuring approximately 3.8x 3.5x0.4 cm with 100% granular base with no probe to bone noted, no purulence, no fluctuance, no active drainage noted, (-) probe to bone, no periwound erythema, no malodor, no clinical suspicion of infection Neuro: protective pedal sensation is grossly diminished Ortho: tenderness to palpation of the left heel - Neurological Exam Neurological Exam: Alert, Awake - Psychiatric Exam Psychiatric exam: Flat Affect Assessment and Plan - Assessment and Plan (Free Text) Assessment: 51 y/o female seen at bedside with unstageable ulceration to left heel with OM Plan: Patient S&E at bedside with Dr. Hughes present Chart, labs, vitals reviewed: afebrile, WBC @ 5.5 today Ulceration cleansed with sterile water and dressed using petroleum gauze, ABD and kerlix. Pt is stable from podiatry standpoint to be D/C to [facility] for [facility] abx for + OM Patient to follow up with her surgeon for further wound treatment Podiatry will follow <Tyler Hughes - Last Filed: 12/23/16 09:12> Objective - Vital Signs/Intake and Output Vital Signs (last 24 hours): Temp Pulse Resp BP Pulse Ox 98 F 89 20 128/85 98 12/23/16 08:17 12/23/16 08:17 12/23/16 08:17 12/23/16 08:17 12/23/16 08:17 Intake and Output: 12/23/16 12/23/16 06:59 18:59 Intake Total 720 320 Output Total 550 Balance 170 320 - Medications Medications: Current Medications Albuterol/Ipratropium (Duoneb 3 Mg/0.5 Mg (3 Ml) Ud) 3 ml IH [id number] PRN PRN Reason: Shortness of Breath Atorvastatin Calcium (Lipitor) 20 mg PO DIN [facility] Last Admin: 12/22/16 17:38 Dose: 20 mg Benzocaine/Menthol (Cepacol Sore Throat) 1 mickey MT Q2H PRN PRN Reason: Sore Throat Last Admin: 12/18/16 17:18 Dose: 1 mickey Clopidogrel Bisulfate (Plavix) 75 mg PO DAILY [facility] Last Admin: 12/22/16 11:03 Dose: 75 mg Diphenhydramine HCl (Benadryl) 25 mg PO Q6 PRN PRN Reason: Itching / Pruritus Last Admin: 12/20/16 09:26 Dose: 25 mg Diphenhydramine HCl (Benadryl) 25 mg PO HS PRN PRN Reason: Insomnia Last Admin: 12/22/16 21:19 Dose: 25 mg Docusate Sodium (Colace) 100 mg PO BID PRN PRN Reason: Constipation Last Admin: 12/19/16 09:27 Dose: 100 mg Gabapentin (Neurontin) 300 mg PO TID [facility] PRN Reason: Protocol Last Admin: 12/22/16 17:38 Dose: 300 mg Heparin Sodium (Porcine) (Heparin) 5,000 units SC Q12 [facility] PRN Reason: Protocol Last Admin: 12/22/16 21:23 Dose: Not Given Hydralazine HCl (Apresoline) 10 mg IVP Q6 PRN PRN Reason: Systolic Blood Pressure Last Admin: 12/16/16 06:40 Dose: 10 mg Hydromorphone HCl (Dilaudid) 0.5 mg IVP Q4H PRN PRN Reason: Pain, severe (8-10) Last Admin: 12/23/16 05:15 Dose: 0.5 mg Piperacillin Sod/Tazobactam Sod (Zosyn 3.375 In Ns 100ml) 100 mls @ 200 mls/hr IVPB Q6 [facility] PRN Reason: Protocol Stop: 01/05/17 12:01 Last Admin: 12/23/16 05:16 Dose: 200 mls/hr Insulin Detemir (Levemir) 25 unit SC HS [facility] Last Admin: 12/22/16 22:05 Dose: 25 unit Insulin Human Regular (Humulin R Low) 0 units SC ACHS [facility] PRN Reason: Protocol Last Admin: 12/22/16 23:58 Dose: Not Given Linezolid (Zyvox) 600 mg PO BID [facility] PRN Reason: Protocol Stop: 12/29/16 18:01 Last Admin: 12/22/16 17:39 Dose: 600 mg Lorazepam (Ativan) 0.5 mg PO TID PRN; Protocol PRN Reason: Anxiety Last Admin: 12/20/16 09:08 Dose: 0.5 mg Metoprolol Tartrate (Lopressor) 25 mg PO BID [facility] Last Admin: 12/22/16 17:38 Dose: 25 mg Morphine Sulfate (Morphine Extended Release Tab) 30 mg PO Q12 [facility] Last Admin: 12/22/16 21:18 Dose: 30 mg Ondansetron HCl (Zofran Inj) 4 mg IVP Q4H PRN PRN Reason: Nausea/Vomiting Pantoprazole Sodium (Protonix Ec Tab) 40 mg PO 0600 [facility] Last Admin: 12/23/16 05:17 Dose: 40 mg Trazodone HCl (Desyrel) 50 mg PO HS [facility] Last Admin: 12/22/16 21:23 Dose: Not Given - Labs Labs: 12/22/16 06:30 12/22/16 06:30 PT 11.6 Seconds (9.9-11.8) 11/25/16 03:00 INR 1.07 (0.93-1.08) 11/25/16 03:00 APTT 24.2 Seconds (23.7-30.8) 11/25/16 03:00 Attending/Attestation - Attestation I have personally seen and examined this patient.: Yes I have fully participated in the care of the patient.: Yes I have reviewed all pertinent clinical information, including history, physical exam and plan: Yes
[2016-12-22] MEDS: Piperacillin/Tazobact 3.375 gm 100 ML IVPB SCH ×3 (11:02→23:21)
--- NOTE | 2016-12-22 11:52 | CP.PCM.PN ---
<Edda Blackman - Last Filed: 12/22/16 13:08> Subjective - Date & Time of Evaluation Date of Evaluation: 12/22/16 Time of Evaluation: 12:55 - Subjective Subjective: Progress note for Dr. Crissy Le Patient seen and examined at bedside. Patient has no acute complaints. No acute events overnight. Patient denies fever, chills, chest pain. Patient admits to cough, crackles, SOB. Objective - Vital Signs/Intake and Output Vital Signs (last 24 hours): Temp Pulse Resp BP Pulse Ox 98.1 F 80 18 138/80 99 12/21/16 20:00 12/21/16 20:00 12/21/16 20:00 12/21/16 20:00 12/21/16 20:00 Intake and Output: 12/22/16 12/22/16 06:59 18:59 Intake Total 240 300 Output Total 250 Balance -10 300 - Medications Medications: Current Medications Albuterol/Ipratropium (Duoneb 3 Mg/0.5 Mg (3 Ml) Ud) 3 ml IH [id number] PRN PRN Reason: Shortness of Breath Atorvastatin Calcium (Lipitor) 20 mg PO DIN [facility] Last Admin: 12/21/16 17:01 Dose: 20 mg Benzocaine/Menthol (Cepacol Sore Throat) 1 mickey MT Q2H PRN PRN Reason: Sore Throat Last Admin: 12/18/16 17:18 Dose: 1 mickey Clopidogrel Bisulfate (Plavix) 75 mg PO DAILY [facility] Last Admin: 12/22/16 11:03 Dose: 75 mg Diphenhydramine HCl (Benadryl) 25 mg PO Q6 PRN PRN Reason: Itching / Pruritus Last Admin: 12/20/16 09:26 Dose: 25 mg Diphenhydramine HCl (Benadryl) 25 mg PO HS PRN PRN Reason: Insomnia Last Admin: 12/21/16 22:01 Dose: 25 mg Docusate Sodium (Colace) 100 mg PO BID PRN PRN Reason: Constipation Last Admin: 12/19/16 09:27 Dose: 100 mg Gabapentin (Neurontin) 300 mg PO TID [facility] PRN Reason: Protocol Last Admin: 12/22/16 11:02 Dose: 300 mg Heparin Sodium (Porcine) (Heparin) 5,000 units SC Q12 [facility] PRN Reason: Protocol Last Admin: 12/22/16 11:13 Dose: Not Given Hydralazine HCl (Apresoline) 10 mg IVP Q6 PRN PRN Reason: Systolic Blood Pressure Last Admin: 12/16/16 06:40 Dose: 10 mg Hydromorphone HCl (Dilaudid) 0.5 mg IVP Q4H PRN PRN Reason: Pain, severe (8-10) Last Admin: 12/22/16 11:03 Dose: 0.5 mg Sodium Chloride (Sodium Chloride 0.9%) 1,000 mls @ 100 mls/hr IV .Q10H [facility] Last Admin: 12/22/16 07:03 Dose: 100 mls/hr Piperacillin Sod/Tazobactam Sod (Zosyn 3.375 In Ns 100ml) 100 mls @ 200 mls/hr IVPB Q6 [facility] PRN Reason: Protocol Stop: 01/05/17 12:01 Last Admin: 12/22/16 11:02 Dose: 200 mls/hr Insulin Detemir (Levemir) 25 unit SC [facility] Last Admin: 12/21/16 21:55 Dose: 25 unit Insulin Human Regular (Humulin R Low) 0 units SC ACHS [facility] PRN Reason: Protocol Last Admin: 12/22/16 10:57 Dose: Not Given Linezolid (Zyvox) 600 mg PO BID [facility] PRN Reason: Protocol Stop: 12/29/16 18:01 Last Admin: 12/22/16 11:02 Dose: 600 mg Lorazepam (Ativan) 0.5 mg PO TID PRN; Protocol PRN Reason: Anxiety Last Admin: 12/20/16 09:08 Dose: 0.5 mg Metoprolol Tartrate (Lopressor) 25 mg PO BID [facility] Last Admin: 12/22/16 11:03 Dose: 25 mg Ondansetron HCl (Zofran Inj) 4 mg IVP Q4H PRN PRN Reason: Nausea/Vomiting Pantoprazole Sodium (Protonix Ec Tab) 40 mg PO 0600 [facility] Last Admin: 12/22/16 06:43 Dose: 40 mg Trazodone HCl (Desyrel) 50 mg PO HS [facility] Last Admin: 12/21/16 21:45 Dose: 50 mg - Labs Labs: 12/22/16 06:30 07/31/17 06:30 PT 11.6 Seconds (9.9-11.8) 11/25/16 03:00 INR 1.07 (0.93-1.08) 11/25/16 03:00 APTT 24.2 Seconds (23.7-30.8) 11/25/16 03:00 - Constitutional Appears: No Acute Distress - Head Exam Head Exam: NORMAL INSPECTION - Eye Exam Eye Exam: EOMI, Normal appearance - ENT Exam ENT Exam: Mucous Membranes Moist - Neck Exam Neck Exam: Full ROM, Normal Inspection - Respiratory Exam Respiratory Exam: NORMAL BREATHING PATTERN. absent: Decreased Breath Sounds, Rhonchi - Cardiovascular Exam Cardiovascular Exam: REGULAR RHYTHM - GI/Abdominal Exam GI & Abdominal Exam: Soft. absent: Tenderness Assessment and Plan - Assessment and Plan (Free Text) Assessment: 51F presents with Chest pain, L heel pain with a history of DVT, HTN, diabetes, hyperlipidemia, uterine cancer, lung cancer and thromboembolic disease. Plan: 1. 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 Elevated BUN NS @ 100 cc/hr BUN/Cr: 41/1.7 3. Hyperkalemia, resolved K+ 4.5 12/22 4. Dysphagia -will continue to monitor at this time and obtain swallowing study when clinically indicated 5. Constipation - PRN miralax - will cont to monitor for diarrhea 6. Anemia daily CBCs 7. Asthma -Duoneb q4 PRN 8. GI/DVT prophylaxis -protonix/ SCD <Crissy HER,Mimi - Last Filed: 12/26/16 08:05> Objective - Vital Signs/Intake and Output Vital Signs (last 24 hours): Temp Pulse Resp BP Pulse Ox 98.1 F 80 20 140/80 96 12/24/16 08:00 12/24/16 08:00 12/24/16 08:00 12/24/16 08:00 12/24/16 08:00 - Labs Labs: 12/24/16 08:00 12/22/16 06:30 PT 11.6 Seconds (9.9-11.8) 11/25/16 03:00 INR 1.07 (0.93-1.08) 11/25/16 03:00 APTT 24.2 Seconds (23.7-30.8) 11/25/16 03:00 Attending/Attestation - Attestation I have personally seen and examined this patient.: Yes I have fully participated in the care of the patient.: Yes I have reviewed all pertinent clinical information, including history, physical exam and plan: Yes Notes (Text): 12/26/16 08:02 51 year old female with PMH of [place], diabetes, hypertension, chronic heel ulcer , chronic OM on IV zosyn and zyvox for Left heel osteomyelitis, need total 6 weeks of antibiotics.Patient also has CKD, creatinin is 1.7 today close to her base line , Patient has chronic anemia and hemoglobn is stable.Patient was also evaluated by Ophthalmology and is found to have Cataract, will need out patient surgery. Patient was accepted by one facility last Thursday but patient has refused to go, had prolong multidisciplinary meeting with patient .Case management is working on disposition.
[2016-12-22] MEDS: Morphine 30 mg SR Tab PO SCH ×2 (14:18→21:18)
--- NOTE | 2016-12-22 16:17 | CP.PCM.CON ---
History of Present Illness - History of Present Illness History of Present Illness: follow-up note: this clinical writer signed off, but medical team asked for f/u pt refused to leave the hospital today, saying that she does not want to go to the [facility] and she wants to go to the [facility] at [facility], pt's explanations were irrational, pt said that her family is closer, but nobody visiting pt, moreover pt does not have a phone number, pt also does not have address of her family. pt is passive aggressive. pt is participating in tx plan, was taking her meds, no behavioral issues, pt is not psychotic. d/c planning is problematic, because pt refused to go to [facility] which is willing to accept pt. no other [facility] accepting pt. MSE: pt alert, knows the name of the hospital, month, pt was able to recognize this clinical writer, "travis Green". hygiene is better, intense eye contact, speech was underproductive "yes-no", mood "I am doing fine....", affect was irritable and angry especially when pt was asked about d/c plan, pt seems to be annoyed, thought process is goal directed, thought content: denied v/a/t hallucinations, pt guarded but not paranoid. pt has basic understanding of her medical dx, judgment is fair, impulses are well controlled Impression: delirium is better r/o r/o paranoid personality r/o borderline personality passive aggressive Plan: pt is improving pt has rights to refuse psychotropic medications SW is trying to find [facility] med compliance is good no behavioral incidents improved insight ID as per medical team Podiatry PT Past Patient History - Tetanus Immunizations Tetanus Immunization: Unknown - Past Medical History & Family History Past Medical History?: Yes - Past Social History Smoking Status: Never Smoked Alcohol: None Drugs: Denies Home Situation {Lives}: With Family - CARDIAC Hx Cardiac Disorders: Yes (ID) Hx Hypertension: Yes - PULMONARY Hx Asthma: Yes Hx Lung Cancer: Yes - HEENT Hx HEENT Problems: Yes Other/Comment: diff vision - RENAL Hx Renal Failure: Yes (CKD; R kidney removed d/t Ca) - ENDOCRINE/METABOLIC Hx Diabetes Mellitus Type 2: Yes - HEMATOLOGICAL/ONCOLOGICAL Hx Anemia: Yes Hx Cancer: Yes Hx Chemotherapy: Yes - INTEGUMENTARY Other/Comment: osteomylitis r foot - MUSCULOSKELETAL/RHEUMATOLOGICAL Hx Osteomyelitis: Yes (r foot) Other/Comment: dvt rue - GASTROINTESTINAL Hx Gastrointestinal Disorders: No - GENITOURINARY/GYNECOLOGICAL Hx Genitourinary Disorders: No - PSYCHIATRIC Hx Bipolar Disorder: Yes Hx Depression: Yes Hx Substance Use: No Other/Comment: drug seeking - SURGICAL HISTORY Other/Comment: r nephrectomy/r foot. / picc left upper arm Meds Home Medications: Home Medication List Medication Instructions Recorded Confirmed Type Insulin Detemir [Levemir] 25 unit SC HS unit 12/19/16 Rx Linezolid [Zyvox] 600 mg PO BID tab 12/19/16 Rx Allergies/Adverse Reactions: Allergies Allergy/AdvReac Type Severity Reaction Status Date / Time EGG Allergy ITCHING Verified 12/09/16 17:07 ketorolac [From Toradol] Allergy RASH Verified 11/25/16 02:56 - Medications Medications: Current Medications Albuterol/Ipratropium (Duoneb 3 Mg/0.5 Mg (3 Ml) Ud) 3 ml IH [id number] PRN PRN Reason: Shortness of Breath Atorvastatin Calcium (Lipitor) 20 mg PO DIN [facility] Last Admin: 12/21/16 17:01 Dose: 20 mg Benzocaine/Menthol (Cepacol Sore Throat) 1 mickey MT Q2H PRN PRN Reason: Sore Throat Last Admin: 12/18/16 17:18 Dose: 1 mickey Clopidogrel Bisulfate (Plavix) 75 mg PO DAILY [facility] Last Admin: 12/22/16 11:03 Dose: 75 mg Diphenhydramine HCl (Benadryl) 25 mg PO Q6 PRN PRN Reason: Itching / Pruritus Last Admin: 12/20/16 09:26 Dose: 25 mg Diphenhydramine HCl (Benadryl) 25 mg PO HS PRN PRN Reason: Insomnia Last Admin: 12/21/16 22:01 Dose: 25 mg Docusate Sodium (Colace) 100 mg PO BID PRN PRN Reason: Constipation Last Admin: 12/19/16 09:27 Dose: 100 mg Gabapentin (Neurontin) 300 mg PO TID [facility] PRN Reason: Protocol Last Admin: 12/22/16 14:17 Dose: 300 mg Heparin Sodium (Porcine) (Heparin) 5,000 units SC Q12 [facility] PRN Reason: Protocol Last Admin: 12/22/16 11:13 Dose: Not Given Hydralazine HCl (Apresoline) 10 mg IVP Q6 PRN PRN Reason: Systolic Blood Pressure Last Admin: 12/16/16 06:40 Dose: 10 mg Hydromorphone HCl (Dilaudid) 0.5 mg IVP Q4H PRN PRN Reason: Pain, severe (8-10) Last Admin: 12/22/16 15:02 Dose: 0.5 mg Sodium Chloride (Sodium Chloride 0.9%) 1,000 mls @ 100 mls/hr IV .Q10H [facility] Last Admin: 12/22/16 07:03 Dose: 100 mls/hr Piperacillin Sod/Tazobactam Sod (Zosyn 3.375 In Ns 100ml) 100 mls @ 200 mls/hr IVPB Q6 [facility] PRN Reason: Protocol Stop: 01/05/17 12:01 Last Admin: 12/22/16 11:02 Dose: 200 mls/hr Insulin Detemir (Levemir) 25 unit SC [facility] Last Admin: 12/21/16 21:55 Dose: 25 unit Insulin Human Regular (Humulin R Low) 0 units SC ACHS [facility] PRN Reason: Protocol Last Admin: 12/22/16 10:57 Dose: Not Given Linezolid (Zyvox) 600 mg PO BID [facility] PRN Reason: Protocol Stop: 12/29/16 18:01 Last Admin: 12/22/16 11:02 Dose: 600 mg Lorazepam (Ativan) 0.5 mg PO TID PRN; Protocol PRN Reason: Anxiety Last Admin: 12/20/16 09:08 Dose: 0.5 mg Metoprolol Tartrate (Lopressor) 25 mg PO BID [facility] Last Admin: 12/22/16 11:03 Dose: 25 mg Morphine Sulfate (Morphine Extended Release Tab) 30 mg PO Q12 [facility] Last Admin: 12/22/16 14:18 Dose: 30 mg Ondansetron HCl (Zofran Inj) 4 mg IVP Q4H PRN PRN Reason: Nausea/Vomiting Pantoprazole Sodium (Protonix Ec Tab) 40 mg PO 0600 [facility] Last Admin: 12/22/16 06:43 Dose: 40 mg Trazodone HCl (Desyrel) 50 mg PO [facility] Last Admin: 12/21/16 21:45 Dose: 50 mg Results - Vital Signs Recent Vital Signs: Last Vital Signs Temp 98.1 F 12/21/16 20:00 Pulse 80 12/21/16 20:00 Resp 18 12/21/16 20:00 BP 138/80 12/21/16 20:00 Pulse Ox 99 12/21/16 20:00 - Labs Result Diagrams: 12/22/16 06:30 12/22/16 06:30 Labs: Laboratory Results - last 24 hr 12/21/16 12/21/16 12/21/16 16:00 16:00 16:00 WBC RBC Hgb Hct MCV MCH MCHC RDW Plt Count MPV Gran % Lymph % (Auto) [place] % (Auto) Eos % (Auto) Baso % (Auto) Gran # Lymph # [place] # Eos # Baso # Sodium Potassium Chloride Carbon Dioxide Anion Gap BUN Creatinine Est GFR ( Amer) Est GFR (Non-Af Amer) Random Glucose Calcium Total Bilirubin AST ALT Alkaline Phosphatase Total Protein Albumin Globulin Albumin/Globulin Ratio Urine Color Yellow Urine Appearance Clear Urine pH 6.5 Ur Specific [place] 1.015 Urine Protein 100 H Urine Glucose (UA) Negative Urine Ketones Negative Urine Blood Small H Urine Nitrate Negative Urine Bilirubin Negative Urine Urobilinogen 0.2 Ur Leukocyte Esterase Small H Urine RBC 2 - 5 Urine WBC 5 - 10 Ur Epithelial Cells 3 - 4 Urine Bacteria Small Urine Other Uyeast Urine Eosinophils Negative Ur Random Creatinine 48 Ur Random Sodium 131 Ur Random Potassium 32.6 12/22/16 12/22/16 06:30 06:30 WBC 5.5 RBC 3.15 L Hgb 8.1 L Hct 24.9 L MCV 79.0 L MCH 25.7 MCHC 32.5 RDW 15.5 H Plt Count 114 L MPV 8.8 Gran % 49.8 L Lymph % (Auto) 37.1 H [place] % (Auto) 6.7 H Eos % (Auto) 6.2 H Baso % (Auto) 0.2 Gran # 2.75 Lymph # 2.1 [place] # 0.4 Eos # 0.3 Baso # 0.01 Sodium 139 Potassium 4.5 Chloride 108 H Carbon Dioxide 21 Anion Gap 15 BUN 41 H Creatinine 1.7 H Est GFR ( Amer) 38 Est GFR (Non-Af Amer) 31 Random Glucose 70 Calcium 8.9 Total Bilirubin 0.4 AST 40 H ALT 43 Alkaline Phosphatase 419 H Total Protein 6.6 Albumin 3.2 Globulin 3.4 Albumin/Globulin Ratio 0.9 L Urine Color Urine Appearance Urine pH Ur Specific [place] Urine Protein Urine Glucose (UA) Urine Ketones Urine Blood Urine Nitrate Urine Bilirubin Urine Urobilinogen Ur Leukocyte Esterase Urine RBC Urine WBC Ur Epithelial Cells Urine Bacteria Urine Other Urine Eosinophils Ur Random Creatinine Ur Random Sodium Ur Random Potassium
--- NOTE | 2016-12-22 16:28 | CP.PCM.PN ---
Subjective - Date & Time of Evaluation Date of Evaluation: 12/22/16 Time of Evaluation: 10:40 - Subjective Subjective: Comfortable in bed, afebrile. Objective - Vital Signs/Intake and Output Vital Signs (last 24 hours): Temp Pulse Resp BP Pulse Ox 98.1 F 80 18 138/80 99 12/21/16 20:00 12/21/16 20:00 12/21/16 20:00 12/21/16 20:00 12/21/16 20:00 Intake and Output: 12/22/16 12/22/16 06:59 18:59 Intake Total 240 Output Total 250 Balance -10 - Medications Medications: Current Medications Albuterol/Ipratropium (Duoneb 3 Mg/0.5 Mg (3 Ml) Ud) 3 ml IH [id number] PRN PRN Reason: Shortness of Breath Atorvastatin Calcium (Lipitor) 20 mg PO DIN [facility] Last Admin: 12/21/16 17:01 Dose: 20 mg Benzocaine/Menthol (Cepacol Sore Throat) 1 mickey MT Q2H PRN PRN Reason: Sore Throat Last Admin: 12/18/16 17:18 Dose: 1 mickey Clopidogrel Bisulfate (Plavix) 75 mg PO DAILY [facility] Last Admin: 12/21/16 10:56 Dose: 75 mg Diphenhydramine HCl (Benadryl) 25 mg PO Q6 PRN PRN Reason: Itching / Pruritus Last Admin: 12/20/16 09:26 Dose: 25 mg Diphenhydramine HCl (Benadryl) 25 mg PO HS PRN PRN Reason: Insomnia Last Admin: 12/21/16 22:01 Dose: 25 mg Docusate Sodium (Colace) 100 mg PO BID PRN PRN Reason: Constipation Last Admin: 12/19/16 09:27 Dose: 100 mg Gabapentin (Neurontin) 300 mg PO TID [facility] PRN Reason: Protocol Last Admin: 12/21/16 17:39 Dose: 300 mg Heparin Sodium (Porcine) (Heparin) 5,000 units SC Q12 [facility] PRN Reason: Protocol Last Admin: 12/21/16 21:46 Dose: 5,000 units Hydralazine HCl (Apresoline) 10 mg IVP Q6 PRN PRN Reason: Systolic Blood Pressure Last Admin: 12/16/16 06:40 Dose: 10 mg Hydromorphone HCl (Dilaudid) 0.5 mg IVP Q4H PRN PRN Reason: Pain, severe (8-10) Last Admin: 12/22/16 06:38 Dose: 0.5 mg Sodium Chloride (Sodium Chloride 0.9%) 1,000 mls @ 100 mls/hr IV .Q10H [facility] Last Admin: 12/22/16 07:03 Dose: 100 mls/hr Piperacillin Sod/Tazobactam Sod (Zosyn 3.375 In Ns 100ml) 100 mls @ 200 mls/hr IVPB Q6 [facility] PRN Reason: Protocol Stop: 01/05/17 12:01 Insulin Detemir (Levemir) 25 unit SC HS [facility] Last Admin: 12/21/16 21:55 Dose: 25 unit Insulin Human Regular (Humulin R Low) 0 units SC ACHS [facility] PRN Reason: Protocol Last Admin: 12/22/16 07:50 Dose: Not Given Linezolid (Zyvox) 600 mg PO BID [facility] PRN Reason: Protocol Stop: 12/29/16 18:01 Last Admin: 12/21/16 17:39 Dose: 600 mg Lorazepam (Ativan) 0.5 mg PO TID PRN; Protocol PRN Reason: Anxiety Last Admin: 12/20/16 09:08 Dose: 0.5 mg Metoprolol Tartrate (Lopressor) 25 mg PO BID [facility] Last Admin: 12/21/16 17:40 Dose: 25 mg Ondansetron HCl (Zofran Inj) 4 mg IVP Q4H PRN PRN Reason: Nausea/Vomiting Pantoprazole Sodium (Protonix Ec Tab) 40 mg PO 0600 [facility] Last Admin: 12/22/16 06:43 Dose: 40 mg Trazodone HCl (Desyrel) 50 mg PO [facility] Last Admin: 12/21/16 21:45 Dose: 50 mg - Labs Labs: 12/22/16 06:30 12/22/16 06:30 PT 11.6 Seconds (9.9-11.8) 11/25/16 03:00 INR 1.07 (0.93-1.08) 11/25/16 03:00 APTT 24.2 Seconds (23.7-30.8) 11/25/16 03:00 - Constitutional Appears: Non-toxic, No Acute Distress - Head Exam Head Exam: NORMAL INSPECTION - Neck Exam Neck Exam: absent: Meningismus - Respiratory Exam Respiratory Exam: Decreased Breath Sounds - Cardiovascular Exam Cardiovascular Exam: +S1, +S2 - GI/Abdominal Exam GI & Abdominal Exam: Soft. absent: Tenderness Assessment and Plan - Assessment and Plan (Free Text) Plan: Assessment Probable left foot osteomyelitis (was on antibiotics prior to admission), growing staph aureus and multidrug resistant Proteus only sensitive to Zosyn, and MRSA S/P left PICC line placement dyslipidemia DM HTN history of cholecystitis chronic renal failure history of uterine cancer CAD history of depression history of DVT Plan continue Zosyn and Zyvox (day 26); discussed with Dr. Brady - patient has exposed bone will follow clinically while the patient is in the hospital; patient should have 4-6 weeks of Zosyn and Zyvox with weekly ESR, CRP, CBC, CMP
[2016-12-22] MEDS: Insulin Detemir 100 units/ml Vial (Levemir) SC SCH (22:05)
[2016-12-23] MEDS: HYDROmorphone 0.5 mg/0.5 ml ISec IVP PRN ×4 (05:15→21:06)
[2016-12-23] MEDS: Piperacillin/Tazobact 3.375 gm 100 ML IVPB SCH ×4 (05:16→23:09)
[2016-12-23] MEDS: Pantoprazole 40 mg EC Tab PO SCH (05:17)
[2016-12-23 07:42] VITALS: RESP 20
[2016-12-23] MEDS: Insulin Reg-LOW-Coverage SC SCH ×4 (09:55→22:55)
[2016-12-23] MEDS: Morphine 30 mg SR Tab PO SCH ×2 (09:59→22:54)
--- NOTE | 2016-12-23 11:34 | CP.PCM.PN ---
<Lili Schulz - Last Filed: 12/23/16 11:31> Subjective - Date & Time of Evaluation Date of Evaluation: 12/23/16 Time of Evaluation: 11:00 - Subjective Subjective: 51 y/o female pt seen at bedside today regarding left heel ulceration. Pt seen resting comfortably in bed at time of visit. Patient's alertness in greatly improved, absent prior noted lethargy, and answering questions directly. Denies any pedal pain today. Denies any problems at this time. Objective - Vital Signs/Intake and Output Vital Signs (last 24 hours): Temp Pulse Resp BP Pulse Ox 98 F 89 20 128/85 98 12/23/16 08:17 12/23/16 08:17 12/23/16 08:17 12/23/16 09:58 12/23/16 08:17 Intake and Output: 12/23/16 12/23/16 06:59 18:59 Intake Total 720 320 Output Total 550 Balance 170 320 - Medications Medications: Current Medications Albuterol/Ipratropium (Duoneb 3 Mg/0.5 Mg (3 Ml) Ud) 3 ml IH [id number] PRN PRN Reason: Shortness of Breath Atorvastatin Calcium (Lipitor) 20 mg PO DIN [facility] Last Admin: 12/22/16 17:38 Dose: 20 mg Benzocaine/Menthol (Cepacol Sore Throat) 1 mickey MT Q2H PRN PRN Reason: Sore Throat Last Admin: 12/18/16 17:18 Dose: 1 mickey Clopidogrel Bisulfate (Plavix) 75 mg PO DAILY [facility] Last Admin: 12/23/16 09:58 Dose: 75 mg Diphenhydramine HCl (Benadryl) 25 mg PO Q6 PRN PRN Reason: Itching / Pruritus Last Admin: 12/20/16 09:26 Dose: 25 mg Diphenhydramine HCl (Benadryl) 25 mg PO HS PRN PRN Reason: Insomnia Last Admin: 12/22/16 21:19 Dose: 25 mg Docusate Sodium (Colace) 100 mg PO BID PRN PRN Reason: Constipation Last Admin: 12/19/16 09:27 Dose: 100 mg Gabapentin (Neurontin) 300 mg PO TID [facility] PRN Reason: Protocol Last Admin: 12/23/16 09:58 Dose: 300 mg Heparin Sodium (Porcine) (Heparin) 5,000 units SC Q12 [facility] PRN Reason: Protocol Last Admin: 12/23/16 09:57 Dose: Not Given Hydralazine HCl (Apresoline) 10 mg IVP Q6 PRN PRN Reason: Systolic Blood Pressure Last Admin: 12/16/16 06:40 Dose: 10 mg Hydromorphone HCl (Dilaudid) 0.5 mg IVP Q4H PRN PRN Reason: Pain, severe (8-10) Last Admin: 12/23/16 05:15 Dose: 0.5 mg Piperacillin Sod/Tazobactam Sod (Zosyn 3.375 In Ns 100ml) 100 mls @ 200 mls/hr IVPB Q6 [facility] PRN Reason: Protocol Stop: 01/05/17 12:01 Last Admin: 12/23/16 05:16 Dose: 200 mls/hr Insulin Detemir (Levemir) 25 unit SC HS [facility] Last Admin: 12/22/16 22:05 Dose: 25 unit Insulin Human Regular (Humulin R Low) 0 units SC ACHS [facility] PRN Reason: Protocol Last Admin: 12/23/16 09:55 Dose: Not Given Linezolid (Zyvox) 600 mg PO BID [facility] PRN Reason: Protocol Stop: 12/29/16 18:01 Last Admin: 12/23/16 09:59 Dose: 600 mg Lorazepam (Ativan) 0.5 mg PO TID PRN; Protocol PRN Reason: Anxiety Last Admin: 12/20/16 09:08 Dose: 0.5 mg Metoprolol Tartrate (Lopressor) 25 mg PO BID [facility] Last Admin: 12/23/16 09:58 Dose: 25 mg Morphine Sulfate (Morphine Extended Release Tab) 30 mg PO Q12 [facility] Last Admin: 12/23/16 09:59 Dose: 30 mg Ondansetron HCl (Zofran Inj) 4 mg IVP Q4H PRN PRN Reason: Nausea/Vomiting Pantoprazole Sodium (Protonix Ec Tab) 40 mg PO 0600 [facility] Last Admin: 12/23/16 05:17 Dose: 40 mg Trazodone HCl (Desyrel) 50 mg PO HS [facility] Last Admin: 12/22/16 21:23 Dose: Not Given - Labs Labs: 12/22/16 06:30 12/22/16 06:30 PT 11.6 Seconds (9.9-11.8) 11/25/16 03:00 INR 1.07 (0.93-1.08) 11/25/16 03:00 APTT 24.2 Seconds (23.7-30.8) 11/25/16 03:00 - Constitutional Appears: Well, Non-toxic, No Acute Distress - Extremities Exam Additional comments: Left foot focused exam: Dressing to left foot appears c/d/i, seen again not wearing offloading boots to feet Vasc: DP and PT pulses are palpable 1/4 bilaterally, [employer] < 3 seconds to all digits, temperature gradient WNL, No pitting or non-pitting edema noted Derm: Full thickness ulceration noted to the left heel measuring approximately 3.6 x 3.5 x 0.4 cm with 100% granular base with no probe to bone noted, no purulence, no fluctuance, no active drainage noted, (-) probe to bone, no periwound erythema, no malodor, no clinical suspicion of infection Neuro: protective pedal sensation is grossly diminished Ortho: tenderness to palpation of the left heel - Neurological Exam Neurological Exam: Alert, Awake, Oriented x3 - Psychiatric Exam Psychiatric exam: Normal Affect, Normal Mood Assessment and Plan - Assessment and Plan (Free Text) Assessment: 51 y/o female seen at bedside with 1) Smith grade 2 ulceration to left heel 2) Left calcaneal osteomyelitis. Plan: Patient S&E at bedside with Dr. Hughes present Chart, labs, vitals reviewed: afebrile, absent leukocytosis. Ulceration cleansed with sterile water and dressed using petroleum gauze, ABD and kerlix. Pt is stable from podiatry standpoint to be D/C to [facility] for osteomyelitis. Podiatry will continue to follow while inhouse. <Tyler Hughes - Last Filed: 12/24/16 11:33> Objective - Vital Signs/Intake and Output Vital Signs (last 24 hours): Temp Pulse Resp BP Pulse Ox 98.1 F 80 20 140/80 96 12/24/16 08:00 12/24/16 08:00 12/24/16 08:00 12/24/16 08:00 12/24/16 08:00 Intake and Output: 12/24/16 12/24/16 06:59 18:59 Intake Total 540 Output Total 300 Balance 240 - Medications Medications: Current Medications Albuterol/Ipratropium (Duoneb 3 Mg/0.5 Mg (3 Ml) Ud) 3 ml IH [id number] PRN PRN Reason: Shortness of Breath Atorvastatin Calcium (Lipitor) 20 mg PO DIN [facility] Last Admin: 12/23/16 17:02 Dose: 20 mg Benzocaine/Menthol (Cepacol Sore Throat) 1 mickey MT Q2H PRN PRN Reason: Sore Throat Last Admin: 12/18/16 17:18 Dose: 1 mickey Diphenhydramine HCl (Benadryl) 25 mg PO Q6 PRN PRN Reason: Itching / Pruritus Last Admin: 12/24/16 11:17 Dose: 25 mg Diphenhydramine HCl (Benadryl) 25 mg PO HS PRN PRN Reason: Insomnia Last Admin: 12/22/16 21:19 Dose: 25 mg Docusate Sodium (Colace) 100 mg PO BID PRN PRN Reason: Constipation Last Admin: 12/19/16 09:27 Dose: 100 mg Gabapentin (Neurontin) 300 mg PO TID [facility] PRN Reason: Protocol Last Admin: 12/24/16 11:00 Dose: 300 mg Heparin Sodium (Porcine) (Heparin) 5,000 units SC Q12 [facility] PRN Reason: Protocol Last Admin: 12/23/16 21:08 Dose: Not Given Hydralazine HCl (Apresoline) 10 mg IVP Q6 PRN PRN Reason: Systolic Blood Pressure Last Admin: 12/16/16 06:40 Dose: 10 mg Hydromorphone HCl (Dilaudid) 0.5 mg IVP Q4H PRN PRN Reason: Pain, severe (8-10) Last Admin: 12/24/16 08:18 Dose: 0.5 mg Piperacillin Sod/Tazobactam Sod (Zosyn 3.375 In Ns 100ml) 100 mls @ 200 mls/hr IVPB Q6 [facility] PRN Reason: Protocol Stop: 01/05/17 12:01 Last Admin: 12/24/16 06:01 Dose: 200 mls/hr Insulin Detemir (Levemir) 25 unit SC HS [facility] Last Admin: 12/23/16 22:56 Dose: 25 unit Insulin Human Regular (Humulin R Low) 0 units SC ACHS [facility] PRN Reason: Protocol Last Admin: 12/23/16 22:55 Dose: Not Given Linezolid (Zyvox) 600 mg PO BID [facility] PRN Reason: Protocol Stop: 12/29/16 18:01 Last Admin: 12/23/16 17:02 Dose: 600 mg Lorazepam (Ativan) 0.5 mg PO TID PRN; Protocol PRN Reason: Anxiety Last Admin: 12/20/16 09:08 Dose: 0.5 mg Morphine Sulfate (Morphine Extended Release Tab) 30 mg PO Q12 [facility] Last Admin: 12/24/16 11:00 Dose: 30 mg Ondansetron HCl (Zofran Inj) 4 mg IVP Q4H PRN PRN Reason: Nausea/Vomiting Pantoprazole Sodium (Protonix Ec Tab) 40 mg PO 0600 [facility] Last Admin: 12/24/16 06:02 Dose: 40 mg Trazodone HCl (Desyrel) 50 mg PO HS [facility] Last Admin: 12/23/16 21:07 Dose: Not Given - Labs Labs: 12/24/16 08:00 12/22/16 06:30 PT 11.6 Seconds (9.9-11.8) 11/25/16 03:00 INR 1.07 (0.93-1.08) 11/25/16 03:00 APTT 24.2 Seconds (23.7-30.8) 11/25/16 03:00 Attending/Attestation - Attestation I have personally seen and examined this patient.: Yes I have fully participated in the care of the patient.: Yes I have reviewed all pertinent clinical information, including history, physical exam and plan: Yes
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
--- NOTE | 2016-12-23 13:35 | CP.PCM.PN ---
<HiralEdda - Last Filed: 12/23/16 13:50> Subjective - Date & Time of Evaluation Date of Evaluation: 12/23/16 Time of Evaluation: 08:00 - Subjective Subjective: 51F PT seen and examined at bedside. Patient sounds aggravated and at the meeting, patient was upset and did not want to go to the [facility] that was arranged for the patient. Patient admits to pain on left heel. Patient did not answer anymore questions at time of visit due to aggravation. Objective - Vital Signs/Intake and Output Vital Signs (last 24 hours): Temp Pulse Resp BP Pulse Ox 98 F 89 20 128/85 98 12/23/16 08:17 12/23/16 08:17 12/23/16 08:17 12/23/16 09:58 12/23/16 08:17 Intake and Output: 12/23/16 12/23/16 06:59 18:59 Intake Total 720 320 Output Total 550 Balance 170 320 - Medications Medications: Current Medications Albuterol/Ipratropium (Duoneb 3 Mg/0.5 Mg (3 Ml) Ud) 3 ml IH [id number] PRN PRN Reason: Shortness of Breath Atorvastatin Calcium (Lipitor) 20 mg PO DIN [facility]KKI Last Admin: 12/22/16 17:38 Dose: 20 mg Benzocaine/Menthol (Cepacol Sore Throat) 1 mickey MT Q2H PRN PRN Reason: Sore Throat Last Admin: 12/18/16 17:18 Dose: 1 mickey Clopidogrel Bisulfate (Plavix) 75 mg PO DAILY [facility] Last Admin: 12/23/16 09:58 Dose: 75 mg Diphenhydramine HCl (Benadryl) 25 mg PO Q6 PRN PRN Reason: Itching / Pruritus Last Admin: 12/20/16 09:26 Dose: 25 mg Diphenhydramine HCl (Benadryl) 25 mg PO HS PRN PRN Reason: Insomnia Last Admin: 12/22/16 21:19 Dose: 25 mg Docusate Sodium (Colace) 100 mg PO BID PRN PRN Reason: Constipation Last Admin: 12/19/16 09:27 Dose: 100 mg Gabapentin (Neurontin) 300 mg PO TID [facility]I PRN Reason: Protocol Last Admin: 12/23/16 09:58 Dose: 300 mg Heparin Sodium (Porcine) (Heparin) 5,000 units SC Q12 [facility] PRN Reason: Protocol Last Admin: 12/23/16 09:57 Dose: Not Given Hydralazine HCl (Apresoline) 10 mg IVP Q6 PRN PRN Reason: Systolic Blood Pressure Last Admin: 12/16/16 06:40 Dose: 10 mg Hydromorphone HCl (Dilaudid) 0.5 mg IVP Q4H PRN PRN Reason: Pain, severe (8-10) Last Admin: 12/23/16 11:45 Dose: 0.5 mg Piperacillin Sod/Tazobactam Sod (Zosyn 3.375 In Ns 100ml) 100 mls @ 200 mls/hr IVPB Q6 [facility] PRN Reason: Protocol Stop: 01/05/17 12:01 Last Admin: 12/23/16 05:16 Dose: 200 mls/hr Insulin Detemir (Levemir) 25 unit SC HS [facility] Last Admin: 12/22/16 22:05 Dose: 25 unit Insulin Human Regular (Humulin R Low) 0 units SC ACHS [facility] PRN Reason: Protocol Last Admin: 12/23/16 09:55 Dose: Not Given Linezolid (Zyvox) 600 mg PO BID [facility] PRN Reason: Protocol Stop: 12/29/16 18:01 Last Admin: 12/23/16 09:59 Dose: 600 mg Lorazepam (Ativan) 0.5 mg PO TID PRN; Protocol PRN Reason: Anxiety Last Admin: 12/20/16 09:08 Dose: 0.5 mg Metoprolol Tartrate (Lopressor) 25 mg PO BID [facility] Last Admin: 12/23/16 09:58 Dose: 25 mg Morphine Sulfate (Morphine Extended Release Tab) 30 mg PO Q12 [facility] Last Admin: 12/23/16 09:59 Dose: 30 mg Ondansetron HCl (Zofran Inj) 4 mg IVP Q4H PRN PRN Reason: Nausea/Vomiting Pantoprazole Sodium (Protonix Ec Tab) 40 mg PO 0600 [facility] Last Admin: 12/23/16 05:17 Dose: 40 mg Trazodone HCl (Desyrel) 50 mg PO HS [facility] Last Admin: 12/22/16 21:23 Dose: Not Given - Labs Labs: 12/22/16 06:30 12/22/16 06:30 PT 11.6 Seconds (9.9-11.8) 11/25/16 03:00 INR 1.07 (0.93-1.08) 11/25/16 03:00 APTT 24.2 Seconds (23.7-30.8) 11/25/16 03:00 - Constitutional Appears: Agitated, Chronically Ill - Head Exam Head Exam: NORMAL INSPECTION - Eye Exam Eye Exam: EOMI, Normal appearance - ENT Exam ENT Exam: Mucous Membranes Moist - Neck Exam Neck Exam: Full ROM, Normal Inspection - Respiratory Exam Respiratory Exam: NORMAL BREATHING PATTERN. absent: Accessory Muscle Use, Respiratory Distress - Extremities Exam Extremities Exam: Full ROM. absent: Pedal Edema Additional comments: left calcaneal tenderness. wrapped in kerlix. No signs of drainage, purulence, erythema beyond the point of the initial wound. - Neurological Exam Neurological Exam: Alert, Awake, Oriented x3 Assessment and Plan - Assessment and Plan (Free Text) Assessment: 51 F with chest pain and left heel pain s/p osteodebridement 1. Osteomyelitis of L Calcaneus 2. Elevated BUN 3. Hyperkalemia, resolved 4. Dysphagia 5. Constipation 6. Anemia 7. Asthma 8. GI/DVT prophylaxis Plan: 1. Osteomyelitis of L Calcaneus -ID consulted -wound cultures showed MRSA and amikacin sensitive Proteus mirabilis treatment of left calcaneal infection Linezolid 600mg PO BID Zosyn 3.375 gm IVPB Q6 2. Elevated BUN BUN/Cr: 41/1.7 from 12/22 3. Hyperkalemia, resolved K+ 4.5 from 12/22 4. Dysphagia -will continue to monitor at this time and obtain swallowing study when clinically indicated Diet: CCD 5. Constipation - PRN miralax - will cont to monitor for diarrhea 6. Anemia daily CBCs 7. Asthma -Duoneb q4 PRN 8. GI/DVT prophylaxis -protonix/ SCD Care Management plan for DC: Await care management placement of patient into [facility]. Patient currently does not want to go to the [facility] that was currently set up for the patient. Edda Blackman DO PGY1 <Jorge Manuel - Last Filed: 12/24/16 16:32> Objective - Vital Signs/Intake and Output Vital Signs (last 24 hours): Temp Pulse Resp BP Pulse Ox 98.1 F 80 20 140/80 96 12/24/16 08:00 12/24/16 08:00 12/24/16 08:00 12/24/16 08:00 12/24/16 08:00 Intake and Output: 12/24/16 12/24/16 06:59 18:59 Intake Total 540 Output Total 300 Balance 240 - Medications Medications: Current Medications Albuterol/Ipratropium (Duoneb 3 Mg/0.5 Mg (3 Ml) Ud) 3 ml IH [id number] PRN PRN Reason: Shortness of Breath Atorvastatin Calcium (Lipitor) 20 mg PO DIN [facility]KKI Last Admin: 12/23/16 17:02 Dose: 20 mg Benzocaine/Menthol (Cepacol Sore Throat) 1 mickey MT Q2H PRN PRN Reason: Sore Throat Last Admin: 12/18/16 17:18 Dose: 1 mickey Diphenhydramine HCl (Benadryl) 25 mg PO Q6 PRN PRN Reason: Itching / Pruritus Last Admin: 12/24/16 11:17 Dose: 25 mg Diphenhydramine HCl (Benadryl) 25 mg PO HS PRN PRN Reason: Insomnia Last Admin: 12/22/16 21:19 Dose: 25 mg Docusate Sodium (Colace) 100 mg PO BID PRN PRN Reason: Constipation Last Admin: 12/19/16 09:27 Dose: 100 mg Ferrous Sulfate (Feosol) 324 mg PO TID [facility] Last Admin: 12/24/16 14:02 Dose: 324 mg Gabapentin (Neurontin) 300 mg PO TID [facility] PRN Reason: Protocol Last Admin: 12/24/16 14:02 Dose: 300 mg Heparin Sodium (Porcine) (Heparin) 5,000 units SC Q12 [facility] PRN Reason: Protocol Last Admin: 12/24/16 12:03 Dose: Not Given Hydralazine HCl (Apresoline) 10 mg IVP Q6 PRN PRN Reason: Systolic Blood Pressure Last Admin: 12/16/16 06:40 Dose: 10 mg Hydromorphone HCl (Dilaudid) 0.5 mg IVP Q4H PRN PRN Reason: Pain, severe (8-10) Last Admin: 12/24/16 15:46 Dose: 0.5 mg Piperacillin Sod/Tazobactam Sod (Zosyn 3.375 In Ns 100ml) 100 mls @ 200 mls/hr IVPB Q6 [facility] PRN Reason: Protocol Stop: 01/05/17 12:01 Last Admin: 12/24/16 12:02 Dose: 200 mls/hr Insulin Detemir (Levemir) 25 unit SC HS [facility] Last Admin: 12/23/16 22:56 Dose: 25 unit Insulin Human Regular (Humulin R Low) 0 units SC ACHS [facility] PRN Reason: Protocol Last Admin: 12/24/16 12:03 Dose: Not Given Linezolid (Zyvox) 600 mg PO BID [facility] PRN Reason: Protocol Stop: 12/29/16 18:01 Last Admin: 12/23/16 17:02 Dose: 600 mg Lorazepam (Ativan) 0.5 mg PO TID PRN; Protocol PRN Reason: Anxiety Last Admin: 12/20/16 09:08 Dose: 0.5 mg Morphine Sulfate (Morphine Extended Release Tab) 30 mg PO Q12 [facility] Last Admin: 12/24/16 11:00 Dose: 30 mg Ondansetron HCl (Zofran Inj) 4 mg IVP Q4H PRN PRN Reason: Nausea/Vomiting Pantoprazole Sodium (Protonix Ec Tab) 40 mg PO 0600 [facility] Last Admin: 12/24/16 06:02 Dose: 40 mg Trazodone HCl (Desyrel) 50 mg PO [facility] Last Admin: 12/23/16 21:07 Dose: Not Given - Labs Labs: 12/24/16 08:00 12/22/16 06:30 PT 11.6 Seconds (9.9-11.8) 11/25/16 03:00 INR 1.07 (0.93-1.08) 11/25/16 03:00 APTT 24.2 Seconds (23.7-30.8) 11/25/16 03:00 Attending/Attestation - Attestation I have personally seen and examined this patient.: Yes I have fully participated in the care of the patient.: Yes I have reviewed all pertinent clinical information, including history, physical exam and plan: Yes Notes (Text): 12/24/16 16:31 attending note; And seen with employment evaluator/case manager and psychiatrist. Patient is a 51 year old female with PMH of HI, diabetes, hypertension, chronic heel ulcer , chronic OM on IV zosyn and zyvox for Left heel osteomyelitis, need total 6 weeks of antibiotics. Patient also has CKD, creatinin is 1.8 stable. Patient has chronic anemia and hemoglobin is stable. Patient was also evaluated by Ophthalmology and is found to have Cataract, will need out patient surgery. case discussed with patient's PMD in detail. Patient is awaiting for placement.
--- NOTE | 2016-12-23 14:36 | CP.PCM.PN ---
Subjective - Date & Time of Evaluation Date of Evaluation: 12/23/16 Time of Evaluation: 10:30 - Subjective Subjective: Comfortable, upset she is being sent to a subacute rehab. No fevers overnight, still has some pain in the left heel. Objective - Vital Signs/Intake and Output Vital Signs (last 24 hours): Temp Pulse Resp BP Pulse Ox 98 F 89 20 128/85 98 12/23/16 08:17 12/23/16 08:17 12/23/16 08:17 12/23/16 08:12/23/16 08:17 Intake and Output: 12/23/16 12/23/16 06:59 18:59 Intake Total 720 320 Output Total 550 Balance 170 320 - Medications Medications: Current Medications Albuterol/Ipratropium (Duoneb 3 Mg/0.5 Mg (3 Ml) Ud) 3 ml IH [id number] PRN PRN Reason: Shortness of Breath Atorvastatin Calcium (Lipitor) 20 mg PO DIN [facility] Last Admin: 12/22/16 17:38 Dose: 20 mg Benzocaine/Menthol (Cepacol Sore Throat) 1 mickey MT Q2H PRN PRN Reason: Sore Throat Last Admin: 12/18/16 17:18 Dose: 1 mickey Clopidogrel Bisulfate (Plavix) 75 mg PO DAILY [facility] Last Admin: 12/22/16 11:03 Dose: 75 mg Diphenhydramine HCl (Benadryl) 25 mg PO Q6 PRN PRN Reason: Itching / Pruritus Last Admin: 12/20/16 09:26 Dose: 25 mg Diphenhydramine HCl (Benadryl) 25 mg PO HS PRN PRN Reason: Insomnia Last Admin: 12/22/16 21:19 Dose: 25 mg Docusate Sodium (Colace) 100 mg PO BID PRN PRN Reason: Constipation Last Admin: 12/19/16 09:27 Dose: 100 mg Gabapentin (Neurontin) 300 mg PO TID [facility] PRN Reason: Protocol Last Admin: 12/22/16 17:38 Dose: 300 mg Heparin Sodium (Porcine) (Heparin) 5,000 units SC Q12 [facility] PRN Reason: Protocol Last Admin: 12/22/16 21:23 Dose: Not Given Hydralazine HCl (Apresoline) 10 mg IVP Q6 PRN PRN Reason: Systolic Blood Pressure Last Admin: 12/16/16 06:40 Dose: 10 mg Hydromorphone HCl (Dilaudid) 0.5 mg IVP Q4H PRN PRN Reason: Pain, severe (8-10) Last Admin: 12/23/16 05:15 Dose: 0.5 mg Piperacillin Sod/Tazobactam Sod (Zosyn 3.375 In Ns 100ml) 100 mls @ 200 mls/hr IVPB Q6 [facility] PRN Reason: Protocol Stop: 01/05/17 12:01 Last Admin: 12/23/16 05:16 Dose: 200 mls/hr Insulin Detemir (Levemir) 25 unit SC HS [facility] Last Admin: 12/22/16 22:05 Dose: 25 unit Insulin Human Regular (Humulin R Low) 0 units SC ACHS [facility] PRN Reason: Protocol Last Admin: 12/22/16 23:58 Dose: Not Given Linezolid (Zyvox) 600 mg PO BID [facility] PRN Reason: Protocol Stop: 12/29/16 18:01 Last Admin: 12/22/16 17:39 Dose: 600 mg Lorazepam (Ativan) 0.5 mg PO TID PRN; Protocol PRN Reason: Anxiety Last Admin: 12/20/16 09:08 Dose: 0.5 mg Metoprolol Tartrate (Lopressor) 25 mg PO BID [facility] Last Admin: 12/22/16 17:38 Dose: 25 mg Morphine Sulfate (Morphine Extended Release Tab) 30 mg PO Q12 [facility] Last Admin: 12/22/16 21:18 Dose: 30 mg Ondansetron HCl (Zofran Inj) 4 mg IVP Q4H PRN PRN Reason: Nausea/Vomiting Pantoprazole Sodium (Protonix Ec Tab) 40 mg PO 0600 [facility] Last Admin: 12/23/16 05:17 Dose: 40 mg Trazodone HCl (Desyrel) 50 mg PO HS [facility] Last Admin: 12/22/16 21:23 Dose: Not Given - Labs Labs: 12/22/16 06:30 12/22/16 06:30 PT 11.6 Seconds (9.9-11.8) 11/25/16 03:00 INR 1.07 (0.93-1.08) 11/25/16 03:00 APTT 24.2 Seconds (23.7-30.8) 11/25/16 03:00 - Constitutional Appears: Non-toxic, No Acute Distress - Head Exam Head Exam: NORMAL INSPECTION - ENT Exam ENT Exam: Mucous Membranes Moist - Neck Exam Neck Exam: absent: Lymphadenopathy, Meningismus - Respiratory Exam Respiratory Exam: Decreased Breath Sounds - Cardiovascular Exam Cardiovascular Exam: +S1, +S2 - GI/Abdominal Exam GI & Abdominal Exam: Soft. absent: Tenderness Assessment and Plan - Assessment and Plan (Free Text) Plan: Assessment Probable left foot osteomyelitis (was on antibiotics prior to admission), growing staph aureus and multidrug resistant Proteus only sensitive to Zosyn, and MRSA S/P left PICC line placement dyslipidemia DM HTN history of cholecystitis chronic renal failure history of uterine cancer CAD history of depression history of DVT Plan continue Zosyn and Zyvox (day 27); discussed with Dr. Brady - patient has exposed bone will follow clinically while the patient is in the hospital; patient should have 4-6 weeks of Zosyn and Zyvox with weekly ESR, CRP, CBC, CMP
[2016-12-23] MEDS: Insulin Detemir 100 units/ml Vial (Levemir) SC SCH (22:56)
[2016-12-24] MEDS: HYDROmorphone 0.5 mg/0.5 ml ISec IVP PRN ×3 (01:02→15:46)
[2016-12-24] MEDS ORDERED: HYDROmorphone 0.5 mg/0.5 ml ISec IVP ONE (02:47)
[2016-12-24] MEDS: Piperacillin/Tazobact 3.375 gm 100 ML IVPB SCH ×2 (06:01→12:02)
[2016-12-24] MEDS: Pantoprazole 40 mg EC Tab PO SCH (06:02)
--- NOTE | 2016-12-24 06:26 | CP.PCM.PN ---
Subjective - Date & Time of Evaluation Date of Evaluation: 12/24/16 Time of Evaluation: 06:26 - Subjective Subjective: 51F PT seen and examined at bedside. Patient sounds aggravated and at the meeting, patient was upset and did not want to go to the [facility] that was arranged for the patient. Patient admits to pain on left heel. Patient did not answer anymore questions at time of visit due to aggravation. Objective - Vital Signs/Intake and Output Vital Signs (last 24 hours): Temp Pulse Resp BP Pulse Ox 97.6 F 87 20 144/83 95 12/23/16 16:00 12/23/16 17:02 12/23/16 16:00 12/23/16 17:02 12/23/16 16:00 Intake and Output: 12/23/16 12/24/16 18:59 06:59 Intake Total 320 540 Output Total 300 Balance 320 240 - Medications Medications: Current Medications Albuterol/Ipratropium (Duoneb 3 Mg/0.5 Mg (3 Ml) Ud) 3 ml IH [id number] PRN PRN Reason: Shortness of Breath Atorvastatin Calcium (Lipitor) 20 mg PO DIN [facility]KKI Last Admin: 12/23/16 17:02 Dose: 20 mg Benzocaine/Menthol (Cepacol Sore Throat) 1 mickey MT Q2H PRN PRN Reason: Sore Throat Last Admin: 12/18/16 17:18 Dose: 1 mickey Diphenhydramine HCl (Benadryl) 25 mg PO Q6 PRN PRN Reason: Itching / Pruritus Last Admin: 12/20/16 09:26 Dose: 25 mg Diphenhydramine HCl (Benadryl) 25 mg PO HS PRN PRN Reason: Insomnia Last Admin: 12/22/16 21:19 Dose: 25 mg Docusate Sodium (Colace) 100 mg PO BID PRN PRN Reason: Constipation Last Admin: 12/19/16 09:27 Dose: 100 mg Gabapentin (Neurontin) 300 mg PO TID [facility] PRN Reason: Protocol Last Admin: 12/23/16 17:02 Dose: 300 mg Heparin Sodium (Porcine) (Heparin) 5,000 units SC Q12 [facility] PRN Reason: Protocol Last Admin: 12/23/16 21:08 Dose: Not Given Hydralazine HCl (Apresoline) 10 mg IVP Q6 PRN PRN Reason: Systolic Blood Pressure Last Admin: 12/16/16 06:40 Dose: 10 mg Hydromorphone HCl (Dilaudid) 0.5 mg IVP Q4H PRN PRN Reason: Pain, severe (8-10) Last Admin: 12/24/16 01:02 Dose: 0.5 mg Piperacillin Sod/Tazobactam Sod (Zosyn 3.375 In Ns 100ml) 100 mls @ 200 mls/hr IVPB Q6 [facility] PRN Reason: Protocol Stop: 01/05/17 12:01 Last Admin: 12/24/16 06:01 Dose: 200 mls/hr Insulin Detemir (Levemir) 25 unit SC HS [facility] Last Admin: 12/23/16 22:56 Dose: 25 unit Insulin Human Regular (Humulin R Low) 0 units SC [facility] PRN Reason: Protocol Last Admin: 12/23/16 22:55 Dose: Not Given Linezolid (Zyvox) 600 mg PO BID [facility] PRN Reason: Protocol Stop: 12/29/16 18:01 Last Admin: 12/23/16 17:02 Dose: 600 mg Lorazepam (Ativan) 0.5 mg PO TID PRN; Protocol PRN Reason: Anxiety Last Admin: 12/20/16 09:08 Dose: 0.5 mg Morphine Sulfate (Morphine Extended Release Tab) 30 mg PO Q12 [facility] Last Admin: 12/23/16 22:54 Dose: 30 mg Ondansetron HCl (Zofran Inj) 4 mg IVP Q4H PRN PRN Reason: Nausea/Vomiting Pantoprazole Sodium (Protonix Ec Tab) 40 mg PO 0600 [facility] Last Admin: 12/24/16 06:02 Dose: 40 mg Trazodone HCl (Desyrel) 50 mg PO HS [facility] Last Admin: 12/23/16 21:07 Dose: Not Given - Labs Labs: 12/22/16 06:30 12/22/16 06:30 PT 11.6 Seconds (9.9-11.8) 11/25/16 03:00 INR 1.07 (0.93-1.08) 11/25/16 03:00 APTT 24.2 Seconds (23.7-30.8) 11/25/16 03:00 - Constitutional Appears: Non-toxic, No Acute Distress - Head Exam Head Exam: NORMAL INSPECTION - Eye Exam Eye Exam: EOMI, Normal appearance - ENT Exam ENT Exam: Mucous Membranes Moist - Extremities Exam Extremities Exam: absent: Joint Swelling, Pedal Edema Additional comments: left calcaneus sore upon palpation - Neurological Exam Neurological Exam: Awake - Psychiatric Exam Psychiatric exam: Agitated. absent: Normal Affect, Normal Mood - Skin Skin Exam: Dry, Intact, Normal Color, Warm
[2016-12-24 08:11] LABS: ADD MANUAL DIFF? NO
[2016-12-24 08:16] LABS: BASO # 0.01 K/mm3 (0.0-2.0); BASO % 0.2 % (0.0-3.0); EOS # 0.4 (0.0-0.7); EOS % 7.1 % (1.5-5.0); GRAN # 2.51 (1.4-6.5); GRAN % 44.3 % (50.0-68.0); LYMPH # 2.3 (1.2-3.4); LYMPH % 40.8 % (22.0-35.0); MEAN CELL VOLUME 78.8 fL (80.0-105.0); MEAN CORPUSCULAR HEMOGLOBIN 26.7 pg (25.0-35.0); MEAN CORPUSCULAR HGB CONC 33.9 g/dl (31.0-37.0); MEAN PLATELET VOLUME 9.1 fl (7.0-11.0); MONO # 0.4 (0.1-0.6); MONO % 7.6 % (1.0-6.0); PLATELET COUNT 107 10^3/uL (120.0-450.0); RED CELL DISTRIBUTION WIDTH 15.3 % (11.5-14.5); WHITE BLOOD COUNT 5.7 10^3/ul (4.5-11.0)
[2016-12-24 08:39] VITALS: BP 140/80; PULSE 80; TEMP 98.1; O2SAT 96
--- NOTE | 2016-12-24 10:18 | CP.PCM.PN ---
<Lili Schulz - Last Filed: 12/24/16 12:18> Subjective - Date & Time of Evaluation Date of Evaluation: 12/24/16 Time of Evaluation: 12:00 - Subjective Subjective: 51 y/o female pt seen at bedside today regarding left heel ulceration. Patient sounds aggravated and at the meeting, patient was upset and did not want to go to the [facility] that was arranged for the patient. Admits to increased left heel pain today, graded 5/10. Denies any other problems at this time. Objective - Vital Signs/Intake and Output Vital Signs (last 24 hours): Temp Pulse Resp BP Pulse Ox 98.1 F 80 20 140/80 96 12/24/16 08:00 12/24/16 08:00 12/24/16 08:00 12/24/16 08:00 12/24/16 08:00 Intake and Output: 12/24/16 12/24/16 06:59 18:59 Intake Total 540 Output Total 300 Balance 240 - Medications Medications: Current Medications Albuterol/Ipratropium (Duoneb 3 Mg/0.5 Mg (3 Ml) Ud) 3 ml IH [id number] PRN PRN Reason: Shortness of Breath Atorvastatin Calcium (Lipitor) 20 mg PO DIN [facility] Last Admin: 12/23/16 17:02 Dose: 20 mg Benzocaine/Menthol (Cepacol Sore Throat) 1 mickey MT Q2H PRN PRN Reason: Sore Throat Last Admin: 12/18/16 17:18 Dose: 1 mickey Diphenhydramine HCl (Benadryl) 25 mg PO Q6 PRN PRN Reason: Itching / Pruritus Last Admin: 12/20/16 09:26 Dose: 25 mg Diphenhydramine HCl (Benadryl) 25 mg PO HS PRN PRN Reason: Insomnia Last Admin: 12/22/16 21:19 Dose: 25 mg Docusate Sodium (Colace) 100 mg PO BID PRN PRN Reason: Constipation Last Admin: 12/19/16 09:27 Dose: 100 mg Gabapentin (Neurontin) 300 mg PO TID [facility] PRN Reason: Protocol Last Admin: 12/23/16 17:02 Dose: 300 mg Heparin Sodium (Porcine) (Heparin) 5,000 units SC Q12 [facility] PRN Reason: Protocol Last Admin: 12/23/16 21:08 Dose: Not Given Hydralazine HCl (Apresoline) 10 mg IVP Q6 PRN PRN Reason: Systolic Blood Pressure Last Admin: 12/16/16 06:40 Dose: 10 mg Hydromorphone HCl (Dilaudid) 0.5 mg IVP Q4H PRN PRN Reason: Pain, severe (8-10) Last Admin: 12/24/16 08:18 Dose: 0.5 mg Piperacillin Sod/Tazobactam Sod (Zosyn 3.375 In Ns 100ml) 100 mls @ 200 mls/hr IVPB Q6 [facility] PRN Reason: Protocol Stop: 01/05/17 12:01 Last Admin: 12/24/16 06:01 Dose: 200 mls/hr Insulin Detemir (Levemir) 25 unit SC HS [facility] Last Admin: 12/23/16 22:56 Dose: 25 unit Insulin Human Regular (Humulin R Low) 0 units SC [facility] PRN Reason: Protocol Last Admin: 12/23/16 22:55 Dose: Not Given Linezolid (Zyvox) 600 mg PO BID [facility] PRN Reason: Protocol Stop: 12/29/16 18:01 Last Admin: 12/23/16 17:02 Dose: 600 mg Lorazepam (Ativan) 0.5 mg PO TID PRN; Protocol PRN Reason: Anxiety Last Admin: 12/20/16 09:08 Dose: 0.5 mg Morphine Sulfate (Morphine Extended Release Tab) 30 mg PO Q12 [facility] Last Admin: 12/23/16 22:54 Dose: 30 mg Ondansetron HCl (Zofran Inj) 4 mg IVP Q4H PRN PRN Reason: Nausea/Vomiting Pantoprazole Sodium (Protonix Ec Tab) 40 mg PO 0600 [facility] Last Admin: 12/24/16 06:02 Dose: 40 mg Trazodone HCl (Desyrel) 50 mg PO HS [facility] Last Admin: 12/23/16 21:07 Dose: Not Given - Labs Labs: 12/24/16 08:00 12/22/16 06:30 PT 11.6 Seconds (9.9-11.8) 11/25/16 03:00 INR 1.07 (0.93-1.08) 11/25/16 03:00 APTT 24.2 Seconds (23.7-30.8) 11/25/16 03:00 - Constitutional Appears: Well, Non-toxic, No Acute Distress - Extremities Exam Additional comments: Left foot focused exam: Dressing to left foot appears c/d/i, seen again not wearing offloading boots to feet Vasc: DP and PT pulses are palpable 1/4 bilaterally, METAL BURRER < 3 seconds to all digits, temperature gradient WNL, No pitting or non-pitting edema noted Derm: Full thickness ulceration noted to the left heel measuring approximately 3.6 x 3.4 x 0.4 cm with 100% granular base with no probe to bone noted, no purulence, no fluctuance, no active drainage noted, (-) probe to bone, no periwound erythema, no malodor, no clinical suspicion of infection Neuro: protective pedal sensation is grossly diminished Ortho: tenderness to palpation of the left heel - Neurological Exam Neurological Exam: Alert, Awake Assessment and Plan - Assessment and Plan (Free Text) Assessment: 51 y/o female seen at bedside with 1) Smith grade 2 ulceration to left heel 2) Left calcaneal osteomyelitis. Plan: Patient S&E at bedside, discussed with attending, Dr. Hughes present. Chart, labs, vitals reviewed: afebrile, absent leukocytosis. Ulceration cleansed with sterile water and dressed using petroleum gauze, ABD and kerlix. 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 <Tyler Hughes - Last Filed: 12/25/16 08:10> Objective - Vital Signs/Intake and Output Vital Signs (last 24 hours): Temp Pulse Resp BP Pulse Ox 98.1 F 80 20 140/80 96 12/24/16 08:00 12/24/16 08:00 12/24/16 08:00 12/24/16 08:00 12/24/16 08:00 - Labs Labs: 12/24/16 08:00 12/22/16 06:30 PT 11.6 Seconds (9.9-11.8) 11/25/16 03:00 INR 1.07 (0.93-1.08) 11/25/16 03:00 APTT 24.2 Seconds (23.7-30.8) 11/25/16 03:00 Attending/Attestation - Attestation I have personally seen and examined this patient.: Yes I have fully participated in the care of the patient.: Yes I have reviewed all pertinent clinical information, including history, physical exam and plan: Yes
[2016-12-24] MEDS: Morphine 30 mg SR Tab PO SCH (11:00)
[2016-12-24] MEDS ORDERED: HYDROmorphone 0.5 mg/0.5 ml ISec IVP STA (11:11)
--- NOTE | 2016-12-24 11:25 | CP.PCM.DIS ---
<HiralEdda - Last Filed: 12/24/16 11:29> Provider - Provider Date of Admission: 11/27/16 14:25 Attending physician: Jorge Manuel MD Consults: Dr. Hughes left heel pain, osteomyelitis Dr. Beauchamp for Osteomyelitis Dr. Negrete for vision changes Dr. Deng for Bipolar disease and depression Social work for evaluation Time Spent in preparation of Discharge (in minutes): 30 Hospital Course - Lab Results Lab Results: Micro Results 12/20/16 10:49 Stool C. difficile Antigen & Toxin A,B (M - Final Most Recent Lab Values WBC 5.7 10^3/ul (4.5-11.0) 12/24/16 08:00 RBC 2.92 10^6/uL (3.5-6.1) L 12/24/16 08:00 Hgb 7.8 gm/dL (12.0-16.0) L 12/24/16 08:00 Hct 23.0 % (36.0-48.0) L 12/24/16 08:00 MCV 78.8 fL (80.0-105.0) L 12/24/16 08:00 MCH 26.7 pg (25.0-35.0) 12/24/16 08:00 MCHC 33.9 g/dl (31.0-37.0) 12/24/16 08:00 RDW 15.3 % (11.5-14.5) H 12/24/16 08:00 Plt Count 107 10^3/uL (120.0-450.0) L 12/24/16 08:00 MPV 9.1 fl (7.0-11.0) 12/24/16 08:00 Gran % 44.3 % (50.0-68.0) L 12/24/16 08:00 Lymph % (Auto) 40.8 % (22.0-35.0) H 12/24/16 08:00 [place] % (Auto) 7.6 % (1.0-6.0) H 12/24/16 08:00 Eos % (Auto) 7.1 % (1.5-5.0) H 12/24/16 08:00 Baso % (Auto) 0.2 % (0.0-3.0) 12/24/16 08:00 Gran # 2.51 (1.4-6.5) 12/24/16 08:00 Lymph # 2.3 (1.2-3.4) 12/24/16 08:00 [place] # 0.4 (0.1-0.6) 12/24/16 08:00 Eos # 0.4 (0.0-0.7) 12/24/16 08:00 Baso # 0.01 K/mm3 (0.0-2.0) 12/24/16 08:00 ESR 80 mm/hr (0.0-20.0) H 12/19/16 08:00 PT 11.6 Seconds (9.9-11.8) 11/25/16 03:00 INR 1.07 (0.93-1.08) 11/25/16 03:00 APTT 24.2 Seconds (23.7-30.8) 11/25/16 03:00 D-Dimer, Quantitative 1.55 mg/L FEU (0-0.50) H 11/25/16 03:00 Sodium 139 mmol/L (132-148) 12/22/16 06:30 Potassium 4.5 mmol/L (3.6-5.0) 12/22/16 06:30 Chloride 108 mmol/L (98-107) H 12/22/16 06:30 Carbon Dioxide 21 mmol/L (21-33) 12/22/16 06:30 Anion Gap 15 (10-20) 12/22/16 06:30 BUN 41 mg/dL (7-21) H 12/22/16 06:30 Creatinine 1.7 mg/dL (0.5-1.4) H 12/22/16 06:30 Est GFR ( Amer) 38 12/22/16 06:30 Est GFR (Non-Af Amer) 31 12/22/16 06:30 POC Glucose (mg/dL) 286 mg/dL (65-110) H 12/23/16 21:22 Random Glucose 70 mg/dL (70-110) 12/22/16 06:30 Hemoglobin A1c 8.2 % (4.2-6.5) H 11/26/16 05:45 Calcium 8.9 mg/dL (8.4-10.5) 12/22/16 06:30 Phosphorus 3.3 mg/dL (2.5-4.5) 11/26/16 05:45 Magnesium 1.8 mg/dL (1.7-2.2) 11/26/16 05:45 Iron 78 ug/dL (45-180) 11/25/16 12:55 TIBC 285 ug/dL (265-497) 11/25/16 12:55 % Saturation 27 % (20-55) 11/25/16 12:55 Ferritin 33.1 ng/mL 11/25/16 12:55 Total Bilirubin 0.4 mg/dL (0.2-1.3) 12/22/16 06:30 AST 40 U/L (15-39) H 12/22/16 06:30 ALT 43 U/L (7-56) 12/22/16 06:30 Alkaline Phosphatase 419 U/L (38-133) H 12/22/16 06:30 Lactate Dehydrogenase 499 U/L (333-699) 11/25/16 03:00 Total Creatine Kinase 50 U/L (35-230) 11/25/16 03:00 Troponin I < 0.01 ng/mL 11/25/16 12:55 C-React Prot High Sens 0.89 mg/L (1.00-3.00) L 12/19/16 08:00 NT-Pro-B Natriuret Pep 1060 pg/mL (0-450) H 11/25/16 12:55 Total Protein 6.6 g/dL (5.8-8.3) 12/22/16 06:30 Albumin 3.2 g/dL (3.0-4.8) 12/22/16 06:30 Globulin 3.4 gm/dL 12/22/16 06:30 Albumin/Globulin Ratio 0.9 (1.1-1.8) L 12/22/16 06:30 Triglycerides 111 mg/dL (35-160) 11/25/16 12:55 Cholesterol 201 mg/dL (130-200) H 11/25/16 12:55 LDL Cholesterol Direct 103 mg/dL (0-129) 11/25/16 12:55 HDL Cholesterol 54 mg/dL (29-60) 11/25/16 12:55 Lipase < 10 U/L (23-300) L 12/08/16 11:30 Vitamin B12 282 pg/mL (239-931) 11/25/16 12:55 Folate > 20.0 ng/mL 11/25/16 12:55 TSH 3rd Generation 3.86 mIU/mL (0.46-4.68) 11/25/16 12:55 Urine Color Yellow (YELLOW) 12/21/16 16:00 Urine Appearance Clear (CLEAR) 12/21/16 16:00 Urine pH 6.5 (4.7-8.0) 12/21/16 16:00 Ur Specific [place] 1.015 (1.005-1.035) 12/21/16 16:00 Urine Protein 100 mg/dL (<30 mg/dL) H 12/21/16 16:00 Urine Glucose (UA) Negative mg/dL (NEGATIVE) 12/21/16 16:00 Urine Ketones Negative mg/dL (NEGATIVE) 12/21/16 16:00 Urine Blood Small (NEGATIVE) H 12/21/16 16:00 Urine Nitrate Negative (NEGATIVE) 12/21/16 16:00 Urine Bilirubin Negative (NEGATIVE) 12/21/16 16:00 Urine Urobilinogen 0.2 E.U./dL (<1 E.U./dL) 12/21/16 16:00 Ur Leukocyte Esterase Small Bishnu/uL (NEGATIVE) H 12/21/16 16:00 Urine RBC 2 - 5 /hpf (0-2) 12/21/16 16:00 Urine WBC 5 - 10 /hpf (0-6) 12/21/16 16:00 Ur Epithelial Cells 3 - 4 /hpf (0-5) 12/21/16 16:00 Urine Bacteria Small (NEG) 12/21/16 16:00 Urine Other Uyeast 12/21/16 16:00 Urine Eosinophils Negative 12/21/16 16:00 Ur Random Creatinine 48 mg/dL 12/21/16 16:00 Ur Random Sodium 131 meq/L 12/21/16 16:00 Ur Random Potassium 32.6 meq/L 12/21/16 16:00 N.gonorrhoea Ab Cmp Fix 12/17/16 11:40 - Hospital Course Hospital Course: PT admitted 11/25/16 for PMH ID, HPL, DM, HTN, CKD, Asthma, bipolar disease, cholecystitis, depression, DVT, uterine cancer, lung cancer, thromboembolic disease presents with a one day duration of chest pain and left heel osteomyelitis. 11/29 Patient continues to refuse medications, HgB noted to decrease to 8.7 from 10, monitor closely via CBC, HgB returned back to 10. Patient continued to refuse IV antibiotics. IV Diluadid was changed from q4-q6; Chest Abd/Pelvis CT ordered but patient refused. No next of kin was available. On 12/01, CT chest/abd/pelv showed thyroid nodule, fibroid uterus, chronic pancreatitis; ID added Zyvox for MRSA. On 12/03 Psych stated patient doesn't have capacity to make decisions on her own. 12/07, patient was given Miralax for constipation. 12/21, BUN went up overnight; giving her IVF. Several meetings took place regarding the patient's placement into a facility. Patient is advised for Nancy care and Patient is set for discharge to [facility] with 2 more weeks of Zosyn. Please see MAR for further information - Date & Time of H&P Date of H&P: 12/24/16 Time of H&P: 11:33 Discharge Exam - Head Exam Head Exam: NORMAL INSPECTION - Eye Exam Eye Exam: EOMI, Normal appearance - ENT Exam ENT Exam: Mucous Membranes Moist - Respiratory Exam Respiratory Exam: Decreased Breath Sounds, NORMAL BREATHING PATTERN. absent: Accessory Muscle Use, UNREMARKABLE Additional comments: patient's posture: scapula protracted. decreased lung sounds - Cardiovascular Exam Cardiovascular Exam: REGULAR RHYTHM. absent: Bradycardia, Tachycardia - GI/Abdominal Exam GI & Abdominal Exam: Soft. absent: Rigid, Tenderness - Neurological Exam Neurological exam: Alert - Psychiatric Exam Psychiatric exam: Agitated, Depressed, Flat Affect - Skin Skin Exam: Dry, Normal Color, Warm Additional comments: left calcaneal wound with tenderness to palpation. wound was wrapped in kerlix Discharge Plan - Discharge Medications Prescriptions: LORazepam [Ativan] 0.5 mg PO TID PRN #12 tab PRN Reason: Anxiety DiphenhydrAMINE [Benadryl] 25 mg PO Q6 PRN #12 cap PRN Reason: Itching / Pruritus HYDROmorphone [Dilaudid 2 mg Tab] 2 mg PO Q6 PRN #12 tab PRN Reason: Pain, Moderate (4-7) Ferrous Sulfate [Feosol] 324 mg PO TID #12 ect Gabapentin [Neurontin] 300 mg PO TID #90 cap Pantoprazole [Protonix EC Tab] 40 mg PO 0600 #30 ect Piperacillin/Tazobact 3.375 gm [Zosyn 3.375 in NS 100ml] 3.375 gm IVPB Q6H #56 bag - Follow Up Plan Condition: STABLE Disposition: REHAB FACILITY/REHAB UNIT Instructions: Chest Pain (DC), MRSA (Methicillin Resistant Staphylococcus Aureus) (DC), Cellulitis (DC), Osteomyelitis (DC), Chronic Pain (DC), Peripherally Inserted Central Catheters and Midline Catheters (DC), Fall Prevention (GEN) Additional Instructions: 1. CONTINUE ZOSYN 3.375GM IV Q6H FOR 2 more WEEKS FOR TREATMENT OF OSTEOMYELITIS 2. RESUME HOME MEDICATIONS DIRECTED 3. RETURN TO THE EMERGENCY ROOM SHOULD YOUR SYMPTOMS WORSEN 4.BLOOD WORK WEEKLY: CBC, SMA 18 WITH SED RATE, CRP. <Jorge Manuel - Last Filed: 12/24/16 16:35> Provider - Provider Date of Admission: 11/27/16 14:25 Attending physician: Jorge Manuel MD Hospital Course - Lab Results Lab Results: Micro Results 12/20/16 10:49 Stool C. difficile Antigen & Toxin A,B (M - Final Most Recent Lab Values WBC 5.7 10^3/ul (4.5-11.0) 12/24/16 08:00 RBC 2.92 10^6/uL (3.5-6.1) L 12/24/16 08:00 Hgb 7.8 gm/dL (12.0-16.0) L 12/24/16 08:00 Hct 23.0 % (36.0-48.0) L 12/24/16 08:00 MCV 78.8 fL (80.0-105.0) L 12/24/16 08:00 MCH 26.7 pg (25.0-35.0) 12/24/16 08:00 MCHC 33.9 g/dl (31.0-37.0) 12/24/16 08:00 RDW 15.3 % (11.5-14.5) H 12/24/16 08:00 Plt Count 107 10^3/uL (120.0-450.0) L 12/24/16 08:00 MPV 9.1 fl (7.0-11.0) 12/24/16 08:00 Gran % 44.3 % (50.0-68.0) L 12/24/16 08:00 Lymph % (Auto) 40.8 % (22.0-35.0) H 12/24/16 08:00 [place] % (Auto) 7.6 % (1.0-6.0) H 12/24/16 08:00 Eos % (Auto) 7.1 % (1.5-5.0) H 12/24/16 08:00 Baso % (Auto) 0.2 % (0.0-3.0) 12/24/16 08:00 Gran # 2.51 (1.4-6.5) 12/24/16 08:00 Lymph # 2.3 (1.2-3.4) 12/24/16 08:00 [place] # 0.4 (0.1-0.6) 12/24/16 08:00 Eos # 0.4 (0.0-0.7) 12/24/16 08:00 Baso # 0.01 K/mm3 (0.0-2.0) 12/24/16 08:00 ESR 80 mm/hr (0.0-20.0) H 12/19/16 08:00 PT 11.6 Seconds (9.9-11.8) 11/25/16 03:00 INR 1.07 (0.93-1.08) 11/25/16 03:00 APTT 24.2 Seconds (23.7-30.8) 11/25/16 03:00 D-Dimer, Quantitative 1.55 mg/L FEU (0-0.50) H 11/25/16 03:00 Sodium 139 mmol/L (132-148) 12/22/16 06:30 Potassium 4.5 mmol/L (3.6-5.0) 12/22/16 06:30 Chloride 108 mmol/L (98-107) H 12/22/16 06:30 Carbon Dioxide 21 mmol/L (21-33) 12/22/16 06:30 Anion Gap 15 (10-20) 12/22/16 06:30 BUN 41 mg/dL (7-21) H 12/22/16 06:30 Creatinine 1.7 mg/dL (0.5-1.4) H 12/22/16 06:30 Est GFR ( Amer) 38 12/22/16 06:30 Est GFR (Non-Af Amer) 31 12/22/16 06:30 POC Glucose (mg/dL) 286 mg/dL (65-110) H 12/23/16 21:22 Random Glucose 70 mg/dL (70-110) 12/22/16 06:30 Hemoglobin A1c 8.2 % (4.2-6.5) H 11/26/16 05:45 Calcium 8.9 mg/dL (8.4-10.5) 12/22/16 06:30 Phosphorus 3.3 mg/dL (2.5-4.5) 11/26/16 05:45 Magnesium 1.8 mg/dL (1.7-2.2) 11/26/16 05:45 Iron 78 ug/dL (45-180) 11/25/16 12:55 TIBC 285 ug/dL (265-497) 11/25/16 12:55 % Saturation 27 % (20-55) 11/25/16 12:55 Ferritin 33.1 ng/mL 11/25/16 12:55 Total Bilirubin 0.4 mg/dL (0.2-1.3) 12/22/16 06:30 AST 40 U/L (15-39) H 12/22/16 06:30 ALT 43 U/L (7-56) 12/22/16 06:30 Alkaline Phosphatase 419 U/L (38-133) H 12/22/16 06:30 Lactate Dehydrogenase 499 U/L (333-699) 11/25/16 03:00 Total Creatine Kinase 50 U/L (35-230) 11/25/16 03:00 Troponin I < 0.01 ng/mL 11/25/16 12:55 C-React Prot High Sens 0.89 mg/L (1.00-3.00) L 12/19/16 08:00 NT-Pro-B Natriuret Pep 1060 pg/mL (0-450) H 11/25/16 12:55 Total Protein 6.6 g/dL (5.8-8.3) 12/22/16 06:30 Albumin 3.2 g/dL (3.0-4.8) 12/22/16 06:30 Globulin 3.4 gm/dL 12/22/16 06:30 Albumin/Globulin Ratio 0.9 (1.1-1.8) L 12/22/16 06:30 Triglycerides 111 mg/dL (35-160) 11/25/16 12:55 Cholesterol 201 mg/dL (130-200) H 11/25/16 12:55 LDL Cholesterol Direct 103 mg/dL (0-129) 11/25/16 12:55 HDL Cholesterol 54 mg/dL (29-60) 11/25/16 12:55 Lipase < 10 U/L (23-300) L 12/08/16 11:30 Vitamin B12 282 pg/mL (239-931) 11/25/16 12:55 Folate > 20.0 ng/mL 11/25/16 12:55 TSH 3rd Generation 3.86 mIU/mL (0.46-4.68) 11/25/16 12:55 Urine Color Yellow (YELLOW) 12/21/16 16:00 Urine Appearance Clear (CLEAR) 12/21/16 16:00 Urine pH 6.5 (4.7-8.0) 12/21/16 16:00 Ur Specific [place] 1.015 (1.005-1.035) 12/21/16 16:00 Urine Protein 100 mg/dL (<30 mg/dL) H 12/21/16 16:00 Urine Glucose (UA) Negative mg/dL (NEGATIVE) 12/21/16 16:00 Urine Ketones Negative mg/dL (NEGATIVE) 12/21/16 16:00 Urine Blood Small (NEGATIVE) H 12/21/16 16:00 Urine Nitrate Negative (NEGATIVE) 12/21/16 16:00 Urine Bilirubin Negative (NEGATIVE) 12/21/16 16:00 Urine Urobilinogen 0.2 E.U./dL (<1 E.U./dL) 12/21/16 16:00 Ur Leukocyte Esterase Small Bishnu/uL (NEGATIVE) H 12/21/16 16:00 Urine RBC 2 - 5 /hpf (0-2) 12/21/16 16:00 Urine WBC 5 - 10 /hpf (0-6) 12/21/16 16:00 Ur Epithelial Cells 3 - 4 /hpf (0-5) 12/21/16 16:00 Urine Bacteria Small (NEG) 12/21/16 16:00 Urine Other Uyeast 12/21/16 16:00 Urine Eosinophils Negative 12/21/16 16:00 Ur Random Creatinine 48 mg/dL 12/21/16 16:00 Ur Random Sodium 131 meq/L 12/21/16 16:00 Ur Random Potassium 32.6 meq/L 12/21/16 16:00 N.gonorrhoea Ab Cmp Fix 12/17/16 11:40 Attending/Attestation - Attestation I have personally seen and examined this patient.: Yes I have fully participated in the care of the patient.: Yes I have reviewed all pertinent clinical information, including history, physical exam and plan: Yes Notes (Text): 12/24/16 16:33 Attending note; Patient seen and examined with resident. Patient is alert and awake and calm today. Getting IV antibiotics as prescribed. Patient is a 51 year old female with past medical history of ID, diabetes, hypertension, chronic heel ulcer and chronic OM who was recently discharged to [facility] on iv antibiotics who presented with complaint of chest pain.workup is negative. Currently on IV zosyn for Left heel osteomyelitis. needs to complete 2 more weeks of IV Zosyn. Podiatry follow-up appreciated. Dressing changed. Off loading boots applied. Patient also has CKD and anemia. She is on levemir and insulin ss for diabetes. Physical therapy evaluation appreciated. Recommending subacute rehabilitation. Currently patient is alert, awake and oriented. transfer the patient to [facility] today. diagnosis; Chronic left leg osteomyelitis Diabetes Hypertension anxiety anemia Chronic kidney disease 12/24/16 16:34
[2016-12-24] MEDS: Insulin Reg-LOW-Coverage SC SCH ×3 (12:02→16:45)
--- NOTE | 2016-12-24 15:32 | CP.PCM.PN ---
Subjective - Date & Time of Evaluation Date of Evaluation: 12/24/16 Time of Evaluation: 10:25 - Subjective Subjective: Comfortable, afebrile. Objective - Vital Signs/Intake and Output Vital Signs (last 24 hours): Temp Pulse Resp BP Pulse Ox 97.6 F 87 20 144/83 95 12/23/16 16:00 12/23/16 17:02 12/23/16 16:00 12/23/16 17:02 12/23/16 16:00 Intake and Output: 12/24/16 12/24/16 06:59 18:59 Intake Total 540 Output Total 300 Balance 240 - Medications Medications: Current Medications Albuterol/Ipratropium (Duoneb 3 Mg/0.5 Mg (3 Ml) Ud) 3 ml IH [id number] PRN PRN Reason: Shortness of Breath Atorvastatin Calcium (Lipitor) 20 mg PO DIN MIKKI Last Admin: 12/23/16 17:02 Dose: 20 mg Benzocaine/Menthol (Cepacol Sore Throat) 1 mickey MT Q2H PRN PRN Reason: Sore Throat Last Admin: 12/18/16 17:18 Dose: 1 mickey Diphenhydramine HCl (Benadryl) 25 mg PO Q6 PRN PRN Reason: Itching / Pruritus Last Admin: 12/20/16 09:26 Dose: 25 mg Diphenhydramine HCl (Benadryl) 25 mg PO HS PRN PRN Reason: Insomnia Last Admin: 12/22/16 21:19 Dose: 25 mg Docusate Sodium (Colace) 100 mg PO BID PRN PRN Reason: Constipation Last Admin: 12/19/16 09:27 Dose: 100 mg Gabapentin (Neurontin) 300 mg PO TID MIKKI PRN Reason: Protocol Last Admin: 12/23/16 17:02 Dose: 300 mg Heparin Sodium (Porcine) (Heparin) 5,000 units SC Q12 MIKKI PRN Reason: Protocol Last Admin: 12/23/16 21:08 Dose: Not Given Hydralazine HCl (Apresoline) 10 mg IVP Q6 PRN PRN Reason: Systolic Blood Pressure Last Admin: 12/16/16 06:40 Dose: 10 mg Hydromorphone HCl (Dilaudid) 0.5 mg IVP Q4H PRN PRN Reason: Pain, severe (8-10) Last Admin: 12/24/16 01:02 Dose: 0.5 mg Piperacillin Sod/Tazobactam Sod (Zosyn 3.375 In Ns 100ml) 100 mls @ 200 mls/hr IVPB Q6 [facility] PRN Reason: Protocol Stop: 01/05/17 12:01 Last Admin: 12/24/16 06:01 Dose: 200 mls/hr Insulin Detemir (Levemir) 25 unit SC HS [facility] Last Admin: 12/23/16 22:56 Dose: 25 unit Insulin Human Regular (Humulin R Low) 0 units SC ACHS [facility] PRN Reason: Protocol Last Admin: 12/23/16 22:55 Dose: Not Given Linezolid (Zyvox) 600 mg PO BID [facility] PRN Reason: Protocol Stop: 12/29/16 18:01 Last Admin: 12/23/16 17:02 Dose: 600 mg Lorazepam (Ativan) 0.5 mg PO TID PRN; Protocol PRN Reason: Anxiety Last Admin: 12/20/16 09:08 Dose: 0.5 mg Morphine Sulfate (Morphine Extended Release Tab) 30 mg PO Q12 [facility] Last Admin: 12/23/16 22:54 Dose: 30 mg Ondansetron HCl (Zofran Inj) 4 mg IVP Q4H PRN PRN Reason: Nausea/Vomiting Pantoprazole Sodium (Protonix Ec Tab) 40 mg PO 0600 [facility] Last Admin: 12/24/16 06:02 Dose: 40 mg Trazodone HCl (Desyrel) 50 mg PO [facility] Last Admin: 12/23/16 21:07 Dose: Not Given - Labs Labs: 12/22/16 06:30 12/22/16 06:30 PT 11.6 Seconds (9.9-11.8) 11/25/16 03:00 INR 1.07 (0.93-1.08) 11/25/16 03:00 APTT 24.2 Seconds (23.7-30.8) 11/25/16 03:00 - Constitutional Appears: Non-toxic, No Acute Distress - Head Exam Head Exam: NORMAL INSPECTION - Neck Exam Neck Exam: absent: Meningismus - Respiratory Exam Respiratory Exam: Decreased Breath Sounds - Cardiovascular Exam Cardiovascular Exam: +S1, +S2 - GI/Abdominal Exam GI & Abdominal Exam: Soft. absent: Tenderness Assessment and Plan - Assessment and Plan (Free Text) Plan: Assessment Probable left foot osteomyelitis (was on antibiotics prior to admission), growing staph aureus and multidrug resistant Proteus only sensitive to Zosyn, and MRSA S/P left PICC line placement dyslipidemia DM HTN history of cholecystitis chronic renal failure history of uterine cancer CAD history of depression history of DVT Plan continue Zosyn and Zyvox (day 28); discussed with Dr. Brady - patient has exposed bone; patient developed thrombocytopenia and we will hold Zyvox will follow clinically while the patient is in the hospital; patient should have 4-6 weeks of Zosyn and Zyvox with weekly ESR, CRP, CBC, CMP
== END 2016-12-24 17:19 | DRG 294 ==
LOC: ED 02:43 → ERH 09:26 → 2RNO 10:59 → 5RSO 11-26 11:18 → OBSVTOIN 11-27 14:25
PROVIDERS: ADMIT Internal Medicine; ATTEND Internal Medicine
PROC: 02HV33Z Insertion of Infusion Device into Superior Vena Cava, Percutaneous Approach (ICD-10-PCS; principal; 2016-11-27)
PROC: B54NZZA Ultrasonography of Left Upper Extremity Veins, Guidance (ICD-10-PCS; 2016-11-27)
DX: E11.69 Type 2 diabetes mellitus with other specified complication (principal); M86.672 Other chronic osteomyelitis, left ankle and foot; L97.429 Non-pressure chronic ulcer of left heel and midfoot with unspecified severity; E11.621 Type 2 diabetes mellitus with foot ulcer; L03.116 Cellulitis of left lower limb; E11.22 Type 2 diabetes mellitus with diabetic chronic kidney disease; B96.4 Proteus (mirabilis) (morganii) as the cause of diseases classified elsewhere; E87.5 Hyperkalemia; F25.9 Schizoaffective disorder, unspecified; E86.0 Dehydration; D69.6 Thrombocytopenia, unspecified; B95.62 Methicillin resistant Staphylococcus aureus infection as the cause of diseases classified elsewhere; K86.1 Other chronic pancreatitis; I12.9 Hypertensive chronic kidney disease with stage 1 through stage 4 chronic kidney disease, or unspecified chronic kidney disease; N18.9 Chronic kidney disease, unspecified; F31.9 Bipolar disorder, unspecified; I25.10 Atherosclerotic heart disease of native coronary artery without angina pectoris; D63.8 Anemia in other chronic diseases classified elsewhere; E78.5 Hyperlipidemia, unspecified; J45.909 Unspecified asthma, uncomplicated; M48.00 Spinal stenosis, site unspecified; E04.1 Nontoxic single thyroid nodule; F60.89 Other specific personality disorders; H25.23 Age-related cataract, morgagnian type, bilateral; Z16.24 Resistance to multiple antibiotics; K59.00 Constipation, unspecified; R41.0 Disorientation, unspecified; R13.10 Dysphagia, unspecified; N89.8 Other specified noninflammatory disorders of vagina; Z85.118 Personal history of other malignant neoplasm of bronchus and lung; Z86.718 Personal history of other venous thrombosis and embolism; I25.2 Old myocardial infarction; Z91.14 Patient's other noncompliance with medication regimen; Z79.4 Long term (current) use of insulin; Z98.61 Coronary angioplasty status; Z85.42 Personal history of malignant neoplasm of other parts of uterus; Z75.1 Person awaiting admission to adequate facility elsewhere; Z99.3 Dependence on wheelchair